=== PATIENT | male | born 1930 | race African-American/Black ===

== ENCOUNTER 2016-10-15 08:19 | Inpatient (IN) | payer OTHER ==
--- NOTE | 2016-10-15 08:29 | PDOC ---
History of Present Illness - History of Present Illness Initial Comments: 10/15/16 08:28 The patient is an 86-year-old man, from [facility] with a significant past medical history of hypertension, hypercholesterolemia, coronary artery disease status post bare metal stent placement, atrial fibrillation, right atrial lipoma, latent tuberculosis, Alzheimer's dementia and diabetes mellitus who presents to the emergency department via EMS for further evaluation of shortness of breath. Patient was noted to be hypoxic at 79%. En route, patient received Decadron IV and 1 DuoNeb treatment. Upon ED arrival, patient was noted to have a rectal temperature of 104.3, tachycardic to the 160s, tachypneic to 44 and hypoxic at 85%. Patient was immediately placed on BiPAP, with improvement of his oxygen saturation to 90%. Patient was recently in this ED (10/08/2016) for upper respiratory symptoms and was found to be Influenza A positive. Patient was ultimately admitted and was discharged to [facility] on [address] on Tamiflu. History is limited, as patient is unresponsive. Allergies: Penicillin Past Surgical History: Stent placement. Social History: Former smoker. No ETOH or recreational drug use. Primary Care Physician: Dr. Sloane Phillips <Rowan Funes - Last Filed: 10/15/16 09:15> <Narinder Austin - Last Filed: 10/15/16 10:07> - General Chief Complaint: Respiratory Stated Complaint: RESPIRATORY DISTRESS Time Seen by Provider: 10/15/16 08:28 Past History <Rowan Funes - Last Filed: 10/15/16 09:15> - Past Medical History Dementia: Yes (Alzheimers) Diabetes: Yes HTN: Yes Hypercholesterolemia: Yes - Surgical History Cardiac Surgery: Yes (stent) - Psycho/Social/Smoking Cessation Hx Anxiety: No Suicidal Ideation: No Smoking History: Former smoker Have you smoked in the past 12 months: No If you are a former smoker, when did you quit?: 1999 Hx Alcohol Use: No Drug/Substance Use Hx: No Substance Use Type: None Hx Substance Use Treatment: No <Narinder Austin - Last Filed: 10/15/16 10:07> - Past Medical History Allergies/Adverse Reactions: Allergies Allergy/AdvReac Type Severity Reaction Status Date / Time Penicillins Allergy Verified 10/15/16 08:41 Home Medications: Ambulatory Orders Metoprolol Succinate [Toprol XL -] 12.5 mg PO DAILY 03/26/16 Acetaminophen [Tylenol] 650 mg PO Q6H PRN 10/08/16 Amlodipine Besylate [Norvasc -] 2.5 mg PO DAILY 10/08/16 Aspirin [ASA -] 81 mg PO DAILY 10/08/16 Cyanocobalamin Vit B-12 Inj. [Vitamin B12 Injection -] 1,000 mcg IM ASDIR Metformin HCl [Metformin HCl ER] 500 mg PO BID 10/08/16 Albuterol 0.083% Nebulizer Princess [Ventolin 0.083% Nebulizer Soln -] 1 amp NEB QIDR #20 amp 10/11/16 Oseltamivir Phosphate [Tamiflu] 75 mg PO BID #4 capsule 10/11/16 Review of Systems - Review of Systems Able to Perform ROS?: No (unresponsive) <Narinder Austin - Last Filed: 10/15/16 10:07> *Physical Exam - Physical Exam Comments: 10/15/16 08:28 GENERAL: Lethargic. Unresponsive to painful stimuli. HEAD: Normal with no signs of trauma. EYES: Pupils are constricted, bilaterally. ENT: Ears normal, nares patent, oropharynx clear without exudates. Dry mucous membranes. NECK: Normal range of motion, supple without lymphadenopathy, JVD, or masses. LUNGS: Breath sounds equal, clear to auscultation bilaterally. No wheeze/ crackles. HEART: Irregularly, tachycardia, without murmur or rub. ABDOMEN: Soft/nontender/nondistended. BS wnl. No guarding or rebound. No palpable masses. No hepatosplenomegaly. EXTREMITIES: Normal range of motion, no edema. No clubbing or cyanosis. No cords, erythema. NEUROLOGICAL: Limited, as patient is unresponsive. PSYCH: Deferred. SKIN: Warm, Dry, normal turgor, no rashes or lesions noted. <Rowan Funes - Last Filed: 10/15/16 09:15> Repeat PE for Septic Shock - Vital Signs Vital Signs: Vital Signs Temperature 101.5 F H 10/15/16 10:02 Pulse Rate 132 H 10/15/16 10:02 Respiratory Rate 16 10/15/16 10:02 Blood Pressure 138/68 04/10/17 09:40 O2 Sat by Pulse Oximetry (%) 93 L 10/15/16 10:02 I have reviewed the most recent vital signs: Yes - PE CV for Spetic Shock: Regular Rhythm (tachycardia) Lungs: Lungs Clear Vascular: Left Radial: 2+, Left Doralis Pedis: 1+ Capillary Refill: <3 seconds Skin exam: Normal Color, Dry - Impression Impression: Vasopressors not indicated, pt still hypovolemic <Narinder Austin - Last Filed: 10/15/16 10:07> Procedures - Intubation Time of Intubation: 08:47 Intubation Method: orotracheal Tube Size (Fr): 7.0 Medications: Etomidate (50 ccs at 08:46), Rocuronium (20 ccs at 08:45) Tube position @ lip (cm): 22 Tube position confirmed by: Direct visualization, Chest x-ray, Breath sounds Breath Sounds after Intubation: equal Intubation Complications: no complications Post Intubation Xray: Yes <Rowan Funes - Last Filed: 10/15/16 09:15> Heart Score/ECG Review #1 ECG reviewed & interpreted by me at: 08:32 Compared to previous ECG there are: Changes noted 10/15/16 09:27 Chief fibrillation at 160 with rapid ventricular response and occasional PVC. ST depressions in the lateral leads, likely demand related. When compared to prior EKG performed on 10/08/16, patient was previously in sinus rhythm. #2 ECG reviewed & interpreted by me at: 09:28 General ECG Interpretation: Sinus Rhythm (tachycardia at 137), Normal Intervals , No acute ischemic changes (TWI with ST depression V4-6) <Narinder Austin - Last Filed: 10/15/16 10:07> ED Treatment Course - LABORATORY CBC & Chemistry Diagram: 10/15/16 09:16 10/15/16 09:16 <Narinder Austin - Last Filed: 10/15/16 10:07> Medical Decision Making - Critical Care Time Total Critical Care Time (minutes): 95 Critical Care Statement: The care of this patient involved high complexity decision making to prevent further life threatening deterioration of the patient 's condition and/or to evalute & treat vital organ system(s) failure or risk of failure. - Medical Decision Making 10/15/16 09:28 A portion of this note was documented by scribe services under my direction. I have reviewed the details of the note, within reason, and agree with the documentation with the following case summary and management plan written by me. 86-year-old male with multiple medical problems recently admitted for influenza A and discharged to [facility] now sent with EMS for acute respiratory distress. Presents on bipap hypoxic to upper 70s/80s. unresponsive to pain febrile to 104.3 tachycardic, tachypneic Called to bedside to evaluate the patient emergently for presumed septic shock. RAPID SEQUENCE INTUBATION: etomidate and rocuronium used, 7.0ett passed without difficulty, confirmed with EtCO2. sepsis protocol initiated. broad abx, pcn allergy IVF resuscitation ICU admission. Accepted for admission by Dr. Jones, in the ED. 10/15/16 09:38 Maintain his blood pressure at 113 systolic. Heart rate improved to 130, now sinus after Cardizem. Receiving IV fluid boluses, antibiotics, will continue to monitor. Low urine output, continued IV fluid resuscitation. 10/15/16 10:05 Improved on fluids, antibiotics, vent. On my preliminary review of the chest x-ray, ET tube is in adequate position, there are bilateral infiltrates. Labs notable for leukocytosis of 18, normal hemoglobin, pH of 7.2, lactate of 8 , acute renal insufficiency with creatinine 1.9 but normal potassium, elevated troponin of 3. All consistent with septic shock, will proceed with ICU admission. <Narinder Austin - Last Filed: 10/15/16 10:07> *DC/Admit/Observation/Transfer - Attestations Scribe Attestion: 10/15/16 08:28 Documentation prepared by Rowan Funes, acting as medical care manager for Narinder Austin MD. <Rowan Funes - Last Filed: 10/15/16 09:15> - Discharge Dispostion Admit: Yes <Narinder Austin - Last Filed: 10/15/16 10:07> Diagnosis at time of Disposition: Acute respiratory failure with hypoxia, Septic shock Sepsis Qualifiers: Sepsis type: sepsis due to unspecified organism Qualified Code(s): A41.9 - Sepsis, unspecified organism - Referrals Referrals: Sloane Phillips MD [Primary Care Provider] -
[2016-10-15] MEDS ORDERED: DEXAMETHASONE SOD PHOSPHATE 10 MG/1 ML VIAL ONE (08:36)
[2016-10-15] MEDS ORDERED: ETOMIDATE 20 MG/10 ML AMPUL IVPUSH ONE (08:42)
[2016-10-15] MEDS ORDERED: RAPID SEQUENCE INTUBATION KIT NR ONE (08:42)
[2016-10-15] MEDS ORDERED: ACETAMINOPHEN INJECTION 100 ML IVPB ONE (08:42)
[2016-10-15] MEDS ORDERED: dilTIAZem HCL 125 MG/25 ML - 25 ML VIAL ONE (08:43)
[2016-10-15] MEDS ORDERED: SODIUM CHLORIDE 0.9% 1000 ML INFUS.BAG IV PRN (08:58)
[2016-10-15] MEDS ORDERED: SODIUM CHLORIDE 1,000 ML IV STA (08:58)
[2016-10-15] MEDS ORDERED: ACETAMINOPHEN 1000 MG/100 ML VIAL (NON FORMULARY) IVPB ONE (08:59)
[2016-10-15] MEDS ORDERED: VANCOMYCIN 1,000 MG in DEXTROSE 5%-WATER - 250 ML IVPB ONE (08:59)
[2016-10-15] MEDS ORDERED: ROCURONIUM BROMIDE 50 MG/5 ML VIAL IVPUSH ONE (08:59)
[2016-10-15] MEDS ORDERED: ETOMIDATE 40 MG/20 ML VIAL IVPUSH ONE (08:59)
[2016-10-15] MEDS ORDERED: LEVOFLOXACIN 500 MG IVPB 100 ML IVPB ONE ×2 (08:59→09:19)
[2016-10-15] MEDS ORDERED: IPRATROPIUM BR 0.02% 0.5 MG/2.5 ML VIAL.NEB. NEB ONE (09:00)
[2016-10-15] MEDS ORDERED: VANCOMYCIN 1 GRAM (PRE-DOCKED) 250 ML IVPB ONE (09:19)
[2016-10-15 09:25] LABS: MCH 27.5 pg (25.7-33.7); MCHC 32.2 g/dl (32.0-35.9); MEAN CELL VOLUME 85.4 fl (80-96); MEAN PLT VOLUME 9.1 fl (7.5-11.1); PLATELET COUNT 504 K/MM3 (134-434); RDW 14.5 % (11.9-15.9); WHITE BLOOD COUNT 18.7 K/mm3 (4.0-10.0)
[2016-10-15] MEDS ORDERED: dilTIAZem HCL 50 MG/10 ML - 10 ML VIAL IVPUSH ONE (09:36)
[2016-10-15] MEDS ORDERED: SODIUM CHLORIDE 1,000 ML IV ONE ×2 (09:36→09:52)
[2016-10-15 09:48] LABS: ALBUMIN 2.2 g/dl (3.4-5.0); BILIRUBIN,TOTAL 1.2 mg/dL (0.2-1.0); CALCIUM 9.4 mg/dL (8.5-10.1); COCKROFT - GAULT 35.8; CREATININE 1.9 mg/dL (0.7-1.3); INR 1.24 (0.82-1.09); PROTHROMBIN TIME (PATIENT) 13.7 SEC (9.98-11.88); TOT PROT 7.1 g/dl (6.4-8.2)
[2016-10-15 09:51] LABS: ACTIVATED PTT 35.9 SECONDS (26.9-34.4)
[2016-10-15 09:51] LABS: ARTERIAL BLD GAS O2 SATURATION 95.3 % (90-98.9); ARTERIAL BLOOD GAS HCO3 18.1 meq/L (22-26)
[2016-10-15 09:52] LABS: URINE APPEARANCE CLEAR; URINE BILIRUBIN NEGATIVE (NEGATIVE); URINE COLOR AMBER; URINE GLUCOSE (UA) 3+ (NEGATIVE); URINE KETONE 1+ (NEGATIVE); URINE LEUK ESTERASE NEGATIVE (NEGATIVE); URINE NITRITE NEGATIVE (NEGATIVE); URINE UROBILINOGEN 2.0 E.U/dl E.U./dl (0.2-1.0)
[2016-10-15 09:54] LABS: ALLENS TEST POSITIVE; ART PUNCT SITE RIGHT RADIAL; ARTERIAL BLOOD GAS pH 7.19 (7.35-7.45); LPM/O2% 100%; MECH. VENT. Y; METHEMOGLOBIN 0.8 % (0.4-1.5); PT. ON O2? YES; TYPE OF O2 MECH VENT; VENT RATE 12; VT/PRESS 550
[2016-10-15 09:59] LABS: URINE BLOOD 1+ (NEGATIVE); URINE PROTEIN 3+ (NEGATIVE)
[2016-10-15 10:03] LABS: TROPONIN I 3.47 ng/ml (0.00-0.05)
[2016-10-15 10:08] LABS: GRANULAR CASTS 42 /lpf; URINE HYALINE CAST 23 /lpf; URINE MUCUS FEW; URINE RBC 17 /hpf (0-3); URINE WBC 5 /hpf (3-5)
[2016-10-15] MEDS ORDERED: ASPIRIN 300 MG SUPP.RECT PR ONE (10:08)
[2016-10-15] MEDS ORDERED: ASPIRIN 300 MG SUPP.RECT RC ONE (10:12)
--- NOTE | 2016-10-15 11:09 | HP ---
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 Cardiovascular: Yes: HTN - Smoking History Smoking history: Former smoker Have you smoked in the past 12 months: No If you are a former smoker, when did you quit?: 1999 - Alcohol/Substance Use Hx Alcohol Use: No - Social History ADL: Independent <Regina Jones - Last Filed: 10/15/16 11:09> - Primary Care Physician PCP: Regina Jones - Admission Chief Complaint: SOB History of Present Illness: The patient is an 86-year-old man, from [facility] with a significant past medical history of hypertension, hypercholesterolemia, coronary artery disease status post bare metal stent placement, atrial fibrillation, right atrial lipoma, latent tuberculosis, Alzheimer's dementia and diabetes mellitus who presents to the emergency department via EMS for further evaluation of shortness of breath. Patient was noted to be hypoxic at 79%. En route, patient received Decadron IV and 1 DuoNeb treatment. Upon ED arrival, patient was noted to have a rectal temperature of 104.3, tachycardic to the 160s, tachypneic to 44 and hypoxic at 85%. Patient was immediately placed on BiPAP, with improvement of his oxygen saturation to 90%. Patient was recently in this ED (10/08/2016) for upper respiratory symptoms and was found to be Influenza A positive. Patient was ultimately admitted and was discharged to [facility] on Tamiflu. Patient intubated in ED due to respiratory distress. Workup in the ED consistent with Sepsis Given broad spectrum abx, IVF and steroids. Patient to be admitted to ICU. Patient seen by me in the ICU. Patient known to me from previous admission. Currently sedated and intubated in the ER. History Source: Medical Record Limitations to Obtaining History: Intubated <Zehra Bridges - Last Filed: 10/15/16 11:20> Home Medications <Regina Jones - Last Filed: 10/15/16 11:09> <Zehra Bridges - Last Filed: 10/15/16 11:20> - Allergies Allergies/Adverse Reactions: Allergies Allergy/AdvReac Type Severity Reaction Status Date / Time Penicillins Allergy Verified 10/15/16 08:41 - Home Medications Home Medications: Ambulatory Orders Metoprolol Succinate [Toprol XL -] 12.5 mg PO DAILY 03/26/16 Acetaminophen [Tylenol] 650 mg PO Q6H PRN 10/08/16 Amlodipine Besylate [Norvasc -] 2.5 mg PO DAILY 10/08/16 Aspirin [ASA -] 81 mg PO DAILY 10/08/16 Cyanocobalamin Vit B-12 Inj. [Vitamin B12 Injection -] 1,000 mcg IM ASDIR Metformin HCl [Metformin HCl ER] 500 mg PO BID 10/08/16 Albuterol 0.083% Nebulizer Princess [Ventolin 0.083% Nebulizer Soln -] 1 amp NEB QIDR #20 amp 10/11/16 Review of Systems Findings/Remarks: see HPI <Zehra Bridges - Last Filed: 10/15/16 11:20> Physical Examination Vital Signs: Vital Signs Temperature 100.7 F H 10/15/16 10:44 Pulse Rate 97 H 10/15/16 10:58 Respiratory Rate 16 10/15/16 10:58 Blood Pressure 104/70 10/15/16 10:58 O2 Sat by Pulse Oximetry (%) 97 10/15/16 10:58 <Regina Jones - Last Filed: 10/15/16 11:09> Vital Signs: Vital Signs Temperature 100.7 F H 10/15/16 10:44 Pulse Rate 97 H 10/15/16 10:58 Respiratory Rate 16 10/15/16 10:58 Blood Pressure 104/70 10/15/16 10:58 O2 Sat by Pulse Oximetry (%) 97 10/15/16 10:58 Findings/Remarks: Intubated Neck: Yes: Supple Cardiovascular: Yes: Regular Rate and Rhythm, Tachycardia Respiratory: Yes: Rhonchi (bilateral) Gastrointestinal: Yes: Soft Edema: No Neurological: Yes: Unresponsive <Zehra Bridges - Last Filed: 10/15/16 11:20> Imaging - Results Chest X-ray: Image Reviewed EKG: Report Reviewed <Zehra Bridges - Last Filed: 10/15/16 11:20> Problem List - Problems (1) Acute respiratory failure with hypoxia Code(s): J96.01 - ACUTE RESPIRATORY FAILURE WITH HYPOXIA (2) Sepsis Code(s): A41.9 - SEPSIS, UNSPECIFIED ORGANISM Qualifiers: Sepsis type: sepsis due to unspecified organism Qualified Code(s): A41.9 - Sepsis, unspecified organism (3) Septic shock Code(s): A41.9 - SEPSIS, UNSPECIFIED ORGANISM R65.21 - SEVERE SEPSIS WITH SEPTIC SHOCK (4) Alzheimer disease Code(s): G30.9 - ALZHEIMER'S DISEASE, UNSPECIFIED Qualifiers: Alzheimer's disease onset: early-onset Dementia behavioral disturbance : without behavioral disturbance Qualified Code(s): G30.0 - Alzheimer's disease with early onset; F02.81 - Dementia in other diseases classified elsewhere with behavioral disturbance (5) Influenza A Code(s): J10.1 - FLU DUE TO OTH IDENT INFLUENZA VIRUS W OTH RESP MANIFEST (6) Lactic acid blood increased Code(s): R79.89 - OTHER SPECIFIED ABNORMAL FINDINGS OF BLOOD CHEMISTRY <Zehra Bridges - Last Filed: 10/15/16 11:20> Assessment/Plan PAtient to be admitted to ICU. Broad spectrum abx. IVF. Monitor electrolytes and lactic acid level. Critical care team to follow. Condition critical. Will follow. Documentation prepared by Zehra Bridges, acting as a medical orderly for Regina Jones MD. <Zehra Bridges - Last Filed: 10/15/16 11:20>
--- NOTE | 2016-10-15 11:15 | EKG ---
Test Reason : Blood Pressure : / mmHG Vent. 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
[2016-10-15] MEDS ORDERED: SODIUM CHLORIDE 1,000 ML IV SCH ×2 (11:30→12:00)
--- NOTE | 2016-10-15 11:39 | CON.CARD ---
Consult Consult Specialty:: cardio Referred by:: kate Reason for Consultation:: afib, positive troponin, cad - History of Present Illness Chief Complaint: sepsis, fever History of Present Illness: 86-year-old man sent from [facility] with shortness of breath. Patient was noted to be hypoxic at 79%. En route, patient received Decadron IV and 1 DuoNeb treatment. Upon ED arrival, patient was noted to have a rectal temperature of 104.3, tachycardic to the 160s, tachypneic to 44 and hypoxic at 85%. + elevated lactic acid. Patient was immediately placed on BiPAP, with improvement of his oxygen saturation to 90%. Patient was recently in this ED (10/08/2016) for upper respiratory symptoms and was found to be Influenza A positive. Patient was ultimately admitted and was discharged to [facility] on Tamiflu. Patient intubated in ED due to respiratory distress. Workup in the ED consistent with Sepsis Given broad spectrum abx, IVF and steroids. intubated/sedated so no history obtainable at present PMH: hypertension, hypercholesterolemia, coronary artery disease status post bare metal stent placement (? details), right atrial lipoma, latent tuberculosis , Alzheimer's dementia and diabetes mellitus. 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 Cardio/Vascular: Yes: HTN - Alcohol/Substance Use Hx Alcohol Use: No - Smoking History Smoking history: Former smoker Have you smoked in the past 12 months: No If you are a former smoker, when did you quit?: 1999 - Social History Usual Living Arrangement: Alone ADL: Independent Home Medications - Allergies Allergies/Adverse Reactions: Allergies Allergy/AdvReac Type Severity Reaction Status Date / Time Penicillins Allergy Verified 10/15/16 08:41 - Home Medications Home Medications: Ambulatory Orders Metoprolol Succinate [Toprol XL -] 12.5 mg PO DAILY 03/26/16 Acetaminophen [Tylenol] 650 mg PO Q6H PRN 10/08/16 Amlodipine Besylate [Norvasc -] 2.5 mg PO DAILY 10/08/16 Aspirin [ASA -] 81 mg PO DAILY 10/08/16 Cyanocobalamin Vit B-12 Inj. [Vitamin B12 Injection -] 1,000 mcg IM ASDIR Metformin HCl [Metformin HCl ER] 500 mg PO BID 10/08/16 Albuterol 0.083% Nebulizer Princess [Ventolin 0.083% Nebulizer Soln -] [facility] 10/11/16 Family Disease History - Family Disease History Family History: Unable to Obtain Review of Systems Unable to obtain ROS, reason: intubated/sedated Vital Signs: Vital Signs Temperature 100.7 F H 10/15/16 10:44 Pulse Rate 97 H 10/15/16 10:58 Respiratory Rate 16 10/15/16 10:58 Blood Pressure 104/70 10/15/16 10:58 O2 Sat by Pulse Oximetry (%) 97 10/15/16 10:58 Constitutional: Yes: Well Nourished, No Distress Eyes: No: Sclera Icterus HENT: No: Nasal Congestion Neck: No: Decreased ROM Respiratory: Yes: CTA Bilaterally (anteriorly). No: Accessory Muscle Use, Rales , Wheezes Gastrointestinal: Yes: Normal Bowel Sounds. No: Distention, Hepatomegaly, Palpable Mass, Tenderness Cardiovascular: Yes: Regular Rate and Rhythm JVD: No Carotid Bruit: No PMI: Non-Displaced Heart Sounds: Yes: S1, S2. No: Gallop Murmur: No: Systolic Murmur, Diastolic Murmur Musculoskeletal: Yes: Other (No kyphosis) Extremities: No: Cold, Cyanosis Edema: No Peripheral Pulses: 2+ Left Carotid, 2+ Right Carotid, 2+ Left Doralis Pedis, 2+ Right Dorsalis Pedis Integumentary: No: Jaundice Neurological: No: Alert, Oriented Psychiatric: No: Agitated - Other Data Labs, Other Data: INR, PTT INR 1.24 (0.82-1.09) H 10/15/16 09:16 Laboratory Tests 10/15/16 10/15/16 10/15/16 09:15 09:16 09:16 WBC 18.7 H D Hgb 16.3 D Plt Count 504 H D INR 1.24 H ABG pH ABG pCO2 at Pt Temp ABG pO2 at Pt Temp Oxygen Flow Rate Sodium Potassium Carbon Dioxide BUN Creatinine Lactic Acid 8.135 H* AST ALT Troponin I 10/15/16 10/15/16 10/15/16 09:16 09:22 09:48 WBC Hgb Plt Count INR ABG pH 7.19 L* ABG pCO2 at Pt Temp 49.7 H ABG pO2 at Pt Temp 105.0 H Oxygen Flow Rate 100% Sodium 147 H Potassium 4.1 Carbon Dioxide 21 D BUN 33 H D Creatinine 1.9 H D Lactic Acid 7.074 H* AST 23 ALT 17 Troponin I 3.47 H* D tele: sinus tach to 120s Imaging - Results Chest X-ray: Image Reviewed Assessment/Plan acute hypoxic resp failure: -cxr with bilat infiltrates lower lung angel, new vs 10/08; no cephalization or effusions -suspect PNA (hi fever, recent + flu) >> chf -sepsis picture noted hi fever, sepsis -hemodynamically stable at present, without need for pressors lactic acidosis: -cont sepsis tx: ivf, abx JULIET: -creat 1.9, from 0.9-1.0 prior -? all sepsis -per crit care, pmd prior h/o CAD, elevated troponin: -trop 3.4, normal cp -florid sepsis picture makes the elevated troponin likely due to sepsis direct myocardial injury, vs Type II MN from hypoxia/tachycardia/? 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 with ST elevations of 1mm V1 and V2, but to 2.5mm in V3 and 1.5mm V4; there were only 0.5mm elevations in V1-V3 at baseline, ST segments flat in V4 previously -repeat ECG 11:53am, HR down to 118; q waves V1-3 with diffuse TWIs anteriorly c /w ischemia; 1mm ST elev v1/v2 persists; in V3 there may be 1mm elevations, however T wave appears to start immediately after the QRS and this may account for the appearance (no elevations in v4 at present) -cannot definitively rule out acute AWMI based on this ecg, however not likely given changes are improving, not evolving, on serial tracings; -presence of q waves in all leads with st elevation makes definitive dx of acute MN impossible -echo showing normal wall motion in anterior wall/septum will be helpful to rule out dx, however if it's abnormal we don't know if new or old in light of baseline ecg with old AWMI and no prior echo here -stat echo ordered--IF NORMAL MOTION IN ANTERIOR WALL, THIS IS DEFINITELY NOT ACUTE AW STEMI -pt currently at prohibitive risk for life-threatening complications of cath given JULIET, florid sepsis and acute hypoxic resp failure from PNA -signif dementia is a relative contraindication to thrombolysis--dr love states that dr mulligan reports pt A and O x 1 only at baseline, hence risks of ICH from lytics appear to be signif > benefits. -will trend cardiac enzymes -home meds: ASA, bb only -start ASA suppository (given already), UFH gtt -given doubt chf, will start low dose IV metopr (2.5mg q8hrs)--watch for hypotension -once NG or OG tube in place, will start statin, po bb and consider plavix est crit care time 38 min
[2016-10-15] MEDS ORDERED: HEPARIN NA (PORCINE) 5,000 UNITS/ML 1ML VIAL IVPUSH PRN (12:20)
--- NOTE | 2016-10-15 12:35 | PN ---
[id number] the resident's note and discussed the case with the resident. I agree with the resident's findings and plan as documented. SUBJECTIVE: Pt seen and examined in the ICU. Briefly,86yo male with h/o HTN, hyperlipidemia , DM, CAD s/p stent, latent TB, DM, Alzheimer's dementia who [facility]. Noted to be hypoxic to 79%, febrile to 104.3, decompensated in ER and subsequently intubated. Recently seen in the ER for respiratory complaints, found to be Influenza A positive and discharged on tamiflu. Currently intubated, sedated, unable to provide further history at this time. OBJECTIVE: Last Vital Signs Temp Pulse Resp BP Pulse Ox 98.4 F 118 H 17 114/75 97 10/15/16 11:43 10/15/16 11:43 10/15/16 11:43 10/15/16 11:43 10/15/16 11:33 Intake & Output 10/12/16 10/13/16 10/14/16 10/15/16 23:59 23:59 23:59 23:59 Intake Total 4350 Output Total 30 Balance 4320 Weight 200 lb Gen: intubated, sedated Heart: tachycardic, regular Lung: distant breath sounds Abd: soft, nontender Ext: no edema CBC, BMP 10/15/16 09:16 10/15/16 09:16 ABG Results ABG pH 7.19 (7.35-7.45) L* 10/15/16 09:48 ABG pCO2 at Pt Temp 49.7 mmHg (35-45) H 10/15/16 09:48 ABG pO2 at Pt Temp 105.0 mmHg (68-100) H 10/15/16 09:48 ABG HCO3 18.1 meq/L (22-26) L 10/15/16 09:48 ABG O2 Sat (Measured) 95.3 % (90-98.9) 10/15/16 09:48 ABG O2 Content 17.6 % vol (15-22) 10/15/16 09:48 ABG Base Excess -10.0 meq/l (-2-2) L 10/15/16 09:48 CXR: bilateral infiltrates Active Medications Aspirin (Asa -) 300 mg RC DAILY KARLOS Chlorhexidine Gluconate (Hibiclens For Decolonization -) 1 applic TP HS KARLOS Heparin Sodium (Porcine) (Heparin -) 1,000 unit IVPUSH PRN PRN PRN Reason: Heparin Heparin Sodium (Porcine) (Heparin -) 5,000 unit IVPUSH PRN PRN PRN Reason: Heparin Sodium Chloride (Normal Saline -) 1,000 mls @ 100 mls/hr IV ASDIR KARLOS Last Admin: 10/15/16 12:10 Dose: Not Given Sodium Chloride (Normal Saline -) 1,000 mls @ 200 mls/hr IV ASDIR KARLOS Last Admin: 10/15/16 12:10 Dose: 200 mls/hr Heparin Sodium (Porcine) 25, (000 unit/ Sodium Chloride) 500 mls @ 16 mls/hr IV TITR KARLOS; 800 UNIT/HR PRN Reason: Protocol Insulin Aspart (Novolog Vial Sliding Scale -) 1 vial SQ BIDAC KARLOS PRN Reason: Protocol Metoprolol Tartrate (Lopressor Injection -) 2.5 mg IVPUSH Q8H-IV KARLOS Mupirocin (Bactroban Ointment (For Decolonization) -) 1 applic NS BID KARLOS Stop: 10/20/16 21:59 Sodium Chloride (Normal Saline -) 900 ml IV Q20M PRN PRN Reason: MAP<65mm Hg OR SBP <90 Last Admin: 10/15/16 10:12 Dose: 900 ml ASSESSMENT AND PLAN: Acute Hypoxic Respiratory Failure Pneumonia Recent Influenza Severe Sepsis Acute Kidney Injury Lactic Acidosis +Troponins - ?Demand Ischemia from Sepsis HTN CAD DM Dementia - IV antibiotics to cover health care acquired organisms - f/u cultures - ID evaluation given PCN allergy, received vanco/levaquin in ER - IVF - monitor urine output, creatinine - trend lactate - cycle cardiac enzymes - echocardiogram - ASA, beta regina if BP tolerates - anticoagulation per cardiology - taper Fio2 to keep Spo2 >90% - recheck ABG in AM - lighten sedation in AM to assess mental status - start spontaneous breathing trials as tolerated when mental status improves - DVT/GI prophylaxis - ICU monitoring critical care time spent in reviewing chart, evaluating patient and formulating plan 40 min
[2016-10-15 12:47] LABS: BURR CELLS 2+
[2016-10-15 13:35] VITALS: BMI 22.1
[2016-10-15] MEDS: METOPROLOL TARTRATE 5 MG/5 ML VIAL IVPUSH SCH ×2 (14:02→17:52)
--- NOTE | 2016-10-15 14:48 | CONSULT ---
Consultation: REQUESTING PROVIDER: CONSULT REQUEST: We have been asked to medically evaluate this patient for (ICU) . HISTORY OF PRESENT ILLNESS: Patient is a 86 year old male from [facility] with PMH of HTN, HLD, CAD s/p bare metal stent, afib, L atrial lipoma, latent TB, Alzheimer's dementia and DM who was recently discharged for Influenza A and treated with Tamiflu 10/11/16 who presents to the ER via EMS for worsening dypsnea and confusion. History was obtained through past records. Patient's oxygen saturation was 71% and he received decadron and duonebs. His rectal temperature was 104.3, and was tachycardic and tachypnic. He was placed on Bipap and was saturating at 90% before he was intubated via RSI. He was started on broad spectrum ABX, IVF, and steroids. REVIEW OF SYSTEMS: UNABLE TO ASSESS intubated and sedated. CONSTITUTIONAL: Absent: fever, chills, diaphoresis, generalized weakness, malaise, loss of appetite, weight change HEENT: Absent: rhinorrhea, nasal congestion, throat pain, throat swelling, difficulty swallowing, mouth swelling, ear pain, eye pain, visual changes CARDIOVASCULAR: Absent: chest pain, syncope, palpitations, irregular heart rate, lightheadedness , peripheral edema RESPIRATORY: Absent: cough, shortness of breath, dyspnea with exertion, orthopnea, wheezing, stridor, hemoptysis GASTROINTESTINAL: Absent: abdominal pain, abdominal distension, nausea, vomiting, diarrhea, constipation, melena, hematochezia GENITOURINARY: Absent: dysuria, frequency, urgency, hesitancy, hematuria, flank pain, genital pain MUSCULOSKELETAL: Absent: myalgia, arthralgia, joint swelling, back pain, neck pain SKIN: Absent: rash, itching, pallor HEMATOLOGIC/IMMUNOLOGIC: Absent: easy bleeding, easy bruising, lymphadenopathy, frequent infections ENDOCRINE: Absent: unexplained weight gain, unexplained weight loss, heat intolerance, cold intolerance NEUROLOGIC: Absent: headache, focal weakness or paresthesias, dizziness, unsteady gait, seizure, mental status changes, bladder or bowel incontinence PSYCHIATRIC: Absent: anxiety, depression, suicidal or homicidal ideation, hallucinations. PHYSICAL EXAMINATION Vital Signs - 24 hr 10/15/16 10/15/16 10/15/16 10:34 10:44 10:58 Temperature 100.7 F H Pulse Rate Pulse Rate [ 112 H 103 H 97 H Apical] Respiratory 16 16 16 Rate Blood Pressure Blood Pressure 108/65 101/62 104/70 [Right Arm] O2 Sat by Pulse 97 97 97 Oximetry (%) 10/15/16 10/15/16 10/15/16 11:33 11:43 13:27 Temperature 98.4 F 100.1 F H Pulse Rate 115 H 118 H 118 H Pulse Rate [ Apical] Respiratory 17 17 17 Rate Blood Pressure 114/75 129/93 Blood Pressure [Right Arm] O2 Sat by Pulse 97 Oximetry (%) 10/15/16 10/15/16 13:37 14:02 Temperature Pulse Rate 118 H Pulse Rate [ Apical] Respiratory 17 Rate Blood Pressure 140/92 Blood Pressure [Right Arm] O2 Sat by Pulse 97 Oximetry (%) GENERAL: intubated and sedated. in no acute distress., aler HEAD: Normal with no signs of trauma. EYES: pin point pupils, no sclera anicteric, conjunctiva clear. EARS, NOSE, THROAT: Ears normal, nares patent, oropharynx clear without exudates. Moist mucous membranes. iET tube inplace. NECK: Normal range of motion, supple without lymphadenopathy, JVD, or masses. LUNGS: distant breath sounds, + crackles, No wheezes, and no crackles. No accessory muscle use. HEART: distant heart sounds no murmurs appreciated. ABDOMEN: Soft, nontender, not distended, normoactive bowel sounds, no guarding, no rebound, no masses. MUSCULOSKELETAL: Normal range of motion at all joints. No bony deformities or tenderness. No CVA tenderness. LOWER EXTREMITIES: 2+ pulses, warm, well-perfused. No calf tenderness. No peripheral edema. PSYCHIATRIC: intubated sedated SKIN: Warm, dry, normal turgor, no rashes or lesions noted. Laboratory Results - last 24 hr 10/15/16 12:04 Blood Type O POSITIVE Antibody Screen Negative Active Medications Generic Name Dose Route Start Last Admin Trade Name Freq PRN Reason Stop Dose Admin Aspirin 300 mg 10/16/16 10:00 Asa - RC DAILY [facility] Chlorhexidine Gluconate 1 applic 10/15/16 22:00 Hibiclens For Decolonization - TP HS [facility] Heparin Sodium (Porcine) 1,000 unit 10/15/16 12:20 Heparin - IVPUSH PRN PRN Heparin Heparin Sodium (Porcine) 5,000 unit 10/15/16 12:20 Heparin - IVPUSH PRN PRN Heparin Sodium Chloride 1,000 mls @ 100 mls/hr 10/15/16 11:30 10/15/16 12:10 Normal Saline - IV Not Given ASDIR KARLOS Sodium Chloride 1,000 mls @ 200 mls/hr 10/15/16 12:00 10/15/16 12:10 Normal Saline - IV 200 mls/hr ASDIR KARLOS Administration Heparin Sodium (Porcine) 25, 500 mls @ 16 mls/hr 10/15/16 12:30 000 unit/ Sodium Chloride IV TITR [facility] Protocol 800 UNIT/HR Insulin Aspart 1 vial 10/15/16 16:30 Novolog Vial Sliding Scale - SQ BIDAC [facility] Protocol Metoprolol Tartrate 2.5 mg 10/15/16 12:30 10/15/16 14:02 Lopressor Injection - IVPUSH 2.5 mg Q8H-IV [facility] Administration Mupirocin 1 applic 10/15/16 22:00 Bactroban Ointment (For Decolonization) - NS 10/20/16 21:59 BID [facility] Sodium Chloride 900 ml 10/15/16 08:58 10/15/16 10:12 Normal Saline - IV 900 ml Q20M PRN Administration MAP<65mm Hg OR SBP <90 ASSESSMENT/PLAN: Patient is a 86 year old male from [facility] with PMH of HTN, HLD, CAD s/p bare metal stent, afib, L atrial lipoma, latent TB, Alzheimer's dementia and DM who was recently discharged for Influenza A and treated with Tamiflu 10/11/16 who presents to the ER via EMS for worsening dypsnea and confusion. Sever sepsis sepis protocol in place trend lactic acid -trending down NS@200 running ID consult. PCN allergy noted and levaquin + vanc given in ER f/u cultures Acute hypoxic respiratory failure Cultures pending CXR read with b/l lower lobe infiltrate, PNA vs pulmonary edema Patient currently mechanically ventilated on VCV-AC FIO2 - 60%, PEEP - 5, PSV - 5 Taper FI O2, keep O2 >90% ABG in AM Light sedation AM to assist mental status DKA, sugar 347, K 4.1, bicarb >18, gap is 21 BMP sent, will start normal saline and insulin ggt f/u acetone, replete K if <3.3 when glucose <200, change to D5NS when gap closes consider switching to Basel insulin and cover with ISS, repeat labs Q3 hours FS Q1 hours Elevated Troponins, 3.47 trending down ASA given trend troponins, echo shows EF of 29.6%, left ventricular systolic function severely reduced. Left atrium borderline dilated. RV mildly dilated. RV size moderately reduced. EKG improving and not evolving on serial tracing, Q waves in all leads makes definitive ME diagnosis impossible None acute wall ME stemi Dementia is relative contraindication to thrombolysis As per cardiac, will start UFH ggt Agree with starting metoprolol 2.5 and will watch for hypotension Will start statin, beta blockers, and plavix once NGT in place JULIET, creatinine 1.9 from baseline of .9-1 prerenal azotemia 2/2 sepsis monitor urine output and creatinine IVF Dementia as per medical records, baseline verbal and AOx1 currently cannot assess, sedated and intubated HTN as per cardiac, lopressor given if BP <120/80, hold antihypertensives FEN NPO IVNS with KCL replete electrolytes as needed. DVT prophylaxis on heparin ggt GI prophylaxis - protonix Dispo: We will continue to follow the patient. Thank you for this consultative opportunity. Visit type - Emergency Visit Emergency Visit: Yes ED Registration Date: 10/15/16 Care time: The patient presented to the Emergency Department on the above date and was hospitalized for further evaluation of their emergent condition. - New Patient This patient is new to me today: Yes Date on this admission: 10/15/16 - Critical Care Critical Care patient: Yes Total Critical Care Time (in minutes): 43 Critical Care Statement: The care of this patient involved high complexity decision making to prevent further life threatening deterioration of the patient 's condition and/or to evalute & treat vital organ system(s) failure or risk of failure.
--- NOTE | 2016-10-15 14:53 | PN ---
Progress Note, Physician Chief Complaint: ID Intubated poorly responsive Full note dictated - Current Medication List Current Medications: Active Medications Aspirin (Asa -) 300 mg RC DAILY [facility] Chlorhexidine Gluconate (Hibiclens For Decolonization -) 1 applic TP HS [facility] Heparin Sodium (Porcine) (Heparin -) 1,000 unit IVPUSH PRN PRN PRN Reason: Heparin Heparin Sodium (Porcine) (Heparin -) 5,000 unit IVPUSH PRN PRN PRN Reason: Heparin Sodium Chloride (Normal Saline -) 1,000 mls @ 100 mls/hr IV ASDIR KARLOS Last Admin: 10/15/16 12:10 Dose: Not Given Sodium Chloride (Normal Saline -) 1,000 mls @ 200 mls/hr IV ASDIR KARLOS Last Admin: 10/15/16 12:10 Dose: 200 mls/hr Heparin Sodium (Porcine) 25, (000 unit/ Sodium Chloride) 500 mls @ 16 mls/hr IV TITR KARLOS; 800 UNIT/HR PRN Reason: Protocol Insulin Aspart (Novolog Vial Sliding Scale -) 1 vial SQ BIDAC KARLOS PRN Reason: Protocol Metoprolol Tartrate (Lopressor Injection -) 2.5 mg IVPUSH Q8H-IV [facility]OS Last Admin: 10/15/16 14:02 Dose: 2.5 mg Mupirocin (Bactroban Ointment (For Decolonization) -) 1 applic NS BID [facility]OS Stop: 10/20/16 21:59 Sodium Chloride (Normal Saline -) 900 ml IV Q20M PRN PRN Reason: MAP<65mm Hg OR SBP <90 Last Admin: 10/15/16 10:12 Dose: 900 ml - Objective Vital Signs: Vital Signs Temperature 100.1 F H 10/15/16 13:27 Pulse Rate 118 H 10/15/16 14:02 Respiratory Rate 28 H 10/15/16 14:17 Blood Pressure 140/92 10/15/16 14:02 O2 Sat by Pulse Oximetry (%) 97 10/15/16 13:37 Cardiovascular: Yes: S1, S2 Respiratory: Yes: WNL, Regular, CTA Bilaterally Gastrointestinal: Yes: Soft. No: Tenderness Edema: No Labs: INR, PTT INR 1.24 (0.82-1.09) H 10/15/16 09:16 Assessment/Plan Microbiology 10/15/16 10:45 Nasopharyngeal Swab Influenza Types A,B Antigen ([facility]IDGETTE) - Final 10/15/16 10:45 Nasopharyngeal Swab - Final Laboratory Tests 10/15/16 10/15/16 10/15/16 09:15 09:16 09:16 WBC 18.7 H D Hgb 16.3 D Plt Count 504 H D Neutrophils % 81.0 D INR 1.24 H ABG pH ABG pCO2 at Pt Temp ABG pO2 at Pt Temp Anion Gap BUN Creatinine Lactic Acid 8.135 H* Total Bilirubin AST Troponin I Ur Leukocyte Esterase Urine RBC Urine WBC 10/15/16 10/15/16 10/15/16 09:16 09:22 09:48 WBC Hgb Plt Count Neutrophils % INR ABG pH 7.19 L* ABG pCO2 at Pt Temp 49.7 H ABG pO2 at Pt Temp 105.0 H Anion Gap 21 H BUN 33 H D Creatinine 1.9 H D Lactic Acid Total Bilirubin 1.2 H D AST 23 Troponin I 3.47 H* D Ur Leukocyte Esterase Negative Urine RBC 17 Urine WBC 5 Assessment Recent Influenza infection earlier this month Bilateral infiltrates ? HAP Respiratory failure Plan Cultures include sputum Vancomycin and Zosyn SAMREEN Peña MD
[2016-10-15] MEDS: HEPARIN - 25,000 UNIT in SODIUM CHLORIDE 495 ML IV SCH (15:39)
[2016-10-15] MEDS ORDERED: PT OWN MED DRAWER 7, Y5N ONE ×2 (15:43→21:10)
[2016-10-15] MEDS: PANTOPRAZOLE SODIUM 100 ML IVPB SCH (15:45)
[2016-10-15 16:11] LABS: CALCIUM 7.8 mg/dL (8.5-10.1); COCKROFT - GAULT 49.01; CREATININE 1.2 mg/dL (0.7-1.3)
[2016-10-15] MEDS ORDERED: INSULIN SLIDING SCALE (NOVOLOG) 1 VIAL SQ SCH (16:30)
[2016-10-15] MEDS ORDERED: INSULIN REGULAR 100 UNITS in SODIUM CHLORIDE 99 ML IVPB SCH (16:30)
[2016-10-15 16:35] LABS: TROPONIN I 2.16 ng/ml (0.00-0.05)
[2016-10-15] MEDS: PROPOFOL 100 ML IVPB SCH (17:47)
[2016-10-15] MEDS: CEFEPIME 0.5 GM in DEXTROSE 5%-WATER - 100 ML IVPB SCH ×2 (17:51→22:05)
[2016-10-15] MEDS: POTASSIUM CHLORIDE 10 MEQ in SODIUM CHLORIDE 1,000 ML IVPB SCH ×2 (18:21→22:16)
[2016-10-15] MEDS: ACETAMINOPHEN 650 MG SUPP.RECT PR PRN (18:22)
--- NOTE | 2016-10-15 18:45 | CONS ---
DATE OF CONSULTATION: DATE OF DICTATION: 10/15/2016 INFECTIOUS DISEASE CONSULTATION HISTORY OF PRESENT ILLNESS: This is an 86-year-old male from [facility] admitted with chief complaint of shortness of breath, hypoxemia, and fever to 104.3. The patient is brought to the ICU where he is currently intubated. The history is significant in that he has been recently seen by Dr. Arenas earlier October for admission for influenza. He had been admitted October 08 and discharged on October 11. Cultures at that time of urine and blood were no growth. His chest x-ray now has bilateral pulmonary infiltrates, and I am asked to see him for further evaluation and treatment. PAST MEDICAL HISTORY: Includes hypertension, hyperlipidemia, coronary artery disease, atrial fibrillation, relation latent TB treated, Alzheimer dementia, diabetes mellitus. CURRENT MEDICATIONS: Levofloxacin, vancomycin, metoprolol, insulin. ALLERGIES: PENICILLIN. SOCIAL HISTORY: long term resident. Former smoker. No history of alcohol or recreational drugs. FAMILY HISTORY: Unobtainable. REVIEW OF SYSTEMS: Respiratory: Currently intubated secondary to severe hypoxemia and tachypnea. Cardiac: History of coronary stent placement, atrial fibrillation, no recent chest pain, palpitation, syncope. Gastrointestinal: No abdominal pain, vomiting, diarrhea, blood per rectum. Genitourinary: No history of dysuria, urinary frequency, gross hematuria. PHYSICAL EXAMINATION: General: He was a poorly responsive male on a ventilator. Vital signs: Temperature 100.1, pulse 118, blood pressure 140/92, respirations 28, FiO2 of 60%, O2 saturation 97%. HEENT: Endotracheal tube. Lungs: Bilateral breath sounds with bilateral rhonchi. Heart: S1, S2. Regular rhythm without audible murmur. Abdomen: Soft. Nontender without hepatosplenomegaly. Normoactive bowel sounds. Extremities: Without clubbing, cyanosis, or edema. LABORATORY: The white count is 18.7, hemoglobin 16.3, platelets of 504, left shift, 6% bands, INR 1.24. AB.19, pCO2 of 50 pO2 of 105 on 100% oxygen. BUN 33, creatinine 1.9, glucose 347, lactic acid 8.1. Troponin 3.47. Urinalysis with 17 RBCs, 5 WBCs, 23 hyaline casts, 42 granular casts. Chest x-ray was reviewed, shows bilateral air space disease. ASSESSMENT: An 86-year-old male with recent influenza diagnosis, early October, status post 3 day admission to the hospital, readmitted with severe hypoxemia and bilateral pulmonary infiltrates. The possibility of a healthcare associated pneumonia is considered including methicillin resistant Staphylococcus aureus. Additionally, differential diagnosis would be post influenza bacterial superinfection with staphylococcus aureus or other organism. PLAN: Vancomycin 1 g given. Will check vancomycin level in the a.m. Empiric therapy with cefepime, adjusted for creatinine clearance in light of his renal insufficiency. Blood cultures. Sputum culture. Legionella urinary antigen to be obtained. SANDY FERRERA M.D. [id number]
[2016-10-15] MEDS ORDERED: CEFEPIME HCL 2 GM VIAL (RESTRICTED TO ID) IVPB SCH (22:00)
[2016-10-15] MEDS: MUPIROCIN 2% TOPICAL OINTMENT FOR DECOLONIZATION NS SCH (22:13)
[2016-10-15] MEDS: CHLORHEXIDINE GLUCONATE 4% CLEANSER FOR DECOLONIZATION TP SCH (22:15)
[2016-10-15] MEDS: HEPARIN NA (PORCINE) 5,000 UNITS/ML 1ML VIAL IVPUSH PRN (23:41)
[2016-10-16] MEDS: METOPROLOL TARTRATE 5 MG/5 ML VIAL IVPUSH SCH ×3 (02:52→18:49)
[2016-10-16] MEDS: POTASSIUM CHLORIDE 10 MEQ in SODIUM CHLORIDE 1,000 ML IVPB SCH (02:53)
[2016-10-16] MEDS ORDERED: PROPOFOL 100 ML ONE (05:16)
[2016-10-16 06:35] LABS: BASOPHIL 0.9 % (0-2.0); MCH 27.3 pg (25.7-33.7); MEAN CELL VOLUME 85.1 fl (80-96); MEAN PLT VOLUME 9.1 fl (7.5-11.1); NEUTROPHILS 94.5 % (42.8-82.8); PLATELET COUNT 299 K/MM3 (134-434); RDW 14.6 % (11.9-15.9); WHITE BLOOD COUNT 15.4 K/mm3 (4.0-10.0)
[2016-10-16 07:05] LABS: ALBUMIN 1.4 g/dl (3.4-5.0); ANION GAP 10 (8-16); CALCIUM 7.6 mg/dL (8.5-10.1); CO2 22 mmol/L (21-32); COCKROFT - GAULT 57.66; GLUCOSE,RANDOM 133 mg/dL (74-106); SGOT/AST 23 U/L (15-37); SGPT/ALT 17 U/L (12-78)
[2016-10-16 07:07] LABS: ALK PHOS 52 U/L (45-117); BILIRUBIN,TOTAL 0.8 mg/dL (0.2-1.0); TOT PROT 5.2 g/dl (6.4-8.2)
--- NOTE | 2016-10-16 07:10 | PN ---
Physical Exam: SUBJECTIVE: Patient seen and examined at bed side. Gap closed, d/c dripp started lantus and ISS. lactic acid, troponins trended down. patient sedated and intubated failed weening trial. OBJECTIVE: Vital Signs Period Temp Pulse Resp BP Sys/Machado Pulse Ox Last 24 Hr 98 F-101.7 F 91-126 16-28 101-140/62-93 97-97 GENERAL: intubated and sedated. in no acute distress HEAD: Normal with no signs of trauma. EYES: pin point pupils, no sclera anicteric, conjunctiva clear. EARS, NOSE, THROAT: Ears normal, nares patent, oropharynx clear without exudates. Moist mucous membranes. ET tube inplace. NECK: Normal range of motion, supple without lymphadenopathy, JVD, or masses. LUNGS: distant breath sounds, + crackles, No wheezes, and no crackles. No accessory muscle use. HEART: distant heart sounds no murmurs appreciated. ABDOMEN: Soft, nontender, not distended, normoactive bowel sounds, no guarding, no rebound, no masses. MUSCULOSKELETAL: Normal range of motion at all joints. No bony deformities or tenderness. No CVA tenderness. LOWER EXTREMITIES: 2+ pulses, warm, well-perfused. No calf tenderness. No peripheral edema. PSYCHIATRIC: intubated sedated SKIN: Warm, dry, normal turgor, no rashes or lesions noted. Laboratory Results - last 24 hr 10/15/16 10/15/16 10/15/16 12:04 15:15 15:15 WBC RBC Hgb Hct MCV MCHC RDW Plt Count MPV Neutrophils % Lymphocytes % Monocytes % Eosinophils % Basophils % PTT (Actin FS) Sodium 149 H Potassium 4.2 Chloride 114 H Carbon Dioxide 18 L Anion Gap 17 H BUN 30 H Creatinine 1.2 D POC Glucometer Random Glucose 386 H* Lactic Acid Calcium 7.8 L Creatine Kinase 78 Troponin I 2.16 H* D Random Vancomycin Blood Type O POSITIVE Antibody Screen Negative 10/15/16 10/15/16 10/15/16 15:15 18:00 19:06 WBC RBC Hgb Hct MCV MCHC RDW Plt Count MPV Neutrophils % Lymphocytes % Monocytes % Eosinophils % Basophils % PTT (Actin FS) Sodium Potassium Chloride Carbon Dioxide Anion Gap BUN Creatinine POC Glucometer > 400 Random Glucose Lactic Acid 3.521 H* 3.141 H* Calcium Creatine Kinase Troponin I Random Vancomycin Blood Type Antibody Screen 10/15/16 10/15/16 10/15/16 20:20 20:20 20:35 WBC RBC Hgb Hct MCV MCHC RDW Plt Count MPV Neutrophils % Lymphocytes % Monocytes % Eosinophils % Basophils % PTT (Actin FS) 43.9 H Sodium Potassium Chloride Carbon Dioxide Anion Gap BUN Creatinine POC Glucometer [phone] Random Glucose Lactic Acid 3.160 H* Calcium Creatine Kinase Troponin I Random Vancomycin Blood Type Antibody Screen 10/15/16 10/15/16 10/16/16 20:50 23:58 01:40 WBC RBC Hgb Hct MCV MCHC RDW Plt Count MPV Neutrophils % Lymphocytes % Monocytes % Eosinophils % Basophils % PTT (Actin FS) Sodium Potassium Chloride Carbon Dioxide Anion Gap BUN Creatinine POC Glucometer [phone] Random Glucose Lactic Acid Calcium Creatine Kinase Troponin I 1.62 H* Random Vancomycin Blood Type Antibody Screen 10/16/16 10/16/16 10/16/16 02:30 02:40 03:02 WBC RBC Hgb Hct MCV MCHC RDW Plt Count MPV Neutrophils % Lymphocytes % Monocytes % Eosinophils % Basophils % PTT (Actin FS) 64.9 H D Sodium Potassium Chloride Carbon Dioxide Anion Gap BUN Creatinine POC Glucometer [phone] Random Glucose Lactic Acid 2.358 H* Calcium Creatine Kinase Troponin I Random Vancomycin Blood Type Antibody Screen 10/16/16 10/16/16 10/16/16 04:31 05:20 05:20 WBC 15.4 H RBC 4.66 D Hgb 12.7 D Hct 39.6 D MCV 85.1 MCHC 32.0 RDW 14.6 Plt Count 299 D MPV 9.1 Neutrophils % 94.5 H Lymphocytes % 2.1 L D Monocytes % 2.5 L Eosinophils % 0.0 D Basophils % 0.9 PTT (Actin FS) Sodium Potassium Chloride Carbon Dioxide Anion Gap BUN Creatinine POC Glucometer [phone] Random Glucose Lactic Acid Calcium Creatine Kinase Troponin I Random Vancomycin 3.851 Blood Type Antibody Screen Active Medications Generic Name Dose Route Start Last Admin Trade Name Freq PRN Reason Stop Dose Admin Acetaminophen 650 mg 10/15/16 16:23 10/15/16 18:22 Tylenol Suppository - ND 650 mg Q6H PRN Administration FEVER OR PAIN Aspirin 300 mg 10/16/16 10:00 Asa - RC DAILY [facility] Chlorhexidine Gluconate 1 applic 10/15/16 22:00 10/15/16 22:15 Hibiclens For Decolonization - TP 1 applic HS [facility] Administration Heparin Sodium (Porcine) 1,000 unit 10/15/16 12:20 10/15/16 23:41 Heparin - IVPUSH 1,000 unit PRN PRN Administration Heparin Heparin Sodium (Porcine) 5,000 unit 10/15/16 12:20 Heparin - IVPUSH PRN PRN Heparin Sodium Chloride 1,000 mls @ 100 mls/hr 10/15/16 11:30 10/15/16 12:10 Normal Saline - IV Not Given ASDIR KARLOS Sodium Chloride 1,000 mls @ 200 mls/hr 10/15/16 12:00 10/15/16 12:10 Normal Saline - IV 200 mls/hr ASDIR KARLOS Administration Heparin Sodium (Porcine) 25, 500 mls @ 16 mls/hr 10/15/16 12:30 10/15/16 23:42 000 unit/ Sodium Chloride IV 1,000 unit/hr TITR [facility] Titration Protocol 800 UNIT/HR Pantoprazole Sodium 100 mls @ 200 mls/hr 10/15/16 15:15 10/15/16 15:45 Protonix 40mg Ivpb (Pre-Docked) IVPB 200 mls/hr DAILY [facility] Administration Cefepime HCl 0.5 gm/ Dextrose 100 mls @ 200 mls/hr 10/15/16 16:30 10/15/16 22: 05 IVPB 200 mls/hr BID [facility] Administration Propofol 100 mls @ 2.353 mls/hr 10/15/16 16:00 10/15/16 17:47 Diprivan - IVPB 2.353 mls/hr TITR K[facility]OS Administration Protocol 5 MCG/KG/MIN Insulin Human Regular 100 100 mls @ 7.84 mls/hr 10/15/16 16:30 10/16/16 00:04 units/ Sodium Chloride IVPB 0.04 units/kg/hr TITR K[facility]OS Titration Protocol 0.1 UNITS/KG/HR Potassium Chloride 10 meq/ 1,005 mls @ 200 mls/hr 10/15/16 16:30 10/16/16 02:53 Sodium Chloride IVPB 200 mls/hr Q5H [facility] Administration Metoprolol Tartrate 2.5 mg 10/15/16 12:30 10/16/16 02:52 Lopressor Injection - IVPUSH 2.5 mg Q8H-IV [facility] Administration Mupirocin 1 applic 10/15/16 22:00 10/15/16 22:13 Bactroban Ointment (For Decolonization) - NS 10/20/16 21:59 1 applic BID [facility] Administration Sodium Chloride 900 ml 10/15/16 08:58 10/15/16 10:12 Normal Saline - IV 900 ml Q20M PRN Administration MAP<65mm Hg OR SBP <90 Microbiology 10/15/16 21:00 Urine For Antigen Detection Legionella Antigen - Final 10/15/16 21:00 Urine For Antigen Detection Streptococcus pneumoniae Antigen (M - Final 10/15/16 09:30 Urine - Urine - Catheterized Urine Culture - Final 10/15/16 09:22 Blood - Peripheral Venous Blood Culture - Preliminary NO GROWTH OBTAINED AFTER 24 HOURS, INCUBATION TO CONTINUE FOR 4 DAYS. 10/15/16 09:10 Blood - Peripheral Venous Blood Culture - Preliminary NO GROWTH OBTAINED AFTER 24 HOURS, INCUBATION TO CONTINUE FOR 4 DAYS. 10/15/16 10:45 Nasopharyngeal Swab Respiratory Virus Panel - Preliminary 10/15/16 10:45 Nasopharyngeal Swab Influenza Types A,B Antigen ([facility]GETTE) - Final 10/15/16 10:45 Nasopharyngeal Swab - Final Laboratory Tests 10/16/16 05:20 Random Vancomycin 3.851 ASSESSMENT/PLAN: Patient is a 86 year old male from [facility] with PMH of HTN, HLD, CAD s/p bare metal stent, afib, L atrial lipoma, latent TB, Alzheimer's dementia and DM who was recently discharged for Influenza A and treated with Tamiflu 10/11/16 who presents to the ER via EMS for worsening dypsnea and confusion. Sever sepsis 2/2 HCAP, wbc trending down sepis protocol in place trend lactic acid -trending down IVF ID consult. PCN allergy noted and levaquin + vanc given in ER f/u cultures -increased cefepime dose Acute hypoxic respiratory failure Cultures pending CXR read with b/l lower lobe infiltrate, PNA vs pulmonary edema Patient currently mechanically ventilated Taper FI O2, keep O2 >90% ABG in AM Light sedation AM to assist mental status DKA, suger <200 closed, gap closed, switched to Basel insulin and cover with ISS, replete K if <3.3 when glucose <200, change to D5NS Elevated Troponins, trending down ASA given trend troponins, echo shows EF of 29.6%, left ventricular systolic function severely reduced. Left atrium borderline dilated. RV mildly dilated. RV size moderately reduced. None acute wall VA stemi Dementia is relative contraindication to thrombolysis As per cardiac, will continue heparin ggt cont metoprolol 2.5 and will watch for hypotension cont statin, beta blockers, and plavix once NGT in place JULIET,improving prerenal azotemia 2/2 sepsis monitor urine output and creatinine decreased IVF Dementia as per medical records, baseline verbal and AOx1 currently cannot assess, sedated and intubated HTN as per cardiac, Lopressor given if BP <120/80, hold antihypertensives hypernatremea d51/2 NS FEN NPO IVNS with KCL replete electrolytes as needed. DVT prophylaxis on heparin ggt GI prophylaxis - protonix Dispo: We will continue to follow the patient. Thank you for this consultative opportunity. Visit type - Emergency Visit Emergency Visit: Yes ED Registration Date: 10/15/16 Care time: The patient presented to the Emergency Department on the above date and was hospitalized for further evaluation of their emergent condition. - New Patient This patient is new to me today: No - Critical Care Critical Care patient: Yes Total Critical Care Time (in minutes): 43 Critical Care Statement: The care of this patient involved high complexity decision making to prevent further life threatening deterioration of the patient 's condition and/or to evalute & treat vital organ system(s) failure or risk of failure.
[2016-10-16] MEDS ORDERED: PT OWN MED DRAWER 7, Y5N ONE (08:48)
--- NOTE | 2016-10-16 09:55 | PN ---
Progress Note, Physician Chief Complaint: Intubated in ICU events noted Sedated on Vent - Current Medication List Current Medications: Active Medications Acetaminophen (Tylenol Suppository -) 650 mg WA Q6H PRN PRN Reason: FEVER OR PAIN Last Admin: 10/15/16 18:22 Dose: 650 mg Aspirin (Asa -) 300 mg RC DAILY [facility] Chlorhexidine Gluconate (Hibiclens For Decolonization -) 1 applic TP HS KARLOS Last Admin: 10/15/16 22:15 Dose: 1 applic Heparin Sodium (Porcine) (Heparin -) 1,000 unit IVPUSH PRN PRN PRN Reason: Heparin Last Admin: 10/15/16 23:41 Dose: 1,000 unit Heparin Sodium (Porcine) (Heparin -) 5,000 unit IVPUSH PRN PRN PRN Reason: Heparin Sodium Chloride (Normal Saline -) 1,000 mls @ 100 mls/hr IV ASDIR KARLOS Last Admin: 10/15/16 12:10 Dose: Not Given Sodium Chloride (Normal Saline -) 1,000 mls @ 200 mls/hr IV ASDIR KARLOS Last Admin: 10/15/16 12:10 Dose: 200 mls/hr Heparin Sodium (Porcine) 25, (000 unit/ Sodium Chloride) 500 mls @ 16 mls/hr IV TITR KARLOS; 800 UNIT/HR PRN Reason: Protocol Last Titration: 10/15/16 23:42 Dose: 1,000 unit/hr Pantoprazole Sodium (Protonix 40mg Ivpb (Pre-Docked)) 100 mls @ 200 mls/hr IVPB DAILY [facility] Last Admin: 10/15/16 15:45 Dose: 200 mls/hr Cefepime HCl 0.5 gm/ Dextrose 100 mls @ 200 mls/hr IVPB BID [facility] Last Admin: 10/15/16 22:05 Dose: 200 mls/hr Propofol (Diprivan -) 100 mls @ 2.353 mls/hr IVPB TITR KARLOS; 5 MCG/KG/MIN PRN Reason: Protocol Last Admin: 10/15/16 17:47 Dose: 2.353 mls/hr Potassium Chloride 10 meq/ (Sodium Chloride) 1,005 mls @ 200 mls/hr IVPB Q5H [facility] Last Admin: 10/16/16 02:53 Dose: 200 mls/hr Insulin Aspart (Novolog Vial) 0 units SQ ACHS KARLOS PRN Reason: Protocol Insulin Detemir (Levemir Vial) 8 units SQ BID [facility] Metoprolol Tartrate (Lopressor Injection -) 2.5 mg IVPUSH Q8H-IV [facility] Last Admin: 10/16/16 02:52 Dose: 2.5 mg Mupirocin (Bactroban Ointment (For Decolonization) -) 1 applic NS BID [facility] Stop: 10/20/16 21:59 Last Admin: 10/15/16 22:13 Dose: 1 applic Sodium Chloride (Normal Saline -) 900 ml IV Q20M PRN PRN Reason: MAP<65mm Hg OR SBP <90 Last Admin: 10/15/16 10:12 Dose: 900 ml - Objective Vital Signs: Vital Signs Temperature 99.1 F 10/16/16 06:00 Pulse Rate 91 H 10/16/16 06:00 Respiratory Rate 22 10/16/16 06:00 Blood Pressure 115/74 10/16/16 06:00 O2 Sat by Pulse Oximetry (%) 97 10/15/16 21:00 Constitutional: Yes: Other (sedated) HENT: Yes: Other (intubated) Cardiovascular: Yes: Regular Rate and Rhythm Respiratory: Yes: Diminished Gastrointestinal: Yes: Normal Bowel Sounds, Soft. No: Distention Edema: No Labs: CBC, BMP 10/16/16 05:20 10/16/16 05:20 INR, PTT INR 1.24 (0.82-1.09) H 10/15/16 09:16 Problem List - Problems (1) Acute respiratory failure with hypoxia Code(s): J96.01 - ACUTE RESPIRATORY FAILURE WITH HYPOXIA (2) Sepsis Code(s): A41.9 - SEPSIS, UNSPECIFIED ORGANISM Qualifiers: Sepsis type: sepsis due to unspecified organism Qualified Code(s): A41.9 - Sepsis, unspecified organism (3) Alzheimer disease Code(s): G30.9 - ALZHEIMER'S DISEASE, UNSPECIFIED Qualifiers: Alzheimer's disease onset: early-onset Dementia behavioral disturbance : without behavioral disturbance Qualified Code(s): G30.0 - Alzheimer's disease with early onset; F02.81 - Dementia in other diseases classified elsewhere with behavioral disturbance (4) Healthcare-associated pneumonia Code(s): J18.9 - PNEUMONIA, UNSPECIFIED ORGANISM Assessment/Plan PLAN Vent management per ICU IV antibiotics nebs DVT prophylaxis- Heparin infusion- for NSTEMi- due to sepsis Weaning per ICU
[2016-10-16] MEDS ORDERED: ENOXAPARIN NA (PORCINE) 40 MG/0.4 ML DISP.SYRIN SQ SCH (10:00)
--- NOTE | 2016-10-16 10:15 | PN ---
Progress Note (short form) - Note Progress Note: respiratory failure intubated Vital Signs Period Temp Pulse Resp BP Sys/M[place]ado Pulse Ox Last 24 Hr 98 F-101.7 F 91-126 16-28 101-140/62-93 97-97 cor- rrr lungs decreased bs at bases abd soft,nt ext no edema CBC, BMP 10/16/16 05:20 10/16/16 05:20 Microbiology 10/15/16 09:30 Urine - Urine - Catheterized Urine Culture - Final 10/15/16 09:22 Blood - Peripheral Venous Blood Culture - Preliminary NO GROWTH OBTAINED AFTER 24 HOURS, INCUBATION TO CONTINUE FOR 4 DAYS. 10/15/16 09:10 Blood - Peripheral Venous Blood Culture - Preliminary NO GROWTH OBTAINED AFTER 24 HOURS, INCUBATION TO CONTINUE FOR 4 DAYS. 10/15/16 10:45 Nasopharyngeal Swab Respiratory Virus Panel - Preliminary 10/15/16 10:45 Nasopharyngeal Swab Influenza Types A,B Antigen (BRIDGETTE) - Final 10/15/16 10:45 Nasopharyngeal Swab - Final Current Medications Acetaminophen (Tylenol Suppository -) 650 mg LA Q6H PRN PRN Reason: FEVER OR PAIN Last Admin: 10/15/16 18:22 Dose: 650 mg Aspirin (Asa -) 300 mg RC DAILY [facility] Chlorhexidine Gluconate (Hibiclens For Decolonization -) 1 applic TP HS KARLOS Last Admin: 10/15/16 22:15 Dose: 1 applic Heparin Sodium (Porcine) (Heparin -) 1,000 unit IVPUSH PRN PRN PRN Reason: Heparin Last Admin: 10/15/16 23:41 Dose: 1,000 unit Heparin Sodium (Porcine) (Heparin -) 5,000 unit IVPUSH PRN PRN PRN Reason: Heparin Sodium Chloride (Normal Saline -) 1,000 mls @ 100 mls/hr IV ASDIR KARLOS Last Admin: 10/15/16 12:10 Dose: Not Given Sodium Chloride (Normal Saline -) 1,000 mls @ 200 mls/hr IV ASDIR KARLOS Last Admin: 10/15/16 12:10 Dose: 200 mls/hr Heparin Sodium (Porcine) 25, (000 unit/ Sodium Chloride) 500 mls @ 16 mls/hr IV TITR [facility]ARLOS; 800 UNIT/HR PRN Reason: Protocol Last Titration: 10/15/16 23:42 Dose: 1,000 unit/hr Pantoprazole Sodium (Protonix 40mg Ivpb (Pre-Docked)) 100 mls @ 200 mls/hr IVPB DAILY [facility] Last Admin: 10/15/16 15:45 Dose: 200 mls/hr Cefepime HCl 0.5 gm/ Dextrose 100 mls @ 200 mls/hr IVPB BID [facility] Last Admin: 10/15/16 22:05 Dose: 200 mls/hr Propofol (Diprivan -) 100 mls @ 2.353 mls/hr IVPB TITR KARLOS; 5 MCG/KG/MIN PRN Reason: Protocol Last Admin: 10/15/16 17:47 Dose: 2.353 mls/hr Potassium Chloride 10 meq/ (Sodium Chloride) 1,005 mls @ 200 mls/hr IVPB Q5H [facility] Last Admin: 10/16/16 02:53 Dose: 200 mls/hr Insulin Aspart (Novolog Vial) 0 units SQ ACHS KAR[facility]OS PRN Reason: Protocol Insulin Detemir (Levemir Vial) 8 units SQ BID [facility] Metoprolol Tartrate (Lopressor Injection -) 2.5 mg IVPUSH Q8H-IV [facility] Last Admin: 10/16/16 02:52 Dose: 2.5 mg Mupirocin (Bactroban Ointment (For Decolonization) -) 1 applic NS BID [facility] Stop: 10/20/16 21:59 Last Admin: 10/15/16 22:13 Dose: 1 applic Sodium Chloride (Normal Saline -) 900 ml IV Q20M PRN PRN Reason: MAP<65mm Hg OR SBP <90 Last Admin: 10/15/16 10:12 Dose: 900 ml cxray unchanged a/p respiratory failure pneumonia ?HCAP recent influenza renal insufficiency resolved increased cefepime dose f/u cultures
[2016-10-16] MEDS: INSULIN DETEMIR 100 UNITS/ML MDV SQ SCH ×2 (10:22→11:00)
[2016-10-16] MEDS: PANTOPRAZOLE SODIUM 100 ML IVPB SCH (10:22)
[2016-10-16] MEDS: CEFEPIME 0.5 GM in DEXTROSE 5%-WATER - 100 ML IVPB SCH (10:26)
[2016-10-16] MEDS ORDERED: CEFEPIME HCL 1 GM VIAL (RESTRICTED TO ID) IVPB SCH (10:30)
[2016-10-16] MEDS: MUPIROCIN 2% TOPICAL OINTMENT FOR DECOLONIZATION NS SCH ×2 (10:30→21:23)
[2016-10-16] MEDS: CEFEPIME 1 GM in DEXTROSE 5%-WATER - 100 ML IVPB SCH ×2 (12:11→21:23)
[2016-10-16] MEDS ORDERED: INSULIN SLIDING SCALE (NOVOLOG) 1 VIAL SQ SCH (12:30)
[2016-10-16 12:34] LABS: ARTERIAL BLD GAS O2 SATURATION 94.9 % (90-98.9); ARTERIAL BLOOD GAS BASE EXCESS -7.4 meq/l (-2-2); ARTERIAL BLOOD GAS HCO3 16.8 meq/L (22-26); ARTERIAL BLOOD GAS PO2 77.4 mmHg (68-100)
[2016-10-16 12:35] LABS: ALLENS TEST POSITIVE; ART PUNCT SITE RIGHT RADIAL; LPM/O2% 40%; MECH. VENT. ESPRIT; PT. ON O2? YES; TYPE OF O2 MEC.VENT; VENT RATE 12; VT/PRESS 500
[2016-10-16 12:36] LABS: ARTERIAL BLOOD GAS pH 7.34 (7.35-7.45)
--- NOTE | 2016-10-16 12:43 | PN ---
Teaching Attending Note Name of Resident: Madeline Mayo ATTENDING PHYSICIAN STATEMENT I saw and evaluated the patient. I reviewed the resident's note and discussed the case with the resident. I agree with the resident's findings and plan as documented. SUBJECTIVE: Pt seen and examined in the ICU. Remains intubated, sedated but arousable. Placed on CPAP/PS but pt became tachypneic with accessory muscle use. OBJECTIVE: Last Vital Signs Temp Pulse Resp BP Pulse Ox 99.2 F 95 H 23 117/78 97 10/16/16 10:46 10/16/16 10:46 10/16/16 11:30 10/16/16 10:46 10/15/16 21:00 Intake & Output 10/13/16 10/14/16 10/15/16 10/16/16 23:59 23:59 23:59 23:59 Intake Total 4819.0 2785.6 Output Total 880 200 Balance 3939.0 2585.6 Weight 172 lb 14.4 oz 169 lb 8 oz Gen: intubated, sedated Heart: RRR Lung: decreased breath sounds at the bases Abd: soft, nontender Ext: trace edema CBC, BMP 10/16/16 05:20 10/16/16 05:20 Troponin, BNP 10/15/16 10/15/16 15:15 20:50 Troponin I 2.16 H* D 1.62 H* Active Medications Acetaminophen (Tylenol Suppository -) 650 mg OR Q6H PRN PRN Reason: FEVER OR PAIN Last Admin: 10/15/16 18:22 Dose: 650 mg Aspirin (Asa -) 300 mg RC DAILY [facility] Chlorhexidine Gluconate (Hibiclens For Decolonization -) 1 applic TP HS KARLOS Last Admin: 10/15/16 22:15 Dose: 1 applic Heparin Sodium (Porcine) (Heparin -) 1,000 unit IVPUSH PRN PRN PRN Reason: Heparin Last Admin: 10/15/16 23:41 Dose: 1,000 unit Heparin Sodium (Porcine) (Heparin -) 5,000 unit IVPUSH PRN PRN PRN Reason: Heparin Heparin Sodium (Porcine) 25, (000 unit/ Sodium Chloride) 500 mls @ 16 mls/hr IV TITR [facility]ARLOS; 800 UNIT/HR PRN Reason: Protocol Last Titration: 10/15/16 23:42 Dose: 1,000 unit/hr Pantoprazole Sodium (Protonix 40mg Ivpb (Pre-Docked)) 100 mls @ 200 mls/hr IVPB DAILY [facility] Last Admin: 10/16/16 10:22 Dose: 200 mls/hr Propofol (Diprivan -) 100 mls @ 2.353 mls/hr IVPB TITR KARLOS; 5 MCG/KG/MIN PRN Reason: Protocol Last Admin: 10/15/16 17:47 Dose: 2.353 mls/hr Potassium Chloride 10 meq/ (Sodium Chloride) 1,005 mls @ 200 mls/hr IVPB Q5H [facility] Last Admin: 10/16/16 02:53 Dose: 200 mls/hr Cefepime HCl 1 gm/ Dextrose 100 mls @ 200 mls/hr IVPB BID [facility] Insulin Aspart (Novolog Vial Sliding Scale -) 1 vial SQ ACHS KARLOS PRN Reason: Protocol Insulin Detemir (Levemir Vial) 8 units SQ BID [facility] Last Admin: 10/16/16 10:22 Dose: 8 units Metoprolol Tartrate (Lopressor Injection -) 2.5 mg IVPUSH Q8H-IV [facility] Last Admin: 10/16/16 10:28 Dose: 2.5 mg Mupirocin (Bactroban Ointment (For Decolonization) -) 1 applic NS BID [facility] Stop: 10/20/16 21:59 Last Admin: 10/16/16 10:30 Dose: 1 applic Sodium Chloride (Normal Saline -) 900 ml IV Q20M PRN PRN Reason: MAP<65mm Hg OR SBP <90 Last Admin: 10/15/16 10:12 Dose: 900 ml ASSESSMENT AND PLAN: Acute Hypoxic Respiratory Failure Pneumonia Recent Influenza Severe Sepsis Acute Kidney Injury Lactic Acidosis +Troponins - ?Demand Ischemia from Sepsis LV Systolic Heart Failure HTN CAD DM Dementia - continue antibiotics - f/u cultures - d/c IVF - free water via OGT - monitor urine output, creatinine - may need lasix if remains hemodynamically stable - ASA, beta regina if BP tolerates - anticoagulation per cardiology - taper Fio2 to keep Spo2 >90% - recheck ABG - lighten sedation in AM to assess mental status - start spontaneous breathing trials as tolerated when mental status improves - DVT/GI prophylaxis - ICU monitoring critical care time spent in reviewing chart, evaluating patient and formulating plan 40 min
[2016-10-16] MEDS: ASPIRIN 300 MG SUPP.RECT RC SCH (12:53)
--- NOTE | 2016-10-16 13:19 | EKG ---
Test Reason : Blood Pressure : / mmHG Vent. 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
--- NOTE | 2016-10-16 16:03 | PN ---
Progress Note (short form) - Note Progress Note: s: intubated, sedated, no overnight events o: Vital Signs Temp 97.5 F L 10/16/16 15:27 Pulse 124 H 10/16/16 15:27 Resp 23 10/16/16 15:27 BP 147/104 10/16/16 15:27 Pulse Ox 97 10/15/16 21:00 Intake & Output 10/15/16 10/16/16 10/16/16 23:59 11:59 23:59 Intake Total 469.0 2785.6 Output Total 850 200 200 Balance -381.0 2585.6 -200 Weight 172 lb 14.4 oz 169 lb 8 oz Intake: IV 269.0 2635.6 Normal Saline - 1,000 ml 200 2400 @ 200 mls/hr IV ASDIR KARLOS Rx#:[id number] Heparin - 25,000 Unit In 54 208 Normal Saline - 495 ml @ 800 UNIT/HR 16 mls/hr IV TITR [facility] Rx#:[id number] Diprivan - 100 ml @ 5 MCG 7.5 27.6 /KG/MIN 2.353 mls/hr IVPB TITR [facility] Rx#:[id number] NOVOLIN R VIAL *For 7.5 IVPUSH or IV DRIP Only* 100 UNITS In Normal Saline - 99 ml @ 0.1 UNITS/KG/HR 7.84 mls/hr IVPB TITR [facility] Rx#: [id number] IVPB 200 150 Output: Urine 850 200 200 [place] 850 200 200 Other: Voiding Method Indwelling Catheter Indwelling Catheter Indwelling Catheter Bowel Movement No Yes Height 6 ft 2 in Body Mass Index (BMI) 22.1 Weight Measurement Method Built in [facility] Built in [facility] intubated, sedated rrr s1s2 no mrg coarse bs anteriorly, vented no jvd pos dp pt no jaundice diaphoresis no le e/c/c abd nd pos bs Current Medications Generic Name Dose Route Start Last Admin Trade Name Freq PRN Reason Stop Dose Admin Acetaminophen 650 mg 10/15/16 16:23 10/15/16 18:22 Tylenol Suppository - DC 650 mg Q6H PRN Administration FEVER OR PAIN Aspirin 300 mg 10/16/16 10:00 10/16/16 12:53 Asa - RC 300 mg DAILY [facility] Administration Chlorhexidine Gluconate 1 applic 10/15/16 22:00 10/15/16 22:15 Hibiclens For Decolonization - TP 1 applic HS KARLOS Administration Heparin Sodium (Porcine) 1,000 unit 10/15/16 12:20 10/15/16 23:41 Heparin - IVPUSH 1,000 unit PRN PRN Administration Heparin Heparin Sodium (Porcine) 5,000 unit 10/15/16 12:20 Heparin - IVPUSH PRN PRN Heparin Heparin Sodium (Porcine) 25, 500 mls @ 16 mls/hr 10/15/16 12:30 10/15/16 23:42 000 unit/ Sodium Chloride IV 1,000 unit/hr TITR [facility]OS Titration Protocol 800 UNIT/HR Pantoprazole Sodium 100 mls @ 200 mls/hr 10/15/16 15:15 10/16/16 10:22 Protonix 40mg Ivpb (Pre-Docked) IVPB 200 mls/hr DAILY [facility] Administration Propofol 100 mls @ 2.353 mls/hr 10/15/16 16:00 10/15/16 17:47 Diprivan - IVPB 2.353 mls/hr TITR [facility] Administration Protocol 5 MCG/KG/MIN Potassium Chloride 10 meq/ 1,005 mls @ 200 mls/hr 10/15/16 16:30 10/16/16 02:53 Sodium Chloride IVPB 200 mls/hr Q5H [facility] Administration Cefepime HCl 1 gm/ Dextrose 100 mls @ 200 mls/hr 10/16/16 12:00 10/16/16 12:11 IVPB 200 mls/hr BID [facility] Administration Insulin Aspart 1 vial 10/16/16 12:30 10/16/16 12:54 Novolog Vial Sliding Scale - SQ 2 units ACHS KAR[facility]OS Administration Protocol Insulin Detemir 8 units 10/16/16 10:00 10/16/16 10:22 Levemir Vial SQ 8 units BID [facility] Administration Metoprolol Tartrate 2.5 mg 10/15/16 12:30 10/16/16 10:28 Lopressor Injection - IVPUSH 2.5 mg Q8H-IV [facility] Administration Mupirocin 1 applic 10/15/16 22:00 10/16/16 10:30 Bactroban Ointment (For Decolonization) - NS 10/20/16 21:59 1 applic BID [facility] Administration Sodium Chloride 900 ml 10/15/16 08:58 10/15/16 10:12 Normal Saline - IV 900 ml Q20M PRN Administration MAP<65mm Hg OR SBP <90 Laboratory Last Values WBC 15.4 K/mm3 (4.0-10.0) H 10/16/16 05:20 RBC 4.66 M/mm3 (4.00-5.60) D 10/16/16 05:20 Hgb 12.7 GM/dL (11.7-16.9) D 10/16/16 05:20 Hct 39.6 % (35.4-49) D 10/16/16 05:20 MCV 85.1 fl (80-96) 10/16/16 05:20 MCHC 32.0 g/dl (32.0-35.9) 10/16/16 05:20 RDW 14.6 % (11.9-15.9) 10/16/16 05:20 Plt Count 299 K/MM3 (134-434) D 10/16/16 05:20 MPV 9.1 fl (7.5-11.1) 10/16/16 05:20 Neutrophils % 94.5 % (42.8-82.8) H 10/16/16 05:20 Lymphocytes % 2.1 % (8-40) L D 10/16/16 05:20 Monocytes % 2.5 % (3.8-10.2) L 10/16/16 05:20 Eosinophils % 0.0 % (0-4.5) D 10/16/16 05:20 Basophils % 0.9 % (0-2.0) 10/16/16 05:20 Band Neutrophils 6.0 % (0-10) 10/15/16 09:16 Differential Comment Manual diff done 10/15/16 09:16 Reactive Lymphocytes 3 % (0-80) 10/15/16 09:16 Poly Cells 2+ 10/15/16 09:16 Morphology Comment Slide scanned 10/15/16 09:16 INR 1.24 (0.82-1.09) H 10/15/16 09:16 PTT (Actin FS) 64.9 SECONDS (26.9-34.4) H D 10/16/16 02:40 Puncture Site Right radial 10/16/16 12:25 ABG pH 7.34 (7.35-7.45) L D 10/16/16 12:25 ABG pCO2 at Pt Temp 32.0 mmHg (35-45) L D 10/16/16 12:25 ABG pO2 at Pt Temp 77.4 mmHg (68-100) D 10/16/16 12:25 ABG HCO3 16.8 meq/L (22-26) L 10/16/16 12:25 ABG O2 Sat (Measured) 94.9 % (90-98.9) 10/16/16 12:25 ABG O2 Content 18.2 % vol (15-22) 10/16/16 12:25 ABG Base Excess -7.4 meq/l (-2-2) L 10/16/16 12:25 Alexandro Test Positive 10/16/16 12:25 Carboxyhemoglobin 0.5 gm% (0.5-2.0) 10/15/16 09:48 Methemoglobin 0.8 % (0.4-1.5) 10/15/16 09:48 O2 Delivery Device Mec.vent 10/16/16 12:25 Oxygen Flow Rate 40% 10/16/16 12:25 Vent Mode A/c 10/16/16 12:25 Vent Rate 12 10/16/16 12:25 Mechanical Rate Esprit 10/16/16 12:25 PEEP 5.0 cmH2O 10/16/16 12:25 Pressure Support Vent 500 10/16/16 12:25 Sodium 153 mmol/L (136-145) H 10/16/16 05:20 Potassium 4.0 mmol/L (3.5-5.1) 10/16/16 05:20 Chloride 121 mmol/L (98-107) H 10/16/16 05:20 Carbon Dioxide 22 mmol/L (21-32) D 10/16/16 05:20 Anion Gap 10 (8-16) 10/16/16 05:20 BUN 31 mg/dL (7-18) H 10/16/16 05:20 Creatinine 1.0 mg/dL (0.7-1.3) 10/16/16 05:20 Creat Clearance w eGFR > 60 (>60) 10/16/16 05:20 POC Glucometer 199.86699 UNITS (()) 10/16/16 11:48 Random Glucose 133 mg/dL (74-106) H D 10/16/16 05:20 Lactic Acid 2.358 mmol/L (0.4-2.0) H* 10/16/16 02:30 Calcium 7.6 mg/dL (8.5-10.1) L 10/16/16 05:20 Total Bilirubin 0.8 mg/dL (0.2-1.0) D 10/16/16 05:20 AST 23 U/L (15-37) 10/16/16 05:20 ALT 17 U/L (12-78) 10/16/16 05:20 Alkaline Phosphatase 52 U/L (45-117) D 10/16/16 05:20 Creatine Kinase 78 IU/L (39-308) 10/15/16 15:15 Troponin I 1.62 ng/ml (0.00-0.05) H* 10/15/16 20:50 Total Protein 5.2 g/dl (6.4-8.2) L D 10/16/16 05:20 Albumin 1.4 g/dl (3.4-5.0) L D 10/16/16 05:20 Urine Color Amanda 10/15/16 09:22 Urine Appearance Clear 10/15/16 09:22 Urine pH 5.0 (5.0-8.0) 10/15/16 09:22 Ur Specific [place] 1.032 (1.001-1.035) 10/15/16 09:22 Urine Protein 3+ (NEGATIVE) H 10/15/16 09:22 Urine Glucose (UA) 3+ (NEGATIVE) H 10/15/16 09:22 Urine Ketones 1+ (NEGATIVE) H 10/15/16 09:22 Urine Blood 1+ (NEGATIVE) H 10/15/16 09:22 Urine Nitrite Negative (NEGATIVE) 10/15/16 09:22 Urine Bilirubin Negative (NEGATIVE) 10/15/16 09:22 Urine Urobilinogen 2.0 e.u/dl E.U./dl (0.2-1.0) 10/15/16 09:22 Ur Leukocyte Esterase Negative (NEGATIVE) 10/15/16 09:22 Urine RBC 17 /hpf (0-3) 10/15/16 09:22 Urine WBC 5 /hpf (3-5) 10/15/16 09:22 Hyaline Casts 23 /lpf 10/15/16 09:22 Granular Casts 42 /lpf 10/15/16 09:22 Urine Mucus Few 10/15/16 09:22 Random Vancomycin 3.851 ug/ml 10/16/16 05:20 Blood Type O POSITIVE 10/15/16 12:04 Antibody Screen Negative 10/15/16 12:04 tele: sinus tach, brief atrial run, occ pvcs, nsvt (10 beats, 7 beats) cxr: bibasilar infiltrates, slight congestion echo 10/2016: sev dilated lv, sev dec lvef, rv mod dilated, mod dec rv fcn, reina , mild mr est cct 36 mins Assessment/Plan acute hypoxic resp failure: -remains intubated -b/l infiltrates on cxr -suspect PNA (hi fever, recent + flu) >> chf -cont abx per ID hi fever, sepsis -hemodynamically stable at present, without need for pressors JULIET: -initial creat 1.9, from 0.9-1.0 prior -? all sepsis related -cr now improved s/p abx, ivfs prior h/o CAD, elevated troponin: -initial trop 3.4, normal ck. Trop now trending down. -florid sepsis picture makes the elevated troponin likely due to sepsis direct myocardial injury, vs Type II AR from hypoxia/tachycardia/? transiently hypotensive in [place] -ECG with ischemic changes (TWIs anteriorly)--also could all be secondary to above -cannot definitively rule out acute AWMI based on this ecg, however not likely given changes are improving, not evolving, on serial tracings; -echo here with severe dec lvef -will cont to treat as nstemi with hep gtt, asa pr. no plavix as not taking po meds. -start statin when taking po -cont iv bb for now until able to take po -cont tele -further ischemic eval based on clinical course NSVT: -several brief runs on tele -replete lytes prn -cont bb systolic chf, likely chronic: -echo here showing biventricular failure -avoid excess ivfs -currently no sig vol overload -cont bb -when stable, taking po, will start po chf regimen including bb and kathie -further ischemic eval based on clinical course
[2016-10-16] MEDS: HEPARIN - 25,000 UNIT in SODIUM CHLORIDE 495 ML IV SCH (16:10)
[2016-10-16] MEDS: D5-1/2NS+10 MEQ KCL - 1,000 ML IV SCH (17:48)
[2016-10-16] MEDS: PROPOFOL 100 ML IVPB SCH (18:57)
[2016-10-16] MEDS: CHLORHEXIDINE GLUCONATE 4% CLEANSER FOR DECOLONIZATION TP SCH (21:23)
[2016-10-16] MEDS ORDERED: METOPROLOL TARTRATE 5 MG/5 ML VIAL ONE (22:48)
[2016-10-16] MEDS ORDERED: INSULIN (NOVOLOG) ASPART 100 UNITS/ML 10ML VIAL ONE (22:57)
[2016-10-17] MEDS: INSULIN SLIDING SCALE (NOVOLOG) 1 VIAL SQ SCH ×5 (01:23→21:39)
[2016-10-17] MEDS: INSULIN DETEMIR 100 UNITS/ML MDV SQ SCH ×3 (01:23→21:53)
[2016-10-17] MEDS: METOPROLOL TARTRATE 5 MG/5 ML VIAL IVPUSH SCH ×3 (01:57→19:36)
[2016-10-17 06:39] LABS: MCH 27.4 pg (25.7-33.7); MCHC 32.5 g/dl (32.0-35.9); MEAN CELL VOLUME 84.2 fl (80-96); MEAN PLT VOLUME 9.3 fl (7.5-11.1); PLATELET COUNT 382 K/MM3 (134-434); RDW 14.5 % (11.9-15.9); WHITE BLOOD COUNT 20.9 K/mm3 (4.0-10.0)
--- NOTE | 2016-10-17 07:01 | PN ---
Physical Exam: SUBJECTIVE: Patient seen and examined at bed side in no acute distress. febrile, T100.4 overnight, urine output 650cc/12hrs on free water input 300. PiO2 decresed from 60% to 40%. weening trial failed today. added falgyl in light of possible aspirant due to his Alzheimers. sakina started starting tube feeds and free water, d/c IVF OBJECTIVE: Vital Signs Period Temp Pulse Resp BP Sys/Machado Pulse Ox Last 24 Hr 97.1 F-100.4 F 91-124 20-27 117-147/78-104 97 GENERAL: intubated and sedated. in no acute distress HEAD: Normal with no signs of trauma. EYES: pin point pupils, no sclera anicteric, conjunctiva clear. EARS, NOSE, THROAT: Ears normal, nares patent, oropharynx clear without exudates. Moist mucous membranes. ET tube inplace. NECK: Normal range of motion, supple without lymphadenopathy, JVD, or masses. LUNGS: distant breath sounds, + crackles, No wheezes, and no crackles. No accessory muscle use. HEART: distant heart sounds no murmurs appreciated. ABDOMEN: Soft, nontender, not distended, normoactive bowel sounds, no guarding, no rebound, no masses. MUSCULOSKELETAL: Normal range of motion at all joints. No bony deformities or tenderness. No CVA tenderness. LOWER EXTREMITIES: 2+ pulses, warm, well-perfused. No calf tenderness. No peripheral edema. PSYCHIATRIC: intubated sedated SKIN: Warm, dry, normal turgor, no rashes or lesions noted. Laboratory Results - last 24 hr 10/15/16 10/16/16 10/16/16 15:28 05:20 05:20 Puncture Site ABG pH ABG pCO2 at Pt Temp ABG pO2 at Pt Temp ABG HCO3 ABG O2 Sat (Measured) ABG O2 Content ABG Base Excess Alexandro Test O2 Delivery Device Oxygen Flow Rate Vent Mode Vent Rate Mechanical Rate PEEP Pressure Support Vent Sodium 153 H Potassium 4.0 Chloride 121 H Carbon Dioxide 22 D Anion Gap 10 BUN 31 H Creatinine 1.0 Creat Clearance w eGFR > 60 POC Glucometer > 400 Random Glucose 133 H D Calcium 7.6 L Total Bilirubin 0.8 D AST 23 ALT 17 Alkaline Phosphatase 52 D Troponin I Total Protein 5.2 L D Albumin 1.4 L D Random Vancomycin 3.851 10/16/16 10/16/16 10/16/16 06:46 08:19 11:48 Puncture Site ABG pH ABG pCO2 at Pt Temp ABG pO2 at Pt Temp ABG HCO3 ABG O2 Sat (Measured) ABG O2 Content ABG Base Excess Alexandro Test O2 Delivery Device Oxygen Flow Rate Vent Mode Vent Rate Mechanical Rate PEEP Pressure Support Vent Sodium Potassium Chloride Carbon Dioxide Anion Gap BUN Creatinine Creat Clearance w eGFR POC Glucometer 182.62135 140.65252 199.59448 Random Glucose Calcium Total Bilirubin AST ALT Alkaline Phosphatase Troponin I Total Protein Albumin Random Vancomycin 10/16/16 10/16/16 10/16/16 12:25 16:19 18:00 Puncture Site Right radial ABG pH 7.34 L D ABG pCO2 at Pt Temp 32.0 L D ABG pO2 at Pt Temp 77.4 D ABG HCO3 16.8 L ABG O2 Sat (Measured) 94.9 ABG O2 Content 18.2 ABG Base Excess -7.4 L Alexandro Test Positive O2 Delivery Device Mec.vent Oxygen Flow Rate 40% Vent Mode A/c Vent Rate 12 Mechanical Rate Esprit PEEP 5.0 Pressure Support Vent 500 Sodium Potassium Chloride Carbon Dioxide Anion Gap BUN Creatinine Creat Clearance w eGFR POC Glucometer [phone] Random Glucose Calcium Total Bilirubin AST ALT Alkaline Phosphatase Troponin I 0.91 H* D Total Protein Albumin Random Vancomycin Active Medications Generic Name Dose Route Start Last Admin Trade Name Freq PRN Reason Stop Dose Admin Acetaminophen 650 mg 10/15/16 16:23 10/15/16 18:22 Tylenol Suppository - SD 650 mg Q6H PRN Administration FEVER OR PAIN Aspirin 300 mg 10/16/16 10:00 10/16/16 12:53 Asa - RC 300 mg DAILY KARLOS Administration Chlorhexidine Gluconate 1 applic 10/15/16 22:00 10/16/16 21:23 Hibiclens For Decolonization - TP 1 applic HS KARLOS Administration Heparin Sodium (Porcine) 1,000 unit 10/15/16 12:20 10/15/16 23:41 Heparin - IVPUSH 1,000 unit PRN PRN Administration Heparin Heparin Sodium (Porcine) 5,000 unit 10/15/16 12:20 Heparin - IVPUSH PRN PRN Heparin Heparin Sodium (Porcine) 25, 500 mls @ 16 mls/hr 10/15/16 12:30 10/16/16 16:10 000 unit/ Sodium Chloride IV 20 mls/hr TITR KARLOS Administration Protocol 800 UNIT/HR Pantoprazole Sodium 100 mls @ 200 mls/hr 10/15/16 15:15 10/16/16 10:22 Protonix 40mg Ivpb (Pre-Docked) IVPB 200 mls/hr DAILY KARLOS Administration Propofol 100 mls @ 2.353 mls/hr 10/15/16 16:00 10/16/16 18:57 Diprivan - IVPB 2.353 mls/hr TITR KARLOS Administration Protocol 5 MCG/KG/MIN Cefepime HCl 1 gm/ Dextrose 100 mls @ 200 mls/hr 10/16/16 12:00 10/16/16 21:23 IVPB 200 mls/hr BID KARLOS Administration Potassium Chloride/Dextrose/Sod Cl 1,000 mls @ 42 mls/hr 10/16/16 16:15 17:48 D5-1/2ns+10 Meq Kcl - IV 42 mls/hr ASDIR KARLOS Administration Insulin Aspart 1 vial 10/16/16 22:00 10/17/16 01:23 Novolog Vial Sliding Scale - SQ 4 units ACHS KAR[facility]OS Administration Protocol Insulin Detemir 8 units 10/16/16 10:00 10/17/16 01:23 Levemir Vial SQ 8 units BID KAR[facility]OS Administration Metoprolol Tartrate 2.5 mg 10/15/16 12:30 10/17/16 01:57 Lopressor Injection - IVPUSH 2.5 mg Q8H-IV KARLOS Administration Mupirocin 1 applic 10/15/16 22:00 10/16/16 21:23 Bactroban Ointment (For Decolonization) - NS 10/20/16 21:59 1 applic BID KARLOS Administration ASSESSMENT/PLAN: Patient is a 86 year old male from [facility] with PMH of HTN, HLD, CAD s/p bare metal stent, afib, L atrial lipoma, latent TB, Alzheimer's dementia and DM who was recently discharged for Influenza A and treated with Tamiflu 10/11/16 who presents to the ER via EMS for worsening dypsnea and confusion. Sever sepsis 2/2 HCAP, wbc trending up, febrile, ID consult. PCN allergy noted and levaquin + vanc given in ER f/u cultures antibiotics coverage increased added falgyl in light of possible aspirant due to his Alzheimers. vanco started contCefepime Acute hypoxic respiratory failure Cultures pending CXR read with b/l lower lobe infiltrate, PNA vs pulmonary edema vs aspiration pneumonia Patient currently mechanically ventilated - start spontaneous breathing trials as tolerated when mental status improves Taper FI O2, keep O2 >90% ABG in AM DKA resolved Elevated Troponins, trending down ASA given echo here with severe dec lvef- trend troponins, echo shows EF of 29.6%, left ventricular systolic function severely reduced. Left atrium borderline dilated. RV mildly dilated. RV size moderately reduced. None acute wall GA stemi Dementia is relative contraindication to thrombolysis As per cardiac, will continue heparin ggt: no plavix as not taking po meds. paged cardiology to assess duration of heparin gtt. cont metoprolol 2.5 and will watch for hypotension cont statin, beta blockers, and plavix once NGT in place JULIET,improving prerenal azotemia 2/2 sepsis monitor urine output and creatinine d/c IVF, free water feeds Dementia as per medical records, baseline verbal and AOx1 currently cannot assess, sedated and intubated HTN as per cardiac, Lopressor given if BP <120/80, hold antihypertensives hypernatremea d/c IVF added free water to tube feeds FEN NPO free water per NG tube replete electrolytes as needed, keep mag >2.0, replete phosphorus DVT prophylaxis on heparin ggt GI prophylaxis - protonix Dispo: We will continue to follow the patient. Thank you for this consultative opportunity. Visit type - Emergency Visit Emergency Visit: Yes ED Registration Date: 10/15/16 Care time: The patient presented to the Emergency Department on the above date and was hospitalized for further evaluation of their emergent condition. - New Patient This patient is new to me today: No - Critical Care Critical Care patient: Yes Total Critical Care Time (in minutes): 43 Critical Care Statement: The care of this patient involved high complexity decision making to prevent further life threatening deterioration of the patient 's condition and/or to evalute & treat vital organ system(s) failure or risk of failure.
[2016-10-17 07:11] LABS: CALCIUM 8.3 mg/dL (8.5-10.1); COCKROFT - GAULT 52.42; CREATININE 1.1 mg/dL (0.7-1.3); MAGNESIUM 2.2 mg/dL (1.8-2.4); PHOSPHOROUS 1.6 mg/dL (2.5-4.9)
--- NOTE | 2016-10-17 08:07 | PN ---
Progress Note, Physician Chief Complaint: ID Intubated Cefepime - Current Medication List Current Medications: Active Medications Acetaminophen (Tylenol Suppository -) 650 mg AR Q6H PRN PRN Reason: FEVER OR PAIN Last Admin: 10/15/16 18:22 Dose: 650 mg Aspirin (Asa -) 300 mg RC DAILY [facility] Last Admin: 10/16/16 12:53 Dose: 300 mg Chlorhexidine Gluconate (Hibiclens For Decolonization -) 1 applic TP HS [facility] Last Admin: 10/16/16 21:23 Dose: 1 applic Heparin Sodium (Porcine) (Heparin -) 1,000 unit IVPUSH PRN PRN PRN Reason: Heparin Last Admin: 10/15/16 23:41 Dose: 1,000 unit Heparin Sodium (Porcine) (Heparin -) 5,000 unit IVPUSH PRN PRN PRN Reason: Heparin Heparin Sodium (Porcine) 25, (000 unit/ Sodium Chloride) 500 mls @ 16 mls/hr IV TITR KARLOS; 800 UNIT/HR PRN Reason: Protocol Last Admin: 10/16/16 16:10 Dose: 20 mls/hr Pantoprazole Sodium (Protonix 40mg Ivpb (Pre-Docked)) 100 mls @ 200 mls/hr IVPB DAILY [facility] Last Admin: 10/16/16 10:22 Dose: 200 mls/hr Propofol (Diprivan -) 100 mls @ 2.353 mls/hr IVPB TITR KARLOS; 5 MCG/KG/MIN PRN Reason: Protocol Last Admin: 10/16/16 18:57 Dose: 2.353 mls/hr Cefepime HCl 1 gm/ Dextrose 100 mls @ 200 mls/hr IVPB BID [facility] Last Admin: 10/16/16 21:23 Dose: 200 mls/hr Potassium Chloride/Dextrose/Sod Cl (D5-1/2ns+10 Meq Kcl -) 1,000 mls @ 42 mls/ hr IV ASDIR [facility] Last Admin: 10/16/16 17:48 Dose: 42 mls/hr Insulin Aspart (Novolog Vial Sliding Scale -) 1 vial SQ ACHS KARLOS PRN Reason: Protocol Last Admin: 10/17/16 07:32 Dose: 4 units Insulin Detemir (Levemir Vial) 8 units SQ BID [facility] Last Admin: 10/17/16 01:23 Dose: 8 units Metoprolol Tartrate (Lopressor Injection -) 2.5 mg IVPUSH Q8H-IV [facility]ARLOS Last Admin: 10/17/16 01:57 Dose: 2.5 mg Mupirocin (Bactroban Ointment (For Decolonization) -) 1 applic NS BID KARLOS Stop: 10/20/16 21:59 Last Admin: 10/16/16 21:23 Dose: 1 applic - Objective Vital Signs: Vital Signs Temperature 98.8 F 10/17/16 07:00 Pulse Rate 88 10/17/16 07:00 Respiratory Rate 19 10/17/16 07:29 Blood Pressure 139/94 10/17/16 07:00 O2 Sat by Pulse Oximetry (%) 97 10/16/16 22:00 Constitutional: Yes: No Distress Cardiovascular: Yes: Regular Rate and Rhythm, S1, S2 Respiratory: Yes: WNL, Regular, CTA Bilaterally Gastrointestinal: Yes: WNL, Normal Bowel Sounds, Soft. No: Tenderness, Tenderness, Rebound Extremities: No: Cold, Cool, Cyanosis Edema: No Labs: CBC, BMP 10/17/16 05:25 10/17/16 05:25 INR, PTT INR 1.24 (0.82-1.09) H 10/15/16 09:16 Problem List - Problems (1) Acute respiratory failure with hypoxia Code(s): J96.01 - ACUTE RESPIRATORY FAILURE WITH HYPOXIA (2) Healthcare-associated pneumonia Code(s): J18.9 - PNEUMONIA, UNSPECIFIED ORGANISM (3) Sepsis Code(s): A41.9 - SEPSIS, UNSPECIFIED ORGANISM Qualifiers: Sepsis type: sepsis due to unspecified organism Qualified Code(s): A41.9 - Sepsis, unspecified organism Assessment/Plan Microbiology 10/15/16 09:30 Urine - Urine - Catheterized Urine Culture - Final 10/15/16 09:22 Blood - Peripheral Venous Blood Culture - Preliminary NO GROWTH OBTAINED AFTER 24 HOURS, INCUBATION TO CONTINUE FOR 4 DAYS. 10/15/16 09:10 Blood - Peripheral Venous Blood Culture - Preliminary NO GROWTH OBTAINED AFTER 24 HOURS, INCUBATION TO CONTINUE FOR 4 DAYS. Laboratory Tests 10/17/16 10/17/16 05:25 05:25 WBC 20.9 H D Hgb 12.7 Plt Count 382 D BUN 39 H D Creatinine 1.1 Assessment Pneumonia possible healthcare associated Respiratory failure Elevated TNI Elevated WBC ?? Staph MRSA Plan Continue Cefepime Send again sputum c/s Redose Vancomycin pending 1250mg dose daily Mariana ALFONSO
[2016-10-17 09:38] LABS: BURR CELLS 2+
--- NOTE | 2016-10-17 09:54 | PN ---
Progress Note, Physician Chief Complaint: Intubated sedated On Heparin infusion - Current Medication List Current Medications: Active Medications Acetaminophen (Tylenol Suppository -) 650 mg VT Q6H PRN PRN Reason: FEVER OR PAIN Last Admin: 10/15/16 18:22 Dose: 650 mg Aspirin (Asa -) 300 mg RC DAILY [facility]ARLOS Last Admin: 10/16/16 12:53 Dose: 300 mg Chlorhexidine Gluconate (Hibiclens For Decolonization -) 1 applic TP HS [facility]OS Last Admin: 10/16/16 21:23 Dose: 1 applic Heparin Sodium (Porcine) (Heparin -) 1,000 unit IVPUSH PRN PRN PRN Reason: Heparin Last Admin: 10/15/16 23:41 Dose: 1,000 unit Heparin Sodium (Porcine) (Heparin -) 5,000 unit IVPUSH PRN PRN PRN Reason: Heparin Heparin Sodium (Porcine) 25, (000 unit/ Sodium Chloride) 500 mls @ 16 mls/hr IV TITR KARLOS; 800 UNIT/HR PRN Reason: Protocol Last Admin: 10/16/16 16:10 Dose: 20 mls/hr Pantoprazole Sodium (Protonix 40mg Ivpb (Pre-Docked)) 100 mls @ 200 mls/hr IVPB DAILY [facility] Last Admin: 10/16/16 10:22 Dose: 200 mls/hr Propofol (Diprivan -) 100 mls @ 2.353 mls/hr IVPB TITR KARLOS; 5 MCG/KG/MIN PRN Reason: Protocol Last Admin: 10/16/16 18:57 Dose: 2.353 mls/hr Cefepime HCl 1 gm/ Dextrose 100 mls @ 200 mls/hr IVPB BID [facility] Last Admin: 10/16/16 21:23 Dose: 200 mls/hr Potassium Chloride/Dextrose/Sod Cl (D5-1/2ns+10 Meq Kcl -) 1,000 mls @ 42 mls/ hr IV ASDIR [facility] Last Admin: 10/16/16 17:48 Dose: 42 mls/hr Vancomycin HCl 1,250 mg/ (Dextrose) 250 mls @ 166.667 mls/hr IVPB DAILY KARLOS PRN Reason: Protocol Metronidazole (Flagyl 500mg Premixed Ivpb -) 100 mls @ 100 mls/hr IVPB Q8H-IV KARLOS Insulin Aspart (Novolog Vial Sliding Scale -) 1 vial SQ ACHS [facility] PRN Reason: Protocol Last Admin: 10/17/16 07:32 Dose: 4 units Insulin Detemir (Levemir Vial) 8 units SQ BID [facility] Last Admin: 10/17/16 01:23 Dose: 8 units Metoprolol Tartrate (Lopressor Injection -) 2.5 mg IVPUSH Q8H-IV KARLOS Last Admin: 10/17/16 01:57 Dose: 2.5 mg Mupirocin (Bactroban Ointment (For Decolonization) -) 1 applic NS BID KARLOS Stop: 10/20/16 21:59 Last Admin: 10/16/16 21:23 Dose: 1 applic - Objective Vital Signs: Vital Signs Temperature 98.8 F 10/17/16 07:00 Pulse Rate 88 10/17/16 07:00 Respiratory Rate 19 10/17/16 07:29 Blood Pressure 139/94 10/17/16 07:00 O2 Sat by Pulse Oximetry (%) 97 10/16/16 22:00 Constitutional: Yes: No Distress Cardiovascular: Yes: Regular Rate and Rhythm Respiratory: Yes: Diminished Gastrointestinal: Yes: Normal Bowel Sounds, Soft. No: Distention Edema: Yes Edema: LLE: Trace, RLE: Trace Labs: CBC, BMP 10/17/16 05:25 10/17/16 05:25 INR, PTT INR 1.24 (0.82-1.09) H 10/15/16 09:16 Problem List - Problems (1) Acute respiratory failure with hypoxia Code(s): J96.01 - ACUTE RESPIRATORY FAILURE WITH HYPOXIA (2) Sepsis Code(s): A41.9 - SEPSIS, UNSPECIFIED ORGANISM Qualifiers: Sepsis type: sepsis due to unspecified organism Qualified Code(s): A41.9 - Sepsis, unspecified organism (3) Alzheimer disease Code(s): G30.9 - ALZHEIMER'S DISEASE, UNSPECIFIED Qualifiers: Alzheimer's disease onset: early-onset Dementia behavioral disturbance : without behavioral disturbance Qualified Code(s): G30.0 - Alzheimer's disease with early onset; F02.81 - Dementia in other diseases classified elsewhere with behavioral disturbance (4) Healthcare-associated pneumonia Code(s): J18.9 - PNEUMONIA, UNSPECIFIED ORGANISM Assessment/Plan PLAN Vent management per ICU, weaning as tolerated had Tmax 100F IV antibiotics-- added Flagyl for aspiration pneumonia ID follow up noted nebs DVT prophylaxis- Heparin infusion- for NSTEMI- due to sepsis
[2016-10-17] MEDS: D5-1/2NS+10 MEQ KCL - 1,000 ML IV SCH (10:22)
[2016-10-17] MEDS ORDERED: PT OWN MED DRAWER 7, Y5N ONE ×2 (10:26→21:41)
[2016-10-17] MEDS: METRONIDAZOLE 500 MG PREMIXED 100 ML IVPB SCH ×2 (10:29→19:37)
[2016-10-17] MEDS: HEPARIN NA (PORCINE) 5,000 UNITS/ML 1ML VIAL IVPUSH PRN (10:30)
[2016-10-17] MEDS: PANTOPRAZOLE SODIUM 100 ML IVPB SCH (11:25)
[2016-10-17] MEDS: MUPIROCIN 2% TOPICAL OINTMENT FOR DECOLONIZATION NS SCH ×2 (11:26→21:54)
[2016-10-17] MEDS: CEFEPIME 1 GM in DEXTROSE 5%-WATER - 100 ML IVPB SCH ×2 (11:42→21:53)
--- NOTE | 2016-10-17 12:07 | PN ---
Teaching Attending Note Name of Resident: Madeline Mayo ATTENDING PHYSICIAN STATEMENT I saw and evaluated the patient. I reviewed the resident's note and discussed the case with the resident. I agree with the resident's findings and plan as documented. SUBJECTIVE: Pt seen and examined in the ICU. Remains intubated, sedated. Low grade fever overnight but overall fever curve trending down. OBJECTIVE: Last Vital Signs Temp Pulse Resp BP Pulse Ox 98.5 F 100 H 20 140/88 97 10/17/16 10:00 10/17/16 10:31 10/17/16 10:00 10/17/16 10:31 10/16/16 22:00 Intake & Output 10/14/16 10/15/16 10/16/16 10/17/16 23:59 23:59 23:59 23:59 Intake Total 4819.0 3085.6 964 Output Total 880 400 650 Balance 3939.0 2685.6 314 Weight 172 lb 14.4 oz 169 lb 8 oz 175 lb 1.6 oz Gen: intubated, sedated Heart: tachycardic, regular Lung: scattered rhonchi Abd: soft, nontender Ext: no edema CBC, BMP 10/17/16 05:25 10/17/16 05:25 Active Medications Acetaminophen (Tylenol Suppository -) 650 mg IN Q6H PRN PRN Reason: FEVER OR PAIN Last Admin: 10/15/16 18:22 Dose: 650 mg Aspirin (Asa -) 300 mg RC DAILY [facility] Last Admin: 10/16/16 12:53 Dose: 300 mg Chlorhexidine Gluconate (Hibiclens For Decolonization -) 1 applic TP HS [facility] Last Admin: 10/16/16 21:23 Dose: 1 applic Heparin Sodium (Porcine) (Heparin -) 1,000 unit IVPUSH PRN PRN PRN Reason: Heparin Last Admin: 10/17/16 10:30 Dose: 1,000 unit Heparin Sodium (Porcine) (Heparin -) 5,000 unit IVPUSH PRN PRN PRN Reason: Heparin Heparin Sodium (Porcine) 25, (000 unit/ Sodium Chloride) 500 mls @ 16 mls/hr IV TITR KARLOS; 800 UNIT/HR PRN Reason: Protocol Last Titration: 10/17/16 10:24 Dose: 1,100 unit/hr Pantoprazole Sodium (Protonix 40mg Ivpb (Pre-Docked)) 100 mls @ 200 mls/hr IVPB DAILY [facility] Last Admin: 10/17/16 11:25 Dose: 200 mls/hr Propofol (Diprivan -) 100 mls @ 2.353 mls/hr IVPB TITR KARLOS; 5 MCG/KG/MIN PRN Reason: Protocol Last Titration: 10/17/16 09:45 Dose: 0 mcg/kg/min Cefepime HCl 1 gm/ Dextrose 100 mls @ 200 mls/hr IVPB BID [facility] Last Admin: 10/17/16 11:42 Dose: 200 mls/hr Potassium Chloride/Dextrose/Sod Cl (D5-1/2ns+10 Meq Kcl -) 1,000 mls @ 42 mls/ hr IV ASDIR [facility] Last Admin: 10/17/16 10:22 Dose: 42 mls/hr Vancomycin HCl 1,250 mg/ (Dextrose) 250 mls @ 166.667 mls/hr IVPB DAILY [facility] PRN Reason: Protocol Metronidazole (Flagyl 500mg Premixed Ivpb -) 100 mls @ 100 mls/hr IVPB Q8H-IV [facility] Last Admin: 10/17/16 10:29 Dose: 100 mls/hr Insulin Aspart (Novolog Vial Sliding Scale -) 1 vial SQ ACHS [facility] PRN Reason: Protocol Last Admin: 10/17/16 07:32 Dose: 4 units Insulin Detemir (Levemir Vial) 8 units SQ BID [facility] Last Admin: 10/17/16 10:33 Dose: 8 units Metoprolol Tartrate (Lopressor Injection -) 2.5 mg IVPUSH Q8H-IV [facility] Last Admin: 10/17/16 10:31 Dose: 2.5 mg Mupirocin (Bactroban Ointment (For Decolonization) -) 1 applic NS BID [facility] Stop: 10/20/16 21:59 Last Admin: 10/17/16 11:26 Dose: 1 applic Potassium Phos/Sodium Phos (Phos-Nak Packet -) 1 packet NGT DAILY [facility] Stop: 10/18/16 10:01 ASSESSMENT AND PLAN: Acute Hypoxic Respiratory Failure Pneumonia Recent Influenza Severe Sepsis Acute Kidney Injury Lactic Acidosis +Troponins - ?Demand Ischemia from Sepsis LV Systolic Heart Failure HTN CAD DM Dementia - continue antibiotics - f/u cultures - free water via OGT - monitor urine output, creatinine - ASA, beta regina if BP tolerates - anticoagulation per cardiology - taper Fio2 to keep Spo2 >90% - minimize sedation to assess mental status - start spontaneous breathing trials as tolerated when mental status improves - start enteral feeds - DVT/GI prophylaxis - ICU monitoring critical care time spent in reviewing chart, evaluating patient and formulating plan 40 min
[2016-10-17] MEDS: ASPIRIN 300 MG SUPP.RECT RC SCH (12:24)
[2016-10-17] MEDS: NAPH,MB-DB/K PH,MBDB POWDER PACKET NGT SCH (12:24)
[2016-10-17] MEDS: VANCOMYCIN 1,250 MG in DEXTROSE 5%-WATER - 250 ML IVPB SCH (12:25)
--- NOTE | 2016-10-17 14:11 | EKG ---
Test Reason : Blood Pressure : / mmHG Vent. Rate : 137 BPM Atrial Rate : 137 BPM P-R Int : 000 ms QRS Dur : 096 ms QT Int : 294 ms P-R-T Axes : 000 -75 253 degrees QTc Int : 443 ms SINUS TACHYCARDIA WITH PREMATURE VENTRICULAR COMPLEXES OR FUSION COMPLEXES LEFT AXIS DEVIATION INFERIOR INFARCT (CITED ON OR BEFORE 26-MAR-2016) ANTEROSEPTAL INFARCT (CITED ON OR BEFORE 04-APR-2000) ABNORMAL ECG WHEN COMPARED WITH ECG OF 15-OCT-2016 08:32, PREVIOUS ECG HAS UNDETERMINED RHYTHM, NEEDS REVIEW INCOMPLETE RIGHT BUNDLE BRANCH BLOCK IS NO LONGER PRESENT QUESTIONABLE CHANGE IN INITIAL [employer] OF [employer] Confirmed by DANNY COLEMAN MD ([id number]) on 10/17/2016 2:11:04 PM Referred By: Confirmed By:DANNY COLEMAN MD
[2016-10-17] MEDS: HEPARIN - 25,000 UNIT in SODIUM CHLORIDE 495 ML IV SCH (14:44)
[2016-10-17] MEDS: PROPOFOL 100 ML IVPB SCH (17:03)
--- NOTE | 2016-10-17 19:58 | PN ---
Progress Note (short form) - Note Progress Note: CC: s: intubated, sedated, no overnight events o: Current Medications Acetaminophen (Tylenol Suppository -) 650 mg DC Q6H PRN PRN Reason: FEVER OR PAIN Last Admin: 10/15/16 18:22 Dose: 650 mg Aspirin (Asa -) 300 mg RC DAILY [facility] Last Admin: 10/17/16 12:24 Dose: 300 mg Chlorhexidine Gluconate (Hibiclens For Decolonization -) 1 applic TP HS [facility] Last Admin: 10/16/16 21:23 Dose: 1 applic Chlorhexidine Gluconate (Peridex -) 15 ml MM BID [facility] Heparin Sodium (Porcine) (Heparin -) 1,000 unit IVPUSH PRN PRN PRN Reason: Heparin Last Admin: 10/17/16 10:30 Dose: 1,000 unit Heparin Sodium (Porcine) (Heparin -) 5,000 unit IVPUSH PRN PRN PRN Reason: Heparin Heparin Sodium (Porcine) 25, (000 unit/ Sodium Chloride) 500 mls @ 16 mls/hr IV TITR KARLOS; 800 UNIT/HR PRN Reason: Protocol Last Admin: 10/17/16 14:44 Dose: 22 mls/hr Pantoprazole Sodium (Protonix 40mg Ivpb (Pre-Docked)) 100 mls @ 200 mls/hr IVPB DAILY [facility] Last Admin: 10/17/16 11:25 Dose: 200 mls/hr Propofol (Diprivan -) 100 mls @ 2.353 mls/hr IVPB TITR KARLOS; 5 MCG/KG/MIN PRN Reason: Protocol Last Admin: 10/17/16 17:03 Dose: Not Given Cefepime HCl 1 gm/ Dextrose 100 mls @ 200 mls/hr IVPB BID [facility] Last Admin: 10/17/16 11:42 Dose: 200 mls/hr Vancomycin HCl 1,250 mg/ (Dextrose) 250 mls @ 166.667 mls/hr IVPB DAILY [facility] PRN Reason: Protocol Last Admin: 10/17/16 12:25 Dose: 166.667 mls/hr Metronidazole (Flagyl 500mg Premixed Ivpb -) 100 mls @ 100 mls/hr IVPB Q8H-IV [facility] Last Admin: 10/17/16 19:37 Dose: 100 mls/hr Insulin Aspart (Novolog Vial Sliding Scale -) 1 vial SQ ACHS [facility] PRN Reason: Protocol Last Admin: 10/17/16 17:03 Dose: 2 units Insulin Detemir (Levemir Vial) 8 units SQ BID [facility] Last Admin: 10/17/16 10:33 Dose: 8 units Metoprolol Tartrate (Lopressor Injection -) 2.5 mg IVPUSH Q8H-IV [facility] Last Admin: 10/17/16 19:36 Dose: 2.5 mg Mupirocin (Bactroban Ointment (For Decolonization) -) 1 applic NS BID [facility] Stop: 10/20/16 21:59 Last Admin: 10/17/16 11:26 Dose: 1 applic Potassium Phos/Sodium Phos (Phos-Nak Packet -) 1 packet NGT DAILY [facility] Stop: 10/18/16 10:01 Last Admin: 10/17/16 12:24 Dose: 1 packet Vital Signs Period Temp Pulse Resp BP Sys/Machado Pulse Ox Last 24 Hr 98.5 F-100.4 F 88-105 12-36 122-154/75-97 97-99 Intake & Output 10/15/16 10/16/16 10/17/16 10/18/16 07:59 07:59 07:59 07:59 Intake Total 7604.6 1264 1104 Output Total 1080 850 300 Balance 6524.6 414 804 Weight 169 lb 8 oz 175 lb 1.6 oz intubated, sedated rrr s1s2 no mrg coarse bs anteriorly, vented no jvd pos dp pt no jaundice diaphoresis no le e/c/c abd nd pos bs CBC, BMP 10/17/16 05:25 10/17/16 05:25 Laboratory Tests 10/16/16 10/17/16 10/17/16 18:00 05:25 17:45 Magnesium 2.2 Troponin I 0.91 H* D 0.36 H D tele: sinus tach, brief atrial run, occ pvcs, nsvt (10 beats, 7 beats) cxr: bibasilar infiltrates, slight congestion echo 10/2016: sev dilated lv, sev dec lvef, rv mod dilated, mod dec rv fcn, reina , mild mr est cct 36 mins Assessment/Plan acute hypoxic resp failure: -remains intubated -b/l infiltrates on cxr -suspect PNA (hi fever, recent + flu) >> chf -cont abx per ID hi fever, sepsis -hemodynamically stable at present, without need for pressors JULIET: -initial creat 1.9, from 0.9-1.0 prior -? all sepsis related -cr now improved s/p abx, ivfs prior h/o CAD, elevated troponin: -initial trop 3.4, normal ck. Trop now trending down. -florid sepsis picture makes the elevated troponin likely due to sepsis direct myocardial injury, vs Type II NV from hypoxia/tachycardia/? transiently hypotensive in NH -ECG with ischemic changes (TWIs anteriorly)--also could all be secondary to above -cannot definitively rule out acute AWMI based on this ecg, however not likely given changes are improving, not evolving, on serial tracings; -echo here with severe dec lvef -will cont to treat as nstemi with hep gtt x 48-72 hrs, asa pr. no plavix as not taking po meds. -start statin when taking po -cont iv bb for now until able to take po -cont tele -further ischemic eval based on clinical course NSVT: -several brief runs on tele, no recent recurrence -replete lytes prn -cont bb systolic chf, likely chronic: -echo here showing biventricular failure -avoid excess ivfs -currently no sig vol overload -cont bb -when stable, taking po, will start po chf regimen including bb and kathie -further ischemic eval based on clinical course
[2016-10-17] MEDS: CHLORHEXIDINE GLUCONATE 0.12% 15ML CUP MM SCH (21:52)
[2016-10-17] MEDS: CHLORHEXIDINE GLUCONATE 4% CLEANSER FOR DECOLONIZATION TP SCH (21:54)
[2016-10-18] MEDS: METRONIDAZOLE 500 MG PREMIXED 100 ML IVPB SCH ×3 (03:00→17:40)
[2016-10-18] MEDS: METOPROLOL TARTRATE 5 MG/5 ML VIAL IVPUSH SCH ×4 (03:00→21:31)
[2016-10-18 06:13] LABS: MCHC 33.3 g/dl (32.0-35.9); PLATELET COUNT 375 K/MM3 (134-434); RDW 14.9 % (11.9-15.9); WHITE BLOOD COUNT 13.9 K/mm3 (4.0-10.0)
[2016-10-18] MEDS: INSULIN SLIDING SCALE (NOVOLOG) 1 VIAL SQ SCH ×4 (06:23→22:10)
[2016-10-18 06:45] LABS: CALCIUM 7.7 mg/dL (8.5-10.1); CREATININE 0.9 mg/dL (0.7-1.3); MAGNESIUM 1.7 mg/dL (1.8-2.4); PHOSPHOROUS 2.3 mg/dL (2.5-4.9)
[2016-10-18 07:32] LABS: ARTERIAL BLD GAS O2 SATURATION 96.5 % (90-98.9); ARTERIAL BLOOD GAS BASE EXCESS -1.9 meq/l (-2-2); ARTERIAL BLOOD GAS HCO3 20.6 meq/L (22-26); ARTERIAL BLOOD GAS PO2 82.9 mmHg (68-100); ARTERIAL BLOOD GAS pH 7.45 (7.35-7.45)
[2016-10-18 07:33] LABS: ALLENS TEST POSITIVE; ART PUNCT SITE RIGHT RADIAL; PT. ON O2? YES
[2016-10-18 07:34] LABS: LPM/O2% 40%; MECH. VENT. Y; TYPE OF O2 VENT; VENT RATE 12; VT/PRESS 500
--- NOTE | 2016-10-18 07:52 | PN ---
Progress Note, Physician Chief Complaint: ID Vancomycin and Cefepime metronidazole Remains intubated - Current Medication List Current Medications: Active Medications Acetaminophen (Tylenol Suppository -) 650 mg [place] Q6H PRN PRN Reason: FEVER OR PAIN Last Admin: 10/15/16 18:22 Dose: 650 mg Aspirin (Asa -) 300 mg RC DAILY [facility] Last Admin: 10/17/16 12:24 Dose: 300 mg Chlorhexidine Gluconate (Hibiclens For Decolonization -) 1 applic TP HS [facility] Last Admin: 10/17/16 21:54 Dose: 1 applic Chlorhexidine Gluconate (Peridex -) 15 ml MM BID [facility] Last Admin: 10/17/16 21:52 Dose: 15 ml Heparin Sodium (Porcine) (Heparin -) 1,000 unit IVPUSH PRN PRN PRN Reason: Heparin Last Admin: 10/17/16 10:30 Dose: 1,000 unit Heparin Sodium (Porcine) (Heparin -) 5,000 unit IVPUSH PRN PRN PRN Reason: Heparin Heparin Sodium (Porcine) 25, (000 unit/ Sodium Chloride) 500 mls @ 16 mls/hr IV TITR KARLOS; 800 UNIT/HR PRN Reason: Protocol Last Admin: 10/17/16 14:44 Dose: 22 mls/hr Pantoprazole Sodium (Protonix 40mg Ivpb (Pre-Docked)) 100 mls @ 200 mls/hr IVPB DAILY [facility] Last Admin: 10/17/16 11:25 Dose: 200 mls/hr Propofol (Diprivan -) 100 mls @ 2.353 mls/hr IVPB TITR KARLOS; 5 MCG/KG/MIN PRN Reason: Protocol Last Admin: 10/17/16 17:03 Dose: Not Given Cefepime HCl 1 gm/ Dextrose 100 mls @ 200 mls/hr IVPB BID [facility] Last Admin: 10/17/16 21:53 Dose: 200 mls/hr Vancomycin HCl 1,250 mg/ (Dextrose) 250 mls @ 166.667 mls/hr IVPB DAILY [facility] PRN Reason: Protocol Last Admin: 10/17/16 12:25 Dose: 166.667 mls/hr Metronidazole (Flagyl 500mg Premixed Ivpb -) 100 mls @ 100 mls/hr IVPB Q8H-IV [facility] Last Admin: 10/18/16 03:00 Dose: 100 mls/hr Insulin Aspart (Novolog Vial Sliding Scale -) 1 vial SQ ACHS [facility] PRN Reason: Protocol Last Admin: 10/18/16 06:23 Dose: 2 units Insulin Detemir (Levemir Vial) 8 units SQ BID [facility] Last Admin: 10/17/16 21:53 Dose: 8 units Magnesium Sulfate (Magnesium Sulfate) 2 gm IVPB ONCE ONE Stop: 10/18/16 08:01 Metoprolol Tartrate (Lopressor Injection -) 2.5 mg IVPUSH Q8H-IV [facility] Last Admin: 10/18/16 03:00 Dose: 2.5 mg Mupirocin (Bactroban Ointment (For Decolonization) -) 1 applic NS BID [facility] Stop: 10/20/16 21:59 Last Admin: 10/17/16 21:54 Dose: 1 applic Potassium Phos/Sodium Phos (Phos-Nak Packet -) 1 packet NGT DAILY [facility] Stop: 10/18/16 10:01 Last Admin: 10/17/16 12:24 Dose: 1 packet - Objective Vital Signs: Vital Signs Temperature 99.2 F 10/18/16 00:00 Pulse Rate 78 10/18/16 06:00 Respiratory Rate 18 10/18/16 07:42 Blood Pressure 151/92 10/18/16 06:00 O2 Sat by Pulse Oximetry (%) 96 10/17/16 22:00 Neck: Yes: Trachea Midline Cardiovascular: Yes: WNL, S1, S2. No: Gallop, Murmur, Rub Respiratory: Yes: Regular, Intubated Gastrointestinal: Yes: Soft Genitourinary: Yes: Palacio Present Extremities: Yes: WNL. No: Cold, Cool, Cyanosis Edema: No Labs: CBC, BMP 10/18/16 05:15 10/18/16 05:15 INR, PTT INR 1.24 (0.82-1.09) H 10/15/16 09:16 Problem List - Problems (1) Acute respiratory failure with hypoxia Code(s): J96.01 - ACUTE RESPIRATORY FAILURE WITH HYPOXIA (2) Healthcare-associated pneumonia Code(s): J18.9 - PNEUMONIA, UNSPECIFIED ORGANISM (3) Sepsis Code(s): A41.9 - SEPSIS, UNSPECIFIED ORGANISM Qualifiers: Sepsis type: sepsis due to unspecified organism Qualified Code(s): A41.9 - Sepsis, unspecified organism Assessment/Plan Microbiology 10/15/16 21:00 Urine For Antigen Detection Legionella Antigen - Final 10/15/16 21:00 Urine For Antigen Detection Streptococcus pneumoniae Antigen (M - Final 10/15/16 10:45 Nasopharyngeal Swab Influenza Types A,B Antigen (BRIDGETTE) - Final 10/15/16 10:45 Nasopharyngeal Swab - Final 10/15/16 09:30 Urine - Urine - Catheterized Urine Culture - Final 10/15/16 10:45 Nasopharyngeal Swab Respiratory Virus Panel - Preliminary 10/15/16 09:22 Blood - Peripheral Venous Blood Culture - Preliminary NO GROWTH OBTAINED AFTER 48 HOURS, INCUBATION TO CONTINUE FOR 3 DAYS. 10/15/16 09:10 Blood - Peripheral Venous Blood Culture - Preliminary NO GROWTH OBTAINED AFTER 48 HOURS, INCUBATION TO CONTINUE FOR 3 DAYS. Laboratory Tests 10/16/16 10/18/16 10/18/16 05:20 05:15 05:15 WBC 13.9 H D Hgb 13.0 Plt Count 375 BUN 31 H D Creatinine 0.9 Random Vancomycin 3.851 Assessment Respiratory failure Possible aspiration Recent influenza Plan Continue broad spectrum antibiotics as ordered Mariana ALFONSO
[2016-10-18] MEDS ORDERED: MAGNESIUM SULF 50% (8.12 MEQ/2 ML-1 GM VIAL) IVPB ONE (08:00)
[2016-10-18] MEDS: CHLORHEXIDINE GLUCONATE 0.12% 15ML CUP MM SCH ×2 (09:05→21:33)
[2016-10-18] MEDS: NAPH,MB-DB/K PH,MBDB POWDER PACKET NGT SCH (09:05)
[2016-10-18] MEDS ORDERED: PT OWN MED DRAWER 7, Y5N ONE ×2 (09:18→21:16)
[2016-10-18] MEDS: CEFEPIME 1 GM in DEXTROSE 5%-WATER - 100 ML IVPB SCH ×2 (09:24→21:33)
[2016-10-18] MEDS: PANTOPRAZOLE SODIUM 100 ML IVPB SCH (09:25)
[2016-10-18] MEDS: MUPIROCIN 2% TOPICAL OINTMENT FOR DECOLONIZATION NS SCH ×2 (09:25→21:32)
--- NOTE | 2016-10-18 10:11 | PN ---
Progress Note, Physician Chief Complaint: off propofol since yesterday Not awake he is still lethargic He spontaneously moves rt arm, not left arm - Current Medication List Current Medications: Active Medications Acetaminophen (Tylenol Suppository -) 650 mg DE Q6H PRN PRN Reason: FEVER OR PAIN Last Admin: 10/15/16 18:22 Dose: 650 mg Aspirin (Asa -) 300 mg RC DAILY [facility] Last Admin: 10/17/16 12:24 Dose: 300 mg Chlorhexidine Gluconate (Hibiclens For Decolonization -) 1 applic TP HS [facility] Last Admin: 10/17/16 21:54 Dose: 1 applic Chlorhexidine Gluconate (Peridex -) 15 ml MM BID [facility] Last Admin: 10/18/16 09:05 Dose: 15 ml Heparin Sodium (Porcine) (Heparin -) 1,000 unit IVPUSH PRN PRN PRN Reason: Heparin Last Admin: 10/17/16 10:30 Dose: 1,000 unit Heparin Sodium (Porcine) (Heparin -) 5,000 unit IVPUSH PRN PRN PRN Reason: Heparin Heparin Sodium (Porcine) 25, (000 unit/ Sodium Chloride) 500 mls @ 16 mls/hr IV TITR [facility]ARLOS; 800 UNIT/HR PRN Reason: Protocol Last Admin: 10/17/16 14:44 Dose: 22 mls/hr Pantoprazole Sodium (Protonix 40mg Ivpb (Pre-Docked)) 100 mls @ 200 mls/hr IVPB DAILY [facility] Last Admin: 10/18/16 09:25 Dose: 200 mls/hr Propofol (Diprivan -) 100 mls @ 2.353 mls/hr IVPB TITR KARLOS; 5 MCG/KG/MIN PRN Reason: Protocol Last Admin: 10/17/16 17:03 Dose: Not Given Cefepime HCl 1 gm/ Dextrose 100 mls @ 200 mls/hr IVPB BID [facility] Last Admin: 10/18/16 09:24 Dose: 200 mls/hr Vancomycin HCl 1,250 mg/ (Dextrose) 250 mls @ 166.667 mls/hr IVPB DAILY [facility] PRN Reason: Protocol Last Admin: 10/17/16 12:25 Dose: 166.667 mls/hr Metronidazole (Flagyl 500mg Premixed Ivpb -) 100 mls @ 100 mls/hr IVPB Q8H-IV [facility] Last Admin: 10/18/16 09:04 Dose: 100 mls/hr Insulin Aspart (Novolog Vial Sliding Scale -) 1 vial SQ ACHS [facility] PRN Reason: Protocol Last Admin: 10/18/16 06:23 Dose: 2 units Insulin Detemir (Levemir Vial) 8 units SQ BID [facility] Last Admin: 10/17/16 21:53 Dose: 8 units Metoprolol Tartrate (Lopressor Injection -) 2.5 mg IVPUSH Q8H-IV [facility] Last Admin: 10/18/16 09:06 Dose: 2.5 mg Mupirocin (Bactroban Ointment (For Decolonization) -) 1 applic NS BID [facility] Stop: 10/20/16 21:59 Last Admin: 10/18/16 09:25 Dose: 1 applic - Objective Vital Signs: Vital Signs Temperature 98 F 10/18/16 08:00 Pulse Rate 85 10/18/16 08:00 Respiratory Rate 23 10/18/16 09:28 Blood Pressure 152/92 10/18/16 09:06 O2 Sat by Pulse Oximetry (%) 96 10/17/16 22:00 Constitutional: Yes: No Distress, Other (intubated) Cardiovascular: Yes: Regular Rate and Rhythm Respiratory: Yes: Diminished Gastrointestinal: Yes: Normal Bowel Sounds, Soft. No: Distention, Tenderness Edema: Yes Edema: LLE: 1+, RLE: 1+ Neurological: Yes: Lethargy, Other (moves feet, but does not move left arm, he spontaneously lifts right arm. No response to commands) Labs: CBC, BMP 10/18/16 05:15 10/18/16 05:15 INR, PTT INR 1.24 (0.82-1.09) H 10/15/16 09:16 Problem List - Problems (1) Acute respiratory failure with hypoxia Code(s): J96.01 - ACUTE RESPIRATORY FAILURE WITH HYPOXIA (2) Sepsis Code(s): A41.9 - SEPSIS, UNSPECIFIED ORGANISM Qualifiers: Sepsis type: sepsis due to unspecified organism Qualified Code(s): A41.9 - Sepsis, unspecified organism (3) Alzheimer disease Code(s): G30.9 - ALZHEIMER'S DISEASE, UNSPECIFIED Qualifiers: Alzheimer's disease onset: early-onset Dementia behavioral disturbance : without behavioral disturbance Qualified Code(s): G30.0 - Alzheimer's disease with early onset; F02.81 - Dementia in other diseases classified elsewhere with behavioral disturbance (4) Healthcare-associated pneumonia Code(s): J18.9 - PNEUMONIA, UNSPECIFIED ORGANISM Assessment/Plan PLAN unable to wean as he is lethargic IV antibiotics ID follow up noted nebs check CT head prognosis guarded need to discuss with family about GOC DVT prophylaxis- Heparin infusion- for NSTEMI- due to sepsis
[2016-10-18] MEDS: ASPIRIN 300 MG SUPP.RECT RC SCH (11:00)
[2016-10-18] MEDS: VANCOMYCIN 1,250 MG in DEXTROSE 5%-WATER - 250 ML IVPB SCH (12:03)
[2016-10-18] MEDS: HEPARIN - 25,000 UNIT in SODIUM CHLORIDE 495 ML IV SCH (14:39)
--- NOTE | 2016-10-18 15:44 | PN ---
Progress Note (short form) - Note Progress Note: Patient seen and examined in the ICU. Remains intubated but off sedation. Minimal response noted to noxious stimuli. No pressors. AC mode of vent. OBJECTIVE: Intake & Output 10/15/16 10/16/16 10/17/16 10/18/16 23:59 23:59 23:59 23:59 Intake Total 4819.0 3085.6 2168 1219.6 Output Total 004 815 7960 1050 Balance 3939.0 2685.6 518 169.6 Weight 172 lb 14.4 oz 169 lb 8 oz 175 lb 1.6 oz 176 lb 12.972 oz Last Vital Signs Temp Pulse Resp BP Pulse Ox 96.9 F L 76 23 155/85 96 10/18/16 14:00 10/18/16 15:30 10/18/16 15:30 10/18/16 15:30 10/17/16 22:00 Active Medications Acetaminophen (Tylenol Suppository -) 650 mg UT Q6H PRN PRN Reason: FEVER OR PAIN Last Admin: 10/15/16 18:22 Dose: 650 mg Aspirin (Asa -) 300 mg RC DAILY [facility] Last Admin: 10/18/16 11:00 Dose: 300 mg Chlorhexidine Gluconate (Hibiclens For Decolonization -) 1 applic TP HS [facility] Last Admin: 10/17/16 21:54 Dose: 1 applic Chlorhexidine Gluconate (Peridex -) 15 ml MM BID [facility] Last Admin: 10/18/16 09:05 Dose: 15 ml Heparin Sodium (Porcine) (Heparin -) 1,000 unit IVPUSH PRN PRN PRN Reason: Heparin Last Admin: 10/17/16 10:30 Dose: 1,000 unit Heparin Sodium (Porcine) (Heparin -) 5,000 unit IVPUSH PRN PRN PRN Reason: Heparin Heparin Sodium (Porcine) 25, (000 unit/ Sodium Chloride) 500 mls @ 16 mls/hr IV TITR KARLOS; 800 UNIT/HR PRN Reason: Protocol Last Admin: 10/18/16 14:39 Dose: 24 mls/hr Pantoprazole Sodium (Protonix 40mg Ivpb (Pre-Docked)) 100 mls @ 200 mls/hr IVPB DAILY [facility] Last Admin: 10/18/16 09:25 Dose: 200 mls/hr Propofol (Diprivan -) 100 mls @ 2.353 mls/hr IVPB TITR KARLOS; 5 MCG/KG/MIN PRN Reason: Protocol Last Admin: 10/17/16 17:03 Dose: Not Given Cefepime HCl 1 gm/ Dextrose 100 mls @ 200 mls/hr IVPB BID [facility] Last Admin: 10/18/16 09:24 Dose: 200 mls/hr Vancomycin HCl 1,250 mg/ (Dextrose) 250 mls @ 166.667 mls/hr IVPB DAILY [facility] PRN Reason: Protocol Last Admin: 10/18/16 12:03 Dose: 166.667 mls/hr Metronidazole (Flagyl 500mg Premixed Ivpb -) 100 mls @ 100 mls/hr IVPB Q8H-IV [facility] Last Admin: 10/18/16 09:04 Dose: 100 mls/hr Insulin Aspart (Novolog Vial Sliding Scale -) 1 vial SQ ACHS [facility] PRN Reason: Protocol Last Admin: 10/18/16 13:45 Dose: 6 units Insulin Detemir (Levemir Vial) 8 units SQ BID [facility] Last Admin: 10/17/16 21:53 Dose: 8 units Metoprolol Tartrate (Lopressor Injection -) 2.5 mg IVPUSH Q8H-IV [facility] Last Admin: 10/18/16 09:06 Dose: 2.5 mg Mupirocin (Bactroban Ointment (For Decolonization) -) 1 applic NS BID [facility] Stop: 10/20/16 21:59 Last Admin: 10/18/16 09:25 Dose: 1 applic Gen: intubated, minimal response Heart: tachycardic, regular Lung: scattered rhonchi Abd: soft, nontender Ext: no edema Laboratory Results - last 24 hr 10/17/16 10/17/16 10/17/16 16:58 17:45 17:45 WBC RBC Hgb Hct MCV MCHC RDW Plt Count MPV PTT (Actin FS) 43.6 H Puncture Site ABG pH ABG pCO2 at Pt Temp ABG pO2 at Pt Temp ABG HCO3 ABG O2 Sat (Measured) ABG O2 Content ABG Base Excess Alexandro Test O2 Delivery Device Oxygen Flow Rate Vent Mode Vent Rate Mechanical Rate PEEP Pressure Support Vent Sodium Potassium Chloride Carbon Dioxide Anion Gap BUN Creatinine POC Glucometer 183.74895 Random Glucose Calcium Phosphorus Magnesium Troponin I 0.36 H D 10/17/16 10/18/16 10/18/16 21:38 01:18 05:15 WBC 13.9 H D RBC 4.66 Hgb 13.0 Hct 39.1 MCV 84.0 MCHC 33.3 RDW 14.9 Plt Count 375 MPV 9.0 PTT (Actin FS) 47.9 H Puncture Site ABG pH ABG pCO2 at Pt Temp ABG pO2 at Pt Temp ABG HCO3 ABG O2 Sat (Measured) ABG O2 Content ABG Base Excess Alexandro Test O2 Delivery Device Oxygen Flow Rate Vent Mode Vent Rate Mechanical Rate PEEP Pressure Support Vent Sodium Potassium Chloride Carbon Dioxide Anion Gap BUN Creatinine POC Glucometer 151.80912 Random Glucose Calcium Phosphorus Magnesium Troponin I 10/18/16 10/18/16 10/18/16 05:15 05:15 05:59 WBC RBC Hgb Hct MCV MCHC RDW Plt Count MPV PTT (Actin FS) 51.4 H Puncture Site ABG pH ABG pCO2 at Pt Temp ABG pO2 at Pt Temp ABG HCO3 ABG O2 Sat (Measured) ABG O2 Content ABG Base Excess Alexandro Test O2 Delivery Device Oxygen Flow Rate Vent Mode Vent Rate Mechanical Rate PEEP Pressure Support Vent Sodium 151 H Potassium 4.3 Chloride 120 H Carbon Dioxide 23 Anion Gap 8 BUN 31 H D Creatinine 0.9 POC Glucometer 169.09121 Random Glucose 138 H D Calcium 7.7 L Phosphorus 2.3 L D Magnesium 1.7 L D Troponin I 10/18/16 10/18/16 07:20 13:34 WBC RBC Hgb Hct MCV MCHC RDW Plt Count MPV PTT (Actin FS) Puncture Site Right radial ABG pH 7.45 ABG pCO2 at Pt Temp 30.0 L ABG pO2 at Pt Temp 82.9 ABG HCO3 20.6 L ABG O2 Sat (Measured) 96.5 ABG O2 Content 17.6 ABG Base Excess -1.9 Alexandro Test Positive O2 Delivery Device Vent Oxygen Flow Rate 40% Vent Mode A/c Vent Rate 12 Mechanical Rate Y PEEP 5.0 Pressure Support Vent 500 Sodium Potassium Chloride Carbon Dioxide Anion Gap BUN Creatinine POC Glucometer 264.23924 Random Glucose Calcium Phosphorus Magnesium Troponin I ASSESSMENT AND PLAN: Acute Hypoxic Respiratory Failure Pneumonia Recent Influenza Severe Sepsis Acute Kidney Injury Lactic Acidosis +Troponins - ?Demand Ischemia from Sepsis LV Systolic Heart Failure HTN CAD DM Dementia - CT head - ABX - free water via OGT - monitor urine output, creatinine - ASA, beta regina if BP tolerates - anticoagulation per cardiology - taper Fio2 to keep Spo2 >90% - Hold all sedation to assess mental status - start spontaneous breathing trials as tolerated when mental status improves - enteral feeds - DVT/GI prophylaxis Dr Pruett Critical care time spent in reviewing chart, evaluating patient and formulating plan 35 min
[2016-10-18] MEDS: PROPOFOL 100 ML IVPB SCH (17:37)
--- NOTE | 2016-10-18 19:10 | CON.NEURO ---
Consult Consult Specialty:: Neurology Referred by:: Dr. Arita Reason for Consultation:: Lethargy - History of Present Illness Chief Complaint: Lethargy History of Present Illness: 86 year old man admitted from [facility] with respiratory distress and high fever, intubated, and felt to be septic. Mental status at baseline was consistent with advanced dementia, with poorly interactive state, one word answers, and poor orientation, but when he was improving in his sepsis and tapered off propofol he didn't seem to wake up as quickly as team was concerned that he should have, so we were called in to assess for comorbid neurologic complications. 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 Cardio/Vascular: Yes: HTN - Alcohol/Substance Use Hx Alcohol Use: No - Smoking History Smoking history: Former smoker Have you smoked in the past 12 months: No If you are a former smoker, when did you quit?: 1999 - Social History Usual Living Arrangement: [facility] ADL: Support Services Home Medications - Allergies Allergies/Adverse Reactions: Allergies Allergy/AdvReac Type Severity Reaction Status Date / Time Penicillins Allergy Verified 10/15/16 08:41 - Home Medications Home Medications: Ambulatory Orders Metoprolol Succinate [Toprol XL -] 12.5 mg PO DAILY 03/26/16 Acetaminophen [Tylenol] 650 mg PO Q6H PRN 10/08/16 Amlodipine Besylate [Norvasc -] 2.5 mg PO DAILY 10/08/16 Aspirin [ASA -] 81 mg PO DAILY 10/08/16 Cyanocobalamin Vit B-12 Inj. [Vitamin B12 Injection -] 1,000 mcg IM ASDIR Metformin HCl [Metformin HCl ER] 500 mg PO BID 10/08/16 Albuterol 0.083% Nebulizer Princess [Ventolin 0.083% Nebulizer Soln -] 1 amp [facility] QIDR #20 amp 10/11/16 Review of Systems Unable to obtain ROS, reason: patient is intubated Physical Exam-Neuro Vital Signs: Vital Signs Temperature 97.2 F L 10/18/16 18:15 Pulse Rate 78 10/18/16 18:15 Respiratory Rate 22 10/18/16 18:58 Blood Pressure 138/81 10/18/16 18:15 O2 Sat by Pulse Oximetry (%) 96 10/18/16 10:00 Constitutional: Yes: Calm Respiratory: Yes: Other Labs: CBC, BMP 10/18/16 05:15 10/18/16 05:15 INR, PTT INR 1.24 (0.82-1.09) H 10/15/16 09:16 - Neuro Exam Level Of Consciousness: Yes: Obtunded (opens his eyes to voice and touch but quickly goes back to sleep when not stimulated) Eyes: Yes: Other (pupils reactive, possibly postsurgical, eomi) Speech: Other (nonconversant) DTR's: 0 Left Bicep, 0 Right Bicep, 0 Left Tricep, 0 Right Tricep, 0 Left Brachioradialis, 0 Right Brachioradialis, 0 Left Achilles, 0 Right Achilles Babinski: Absent (both plantar reflexes were normal flexor) Response to light touch: Normal Response to pain prick: Normal Motor Strength: 0/5: Left Arm, Right Arm, Left Leg, Right Leg (little movement observed but more on the right than left side.) Gait: Deferred NIH Stroke Scale - Total Score NIH Stroke Scale Score: 0 Imaging - Results Cat Scan: Report Reviewed, Image Reviewed (no acute stroke or other acute pathology) Problem List - Problems (1) Alzheimer disease Code(s): G30.9 - ALZHEIMER'S DISEASE, UNSPECIFIED Qualifiers: Alzheimer's disease onset: early-onset Dementia behavioral disturbance : without behavioral disturbance Qualified Code(s): G30.0 - Alzheimer's disease with early onset; F02.81 - Dementia in other diseases classified elsewhere with behavioral disturbance (2) Encephalopathy acute Assessment/Plan: Likely due to acute medical illness, in patient with Alzheimer, expect longer recovery time. I would allow more time for him to come back to baseline. I don 't see the need for additional testing at this point, but if he continues to show poor responsiveness we could evaluate other possibilities, such as hepatic , which I don't see as likely at this point. Thanks. Code(s): G93.40 - ENCEPHALOPATHY, UNSPECIFIED (3) Cerebrovascular disease Code(s): I67.9 - CEREBROVASCULAR DISEASE, UNSPECIFIED (4) Cerebrovascular small vessel disease Assessment/Plan: Old left sided lacune, which is not acute, but in setting of acute encephalopathy, probably accounts for his tendency to move this right side more than the left side. Code(s): I67.9 - CEREBROVASCULAR DISEASE, UNSPECIFIED
[2016-10-18] MEDS ORDERED: INSULIN DETEMIR 100 UNITS/ML MDV SQ SCH (20:27)
--- NOTE | 2016-10-18 20:32 | PN ---
Progress Note (short form) - Note Progress Note: CC: s: intubated, off sedation all day but still responds minimally. no overnight events o: Current Medications Acetaminophen (Tylenol Suppository -) 650 mg [place] Q6H PRN PRN Reason: FEVER OR PAIN Last Admin: 10/15/16 18:22 Dose: 650 mg Aspirin (Asa -) 300 mg RC DAILY [facility] Last Admin: 10/18/16 11:00 Dose: 300 mg Chlorhexidine Gluconate (Hibiclens For Decolonization -) 1 applic TP HS [facility] Last Admin: 10/17/16 21:54 Dose: 1 applic Chlorhexidine Gluconate (Peridex -) 15 ml MM BID [facility] Last Admin: 10/18/16 09:05 Dose: 15 ml Heparin Sodium (Porcine) (Heparin -) 1,000 unit IVPUSH PRN PRN PRN Reason: Heparin Last Admin: 10/17/16 10:30 Dose: 1,000 unit Heparin Sodium (Porcine) (Heparin -) 5,000 unit IVPUSH PRN PRN PRN Reason: Heparin Heparin Sodium (Porcine) 25, (000 unit/ Sodium Chloride) 500 mls @ 16 mls/hr IV TITR [facility]; 800 UNIT/HR PRN Reason: Protocol Last Admin: 10/18/16 14:39 Dose: 24 mls/hr Pantoprazole Sodium (Protonix 40mg Ivpb (Pre-Docked)) 100 mls @ 200 mls/hr IVPB DAILY [facility] Last Admin: 10/18/16 09:25 Dose: 200 mls/hr Propofol (Diprivan -) 100 mls @ 2.353 mls/hr IVPB TITR [facility]; 5 MCG/KG/MIN PRN Reason: Protocol Last Admin: 10/18/16 17:37 Dose: Not Given Cefepime HCl 1 gm/ Dextrose 100 mls @ 200 mls/hr IVPB BID [facility] Last Admin: 10/18/16 09:24 Dose: 200 mls/hr Vancomycin HCl 1,250 mg/ (Dextrose) 250 mls @ 166.667 mls/hr IVPB DAILY [facility] PRN Reason: Protocol Last Admin: 10/18/16 12:03 Dose: 166.667 mls/hr Metronidazole (Flagyl 500mg Premixed Ivpb -) 100 mls @ 100 mls/hr IVPB Q8H-IV [facility] Last Admin: 10/18/16 17:40 Dose: 100 mls/hr Insulin Aspart (Novolog Vial Sliding Scale -) 1 vial SQ ACHS [facility] PRN Reason: Protocol Last Admin: 10/18/16 17:46 Dose: 4 units Insulin Detemir (Levemir Vial) 10 units SQ BID [facility] Metoprolol Tartrate (Lopressor Injection -) 2.5 mg IVPUSH Q8H-IV [facility] Last Admin: 10/18/16 17:39 Dose: 2.5 mg Mupirocin (Bactroban Ointment (For Decolonization) -) 1 applic NS BID [facility] Stop: 10/20/16 21:59 Last Admin: 10/18/16 09:25 Dose: 1 applic Vital Signs - 24 hr 10/17/16 10/17/16 10/18/16 21:05 22:00 00:00 Temperature 99.2 F Pulse Rate 95 H 97 H Respiratory 22 23 25 H Rate Blood Pressure 149/95 143/90 O2 Sat by Pulse 96 Oximetry (%) 10/18/16 10/18/16 10/18/16 00:05 02:00 03:00 Temperature Pulse Rate 97 H 95 H Respiratory 23 22 21 Rate Blood Pressure 133/88 146/87 O2 Sat by Pulse Oximetry (%) 10/18/16 10/18/16 10/18/16 04:00 05:30 06:00 Temperature Pulse Rate 97 H 78 Respiratory 25 H 18 14 Rate Blood Pressure 129/85 151/92 O2 Sat by Pulse Oximetry (%) 10/18/16 10/18/16 10/18/16 07:42 08:00 08:12 Temperature 98 F Pulse Rate 85 Respiratory 18 25 H 25 H Rate Blood Pressure 152/92 O2 Sat by Pulse Oximetry (%) 10/18/16 10/18/16 10/18/16 09:06 09:28 10:00 Temperature 93.8 F L Pulse Rate 74 Respiratory 23 23 Rate Blood Pressure 152/92 137/84 O2 Sat by Pulse 96 Oximetry (%) 10/18/16 10/18/16 10/18/16 11:35 13:54 14:00 Temperature 96.9 F L Pulse Rate 77 Respiratory 24 23 24 Rate Blood Pressure 129/75 O2 Sat by Pulse Oximetry (%) 10/18/16 10/18/16 10/18/16 15:30 16:25 17:00 Temperature 97.6 F Pulse Rate 76 50 L Respiratory 23 30 H 22 Rate Blood Pressure 155/85 93/64 O2 Sat by Pulse Oximetry (%) 10/18/16 10/18/16 10/18/16 17:39 18:15 18:58 Temperature 97.2 F L Pulse Rate 90 78 Respiratory 18 22 Rate Blood Pressure 124/83 138/81 O2 Sat by Pulse Oximetry (%) Intake & Output 10/16/16 10/17/16 10/18/16 10/19/16 07:59 07:59 07:59 07:59 Intake Total 7604.6 1264 2423.6 1600 Output Total 3677 199 3404 1050 Balance 6524.6 414 1423.6 550 Weight 169 lb 8 oz 175 lb 1.6 oz 176 lb 12.972 oz intubated, sedated rrr s1s2 no mrg coarse bs anteriorly, vented no jvd pos dp pt no jaundice diaphoresis no le e/c/c abd nd pos bs CBC, BMP 10/18/16 05:15 10/18/16 05:15 tele: sr occ pvcs, recurrent nsvt cxr: bibasilar infiltrates, slight congestion echo 10/2016: sev dilated lv, sev dec lvef, rv mod dilated, mod dec rv fcn, reina , mild mr est cct 36 mins Assessment/Plan acute hypoxic resp failure: -remains intubated -b/l infiltrates on cxr -suspect PNA (hi fever, recent + flu) >> chf -cont abx per ID hi fever, sepsis -hemodynamically stable at present, without need for pressors JULIET: -initial creat 1.9, from 0.9-1.0 prior -? all sepsis related -cr now improved s/p abx, ivfs prior h/o CAD, elevated troponin: -initial trop 3.4, normal ck. Trop now trending down. -florid sepsis picture makes the elevated troponin likely due to sepsis direct myocardial injury, vs Type II IL from hypoxia/tachycardia/? transiently hypotensive in NH -ECG with ischemic changes (TWIs anteriorly)--also could all be secondary to above -cannot definitively rule out acute AWMI based on this ecg, however not likely given changes are improving, not evolving, on serial tracings; -echo here with severe dec lvef -nstemi s/p hep gtt x 72 hrs --> stopping today 10/18, asa pr. no plavix as not taking po meds. -start statin when taking po -cont iv bb for now until able to take po -cont tele -further ischemic eval based on clinical course NSVT: -recurrent brief runs on tele, -replete lytes prn -cont bb, 10/18, will uptitrate dose by increasing frequency. systolic chf, likely chronic: -echo here showing biventricular failure -avoid excess ivfs -currently no sig vol overload -cont bb -when stable, taking po, will start po chf regimen including bb and kathie -further ischemic eval based on clinical course Poor prognosis
[2016-10-18] MEDS: HEPARIN NA (PORCINE) 5,000 UNITS/ML 1ML VIAL SQ SCH (21:32)
[2016-10-18] MEDS: CHLORHEXIDINE GLUCONATE 4% CLEANSER FOR DECOLONIZATION TP SCH (21:33)
[2016-10-19] MEDS: METRONIDAZOLE 500 MG PREMIXED 100 ML IVPB SCH ×3 (02:03→18:30)
[2016-10-19] MEDS: METOPROLOL TARTRATE 5 MG/5 ML VIAL IVPUSH SCH ×3 (03:00→14:34)
[2016-10-19 06:27] LABS: BASOPHIL 0.3 % (0-2.0); EOSINOPHIL 0.4 % (0-4.5); MCH 27.8 pg (25.7-33.7); MCHC 33.2 g/dl (32.0-35.9); MEAN CELL VOLUME 83.9 fl (80-96); MEAN PLT VOLUME 9.1 fl (7.5-11.1); PLATELET COUNT 345 K/MM3 (134-434); RDW 14.6 % (11.9-15.9); WHITE BLOOD COUNT 11.7 K/mm3 (4.0-10.0)
[2016-10-19 06:33] LABS: ALBUMIN 1.5 g/dl (3.4-5.0); ALK PHOS 66 U/L (45-117); ANION GAP 8 (8-16); BILIRUBIN,TOTAL 0.7 mg/dL (0.2-1.0); CALCIUM 7.3 mg/dL (8.5-10.1); CO2 24 mmol/L (21-32); COCKROFT - GAULT 75; CREATININE 0.8 mg/dL (0.7-1.3); GLUCOSE,RANDOM 275 mg/dL (74-106); MAGNESIUM 1.6 mg/dL (1.8-2.4); PHOSPHOROUS 1.9 mg/dL (2.5-4.9); SGOT/AST 18 U/L (15-37); SGPT/ALT 23 U/L (12-78); TOT PROT 5.3 g/dl (6.4-8.2)
[2016-10-19] MEDS ORDERED: INSULIN DETEMIR 100 UNITS/ML MDV SQ SCH (07:00)
[2016-10-19 07:26] LABS: ALLENS TEST POSITIVE; ART PUNCT SITE RIGHT RADIAL; ARTERIAL BLD GAS O2 SATURATION 94.7 % (90-98.9); ARTERIAL BLOOD GAS BASE EXCESS -0.8 meq/l (-2-2); ARTERIAL BLOOD GAS HCO3 21.5 meq/L (22-26); ARTERIAL BLOOD GAS PO2 72.9 mmHg (68-100); PT. ON O2? YES
[2016-10-19 07:27] LABS: LPM/O2% 40%; MECH. VENT. ESPRIT; TYPE OF O2 MEC.VENT; VENT RATE 12; VT/PRESS 500
[2016-10-19] MEDS: INSULIN SLIDING SCALE (NOVOLOG) 1 VIAL SQ SCH ×4 (07:29→17:37)
[2016-10-19] MEDS: INSULIN DETEMIR 100 UNITS/ML MDV SQ SCH ×2 (07:29→17:00)
[2016-10-19] MEDS ORDERED: POTASSIUM PHOSPHATE 30 MM in SODIUM CHLORIDE 250 ML IVPB ONE (07:31)
[2016-10-19] MEDS ORDERED: MAGNESIUM SULF 50% (8.12 MEQ/2 ML-1 GM VIAL) IVPB ONE (07:31)
[2016-10-19 07:32] LABS: ARTERIAL BLOOD GAS pH 7.47 (7.35-7.45)
--- NOTE | 2016-10-19 07:44 | PN ---
Progress Note, Physician Chief Complaint: ID Vancomycin Cefepime Metronidazole Remains intubated - Current Medication List Current Medications: Active Medications Acetaminophen (Tylenol Suppository -) 650 mg [place] Q6H PRN PRN Reason: FEVER OR PAIN Last Admin: 10/15/16 18:22 Dose: 650 mg Aspirin (Asa -) 300 mg RC DAILY [facility] Last Admin: 10/18/16 11:00 Dose: 300 mg Chlorhexidine Gluconate (Hibiclens For Decolonization -) 1 applic TP HS [facility] Last Admin: 10/18/16 21:33 Dose: 1 applic Chlorhexidine Gluconate (Peridex -) 15 ml MM BID [facility] Last Admin: 10/18/16 21:33 Dose: 15 ml Heparin Sodium (Porcine) (Heparin -) 5,000 unit SQ BID [facility] Last Admin: 10/18/16 21:32 Dose: 5,000 unit Pantoprazole Sodium (Protonix 40mg Ivpb (Pre-Docked)) 100 mls @ 200 mls/hr IVPB DAILY [facility] Last Admin: 10/18/16 09:25 Dose: 200 mls/hr Propofol (Diprivan -) 100 mls @ 2.353 mls/hr IVPB TITR [facility]; 5 MCG/KG/MIN PRN Reason: Protocol Last Admin: 10/18/16 17:37 Dose: Not Given Cefepime HCl 1 gm/ Dextrose 100 mls @ 200 mls/hr IVPB BID [facility] Last Admin: 10/18/16 21:33 Dose: 200 mls/hr Vancomycin HCl 1,250 mg/ (Dextrose) 250 mls @ 166.667 mls/hr IVPB DAILY [facility] PRN Reason: Protocol Last Admin: 10/18/16 12:03 Dose: 166.667 mls/hr Metronidazole (Flagyl 500mg Premixed Ivpb -) 100 mls @ 100 mls/hr IVPB Q8H-IV [facility] Last Admin: 10/19/16 02:03 Dose: 100 mls/hr Potassium Phosphate 30 mm/ (Sodium Chloride) 260 mls @ 62.5 mls/hr IVPB ONCE ONE Stop: 10/19/16 11:40 Insulin Aspart (Novolog Vial Sliding Scale -) 1 vial SQ Q6HPO [facility] PRN Reason: Protocol Last Admin: 10/19/16 07:29 Dose: 8 units Insulin Detemir (Levemir Vial) 10 units SQ BIDI [facility] Last Admin: 10/19/16 07:29 Dose: 10 units Metoprolol Tartrate (Lopressor Injection -) 2.5 mg IVPUSH Q6H-IV [facility] Last Admin: 10/19/16 03:00 Dose: 2.5 mg Mupirocin (Bactroban Ointment (For Decolonization) -) 1 applic NS BID [facility] Stop: 10/20/16 21:59 Last Admin: 10/18/16 21:32 Dose: 1 applic - Objective Vital Signs: Vital Signs Temperature 98.3 F 10/19/16 06:00 Pulse Rate 83 10/19/16 06:00 Respiratory Rate 23 10/19/16 06:14 Blood Pressure 165/99 10/19/16 06:00 O2 Sat by Pulse Oximetry (%) 96 10/18/16 22:00 Constitutional: Yes: Other (Intubated) Cardiovascular: Yes: Regular Rate and Rhythm, S1, S2 Respiratory: Yes: WNL, Regular, CTA Bilaterally, Diminished Gastrointestinal: Yes: Soft. No: Tenderness, Tenderness, Epigastrium Edema: No Labs: CBC, BMP 10/19/16 05:15 10/19/16 05:15 INR, PTT INR 1.24 (0.82-1.09) H 10/15/16 09:16 Problem List - Problems (1) Acute respiratory failure with hypoxia Code(s): J96.01 - ACUTE RESPIRATORY FAILURE WITH HYPOXIA (2) Healthcare-associated pneumonia Code(s): J18.9 - PNEUMONIA, UNSPECIFIED ORGANISM (3) Sepsis Code(s): A41.9 - SEPSIS, UNSPECIFIED ORGANISM Qualifiers: Sepsis type: sepsis due to unspecified organism Qualified Code(s): A41.9 - Sepsis, unspecified organism Assessment/Plan Microbiology 10/17/16 15:00 Sputum - Endotrachea Suction/Ventilator Gram Stain - Final 10/15/16 21:00 Urine For Antigen Detection Legionella Antigen - Final 10/15/16 21:00 Urine For Antigen Detection Streptococcus pneumoniae Antigen (M - Final 10/15/16 10:45 Nasopharyngeal Swab Influenza Types A,B Antigen (BRIDGETTE) - Final 10/15/16 10:45 Nasopharyngeal Swab - Final 10/15/16 09:30 Urine - Urine - Catheterized Urine Culture - Final 10/17/16 15:00 Sputum - Endotrachea Suction/Ventilator Sputum Culture - Preliminary Yeast Like Organism 10/15/16 10:45 Nasopharyngeal Swab Respiratory Virus Panel - Preliminary 10/15/16 09:22 Blood - Peripheral Venous Blood Culture - Preliminary NO GROWTH OBTAINED AFTER 72 HOURS, INCUBATION TO CONTINUE FOR 2 DAYS. 10/15/16 09:10 Blood - Peripheral Venous Blood Culture - Preliminary NO GROWTH OBTAINED AFTER 72 HOURS, INCUBATION TO CONTINUE FOR 2 DAYS. Laboratory Tests 10/15/16 10/16/16 10/17/16 09:16 05:20 05:25 WBC 18.7 H D 20.9 H D Hgb Plt Count BUN Creatinine Random Vancomycin 3.851 10/18/16 10/19/16 10/19/16 05:15 05:15 05:15 WBC 13.9 H D 11.7 H Hgb 13.4 Plt Count 345 BUN 26 H Creatinine 0.8 Random Vancomycin Assessment Pneumonia unspecified aspiration mentioned earlier as possible etiology Recent influenza Respiratory failure Dementia Plan As no MRSA stop vancomycin Continue Cefepime and metronidazole now 4 Rx Mariana ALFONSO
--- NOTE | 2016-10-19 09:09 | PN ---
Progress Note (short form) - Note Progress Note: SUBJECTIVE: Patient seen and examined in the ICU. Chart reviewed. Remains intubated. OBJECTIVE: Vital Signs 10/19/16 10/19/16 10/19/16 02:00 03:00 03:38 Temperature 97.8 F Pulse Rate 79 88 Respiratory 27 H 25 H Rate Blood Pressure 151/89 158/75 10/19/16 10/19/16 10/19/16 04:00 06:00 06:14 Temperature 97.8 F 98.3 F Pulse Rate 87 83 Respiratory 23 25 H 23 Rate Blood Pressure 153/85 165/99 10/19/16 10/19/16 09:13 09:33 Temperature Pulse Rate 100 H Respiratory 33 H Rate Blood Pressure 165/96 Intake & Output 10/18/16 10/19/16 10/19/16 23:59 07:59 15:59 Intake Total 1700 920 Output Total 1000 Balance 1700 -80 Weight 80.8 kg Intake: IV 350 Heparin - 25,000 Unit In 350 Normal Saline - 495 ml @ 800 UNIT/HR 16 mls/hr IV TITR [facility] Rx#:[id number] IVPB 450 100 Tube Feeding 400 620 Tube Irrigant 500 200 Output: Urine 1000 Palacio 1000 Other: Voiding Method Indwelling Catheter Bowel Movement No No Weight Measurement Method Built in [facility] Active Medications Acetaminophen (Tylenol Suppository -) 650 mg [place] Q6H PRN PRN Reason: FEVER OR PAIN Last Admin: 10/15/16 18:22 Dose: 650 mg Aspirin (Asa -) 300 mg RC DAILY [facility] Last Admin: 10/19/16 09:14 Dose: 300 mg Chlorhexidine Gluconate (Hibiclens For Decolonization -) 1 applic TP HS [facility] Last Admin: 10/18/16 21:33 Dose: 1 applic Chlorhexidine Gluconate (Peridex -) 15 ml MM BID [facility] Last Admin: 10/19/16 09:17 Dose: 15 ml Heparin Sodium (Porcine) (Heparin -) 5,000 unit SQ BID [facility] Last Admin: 10/19/16 09:13 Dose: 5,000 unit Pantoprazole Sodium (Protonix 40mg Ivpb (Pre-Docked)) 100 mls @ 200 mls/hr IVPB DAILY [facility] Last Admin: 10/19/16 09:12 Dose: 200 mls/hr Propofol (Diprivan -) 100 mls @ 2.353 mls/hr IVPB TITR [facility]; 5 MCG/KG/MIN PRN Reason: Protocol Last Admin: 10/18/16 17:37 Dose: Not Given Cefepime HCl 1 gm/ Dextrose 100 mls @ 200 mls/hr IVPB BID [facility] Last Admin: 10/19/16 09:12 Dose: 200 mls/hr Metronidazole (Flagyl 500mg Premixed Ivpb -) 100 mls @ 100 mls/hr IVPB Q8H-IV [facility] Last Admin: 10/19/16 09:15 Dose: 100 mls/hr Potassium Phosphate 30 mm/ (Sodium Chloride) 260 mls @ 62.5 mls/hr IVPB ONCE ONE Stop: 10/19/16 11:40 Last Admin: 10/19/16 09:13 Dose: 62.5 mls/hr Insulin Aspart (Novolog Vial Sliding Scale -) 1 vial SQ Q6HPO [facility] PRN Reason: Protocol Last Admin: 10/19/16 07:29 Dose: 8 units Insulin Detemir (Levemir Vial) 10 units SQ BIDI [facility] Last Admin: 10/19/16 07:29 Dose: 10 units Metoprolol Tartrate (Lopressor Injection -) 2.5 mg IVPUSH Q6H-IV [facility] Last Admin: 10/19/16 09:13 Dose: 2.5 mg Mupirocin (Bactroban Ointment (For Decolonization) -) 1 applic NS BID [facility] Stop: 10/20/16 21:59 Last Admin: 10/19/16 09:15 Dose: 1 applic CBC, BMP 10/19/16 05:15 10/19/16 05:15 Laboratory Results - last 24 hr 10/18/16 10/18/16 10/18/16 13:34 17:10 22:06 WBC RBC Hgb Hct MCV MCHC RDW Plt Count MPV Neutrophils % Lymphocytes % Monocytes % Eosinophils % Basophils % PTT (Actin FS) Puncture Site ABG pH ABG pCO2 at Pt Temp ABG pO2 at Pt Temp ABG HCO3 ABG O2 Sat (Measured) ABG O2 Content ABG Base Excess Alexandro Test O2 Delivery Device Oxygen Flow Rate Vent Mode Vent Rate Mechanical Rate PEEP Pressure Support Vent Sodium Potassium Chloride Carbon Dioxide Anion Gap BUN Creatinine Creat Clearance w eGFR POC Glucometer 264.96656 250.68409 222.43772 Random Glucose Calcium Phosphorus Magnesium Total Bilirubin AST ALT Alkaline Phosphatase Total Protein Albumin 10/19/16 10/19/16 10/19/16 05:15 05:15 05:15 WBC 11.7 H RBC 4.81 Hgb 13.4 Hct 40.4 MCV 83.9 MCHC 33.2 RDW 14.6 Plt Count 345 MPV 9.1 Neutrophils % 90.0 H Lymphocytes % 4.9 L D Monocytes % 4.4 D Eosinophils % 0.4 D Basophils % 0.3 PTT (Actin FS) 31.3 D Puncture Site ABG pH ABG pCO2 at Pt Temp ABG pO2 at Pt Temp ABG HCO3 ABG O2 Sat (Measured) ABG O2 Content ABG Base Excess Alexandro Test O2 Delivery Device Oxygen Flow Rate Vent Mode Vent Rate Mechanical Rate PEEP Pressure Support Vent Sodium 148 H Potassium 4.2 Chloride 116 H Carbon Dioxide 24 Anion Gap 8 BUN 26 H Creatinine 0.8 Creat Clearance w eGFR > 60 POC Glucometer Random Glucose 275 H D Calcium 7.3 L Phosphorus 1.9 L Magnesium 1.6 L Total Bilirubin 0.7 AST 18 D ALT 23 D Alkaline Phosphatase 66 D Total Protein 5.3 L Albumin 1.5 L 10/19/16 10/19/16 06:48 07:15 WBC RBC Hgb Hct MCV MCHC RDW Plt Count MPV Neutrophils % Lymphocytes % Monocytes % Eosinophils % Basophils % PTT (Actin FS) Puncture Site Right radial ABG pH 7.47 H ABG pCO2 at Pt Temp 30.0 L ABG pO2 at Pt Temp 72.9 ABG HCO3 21.5 L ABG O2 Sat (Measured) 94.7 ABG O2 Content 17.9 ABG Base Excess -0.8 Alexandro Test Positive O2 Delivery Device Mec.vent Oxygen Flow Rate 40% Vent Mode A/c Vent Rate 12 Mechanical Rate Esprit PEEP 5.0 Pressure Support Vent 500 Sodium Potassium Chloride Carbon Dioxide Anion Gap BUN Creatinine Creat Clearance w eGFR POC Glucometer 317.68508 Random Glucose Calcium Phosphorus Magnesium Total Bilirubin AST ALT Alkaline Phosphatase Total Protein Albumin Microbiology 10/15/16 09:22 Blood Culture - Preliminary Blood - Peripheral Venous NO GROWTH OBTAINED AFTER 96 HOURS, INCUBATION TO CONTINUE FOR 1 DAYS. 10/15/16 09:10 Blood Culture - Preliminary Blood - Peripheral Venous NO GROWTH OBTAINED AFTER 96 HOURS, INCUBATION TO CONTINUE FOR 1 DAYS. 04/12/17 15:00 Gram Stain - Final Sputum - Endotrachea Suction/Ventilator Sputum Culture - Preliminary Yeast Like Organism PHYSICAL EXAMINATION: Constitutional: Yes: Intubated. Cardiovascular: Yes: Regular Rate and Rhythm Respiratory: Yes: Diminished Gastrointestinal: Yes: Normal Bowel Sounds, Soft. No: Distention, Tenderness Edema: Yes Edema: LLE: 1+, RLE: 1+ Neurological: Yes: Poorly responsive ASSESSMENT & PLAN: - Remains intubated. - Continue present care. - Antibiotics. - Weaning as tolerated. - Will consult Palliative team also. 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 - Overall condition poor due to multiple co-morbidities. - Will follow. Documentation prepared by Rowan Funes, acting as a medical service representative for Regina Jones MD.
[2016-10-19] MEDS: PANTOPRAZOLE SODIUM 100 ML IVPB SCH (09:12)
[2016-10-19] MEDS: CEFEPIME 1 GM in DEXTROSE 5%-WATER - 100 ML IVPB SCH ×2 (09:12→21:25)
[2016-10-19] MEDS: HEPARIN NA (PORCINE) 5,000 UNITS/ML 1ML VIAL SQ SCH ×2 (09:13→21:24)
[2016-10-19] MEDS: ASPIRIN 300 MG SUPP.RECT RC SCH (09:14)
[2016-10-19] MEDS: MUPIROCIN 2% TOPICAL OINTMENT FOR DECOLONIZATION NS SCH ×2 (09:15→21:23)
[2016-10-19] MEDS: CHLORHEXIDINE GLUCONATE 0.12% 15ML CUP MM SCH ×2 (09:17→21:24)
--- NOTE | 2016-10-19 16:01 | PN ---
Progress Note (short form) - Note Progress Note: Patient seen and examined in the ICU. Remains intubated but off sedation. Moves right arm intermittently with noxious stimuli. No pressors. AC mode of vent. OBJECTIVE: Intake & Output 10/16/16 10/17/16 10/18/16 10/19/16 23:59 23:59 23:59 23:59 Intake Total 3085.6 2168 2919.6 920 Output Total 400 1650 1050 1600 Balance 2685.6 518 1869.6 -680 Weight 169 lb 8 oz 175 lb 1.6 oz 176 lb 12.972 oz 178 lb 2.136 oz Last Vital Signs Temp Pulse Resp BP Pulse Ox 98.3 F 105 H 30 H 165/102 96 10/19/16 06:00 10/19/16 14:34 10/19/16 13:50 10/19/16 14:34 10/18/16 22:00 Active Medications Acetaminophen (Tylenol Suppository -) 650 mg [place] Q6H PRN PRN Reason: FEVER OR PAIN Last Admin: 10/15/16 18:22 Dose: 650 mg Aspirin (Asa -) 300 mg RC DAILY [facility] Last Admin: 10/19/16 09:14 Dose: 300 mg Chlorhexidine Gluconate (Hibiclens For Decolonization -) 1 applic TP HS [facility] Last Admin: 10/18/16 21:33 Dose: 1 applic Chlorhexidine Gluconate (Peridex -) 15 ml MM BID [facility] Last Admin: 10/19/16 09:17 Dose: 15 ml Heparin Sodium (Porcine) (Heparin -) 5,000 unit SQ BID [facility] Last Admin: 10/19/16 09:13 Dose: 5,000 unit Pantoprazole Sodium (Protonix 40mg Ivpb (Pre-Docked)) 100 mls @ 200 mls/hr IVPB DAILY [facility] Last Admin: 10/19/16 09:12 Dose: 200 mls/hr Propofol (Diprivan -) 100 mls @ 2.353 mls/hr IVPB TITR [facility]; 5 MCG/KG/MIN PRN Reason: Protocol Last Admin: 10/18/16 17:37 Dose: Not Given Cefepime HCl 1 gm/ Dextrose 100 mls @ 200 mls/hr IVPB BID [facility] Last Admin: 10/19/16 09:12 Dose: 200 mls/hr Metronidazole (Flagyl 500mg Premixed Ivpb -) 100 mls @ 100 mls/hr IVPB Q8H-IV [facility] Last Admin: 10/19/16 09:15 Dose: 100 mls/hr Insulin Aspart (Novolog Vial Sliding Scale -) 1 vial SQ Q6HPO [facility] PRN Reason: Protocol Last Admin: 10/19/16 12:37 Dose: 10 units Insulin Detemir (Levemir Vial) 10 units SQ BIDI [facility] Last Admin: 10/19/16 07:29 Dose: 10 units Metoprolol Tartrate (Lopressor Injection -) 2.5 mg IVPUSH Q6H-IV [facility] Last Admin: 10/19/16 14:34 Dose: 2.5 mg Mupirocin (Bactroban Ointment (For Decolonization) -) 1 applic NS BID [facility] Stop: 10/20/16 21:59 Last Admin: 10/19/16 09:15 Dose: 1 applic Gen: intubated, minimal response Heart: tachycardic, regular Lung: scattered rhonchi Abd: soft, nontender Ext: no edema Laboratory Results - last 24 hr 10/18/16 10/18/16 10/19/16 17:10 22:06 05:15 WBC RBC Hgb Hct MCV MCHC RDW Plt Count MPV Neutrophils % Lymphocytes % Monocytes % Eosinophils % Basophils % PTT (Actin FS) 31.3 D Puncture Site ABG pH ABG pCO2 at Pt Temp ABG pO2 at Pt Temp ABG HCO3 ABG O2 Sat (Measured) ABG O2 Content ABG Base Excess Alexandro Test O2 Delivery Device Oxygen Flow Rate Vent Mode Vent Rate Mechanical Rate PEEP Pressure Support Vent Sodium Potassium Chloride Carbon Dioxide Anion Gap BUN Creatinine Creat Clearance w eGFR POC Glucometer 250.61197 222.55946 Random Glucose Calcium Phosphorus Magnesium Total Bilirubin AST ALT Alkaline Phosphatase Total Protein Albumin 10/19/16 10/19/16 10/19/16 05:15 05:15 06:48 WBC 11.7 H RBC 4.81 Hgb 13.4 Hct 40.4 MCV 83.9 MCHC 33.2 RDW 14.6 Plt Count 345 MPV 9.1 Neutrophils % 90.0 H Lymphocytes % 4.9 L D Monocytes % 4.4 D Eosinophils % 0.4 D Basophils % 0.3 PTT (Actin FS) Puncture Site ABG pH ABG pCO2 at Pt Temp ABG pO2 at Pt Temp ABG HCO3 ABG O2 Sat (Measured) ABG O2 Content ABG Base Excess Alexandro Test O2 Delivery Device Oxygen Flow Rate Vent Mode Vent Rate Mechanical Rate PEEP Pressure Support Vent Sodium 148 H Potassium 4.2 Chloride 116 H Carbon Dioxide 24 Anion Gap 8 BUN 26 H Creatinine 0.8 Creat Clearance w eGFR > 60 POC Glucometer [phone] Random Glucose 275 H D Calcium 7.3 L Phosphorus 1.9 L Magnesium 1.6 L Total Bilirubin 0.7 AST 18 D ALT 23 D Alkaline Phosphatase 66 D Total Protein 5.3 L Albumin 1.5 L 10/19/16 07:15 WBC RBC Hgb Hct MCV MCHC RDW Plt Count MPV Neutrophils % Lymphocytes % Monocytes % Eosinophils % Basophils % PTT (Actin FS) Puncture Site Right radial ABG pH 7.47 H ABG pCO2 at Pt Temp 30.0 L ABG pO2 at Pt Temp 72.9 ABG HCO3 21.5 L ABG O2 Sat (Measured) 94.7 ABG O2 Content 17.9 ABG Base Excess -0.8 Alexandro Test Positive O2 Delivery Device Mec.vent Oxygen Flow Rate 40% Vent Mode A/c Vent Rate 12 Mechanical Rate Esprit PEEP 5.0 Pressure Support Vent 500 Sodium Potassium Chloride Carbon Dioxide Anion Gap BUN Creatinine Creat Clearance w eGFR POC Glucometer Random Glucose Calcium Phosphorus Magnesium Total Bilirubin AST ALT Alkaline Phosphatase Total Protein Albumin ASSESSMENT AND PLAN: Acute Hypoxic Respiratory Failure Pneumonia Recent Influenza Severe Sepsis Acute Kidney Injury Lactic Acidosis +Troponins - ?Demand Ischemia from Sepsis LV Systolic Heart Failure HTN CAD DM Dementia - ABX - free water via OGT - monitor urine output, creatinine - ASA, beta regina if BP tolerates - taper Fio2 to keep Spo2 >90% - Hold all sedation to assess mental status - spontaneous breathing trials as tolerated when mental status improves - enteral feeds - DVT/GI prophylaxis - Will need family discussions for GOC Dr Pruett Critical care time spent in reviewing chart, evaluating patient and formulating plan 35 min
[2016-10-19] MEDS ORDERED: METOPROLOL TARTRATE 5 MG/5 ML VIAL IVPUSH ONE ×2 (16:16→18:00)
[2016-10-19] MEDS ORDERED: METOPROLOL TARTRATE 5 MG/5 ML VIAL ONE (16:17)
[2016-10-19] MEDS: PROPOFOL 100 ML IVPB SCH ×2 (16:25→21:00)
--- NOTE | 2016-10-19 16:38 | PN ---
Progress Note (short form) - Note Progress Note: Mr Starr remains lethargic, intubated. He alerts by opening eyes to voice and touch but does not stay aroused and closes his eyes briefly after opening. No new focality. My impression remains that this is an encephalopathy due to his medical deterioration, aggravated by his baseline dementia. Problem List - Problems (1) Alzheimer disease Code(s): G30.9 - ALZHEIMER'S DISEASE, UNSPECIFIED Qualifiers: Alzheimer's disease onset: early-onset Dementia behavioral disturbance : without behavioral disturbance Qualified Code(s): G30.0 - Alzheimer's disease with early onset; F02.81 - Dementia in other diseases classified elsewhere with behavioral disturbance (2) Encephalopathy acute Code(s): G93.40 - ENCEPHALOPATHY, UNSPECIFIED (3) Cerebrovascular disease Code(s): I67.9 - CEREBROVASCULAR DISEASE, UNSPECIFIED (4) Cerebrovascular small vessel disease Code(s): I67.9 - CEREBROVASCULAR DISEASE, UNSPECIFIED
[2016-10-19] MEDS ORDERED: amLODIPine BESYLATE 10 MG TABLET (FP) PO ONE (18:02)
[2016-10-19 18:47] LABS: MAGNESIUM 2.1 mg/dL (1.8-2.4); PHOSPHOROUS 2.7 mg/dL (2.5-4.9)
[2016-10-19] MEDS ORDERED: hydrALAZINE HCL 20 MG/ML VIAL IVPUSH ONE (19:09)
[2016-10-19 19:45] LABS: ALLENS TEST POSITIVE; ART PUNCT SITE RIGHT RADIAL; ARTERIAL BLD GAS O2 SATURATION 96.3 % (90-98.9); ARTERIAL BLOOD GAS BASE EXCESS -0.8 meq/l (-2-2); ARTERIAL BLOOD GAS HCO3 22.3 meq/L (22-26); ARTERIAL BLOOD GAS PO2 88.5 mmHg (68-100); ARTERIAL BLOOD GAS pH 7.43 (7.35-7.45); LPM/O2% 60%; MECH. VENT. YES; PT. ON O2? YES; TYPE OF O2 MECH VENT
[2016-10-19 19:46] LABS: VENT RATE 12; VT/PRESS 500
[2016-10-19] MEDS: CARVEDILOL 3.125 MG TABLET (FP) PO SCH (21:24)
[2016-10-19] MEDS: CHLORHEXIDINE GLUCONATE 4% CLEANSER FOR DECOLONIZATION TP SCH (21:24)
[2016-10-19] MEDS ORDERED: PT OWN MED DRAWER 7, Y5N ONE (21:31)
[2016-10-19] MEDS: ACETAMINOPHEN 650 MG SUPP.RECT PR PRN (22:00)
[2016-10-20] MEDS: PROPOFOL 100 ML IVPB SCH ×2 (00:12→18:16)
[2016-10-20] MEDS: INSULIN SLIDING SCALE (NOVOLOG) 1 VIAL SQ SCH ×4 (00:13→17:22)
[2016-10-20] MEDS: METRONIDAZOLE 500 MG PREMIXED 100 ML IVPB SCH (01:23)
[2016-10-20] MEDS ORDERED: hydrALAZINE HCL 20 MG/ML VIAL IM ONE (02:15)
[2016-10-20 06:31] LABS: BASOPHIL 0.1 % (0-2.0); EOSINOPHIL 0.1 % (0-4.5); MCH 27.9 pg (25.7-33.7); MEAN CELL VOLUME 84.7 fl (80-96); MEAN PLT VOLUME 8.9 fl (7.5-11.1); NEUTROPHILS 92.1 % (42.8-82.8); PLATELET COUNT 341 K/MM3 (134-434); RDW 14.6 % (11.9-15.9); WHITE BLOOD COUNT 18.1 K/mm3 (4.0-10.0)
[2016-10-20] MEDS: INSULIN DETEMIR 100 UNITS/ML MDV SQ SCH ×2 (06:43→17:21)
[2016-10-20 06:53] LABS: CALCIUM 7.3 mg/dL (8.5-10.1)
[2016-10-20 06:54] LABS: COCKROFT - GAULT 54.78; CREATININE 1.1 mg/dL (0.7-1.3)
--- NOTE | 2016-10-20 07:48 | PN ---
Progress Note, Physician Chief Complaint: ID Cefepime and metronidazole Fevers despite antibiotics - Current Medication List Current Medications: Active Medications Acetaminophen (Tylenol Suppository -) 650 mg [place] Q6H PRN PRN Reason: FEVER OR PAIN Last Admin: 10/19/16 22:00 Dose: 650 mg Aspirin (Asa -) 300 mg RC DAILY [facility] Last Admin: 10/19/16 09:14 Dose: 300 mg Carvedilol (Coreg -) 3.125 mg PO BID [facility] Last Admin: 10/19/16 21:24 Dose: 3.125 mg Chlorhexidine Gluconate (Hibiclens For Decolonization -) 1 applic TP HS [facility] Last Admin: 10/19/16 21:24 Dose: 1 applic Chlorhexidine Gluconate (Peridex -) 15 ml MM BID [facility] Last Admin: 10/19/16 21:24 Dose: 15 ml Heparin Sodium (Porcine) (Heparin -) 5,000 unit SQ BID [facility] Last Admin: 10/19/16 21:24 Dose: 5,000 unit Pantoprazole Sodium (Protonix 40mg Ivpb (Pre-Docked)) 100 mls @ 200 mls/hr IVPB DAILY [facility] Last Admin: 10/19/16 09:12 Dose: 200 mls/hr Propofol (Diprivan -) 100 mls @ 2.353 mls/hr IVPB TITR [facility]; 5 MCG/KG/MIN PRN Reason: Protocol Last Titration: 10/19/16 22:00 Dose: 40 mcg/kg/min Cefepime HCl 1 gm/ Dextrose 100 mls @ 200 mls/hr IVPB BID [facility] Last Admin: 10/19/16 21:25 Dose: 200 mls/hr Metronidazole (Flagyl 500mg Premixed Ivpb -) 100 mls @ 100 mls/hr IVPB Q8H-IV [facility] Last Admin: 10/20/16 01:23 Dose: 100 mls/hr Propofol (Diprivan -) 100 mls @ 2.424 mls/hr IVPB TITR [facility]; 5 MCG/KG/MIN PRN Reason: Protocol Last Admin: 10/20/16 00:12 Dose: 19.4 mls/hr Insulin Aspart (Novolog Vial Sliding Scale -) 1 vial SQ Q6HPO [facility] PRN Reason: Protocol Last Admin: 10/20/16 06:43 Dose: 2 units Insulin Detemir (Levemir Vial) 10 units SQ BIDI [facility] Last Admin: 10/20/16 06:43 Dose: 10 units Mupirocin (Bactroban Ointment (For Decolonization) -) 1 applic NS BID [facility] Stop: 10/20/16 21:59 Last Admin: 10/19/16 21:23 Dose: 1 applic - Objective Vital Signs: Vital Signs Temperature 100.3 F H 10/20/16 06:00 Pulse Rate 100 H 10/20/16 06:00 Respiratory Rate 23 10/20/16 06:00 Blood Pressure 97/61 10/20/16 06:00 O2 Sat by Pulse Oximetry (%) 94 L 10/19/16 22:00 Cardiovascular: Yes: S1, S2 Respiratory: Yes: WNL, Regular, CTA Bilaterally. No: Rhonchi Gastrointestinal: Yes: WNL, Normal Bowel Sounds, Soft. No: Tenderness Edema: No Labs: CBC, BMP 10/20/16 05:35 10/20/16 05:35 INR, PTT INR 1.24 (0.82-1.09) H 10/15/16 09:16 Problem List - Problems (1) Acute respiratory failure with hypoxia Code(s): J96.01 - ACUTE RESPIRATORY FAILURE WITH HYPOXIA (2) Healthcare-associated pneumonia Code(s): J18.9 - PNEUMONIA, UNSPECIFIED ORGANISM (3) Sepsis Code(s): A41.9 - SEPSIS, UNSPECIFIED ORGANISM Qualifiers: Sepsis type: sepsis due to unspecified organism Qualified Code(s): A41.9 - Sepsis, unspecified organism Assessment/Plan Microbiology 10/17/16 15:00 Sputum - Endotrachea Suction/Ventilator Gram Stain - Final 10/17/16 15:00 Sputum - Endotrachea Suction/Ventilator Sputum Culture - Final Yeast Like Organism 10/15/16 21:00 Urine For Antigen Detection Legionella Antigen - Final 10/15/16 21:00 Urine For Antigen Detection Streptococcus pneumoniae Antigen (M - Final 10/15/16 10:45 Nasopharyngeal Swab Influenza Types A,B Antigen (BRIDGETTE) - Final 10/15/16 10:45 Nasopharyngeal Swab - Final 10/15/16 09:30 Urine - Urine - Catheterized Urine Culture - Final 10/15/16 10:45 Nasopharyngeal Swab Respiratory Virus Panel - Preliminary 10/15/16 09:22 Blood - Peripheral Venous Blood Culture - Preliminary NO GROWTH OBTAINED AFTER 96 HOURS, INCUBATION TO CONTINUE FOR 1 DAYS. 10/15/16 09:10 Blood - Peripheral Venous Blood Culture - Preliminary NO GROWTH OBTAINED AFTER 96 HOURS, INCUBATION TO CONTINUE FOR 1 DAYS. Laboratory Tests 10/20/16 10/20/16 05:35 05:35 WBC 18.1 H D Hgb 13.2 Plt Count 341 BUN 32 H D Creatinine 1.1 D Assessment Respiratory failure Sepsis Recent influenza Fever and leukocytosis despite broad spectrum antibiotics for 5 days Plan Stop antibiotic now and reculture in 24hours off therapy Mariana ALFONSO
[2016-10-20 07:51] LABS: ALLENS TEST POSITIVE; ART PUNCT SITE RIGHT RADIAL; ARTERIAL BLD GAS O2 SATURATION 97.4 % (90-98.9); ARTERIAL BLOOD GAS BASE EXCESS -0.2 meq/l (-2-2); ARTERIAL BLOOD GAS HCO3 22.8 meq/L (22-26); ARTERIAL BLOOD GAS PO2 98.9 mmHg (68-100); ARTERIAL BLOOD GAS pH 7.44 (7.35-7.45)
[2016-10-20 07:52] LABS: LPM/O2% 60%; MECH. VENT. YES; PT. ON O2? YES; TYPE OF O2 MECH VENT; VENT RATE 12; VT/PRESS 500
--- NOTE | 2016-10-20 10:13 | PN ---
Progress Note (short form) - Note Progress Note: PULMONARY/CCM Pt seen and examined in the ICU. Remains intubated, sedated. Febrile overnight. Vented on volume assist control with 60% FiO2. Last Vital Signs Temp Pulse Resp BP Pulse Ox 100 F H 103 H 27 H 104/68 98 10/20/16 08:00 10/20/16 08:00 10/20/16 10:00 10/20/16 08:00 10/20/16 08:00 Intake & Output 10/17/16 10/18/16 10/19/16 10/20/16 23:59 23:59 23:59 23:59 Intake Total 2168 2919.6 2952 1850 Output Total 1650 1050 1600 700 Balance 518 1869.6 1352 1150 Weight 175 lb 1.6 oz 176 lb 12.972 oz 178 lb 2.136 oz 177 lb 2.136 oz Gen: intubated, sedated Heart: tachycardic, regular Lung: scattered rhonchi Abd: soft, nontender Ext: trace edema CBC, BMP 10/20/16 05:35 10/20/16 05:35 Active Medications Acetaminophen (Tylenol Suppository -) 650 mg IN Q6H PRN PRN Reason: FEVER OR PAIN Last Admin: 10/19/16 22:00 Dose: 650 mg Aspirin (Asa -) 300 mg RC DAILY [facility] Last Admin: 10/19/16 09:14 Dose: 300 mg Carvedilol (Coreg -) 3.125 mg PO BID [facility] Last Admin: 10/19/16 21:24 Dose: 3.125 mg Chlorhexidine Gluconate (Hibiclens For Decolonization -) 1 applic TP HS [facility] Last Admin: 10/19/16 21:24 Dose: 1 applic Chlorhexidine Gluconate (Peridex -) 15 ml MM BID [facility] Last Admin: 10/19/16 21:24 Dose: 15 ml Heparin Sodium (Porcine) (Heparin -) 5,000 unit SQ BID [facility] Last Admin: 10/19/16 21:24 Dose: 5,000 unit Pantoprazole Sodium (Protonix 40mg Ivpb (Pre-Docked)) 100 mls @ 200 mls/hr IVPB DAILY [facility] Last Admin: 10/19/16 09:12 Dose: 200 mls/hr Propofol (Diprivan -) 100 mls @ 2.353 mls/hr IVPB TITR [facility]; 5 MCG/KG/MIN PRN Reason: Protocol Last Titration: 10/19/16 22:00 Dose: 40 mcg/kg/min Propofol (Diprivan -) 100 mls @ 2.424 mls/hr IVPB TITR [facility]; 5 MCG/KG/MIN PRN Reason: Protocol Last Admin: 10/20/16 00:12 Dose: 19.4 mls/hr Insulin Aspart (Novolog Vial Sliding Scale -) 1 vial SQ Q6HPO [facility] PRN Reason: Protocol Last Admin: 10/20/16 06:43 Dose: 2 units Insulin Detemir (Levemir Vial) 10 units SQ BIDI [facility] Last Admin: 10/20/16 06:43 Dose: 10 units Mupirocin (Bactroban Ointment (For Decolonization) -) 1 applic NS BID [facility] Stop: 10/20/16 21:59 Last Admin: 10/19/16 21:23 Dose: 1 applic A/P Acute Hypoxic Respiratory Failure Pneumonia Recent Influenza Severe Sepsis Acute Kidney Injury Lactic Acidosis +Troponins - ?Demand Ischemia from Sepsis LV Systolic Heart Failure HTN CAD DM Dementia - continue antibiotics - free water via OGT - monitor urine output, creatinine - ASA, beta regina if BP tolerates - anticoagulation per cardiology - taper Fio2 to keep Spo2 >90% - minimize sedation to assess mental status - start spontaneous breathing trials as tolerated when mental status improves - enteral feeds - DVT/GI prophylaxis - ICU monitoring critical care time spent in reviewing chart, evaluating patient and formulating plan 40 min
[2016-10-20] MEDS: MUPIROCIN 2% TOPICAL OINTMENT FOR DECOLONIZATION NS SCH (10:42)
[2016-10-20] MEDS: ASPIRIN 300 MG SUPP.RECT RC SCH (10:42)
[2016-10-20] MEDS: PANTOPRAZOLE SODIUM 100 ML IVPB SCH (10:43)
[2016-10-20] MEDS: CARVEDILOL 3.125 MG TABLET (FP) PO SCH (10:43)
[2016-10-20] MEDS: CHLORHEXIDINE GLUCONATE 0.12% 15ML CUP MM SCH ×2 (10:43→22:00)
[2016-10-20] MEDS: HEPARIN NA (PORCINE) 5,000 UNITS/ML 1ML VIAL SQ SCH ×2 (10:43→22:00)
--- NOTE | 2016-10-20 11:23 | PN ---
Progress Note (short form) - Note Progress Note: Pt seen/ examined in icu Remains intubated Being weaned off sedation opens eyes on calling names continue to have fever Vital Signs Temp 100 F H 10/20/16 08:00 Pulse 103 H 10/20/16 08:00 Resp 27 H 10/20/16 10:00 BP 104/68 10/20/16 08:00 Pulse Ox 98 10/20/16 08:00 Intake & Output 10/19/16 10/19/16 10/20/16 11:59 23:59 11:59 Intake Total 920 2032 1850 Output Total 1000 600 700 Balance -80 1432 1150 Weight 178 lb 2.136 oz 177 lb 2.136 oz Intake: IVPB 100 450 200 Tube Feeding 620 682 750 Tube Irrigant 200 900 900 Output: Urine 1000 600 700 Palacio 1000 600 700 Other: Voiding Method Indwelling Catheter Indwelling Catheter Bowel Movement No No No Weight Measurement Method Built in Bedscale Built in Bedscale Active Medications Acetaminophen (Tylenol Suppository -) 650 mg [place] Q6H PRN PRN Reason: FEVER OR PAIN Last Admin: 10/19/16 22:00 Dose: 650 mg Aspirin (Asa -) 300 mg RC DAILY [facility] Last Admin: 10/20/16 10:42 Dose: 300 mg Atorvastatin Calcium (Lipitor -) 40 mg PO HS [facility] Chlorhexidine Gluconate (Hibiclens For Decolonization -) 1 applic TP HS [facility] Last Admin: 10/19/16 21:24 Dose: 1 applic Chlorhexidine Gluconate (Peridex -) 15 ml MM BID [facility] Last Admin: 10/20/16 10:43 Dose: 15 ml Heparin Sodium (Porcine) (Heparin -) 5,000 unit SQ BID [facility] Last Admin: 10/20/16 10:43 Dose: 5,000 unit Pantoprazole Sodium (Protonix 40mg Ivpb (Pre-Docked)) 100 mls @ 200 mls/hr IVPB DAILY [facility] Last Admin: 10/20/16 10:43 Dose: 200 mls/hr Propofol (Diprivan -) 100 mls @ 2.353 mls/hr IVPB TITR [facility]; 5 MCG/KG/MIN PRN Reason: Protocol Last Titration: 10/19/16 22:00 Dose: 40 mcg/kg/min Propofol (Diprivan -) 100 mls @ 2.424 mls/hr IVPB TITR [facility]; 5 MCG/KG/MIN PRN Reason: Protocol Last Admin: 10/20/16 00:12 Dose: 19.4 mls/hr Insulin Aspart (Novolog Vial Sliding Scale -) 1 vial SQ Q6HPO [facility] PRN Reason: Protocol Last Admin: 10/20/16 06:43 Dose: 2 units Insulin Detemir (Levemir Vial) 10 units SQ BIDI [facility] Last Admin: 10/20/16 06:43 Dose: 10 units Metoprolol Tartrate (Lopressor -) 12.5 mg PO TID [facility] Mupirocin (Bactroban Ointment (For Decolonization) -) 1 applic NS BID [facility] Stop: 10/20/16 21:59 Last Admin: 10/20/16 10:42 Dose: 1 applic CBC, BMP 10/20/16 05:35 10/20/16 05:35 cxr -- no change PHYSICAL EXAMINATION: Constitutional: Yes: Intubated./ Cardiovascular: Yes: Regular Rate and Rhythm Respiratory: Yes: bilateral breath sounds anteriorly Gastrointestinal: Yes: Normal Bowel Sounds, Soft. No: Distention, Tenderness Edema: Yes Edema: LLE: 1+, RLE: 1+ Neurological: Yes: Opens eyes ASSESSMENT & PLAN: - continue to have fever - elevated wbc --Remains intubated. - - Antibiotics per i/d - Weaning as tolerated. 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 - Overall condition poor due to multiple co-morbidities. - Will follow. - continue present care --discussed with icu attending / nursing staff
--- NOTE | 2016-10-20 11:27 | PN ---
Progress Note (short form) - Note Progress Note: Pt seen/ examined in icu Remains intubated Being weaned off sedation opens eyes on calling names continue to have fever Vital Signs Temp 100 F H 10/20/16 08:00 Pulse 103 H 10/20/16 08:00 Resp 27 H 10/20/16 10:00 BP 104/68 10/20/16 08:00 Pulse Ox 98 10/20/16 08:00 Intake & Output 10/19/16 10/19/16 10/20/16 11:59 23:59 11:59 Intake Total 920 2032 1850 Output Total 1000 600 700 Balance -80 1432 1150 Weight 178 lb 2.136 oz 177 lb 2.136 oz Intake: IVPB 100 450 200 Tube Feeding 620 682 750 Tube Irrigant 200 900 900 Output: Urine 1000 600 700 Palacio 1000 600 700 Other: Voiding Method Indwelling Catheter Indwelling Catheter Bowel Movement No No No Weight Measurement Method Built in Bedscale Built in Bedscale Active Medications Acetaminophen (Tylenol Suppository -) 650 mg [place] Q6H PRN PRN Reason: FEVER OR PAIN Last Admin: 10/19/16 22:00 Dose: 650 mg Aspirin (Asa -) 300 mg RC DAILY [facility] Last Admin: 10/20/16 10:42 Dose: 300 mg Atorvastatin Calcium (Lipitor -) 40 mg PO HS [facility] Chlorhexidine Gluconate (Hibiclens For Decolonization -) 1 applic TP HS [facility] Last Admin: 10/19/16 21:24 Dose: 1 applic Chlorhexidine Gluconate (Peridex -) 15 ml MM BID [facility] Last Admin: 10/20/16 10:43 Dose: 15 ml Heparin Sodium (Porcine) (Heparin -) 5,000 unit SQ BID [facility] Last Admin: 10/20/16 10:43 Dose: 5,000 unit Pantoprazole Sodium (Protonix 40mg Ivpb (Pre-Docked)) 100 mls @ 200 mls/hr IVPB DAILY [facility] Last Admin: 10/20/16 10:43 Dose: 200 mls/hr Propofol (Diprivan -) 100 mls @ 2.353 mls/hr IVPB TITR [facility]; 5 MCG/KG/MIN PRN Reason: Protocol Last Titration: 10/19/16 22:00 Dose: 40 mcg/kg/min Propofol (Diprivan -) 100 mls @ 2.424 mls/hr IVPB TITR [facility]; 5 MCG/KG/MIN PRN Reason: Protocol Last Admin: 10/20/16 00:12 Dose: 19.4 mls/hr Insulin Aspart (Novolog Vial Sliding Scale -) 1 vial SQ Q6HPO [facility] PRN Reason: Protocol Last Admin: 10/20/16 06:43 Dose: 2 units Insulin Detemir (Levemir Vial) 10 units SQ BIDI [facility] Last Admin: 10/20/16 06:43 Dose: 10 units Metoprolol Tartrate (Lopressor -) 12.5 mg PO TID [facility] Mupirocin (Bactroban Ointment (For Decolonization) -) 1 applic NS BID [facility] Stop: 10/20/16 21:59 Last Admin: 10/20/16 10:42 Dose: 1 applic CBC, BMP 10/20/16 05:35 10/20/16 05:35 cxr -- no change PHYSICAL EXAMINATION: Constitutional: Yes: Intubated./ Cardiovascular: Yes: Regular Rate and Rhythm Respiratory: Yes: bilateral breath sounds anteriorly Gastrointestinal: Yes: Normal Bowel Sounds, Soft. No: Distention, Tenderness Edema: Yes Edema: LLE: 1+, RLE: 1+ Neurological: Yes: Opens eyes ASSESSMENT & PLAN: - continue to have fever - elevated wbc --Remains intubated. - - Antibiotics per i/d - Weaning as tolerated. 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 - Overall condition poor due to multiple co-morbidities. - Will follow. - continue present care --discussed with icu attending / nursing staff Problem List - Problems (1) Acute respiratory failure with hypoxia Code(s): J96.01 - ACUTE RESPIRATORY FAILURE WITH HYPOXIA (2) Cerebrovascular disease Code(s): I67.9 - CEREBROVASCULAR DISEASE, UNSPECIFIED (3) Cerebrovascular small vessel disease Code(s): I67.9 - CEREBROVASCULAR DISEASE, UNSPECIFIED (4) Healthcare-associated pneumonia Code(s): J18.9 - PNEUMONIA, UNSPECIFIED ORGANISM (5) Sepsis Code(s): A41.9 - SEPSIS, UNSPECIFIED ORGANISM Qualifiers: Sepsis type: sepsis due to unspecified organism Qualified Code(s): A41.9 - Sepsis, unspecified organism (6) Alzheimer disease Code(s): G30.9 - ALZHEIMER'S DISEASE, UNSPECIFIED Qualifiers: Alzheimer's disease onset: early-onset Dementia behavioral disturbance : without behavioral disturbance Qualified Code(s): G30.0 - Alzheimer's disease with early onset; F02.81 - Dementia in other diseases classified elsewhere with behavioral disturbance (7) Lactic acid blood increased Code(s): R79.89 - OTHER SPECIFIED ABNORMAL FINDINGS OF BLOOD CHEMISTRY
--- NOTE | 2016-10-20 19:26 | PN ---
Progress Note (short form) - Note Progress Note: Neurology Progress, patient remains intubated, opens eyes to name, but still tends to close them when not repeatedly stimulated. Perhaps slightly more easily aroused than yesterday. No new focality. Continue to address underlying medical issues which are the likely basis of his encephalopathy. THanks. Problem List - Problems (1) Alzheimer disease Code(s): G30.9 - ALZHEIMER'S DISEASE, UNSPECIFIED Qualifiers: Alzheimer's disease onset: early-onset Dementia behavioral disturbance : without behavioral disturbance Qualified Code(s): G30.0 - Alzheimer's disease with early onset; F02.81 - Dementia in other diseases classified elsewhere with behavioral disturbance (2) Encephalopathy acute Code(s): G93.40 - ENCEPHALOPATHY, UNSPECIFIED (3) Cerebrovascular disease Code(s): I67.9 - CEREBROVASCULAR DISEASE, UNSPECIFIED (4) Cerebrovascular small vessel disease Code(s): I67.9 - CEREBROVASCULAR DISEASE, UNSPECIFIED
--- NOTE | 2016-10-20 20:29 | PN ---
Progress Note (short form) - Note Progress Note: CC: nstemi s: no overnight events. bp's lower today on sedation. o: Current Medications Acetaminophen (Tylenol Suppository -) 650 mg [place] Q6H PRN PRN Reason: FEVER OR PAIN Last Admin: 10/19/16 22:00 Dose: 650 mg Aspirin (Asa -) 300 mg RC DAILY [facility] Last Admin: 10/20/16 10:42 Dose: 300 mg Atorvastatin Calcium (Lipitor -) 40 mg PO HS [facility] Chlorhexidine Gluconate (Hibiclens For Decolonization -) 1 applic TP HS [facility] Last Admin: 10/19/16 21:24 Dose: 1 applic Chlorhexidine Gluconate (Peridex -) 15 ml MM BID [facility] Last Admin: 10/20/16 10:43 Dose: 15 ml Heparin Sodium (Porcine) (Heparin -) 5,000 unit SQ BID [facility] Last Admin: 10/20/16 10:43 Dose: 5,000 unit Pantoprazole Sodium (Protonix 40mg Ivpb (Pre-Docked)) 100 mls @ 200 mls/hr IVPB DAILY [facility] Last Admin: 10/20/16 10:43 Dose: 200 mls/hr Propofol (Diprivan -) 100 mls @ 2.353 mls/hr IVPB TITR [facility]; 5 MCG/KG/MIN PRN Reason: Protocol Last Admin: 10/20/16 18:16 Dose: 2.353 mls/hr Propofol (Diprivan -) 100 mls @ 2.424 mls/hr IVPB TITR [facility]; 5 MCG/KG/MIN PRN Reason: Protocol Last Admin: 10/20/16 00:12 Dose: 19.4 mls/hr Insulin Aspart (Novolog Vial Sliding Scale -) 1 vial SQ Q6HPO [facility] PRN Reason: Protocol Last Admin: 10/20/16 17:22 Dose: 4 units Insulin Detemir (Levemir Vial) 10 units SQ BIDI [facility] Last Admin: 10/20/16 17:21 Dose: 10 units Metoprolol Tartrate (Lopressor -) 12.5 mg PO TID [facility] Mupirocin (Bactroban Ointment (For Decolonization) -) 1 applic NS BID [facility] Stop: 10/20/16 21:59 Last Admin: 10/20/16 10:42 Dose: 1 applic Vital Signs Period Temp Pulse Resp BP Sys/Machado Pulse Ox Last 24 Hr 99.2 F-100.9 F 88-122 21-35 92-151/61-95 94-99 Intake & Output 10/18/16 10/19/16 10/20/16 10/21/16 07:59 07:59 07:59 07:59 Intake Total 2423.6 2620 3882 2020 Output Total 1000 2050 1300 400 Balance 1423.6 570 2582 1620 Weight 176 lb 12.972 oz 178 lb 2.136 oz 177 lb 2.136 oz intubated, sedated rrr s1s2 no mrg coarse bs anteriorly, vented. tachypneic no jvd pos dp pt no jaundice diaphoresis no le e/c/c abd nd pos bs CBC, BMP 10/20/16 05:35 10/20/16 05:35 tele: sr occ pvcs, pac's. one episode of nsvt cxr: bibasilar infiltrates, slight congestion echo 10/2016: sev dilated lv, sev dec lvef, rv mod dilated, mod dec rv fcn, reina , mild mr est cct 36 mins 10/20 cxr: unchanged. Assessment/Plan HTN - briefly hypertensive when off sedation. Now bp's running low again on propafol. Monitor on low dose beta regina acute hypoxic resp failure: -remains intubated -b/l infiltrates on cxr -suspect PNA (hi fever, recent + flu) >> chf. -cont abx per ID - 10/20: unclear if mental status or respiratory status limiting extubation hi fever, sepsis -hemodynamically stable at present, without need for pressors JULIET: -initial creat 1.9, from 0.9-1.0 prior -? all sepsis related -cr now improved s/p abx, ivfs prior h/o CAD, elevated troponin: -initial trop 3.4, normal ck. Trop now trending down. -florid sepsis picture makes the elevated troponin likely due to sepsis direct myocardial injury, vs Type II SD from hypoxia/tachycardia/? transiently hypotensive in [place] -ECG with ischemic changes (TWIs anteriorly)--also could all be secondary to above -cannot definitively rule out acute AWMI based on this ecg, however not likely given changes are improving, not evolving, on serial tracings; -echo here with severe dec lvef -nstemi s/p hep gtt x 72 hrs --> stopping today 10/18, was off plavix while not taking po meds, con't to hold in light of clinical status. con't asa. -start statin and po bb, -cont tele -further ischemic eval based on clinical course NSVT: -intermittent recurrent brief runs on tele, -replete lytes prn -cont bb, 10/18, will uptitrate dose by increasing frequency. - 10/20: switching to po bb regimen. systolic chf, likely chronic: -echo here showing biventricular failure -currently no sig vol overload, cxr unchanged. -cont bb, start ACEI when bp tolerates -further ischemic eval based on clinical course Poor prognosis
[2016-10-20] MEDS ORDERED: METOPROLOL TARTRATE 5 MG/5 ML VIAL IVPUSH SCH (22:00)
[2016-10-20] MEDS: CHLORHEXIDINE GLUCONATE 4% CLEANSER FOR DECOLONIZATION TP SCH (22:00)
[2016-10-20] MEDS: ATORVASTATIN CA 40 MG TABLET (FP) PO SCH (22:00)
[2016-10-20] MEDS: METOPROLOL TARTRATE 25 MG TABLET (FP) PO SCH (22:00)
[2016-10-21] MEDS: PROPOFOL 100 ML IVPB SCH ×3 (00:15→16:00)
[2016-10-21] MEDS: INSULIN SLIDING SCALE (NOVOLOG) 1 VIAL SQ SCH ×4 (00:16→17:03)
[2016-10-21 06:23] LABS: BASOPHIL 0.2 % (0-2.0); EOSINOPHIL 1.1 % (0-4.5); MCH 27.6 pg (25.7-33.7); MCHC 32.6 g/dl (32.0-35.9); MEAN CELL VOLUME 84.5 fl (80-96); MEAN PLT VOLUME 9.4 fl (7.5-11.1); NEUTROPHILS 89.4 % (42.8-82.8); PLATELET COUNT 320 K/MM3 (134-434); RDW 14.7 % (11.9-15.9); WHITE BLOOD COUNT 18.8 K/mm3 (4.0-10.0)
[2016-10-21] MEDS: INSULIN DETEMIR 100 UNITS/ML MDV SQ SCH ×2 (06:38→16:48)
[2016-10-21] MEDS: METOPROLOL TARTRATE 25 MG TABLET (FP) PO SCH ×3 (06:38→22:46)
[2016-10-21 06:52] LABS: ALBUMIN 1.4 g/dl (3.4-5.0); ALK PHOS 103 U/L (45-117); ANION GAP 7 (8-16); BILIRUBIN,TOTAL 0.4 mg/dL (0.2-1.0); CALCIUM 7.6 mg/dL (8.5-10.1); CO2 26 mmol/L (21-32); COCKROFT - GAULT 75.01; CREATININE 0.8 mg/dL (0.7-1.3); GLUCOSE,RANDOM 222 mg/dL (74-106); MAGNESIUM 2.1 mg/dL (1.8-2.4); PHOSPHOROUS 2.2 mg/dL (2.5-4.9); SGOT/AST 26 U/L (15-37); SGPT/ALT 23 U/L (12-78); TOT PROT 4.9 g/dl (6.4-8.2)
[2016-10-21 07:44] LABS: ARTERIAL BLD GAS O2 SATURATION 95.2 % (90-98.9); ARTERIAL BLOOD GAS BASE EXCESS 0.5 meq/l (-2-2); ARTERIAL BLOOD GAS HCO3 23.6 meq/L (22-26); ARTERIAL BLOOD GAS PO2 74.8 mmHg (68-100); ARTERIAL BLOOD GAS pH 7.45 (7.35-7.45)
[2016-10-21 07:49] LABS: ALLENS TEST POSITIVE; ART PUNCT SITE RIGHT RADIAL; PT. ON O2? YES
[2016-10-21 07:50] LABS: LPM/O2% 50%; MECH. VENT. ESPRIT; TYPE OF O2 MEC.VENT; VENT RATE 12; VT/PRESS 500
--- NOTE | 2016-10-21 08:00 | PN ---
Progress Note, Physician Chief Complaint: ID Yesterday taken off antibiotics becasue of persistant WBC elevation and fever despite Cefepime All cultures no growth except yeast in the sputum Recent influenza illness T max 100.6 - Current Medication List Current Medications: Active Medications Acetaminophen (Tylenol Suppository -) 650 mg [place] Q6H PRN PRN Reason: FEVER OR PAIN Last Admin: 10/19/16 22:00 Dose: 650 mg Aspirin (Asa -) [address] [facility] Last Admin: 10/20/16 10:42 Dose: 300 mg Atorvastatin Calcium (Lipitor -) [address] [facility] Last Admin: 10/20/16 22:00 Dose: 40 mg Chlorhexidine Gluconate (Hibiclens For Decolonization -) [address] [facility] Last Admin: 10/20/16 22:00 Dose: 1 applic Chlorhexidine Gluconate (Peridex -) [address] [facility] Last Admin: 10/20/16 22:00 Dose: 15 ml Heparin Sodium (Porcine) (Heparin -) 5,[address] [facility] Last Admin: 10/20/16 22:00 Dose: 5,000 unit Pantoprazole Sodium (Protonix 40mg Ivpb (Pre-Docked)) 100 mls @ 200 mls/hr IVPB DAILY [facility] Last Admin: 10/20/16 10:43 Dose: 200 mls/hr Propofol (Diprivan -) 100 mls @ 2.353 mls/hr IVPB TITR [facility]; 5 MCG/KG/MIN PRN Reason: Protocol Last Admin: 10/20/16 18:16 Dose: 2.353 mls/hr Propofol (Diprivan -) 100 mls @ 2.424 mls/hr IVPB TITR [facility]; 5 MCG/KG/MIN PRN Reason: Protocol Last Admin: 10/21/16 00:15 Dose: Not Given Insulin Aspart (Novolog Vial Sliding Scale -) [address] [facility] PRN Reason: Protocol Last Admin: 10/21/16 06:38 Dose: 6 units Insulin Detemir (Levemir Vial) [address] [facility] Last Admin: 10/21/16 06:38 Dose: 10 units Metoprolol Tartrate (Lopressor -) 12.[address] [facility] Last Admin: 10/21/16 06:38 Dose: 12.5 mg - Objective Vital Signs: Vital Signs Temperature 98.9 F 10/21/16 06:00 Pulse Rate 88 10/21/16 06:00 Respiratory Rate 20 10/21/16 07:20 Blood Pressure 128/72 10/21/16 06:00 O2 Sat by Pulse Oximetry (%) 96 10/20/16 22:00 Constitutional: Yes: Other (Intubated) Cardiovascular: Yes: Regular Rate and Rhythm, S1, S2 Respiratory: Yes: WNL, Regular, CTA Bilaterally Gastrointestinal: Yes: Soft. No: Tenderness, Tenderness, Rebound Edema: No Labs: CBC, BMP 10/21/16 05:25 10/21/16 05:25 INR, PTT INR 1.24 (0.82-1.09) H 10/15/16 09:16 Problem List - Problems (1) Acute respiratory failure with hypoxia Code(s): J96.01 - ACUTE RESPIRATORY FAILURE WITH HYPOXIA (2) Healthcare-associated pneumonia Code(s): J18.9 - PNEUMONIA, UNSPECIFIED ORGANISM (3) Sepsis Code(s): A41.9 - SEPSIS, UNSPECIFIED ORGANISM Qualifiers: Sepsis type: sepsis due to unspecified organism Qualified Code(s): A41.9 - Sepsis, unspecified organism Assessment/Plan Microbiology 10/17/16 15:00 Sputum - Endotrachea Suction/Ventilator Gram Stain - Final 10/17/16 15:00 Sputum - Endotrachea Suction/Ventilator Sputum Culture - Final Yeast Like Organism 10/15/16 21:00 Urine For Antigen Detection Legionella Antigen - Final 10/15/16 21:00 Urine For Antigen Detection Streptococcus pneumoniae Antigen (M - Final 10/15/16 10:45 Nasopharyngeal Swab Influenza Types A,B Antigen (BRIDGETTE) - Final 10/15/16 10:45 Nasopharyngeal Swab - Final 10/15/16 09:30 Urine - Urine - Catheterized Urine Culture - Final 10/15/16 09:22 Blood - Peripheral Venous Blood Culture - Final NO GROWTH AFTER 5 DAYS INCUBATION 10/15/16 09:10 Blood - Peripheral Venous Blood Culture - Final NO GROWTH AFTER 5 DAYS INCUBATION 10/15/16 10:45 Nasopharyngeal Swab Respiratory Virus Panel - Preliminary Laboratory Tests 10/21/16 10/21/16 10/21/16 05:25 05:25 07:30 WBC 18.8 H Hgb 12.6 Plt Count 320 ABG pH 7.45 Oxygen Flow Rate 50% BUN 32 H Creatinine 0.8 D Creat Clearance w eGFR > 60 Assessment Respiratory failure wait sepsis cultures not revealing got Vancomycin and Cefepime Recent Influenza Plan Reculture Dose Vancomycin and Imipenem veronica Peña MD
--- NOTE | 2016-10-21 09:53 | PN ---
Progress Note (short form) - Note Progress Note: PULMONARY/CCM Pt seen and examined in the ICU. Remains intubated, sedated. Low grade fevers. Vented on volume assist control with 50% FiO2. Last Vital Signs Temp Pulse Resp BP Pulse Ox 99.1 F 86 24 119/69 96 10/21/16 08:00 10/21/16 08:00 10/21/16 09:50 10/21/16 08:00 10/21/16 08:00 Intake & Output 10/18/16 10/19/16 10/20/16 10/21/16 23:59 23:59 23:59 23:59 Intake Total 2919.6 2952 4170 1702.8 Output Total 1050 1600 1100 450 Balance 1869.6 1352 3070 1252.8 Weight 176 lb 12.972 oz 178 lb 2.136 oz 177 lb 2.136 oz 176 lb 6.4 oz Gen: intubated, sedated Heart: tachycardic, regular Lung: scattered rhonchi Abd: soft, nontender Ext: trace edema CBC, BMP 10/21/16 05:25 10/21/16 05:25 Active Medications Acetaminophen (Tylenol Suppository -) 650 mg [place] Q6H PRN PRN Reason: FEVER OR PAIN Last Admin: 10/19/16 22:00 Dose: 650 mg Aspirin (Asa -) 300 mg RC DAILY [facility] Last Admin: 10/20/16 10:42 Dose: 300 mg Atorvastatin Calcium (Lipitor -) 40 mg PO HS [facility] Last Admin: 10/20/16 22:00 Dose: 40 mg Chlorhexidine Gluconate (Hibiclens For Decolonization -) 1 applic TP HS [facility] Last Admin: 10/20/16 22:00 Dose: 1 applic Chlorhexidine Gluconate (Peridex -) 15 ml MM BID [facility] Last Admin: 10/20/16 22:00 Dose: 15 ml Heparin Sodium (Porcine) (Heparin -) 5,000 unit SQ BID [facility] Last Admin: 10/20/16 22:00 Dose: 5,000 unit Pantoprazole Sodium (Protonix 40mg Ivpb (Pre-Docked)) 100 mls @ 200 mls/hr IVPB DAILY [facility] Last Admin: 10/20/16 10:43 Dose: 200 mls/hr Propofol (Diprivan -) 100 mls @ 2.353 mls/hr IVPB TITR [facility]; 5 MCG/KG/MIN PRN Reason: Protocol Last Admin: 10/20/16 18:16 Dose: 2.353 mls/hr Propofol (Diprivan -) 100 mls @ 2.424 mls/hr IVPB TITR [facility]; 5 MCG/KG/MIN PRN Reason: Protocol Last Admin: 10/21/16 00:15 Dose: Not Given Vancomycin HCl 1,250 mg/ (Dextrose) 250 mls @ 166.667 mls/hr IVPB DAILY [facility] PRN Reason: Protocol Imipenem/Cilastatin Sodium 500 (mg/ Sodium Chloride) 100 mls @ 100 mls/hr IVPB Q6H-IV [facility] PRN Reason: Protocol Insulin Aspart (Novolog Vial Sliding Scale -) 1 vial SQ Q6HPO [facility] PRN Reason: Protocol Last Admin: 10/21/16 06:38 Dose: 6 units Insulin Detemir (Levemir Vial) 10 units SQ BIDI [facility] Last Admin: 10/21/16 06:38 Dose: 10 units Metoprolol Tartrate (Lopressor -) 12.5 mg PO TID [facility] Last Admin: 10/21/16 06:38 Dose: 12.5 mg A/P Acute Hypoxic Respiratory Failure Pneumonia Recent Influenza Severe Sepsis Acute Kidney Injury Lactic Acidosis +Troponins - ?Demand Ischemia from Sepsis LV Systolic Heart Failure HTN CAD DM Dementia - continue antibiotics per ID - f/u cultures - free water via OGT - monitor urine output, creatinine - ASA, beta regina - taper Fio2 to keep Spo2 >90% - minimize sedation to assess mental status - start spontaneous breathing trials as tolerated when mental status improves - enteral feeds - DVT/GI prophylaxis - ICU monitoring critical care time spent in reviewing chart, evaluating patient and formulating plan 40 min
[2016-10-21] MEDS: VANCOMYCIN 1,250 MG in DEXTROSE 5%-WATER - 250 ML IVPB SCH (09:55)
[2016-10-21] MEDS: CHLORHEXIDINE GLUCONATE 0.12% 15ML CUP MM SCH ×2 (09:55→22:46)
[2016-10-21] MEDS: PANTOPRAZOLE SODIUM 100 ML IVPB SCH (09:55)
[2016-10-21] MEDS: HEPARIN NA (PORCINE) 5,000 UNITS/ML 1ML VIAL SQ SCH ×2 (09:55→22:44)
[2016-10-21] MEDS: NAPH,MB-DB/K PH,MBDB POWDER PACKET PO SCH ×2 (10:00→22:46)
[2016-10-21] MEDS: IMIPENEM/CILASTATIN SODIUM 500 MG in SODIUM CHLORIDE 100 ML IVPB SCH ×3 (10:30→21:00)
--- NOTE | 2016-10-21 11:50 | PN ---
Progress Note (short form) - Note Progress Note: Patient seen and examined with family in room this morning. It was there perception, and I agree, that he is less arousable than he had been over the last couple of days. He has a high WBC count. ABx were stopped because of a lack of identifiable organism, and I wonder if this could be the reason, whether perhaps, the abx were helping control, if not eradicating the infection. In any case, he doesn't open eyes or move to voice or touch today at all, and the remainder of his metabolic status seems unchanged. Problem List - Problems (1) Alzheimer disease Code(s): G30.9 - ALZHEIMER'S DISEASE, UNSPECIFIED Qualifiers: Alzheimer's disease onset: early-onset Dementia behavioral disturbance : without behavioral disturbance Qualified Code(s): G30.0 - Alzheimer's disease with early onset; F02.81 - Dementia in other diseases classified elsewhere with behavioral disturbance (2) Encephalopathy acute Code(s): G93.40 - ENCEPHALOPATHY, UNSPECIFIED (3) Cerebrovascular disease Code(s): I67.9 - CEREBROVASCULAR DISEASE, UNSPECIFIED (4) Cerebrovascular small vessel disease Code(s): I67.9 - CEREBROVASCULAR DISEASE, UNSPECIFIED
--- NOTE | 2016-10-21 11:55 | PN ---
Progress Note (short form) - Note Progress Note: Pt sedated/ intubated all f/u noted daughter at bedside Vital Signs Temp 99.2 F 10/21/16 10:00 Pulse 87 10/21/16 10:00 Resp 24 10/21/16 10:00 BP 138/78 10/21/16 10:00 Pulse Ox 96 10/21/16 08:00 Intake & Output 10/20/16 10/20/16 10/21/16 11:59 23:59 11:59 Intake Total 2150 2020 1702.8 Output Total 700 400 450 Balance 1450 1620 1252.8 Weight 177 lb 2.136 oz 176 lb 6.4 oz Intake: IV 58.8 Diprivan - 100 ml @ 5 MCG 58.8 /KG/MIN 2.424 mls/hr IVPB TITR [facility] Rx#:[id number] IVPB 200 100 Tube Feeding 750 620 744 Tube Irrigant 1200 1300 900 Output: Urine 700 400 450 Palacio 700 400 450 Other: Voiding Method Indwelling Catheter Indwelling Catheter Indwelling Catheter Bowel Movement No Yes: small pasty brown Yes: small pasty brown Weight Measurement Method [facility] Active Medications Acetaminophen (Tylenol Suppository -) 650 mg [place] Q6H PRN PRN Reason: FEVER OR PAIN Last Admin: 10/19/16 22:00 Dose: 650 mg Aspirin (Asa -) 300 mg RC DAILY [facility] Last Admin: 10/20/16 10:42 Dose: 300 mg Atorvastatin Calcium (Lipitor -) 40 mg PO HS [facility] Last Admin: 10/20/16 22:00 Dose: 40 mg Chlorhexidine Gluconate (Hibiclens For Decolonization -) 1 applic TP HS [facility] Last Admin: 10/20/16 22:00 Dose: 1 applic Chlorhexidine Gluconate (Peridex -) 15 ml MM BID [facility] Last Admin: 10/21/16 09:55 Dose: 15 ml Heparin Sodium (Porcine) (Heparin -) 5,000 unit SQ BID [facility] Last Admin: 10/21/16 09:55 Dose: 5,000 unit Pantoprazole Sodium (Protonix 40mg Ivpb (Pre-Docked)) 100 mls @ 200 mls/hr IVPB DAILY [facility] Last Admin: 10/21/16 09:55 Dose: 200 mls/hr Propofol (Diprivan -) 100 mls @ 2.353 mls/hr IVPB TITR [facility]; 5 MCG/KG/MIN PRN Reason: Protocol Last Admin: 10/20/16 18:16 Dose: 2.353 mls/hr Propofol (Diprivan -) 100 mls @ 2.424 mls/hr IVPB TITR [facility]; 5 MCG/KG/MIN PRN Reason: Protocol Last Admin: 10/21/16 00:15 Dose: Not Given Vancomycin HCl 1,250 mg/ (Dextrose) 250 mls @ 166.667 mls/hr IVPB DAILY [facility] PRN Reason: Protocol Last Admin: 10/21/16 09:55 Dose: 166.667 mls/hr Imipenem/Cilastatin Sodium 500 (mg/ Sodium Chloride) 100 mls @ 100 mls/hr IVPB Q6H-IV [facility] PRN Reason: Protocol Last Admin: 10/21/16 10:30 Dose: 100 mls/hr Insulin Aspart (Novolog Vial Sliding Scale -) 1 vial SQ Q6HPO [facility] PRN Reason: Protocol Last Admin: 10/21/16 11:04 Dose: 6 units Insulin Detemir (Levemir Vial) 10 units SQ BIDI [facility] Last Admin: 10/21/16 06:38 Dose: 10 units Metoprolol Tartrate (Lopressor -) 12.5 mg PO TID [facility] Last Admin: 10/21/16 06:38 Dose: 12.5 mg Potassium Phos/Sodium Phos (Phos-Nak Packet -) 1 packet PO BID [facility] Stop: 10/21/16 22:01 Last Admin: 10/21/16 10:00 Dose: 1 packet CBC, BMP 10/21/16 05:25 10/21/16 05:25 cxr - reviewed PHYSICAL EXAMINATION: Constitutional: Yes: Intubated./ sedated Cardiovascular: Yes: Regular Rate and Rhythm Respiratory: Yes: bilateral breath sounds anteriorly Gastrointestinal: Yes: Normal Bowel Sounds, Soft. No: Distention, Tenderness Edema: Yes Edema: LLE: 1+, RLE: 1+ Neurological: Yes: sedated ASSESSMENT & PLAN: - continue to have fever - elevated wbc --Remains intubated. - - Antibiotics per i/d -- restarted again - Weaning as tolerated. 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 - Overall condition poor due to multiple co-morbidities. - Will follow. - continue present care --discussed with pts daughter who is at bedside Problem List - Problems (1) Acute respiratory failure with hypoxia Code(s): J96.01 - ACUTE RESPIRATORY FAILURE WITH HYPOXIA (2) Cerebrovascular disease Code(s): I67.9 - CEREBROVASCULAR DISEASE, UNSPECIFIED (3) Cerebrovascular small vessel disease Code(s): I67.9 - CEREBROVASCULAR DISEASE, UNSPECIFIED (4) Healthcare-associated pneumonia Code(s): J18.9 - PNEUMONIA, UNSPECIFIED ORGANISM (5) Sepsis Code(s): A41.9 - SEPSIS, UNSPECIFIED ORGANISM Qualifiers: Sepsis type: sepsis due to unspecified organism Qualified Code(s): A41.9 - Sepsis, unspecified organism (6) Alzheimer disease Code(s): G30.9 - ALZHEIMER'S DISEASE, UNSPECIFIED Qualifiers: Alzheimer's disease onset: early-onset Dementia behavioral disturbance : without behavioral disturbance Qualified Code(s): G30.0 - Alzheimer's disease with early onset; F02.81 - Dementia in other diseases classified elsewhere with behavioral disturbance (7) Lactic acid blood increased Code(s): R79.89 - OTHER SPECIFIED ABNORMAL FINDINGS OF BLOOD CHEMISTRY
[2016-10-21] MEDS: ASPIRIN 300 MG SUPP.RECT RC SCH (12:05)
--- NOTE | 2016-10-21 14:56 | PN ---
Progress Note (short form) - Note Progress Note: CC: NSTEMI s: low grade fevers. minimally responsive. o: Current Medications Acetaminophen (Tylenol Suppository -) 650 mg [place] Q6H PRN PRN Reason: FEVER OR PAIN Last Admin: 10/19/16 22:00 Dose: 650 mg Aspirin (Asa -) 300 mg RC DAILY [facility] Last Admin: 10/21/16 12:05 Dose: 300 mg Atorvastatin Calcium (Lipitor -) 40 mg PO HS [facility] Last Admin: 10/20/16 22:00 Dose: 40 mg Chlorhexidine Gluconate (Hibiclens For Decolonization -) 1 applic TP HS [facility] Last Admin: 10/20/16 22:00 Dose: 1 applic Chlorhexidine Gluconate (Peridex -) 15 ml MM BID [facility] Last Admin: 10/21/16 09:55 Dose: 15 ml Heparin Sodium (Porcine) (Heparin -) 5,000 unit SQ BID [facility] Last Admin: 10/21/16 09:55 Dose: 5,000 unit Pantoprazole Sodium (Protonix 40mg Ivpb (Pre-Docked)) 100 mls @ 200 mls/hr IVPB DAILY [facility] Last Admin: 10/21/16 09:55 Dose: 200 mls/hr Propofol (Diprivan -) 100 mls @ 2.353 mls/hr IVPB TITR [facility]; 5 MCG/KG/MIN PRN Reason: Protocol Last Admin: 10/20/16 18:16 Dose: 2.353 mls/hr Propofol (Diprivan -) 100 mls @ 2.424 mls/hr IVPB TITR [facility]; 5 MCG/KG/MIN PRN Reason: Protocol Last Admin: 10/21/16 00:15 Dose: Not Given Vancomycin HCl 1,250 mg/ (Dextrose) 250 mls @ 166.667 mls/hr IVPB DAILY [facility] PRN Reason: Protocol Last Admin: 10/21/16 09:55 Dose: 166.667 mls/hr Imipenem/Cilastatin Sodium 500 (mg/ Sodium Chloride) 100 mls @ 100 mls/hr IVPB Q6H-IV [facility] PRN Reason: Protocol Last Admin: 10/21/16 14:09 Dose: 100 mls/hr Insulin Aspart (Novolog Vial Sliding Scale -) 1 vial SQ Q6HPO [facility] PRN Reason: Protocol Last Admin: 10/21/16 11:04 Dose: 6 units Insulin Detemir (Levemir Vial) 10 units SQ BIDI [facility] Last Admin: 10/21/16 06:38 Dose: 10 units Metoprolol Tartrate (Lopressor -) 12.5 mg PO TID [facility] Last Admin: 10/21/16 13:34 Dose: 12.5 mg Potassium Phos/Sodium Phos (Phos-Nak Packet -) 1 packet PO BID [facility] Stop: 10/21/16 22:01 Last Admin: 10/21/16 10:00 Dose: 1 packet Vital Signs Period Temp Pulse Resp BP Sys/Machado Pulse Ox Last 24 Hr 98.9 F-100.6 F 86-105 20-32 97-138/54-98 96-96 Intake & Output 10/19/16 10/20/16 10/21/16 10/22/16 07:59 07:59 07:59 07:59 Intake Total 2620 3882 4022.8 550 Output Total 2050 1300 850 350 Balance 570 2582 3172.8 200 Weight 178 lb 2.136 oz 177 lb 2.136 oz 176 lb 6.4 oz intubated, sedated rrr s1s2 no mrg coarse bs anteriorly, vented. tachypneic no jvd pos dp pt no jaundice diaphoresis no le e/c/c abd nd pos bs CBC, BMP 10/21/16 05:25 10/21/16 05:25 tele: sr pvc's, brief svt x 2 cxr: bibasilar infiltrates, slight congestion echo 10/2016: sev dilated lv, sev dec lvef, rv mod dilated, mod dec rv fcn, reina , mild mr est cct 36 mins 10/21 cxr unchanged from yesterday Assessment/Plan HTN - briefly hypertensive when off sedation. 10/20 Now bp's running low again on propafol. - 10/21 bp's stable while off sedation. Can increase toprol dose if bp continues to rise. acute hypoxic resp failure: -remains intubated -b/l infiltrates on cxr -suspect PNA (hi fever, recent + flu) >> chf. -cont abx per ID hi fever, sepsis -hemodynamically stable at present, without need for pressors JULIET: -initial creat 1.9, from 0.9-1.0 prior -? all sepsis related -cr now improved s/p abx, ivfs prior h/o CAD, elevated troponin: -initial trop 3.4, normal ck. Trop now trending down. -florid sepsis picture makes the elevated troponin likely due to sepsis direct myocardial injury, vs Type II UT from hypoxia/tachycardia/? transiently hypotensive in [place] -ECG with ischemic changes (TWIs anteriorly)--also could all be secondary to above -cannot definitively rule out acute AWMI based on this ecg, however not likely given changes are improving, not evolving, on serial tracings; -echo here with severe dec lvef -nstemi s/p hep gtt x 72 hrs --> stopped 10/18, was off plavix while not taking po meds, con't to hold in light of clinical status. con't asa. -start statin and po bb, -cont tele -further ischemic eval based on clinical course NSVT: -intermittent recurrent brief runs on tele, -replete lytes prn -cont bb, 10/18, will uptitrate dose by increasing frequency. - 10/20 switched to po low dose metoprolol systolic chf, likely chronic: -echo here showing biventricular failure -currently no sig vol overload, cxr unchanged. -cont bb, start ACEI when bp tolerates -further ischemic eval based on clinical course Poor prognosis
[2016-10-21] MEDS: ACETAMINOPHEN 650 MG SUPP.RECT PR PRN (16:53)
[2016-10-21] MEDS ORDERED: PT OWN MED DRAWER 7, Y5N ONE (22:40)
[2016-10-21] MEDS: ATORVASTATIN CA 40 MG TABLET (FP) PO SCH (22:45)
[2016-10-21] MEDS: CHLORHEXIDINE GLUCONATE 4% CLEANSER FOR DECOLONIZATION TP SCH (22:45)
[2016-10-22] MEDS: PROPOFOL 100 ML IVPB SCH ×3 (00:01→17:17)
[2016-10-22] MEDS: IMIPENEM/CILASTATIN SODIUM 500 MG in SODIUM CHLORIDE 100 ML IVPB SCH ×4 (03:25→21:49)
[2016-10-22 06:11] LABS: BASOPHIL 0.2 % (0-2.0); MCH 27.5 pg (25.7-33.7); MCHC 32.2 g/dl (32.0-35.9); MEAN CELL VOLUME 85.3 fl (80-96); MEAN PLT VOLUME 9.7 fl (7.5-11.1); PLATELET COUNT 321 K/MM3 (134-434); RDW 14.5 % (11.9-15.9); WHITE BLOOD COUNT 15.2 K/mm3 (4.0-10.0)
[2016-10-22] MEDS: INSULIN SLIDING SCALE (NOVOLOG) 1 VIAL SQ SCH ×4 (06:13→17:16)
[2016-10-22] MEDS: METOPROLOL TARTRATE 25 MG TABLET (FP) PO SCH ×3 (06:13→21:51)
[2016-10-22] MEDS: INSULIN DETEMIR 100 UNITS/ML MDV SQ SCH ×2 (06:14→17:17)
[2016-10-22 06:56] LABS: ALBUMIN 1.3 g/dl (3.4-5.0); ANION GAP 8 (8-16); CALCIUM 7.6 mg/dL (8.5-10.1); CO2 27 mmol/L (21-32); GLUCOSE,RANDOM 162 mg/dL (74-106); MAGNESIUM 2.1 mg/dL (1.8-2.4)
[2016-10-22 07:00] LABS: ALK PHOS 107 U/L (45-117); BILIRUBIN,TOTAL 0.3 mg/dL (0.2-1.0); COCKROFT - GAULT 86.78; CREATININE 0.7 mg/dL (0.7-1.3); PHOSPHOROUS 2.5 mg/dL (2.5-4.9); SGOT/AST 20 U/L (15-37); SGPT/ALT 20 U/L (12-78); TOT PROT 4.9 g/dl (6.4-8.2)
--- NOTE | 2016-10-22 07:19 | PN ---
Progress Note, Physician Chief Complaint: change in MS History of Present Illness: continues to be poorly arousable, intubated and sedated with propofol as per nurse abdominal breathing without propofol breathing over vent , 25/06, 99.7 temp minimally responsive to tactile stim ( will briefly open eyes) , nonverbal + corneals, limited doll to R may briefly withdraw R arm and leg to stimulation no nuchal rigidity - Current Medication List Current Medications: Active Medications Acetaminophen (Tylenol Suppository -) 650 mg [place] Q6H PRN PRN Reason: FEVER OR PAIN Last Admin: 10/21/16 16:53 Dose: 650 mg Aspirin (Asa -) 300 mg RC DAILY [facility] Last Admin: 10/21/16 12:05 Dose: 300 mg Atorvastatin Calcium (Lipitor -) 40 mg PO HS [facility] Last Admin: 10/21/16 22:45 Dose: 40 mg Chlorhexidine Gluconate (Hibiclens For Decolonization -) 1 applic TP HS [facility] Last Admin: 10/21/16 22:45 Dose: 1 applic Chlorhexidine Gluconate (Peridex -) 15 ml MM BID [facility] Last Admin: 10/21/16 22:46 Dose: 15 ml Heparin Sodium (Porcine) (Heparin -) 5,000 unit SQ BID [facility] Last Admin: 10/21/16 22:44 Dose: 5,000 unit Pantoprazole Sodium (Protonix 40mg Ivpb (Pre-Docked)) 100 mls @ 200 mls/hr IVPB DAILY [facility] Last Admin: 10/21/16 09:55 Dose: 200 mls/hr Propofol (Diprivan -) 100 mls @ 2.353 mls/hr IVPB TITR [facility]; 5 MCG/KG/MIN PRN Reason: Protocol Last Admin: 10/22/16 06:18 Dose: 4.706 mls/hr Propofol (Diprivan -) 100 mls @ 2.424 mls/hr IVPB TITR [facility]; 5 MCG/KG/MIN PRN Reason: Protocol Last Admin: 10/22/16 00:01 Dose: Not Given Vancomycin HCl 1,250 mg/ (Dextrose) 250 mls @ 166.667 mls/hr IVPB DAILY [facility] PRN Reason: Protocol Last Admin: 10/21/16 09:55 Dose: 166.667 mls/hr Imipenem/Cilastatin Sodium 500 (mg/ Sodium Chloride) 100 mls @ 100 mls/hr IVPB Q6H-IV [facility] PRN Reason: Protocol Last Admin: 10/22/16 03:25 Dose: 100 mls/hr Insulin Aspart (Novolog Vial Sliding Scale -) 1 vial SQ Q6HPO [facility] PRN Reason: Protocol Last Admin: 10/22/16 06:13 Dose: 2 units Insulin Detemir (Levemir Vial) 10 units SQ BIDI [facility] Last Admin: 10/22/16 06:14 Dose: 10 units Metoprolol Tartrate (Lopressor -) 12.5 mg PO TID [facility] Last Admin: 10/22/16 06:13 Dose: 12.5 mg - Objective Vital Signs: Vital Signs Temperature 99.7 F H 10/22/16 06:00 Pulse Rate 92 H 10/22/16 06:00 Respiratory Rate 20 10/22/16 06:30 Blood Pressure 132/74 10/22/16 06:00 O2 Sat by Pulse Oximetry (%) 97 10/22/16 00:31 Neurological: Yes: Other (see above) Labs: CBC, BMP 10/22/16 05:15 10/22/16 05:15 INR, PTT INR 1.24 (0.82-1.09) H 10/15/16 09:16 Problem List - Problems (1) Acute respiratory failure with hypoxia Code(s): J96.01 - ACUTE RESPIRATORY FAILURE WITH HYPOXIA (2) Cerebrovascular small vessel disease Code(s): I67.9 - CEREBROVASCULAR DISEASE, UNSPECIFIED (3) Encephalopathy acute Code(s): G93.40 - ENCEPHALOPATHY, UNSPECIFIED (4) Sepsis Code(s): A41.9 - SEPSIS, UNSPECIFIED ORGANISM Qualifiers: Sepsis type: sepsis due to unspecified organism Qualified Code(s): A41.9 - Sepsis, unspecified organism Assessment/Plan continues to be sedated and poorly arousable ;likely acute respiratory failure /hypoxic playing a role in encephalopathy, multiple comorbidities last HD CT chronic ischemic disease, no clear focality to suggest another ischemic event though difficult to decipher on sedation , ideally to taper if possible no evidence of seizures being treated with ABX Dr Kiran
[2016-10-22 07:49] LABS: ALLENS TEST POSITIVE; ART PUNCT SITE RIGHT RADIAL; ARTERIAL BLD GAS O2 SATURATION 97.4 % (90-98.9); ARTERIAL BLOOD GAS BASE EXCESS 1.9 meq/l (-2-2); ARTERIAL BLOOD GAS HCO3 25.6 meq/L (22-26); ARTERIAL BLOOD GAS pH 7.44 (7.35-7.45); LPM/O2% 50; MECH. VENT. YES; PT. ON O2? YES; TYPE OF O2 VENT; VENT RATE 12; VT/PRESS 500
--- NOTE | 2016-10-22 08:15 | PN ---
Progress Note (short form) - Note Progress Note: Subjective Patient seen and examined in the ICU. Remains intubated and sedated. Low grade temp. Slightly decreased WBCs Objective Last Vital Signs Temp Pulse Resp BP Pulse Ox 100.0 F H 75 17 124/64 97 10/22/16 08:00 10/22/16 08:00 10/22/16 08:00 10/22/16 08:00 10/22/16 08:00 CBC, BMP 10/22/16 05:15 10/22/16 05:15 Laboratory Results - last 24 hr 10/21/16 10/21/16 10/21/16 11:02 16:32 23:39 WBC RBC Hgb Hct MCV MCHC RDW Plt Count MPV Neutrophils % Lymphocytes % Monocytes % Eosinophils % Basophils % Puncture Site ABG pH ABG pCO2 at Pt Temp ABG pO2 at Pt Temp ABG HCO3 ABG O2 Sat (Measured) ABG O2 Content ABG Base Excess Alexandro Test O2 Delivery Device Oxygen Flow Rate Vent Mode Vent Rate Mechanical Rate PEEP Pressure Support Vent Sodium Potassium Chloride Carbon Dioxide Anion Gap BUN Creatinine Creat Clearance w eGFR POC Glucometer 296.33440 250.74044 285.66096 Random Glucose Calcium Phosphorus Magnesium Total Bilirubin AST ALT Alkaline Phosphatase Total Protein Albumin 10/22/16 10/22/16 10/22/16 05:15 05:15 05:42 WBC 15.2 H RBC 4.22 Hgb 11.6 L Hct 36.0 MCV 85.3 MCHC 32.2 RDW 14.5 Plt Count 321 MPV 9.7 Neutrophils % 86.0 H Lymphocytes % 4.7 L D Monocytes % 7.1 Eosinophils % 2.0 D Basophils % 0.2 Puncture Site ABG pH ABG pCO2 at Pt Temp ABG pO2 at Pt Temp ABG HCO3 ABG O2 Sat (Measured) ABG O2 Content ABG Base Excess Alexandro Test O2 Delivery Device Oxygen Flow Rate Vent Mode Vent Rate Mechanical Rate PEEP Pressure Support Vent Sodium 146 H Potassium 4.6 Chloride 111 H Carbon Dioxide 27 Anion Gap 8 BUN 28 H Creatinine 0.7 Creat Clearance w eGFR > 60 POC Glucometer [phone] Random Glucose 162 H D Calcium 7.6 L Phosphorus 2.5 Magnesium 2.1 Total Bilirubin 0.3 D AST 20 D ALT 20 Alkaline Phosphatase 107 Total Protein 4.9 L Albumin 1.3 L 10/22/16 07:10 WBC RBC Hgb Hct MCV MCHC RDW Plt Count MPV Neutrophils % Lymphocytes % Monocytes % Eosinophils % Basophils % Puncture Site Right radial ABG pH 7.44 ABG pCO2 at Pt Temp 38.6 ABG pO2 at Pt Temp 101.0 H D ABG HCO3 25.6 ABG O2 Sat (Measured) 97.4 ABG O2 Content 18.2 ABG Base Excess 1.9 Alexandro Test Positive O2 Delivery Device Vent Oxygen Flow Rate 50 Vent Mode A/c Vent Rate 12 Mechanical Rate Yes PEEP 5.0 Pressure Support Vent 500 Sodium Potassium Chloride Carbon Dioxide Anion Gap BUN Creatinine Creat Clearance w eGFR POC Glucometer Random Glucose Calcium Phosphorus Magnesium Total Bilirubin AST ALT Alkaline Phosphatase Total Protein Albumin Physical Exam Constitutional: Yes: Intubated./ sedated Cardiovascular: Yes: Regular Rate and Rhythm Respiratory: Yes: bilateral breath sounds anteriorly Gastrointestinal: Yes: Normal Bowel Sounds, Soft. No: Distention, Tenderness Edema: Yes Edema: LLE: 1+, RLE: 1+ Neurological: Yes: sedated Assessment and Plan Continue present care. Abx. Follow up CXR noted.. Weaning trials as tolerated. Monitor BG. Overall condition guarded. Will follow. Documentation prepared by Zehra Bridges, acting as a medical reimbursement specialist for Regina Jones MD. <Zehra Bridges - Last Filed: 10/22/16 10:36> Problem List - Problems (1) Acute respiratory failure with hypoxia Code(s): J96.01 - ACUTE RESPIRATORY FAILURE WITH HYPOXIA (2) Cerebrovascular disease Code(s): I67.9 - CEREBROVASCULAR DISEASE, UNSPECIFIED (3) Cerebrovascular small vessel disease Code(s): I67.9 - CEREBROVASCULAR DISEASE, UNSPECIFIED (4) Healthcare-associated pneumonia Code(s): J18.9 - PNEUMONIA, UNSPECIFIED ORGANISM (5) Sepsis Code(s): A41.9 - SEPSIS, UNSPECIFIED ORGANISM Qualifiers: Sepsis type: sepsis due to unspecified organism Qualified Code(s): A41.9 - Sepsis, unspecified organism (6) Alzheimer disease Code(s): G30.9 - ALZHEIMER'S DISEASE, UNSPECIFIED Qualifiers: Alzheimer's disease onset: early-onset Dementia behavioral disturbance : without behavioral disturbance Qualified Code(s): G30.0 - Alzheimer's disease with early onset; F02.81 - Dementia in other diseases classified elsewhere with behavioral disturbance (7) Lactic acid blood increased Code(s): R79.89 - OTHER SPECIFIED ABNORMAL FINDINGS OF BLOOD CHEMISTRY <Regina Jones - Last Filed: 10/22/16 08:15> - Problems (1) Acute respiratory failure with hypoxia Code(s): J96.01 - ACUTE RESPIRATORY FAILURE WITH HYPOXIA (2) Sepsis Code(s): A41.9 - SEPSIS, UNSPECIFIED ORGANISM Qualifiers: Sepsis type: sepsis due to unspecified organism Qualified Code(s): A41.9 - Sepsis, unspecified organism (3) Septic shock Code(s): A41.9 - SEPSIS, UNSPECIFIED ORGANISM R65.21 - SEVERE SEPSIS WITH SEPTIC SHOCK (4) Alzheimer disease Code(s): G30.9 - ALZHEIMER'S DISEASE, UNSPECIFIED Qualifiers: Alzheimer's disease onset: early-onset Dementia behavioral disturbance : without behavioral disturbance Qualified Code(s): G30.0 - Alzheimer's disease with early onset; F02.81 - Dementia in other diseases classified elsewhere with behavioral disturbance (5) Influenza A Code(s): J10.1 - FLU DUE TO OTH IDENT INFLUENZA VIRUS W OTH RESP MANIFEST (6) Lactic acid blood increased Code(s): R79.89 - OTHER SPECIFIED ABNORMAL FINDINGS OF BLOOD CHEMISTRY <Zehra Bridges - Last Filed: 10/22/16 10:36>
[2016-10-22] MEDS ORDERED: PT OWN MED DRAWER 7, Y5N ONE ×2 (08:39→21:43)
--- NOTE | 2016-10-22 08:40 | PN ---
Progress Note, Physician Chief Complaint: ID Remains intubated Low grade temp 2nd attempt at treating fever WBC elevation PNA NOw da1 Vanco and Imipenem - Current Medication List Current Medications: Active Medications Acetaminophen (Tylenol Suppository -) 650 mg [place] Q6H PRN PRN Reason: FEVER OR PAIN Last Admin: 10/21/16 16:53 Dose: 650 mg Aspirin (Asa -) [address] [facility] Last Admin: 10/21/16 12:05 Dose: 300 mg Atorvastatin Calcium (Lipitor -) 40 mg PO HS [facility] Last Admin: 10/21/16 22:45 Dose: 40 mg Chlorhexidine Gluconate (Hibiclens For Decolonization -) [address] [facility] Last Admin: 10/21/16 22:45 Dose: 1 applic Chlorhexidine Gluconate (Peridex -) [address] [facility] Last Admin: 10/21/16 22:46 Dose: 15 ml Heparin Sodium (Porcine) (Heparin -) 5,[address] [facility] Last Admin: 10/21/16 22:44 Dose: 5,000 unit Pantoprazole Sodium (Protonix 40mg Ivpb (Pre-Docked)) 100 mls @ 200 mls/hr IVPB DAILY [facility] Last Admin: 10/21/16 09:55 Dose: 200 mls/hr Propofol (Diprivan -) 100 mls @ 2.353 mls/hr IVPB TITR [facility]; 5 MCG/KG/MIN PRN Reason: Protocol Last Admin: 10/22/16 06:18 Dose: 4.706 mls/hr Propofol (Diprivan -) 100 mls @ 2.424 mls/hr IVPB TITR [facility]; 5 MCG/KG/MIN PRN Reason: Protocol Last Admin: 10/22/16 00:01 Dose: Not Given Vancomycin HCl 1,250 mg/ (Dextrose) 250 mls @ 166.667 mls/hr IVPB DAILY [facility] PRN Reason: Protocol Last Admin: 10/21/16 09:55 Dose: 166.667 mls/hr Imipenem/Cilastatin Sodium 500 (mg/ Sodium Chloride) 100 mls @ 100 mls/hr IVPB Q6H-IV [facility] PRN Reason: Protocol Last Admin: 10/22/16 03:25 Dose: 100 mls/hr Insulin Aspart (Novolog Vial Sliding Scale -) 1 vial SQ Q6HPO [facility] PRN Reason: Protocol Last Admin: 10/22/16 06:13 Dose: 2 units Insulin Detemir (Levemir Vial) [address] [facility] Last Admin: 10/22/16 06:14 Dose: 10 units Metoprolol Tartrate (Lopressor -) 12.[address] [facility] Last Admin: 10/22/16 06:13 Dose: 12.5 mg - Objective Vital Signs: Vital Signs Temperature 100.0 F H 10/22/16 08:00 Pulse Rate 75 10/22/16 08:00 Respiratory Rate 17 10/22/16 08:00 Blood Pressure 124/64 10/22/16 08:00 O2 Sat by Pulse Oximetry (%) 97 10/22/16 08:00 Cardiovascular: Yes: S1, S2 Respiratory: Yes: Rhonchi Gastrointestinal: Yes: Soft. No: Tenderness Edema: No Labs: CBC, BMP 10/22/16 05:15 10/22/16 05:15 INR, PTT INR 1.24 (0.82-1.09) H 10/15/16 09:16 Problem List - Problems (1) Acute respiratory failure with hypoxia Code(s): J96.01 - ACUTE RESPIRATORY FAILURE WITH HYPOXIA (2) Healthcare-associated pneumonia Code(s): J18.9 - PNEUMONIA, UNSPECIFIED ORGANISM (3) Sepsis Code(s): A41.9 - SEPSIS, UNSPECIFIED ORGANISM Qualifiers: Sepsis type: sepsis due to unspecified organism Qualified Code(s): A41.9 - Sepsis, unspecified organism Assessment/Plan Microbiology Laboratory Tests 10/22/16 10/22/16 05:15 05:15 WBC 15.2 H Hgb 11.6 L Plt Count 321 AST 20 D Assessment Respiratory failure PNA chest chest xray improved Repeat cultures pending Blood negative Plan Await final c/s Mariana ALFONSO
[2016-10-22] MEDS: PANTOPRAZOLE SODIUM 100 ML IVPB SCH (09:20)
[2016-10-22] MEDS: HEPARIN NA (PORCINE) 5,000 UNITS/ML 1ML VIAL SQ SCH ×2 (09:20→21:50)
[2016-10-22] MEDS: CHLORHEXIDINE GLUCONATE 0.12% 15ML CUP MM SCH ×2 (09:20→21:50)
[2016-10-22] MEDS ORDERED: ASPIRIN COATED 81 MG TABLET.EC PO SCH (10:00)
--- NOTE | 2016-10-22 12:06 | PN ---
Teaching Attending Note Name of Resident: Madeline Mayo ATTENDING PHYSICIAN STATEMENT I saw and evaluated the patient. I reviewed the resident's note and discussed the case with the resident. I agree with the resident's findings and plan as documented. SUBJECTIVE: Pt seen and examined in the ICU. Remains intubated, sedated. Vented on volume assist control with 50% FiO2. Placed on CPAP/PS but became tachypneic almost immediately. OBJECTIVE: Last Vital Signs Temp Pulse Resp BP Pulse Ox 100.0 F H 78 22 124/64 97 10/22/16 08:00 10/22/16 11:17 10/22/16 09:20 10/22/16 08:00 10/22/16 11:17 Intake & Output 10/19/16 10/20/16 10/21/16 10/22/16 23:59 23:59 23:59 23:59 Intake Total 2952 4170 4325.6 1704 Output Total 1600 1100 1000 600 Balance 1352 3070 3325.6 1104 Weight 178 lb 2.136 oz 177 lb 2.136 oz 176 lb 6.4 oz 178 lb 9 oz Gen: intubated, sedated Heart: RRR Lung: scattered rhonchi Abd: soft, nontender Ext: trace edema CBC, BMP 10/22/16 05:15 10/22/16 05:15 Active Medications Acetaminophen (Tylenol Suppository -) 650 mg [place] Q6H PRN PRN Reason: FEVER OR PAIN Last Admin: 10/21/16 16:53 Dose: 650 mg Aspirin (Asa -) 81 mg PO DAILY [facility] Atorvastatin Calcium (Lipitor -) 40 mg PO HS [facility] Last Admin: 10/21/16 22:45 Dose: 40 mg Chlorhexidine Gluconate (Hibiclens For Decolonization -) 1 applic TP HS [facility] Last Admin: 10/21/16 22:45 Dose: 1 applic Chlorhexidine Gluconate (Peridex -) 15 ml MM BID [facility] Last Admin: 10/22/16 09:20 Dose: 15 ml Heparin Sodium (Porcine) (Heparin -) 5,000 unit SQ BID [facility] Last Admin: 10/22/16 09:20 Dose: 5,000 unit Pantoprazole Sodium (Protonix 40mg Ivpb (Pre-Docked)) 100 mls @ 200 mls/hr IVPB DAILY [facility] Last Admin: 10/22/16 09:20 Dose: 200 mls/hr Propofol (Diprivan -) 100 mls @ 2.353 mls/hr IVPB TITR [facility]; 5 MCG/KG/MIN PRN Reason: Protocol Last Admin: 10/22/16 06:18 Dose: 4.706 mls/hr Propofol (Diprivan -) 100 mls @ 2.424 mls/hr IVPB TITR [facility]; 5 MCG/KG/MIN PRN Reason: Protocol Last Titration: 10/22/16 12:00 Dose: 0 mcg/kg/min Vancomycin HCl 1,250 mg/ (Dextrose) 250 mls @ 166.667 mls/hr IVPB DAILY [facility] PRN Reason: Protocol Last Admin: 10/21/16 09:55 Dose: 166.667 mls/hr Imipenem/Cilastatin Sodium 500 (mg/ Sodium Chloride) 100 mls @ 100 mls/hr IVPB Q6H-IV [facility] PRN Reason: Protocol Last Admin: 10/22/16 08:46 Dose: 100 mls/hr Insulin Aspart (Novolog Vial Sliding Scale -) 1 vial SQ Q6HPO [facility] PRN Reason: Protocol Last Admin: 10/22/16 06:13 Dose: 2 units Insulin Detemir (Levemir Vial) 10 units SQ BIDI [facility] Last Admin: 10/22/16 06:14 Dose: 10 units Metoprolol Tartrate (Lopressor -) 12.5 mg PO TID [facility] Last Admin: 10/22/16 06:13 Dose: 12.5 mg ASSESSMENT AND PLAN: Acute Hypoxic Respiratory Failure Pneumonia Recent Influenza Severe Sepsis Acute Kidney Injury Lactic Acidosis +Troponins - ?Demand Ischemia from Sepsis LV Systolic Heart Failure HTN CAD DM Dementia - continue antibiotics per ID - free water via OGT - monitor urine output, creatinine - ASA, beta regina - taper Fio2 to keep Spo2 >90% - minimize sedation to assess mental status - start spontaneous breathing trials as tolerated when mental status improves - enteral feeds - DVT/GI prophylaxis - ICU monitoring critical care time spent in reviewing chart, evaluating patient and formulating plan 40 min
[2016-10-22] MEDS: VANCOMYCIN 1,250 MG in DEXTROSE 5%-WATER - 250 ML IVPB SCH (12:11)
[2016-10-22] MEDS: ASPIRIN 81 MG CHEWABLE TABLETS PO SCH (12:51)
--- NOTE | 2016-10-22 19:09 | PN ---
Progress Note (short form) - Note Progress Note: CC: NSTEMI s: no events overnight, remains minimally responsive. Current Medications Acetaminophen (Tylenol Suppository -) 650 mg [place] Q6H PRN PRN Reason: FEVER OR PAIN Last Admin: 10/21/16 16:53 Dose: 650 mg Aspirin (Asa -) 81 mg PO DAILY [facility] Last Admin: 10/22/16 12:51 Dose: 81 mg Atorvastatin Calcium (Lipitor -) 40 mg PO HS [facility] Last Admin: 10/21/16 22:45 Dose: 40 mg Chlorhexidine Gluconate (Hibiclens For Decolonization -) 1 applic TP HS [facility] Last Admin: 10/21/16 22:45 Dose: 1 applic Chlorhexidine Gluconate (Peridex -) 15 ml MM BID [facility] Last Admin: 10/22/16 09:20 Dose: 15 ml Heparin Sodium (Porcine) (Heparin -) 5,000 unit SQ BID [facility] Last Admin: 10/22/16 09:20 Dose: 5,000 unit Pantoprazole Sodium (Protonix 40mg Ivpb (Pre-Docked)) 100 mls @ 200 mls/hr IVPB DAILY [facility] Last Admin: 10/22/16 09:20 Dose: 200 mls/hr Propofol (Diprivan -) 100 mls @ 2.353 mls/hr IVPB TITR [facility]; 5 MCG/KG/MIN PRN Reason: Protocol Last Admin: 10/22/16 17:17 Dose: 3.294 mls/hr Propofol (Diprivan -) 100 mls @ 2.424 mls/hr IVPB TITR [facility]; 5 MCG/KG/MIN PRN Reason: Protocol Last Titration: 10/22/16 12:38 Dose: 5 mcg/kg/min Vancomycin HCl 1,250 mg/ (Dextrose) 250 mls @ 166.667 mls/hr IVPB DAILY [facility] PRN Reason: Protocol Last Admin: 10/22/16 12:11 Dose: 166.667 mls/hr Imipenem/Cilastatin Sodium 500 (mg/ Sodium Chloride) 100 mls @ 100 mls/hr IVPB Q6H-IV [facility] PRN Reason: Protocol Last Admin: 10/22/16 15:04 Dose: 100 mls/hr Insulin Aspart (Novolog Vial Sliding Scale -) 1 vial SQ Q6HPO [facility] PRN Reason: Protocol Last Admin: 10/22/16 17:16 Dose: 6 units Insulin Detemir (Levemir Vial) 10 units SQ BIDI [facility] Last Admin: 10/22/16 17:17 Dose: 10 units Metoprolol Tartrate (Lopressor -) 12.5 mg PO TID [facility] Last Admin: 10/22/16 15:02 Dose: 12.5 mg Vital Signs - 24 hr 10/21/16 10/21/16 10/21/16 19:18 20:00 21:24 Temperature Pulse Rate 98 H Respiratory 24 24 25 H Rate Blood Pressure 122/70 O2 Sat by Pulse 96 Oximetry (%) 10/21/16 10/22/16 10/22/16 22:00 00:00 00:29 Temperature 100.7 F H 100.4 F H Pulse Rate 94 H 98 H Respiratory 25 H 25 H 26 H Rate Blood Pressure 140/70 127/68 O2 Sat by Pulse 98 Oximetry (%) 10/22/16 10/22/16 10/22/16 00:31 02:00 03:35 Temperature 100.1 F H Pulse Rate 96 H 100 H Respiratory 29 H 26 H Rate Blood Pressure 144/77 O2 Sat by Pulse 97 Oximetry (%) 10/22/16 10/22/16 10/22/16 04:00 06:00 06:30 Temperature 99.7 F H Pulse Rate 98 H 92 H Respiratory 29 H 24 20 Rate Blood Pressure 134/74 132/74 O2 Sat by Pulse Oximetry (%) 10/22/16 10/22/16 10/22/16 08:00 09:00 09:20 Temperature 100.0 F H Pulse Rate 75 Respiratory 17 22 Rate Blood Pressure 124/64 O2 Sat by Pulse 97 95 Oximetry (%) 10/22/16 10/22/16 10/22/16 09:35 10:00 11:17 Temperature 100.1 F H Pulse Rate 88 78 Respiratory 21 Rate Blood Pressure 132/69 O2 Sat by Pulse 97 97 Oximetry (%) 10/22/16 10/22/16 10/22/16 11:55 12:00 12:09 Temperature Pulse Rate 93 H Respiratory 19 28 H Rate Blood Pressure 163/85 O2 Sat by Pulse 91 L Oximetry (%) 10/22/16 10/22/16 10/22/16 14:00 14:02 16:00 Temperature 100.2 F H Pulse Rate 108 H 80 Respiratory 28 H 21 22 Rate Blood Pressure 183/89 139/75 O2 Sat by Pulse Oximetry (%) 10/22/16 10/22/16 10/22/16 16:15 17:49 17:51 Temperature 99.3 F Pulse Rate 83 Respiratory 19 25 H Rate Blood Pressure 138/75 O2 Sat by Pulse 95 Oximetry (%) Intake & Output 10/20/16 10/21/16 10/22/16 10/23/16 07:59 07:59 07:59 07:59 Intake Total 3882 4022.8 4326.8 2460 Output Total 7897 072 4855 550 Balance 2582 3172.8 3176.8 1910 Weight 177 lb 2.136 oz 176 lb 6.4 oz 178 lb 9 oz intubated, sedated rrr s1s2 no mrg coarse bs anteriorly, vented. no jvd pos dp pt no jaundice diaphoresis no le e/c/c abd nd pos bs CBC, BMP 10/22/16 05:15 10/22/16 05:15 Laboratory Tests 10/21/16 10/22/16 05:25 05:15 Magnesium 2.1 Total Bilirubin 0.3 D AST 20 D ALT 20 Alkaline Phosphatase 107 Albumin 1.4 L 1.3 L tele: sr pvc's, couplets cxr: bibasilar infiltrates, slight congestion echo 10/2016: sev dilated lv, sev dec lvef, rv mod dilated, mod dec rv fcn, reina , mild mr est cct 36 mins 10/22 cxr unchanged from yesterday Assessment/Plan HTN - becomes hypertensive when tachypneic or off sedation, but pressures tend to drop again when sedation is resumed. If still hypertensive tomorrow on sedation would uptitrate metoprolol. acute hypoxic resp failure: -remains intubated -b/l infiltrates on cxr -suspect PNA (hi fever, recent + flu) >> chf. -cont abx per ID hi fever, sepsis -hemodynamically stable at present, without need for pressors JULIET: -initial creat 1.9, from 0.9-1.0 prior -? all sepsis related -cr now improved s/p abx, ivfs prior h/o CAD, elevated troponin: -initial trop 3.4, normal ck. Trop now trending down. -florid sepsis picture makes the elevated troponin likely due to sepsis direct myocardial injury, vs Type II MT from hypoxia/tachycardia/? transiently hypotensive in NH -ECG with ischemic changes (TWIs anteriorly)--also could all be secondary to above -cannot definitively rule out acute AWMI based on this ecg, however not likely given changes are improving, not evolving, on serial tracings; -echo here with severe dec lvef -nstemi s/p hep gtt x 72 hrs --> stopped 10/18, was off plavix while not taking po meds, con't to hold in light of clinical status. con't asa. -start statin and po bb, -cont tele -further ischemic eval based on clinical course NSVT: -intermittent recurrent brief runs on tele, -replete lytes prn -cont bb, 10/18, will uptitrate dose by increasing frequency. - 10/20 switched to po low dose metoprolol systolic chf, likely chronic: -echo here showing biventricular failure -currently no sig vol overload, cxr unchanged. -cont bb, start ACEI when bp tolerates -further ischemic eval based on clinical course Poor prognosis
--- NOTE | 2016-10-22 19:41 | PN ---
Physical Exam: SUBJECTIVE: Patient seen and examined at bed side in ICU. intubated and sedated. continues to be poorly arousable, with propofol failed weening trial. Low grade temp. Slightly decreased WBCs OBJECTIVE: Vital Signs Period Temp Pulse Resp BP Sys/Machado Pulse Ox Last 24 Hr 99.3 F-100.7 F 75-108 17-29 122-183/64-89 91-98 GENERAL: intubated and sedated. in no acute distress, minimally responsive to tactile stim, nonverbal HEAD: Normal with no signs of trauma. EYES: pin point pupils, no sclera anicteric, conjunctiva clear. EARS, NOSE, THROAT: Ears normal, nares patent, oropharynx clear without exudates. Moist mucous membranes. ET tube inplace. NECK: Normal range of motion, supple without lymphadenopathy, JVD, or masses. LUNGS: distant breath sounds, + crackles, No wheezes, and no crackles. No accessory muscle use. HEART: distant heart sounds no murmurs appreciated. ABDOMEN: Soft, nontender, not distended, normoactive bowel sounds, no guarding, no rebound, no masses. MUSCULOSKELETAL: Normal range of motion at all joints. No bony deformities or tenderness. LOWER EXTREMITIES: 2+ pulses, warm, well-perfused. No calf tenderness. trace peripheral edema. PSYCHIATRIC: intubated sedated SKIN: Warm, dry, normal turgor, no rashes or lesions noted. Laboratory Results - last 24 hr 10/21/16 10/21/16 10/22/16 16:32 23:39 05:15 WBC 15.2 H RBC 4.22 Hgb 11.6 L Hct 36.0 MCV 85.3 MCHC 32.2 RDW 14.5 Plt Count 321 MPV 9.7 Neutrophils % 86.0 H Lymphocytes % 4.7 L D Monocytes % 7.1 Eosinophils % 2.0 D Basophils % 0.2 Puncture Site ABG pH ABG pCO2 at Pt Temp ABG pO2 at Pt Temp ABG HCO3 ABG O2 Sat (Measured) ABG O2 Content ABG Base Excess Alexandro Test O2 Delivery Device Oxygen Flow Rate Vent Mode Vent Rate Mechanical Rate PEEP Pressure Support Vent Sodium Potassium Chloride Carbon Dioxide Anion Gap BUN Creatinine Creat Clearance w eGFR POC Glucometer 250.52243 285.97268 Random Glucose Calcium Phosphorus Magnesium Total Bilirubin AST ALT Alkaline Phosphatase Total Protein Albumin 10/22/16 10/22/16 10/22/16 05:15 05:42 07:10 WBC RBC Hgb Hct MCV MCHC RDW Plt Count MPV Neutrophils % Lymphocytes % Monocytes % Eosinophils % Basophils % Puncture Site Right radial ABG pH 7.44 ABG pCO2 at Pt Temp 38.6 ABG pO2 at Pt Temp 101.0 H D ABG HCO3 25.6 ABG O2 Sat (Measured) 97.4 ABG O2 Content 18.2 ABG Base Excess 1.9 Alexandro Test Positive O2 Delivery Device Vent Oxygen Flow Rate 50 Vent Mode A/c Vent Rate 12 Mechanical Rate Yes PEEP 5.0 Pressure Support Vent 500 Sodium 146 H Potassium 4.6 Chloride 111 H Carbon Dioxide 27 Anion Gap 8 BUN 28 H Creatinine 0.7 Creat Clearance w eGFR > 60 POC Glucometer 193.08214 Random Glucose 162 H D Calcium 7.6 L Phosphorus 2.5 Magnesium 2.1 Total Bilirubin 0.3 D AST 20 D ALT 20 Alkaline Phosphatase 107 Total Protein 4.9 L Albumin 1.3 L 10/22/16 10/22/16 12:23 16:58 WBC RBC Hgb Hct MCV MCHC RDW Plt Count MPV Neutrophils % Lymphocytes % Monocytes % Eosinophils % Basophils % Puncture Site ABG pH ABG pCO2 at Pt Temp ABG pO2 at Pt Temp ABG HCO3 ABG O2 Sat (Measured) ABG O2 Content ABG Base Excess Alexandro Test O2 Delivery Device Oxygen Flow Rate Vent Mode Vent Rate Mechanical Rate PEEP Pressure Support Vent Sodium Potassium Chloride Carbon Dioxide Anion Gap BUN Creatinine Creat Clearance w eGFR POC Glucometer 260.81509 259.17980 Random Glucose Calcium Phosphorus Magnesium Total Bilirubin AST ALT Alkaline Phosphatase Total Protein Albumin Active Medications Generic Name Dose Route Start Last Admin Trade Name Freq PRN Reason Stop Dose Admin Acetaminophen 650 mg 10/15/16 16:23 10/21/16 16:53 Tylenol Suppository - [place] 650 mg Q6H PRN Administration FEVER OR PAIN Aspirin 81 mg 10/22/16 12:00 10/22/16 12:51 Asa - PO 81 mg DAILY [facility] Administration Atorvastatin Calcium 40 mg 10/20/16 22:00 10/21/16 22:45 Lipitor - PO 40 mg HS [facility] Administration Chlorhexidine Gluconate 1 applic 10/15/16 22:00 10/21/16 22:45 Hibiclens For Decolonization - TP 1 applic HS [facility] Administration Chlorhexidine Gluconate 15 ml 10/17/16 22:00 10/22/16 09:20 Peridex - MM 15 ml BID [facility] Administration Heparin Sodium (Porcine) 5,000 unit 10/18/16 22:00 10/22/16 09:20 Heparin - SQ 5,000 unit BID [facility] Administration Pantoprazole Sodium 100 mls @ 200 mls/hr 10/15/16 15:15 10/22/16 09:20 Protonix 40mg Ivpb (Pre-Docked) IVPB 200 mls/hr DAILY [facility] Administration Propofol 100 mls @ 2.353 mls/hr 10/15/16 16:00 10/22/16 17:17 Diprivan - IVPB 3.294 mls/hr TITR [facility] Administration Protocol 5 MCG/KG/MIN Propofol 100 mls @ 2.424 mls/hr 10/19/16 23:30 10/22/16 12:38 Diprivan - IVPB 5 mcg/kg/min TITR [facility] Titration Protocol 5 MCG/KG/MIN Vancomycin HCl 1,250 mg/ 250 mls @ 166.667 mls/hr 10/21/16 10:00 10/22/16 12:11 Dextrose IVPB 166.667 mls/hr DAILY [facility] Administration Protocol Imipenem/Cilastatin Sodium 500 100 mls @ 100 mls/hr 10/21/16 09:00 10/22/16 15: 04 mg/ Sodium Chloride IVPB 100 mls/hr Q6H-IV [facility] Administration Protocol Insulin Aspart 1 vial 10/19/16 00:00 10/22/16 17:16 Novolog Vial Sliding Scale - SQ 6 units Q6HPO [facility] Administration Protocol Insulin Detemir 10 units 10/19/16 07:00 10/22/16 17:17 Levemir Vial SQ 10 units BIDI [facility] Administration Metoprolol Tartrate 12.5 mg 10/20/16 22:00 10/22/16 15:02 Lopressor - PO 12.5 mg TID [facility] Administration ASSESSMENT/PLAN: 86 year old male from [facility] with PMH of HTN, HLD, CAD s/p bare metal stent, afib, L atrial lipoma, latent TB, Alzheimer's dementia and DM who was recently discharged for Influenza A and treated with Tamiflu 10/11/16 who presents to the ER via EMS for worsening dypsnea and confusion. Sever sepsis 2/2 HCAP, slightly wbc trending down, fever last night, possible aspirant due to his Alzheimer. chest chest xray improved ID consult. PCN allergy noted, restart antibiotics day 1 Vanco and Imipenem f/u cultures Acute hypoxic respiratory failure CXR read with b/l lower lobe infiltrate, PNA vs pulmonary edema vs aspiration pneumonia Patient currently mechanically ventilated - start spontaneous breathing trials as tolerated when mental status improves minimize sedation to assess mental status Taper FI O2, keep O2 >90% ABG in AM DKA resolved Troponins - Demand Ischemia 2/2 Sepsis echo here with severe dec lvef- trend troponins, echo shows EF of 29.6%, left ventricular systolic function severely reduced. Left atrium borderline dilated. RV mildly dilated. RV size moderately reduced. None acute wall GA stemi Dementia is relative contraindication to thrombolysis cont metoprolol 12.5 and will watch for hypotension cont statin, beta blockers, and ASA JULIET,improving prerenal azotemia 2/2 sepsis monitor urine output and creatinine free water feeds Dementia as per medical records, baseline verbal and AOx1 currently cannot assess, sedated and intubated minimize sedation to assess mental status HTN as per cardiac, Lopressor given if BP <120/80, hold antihypertensives hypernatremea continue free water NGT FEN NPO, enteral feeds free water per NG tube replete electrolytes as needed, keep mag >2.0, replete phosphorus DVT prophylaxis on heparin 5,000 units SQ TID GI prophylaxis - protonix Dispo: We will continue to follow the patient. Thank you for this consultative opportunity. Visit type - Emergency Visit Emergency Visit: Yes ED Registration Date: 10/15/16 Care time: The patient presented to the Emergency Department on the above date and was hospitalized for further evaluation of their emergent condition. - New Patient This patient is new to me today: No - Critical Care Critical Care patient: Yes Total Critical Care Time (in minutes): 42 Critical Care Statement: The care of this patient involved high complexity decision making to prevent further life threatening deterioration of the patient 's condition and/or to evalute & treat vital organ system(s) failure or risk of failure.
[2016-10-22] MEDS: CHLORHEXIDINE GLUCONATE 4% CLEANSER FOR DECOLONIZATION TP SCH (21:51)
[2016-10-22] MEDS: ATORVASTATIN CA 40 MG TABLET (FP) PO SCH (21:52)
[2016-10-23] MEDS: INSULIN SLIDING SCALE (NOVOLOG) 1 VIAL SQ SCH ×4 (00:04→18:14)
[2016-10-23] MEDS: PROPOFOL 100 ML IVPB SCH ×3 (00:06→19:27)
[2016-10-23] MEDS: IMIPENEM/CILASTATIN SODIUM 500 MG in SODIUM CHLORIDE 100 ML IVPB SCH ×4 (03:53→20:48)
[2016-10-23] MEDS: INSULIN DETEMIR 100 UNITS/ML MDV SQ SCH ×2 (06:08→18:14)
[2016-10-23] MEDS: METOPROLOL TARTRATE 25 MG TABLET (FP) PO SCH ×3 (06:08→22:13)
[2016-10-23 06:37] LABS: MCH 27.8 pg (25.7-33.7); MEAN CELL VOLUME 84.2 fl (80-96); MEAN PLT VOLUME 9.4 fl (7.5-11.1); PLATELET COUNT 304 K/MM3 (134-434); RDW 14.4 % (11.9-15.9); WHITE BLOOD COUNT 14.2 K/mm3 (4.0-10.0)
[2016-10-23 06:47] LABS: CALCIUM 7.7 mg/dL (8.5-10.1); CREATININE 0.6 mg/dL (0.7-1.3); MAGNESIUM 1.9 mg/dL (1.8-2.4); PHOSPHOROUS 2.5 mg/dL (2.5-4.9)
--- NOTE | 2016-10-23 07:21 | PN ---
Progress Note, Physician History of Present Illness: no new changes remains intubated /sedated failed ween trial minimally responsive attempts to open right eye with verbal stim + corneals, neck supple no response to tactile stim R arm withdraws r foot, R planar up - Current Medication List Current Medications: Active Medications Acetaminophen (Tylenol Suppository -) 650 mg NM Q6H PRN PRN Reason: FEVER OR PAIN Last Admin: 10/21/16 16:53 Dose: 650 mg Aspirin (Asa -) 81 mg PO DAILY [facility] Last Admin: 10/22/16 12:51 Dose: 81 mg Atorvastatin Calcium (Lipitor -) 40 mg PO HS [facility] Last Admin: 10/22/16 21:52 Dose: 40 mg Chlorhexidine Gluconate (Hibiclens For Decolonization -) 1 applic TP HS [facility] Last Admin: 10/22/16 21:51 Dose: 1 applic Chlorhexidine Gluconate (Peridex -) 15 ml MM BID [facility] Last Admin: 10/22/16 21:50 Dose: 15 ml Heparin Sodium (Porcine) (Heparin -) 5,000 unit SQ BID [facility] Last Admin: 10/22/16 21:50 Dose: 5,000 unit Pantoprazole Sodium (Protonix 40mg Ivpb (Pre-Docked)) 100 mls @ 200 mls/hr IVPB DAILY [facility] Last Admin: 10/22/16 09:20 Dose: 200 mls/hr Propofol (Diprivan -) 100 mls @ 2.353 mls/hr IVPB TITR [facility]; 5 MCG/KG/MIN PRN Reason: Protocol Last Admin: 10/22/16 17:17 Dose: 3.294 mls/hr Propofol (Diprivan -) 100 mls @ 2.424 mls/hr IVPB TITR [facility]; 5 MCG/KG/MIN PRN Reason: Protocol Last Admin: 10/23/16 00:06 Dose: 4.848 mls/hr Vancomycin HCl 1,250 mg/ (Dextrose) 250 mls @ 166.667 mls/hr IVPB DAILY [facility] PRN Reason: Protocol Last Admin: 10/22/16 12:11 Dose: 166.667 mls/hr Imipenem/Cilastatin Sodium 500 (mg/ Sodium Chloride) 100 mls @ 100 mls/hr IVPB Q6H-IV [facility] PRN Reason: Protocol Last Admin: 10/23/16 03:53 Dose: 100 mls/hr Insulin Aspart (Novolog Vial Sliding Scale -) 1 vial SQ Q6HPO [facility] PRN Reason: Protocol Last Admin: 10/23/16 06:08 Dose: 4 units Insulin Detemir (Levemir Vial) 10 units SQ BIDI [facility] Last Admin: 10/23/16 06:08 Dose: 10 units Metoprolol Tartrate (Lopressor -) 12.5 mg PO TID [facility] Last Admin: 10/23/16 06:08 Dose: 12.5 mg - Objective Vital Signs: Vital Signs Temperature 97.2 F L 10/23/16 06:00 Pulse Rate 84 10/23/16 06:00 Respiratory Rate 18 10/23/16 06:00 Blood Pressure 151/78 10/23/16 06:00 O2 Sat by Pulse Oximetry (%) 95 10/22/16 22:00 Neurological: Yes: Other (see above) Labs: CBC, BMP 10/23/16 05:15 INR, PTT INR 1.24 (0.82-1.09) H 10/15/16 09:16 Problem List - Problems (1) Acute respiratory failure with hypoxia Code(s): J96.01 - ACUTE RESPIRATORY FAILURE WITH HYPOXIA (2) Cerebrovascular small vessel disease Code(s): I67.9 - CEREBROVASCULAR DISEASE, UNSPECIFIED (3) Encephalopathy acute Code(s): G93.40 - ENCEPHALOPATHY, UNSPECIFIED (4) Sepsis Code(s): A41.9 - SEPSIS, UNSPECIFIED ORGANISM Qualifiers: Sepsis type: sepsis due to unspecified organism Qualified Code(s): A41.9 - Sepsis, unspecified organism Assessment/Plan 86 year old male from [facility] with PMH of HTN, HLD, CAD s/p bare metal stent, afib, L atrial lipoma, latent TB, Alzheimer's dementia and DM who was recently discharged for Influenza A and treated with Tamiflu 10/11/16, now admitted for resp failure continues to be sedated and poorly arousable ;likely acute respiratory failure /hypoxic playing a role in encephalopathy, last HD CT chronic ischemic disease, no clear focality to suggest another ischemic event though difficult to decipher on sedation , ideally to taper if possible no evidence of seizures being treated with ABX poor prognosis given prolonged encepahlopathy, with underlying dementia and multiple comorbidities Dr Kiran
--- NOTE | 2016-10-23 08:14 | PN ---
Progress Note (short form) - Note Progress Note: patient seen and examined in the ICU Overall condition remains same Opens eyes today on calling names Remains vent dependent Vital Signs Temp 97.2 F L 10/23/16 06:00 Pulse 80 10/23/16 08:00 Resp 20 10/23/16 08:00 BP 161/83 10/23/16 08:00 Pulse Ox 94 L 10/23/16 08:00 Intake & Output 10/22/16 10/22/16 10/23/16 11:59 23:59 11:59 Intake Total 1704 2610 2240 Output Total 600 950 400 Balance 1104 1660 1840 Weight 178 lb 9 oz 189 lb 9.561 oz Intake: IV 60 40 60 Diprivan - 100 ml @ 5 MCG 60 40 60 /KG/MIN 2.424 mls/hr IVPB TITR [facility] Rx#:[id number] IVPB 200 550 200 Tube Feeding 744 720 780 Tube Irrigant 700 1300 1200 Output: Urine 600 950 400 Palacio 600 950 400 Other: Voiding Method Indwelling Catheter Indwelling Catheter Bowel Movement No Yes: small pasty brown Yes: small pasty brown Weight Measurement Method [facility] Active Medications Acetaminophen (Tylenol Suppository -) 650 mg AL Q6H PRN PRN Reason: FEVER OR PAIN Last Admin: 10/21/16 16:53 Dose: 650 mg Aspirin (Asa -) 81 mg PO DAILY [facility] Last Admin: 10/22/16 12:51 Dose: 81 mg Atorvastatin Calcium (Lipitor -) 40 mg PO HS [facility] Last Admin: 10/22/16 21:52 Dose: 40 mg Chlorhexidine Gluconate (Hibiclens For Decolonization -) 1 applic TP HS [facility] Last Admin: 10/22/16 21:51 Dose: 1 applic Chlorhexidine Gluconate (Peridex -) 15 ml MM BID [facility] Last Admin: 10/22/16 21:50 Dose: 15 ml Heparin Sodium (Porcine) (Heparin -) 5,000 unit SQ BID [facility] Last Admin: 10/22/16 21:50 Dose: 5,000 unit Pantoprazole Sodium (Protonix 40mg Ivpb (Pre-Docked)) 100 mls @ 200 mls/hr IVPB DAILY [facility] Last Admin: 10/22/16 09:20 Dose: 200 mls/hr Propofol (Diprivan -) 100 mls @ 2.353 mls/hr IVPB TITR [facility]; 5 MCG/KG/MIN PRN Reason: Protocol Last Admin: 10/22/16 17:17 Dose: 3.294 mls/hr Propofol (Diprivan -) 100 mls @ 2.424 mls/hr IVPB TITR [facility]; 5 MCG/KG/MIN PRN Reason: Protocol Last Admin: 10/23/16 00:06 Dose: 4.848 mls/hr Vancomycin HCl 1,250 mg/ (Dextrose) 250 mls @ 166.667 mls/hr IVPB DAILY [facility] PRN Reason: Protocol Last Admin: 10/22/16 12:11 Dose: 166.667 mls/hr Imipenem/Cilastatin Sodium 500 (mg/ Sodium Chloride) 100 mls @ 100 mls/hr IVPB Q6H-IV [facility] PRN Reason: Protocol Last Admin: 10/23/16 03:53 Dose: 100 mls/hr Insulin Aspart (Novolog Vial Sliding Scale -) 1 vial SQ Q6HPO [facility] PRN Reason: Protocol Last Admin: 10/23/16 06:08 Dose: 4 units Insulin Detemir (Levemir Vial) 10 units SQ BIDI [facility] Last Admin: 10/23/16 06:08 Dose: 10 units Metoprolol Tartrate (Lopressor -) 12.5 mg PO TID [facility] Last Admin: 10/23/16 06:08 Dose: 12.5 mg CBC, BMP 10/23/16 05:15 10/23/16 05:15 Physical Exam Constitutional: Yes: Intubated./ Cardiovascular: Yes: Regular Rate and Rhythm Respiratory: Yes: bilateral breath sounds anteriorly Gastrointestinal: Yes: Normal Bowel Sounds, Soft. No: Distention, Tenderness Edema: Yes Edema: LLE: 1+, RLE: 1+ Neurological: Yes: sedated Assessment and Plan Continue present care. Abx. Follow up CXR Weaning trials as tolerated.--Failed yesterday continue other medications Overall condition guarded. Will follow. Problem List - Problems (1) Acute respiratory failure with hypoxia Code(s): J96.01 - ACUTE RESPIRATORY FAILURE WITH HYPOXIA (2) Cerebrovascular disease Code(s): I67.9 - CEREBROVASCULAR DISEASE, UNSPECIFIED (3) Cerebrovascular small vessel disease Code(s): I67.9 - CEREBROVASCULAR DISEASE, UNSPECIFIED (4) Healthcare-associated pneumonia Code(s): J18.9 - PNEUMONIA, UNSPECIFIED ORGANISM (5) Sepsis Code(s): A41.9 - SEPSIS, UNSPECIFIED ORGANISM Qualifiers: Qualified Code(s): A41.9 - Sepsis, unspecified organism (6) Alzheimer disease Code(s): G30.9 - ALZHEIMER'S DISEASE, UNSPECIFIED Qualifiers: Qualified Code(s): G30.0 - Alzheimer's disease with early onset; F02.81 - Dementia in other diseases classified elsewhere with behavioral disturbance (7) Lactic acid blood increased Code(s): R79.89 - OTHER SPECIFIED ABNORMAL FINDINGS OF BLOOD CHEMISTRY
[2016-10-23] MEDS ORDERED: PT OWN MED DRAWER 7, Y5N ONE ×2 (09:08→20:45)
--- NOTE | 2016-10-23 09:25 | PN ---
Progress Note (short form) - Note Progress Note: remains intubated off sedation opens eyes moves right hand and foot Vital Signs Period Temp Pulse Resp BP Sys/Machado Pulse Ox Last 24 Hr 97.2 F-100.2 F 70-108 18-29 130-183/57-89 91-97 cor-rrr lungs decreased bs at bases abd soft,nt ext no edema +boyle CBC, BMP 10/23/16 05:15 10/23/16 05:15 Microbiology 10/21/16 08:40 Blood Culture - Preliminary Blood - Peripheral Venous NO GROWTH OBTAINED AFTER 48 HOURS, INCUBATION TO CONTINUE FOR 3 DAYS. 10/21/16 12:30 Gram Stain - Final Sputum - Endotrachea Suction/Ventilator Sputum Culture - Preliminary Yeast Like Organism 10/21/16 08:30 Urine Culture - Final Urine - Urine Boyle NO GROWTH OBTAINED 10/15/16 10:45 Respiratory Virus Panel - Preliminary Nasopharyngeal Swab 10/21/16 09:50 Blood Culture - Preliminary Blood - Peripheral Venous NO GROWTH OBTAINED AFTER 24 HOURS, INCUBATION TO CONTINUE FOR 4 DAYS. cxray unchanged Current Medications Acetaminophen (Tylenol Suppository -) 650 mg OR Q6H PRN PRN Reason: FEVER OR PAIN Last Admin: 10/21/16 16:53 Dose: 650 mg Aspirin (Asa -) 81 mg PO DAILY [facility] Last Admin: 10/22/16 12:51 Dose: 81 mg Atorvastatin Calcium (Lipitor -) 40 mg PO HS [facility] Last Admin: 10/22/16 21:52 Dose: 40 mg Chlorhexidine Gluconate (Hibiclens For Decolonization -) 1 applic TP HS [facility] Last Admin: 10/22/16 21:51 Dose: 1 applic Chlorhexidine Gluconate (Peridex -) 15 ml MM BID [facility] Last Admin: 10/22/16 21:50 Dose: 15 ml Heparin Sodium (Porcine) (Heparin -) 5,000 unit SQ BID [facility] Last Admin: 10/22/16 21:50 Dose: 5,000 unit Pantoprazole Sodium (Protonix 40mg Ivpb (Pre-Docked)) 100 mls @ 200 mls/hr IVPB DAILY [facility] Last Admin: 10/22/16 09:20 Dose: 200 mls/hr Propofol (Diprivan -) 100 mls @ 2.353 mls/hr IVPB TITR [facility]; 5 MCG/KG/MIN PRN Reason: Protocol Last Admin: 10/22/16 17:17 Dose: 3.294 mls/hr Propofol (Diprivan -) 100 mls @ 2.424 mls/hr IVPB TITR [facility]; 5 MCG/KG/MIN PRN Reason: Protocol Last Admin: 10/23/16 00:06 Dose: 4.848 mls/hr Vancomycin HCl 1,250 mg/ (Dextrose) 250 mls @ 166.667 mls/hr IVPB DAILY [facility] PRN Reason: Protocol Last Admin: 10/22/16 12:11 Dose: 166.667 mls/hr Imipenem/Cilastatin Sodium 500 (mg/ Sodium Chloride) 100 mls @ 100 mls/hr IVPB Q6H-IV [facility] PRN Reason: Protocol Last Admin: 10/23/16 03:53 Dose: 100 mls/hr Insulin Aspart (Novolog Vial Sliding Scale -) 1 vial SQ Q6HPO [facility] PRN Reason: Protocol Last Admin: 10/23/16 06:08 Dose: 4 units Insulin Detemir (Levemir Vial) 10 units SQ BIDI [facility] Last Admin: 10/23/16 06:08 Dose: 10 units Metoprolol Tartrate (Lopressor -) 12.5 mg PO TID [facility] Last Admin: 10/23/16 06:08 Dose: 12.5 mg a/p respiratory failure pulmonary infiltrates fevers ?cva d/c vancomycin no MRSA cultures noted, d/c imipenem, ceftriaxone/flagyl fevers and wbc trending down
[2016-10-23] MEDS: PANTOPRAZOLE SODIUM 100 ML IVPB SCH (10:19)
[2016-10-23] MEDS: CHLORHEXIDINE GLUCONATE 0.12% 15ML CUP MM SCH ×2 (10:20→22:15)
[2016-10-23] MEDS: ASPIRIN 81 MG CHEWABLE TABLETS PO SCH (10:20)
[2016-10-23] MEDS: HEPARIN NA (PORCINE) 5,000 UNITS/ML 1ML VIAL SQ SCH ×2 (10:20→22:15)
[2016-10-23] MEDS: VANCOMYCIN 1,250 MG in DEXTROSE 5%-WATER - 250 ML IVPB SCH (10:26)
[2016-10-23] MEDS ORDERED: MAGNESIUM SULF 50% (8.12 MEQ/2 ML-1 GM VIAL) IVPB ONE (12:15)
--- NOTE | 2016-10-23 12:23 | PN ---
Teaching Attending Note Name of Resident: Madeline Mayo ATTENDING PHYSICIAN STATEMENT I saw and evaluated the patient. I reviewed the resident's note and discussed the case with the resident. I agree with the resident's findings and plan as documented. SUBJECTIVE: Pt seen and examined in the ICU. Remains intubated, sedated. When placed on CPAP /PS even with 20cm PS becomes very tachypneic with abdominal breathing almost immediately. Fever curve trending down. OBJECTIVE: Last Vital Signs Temp Pulse Resp BP Pulse Ox 99.4 F 101 H 19 147/82 94 L 10/23/16 09:54 10/23/16 09:54 10/23/16 12:04 10/23/16 09:54 10/23/16 09:51 Intake & Output 10/20/16 10/21/16 10/22/16 10/23/16 23:59 23:59 23:59 23:59 Intake Total 4170 4325.6 4314 2240 Output Total 1100 1000 1550 400 Balance 3070 3325.6 2764 1840 Weight 177 lb 2.136 oz 176 lb 6.4 oz 178 lb 9 oz 189 lb 9.561 oz Gen: intubated, sedated Heart: tachycardic, regular Lung: scattered rhonchi Abd: soft, nontender Ext: trace edema CBC, BMP 10/23/16 05:15 10/23/16 05:15 Active Medications Acetaminophen (Tylenol Suppository -) 650 mg ND Q6H PRN PRN Reason: FEVER OR PAIN Last Admin: 10/21/16 16:53 Dose: 650 mg Aspirin (Asa -) 81 mg PO DAILY [facility] Last Admin: 10/23/16 10:20 Dose: 81 mg Atorvastatin Calcium (Lipitor -) 40 mg PO HS [facility] Last Admin: 10/22/16 21:52 Dose: 40 mg Chlorhexidine Gluconate (Hibiclens For Decolonization -) 1 applic TP HS [facility] Last Admin: 10/22/16 21:51 Dose: 1 applic Chlorhexidine Gluconate (Peridex -) 15 ml MM BID [facility] Last Admin: 10/23/16 10:20 Dose: 15 ml Heparin Sodium (Porcine) (Heparin -) 5,000 unit SQ BID [facility] Last Admin: 10/23/16 10:20 Dose: 5,000 unit Pantoprazole Sodium (Protonix 40mg Ivpb (Pre-Docked)) 100 mls @ 200 mls/hr IVPB DAILY [facility] Last Admin: 10/23/16 10:19 Dose: 200 mls/hr Propofol (Diprivan -) 100 mls @ 2.353 mls/hr IVPB TITR [facility]; 5 MCG/KG/MIN PRN Reason: Protocol Last Titration: 10/23/16 10:00 Dose: 7 mcg/kg/min Propofol (Diprivan -) 100 mls @ 2.424 mls/hr IVPB TITR [facility]; 5 MCG/KG/MIN PRN Reason: Protocol Last Admin: 10/23/16 00:06 Dose: 4.848 mls/hr Vancomycin HCl 1,250 mg/ (Dextrose) 250 mls @ 166.667 mls/hr IVPB DAILY [facility] PRN Reason: Protocol Last Admin: 10/23/16 10:26 Dose: 166.667 mls/hr Imipenem/Cilastatin Sodium 500 (mg/ Sodium Chloride) 100 mls @ 100 mls/hr IVPB Q6H-IV [facility] PRN Reason: Protocol Last Admin: 10/23/16 10:19 Dose: 100 mls/hr Insulin Aspart (Novolog Vial Sliding Scale -) 1 vial SQ Q6HPO [facility] PRN Reason: Protocol Last Admin: 10/23/16 06:08 Dose: 4 units Insulin Detemir (Levemir Vial) 10 units SQ BIDI [facility] Last Admin: 10/23/16 06:08 Dose: 10 units Metoprolol Tartrate (Lopressor -) 12.5 mg PO TID [facility] Last Admin: 10/23/16 06:08 Dose: 12.5 mg ASSESSMENT AND PLAN: Acute Hypoxic Respiratory Failure Pneumonia Recent Influenza Severe Sepsis Acute Kidney Injury Lactic Acidosis +Troponins - ?Demand Ischemia from Sepsis LV Systolic Heart Failure HTN CAD DM Dementia - continue antibiotics per ID - monitor urine output, creatinine - ASA, beta regina - taper Fio2 to keep Spo2 >90% - minimize sedation to assess mental status - spontaneous breathing trials as tolerated - enteral feeds - DVT/GI prophylaxis - continue ICU monitoring - does not tolerate CPAP/PS even with high PS, likelihood of weaning off vent is unlikely in short term, start discussions regarding goals of care as pt will likely need tracheostomy critical care time spent in reviewing chart, evaluating patient and formulating plan 40 min
--- NOTE | 2016-10-23 14:31 | PN ---
Physical Exam: SUBJECTIVE: Patient seen and examined at bed side in ICU. no new changes lightly sedated and intubated, responsive to verbal and tachtile stimuli, opens eyes. failed weening trial yesterday patient moving right UE, not moving left upper and lower ext. Daughter on his side, discussed goal of care, and plan. daughter is not against tracheotomy and would like patient to be full code. Dr kalyani hurst consulted. OBJECTIVE: Vital Signs Period Temp Pulse Resp BP Sys/Machado Pulse Ox Last 24 Hr 97.2 F-100.2 F 70-108 18-30 130-183/57-89 94-96 GENERAL: Intubated and sedated. responsive to verbal and tachtile stimuli, In no acute distress, minimally responsive to tactile stimuli, nonverbal HEAD: Normal with no signs of trauma. EYES: pin point pupils, no sclera anicteric, conjunctiva clear. EARS, NOSE, THROAT: Ears normal, nares patent, oropharynx clear without exudates. Moist mucous membranes. ET tube inplace. NECK: Normal range of motion, supple without lymphadenopathy, JVD, or masses. LUNGS: distant breath sounds, + crackles, No wheezes, and no crackles. No accessory muscle use. HEART: distant heart sounds no murmurs appreciated. ABDOMEN: Soft, nontender, not distended, normoactive bowel sounds, no guarding, no rebound, no masses. MUSCULOSKELETAL: moves right upper ext, no tmove Left upper and lower ext. LOWER EXTREMITIES: 2+ pulses, warm, well-perfused. No calf tenderness. trace peripheral edema. PSYCHIATRIC: intubated sedated SKIN: Warm, dry, normal turgor, no rashes or lesions noted. Laboratory Results - last 24 hr 10/22/16 10/22/16 10/23/16 16:58 23:59 05:15 WBC 14.2 H RBC 4.26 Hgb 11.9 Hct 35.9 MCV 84.2 MCHC 33.0 RDW 14.4 Plt Count 304 MPV 9.4 Sodium Potassium Chloride Carbon Dioxide Anion Gap BUN Creatinine POC Glucometer 259.29124 248.19200 Random Glucose Calcium Phosphorus Magnesium 10/23/16 10/23/16 10/23/16 05:15 05:44 12:36 WBC RBC Hgb Hct MCV MCHC RDW Plt Count MPV Sodium 141 Potassium 4.6 Chloride 106 Carbon Dioxide 29 Anion Gap 6 L BUN 27 H Creatinine 0.6 L POC Glucometer 229.41044 250.77246 Random Glucose 192 H Calcium 7.7 L Phosphorus 2.5 Magnesium 1.9 Active Medications Generic Name Dose Route Start Last Admin Trade Name Freq PRN Reason Stop Dose Admin Acetaminophen 650 mg 10/15/16 16:23 10/21/16 16:53 Tylenol Suppository - [place] 650 mg Q6H PRN Administration FEVER OR PAIN Aspirin 81 mg 10/22/16 12:00 10/23/16 10:20 Asa - PO 81 mg DAILY [facility] Administration Atorvastatin Calcium 40 mg 10/20/16 22:00 10/22/16 21:52 Lipitor - PO 40 mg HS [facility] Administration Chlorhexidine Gluconate 1 applic 10/15/16 22:00 10/22/16 21:51 Hibiclens For Decolonization - TP 1 applic HS [facility] Administration Chlorhexidine Gluconate 15 ml 10/17/16 22:00 10/23/16 10:20 Peridex - MM 15 ml BID [facility] Administration Heparin Sodium (Porcine) 5,000 unit 10/18/16 22:00 10/23/16 10:20 Heparin - SQ 5,000 unit BID [facility] Administration Pantoprazole Sodium 100 mls @ 200 mls/hr 10/15/16 15:15 10/23/16 10:19 Protonix 40mg Ivpb (Pre-Docked) IVPB 200 mls/hr DAILY [facility] Administration Propofol 100 mls @ 2.353 mls/hr 10/15/16 16:00 10/23/16 10:00 Diprivan - IVPB 7 mcg/kg/min TITR [facility] Titration Protocol 5 MCG/KG/MIN Propofol 100 mls @ 2.424 mls/hr 10/19/16 23:30 10/23/16 00:06 Diprivan - IVPB 4.848 mls/hr TITR [facility] Administration Protocol 5 MCG/KG/MIN Vancomycin HCl 1,250 mg/ 250 mls @ 166.667 mls/hr 10/21/16 10:00 10/23/16 10:26 Dextrose IVPB 166.667 mls/hr DAILY [facility] Administration Protocol Imipenem/Cilastatin Sodium 500 100 mls @ 100 mls/hr 10/21/16 09:00 10/23/16 10: 19 mg/ Sodium Chloride IVPB 100 mls/hr Q6H-IV [facility] Administration Protocol Insulin Aspart 1 vial 10/19/16 00:00 10/23/16 12:48 Novolog Vial Sliding Scale - SQ 4 units Q6HPO [facility] Administration Protocol Insulin Detemir 10 units 10/19/16 07:00 10/23/16 06:08 Levemir Vial SQ 10 units BIDI [facility] Administration Metoprolol Tartrate 12.5 mg 10/20/16 22:00 10/23/16 13:12 Lopressor - PO 12.5 mg TID [facility] Administration ASSESSMENT/PLAN: 86 year old male from [facility] with PMH of HTN, HLD, CAD s/p bare metal stent, afib, L atrial lipoma, latent TB, Alzheimer's dementia and DM who was recently discharged for Influenza A and treated with Tamiflu 10/11/16 who presents to the ER via EMS for worsening dypsnea and confusion. Sever sepsis 2/2 HCAP, slightly wbc trending down, fever last night, possible aspirant due to his Alzheimer. chest chest xray inc bibaselir changes. ID consult. PCN allergy noted, restart antibiotics day 1 Vanco and Imipenem f/u cultures Acute hypoxic respiratory failure CXR read with b/l lower lobe infiltrate, PNA vs pulmonary edema vs aspiration pneumonia Patient currently mechanically ventilated - patient difficult to to ween, start spontaneous breathing trials as tolerated when mental status improves minimize sedation to assess mental status Taper FI O2, keep O2 >90% ABG in AM Dr kalyani hurst consulted for tracheotomy DKA resolved Troponins - Demand Ischemia 2/2 Sepsis echo here with severe dec lvef- trend troponins, echo shows EF of 29.6%, left ventricular systolic function severely reduced. Left atrium borderline dilated. RV mildly dilated. RV size moderately reduced. None acute wall [place] stemi Dementia is relative contraindication to thrombolysis cont metoprolol 12.5 and will watch for hypotension cont statin, beta blockers, and ASA JULIET, improving prerenal azotemia 2/2 sepsis monitor urine output and creatinine free water feeds Dementia As per medical records, baseline verbal and AOx1 currently cannot assess, sedated and intubated minimize sedation to assess mental status HTN as per cardiac, Lopressor given if BP <120/80, hold antihypertensives Hypernatremea continue free water NGT FEN NPO, enteral feeds free water per NG tube replete electrolytes as needed, keep mag >2.0, replete phosphorus DVT prophylaxis on heparin 5,000 units SQ TID GI prophylaxis - protonix Dispo: We will continue to follow the patient. Thank you for this consultative opportunity. Visit type - Emergency Visit Emergency Visit: Yes ED Registration Date: 10/15/16 Care time: The patient presented to the Emergency Department on the above date and was hospitalized for further evaluation of their emergent condition. - New Patient This patient is new to me today: No - Critical Care Critical Care patient: Yes Total Critical Care Time (in minutes): 42 Critical Care Statement: The care of this patient involved high complexity decision making to prevent further life threatening deterioration of the patient 's condition and/or to evalute & treat vital organ system(s) failure or risk of failure.
--- NOTE | 2016-10-23 16:04 | PN ---
Progress Note (short form) - Note Progress Note: s: intubated, sedated, no overnight events o: Vital Signs Temp 98.3 F 10/23/16 14:00 Pulse 96 H 10/23/16 14:00 Resp 24 10/23/16 14:15 BP 163/82 10/23/16 14:00 Pulse Ox 94 L 10/23/16 09:51 Intake & Output 10/22/16 10/23/16 10/23/16 23:59 11:59 23:59 Intake Total 2610 2240 Output Total 950 400 500 Balance 1660 1840 -500 Weight 189 lb 9.561 oz Intake: IV 40 60 Diprivan - 100 ml @ 5 MCG 40 60 /KG/MIN 2.424 mls/hr IVPB TITR KARLOS Rx#:[id number] IVPB 550 200 Tube Feeding 720 780 Tube Irrigant 1300 1200 Output: Urine 950 400 500 Palacio 950 400 500 Other: Voiding Method Indwelling Catheter Indwelling Catheter Bowel Movement Yes: small pasty brown Yes: small pasty brown Weight Measurement Method Built in [facility] intubated, sedated rrr s1s2 no mrg cta bl anteriorly, vented no jvd pos dp pt no jaundice diaphoresis no le e/c/c abd nd pos bs Current Medications Generic Name Dose Route Start Last Admin Trade Name Freq PRN Reason Stop Dose Admin Acetaminophen 650 mg 10/15/16 16:23 10/21/16 16:53 Tylenol Suppository - CT 650 mg Q6H PRN Administration FEVER OR PAIN Aspirin 81 mg 10/22/16 12:00 10/23/16 10:20 Asa - PO 81 mg DAILY KARLOS Administration Atorvastatin Calcium 40 mg 10/20/16 22:00 10/22/16 21:52 Lipitor - PO 40 mg HS KARLOS Administration Chlorhexidine Gluconate 1 applic 10/15/16 22:00 10/22/16 21:51 Hibiclens For Decolonization - TP 1 applic HS KARLOS Administration Chlorhexidine Gluconate 15 ml 10/17/16 22:00 10/23/16 10:20 Peridex - MM 15 ml BID KARLOS Administration Heparin Sodium (Porcine) 5,000 unit 10/18/16 22:00 10/23/16 10:20 Heparin - SQ 5,000 unit BID KARLOS Administration Pantoprazole Sodium 100 mls @ 200 mls/hr 10/15/16 15:15 04/18/17 10:19 Protonix 40mg Ivpb (Pre-Docked) IVPB 200 mls/hr DAILY KARLOS Administration Propofol 100 mls @ 2.353 mls/hr 10/15/16 16:00 10/23/16 10:00 Diprivan - IVPB 7 mcg/kg/min TITR KARLOS Titration Protocol 5 MCG/KG/MIN Propofol 100 mls @ 2.424 mls/hr 10/19/16 23:30 10/23/16 00:06 Diprivan - IVPB 4.848 mls/hr TITR KARLOS Administration Protocol 5 MCG/KG/MIN Vancomycin HCl 1,250 mg/ 250 mls @ 166.667 mls/hr 10/21/16 10:00 10/23/16 10:26 Dextrose IVPB 166.667 mls/hr DAILY KARLOS Administration Protocol Imipenem/Cilastatin Sodium 500 100 mls @ 100 mls/hr 10/21/16 09:00 10/23/16 10: 19 mg/ Sodium Chloride IVPB 100 mls/hr Q6H-IV KARLOS Administration Protocol Insulin Aspart 1 vial 10/19/16 00:00 10/23/16 12:48 Novolog Vial Sliding Scale - SQ 4 units Q6HPO KARLOS Administration Protocol Insulin Detemir 10 units 10/19/16 07:00 10/23/16 06:08 Levemir Vial SQ 10 units BIDI KARLOS Administration Metoprolol Tartrate 12.5 mg 10/20/16 22:00 10/23/16 13:12 Lopressor - PO 12.5 mg TID KARLOS Administration Laboratory Last Values WBC 14.2 K/mm3 (4.0-10.0) H 10/23/16 05:15 RBC 4.26 M/mm3 (4.00-5.60) 10/23/16 05:15 Hgb 11.9 GM/dL (11.7-16.9) 10/23/16 05:15 Hct 35.9 % (35.4-49) 10/23/16 05:15 MCV 84.2 fl (80-96) 10/23/16 05:15 MCHC 33.0 g/dl (32.0-35.9) 10/23/16 05:15 RDW 14.4 % (11.9-15.9) 10/23/16 05:15 Plt Count 304 K/MM3 (134-434) 10/23/16 05:15 MPV 9.4 fl (7.5-11.1) 10/23/16 05:15 Neutrophils % 86.0 % (42.8-82.8) H 10/22/16 05:15 Lymphocytes % 4.7 % (8-40) L D 10/22/16 05:15 Monocytes % 7.1 % (3.8-10.2) 10/22/16 05:15 Eosinophils % 2.0 % (0-4.5) D 10/22/16 05:15 Basophils % 0.2 % (0-2.0) 10/22/16 05:15 Band Neutrophils 6.0 % (0-10) 10/15/16 09:16 Differential Comment Manual diff done 10/17/16 05:25 Reactive Lymphocytes 3 % (0-80) 10/15/16 09:16 Poly Cells 2+ 10/17/16 05:25 Morphology Comment Slide scanned 10/17/16 05:25 INR 1.24 (0.82-1.09) H 10/15/16 09:16 PTT (Actin FS) 31.5 SECONDS (26.9-34.4) 10/21/16 05:25 Puncture Site Right radial 10/22/16 07:10 ABG pH 7.44 (7.35-7.45) 10/22/16 07:10 ABG pCO2 at Pt Temp 38.6 mmHg (35-45) 10/22/16 07:10 ABG pO2 at Pt Temp 101.0 mmHg (68-100) H D 10/22/16 07:10 ABG HCO3 25.6 meq/L (22-26) 10/22/16 07:10 ABG O2 Sat (Measured) 97.4 % (90-98.9) 10/22/16 07:10 ABG O2 Content 18.2 % vol (15-22) 10/22/16 07:10 ABG Base Excess 1.9 meq/l (-2-2) 10/22/16 07:10 Alexandro Test Positive 10/22/16 07:10 Carboxyhemoglobin 0.5 gm% (0.5-2.0) 10/15/16 09:48 Methemoglobin 0.8 % (0.4-1.5) 10/15/16 09:48 O2 Delivery Device Vent 10/22/16 07:10 Oxygen Flow Rate 50 10/22/16 07:10 Vent Mode A/c 10/22/16 07:10 Vent Rate 12 10/22/16 07:10 Mechanical Rate Yes 10/22/16 07:10 PEEP 5.0 cmH2O 10/22/16 07:10 Pressure Support Vent 500 10/22/16 07:10 Sodium 141 mmol/L (136-145) 10/23/16 05:15 Potassium 4.6 mmol/L (3.5-5.1) 10/23/16 05:15 Chloride 106 mmol/L (98-107) 10/23/16 05:15 Carbon Dioxide 29 mmol/L (21-32) 10/23/16 05:15 Anion Gap 6 (8-16) L 10/23/16 05:15 BUN 27 mg/dL (7-18) H 10/23/16 05:15 Creatinine 0.6 mg/dL (0.7-1.3) L 10/23/16 05:15 Creat Clearance w eGFR > 60 (>60) 10/22/16 05:15 POC Glucometer 250.79233 UNITS (()) 10/23/16 12:36 Random Glucose 192 mg/dL (74-106) H 10/23/16 05:15 Lactic Acid 2.358 mmol/L (0.4-2.0) H* 10/16/16 02:30 Calcium 7.7 mg/dL (8.5-10.1) L 10/23/16 05:15 Phosphorus 2.5 mg/dL (2.5-4.9) 10/23/16 05:15 Magnesium 1.9 mg/dL (1.8-2.4) 10/23/16 05:15 Total Bilirubin 0.3 mg/dL (0.2-1.0) D 10/22/16 05:15 AST 20 U/L (15-37) D 10/22/16 05:15 ALT 20 U/L (12-78) 10/22/16 05:15 Alkaline Phosphatase 107 U/L (45-117) 10/22/16 05:15 Creatine Kinase 78 IU/L (39-308) 10/15/16 15:15 Troponin I 0.36 ng/ml (0.00-0.05) H D 10/17/16 17:45 Total Protein 4.9 g/dl (6.4-8.2) L 10/22/16 05:15 Albumin 1.3 g/dl (3.4-5.0) L 10/22/16 05:15 Urine Color Amanda 10/15/16 09:22 Urine Appearance Clear 10/15/16 09:22 Urine pH 5.0 (5.0-8.0) 10/15/16 09:22 Ur Specific [place] 1.032 (1.001-1.035) 10/15/16 09:22 Urine Protein 3+ (NEGATIVE) H 10/15/16 09:22 Urine Glucose (UA) 3+ (NEGATIVE) H 10/15/16 09:22 Urine Ketones 1+ (NEGATIVE) H 10/15/16 09:22 Urine Blood 1+ (NEGATIVE) H 10/15/16 09:22 Urine Nitrite Negative (NEGATIVE) 10/15/16 09:22 Urine Bilirubin Negative (NEGATIVE) 10/15/16 09:22 Urine Urobilinogen 2.0 e.u/dl E.U./dl (0.2-1.0) 10/15/16 09:22 Ur Leukocyte Esterase Negative (NEGATIVE) 10/15/16 09:22 Urine RBC 17 /hpf (0-3) 10/15/16 09:22 Urine WBC 5 /hpf (3-5) 10/15/16 09:22 Hyaline Casts 23 /lpf 10/15/16 09:22 Granular Casts 42 /lpf 10/15/16 09:22 Urine Mucus Few 10/15/16 09:22 Random Vancomycin 3.851 ug/ml 10/16/16 05:20 Blood Type O POSITIVE 10/15/16 12:04 Antibody Screen Negative 10/15/16 12:04 tele: sr, brief atrial run, nsvt (4 beats) cxr: slight increase in bibasilar changes echo 10/2016: sev dilated lv, sev dec lvef, rv mod dilated, mod dec rv fcn, reina , mild mr est cct 36 mins Assessment/Plan HTN - becomes hypertensive when tachypneic or off sedation, but pressures tend to drop again when sedation is resumed. - currently bp acceptable, if persistently high would increase bb acute hypoxic resp failure: -remains intubated -b/l infiltrates on cxr -suspect PNA (hi fever, recent + flu) >> chf. -cont abx per ID hi fever, sepsis -hemodynamically stable at present, without need for pressors JULIET: -initial creat 1.9, from 0.9-1.0 prior -? all sepsis related -cr now back to baseline s/p abx, ivfs prior h/o CAD, elevated troponin: -initial trop 3.4, normal ck. Trop now trending down. -florid sepsis picture makes the elevated troponin likely due to sepsis direct myocardial injury, vs Type II MT from hypoxia/tachycardia/? transiently hypotensive in NH -ECG with ischemic changes (TWIs anteriorly)--also could all be secondary to above -cannot definitively rule out acute AWMI based on his ecg, however not likely given changes improved on serial tracings; -echo here with severe dec lvef -treated as nstemi here s/p hep gtt x 72 hrs --> stopped 10/18, was off plavix while not taking po meds, con't to hold in light of clinical status. con' t asa. -cont statin and bb -cont tele -further ischemic eval based on clinical course NSVT: -intermittent recurrent brief runs on tele -replete lytes prn -cont bb systolic chf, likely chronic: -echo here showing biventricular failure -currently no sig vol overload, cxr relatively unchanged today -cont bb for now, consider kathie-i when stable -further ischemic eval based on clinical course
--- NOTE | 2016-10-23 17:55 | CONSULT ---
Consult Consult Specialty:: Thoracic Surgery Referred by:: Dr. Clint Lizarraga Reason for Consultation:: Tracheostomy tube placement - History of Present Illness Chief Complaint: Respiratory failure History of Present Illness: An 86-year-old male with multiple past medical history including CAD, s/p coronary artery stent, bronchitis, and dementia, who initially presented to [facility] ED with complaints of SOB. He developed acute respiratory failure and subsequently intubated. He remains intubated/sedated and is unable to wean off from mechanical ventilator. The patient's family would like to pursue tracheostomy tube placement for long-term ventilatory support. 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 Cardio/Vascular: Yes: HTN - Alcohol/Substance Use Hx Alcohol Use: No - Smoking History Smoking history: Former smoker Have you smoked in the past 12 months: No If you are a former smoker, when did you quit?: 1999 - Social History Usual Living Arrangement: [facility] ADL: Support Services Home Medications - Allergies Allergies/Adverse Reactions: Allergies Allergy/AdvReac Type Severity Reaction Status Date / Time Penicillins Allergy Verified 10/15/16 08:41 - Home Medications Home Medications: Ambulatory Orders Metoprolol Succinate [Toprol XL -] 12.5 mg PO DAILY 03/26/16 Acetaminophen [Tylenol] 650 mg PO Q6H PRN 10/08/16 Amlodipine Besylate [Norvasc -] 2.5 mg PO DAILY 10/08/16 Aspirin [ASA -] 81 mg PO DAILY 10/08/16 Cyanocobalamin Vit B-12 Inj. [Vitamin B12 Injection -] 1,000 mcg IM ASDIR Metformin HCl [Metformin HCl ER] 500 mg PO BID 10/08/16 Albuterol 0.083% Nebulizer Princess [Ventolin 0.083% Nebulizer Soln -] 1 amp NEB QIDR #20 amp 10/11/16 Review of Systems Unable to obtain ROS, reason: intubated and sedated - Review of Systems Constitutional: reports: Fever, Weakness Eyes: reports: No Symptoms HENT: reports: No Symptoms Neck: reports: No Symptoms Cardiovascular: reports: Shortness of Breath Respiratory: reports: Cough, SOB Gastrointestinal: reports: No Symptoms Genitourinary: reports: No Symptoms Breasts: reports: No Symptoms Reported Musculoskeletal: reports: No Symptoms Integumentary: reports: No Symptoms Neurological: reports: Confusion Endocrine: reports: No Symptoms Hematology/Lymphatic: reports: No Symptoms Psychiatric: reports: No Symptoms Physical Exam Vital Signs: Vital Signs Temperature 98.3 F 10/23/16 14:00 Pulse Rate 80 10/23/16 16:00 Respiratory Rate 23 10/23/16 16:00 Blood Pressure 136/68 10/23/16 16:00 O2 Sat by Pulse Oximetry (%) 94 L 10/23/16 16:07 Constitutional: Yes: Mild Distress, Other (intubated and sedated) Eyes: Yes: PERRL, Other (intubated and sedated) HENT: Yes: WNL, Other (intubated and sedated) Neck: Yes: Supple Cardiovascular: Yes: Regular Rate and Rhythm Respiratory: Yes: Intubated, Mechanically Ventilated, Rhonchi Gastrointestinal: Yes: Soft, Abdomen, Obese ...Rectal Exam: Yes: Deferred Renal/: Yes: WNL Breast(s): Yes: WNL Musculoskeletal: Yes: Other (intubated and sedated) Edema: LLE: 1+, RLE: 1+ Peripheral Pulses WNL: Yes Integumentary: Yes: WNL Neurological: Yes: Other (intubated and sedated) Psychiatric: Yes: Other (intubated and sedated) Labs: CBC, BMP 10/23/16 05:15 10/23/16 05:15 Imaging - Results Chest X-ray: Report Reviewed, Image Reviewed Problem List - Problems (1) Acute respiratory failure with hypoxia Code(s): J96.01 - ACUTE RESPIRATORY FAILURE WITH HYPOXIA Assessment/Plan An 86-year-old male with history of CAD, s/p coronary artery stent, bronchitis and dementia who presented to [facility] with complaints of SOB. He developed acute respiratory failure and subsequently intubated. He is not able to wean off from mechanical ventilator. His radiographic studies and laboratory results were reviewed thoroughly. He appears to be a reasonable candidate for percutaneous tracheostomy tube for long-term ventilatory support. 1. Continue supportive ICU care 2. Antibiotics 3. Preop for percutaneous trach and possible open (10/25) 4. Discussed with Dr. Clint Lizarraga 5. Thank you for the interesting consult. Will follow with you.
[2016-10-23] MEDS: ATORVASTATIN CA 40 MG TABLET (FP) PO SCH (22:13)
[2016-10-23] MEDS: CHLORHEXIDINE GLUCONATE 4% CLEANSER FOR DECOLONIZATION TP SCH (22:16)
[2016-10-24] MEDS: INSULIN SLIDING SCALE (NOVOLOG) 1 VIAL SQ SCH ×4 (00:23→17:33)
[2016-10-24] MEDS: IMIPENEM/CILASTATIN SODIUM 500 MG in SODIUM CHLORIDE 100 ML IVPB SCH ×4 (03:34→21:38)
[2016-10-24] MEDS ORDERED: PROPOFOL 100 ML ONE (03:41)
[2016-10-24] MEDS: INSULIN DETEMIR 100 UNITS/ML MDV SQ SCH ×2 (06:02→16:40)
[2016-10-24] MEDS: METOPROLOL TARTRATE 25 MG TABLET (FP) PO SCH ×3 (06:03→21:39)
[2016-10-24] MEDS: PROPOFOL 100 ML IVPB SCH ×2 (06:03→16:10)
[2016-10-24 06:12] LABS: MCH 27.9 pg (25.7-33.7); MCHC 33.1 g/dl (32.0-35.9); MEAN CELL VOLUME 84.2 fl (80-96); MEAN PLT VOLUME 9.4 fl (7.5-11.1); PLATELET COUNT 327 K/MM3 (134-434); RDW 14.6 % (11.9-15.9); WHITE BLOOD COUNT 13.2 K/mm3 (4.0-10.0)
[2016-10-24 06:50] LABS: CALCIUM 7.7 mg/dL (8.5-10.1); CREATININE 0.6 mg/dL (0.7-1.3); MAGNESIUM 1.9 mg/dL (1.8-2.4); PHOSPHOROUS 3.1 mg/dL (2.5-4.9)
--- NOTE | 2016-10-24 07:06 | PN ---
Progress Note, Physician Chief Complaint: ID Fevers have trended down since Imipenem begun WBC down as well Remains intubated - Current Medication List Current Medications: Active Medications Acetaminophen (Tylenol Suppository -) 650 mg DE Q6H PRN PRN Reason: FEVER OR PAIN Last Admin: 10/21/16 16:53 Dose: 650 mg Aspirin (Asa -) 81 mg PO DAILY [facility] Last Admin: 10/23/16 10:20 Dose: 81 mg Atorvastatin Calcium (Lipitor -) 40 mg PO HS [facility] Last Admin: 10/23/16 22:13 Dose: 40 mg Chlorhexidine Gluconate (Hibiclens For Decolonization -) 1 applic TP HS [facility] Last Admin: 10/23/16 22:16 Dose: 1 applic Chlorhexidine Gluconate (Peridex -) 15 ml MM BID [facility] Last Admin: 10/23/16 22:15 Dose: 15 ml Heparin Sodium (Porcine) (Heparin -) 5,000 unit SQ BID [facility] Last Admin: 10/23/16 22:15 Dose: 5,000 unit Pantoprazole Sodium (Protonix 40mg Ivpb (Pre-Docked)) 100 mls @ 200 mls/hr IVPB DAILY [facility] Last Admin: 10/23/16 10:19 Dose: 200 mls/hr Propofol (Diprivan -) 100 mls @ 2.353 mls/hr IVPB TITR KARLOS; 5 MCG/KG/MIN PRN Reason: Protocol Last Admin: 10/23/16 19:27 Dose: Not Given Propofol (Diprivan -) 100 mls @ 2.424 mls/hr IVPB TITR KARLOS; 5 MCG/KG/MIN PRN Reason: Protocol Last Admin: 10/24/16 06:03 Dose: 4.848 mls/hr Vancomycin HCl 1,250 mg/ (Dextrose) 250 mls @ 166.667 mls/hr IVPB DAILY KARLOS PRN Reason: Protocol Last Admin: 10/23/16 10:26 Dose: 166.667 mls/hr Imipenem/Cilastatin Sodium 500 (mg/ Sodium Chloride) 100 mls @ 100 mls/hr IVPB Q6H-IV KARLOS PRN Reason: Protocol Last Admin: 10/24/16 03:34 Dose: 100 mls/hr Insulin Aspart (Novolog Vial Sliding Scale -) 1 vial SQ Q6HPO KARLOS PRN Reason: Protocol Last Admin: 10/24/16 06:02 Dose: Not Given Insulin Detemir (Levemir Vial) 10 units SQ BIDI [facility] Last Admin: 10/24/16 06:02 Dose: 10 units Metoprolol Tartrate (Lopressor -) 12.5 mg PO TID [facility] Last Admin: 10/24/16 06:03 Dose: 12.5 mg - Objective Vital Signs: Vital Signs Temperature 99.4 F 10/24/16 06:00 Pulse Rate 79 10/24/16 06:00 Respiratory Rate 22 10/24/16 06:00 Blood Pressure 135/72 10/24/16 06:00 O2 Sat by Pulse Oximetry (%) 94 L 10/23/16 22:57 Constitutional: Yes: Other (Et tube) Cardiovascular: Yes: S1, S2 Respiratory: Yes: WNL, Regular, CTA Bilaterally Gastrointestinal: Yes: WNL, Normal Bowel Sounds, Soft. No: Tenderness Edema: No Labs: CBC, BMP 10/24/16 05:15 INR, PTT INR 1.24 (0.82-1.09) H 10/15/16 09:16 Problem List - Problems (1) Acute respiratory failure with hypoxia Code(s): J96.01 - ACUTE RESPIRATORY FAILURE WITH HYPOXIA (2) Healthcare-associated pneumonia Code(s): J18.9 - PNEUMONIA, UNSPECIFIED ORGANISM (3) Sepsis Code(s): A41.9 - SEPSIS, UNSPECIFIED ORGANISM Qualifiers: Sepsis type: sepsis due to unspecified organism Qualified Code(s): A41.9 - Sepsis, unspecified organism Assessment/Plan Microbiology 10/21/16 12:30 Sputum - Endotrachea Suction/Ventilator Gram Stain - Final 10/21/16 12:30 Sputum - Endotrachea Suction/Ventilator Sputum Culture - Final Yeast Like Organism 10/21/16 08:30 Urine - Urine Palacio Urine Culture - Final NO GROWTH OBTAINED 10/17/16 15:00 Sputum - Endotrachea Suction/Ventilator Gram Stain - Final 10/17/16 15:00 Sputum - Endotrachea Suction/Ventilator Sputum Culture - Final Yeast Like Organism 10/21/16 09:50 Blood - Peripheral Venous Blood Culture - Preliminary NO GROWTH OBTAINED AFTER 48 HOURS, INCUBATION TO CONTINUE FOR 3 DAYS. 10/21/16 08:40 Blood - Peripheral Venous Blood Culture - Preliminary NO GROWTH OBTAINED AFTER 48 HOURS, INCUBATION TO CONTINUE FOR 3 DAYS. Laboratory Tests 10/23/16 10/24/16 10/24/16 05:15 05:15 05:15 WBC 14.2 H Pending Hgb 11.9 Pending Plt Count 304 Pending BUN 23 H Creatinine 0.6 L Assessment Alzheimer dementia Assume aspiration with respiratory failure Empiric therapy Imipenem Had persistent low grade fever and leukocytosis ? resolving Plan Few more days of treatment as ordered Mariana ALFONSO
[2016-10-24] MEDS: ASPIRIN 81 MG CHEWABLE TABLETS PO SCH (10:06)
[2016-10-24] MEDS: HEPARIN NA (PORCINE) 5,000 UNITS/ML 1ML VIAL SQ SCH (10:06)
[2016-10-24] MEDS: PANTOPRAZOLE SODIUM 100 ML IVPB SCH (10:06)
[2016-10-24] MEDS: VANCOMYCIN 1,250 MG in DEXTROSE 5%-WATER - 250 ML IVPB SCH (10:08)
[2016-10-24] MEDS: CHLORHEXIDINE GLUCONATE 0.12% 15ML CUP MM SCH ×2 (10:09→21:39)
[2016-10-24] MEDS ORDERED: PT OWN MED DRAWER 7, Y5N ONE ×2 (10:17→20:54)
--- NOTE | 2016-10-24 10:25 | PN ---
Progress Note, Physician Chief Complaint: Pt intubated failed weaning trials He spontaneously moves rt arm, not left arm - Current Medication List Current Medications: Active Medications Acetaminophen (Tylenol Suppository -) 650 mg MS Q6H PRN PRN Reason: FEVER OR PAIN Last Admin: 10/21/16 16:53 Dose: 650 mg Aspirin (Asa -) 81 mg PO DAILY [facility] Last Admin: 10/24/16 10:06 Dose: 81 mg Atorvastatin Calcium (Lipitor -) 40 mg PO HS [facility] Last Admin: 10/23/16 22:13 Dose: 40 mg Chlorhexidine Gluconate (Hibiclens For Decolonization -) 1 applic TP HS [facility] Last Admin: 10/23/16 22:16 Dose: 1 applic Chlorhexidine Gluconate (Peridex -) 15 ml MM BID [facility] Last Admin: 10/24/16 10:09 Dose: 15 ml Heparin Sodium (Porcine) (Heparin -) 5,000 unit SQ BID [facility] Last Admin: 10/24/16 10:06 Dose: 5,000 unit Pantoprazole Sodium (Protonix 40mg Ivpb (Pre-Docked)) 100 mls @ 200 mls/hr IVPB DAILY [facility] Last Admin: 10/24/16 10:06 Dose: 200 mls/hr Propofol (Diprivan -) 100 mls @ 2.353 mls/hr IVPB TITR KARLOS; 5 MCG/KG/MIN PRN Reason: Protocol Last Admin: 10/23/16 19:27 Dose: Not Given Propofol (Diprivan -) 100 mls @ 2.424 mls/hr IVPB TITR KARLOS; 5 MCG/KG/MIN PRN Reason: Protocol Last Admin: 10/24/16 06:03 Dose: 4.848 mls/hr Vancomycin HCl 1,250 mg/ (Dextrose) 250 mls @ 166.667 mls/hr IVPB DAILY KARLOS PRN Reason: Protocol Last Admin: 10/24/16 10:08 Dose: 166.667 mls/hr Imipenem/Cilastatin Sodium 500 (mg/ Sodium Chloride) 100 mls @ 100 mls/hr IVPB Q6H-IV KARLOS PRN Reason: Protocol Last Admin: 10/24/16 10:18 Dose: 100 mls/hr Insulin Aspart (Novolog Vial Sliding Scale -) 1 vial SQ Q6HPO KARLOS PRN Reason: Protocol Last Admin: 10/24/16 06:02 Dose: Not Given Insulin Detemir (Levemir Vial) 10 units SQ BIDI [facility] Last Admin: 10/24/16 06:02 Dose: 10 units Metoprolol Tartrate (Lopressor -) 12.5 mg PO TID [facility] Last Admin: 10/24/16 06:03 Dose: 12.5 mg - Objective Vital Signs: Vital Signs Temperature 98.5 F 10/24/16 10:00 Pulse Rate 76 10/24/16 10:00 Respiratory Rate 21 10/24/16 10:00 Blood Pressure 148/68 10/24/16 10:00 O2 Sat by Pulse Oximetry (%) 94 L 10/23/16 22:57 Constitutional: Yes: No Distress, Other (intubated) Cardiovascular: Yes: Regular Rate and Rhythm Respiratory: Yes: Diminished Gastrointestinal: Yes: Normal Bowel Sounds, Soft. No: Distention, Tenderness Edema: Yes Edema: LLE: Trace, RLE: Trace Labs: CBC, BMP 10/24/16 05:15 10/24/16 05:15 INR, PTT INR 1.24 (0.82-1.09) H 10/15/16 09:16 Problem List - Problems (1) Acute respiratory failure with hypoxia Code(s): J96.01 - ACUTE RESPIRATORY FAILURE WITH HYPOXIA (2) Sepsis Code(s): A41.9 - SEPSIS, UNSPECIFIED ORGANISM Qualifiers: Sepsis type: sepsis due to unspecified organism Qualified Code(s): A41.9 - Sepsis, unspecified organism (3) Alzheimer disease Code(s): G30.9 - ALZHEIMER'S DISEASE, UNSPECIFIED Qualifiers: Alzheimer's disease onset: early-onset Dementia behavioral disturbance : without behavioral disturbance Qualified Code(s): G30.0 - Alzheimer's disease with early onset; F02.81 - Dementia in other diseases classified elsewhere with behavioral disturbance (4) Healthcare-associated pneumonia Code(s): J18.9 - PNEUMONIA, UNSPECIFIED ORGANISM Assessment/Plan PLAN unable to wean IV antibiotics ID and Neuro follow up noted nebs prognosis guarded daughter wants trach-- will be scheduled for tomorrow
[2016-10-24] MEDS ORDERED: INSULIN (NOVOLOG) ASPART 100 UNITS/ML 10ML VIAL ONE (11:47)
--- NOTE | 2016-10-24 11:54 | PN ---
Teaching Attending Note Name of Resident: Madeline Mayo ATTENDING PHYSICIAN STATEMENT I saw and evaluated the patient. I reviewed the resident's note and discussed the case with the resident. I agree with the resident's findings and plan as documented. SUBJECTIVE: Pt seen and examined in the ICU. Remains intubated, sedated. Not tolerating CPAP /PS trials even with high pressure support. OBJECTIVE: Last Vital Signs Temp Pulse Resp BP Pulse Ox 98.5 F 76 49 H 148/68 97 10/24/16 10:00 10/24/16 10:00 10/24/16 10:20 10/24/16 10:00 10/24/16 10:20 Intake & Output 10/21/16 10/22/16 10/23/16 10/24/16 23:59 23:59 23:59 23:59 Intake Total 4325.6 4314 4986 1735 Output Total 1000 1550 1500 350 Balance 3325.6 2764 3486 1385 Weight 176 lb 6.4 oz 178 lb 9 oz 189 lb 9.561 oz 185 lb 10.067 oz Gen: intubated, sedated Heart: RRR Lung: scattered rhonchi Abd: soft, nontender Ext: + edema CBC, BMP 10/24/16 05:15 10/24/16 05:15 Active Medications Acetaminophen (Tylenol Suppository -) 650 mg VA Q6H PRN PRN Reason: FEVER OR PAIN Last Admin: 10/21/16 16:53 Dose: 650 mg Aspirin (Asa -) 81 mg PO DAILY [facility] Last Admin: 10/24/16 10:06 Dose: 81 mg Atorvastatin Calcium (Lipitor -) 40 mg PO HS [facility] Last Admin: 10/23/16 22:13 Dose: 40 mg Chlorhexidine Gluconate (Hibiclens For Decolonization -) 1 applic TP HS [facility] Last Admin: 10/23/16 22:16 Dose: 1 applic Chlorhexidine Gluconate (Peridex -) 15 ml MM BID [facility] Last Admin: 10/24/16 10:09 Dose: 15 ml Heparin Sodium (Porcine) (Heparin -) 5,000 unit SQ BID [facility] Last Admin: 10/24/16 10:06 Dose: 5,000 unit Pantoprazole Sodium (Protonix 40mg Ivpb (Pre-Docked)) 100 mls @ 200 mls/hr IVPB DAILY [facility] Last Admin: 10/24/16 10:06 Dose: 200 mls/hr Propofol (Diprivan -) 100 mls @ 2.353 mls/hr IVPB TITR [facility]; 5 MCG/KG/MIN PRN Reason: Protocol Last Admin: 10/23/16 19:27 Dose: Not Given Propofol (Diprivan -) 100 mls @ 2.424 mls/hr IVPB TITR [facility]; 5 MCG/KG/MIN PRN Reason: Protocol Last Admin: 10/24/16 06:03 Dose: 4.848 mls/hr Vancomycin HCl 1,250 mg/ (Dextrose) 250 mls @ 166.667 mls/hr IVPB DAILY [facility] PRN Reason: Protocol Last Admin: 10/24/16 10:08 Dose: 166.667 mls/hr Imipenem/Cilastatin Sodium 500 (mg/ Sodium Chloride) 100 mls @ 100 mls/hr IVPB Q6H-IV [facility] PRN Reason: Protocol Last Admin: 10/24/16 10:18 Dose: 100 mls/hr Insulin Aspart (Novolog Vial Sliding Scale -) 1 vial SQ Q6HPO [facility] PRN Reason: Protocol Last Admin: 10/24/16 11:40 Dose: 6 units Insulin Detemir (Levemir Vial) 10 units SQ BIDI [facility] Last Admin: 10/24/16 06:02 Dose: 10 units Metoprolol Tartrate (Lopressor -) 12.5 mg PO TID [facility] Last Admin: 10/24/16 06:03 Dose: 12.5 mg ASSESSMENT AND PLAN: Acute Hypoxic Respiratory Failure Pneumonia Recent Influenza Severe Sepsis Acute Kidney Injury improving Lactic Acidosis resolved +Troponins - ?Demand Ischemia from Sepsis LV Systolic Heart Failure HTN CAD DM Dementia - continue antibiotics per ID - monitor urine output, creatinine - ASA, beta regina - taper Fio2 to keep Spo2 >90% - minimize sedation to assess mental status - spontaneous breathing trials as tolerated - enteral feeds - DVT/GI prophylaxis - continue ICU monitoring - does not tolerate CPAP/PS even with high PS, likelihood of weaning off vent is unlikely in short term - scheduled for bedside percutaneous tracheostomy tomorrow - NPO after midnight, hold heparin after tonight's dose critical care time spent in reviewing chart, evaluating patient and formulating plan 40 min
--- NOTE | 2016-10-24 12:08 | PN ---
Physical Exam: SUBJECTIVE: Patient seen and examined at bed side in ICU. no new changes lightly sedated and intubated, responsive to verbal and tachtile stimuli, opens eyes. patient moving right UE, not moving left upper, retratcts L and R lower ext. Failed weening trial today, Not tolerating CPAP/PS trials even with high pressure support. for tracheostomy tomorrow at 11am. OBJECTIVE: Vital Signs Period Temp Pulse Resp BP Sys/Machado Pulse Ox Last 24 Hr 98.3 F-99.6 F 72-96 14-49 105-166/56-87 94-97 GENERAL: Intubated and sedated. responsive to verbal and tachtile stimuli, In no acute distress, minimally responsive to tactile stimuli, nonverbal HEAD: Normal with no signs of trauma. EYES: pin point pupils, no sclera anicteric, conjunctiva clear. EARS, NOSE, THROAT: Ears normal, nares patent, oropharynx clear without exudates. Moist mucous membranes. ET tube inplace. NECK: Normal range of motion, supple without lymphadenopathy, JVD, or masses. LUNGS: distant breath sounds, + crackles, No wheezes, and no crackles. No accessory muscle use. HEART: distant heart sounds no murmurs appreciated. ABDOMEN: Soft, nontender, not distended, normoactive bowel sounds, no guarding, no rebound, no masses. MUSCULOSKELETAL: moves right upper ext, retracts R>L lower ext to pain, not move Left upper LOWER EXTREMITIES: 2+ pulses, warm, well-perfused. No calf tenderness. trace peripheral edema. PSYCHIATRIC: intubated sedated SKIN: Warm, dry, normal turgor, no rashes or lesions noted. Laboratory Results - last 24 hr 10/23/16 10/23/16 10/23/16 12:36 17:52 22:05 WBC RBC Hgb Hct MCV MCHC RDW Plt Count MPV Sodium Potassium Chloride Carbon Dioxide Anion Gap BUN Creatinine POC Glucometer [phone] Random Glucose Calcium Phosphorus Magnesium 10/24/16 10/24/16 10/24/16 05:15 05:15 05:54 WBC 13.2 H RBC 4.35 Hgb 12.1 Hct 36.6 MCV 84.2 MCHC 33.1 RDW 14.6 Plt Count 327 MPV 9.4 Sodium 139 Potassium 4.5 Chloride 102 Carbon Dioxide 32 Anion Gap 5 L BUN 23 H Creatinine 0.6 L POC Glucometer [phone] Random Glucose 108 H D Calcium 7.7 L Phosphorus 3.1 D Magnesium 1.9 Active Medications Generic Name Dose Route Start Last Admin Trade Name Freq PRN Reason Stop Dose Admin Acetaminophen 650 mg 10/15/16 16:23 10/21/16 16:53 Tylenol Suppository - SC 650 mg Q6H PRN Administration FEVER OR PAIN Aspirin 81 mg 10/22/16 12:00 10/24/16 10:06 Asa - PO 81 mg DAILY [facility]OS Administration Atorvastatin Calcium 40 mg 10/20/16 22:00 10/23/16 22:13 Lipitor - PO 40 mg HS [facility]OS Administration Chlorhexidine Gluconate 1 applic 10/15/16 22:00 10/23/16 22:16 Hibiclens For Decolonization - TP 1 applic HS [facility] Administration Chlorhexidine Gluconate 15 ml 10/17/16 22:00 10/24/16 10:09 Peridex - MM 15 ml BID [facility]OS Administration Heparin Sodium (Porcine) 5,000 unit 10/18/16 22:00 10/24/16 10:06 Heparin - SQ 5,000 unit BID [facility] Administration Pantoprazole Sodium 100 mls @ 200 mls/hr 10/15/16 15:15 10/24/16 10:06 Protonix 40mg Ivpb (Pre-Docked) IVPB 200 mls/hr DAILY [facility] Administration Propofol 100 mls @ 2.353 mls/hr 10/15/16 16:00 10/23/16 19:27 Diprivan - IVPB Not Given TITR [facility] Protocol 5 MCG/KG/MIN Propofol 100 mls @ 2.424 mls/hr 10/19/16 23:30 10/24/16 06:03 Diprivan - IVPB 4.848 mls/hr TITR [facility]OS Administration Protocol 5 MCG/KG/MIN Vancomycin HCl 1,250 mg/ 250 mls @ 166.667 mls/hr 10/21/16 10:00 10/24/16 10:08 Dextrose IVPB 166.667 mls/hr DAILY [facility] Administration Protocol Imipenem/Cilastatin Sodium 500 100 mls @ 100 mls/hr 10/21/16 09:00 10/24/16 10: 18 mg/ Sodium Chloride IVPB 100 mls/hr Q6H-IV [facility] Administration Protocol Insulin Aspart 1 vial 10/19/16 00:00 10/24/16 11:40 Novolog Vial Sliding Scale - SQ 6 units Q6HPO [facility]OS Administration Protocol Insulin Detemir 10 units 10/19/16 07:00 10/24/16 06:02 Levemir Vial SQ 10 units BIDI [facility] Administration Metoprolol Tartrate 12.5 mg 10/20/16 22:00 10/24/16 06:03 Lopressor - PO 12.5 mg TID [facility] Administration ASSESSMENT/PLAN: 86 year old male from [facility] with PMH of HTN, HLD, CAD s/p bare metal stent, afib, L atrial lipoma, latent TB, Alzheimer's dementia and DM who was recently discharged for Influenza A and treated with Tamiflu 10/11/16 who presents to the ER via EMS for worsening dypsnea and confusion. Sever sepsis 2/2 HCAP, slightly wbc trending down, afebrile over night, possible aspirant due to his Alzheimer. chest chest xray inc bibaselir changes. ID consult. PCN allergy noted, restart antibiotics Vanco and Imipenem f/u cultures Acute hypoxic respiratory failure- weening trial failed today, for bedside percutaneous tracheostomy tomorrow at 11am.- NPO after midnight, hold heparin after tonight's dose CXR read with b/l lower lobe infiltrate, PNA vs pulmonary edema vs aspiration pneumonia Patient currently mechanically ventilated - patient difficult to to ween, start spontaneous breathing trials as tolerated when mental status improves minimize sedation to assess mental status Taper FI O2, keep O2 >90% ABG in AM DKA resolved Troponins - Demand Ischemia 2/2 Sepsis echo here with severe dec lvef- trend troponins, echo shows EF of 29.6%, left ventricular systolic function severely reduced. Left atrium borderline dilated. RV mildly dilated. RV size moderately reduced. None acute wall CT stemi Dementia is relative contraindication to thrombolysis cont metoprolol 12.5 and will watch for hypotension cont statin, beta blockers, and ASA will hold, asa, heparin, for procedure JULIET, improving prerenal azotemia 2/2 sepsis monitor urine output and creatinine free water feeds Dementia As per medical records, baseline verbal and AOx1 currently cannot assess, sedated and intubated minimize sedation to assess mental status HTN as per cardiac, Lopressor given if BP <120/80, hold antihypertensives Hypernatremea continue free water NGT FEN NPO/Nothing by NGT after midnight for surgery, enteral feeds free water per NG tube replete electrolytes as needed, keep mag >2.0, replete phosphorus DVT prophylaxis on heparin 5,000 units SQ TID GI prophylaxis - protonix Dispo: We will continue to follow the patient. Thank you for this consultative opportunity. Visit type - Emergency Visit Emergency Visit: Yes ED Registration Date: 10/15/16 Care time: The patient presented to the Emergency Department on the above date and was hospitalized for further evaluation of their emergent condition. - New Patient This patient is new to me today: No - Critical Care Critical Care patient: Yes Total Critical Care Time (in minutes): 43 Critical Care Statement: The care of this patient involved high complexity decision making to prevent further life threatening deterioration of the patient 's condition and/or to evalute & treat vital organ system(s) failure or risk of failure.
--- NOTE | 2016-10-24 18:02 | PN ---
Progress Note (short form) - Note Progress Note: Reviewed charts, films, labs, vs, and i/o's. no major event. intubated/ sedated. afeb. rrr, rhonchi. on vent. +bs, soft, nt, nd. +edema. no c/c. CBC, BMP 10/24/16 05:15 10/24/16 05:15 Vital Signs - 24 hr 10/23/16 10/23/16 10/23/16 19:04 20:00 21:00 Temperature 99.6 F Pulse Rate 79 Respiratory 22 25 H 23 Rate Blood Pressure 157/78 O2 Sat by Pulse 94 L Oximetry (%) 10/23/16 10/23/16 10/24/16 22:00 22:57 00:00 Temperature Pulse Rate 89 72 Respiratory 22 20 Rate Blood Pressure 124/60 O2 Sat by Pulse 94 L 94 L Oximetry (%) 10/24/16 10/24/16 10/24/16 00:32 02:00 02:58 Temperature 99.3 F Pulse Rate 74 Respiratory 21 23 22 Rate Blood Pressure 105/56 O2 Sat by Pulse Oximetry (%) 10/24/16 10/24/16 10/24/16 04:00 05:05 06:00 Temperature 99.4 F Pulse Rate 76 79 Respiratory 22 26 H 22 Rate Blood Pressure 128/66 135/72 O2 Sat by Pulse Oximetry (%) 10/24/16 10/24/16 10/24/16 07:20 08:00 09:00 Temperature Pulse Rate 76 Respiratory 19 14 23 Rate Blood Pressure 132/63 O2 Sat by Pulse 94 L Oximetry (%) 10/24/16 10/24/16 10/24/16 09:55 10:00 10:20 Temperature 98.5 F Pulse Rate 74 76 Respiratory 22 30 H 49 H Rate Blood Pressure 148/68 O2 Sat by Pulse 97 97 97 Oximetry (%) 10/24/16 10/24/16 10/24/16 12:00 12:15 14:00 Temperature Pulse Rate 78 79 Respiratory 26 H 23 30 H Rate Blood Pressure 142/64 160/77 O2 Sat by Pulse Oximetry (%) 10/24/16 10/24/16 14:35 16:37 Temperature Pulse Rate Respiratory 25 H 24 Rate Blood Pressure O2 Sat by Pulse Oximetry (%) a/p 86 yo, m, pneumonia, resp failure, remains intubated/sedated. unable to wean vent supp 1. cont icu supp care 2. abx 3. preop for perc trach and possible open tomorrow 4. will follow Problem List - Problems (1) Acute respiratory failure with hypoxia Code(s): J96.01 - ACUTE RESPIRATORY FAILURE WITH HYPOXIA
--- NOTE | 2016-10-24 18:35 | PN ---
Progress Note (short form) - Note Progress Note: CC: nstemi s: intubated, sedated, no overnight events o: Current Medications Acetaminophen (Tylenol Suppository -) 650 mg ND Q6H PRN PRN Reason: FEVER OR PAIN Last Admin: 10/21/16 16:53 Dose: 650 mg Aspirin (Asa -) 81 mg PO DAILY [facility] Last Admin: 10/24/16 10:06 Dose: 81 mg Atorvastatin Calcium (Lipitor -) 40 mg PO HS [facility] Last Admin: 10/23/16 22:13 Dose: 40 mg Chlorhexidine Gluconate (Hibiclens For Decolonization -) 1 applic TP HS [facility] Last Admin: 10/23/16 22:16 Dose: 1 applic Chlorhexidine Gluconate (Peridex -) 15 ml MM BID [facility] Last Admin: 10/24/16 10:09 Dose: 15 ml Heparin Sodium (Porcine) (Heparin -) 5,000 unit SQ BID [facility] Last Admin: 10/24/16 10:06 Dose: 5,000 unit Pantoprazole Sodium (Protonix 40mg Ivpb (Pre-Docked)) 100 mls @ 200 mls/hr IVPB DAILY [facility] Last Admin: 10/24/16 10:06 Dose: 200 mls/hr Propofol (Diprivan -) 100 mls @ 2.353 mls/hr IVPB TITR KARLOS; 5 MCG/KG/MIN PRN Reason: Protocol Last Admin: 10/24/16 16:10 Dose: 4.9 mls/hr Propofol (Diprivan -) 100 mls @ 2.424 mls/hr IVPB TITR KARLOS; 5 MCG/KG/MIN PRN Reason: Protocol Last Admin: 10/24/16 06:03 Dose: 4.848 mls/hr Vancomycin HCl 1,250 mg/ (Dextrose) 250 mls @ 166.667 mls/hr IVPB DAILY [facility] PRN Reason: Protocol Last Admin: 10/24/16 10:08 Dose: 166.667 mls/hr Imipenem/Cilastatin Sodium 500 (mg/ Sodium Chloride) 100 mls @ 100 mls/hr IVPB Q6H-IV [facility] PRN Reason: Protocol Last Admin: 10/24/16 15:50 Dose: 100 mls/hr Insulin Aspart (Novolog Vial Sliding Scale -) 1 vial SQ Q6HPO [facility] PRN Reason: Protocol Last Admin: 10/24/16 17:33 Dose: 4 units Insulin Detemir (Levemir Vial) 10 units SQ BIDI [facility] Last Admin: 10/24/16 16:40 Dose: 10 units Metoprolol Tartrate (Lopressor -) 12.5 mg PO TID [facility] Last Admin: 10/24/16 16:11 Dose: 12.5 mg Vital Signs Period Temp Pulse Resp BP Sys/Machado Pulse Ox Last 24 Hr 98.5 F-99.6 F 72-89 14-49 105-160/56-78 94-97 Intake & Output 10/22/16 10/23/16 10/24/16 10/25/16 07:59 07:59 07:59 07:59 Intake Total 4326.8 4850 4481 Output Total 1150 1350 1450 800 Balance 3176.8 3500 3031 -800 Weight 178 lb 9 oz 189 lb 9.561 oz 185 lb 10.067 oz intubated, sedated rrr s1s2 no mrg cta bl anteriorly, vented no jvd pos dp pt no jaundice diaphoresis no le e/c/c abd nd pos bs CBC, BMP 10/24/16 05:15 10/24/16 05:15 tele: sr, one episode of nsvt cxr: slight increase in bibasilar changes echo 10/2016: sev dilated lv, sev dec lvef, rv mod dilated, mod dec rv fcn, reina , mild mr est cct 36 mins Assessment/Plan HTN - becomes hypertensive when tachypneic or off sedation, but pressures tend to drop again when sedation is resumed. - currently bp acceptable, if persistently high would increase bb acute hypoxic resp failure: -remains intubated -b/l infiltrates on cxr -suspect PNA (hi fever, recent + flu) >> chf. -cont abx per ID hi fever, sepsis -hemodynamically stable at present, without need for pressors JULIET: -initial creat 1.9, from 0.9-1.0 prior -? all sepsis related -cr now back to baseline s/p abx, ivfs prior h/o CAD, elevated troponin: -initial trop 3.4, normal ck. Trop now trending down. -florid sepsis picture makes the elevated troponin likely due to sepsis direct myocardial injury, vs Type II WI from hypoxia/tachycardia/? transiently hypotensive in NH -ECG with ischemic changes (TWIs anteriorly)--also could all be secondary to above -cannot definitively rule out acute AWMI based on his ecg, however not likely given changes improved on serial tracings; -echo here with severe dec lvef -treated as nstemi here s/p hep gtt x 72 hrs --> stopped 10/18, was off plavix while not taking po meds, con't to hold in light of clinical status. con' t asa. -cont statin and bb -cont tele -further ischemic eval based on clinical course NSVT: -intermittent recurrent brief runs on tele -replete lytes prn -cont bb as bp tolerates systolic chf, likely chronic: -echo here showing biventricular failure -currently no sig vol overload, cxr relatively unchanged today -cont bb for now, consider kathie-i when stable -further ischemic eval based on clinical course
[2016-10-24 20:12] LABS: INR 1.12 (0.82-1.09); PROTHROMBIN TIME (PATIENT) 12.3 SEC (9.98-11.88)
--- NOTE | 2016-10-24 21:10 | PN ---
Progress Note (short form) - Note Progress Note: Progress Note, Physician History of Present Illness: no new changes remains intubated /sedated failed ween trial minimally responsive eyes closed shut, may move RUE non-purposefully no celar posturing + corneals, neck supple withdraws r foot, R planar up - Current Medication List Current Medications: Active Medications Acetaminophen (Tylenol Suppository -) 650 mg TN Q6H PRN PRN Reason: FEVER OR PAIN Last Admin: 10/21/16 16:53 Dose: 650 mg Aspirin (Asa -) 81 mg PO DAILY [facility] Last Admin: 10/22/16 12:51 Dose: 81 mg Atorvastatin Calcium (Lipitor -) 40 mg PO HS [facility] Last Admin: 10/22/16 21:52 Dose: 40 mg Chlorhexidine Gluconate (Hibiclens For Decolonization -) 1 applic TP HS [facility]OS Last Admin: 10/22/16 21:51 Dose: 1 applic Chlorhexidine Gluconate (Peridex -) 15 ml MM BID [facility] Last Admin: 10/22/16 21:50 Dose: 15 ml Heparin Sodium (Porcine) (Heparin -) 5,000 unit SQ BID [facility] Last Admin: 10/22/16 21:50 Dose: 5,000 unit Pantoprazole Sodium (Protonix 40mg Ivpb (Pre-Docked)) 100 mls @ 200 mls/hr IVPB DAILY [facility] Last Admin: 10/22/16 09:20 Dose: 200 mls/hr Propofol (Diprivan -) 100 mls @ 2.353 mls/hr IVPB TITR KARLOS; 5 MCG/KG/MIN PRN Reason: Protocol Last Admin: 10/22/16 17:17 Dose: 3.294 mls/hr Propofol (Diprivan -) 100 mls @ 2.424 mls/hr IVPB TITR KARLOS; 5 MCG/KG/MIN PRN Reason: Protocol Last Admin: 10/23/16 00:06 Dose: 4.848 mls/hr Vancomycin HCl 1,250 mg/ (Dextrose) 250 mls @ 166.667 mls/hr IVPB DAILY [facility] PRN Reason: Protocol Last Admin: 10/22/16 12:11 Dose: 166.667 mls/hr Imipenem/Cilastatin Sodium 500 (mg/ Sodium Chloride) 100 mls @ 100 mls/hr IVPB Q6H-IV [facility]ARLOS PRN Reason: Protocol Last Admin: 10/23/16 03:53 Dose: 100 mls/hr Insulin Aspart (Novolog Vial Sliding Scale -) 1 vial SQ Q6HPO [facility] PRN Reason: Protocol Last Admin: 10/23/16 06:08 Dose: 4 units Insulin Detemir (Levemir Vial) 10 units SQ BIDI [facility] Last Admin: 10/23/16 06:08 Dose: 10 units Metoprolol Tartrate (Lopressor -) 12.5 mg PO TID [facility] Last Admin: 10/23/16 06:08 Dose: 12.5 mg - Objective Vital Signs: Vital Signs Temperature 97.2 F L 10/23/16 06:00 Pulse Rate 84 10/23/16 06:00 Respiratory Rate 18 10/23/16 06:00 Blood Pressure 151/78 10/23/16 06:00 O2 Sat by Pulse Oximetry (%) 95 10/22/16 22:00 Neurological: Yes: Other (see above) Labs: CBC, BMP 10/23/16 05:15 INR, PTT INR 1.24 (0.82-1.09) H 10/15/16 09:16 Problem List - Problems (1) Acute respiratory failure with hypoxia Code(s): J96.01 - ACUTE RESPIRATORY FAILURE WITH HYPOXIA (2) Cerebrovascular small vessel disease Code(s): I67.9 - CEREBROVASCULAR DISEASE, UNSPECIFIED (3) Encephalopathy acute Code(s): G93.40 - ENCEPHALOPATHY, UNSPECIFIED (4) Sepsis Code(s): A41.9 - SEPSIS, UNSPECIFIED ORGANISM Qualifiers: Sepsis type: sepsis due to unspecified organism Qualified Code(s): A41.9 - Sepsis, unspecified organism Assessment/Plan 86 year old male from [facility] with PMH of HTN, HLD, CAD s/p bare metal stent, afib, L atrial lipoma, latent TB, Alzheimer's dementia and DM -- now with prolonged encephalopathy from resp failure. has some residual brain function, appears to move R >L, possible superimposed ischemic event continues to be sedated and poorly arousable very poor prognosis given prolonged encepahlopathy, with underlying dementia and multiple comorbidities called daughter, and explained prognosis, though she would like to still think about end of life decisions, still full code plan for trach in AM revisit palliative care if /when daughter agrees Dr Qiana Problem List - Problems (1) Acute respiratory failure with hypoxia Code(s): J96.01 - ACUTE RESPIRATORY FAILURE WITH HYPOXIA (2) Cerebrovascular small vessel disease Code(s): I67.9 - CEREBROVASCULAR DISEASE, UNSPECIFIED (3) Encephalopathy acute Code(s): G93.40 - ENCEPHALOPATHY, UNSPECIFIED (4) Sepsis Code(s): A41.9 - SEPSIS, UNSPECIFIED ORGANISM Qualifiers: Sepsis type: sepsis due to unspecified organism Qualified Code(s): A41.9 - Sepsis, unspecified organism
[2016-10-24] MEDS: ATORVASTATIN CA 40 MG TABLET (FP) PO SCH (21:39)
[2016-10-24] MEDS: CHLORHEXIDINE GLUCONATE 4% CLEANSER FOR DECOLONIZATION TP SCH (21:39)
[2016-10-25] MEDS: INSULIN SLIDING SCALE (NOVOLOG) 1 VIAL SQ SCH ×4 (00:16→17:41)
[2016-10-25] MEDS: PROPOFOL 100 ML IVPB SCH ×2 (03:08→16:30)
[2016-10-25] MEDS: IMIPENEM/CILASTATIN SODIUM 500 MG in SODIUM CHLORIDE 100 ML IVPB SCH ×4 (03:18→21:00)
[2016-10-25] MEDS ORDERED: PT OWN MED DRAWER 7, Y5N ONE ×5 (03:18→22:43)
[2016-10-25] MEDS: METOPROLOL TARTRATE 25 MG TABLET (FP) PO SCH ×2 (05:49→22:46)
[2016-10-25 06:40] LABS: MCH 28.2 pg (25.7-33.7); MCHC 33.7 g/dl (32.0-35.9); MEAN CELL VOLUME 83.7 fl (80-96); MEAN PLT VOLUME 9.6 fl (7.5-11.1); PLATELET COUNT 365 K/MM3 (134-434); RDW 14.4 % (11.9-15.9); WHITE BLOOD COUNT 15.2 K/mm3 (4.0-10.0)
[2016-10-25 06:59] LABS: INR 1.19 (0.82-1.09); PROTHROMBIN TIME (PATIENT) 13.1 SEC (9.98-11.88)
[2016-10-25 07:00] LABS: CALCIUM 7.5 mg/dL (8.5-10.1); CREATININE 0.6 mg/dL (0.7-1.3); MAGNESIUM 1.8 mg/dL (1.8-2.4); PHOSPHOROUS 2.8 mg/dL (2.5-4.9)
[2016-10-25 07:01] LABS: ACTIVATED PTT 28.7 SECONDS (26.9-34.4)
[2016-10-25] MEDS: INSULIN DETEMIR 100 UNITS/ML MDV SQ SCH ×2 (07:16→17:30)
[2016-10-25 07:50] LABS: ARTERIAL BLD GAS O2 SATURATION 95.7 % (90-98.9); ARTERIAL BLOOD GAS BASE EXCESS 3.6 meq/l (-2-2); ARTERIAL BLOOD GAS HCO3 26.1 meq/L (22-26)
[2016-10-25 07:51] LABS: ALLENS TEST POSITIVE; ART PUNCT SITE RIGHT RADIAL; PT. ON O2? YES
[2016-10-25 07:52] LABS: LPM/O2% 40%; MECH. VENT. YES; TYPE OF O2 MECHANICAL VENT; VT/PRESS 500ML
[2016-10-25 07:53] LABS: VENT RATE 12
[2016-10-25 07:54] LABS: ARTERIAL BLOOD GAS pH 7.51 (7.35-7.45)
--- NOTE | 2016-10-25 08:07 | PN ---
Progress Note, Physician Chief Complaint: ID Vancomycin Imipenem day 4 Rx Remains intubated Temps appear to be staying down - Current Medication List Current Medications: Active Medications Acetaminophen (Tylenol Suppository -) 650 mg NC Q6H PRN PRN Reason: FEVER OR PAIN Last Admin: 10/21/16 16:53 Dose: 650 mg Aspirin (Asa -) 81 mg PO DAILY [facility] Last Admin: 10/24/16 10:06 Dose: 81 mg Atorvastatin Calcium (Lipitor -) 40 mg PO HS [facility] Last Admin: 10/24/16 21:39 Dose: 40 mg Chlorhexidine Gluconate (Hibiclens For Decolonization -) 1 applic TP HS [facility] Last Admin: 10/24/16 21:39 Dose: 1 applic Chlorhexidine Gluconate (Peridex -) 15 ml MM BID [facility] Last Admin: 10/24/16 21:39 Dose: 15 ml Heparin Sodium (Porcine) (Heparin -) 5,000 unit SQ BID [facility] Last Admin: 10/24/16 10:06 Dose: 5,000 unit Pantoprazole Sodium (Protonix 40mg Ivpb (Pre-Docked)) 100 mls @ 200 mls/hr IVPB DAILY [facility] Last Admin: 10/24/16 10:06 Dose: 200 mls/hr Propofol (Diprivan -) 100 mls @ 2.353 mls/hr IVPB TITR [facility]; 5 MCG/KG/MIN PRN Reason: Protocol Last Admin: 10/24/16 16:10 Dose: 4.9 mls/hr Propofol (Diprivan -) 100 mls @ 2.424 mls/hr IVPB TITR [facility]OS; 5 MCG/KG/MIN PRN Reason: Protocol Last Admin: 10/25/16 03:08 Dose: Not Given Vancomycin HCl 1,250 mg/ (Dextrose) 250 mls @ 166.667 mls/hr IVPB DAILY [facility] PRN Reason: Protocol Last Admin: 10/24/16 10:08 Dose: 166.667 mls/hr Imipenem/Cilastatin Sodium 500 (mg/ Sodium Chloride) 100 mls @ 100 mls/hr IVPB Q6H-IV [facility] PRN Reason: Protocol Last Admin: 10/25/16 03:18 Dose: 100 mls/hr Insulin Aspart (Novolog Vial Sliding Scale -) 1 vial SQ Q6HPO [facility] PRN Reason: Protocol Last Admin: 10/25/16 05:49 Dose: 6 units Insulin Detemir (Levemir Vial) 10 units SQ BIDI [facility] Last Admin: 10/25/16 07:16 Dose: 10 units Metoprolol Tartrate (Lopressor -) 12.5 mg PO TID [facility] Last Admin: 10/25/16 05:49 Dose: 12.5 mg - Objective Vital Signs: Vital Signs Temperature 99.4 F 10/25/16 02:00 Pulse Rate 82 10/25/16 06:00 Respiratory Rate 25 H 10/25/16 07:41 Blood Pressure 149/73 10/25/16 06:00 O2 Sat by Pulse Oximetry (%) 93 L 10/24/16 22:00 Constitutional: Yes: No Distress Cardiovascular: Yes: Regular Rate and Rhythm, S1, S2 Respiratory: Yes: WNL, Regular, CTA Bilaterally, Rhonchi, Tachypnea Gastrointestinal: Yes: WNL, Soft. No: Tenderness Edema: No Labs: CBC, BMP 10/25/16 05:30 10/25/16 05:30 INR, PTT INR 1.19 (0.82-1.09) H 10/25/16 05:30 Problem List - Problems (1) Acute respiratory failure with hypoxia Code(s): J96.01 - ACUTE RESPIRATORY FAILURE WITH HYPOXIA (2) Healthcare-associated pneumonia Code(s): J18.9 - PNEUMONIA, UNSPECIFIED ORGANISM (3) Sepsis Code(s): A41.9 - SEPSIS, UNSPECIFIED ORGANISM Qualifiers: Sepsis type: sepsis due to unspecified organism Qualified Code(s): A41.9 - Sepsis, unspecified organism Assessment/Plan Microbiology 10/21/16 12:30 Sputum - Endotrachea Suction/Ventilator Gram Stain - Final 10/21/16 12:30 Sputum - Endotrachea Suction/Ventilator Sputum Culture - Final Yeast Like Organism 10/21/16 08:30 Urine - Urine Palacio Urine Culture - Final NO GROWTH OBTAINED 10/17/16 15:00 Sputum - Endotrachea Suction/Ventilator Gram Stain - Final 10/17/16 15:00 Sputum - Endotrachea Suction/Ventilator Sputum Culture - Final Yeast Like Organism 10/21/16 09:50 Blood - Peripheral Venous Blood Culture - Preliminary NO GROWTH OBTAINED AFTER 72 HOURS, INCUBATION TO CONTINUE FOR 2 DAYS. 04/16/17 08:40 Blood - Peripheral Venous Blood Culture - Preliminary NO GROWTH OBTAINED AFTER 72 HOURS, INCUBATION TO CONTINUE FOR 2 DAYS. Laboratory Tests 10/16/16 10/25/16 10/25/16 05:20 05:30 05:30 WBC 15.2 H Hgb 11.8 Hct 34.9 L Plt Count 365 INR BUN 23 H Creatinine 0.6 L Random Vancomycin 3.851 10/25/16 05:30 WBC Hgb Hct Plt Count INR 1.19 H BUN Creatinine Random Vancomycin Assessment Aspiration PNA Respiratory failure Severe dementia Plan Stop Vancocin Imipenem will complete 7 days total though WBC remains persistantly elevated Mariana ALFONSO
--- NOTE | 2016-10-25 08:42 | PN ---
Addendum entered and electronically signed by Madeline Mayo, AKIRA 10/25/16 18:35 : Discussed case with Dr. Ti fulton with starting tube feeds, asa, and heparin. Original Note: Physical Exam: SUBJECTIVE: Patient seen and examined at bed side in ICU. no new changes lightly sedated and intubated, responsive to verbal and tachtile stimuli, opens eyes. Failed weening trial today, Not tolerating CPAP/PS trials even with high pressure support. today: Flexible brochoscopy and bronchial washing (Dr. Clint Lizarraga). Percutaneous tracheostomy tube placement (Dr. Ishan Galloway), Peg tube Dr valle. Patient family informed of polyp and want conservative management, measures at this time inlight of patient current condition. they will follow up as outpatient. OBJECTIVE: Vital Signs Period Temp Pulse Resp BP Sys/Machado Pulse Ox Last 24 Hr 98.5 F-99.4 F 74-92 21-49 109-160/53-77 93-97 GENERAL: Intubated and sedated. responsive to verbal and tachtile stimuli, In no acute distress, minimally responsive to tactile stimuli, nonverbal HEAD: Normal with no signs of trauma. EYES: pin point pupils, no sclera anicteric, conjunctiva clear. EARS, NOSE, THROAT: Ears normal, nares patent, oropharynx clear without exudates. Moist mucous membranes. NECK: Normal range of motion, supple without lymphadenopathy, JVD, or masses. tracheostomy in place LUNGS: distant breath sounds, + crackles, No wheezes, and no crackles. No accessory muscle use. HEART: distant heart sounds no murmurs appreciated. ABDOMEN: Soft, nontender, not distended, normoactive bowel sounds, no guarding, no rebound, no masses. Peg tube in place MUSCULOSKELETAL: moves right upper ext, retracts R>L lower ext to pain, not move Left upper LOWER EXTREMITIES: 2+ pulses, warm, well-perfused. No calf tenderness. trace peripheral edema. PSYCHIATRIC: intubated sedated SKIN: Warm, dry, normal turgor, no rashes or lesions noted. Laboratory Results - last 24 hr 10/24/16 10/24/16 10/24/16 05:54 11:36 16:33 WBC RBC Hgb Hct MCV MCHC RDW Plt Count MPV INR PTT (Actin FS) Puncture Site ABG pH ABG pCO2 at Pt Temp ABG pO2 at Pt Temp ABG HCO3 ABG O2 Sat (Measured) ABG O2 Content ABG Base Excess Alexandro Test O2 Delivery Device Oxygen Flow Rate Vent Mode Vent Rate Mechanical Rate PEEP Pressure Support Vent Sodium Potassium Chloride Carbon Dioxide Anion Gap BUN Creatinine POC Glucometer [phone] [phone] Random Glucose Calcium Phosphorus Magnesium 10/24/16 10/25/16 10/25/16 19:15 03:13 05:30 WBC 15.2 H RBC 4.17 Hgb 11.8 Hct 34.9 L MCV 83.7 MCHC 33.7 RDW 14.4 Plt Count 365 MPV 9.6 INR 1.12 PTT (Actin FS) Puncture Site ABG pH ABG pCO2 at Pt Temp ABG pO2 at Pt Temp ABG HCO3 ABG O2 Sat (Measured) ABG O2 Content ABG Base Excess Alexandro Test O2 Delivery Device Oxygen Flow Rate Vent Mode Vent Rate Mechanical Rate PEEP Pressure Support Vent Sodium Potassium Chloride Carbon Dioxide Anion Gap BUN Creatinine POC Glucometer [phone] Random Glucose Calcium Phosphorus Magnesium 10/25/16 10/25/16 10/25/16 05:30 05:30 05:34 WBC RBC Hgb Hct MCV MCHC RDW Plt Count MPV INR 1.19 H PTT (Actin FS) 28.7 Puncture Site ABG pH ABG pCO2 at Pt Temp ABG pO2 at Pt Temp ABG HCO3 ABG O2 Sat (Measured) ABG O2 Content ABG Base Excess Alexandro Test O2 Delivery Device Oxygen Flow Rate Vent Mode Vent Rate Mechanical Rate PEEP Pressure Support Vent Sodium 136 Potassium 4.7 Chloride 100 Carbon Dioxide 27 Anion Gap 9 BUN 23 H Creatinine 0.6 L POC Glucometer [phone] Random Glucose 197 H D Calcium 7.5 L Phosphorus 2.8 Magnesium 1.8 10/25/16 07:20 WBC RBC Hgb Hct MCV MCHC RDW Plt Count MPV INR PTT (Actin FS) Puncture Site Right radial ABG pH 7.51 H ABG pCO2 at Pt Temp 33.4 L ABG pO2 at Pt Temp 76.0 D ABG HCO3 26.1 H ABG O2 Sat (Measured) 95.7 ABG O2 Content 15.7 ABG Base Excess 3.6 H Alexandro Test Positive O2 Delivery Device Mechanical vent Oxygen Flow Rate 40% Vent Mode A/c Vent Rate 12 Mechanical Rate Yes PEEP 5.0 Pressure Support Vent 500ml Sodium Potassium Chloride Carbon Dioxide Anion Gap BUN Creatinine POC Glucometer Random Glucose Calcium Phosphorus Magnesium Active Medications Generic Name Dose Route Start Last Admin Trade Name Freq PRN Reason Stop Dose Admin Acetaminophen 650 mg 10/15/16 16:23 10/21/16 16:53 Tylenol Suppository - FL 650 mg Q6H PRN Administration FEVER OR PAIN Aspirin 81 mg 10/22/16 12:00 10/24/16 10:06 Asa - PO 81 mg DAILY KARLOS Administration Atorvastatin Calcium 40 mg 10/20/16 22:00 10/24/16 21:39 Lipitor - PO 40 mg HS KARLOS Administration Chlorhexidine Gluconate 1 applic 10/15/16 22:00 10/24/16 21:39 Hibiclens For Decolonization - TP 1 applic HS KARLOS Administration Chlorhexidine Gluconate 15 ml 10/17/16 22:00 10/24/16 21:39 Peridex - MM 15 ml BID KARLOS Administration Heparin Sodium (Porcine) 5,000 unit 10/18/16 22:00 10/24/16 10:06 Heparin - SQ 5,000 unit BID KARLOS Administration Pantoprazole Sodium 100 mls @ 200 mls/hr 10/15/16 15:15 10/24/16 10:06 Protonix 40mg Ivpb (Pre-Docked) IVPB 200 mls/hr DAILY KARLOS Administration Propofol 100 mls @ 2.353 mls/hr 10/15/16 16:00 10/24/16 16:10 Diprivan - IVPB 4.9 mls/hr TITR KARLOS Administration Protocol 5 MCG/KG/MIN Propofol 100 mls @ 2.424 mls/hr 10/19/16 23:30 10/25/16 03:08 Diprivan - IVPB Not Given TITR KARLOS Protocol 5 MCG/KG/MIN Imipenem/Cilastatin Sodium 500 100 mls @ 100 mls/hr 10/21/16 09:00 10/25/16 03: 18 mg/ Sodium Chloride IVPB 100 mls/hr Q6H-IV KARLOS Administration Protocol Insulin Aspart 1 vial 10/19/16 00:00 10/25/16 05:49 Novolog Vial Sliding Scale - SQ 6 units Q6HPO KARLOS Administration Protocol Insulin Detemir 10 units 10/19/16 07:00 10/25/16 07:16 Levemir Vial SQ 10 units BIDI KARLOS Administration Metoprolol Tartrate 12.5 mg 10/20/16 22:00 10/25/16 05:49 Lopressor - PO 12.5 mg TID KARLOS Administration ASSESSMENT/PLAN: 86 year old male from [facility] with PMH of HTN, HLD, CAD s/p bare metal stent, afib, L atrial lipoma, latent TB, Alzheimer's dementia and DM who was recently discharged for Influenza A and treated with Tamiflu 10/11/16 who presents to the ER via EMS for worsening dypsnea and confusion. Sever sepsis 2/2 HCAP, slightly wbc trending down, afebrile over night, possible aspirant due to his Alzheimer. chest chest xray inc bibaselir changes. ID consult. PCN allergy noted, restart antibiotics last day Vanco,will cont Imipenem 7 day course f/u cultures one more Vanco given for peg tube procedure prophylaxis Acute hypoxic respiratory failure- Acute (uncompensated) primary respiratory alkalosis, with metabolic alkalosis CXR read with b/l lower lobe infiltrate, PNA vs pulmonary edema vs aspiration pneumonia Patient currently mechanically ventilated - patient difficult to to ween, start spontaneous breathing trials as tolerated when mental status improves minimize sedation to assess mental status Taper FI O2, keep O2 >90% ABG in AM DKA resolved Troponins - Demand Ischemia 2/2 Sepsis echo here with severe dec lvef- trend troponins, echo shows EF of 29.6%, left ventricular systolic function severely reduced. Left atrium borderline dilated. RV mildly dilated. RV size moderately reduced. None acute wall KS stemi Dementia is relative contraindication to thrombolysis cont metoprolol 12.5 and will watch for hypotension cont statin, beta blockers, and ASA will hold, asa, heparin, for after the procedure JULIET, improving prerenal azotemia 2/2 sepsis monitor urine output and creatinine free water feeds Dementia As per medical records, baseline verbal and AOx1 currently cannot assess, sedated and intubated minimize sedation to assess mental status HTN as per cardiac, Lopressor given if BP <120/80, hold antihypertensives Hypernatremea continue free water NGT FEN tube feed. free water per NG tube replete electrolytes as needed, keep mag >2.0, replete phosphorus will start tomorrow, DVT prophylaxis on heparin 5,000 units SQ TID GI prophylaxis - protonix Dispo: We will continue to follow the patient. Thank you for this consultative opportunity. Visit type - Emergency Visit Emergency Visit: Yes ED Registration Date: 10/15/16 Care time: The patient presented to the Emergency Department on the above date and was hospitalized for further evaluation of their emergent condition. - New Patient This patient is new to me today: No - Critical Care Critical Care patient: Yes Total Critical Care Time (in minutes): 90 Critical Care Statement: The care of this patient involved high complexity decision making to prevent further life threatening deterioration of the patient 's condition and/or to evalute & treat vital organ system(s) failure or risk of failure.
[2016-10-25] MEDS: PANTOPRAZOLE SODIUM 100 ML IVPB SCH (09:23)
[2016-10-25] MEDS: CHLORHEXIDINE GLUCONATE 0.12% 15ML CUP MM SCH ×2 (09:28→22:46)
--- NOTE | 2016-10-25 10:12 | PN ---
Progress Note (short form) - Note Progress Note: Reviewed charts, films, labs, vs, i/o's. No major event o/n. On vent. Following command. afeb. rrr. b/l rhonchi. +bs, soft, nt, nd. no c/c/e. CBC, BMP 10/25/16 05:30 10/25/16 05:30 Vital Signs Period Temp Pulse Resp BP Sys/Machado Pulse Ox Last 24 Hr 98.7 F-99.4 F 78-92 21-49 109-160/53-77 93-97 Vital Signs (72 hours) 10/22/16 10/22/16 10/22/16 11:17 11:55 12:00 Temperature Pulse Rate 78 93 H Respiratory 19 28 H Rate Blood Pressure 163/85 O2 Sat by Pulse 97 Oximetry (%) 10/22/16 10/22/16 10/22/16 12:09 14:00 14:02 Temperature 100.2 F H Pulse Rate 108 H Respiratory 28 H 21 Rate Blood Pressure 183/89 O2 Sat by Pulse 91 L Oximetry (%) 10/22/16 10/22/16 10/22/16 16:00 16:15 17:49 Temperature Pulse Rate 80 Respiratory 22 19 Rate Blood Pressure 139/75 O2 Sat by Pulse 95 Oximetry (%) 10/22/16 10/22/16 10/22/16 17:51 19:11 20:00 Temperature 99.3 F Pulse Rate 83 84 Respiratory 25 H 26 H 24 Rate Blood Pressure 138/75 150/70 O2 Sat by Pulse 95 Oximetry (%) 10/22/16 10/22/16 10/23/16 22:00 22:47 00:00 Temperature 99.4 F Pulse Rate 74 70 Respiratory 21 23 22 Rate Blood Pressure 155/72 130/78 O2 Sat by Pulse 95 Oximetry (%) 10/23/16 10/23/16 10/23/16 01:47 02:00 04:00 Temperature 97.8 F Pulse Rate 78 84 Respiratory 27 H 18 18 Rate Blood Pressure 146/72 134/57 O2 Sat by Pulse Oximetry (%) 10/23/16 10/23/16 10/23/16 04:50 06:00 07:27 Temperature 97.2 F L Pulse Rate 84 Respiratory 29 H 18 28 H Rate Blood Pressure 151/78 O2 Sat by Pulse Oximetry (%) 10/23/16 10/23/16 10/23/16 08:00 09:00 09:15 Temperature Pulse Rate 80 Respiratory 20 30 H Rate Blood Pressure 161/83 O2 Sat by Pulse 94 L 94 L Oximetry (%) 10/23/16 10/23/16 10/23/16 09:40 09:51 10:00 Temperature 99.4 F Pulse Rate 90 101 H Respiratory 20 Rate Blood Pressure 147/82 O2 Sat by Pulse 94 L 94 L Oximetry (%) 10/23/16 10/23/16 10/23/16 12:00 12:04 14:00 Temperature 98.3 F Pulse Rate 95 H 96 H Respiratory 27 H 19 26 H Rate Blood Pressure 155/80 163/82 O2 Sat by Pulse Oximetry (%) 10/23/16 10/23/16 10/23/16 14:15 16:00 16:07 Temperature Pulse Rate 80 Respiratory 24 23 Rate Blood Pressure 136/68 O2 Sat by Pulse 94 L Oximetry (%) 10/23/16 10/23/16 10/23/16 16:15 18:00 19:04 Temperature 99.6 F Pulse Rate 83 Respiratory 26 H 21 22 Rate Blood Pressure 166/87 O2 Sat by Pulse Oximetry (%) 10/23/16 10/23/16 10/23/16 20:00 21:00 22:00 Temperature 99.6 F Pulse Rate 79 Respiratory 25 H 23 22 Rate Blood Pressure 157/78 O2 Sat by Pulse 94 L 94 L Oximetry (%) 10/23/16 10/24/16 10/24/16 22:57 00:00 00:32 Temperature Pulse Rate 89 72 Respiratory 20 21 Rate Blood Pressure 124/60 O2 Sat by Pulse 94 L Oximetry (%) 10/24/16 10/24/16 10/24/16 02:00 02:58 04:00 Temperature 99.3 F Pulse Rate 74 76 Respiratory 23 22 22 Rate Blood Pressure 105/56 128/66 O2 Sat by Pulse Oximetry (%) 10/24/16 10/24/16 10/24/16 05:05 06:00 07:20 Temperature 99.4 F Pulse Rate 79 Respiratory 26 H 22 19 Rate Blood Pressure 135/72 O2 Sat by Pulse Oximetry (%) 10/24/16 10/24/16 10/24/16 08:00 09:00 09:55 Temperature Pulse Rate 76 74 Respiratory 14 23 22 Rate Blood Pressure 132/63 O2 Sat by Pulse 94 L 97 Oximetry (%) 10/24/16 10/24/16 10/24/16 10:00 10:20 12:00 Temperature 98.5 F Pulse Rate 76 78 Respiratory 30 H 49 H 26 H Rate Blood Pressure 148/68 142/64 O2 Sat by Pulse 97 97 Oximetry (%) 10/24/16 10/24/16 10/24/16 12:15 14:00 14:35 Temperature Pulse Rate 79 Respiratory 23 30 H 25 H Rate Blood Pressure 160/77 O2 Sat by Pulse Oximetry (%) 10/24/16 10/24/16 10/24/16 16:00 16:37 18:00 Temperature 98.9 F Pulse Rate 80 88 Respiratory 26 H 24 28 H Rate Blood Pressure 160/77 129/70 O2 Sat by Pulse Oximetry (%) 10/24/16 10/24/16 10/24/16 18:42 20:00 20:30 Temperature 98.7 F Pulse Rate 82 Respiratory 23 27 H 27 H Rate Blood Pressure 109/53 O2 Sat by Pulse Oximetry (%) 10/24/16 10/24/16 10/25/16 21:20 22:00 00:00 Temperature Pulse Rate 86 89 Respiratory 26 H 22 21 Rate Blood Pressure 137/72 135/65 O2 Sat by Pulse 93 L Oximetry (%) 10/25/16 10/25/16 10/25/16 00:20 02:00 03:21 Temperature 99.4 F Pulse Rate 90 Respiratory 25 H 23 29 H Rate Blood Pressure 133/67 O2 Sat by Pulse Oximetry (%) 10/25/16 10/25/16 10/25/16 04:00 06:00 06:36 Temperature Pulse Rate 92 H 82 Respiratory 24 24 25 H Rate Blood Pressure 147/73 149/73 O2 Sat by Pulse Oximetry (%) 10/25/16 10/25/16 10/25/16 07:41 08:00 08:12 Temperature Pulse Rate 87 Respiratory 25 H 29 H 25 H Rate Blood Pressure 144/69 O2 Sat by Pulse 93 L Oximetry (%) a/p 86 yo, m, pna and respiratory failure. remains intubated and unable to wean vent supp. 1. cont icu care 2. abx per id 3. scheduled for perc trach and poss open today Problem List - Problems (1) Acute respiratory failure with hypoxia Code(s): J96.01 - ACUTE RESPIRATORY FAILURE WITH HYPOXIA
--- NOTE | 2016-10-25 10:37 | PN ---
Progress Note, Physician Chief Complaint: intubated remains afebrile opens eyes to name does not follow commands - Current Medication List Current Medications: Active Medications Acetaminophen (Tylenol Suppository -) 650 mg LA Q6H PRN PRN Reason: FEVER OR PAIN Last Admin: 10/21/16 16:53 Dose: 650 mg Aspirin (Asa -) 81 mg PO DAILY [facility] Last Admin: 10/24/16 10:06 Dose: 81 mg Atorvastatin Calcium (Lipitor -) 40 mg PO HS [facility] Last Admin: 10/24/16 21:39 Dose: 40 mg Chlorhexidine Gluconate (Hibiclens For Decolonization -) 1 applic TP HS [facility] Last Admin: 10/24/16 21:39 Dose: 1 applic Chlorhexidine Gluconate (Peridex -) 15 ml MM BID [facility] Last Admin: 10/25/16 09:28 Dose: 15 ml Heparin Sodium (Porcine) (Heparin -) 5,000 unit SQ BID [facility] Last Admin: 10/24/16 10:06 Dose: 5,000 unit Pantoprazole Sodium (Protonix 40mg Ivpb (Pre-Docked)) 100 mls @ 200 mls/hr IVPB DAILY [facility] Last Admin: 10/25/16 09:23 Dose: 200 mls/hr Propofol (Diprivan -) 100 mls @ 2.353 mls/hr IVPB TITR KARLOS; 5 MCG/KG/MIN PRN Reason: Protocol Last Admin: 10/24/16 16:10 Dose: 4.9 mls/hr Propofol (Diprivan -) 100 mls @ 2.424 mls/hr IVPB TITR KARLOS; 5 MCG/KG/MIN PRN Reason: Protocol Last Admin: 10/25/16 03:08 Dose: Not Given Imipenem/Cilastatin Sodium 500 (mg/ Sodium Chloride) 100 mls @ 100 mls/hr IVPB Q6H-IV KARLOS PRN Reason: Protocol Last Admin: 10/25/16 09:22 Dose: 100 mls/hr Insulin Aspart (Novolog Vial Sliding Scale -) 1 vial SQ Q6HPO KARLOS PRN Reason: Protocol Last Admin: 10/25/16 05:49 Dose: 6 units Insulin Detemir (Levemir Vial) 10 units SQ BIDI [facility] Last Admin: 10/25/16 07:16 Dose: 10 units Metoprolol Tartrate (Lopressor -) 12.5 mg PO TID [facility] Last Admin: 10/25/16 05:49 Dose: 12.5 mg - Objective Vital Signs: Vital Signs Temperature 99.4 F 10/25/16 02:00 Pulse Rate 87 10/25/16 08:00 Respiratory Rate 25 H 10/25/16 08:12 Blood Pressure 144/69 10/25/16 08:00 O2 Sat by Pulse Oximetry (%) 93 L 10/25/16 08:12 Constitutional: Yes: No Distress, Other (intubated) Cardiovascular: Yes: Regular Rate and Rhythm, Tachycardia Respiratory: Yes: Diminished Gastrointestinal: Yes: Normal Bowel Sounds, Soft, Abdomen, Obese. No: Distention, Tenderness Edema: Yes Labs: CBC, BMP 10/25/16 05:30 10/25/16 05:30 INR, PTT INR 1.19 (0.82-1.09) H 10/25/16 05:30 Problem List - Problems (1) Acute respiratory failure with hypoxia Code(s): J96.01 - ACUTE RESPIRATORY FAILURE WITH HYPOXIA (2) Sepsis Code(s): A41.9 - SEPSIS, UNSPECIFIED ORGANISM Qualifiers: Sepsis type: sepsis due to unspecified organism Qualified Code(s): A41.9 - Sepsis, unspecified organism (3) Alzheimer disease Code(s): G30.9 - ALZHEIMER'S DISEASE, UNSPECIFIED Qualifiers: Alzheimer's disease onset: early-onset Dementia behavioral disturbance : without behavioral disturbance Qualified Code(s): G30.0 - Alzheimer's disease with early onset; F02.81 - Dementia in other diseases classified elsewhere with behavioral disturbance (4) Healthcare-associated pneumonia Code(s): J18.9 - PNEUMONIA, UNSPECIFIED ORGANISM Assessment/Plan PLAN unable to wean IV antibiotics-- total 7 days of Imepenum nebs prognosis guarded daughter wants trach-- plan for trach today will need feeding tube as well
[2016-10-25] MEDS ORDERED: VECURONIUM BROMIDE 10 MG VIAL ONE (11:30)
--- NOTE | 2016-10-25 12:58 | PROC ---
Procedure Note Procedure: BRONCHOSCOPY NOTE Storz video bronchoscope was passed via the ETT and airways were examined down to the subsegmental level. Susan was sharp, no endobronchial lesions noted in either lung. Thin secretions throughout the airways. Trachea visualized as percutaneous tracheostomy placed by surgeon. After placement, bronchoscope passed via the tracheostomy to confirm placement. No active bleeding noted. Bronchoscope withdrawn. Clint Lizarraga MD
--- NOTE | 2016-10-25 13:05 | OP ---
Operative Note - Note: Operative Date: 10/25/16 Pre-Operative Diagnosis: respiratory failure Operation: Flexible brochoscopy and bronchial washing (Dr. Clint Lizarraga). Percutaneous tracheostomy tube placement (Dr. Ishan Galloway) Findings: see dictation Post-Operative Diagnosis: Same as Pre-op Surgeon: Ishan Galloway Anesthesia: General Specimens Removed: bronchial washing Operative Report Dictated: Yes
--- NOTE | 2016-10-25 13:29 | OP ---
DATE OF OPERATION: 10/25/2016 CO-SURGEON: Clint Lizarraga MD PREOPERATIVE DIAGNOSIS: Acute respiratory failure and prolonged ventilator support POSTOPERATIVE DIAGNOSIS: Acute respiratory failure and prolonged ventilator support OPERATION: Percutaneous tracheostomy tube placement. ANESTHESIA: General endotracheal anesthesia and local, lidocaine 1%, 5 mL. SPECIMEN: Bronchial washing. COMPLICATIONS: None. INDICATION FOR SURGERY: The patient is an 86-year-old male with a history of dementia who presented to [facility] with complaint of shortness of breath and cough. The patient developed acute respiratory failure and subsequently intubated and sedated on mechanical ventilator. The patient is unable to wean and requires a long-term ventilator support. Thoracic Surgery was consulted for aforementioned procedure. The risks, benefits, alternative plans, and potential complications, including, but not limited to, infection, bleeding, recurrence of disease, injury to other organs, reintubation, sepsis, cardiac compromise requiring vasopressors, respiratory failure, and prolonged ventilator support, and were discussed with the patient's family in extensive detail and they agreed to proceed with the surgical intervention. Dr. Clint Lizarraga was the co-surgeon. OPERATIVE PROCEDURE: The patient remains intubated and sedated on mechanical ventilator support. He was placed in supine position with a shoulder roll in the back. A flexible bronchoscopy was performed by Dr. Clint Lizarraga. The patient was found to have a moderate amount of mucus in the airway. Using a copious amount of normal saline, the entire airway was irrigated and suctioned out and sent for culture. Next the attention was turned to percutaneous tracheotomy tube procedure. The anterior neck was prepped and draped in the standard surgical fashion. Using #15 blade, 1 cm skin incision was made one finger-breadth above the sternal notch. The cricothyroid membrane was palpated and the tracheal rings were noted. The second tracheal interspace was identified. This was then accessed with a needle and sheath and a Seldinger technique was employed. Identification of the location of the tracheostomy site was confirmed with fiberoptic bronchoscopy. Once endotracheal position of the sheath and guidewire were confirmed, the tracheostomy site was serially dilated. Next, a cuffed #8 Shiley tracheostomy tube was inserted over a tracheal dilator, over the guidewire, into the trachea. The Shiley cuff was inflated and the dilator and guidewire were removed. The inner cannula was introduced and the ventilator was connected to the newly formed tracheostomy. The previous endotracheal tube was removed, and the patient was ventilated adequately through the percutaneous tracheostomy. The tracheostomy itself was secured with 2-0 Prolene x4 at the skin. Also, a Velcro neck tie was employed to help secure the tracheostomy tube. No air leak was noted. Tidal volumes were appropriate for the ventilator settings. A flexible bronchoscopy was performed again to confirm the tip of the tracheostomy tube and complete hemostasis at the end of the case. Sterile dressing was placed over the incision and tracheostomy tube site. The patient tolerated the procedure well with no complication. The patient remains intubated, sedated , in stable condition. I, Dr. Ishan Galloway, was present for the entire surgical procedure. An additional operative note will be dictated by Dr. Clint Lizarraga for his part of surgical procedure. Alex [id number]
[2016-10-25] MEDS ORDERED: METOPROLOL TARTRATE 5 MG/5 ML VIAL IVPUSH PRN (13:31)
[2016-10-25] MEDS ORDERED: FUROSEMIDE 40 MG/4 ML INJECTABLE VIAL IVPUSH ONE (13:32)
--- NOTE | 2016-10-25 13:36 | PN ---
Teaching Attending Note Name of Resident: Madeline Mayo ATTENDING PHYSICIAN STATEMENT I saw and evaluated the patient. I reviewed the resident's note and discussed the case with the resident. I agree with the resident's findings and plan as documented. SUBJECTIVE: Pt seen and examined in the ICU. s/p bedside tracheostomy. For PEG placement today as well. OBJECTIVE: Last Vital Signs Temp Pulse Resp BP Pulse Ox 99.2 F 86 28 H 100/55 93 L 10/25/16 10:00 10/25/16 12:00 10/25/16 12:00 10/25/16 12:00 10/25/16 09:36 Intake & Output 10/22/16 10/23/16 10/24/16 10/25/16 23:59 23:59 23:59 23:59 Intake Total 4314 4986 4779 51 Output Total 1550 1500 1550 600 Balance 2764 3486 3229 -549 Weight 178 lb 9 oz 189 lb 9.561 oz 185 lb 10.067 oz 184 lb 15.485 oz Gen: intubated, trached Heart: RRR Lung: scattered rhonchi Abd: soft, nontender Ext: + edema CBC, BMP 10/25/16 05:30 10/25/16 05:30 Active Medications Acetaminophen (Tylenol Suppository -) 650 mg [place] Q6H PRN PRN Reason: FEVER OR PAIN Last Admin: 10/21/16 16:53 Dose: 650 mg Aspirin (Asa -) 81 mg PO DAILY [facility] Last Admin: 10/24/16 10:06 Dose: 81 mg Atorvastatin Calcium (Lipitor -) 40 mg PO HS [facility] Last Admin: 10/24/16 21:39 Dose: 40 mg Chlorhexidine Gluconate (Hibiclens For Decolonization -) 1 applic TP HS [facility] Last Admin: 10/24/16 21:39 Dose: 1 applic Chlorhexidine Gluconate (Peridex -) 15 ml MM BID [facility] Last Admin: 10/25/16 09:28 Dose: 15 ml Furosemide (Lasix Injection -) 40 mg IVPUSH ONCE ONE Stop: 10/25/16 13:33 Pantoprazole Sodium (Protonix 40mg Ivpb (Pre-Docked)) 100 mls @ 200 mls/hr IVPB DAILY [facility] Last Admin: 10/25/16 09:23 Dose: 200 mls/hr Propofol (Diprivan -) 100 mls @ 2.353 mls/hr IVPB TITR [facility]; 5 MCG/KG/MIN PRN Reason: Protocol Last Admin: 10/24/16 16:10 Dose: 4.9 mls/hr Propofol (Diprivan -) 100 mls @ 2.424 mls/hr IVPB TITR [facility]; 5 MCG/KG/MIN PRN Reason: Protocol Last Admin: 10/25/16 03:08 Dose: Not Given Imipenem/Cilastatin Sodium 500 (mg/ Sodium Chloride) 100 mls @ 100 mls/hr IVPB Q6H-IV [facility] PRN Reason: Protocol Last Admin: 10/25/16 09:22 Dose: 100 mls/hr Insulin Aspart (Novolog Vial Sliding Scale -) 1 vial SQ Q6HPO [facility] PRN Reason: Protocol Last Admin: 10/25/16 05:49 Dose: 6 units Insulin Detemir (Levemir Vial) 10 units SQ BIDI [facility] Last Admin: 10/25/16 07:16 Dose: 10 units Metoprolol Tartrate (Lopressor -) 12.5 mg PO TID [facility] Last Admin: 10/25/16 05:49 Dose: 12.5 mg Metoprolol Tartrate (Lopressor Injection -) 5 mg IVPUSH Q6H PRN PRN Reason: HYPERTENSION ASSESSMENT AND PLAN: Acute Hypoxic Respiratory Failure Pneumonia Recent Influenza Severe Sepsis Acute Kidney Injury improving Lactic Acidosis resolved +Troponins - ?Demand Ischemia from Sepsis LV Systolic Heart Failure HTN CAD DM Dementia - continue antibiotics per ID - lasix today - monitor urine output, creatinine - ASA, beta regina - taper Fio2 to keep Spo2 >90% - minimize sedation to assess mental status - spontaneous breathing trials as tolerated - for PEG placement - DVT/GI prophylaxis - continue ICU monitoring critical care time spent in reviewing chart, evaluating patient and formulating plan 40 min
[2016-10-25] MEDS ORDERED: PROPOFOL 20 ML ONE (14:42)
[2016-10-25] MEDS ORDERED: PROPOFOL 200 MG/20 ML VIAL IVPUSH ONE ×2 (15:34)
[2016-10-25] MEDS ORDERED: VECURONIUM BROMIDE 50 MG VIAL IVPUSH ONE (15:45)
--- NOTE | 2016-10-25 15:56 | CON.GI ---
Consult Consult Specialty:: gastroenterology Referred by:: Dr Maggie John - History of Present Illness History of Present Illness: 86 y/o male was seen in ICU for Peg evaluation. He was admitted with CVA, acute encephalopathy and respiratory failure. He underwent tracheostomy tube today. 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 Cardio/Vascular: Yes: HTN - Alcohol/Substance Use Hx Alcohol Use: No - Smoking History Smoking history: Former smoker Have you smoked in the past 12 months: No If you are a former smoker, when did you quit?: 1999 - Social History Usual Living Arrangement: Residential ADL: Support Services Home Medications - Allergies Allergies/Adverse Reactions: Allergies Allergy/AdvReac Type Severity Reaction Status Date / Time Penicillins Allergy Verified 10/15/16 08:41 - Home Medications Home Medications: Ambulatory Orders Metoprolol Succinate [Toprol XL -] 12.5 mg PO DAILY 03/26/16 Acetaminophen [Tylenol] 650 mg PO Q6H PRN 10/08/16 Amlodipine Besylate [Norvasc -] 2.5 mg PO DAILY 10/08/16 Aspirin [ASA -] 81 mg PO DAILY 10/08/16 Cyanocobalamin Vit B-12 Inj. [Vitamin B12 Injection -] 1,000 mcg IM ASDIR Metformin HCl [Metformin HCl ER] 500 mg PO BID 10/08/16 Albuterol 0.083% Nebulizer Princess [Ventolin 0.083% Nebulizer Soln -] 1 amp NEB QIDR #20 amp 10/11/16 Review of Systems Unable to obtain ROS, reason: clinical condition Physical Exam-GI Vital Signs: Vital Signs Temperature 99 F 10/25/16 14:00 Pulse Rate 88 10/25/16 14:00 Respiratory Rate 28 H 10/25/16 14:00 Blood Pressure 130/74 10/25/16 14:00 O2 Sat by Pulse Oximetry (%) 93 L 10/25/16 09:36 Constitutional: Yes: No Distress, Other (on a vent) Eyes: Yes: Conjunctiva Clear HENT: Yes: Atraumatic Neck: Yes: Supple Cardiovascular: Yes: Regular Rate and Rhythm Respiratory: Yes: CTA Bilaterally ...Palpate: Yes: Soft. No: Firm/Rigid, Guarding, Hepatomegaly, Mass, Pulsatile Mass, Splenomegaly, Tenderness Labs: CBC, BMP 10/25/16 05:30 10/25/16 05:30 INR, PTT INR 1.19 (0.82-1.09) H 10/25/16 05:30 Assessment/Plan Dysphagia R. for Peg insertion,informed consent obtained from her daughter.
--- NOTE | 2016-10-25 15:59 | PN ---
Progress Note (short form) - Note Progress Note: s/p bedside PEG insertion . 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 I will let family know. In view of underlying medical problems will perform polyperctomy once medically improved. Can start tube feeds today
[2016-10-25] MEDS ORDERED: VANCOMYCIN 1,250 MG in DEXTROSE 5%-WATER - 250 ML IVPB ONE (16:00)
--- NOTE | 2016-10-25 17:31 | PN ---
Progress Note (short form) - Note Progress Note: Progress note : S/p Trach and PEG remains intubated /sedated minimally responsive eyes closed shut, may move RUE non-purposefully no clear posturing + corneals, neck supple withdraws r foot, R planar up - Current Medication List Current Medications: Active Medications Acetaminophen (Tylenol Suppository -) 650 mg [place] Q6H PRN PRN Reason: FEVER OR PAIN Last Admin: 10/21/16 16:53 Dose: 650 mg Aspirin (Asa -) 81 mg PO DAILY [facility] Last Admin: 10/22/16 12:51 Dose: 81 mg Atorvastatin Calcium (Lipitor -) 40 mg PO HS [facility] Last Admin: 10/22/16 21:52 Dose: 40 mg Chlorhexidine Gluconate (Hibiclens For Decolonization -) 1 applic TP HS [facility] Last Admin: 10/22/16 21:51 Dose: 1 applic Chlorhexidine Gluconate (Peridex -) 15 ml MM BID [facility] Last Admin: 10/22/16 21:50 Dose: 15 ml Heparin Sodium (Porcine) (Heparin -) 5,000 unit SQ BID [facility] Last Admin: 10/22/16 21:50 Dose: 5,000 unit Pantoprazole Sodium (Protonix 40mg Ivpb (Pre-Docked)) 100 mls @ 200 mls/hr IVPB DAILY [facility] Last Admin: 10/22/16 09:20 Dose: 200 mls/hr Propofol (Diprivan -) 100 mls @ 2.353 mls/hr IVPB TITR [facility]; 5 MCG/KG/MIN PRN Reason: Protocol Last Admin: 10/22/16 17:17 Dose: 3.294 mls/hr Propofol (Diprivan -) 100 mls @ 2.424 mls/hr IVPB TITR [facility]; 5 MCG/KG/MIN PRN Reason: Protocol Last Admin: 10/23/16 00:06 Dose: 4.848 mls/hr Vancomycin HCl 1,250 mg/ (Dextrose) 250 mls @ 166.667 mls/hr IVPB DAILY [facility] PRN Reason: Protocol Last Admin: 10/22/16 12:11 Dose: 166.667 mls/hr Imipenem/Cilastatin Sodium 500 (mg/ Sodium Chloride) 100 mls @ 100 mls/hr IVPB Q6H-IV [facility] PRN Reason: Protocol Last Admin: 10/23/16 03:53 Dose: 100 mls/hr Insulin Aspart (Novolog Vial Sliding Scale -) 1 vial SQ Q6HPO [facility] PRN Reason: Protocol Last Admin: 10/23/16 06:08 Dose: 4 units Insulin Detemir (Levemir Vial) 10 units SQ BIDI [facility] Last Admin: 10/23/16 06:08 Dose: 10 units Metoprolol Tartrate (Lopressor -) 12.5 mg PO TID [facility] Last Admin: 10/23/16 06:08 Dose: 12.5 mg - Objective Vital Signs: normotensive, breathing over vent Neurological: Yes: Other (see above) Labs: CBC, BMP 10/23/16 05:15 INR, PTT INR 1.24 (0.82-1.09) H 10/15/16 09:16 Problem List - Problems (1) Acute respiratory failure with hypoxia Code(s): J96.01 - ACUTE RESPIRATORY FAILURE WITH HYPOXIA (2) Cerebrovascular small vessel disease Code(s): I67.9 - CEREBROVASCULAR DISEASE, UNSPECIFIED (3) Encephalopathy acute Code(s): G93.40 - ENCEPHALOPATHY, UNSPECIFIED (4) Sepsis Code(s): A41.9 - SEPSIS, UNSPECIFIED ORGANISM Qualifiers: Sepsis type: sepsis due to unspecified organism Qualified Code(s): A41.9 - Sepsis, unspecified organism Assessment/Plan 86 year old male from [facility] with PMH of HTN, HLD, CAD s/p bare metal stent, afib, L atrial lipoma, latent TB, Alzheimer's dementia and DM -- now with prolonged encephalopathy from resp failure. has some residual brain function, appears to move R >L, possible superimposed ischemic event continues to be sedated and poorly arousable very poor prognosis given prolonged encepahlopathy, with underlying dementia and multiple comorbidities spoke to daughter on 10/24 , and explained prognosis, though she would like to still think about end of life decisions, still full code s/p trach and PEG revisit palliative care if /when daughter agrees Dr Kiran Problem List - Problems (1) Acute respiratory failure with hypoxia Code(s): J96.01 - ACUTE RESPIRATORY FAILURE WITH HYPOXIA (2) Cerebrovascular small vessel disease Code(s): I67.9 - CEREBROVASCULAR DISEASE, UNSPECIFIED (3) Encephalopathy acute Code(s): G93.40 - ENCEPHALOPATHY, UNSPECIFIED (4) Sepsis Code(s): A41.9 - SEPSIS, UNSPECIFIED ORGANISM Qualifiers: Sepsis type: sepsis due to unspecified organism Qualified Code(s): A41.9 - Sepsis, unspecified organism
[2016-10-25] MEDS ORDERED: ASPIRIN COATED 81 MG TABLET.EC PO SCH (18:45)
--- NOTE | 2016-10-25 18:58 | PN ---
Progress Note (short form) - Note Progress Note: CC: nstemi s: intubated, sedated, had tracheostomy and PEG tube placed today. lasix 40 mg IV x 1. o: Current Medications Acetaminophen (Tylenol Suppository -) 650 mg [place] Q6H PRN PRN Reason: FEVER OR PAIN Last Admin: 10/21/16 16:53 Dose: 650 mg Aspirin (Asa -) 81 mg PO DAILY [facility] Last Admin: 10/24/16 10:06 Dose: 81 mg Atorvastatin Calcium (Lipitor -) 40 mg PO HS [facility] Last Admin: 10/24/16 21:39 Dose: 40 mg Chlorhexidine Gluconate (Hibiclens For Decolonization -) 1 applic TP HS [facility] Last Admin: 10/24/16 21:39 Dose: 1 applic Chlorhexidine Gluconate (Peridex -) 15 ml MM BID [facility] Last Admin: 10/25/16 09:28 Dose: 15 ml Heparin Sodium (Porcine) (Heparin -) 5,000 unit SQ TID [facility] Pantoprazole Sodium (Protonix 40mg Ivpb (Pre-Docked)) 100 mls @ 200 mls/hr IVPB DAILY [facility] Last Admin: 10/25/16 09:23 Dose: 200 mls/hr Propofol (Diprivan -) 100 mls @ 2.353 mls/hr IVPB TITR [facility]; 5 MCG/KG/MIN PRN Reason: Protocol Last Admin: 10/25/16 16:30 Dose: 4.9 mls/hr Propofol (Diprivan -) 100 mls @ 2.424 mls/hr IVPB TITR [facility]; 5 MCG/KG/MIN PRN Reason: Protocol Last Admin: 10/25/16 03:08 Dose: Not Given Imipenem/Cilastatin Sodium 500 (mg/ Sodium Chloride) 100 mls @ 100 mls/hr IVPB Q6H-IV [facility] PRN Reason: Protocol Last Admin: 10/25/16 15:14 Dose: 100 mls/hr Insulin Aspart (Novolog Vial Sliding Scale -) 1 vial SQ Q6HPO [facility] PRN Reason: Protocol Last Admin: 10/25/16 17:41 Dose: 4 units Insulin Detemir (Levemir Vial) 10 units SQ BIDI [facility] Last Admin: 10/25/16 17:30 Dose: Not Given Metoprolol Tartrate (Lopressor -) 12.5 mg PO TID [facility] Last Admin: 10/25/16 05:49 Dose: 12.5 mg Metoprolol Tartrate (Lopressor Injection -) 5 mg IVPUSH Q6H PRN PRN Reason: HYPERTENSION Vital Signs Period Temp Pulse Resp BP Sys/Machado Pulse Ox Last 24 Hr 98.7 F-99.4 F 82-116 21-57 100-149/53-93 93-93 Intake & Output 10/23/16 10/24/16 10/25/16 10/26/16 07:59 07:59 07:59 07:59 Intake Total 4850 4481 3095 708 Output Total 1350 1450 1800 Balance 3500 3031 1295 708 Weight 189 lb 9.561 oz 185 lb 10.067 oz 184 lb 15.485 oz intubated, sedated rrr s1s2 no mrg coarse anteriorly, vented no jvd pos dp pt no jaundice diaphoresis trace le e/c/c abd nd pos bs CBC, BMP 10/25/16 05:30 10/25/16 05:30 Laboratory Tests 10/25/16 05:30 Magnesium 1.8 tele: sr, stach, pvc, pac, one episode of nsvt cxr: worsened congestion echo 10/2016: sev dilated lv, sev dec lvef, rv mod dilated, mod dec rv fcn, reina , mild mr est cct 36 mins Assessment/Plan HTN - becomes hypertensive when tachypneic or off sedation, but pressures tend to drop again when sedation is resumed. - currently bp acceptable, will uptitrate metoprolol acute hypoxic resp failure: -remains intubated -b/l infiltrates on cxr -suspect PNA (hi fever, recent + flu) >> chf. -cont abx per ID hi fever, sepsis -hemodynamically stable at present, without need for pressors JULIET: -initial creat 1.9, from 0.9-1.0 prior -? all sepsis related -cr now back to baseline s/p abx, ivfs prior h/o CAD, elevated troponin: -initial trop 3.4, normal ck. Trop now trending down. -florid sepsis picture makes the elevated troponin likely due to sepsis direct myocardial injury, vs Type II NC from hypoxia/tachycardia/? transiently hypotensive in NH -ECG with ischemic changes (TWIs anteriorly)--also could all be secondary to above -cannot definitively rule out acute AWMI based on his ecg, however not likely given changes improved on serial tracings; -echo here with severe dec lvef -treated as nstemi here s/p hep gtt x 72 hrs --> stopped 10/18, was off plavix while not taking po meds, con't to hold in light of clinical status. con' t asa. -cont statin and bb -cont tele -further ischemic eval based on clinical course NSVT: -intermittent recurrent brief runs on tele -replete lytes prn -cont bb as bp tolerates. will uptitrate bb today. systolic chf, likely chronic: -echo here showing biventricular failure -cont bb for now, consider kathie-i when stable -further ischemic eval based on clinical course - 10/25: worsening edema, s/p lasix 40 mg IV x 1. poor prognosis
[2016-10-25] MEDS: ATORVASTATIN CA 40 MG TABLET (FP) PO SCH (22:46)
[2016-10-25] MEDS: HEPARIN NA (PORCINE) 5,000 UNITS/ML 1ML VIAL SQ SCH (22:46)
[2016-10-25] MEDS: CHLORHEXIDINE GLUCONATE 4% CLEANSER FOR DECOLONIZATION TP SCH (22:47)
[2016-10-26] MEDS: IMIPENEM/CILASTATIN SODIUM 500 MG in SODIUM CHLORIDE 100 ML IVPB SCH ×4 (03:24→20:53)
[2016-10-26] MEDS: PROPOFOL 100 ML IVPB SCH ×3 (04:00→19:00)
[2016-10-26] MEDS: HEPARIN NA (PORCINE) 5,000 UNITS/ML 1ML VIAL SQ SCH ×3 (05:35→21:18)
[2016-10-26] MEDS: METOPROLOL TARTRATE 25 MG TABLET (FP) PO SCH ×3 (05:35→21:18)
[2016-10-26 06:04] LABS: MCH 27.4 pg (25.7-33.7); MCHC 32.5 g/dl (32.0-35.9); MEAN CELL VOLUME 84.1 fl (80-96); MEAN PLT VOLUME 9.6 fl (7.5-11.1); PLATELET COUNT 375 K/MM3 (134-434); RDW 14.3 % (11.9-15.9); WHITE BLOOD COUNT 22.2 K/mm3 (4.0-10.0)
[2016-10-26] MEDS: INSULIN SLIDING SCALE (NOVOLOG) 1 VIAL SQ SCH ×4 (06:18→17:15)
[2016-10-26] MEDS: INSULIN DETEMIR 100 UNITS/ML MDV SQ SCH ×2 (06:18→17:15)
[2016-10-26 06:19] LABS: CALCIUM 7.7 mg/dL (8.5-10.1); CREATININE 0.6 mg/dL (0.7-1.3); MAGNESIUM 1.7 mg/dL (1.8-2.4); PHOSPHOROUS 2.9 mg/dL (2.5-4.9)
[2016-10-26 07:27] LABS: ALLENS TEST POSITIVE; ART PUNCT SITE RIGHT RADIAL; ARTERIAL BLD GAS O2 SATURATION 92.1 % (90-98.9); ARTERIAL BLOOD GAS BASE EXCESS 2.1 meq/l (-2-2); ARTERIAL BLOOD GAS HCO3 25.4 meq/L (22-26); PT. ON O2? YES
[2016-10-26 07:28] LABS: ARTERIAL BLOOD GAS PO2 63.2 mmHg (68-100); ARTERIAL BLOOD GAS pH 7.46 (7.35-7.45); LPM/O2% 40%; MECH. VENT. YES; TYPE OF O2 VENTILATOR; VENT RATE 12; VT/PRESS 500
--- NOTE | 2016-10-26 07:54 | PN ---
Progress Note (short form) - Note Progress Note: ID Imipenem day 5 vanco added Temps seems to be down last 48hours intubated Post percutaneous tracheostomy Selected Entries 10/26/16 10/26/16 06:00 06:13 Temperature 99.2 F Pulse Rate 81 Respiratory 22 Rate Blood Pressure 141/60 Lung Rhonchi Cor S1 S2 Abd soft nontender Ext Trach Microbiology 10/21/16 12:30 Sputum - Endotrachea Suction/Ventilator Gram Stain - Final 10/21/16 12:30 Sputum - Endotrachea Suction/Ventilator Sputum Culture - Final Yeast Like Organism 10/21/16 08:30 Urine - Urine Palacio Urine Culture - Final NO GROWTH OBTAINED 10/17/16 15:00 Sputum - Endotrachea Suction/Ventilator Gram Stain - Final 10/17/16 15:00 Sputum - Endotrachea Suction/Ventilator Sputum Culture - Final Yeast Like Organism 10/21/16 09:50 Blood - Peripheral Venous Blood Culture - Preliminary NO GROWTH OBTAINED AFTER 96 HOURS, INCUBATION TO CONTINUE FOR 1 DAYS. 10/21/16 08:40 Blood - Peripheral Venous Blood Culture - Preliminary NO GROWTH OBTAINED AFTER 96 HOURS, INCUBATION TO CONTINUE FOR 1 DAYS. Laboratory Tests 10/26/16 10/26/16 05:10 05:10 WBC 22.2 H D Hgb 11.5 L Plt Count 375 BUN 20 H Creatinine 0.6 L Assessment Persistant leukocytosis which he did not have in early October 2016 Respiratory failure Sepsis syndrome Plan Will stop antibiotic sat am if WBC still up shcih I expect Will CT image chest and pelvis source of elevated WBC ESR CRP Mariana Peña MD Problem List - Problems (1) Acute respiratory failure with hypoxia Code(s): J96.01 - ACUTE RESPIRATORY FAILURE WITH HYPOXIA (2) Healthcare-associated pneumonia Code(s): J18.9 - PNEUMONIA, UNSPECIFIED ORGANISM (3) Sepsis Code(s): A41.9 - SEPSIS, UNSPECIFIED ORGANISM Qualifiers: Sepsis type: sepsis due to unspecified organism Qualified Code(s): A41.9 - Sepsis, unspecified organism
--- NOTE | 2016-10-26 08:36 | PN ---
Progress Note (short form) - Note Progress Note: SUBJECTIVE: Patient seen and examined in the ICU. Chart reviewed. Status post trach and PEG tube yesterday. Comfortable. Low grade temp. OBJECTIVE: Vital Signs 10/26/16 10/26/16 10/26/16 03:23 04:00 06:00 Temperature 99.2 F Pulse Rate 92 H 81 Respiratory 25 H 23 18 Rate Blood Pressure 149/67 141/60 O2 Sat by Pulse Oximetry (%) 10/26/16 10/26/16 10/26/16 06:13 08:00 08:46 Temperature Pulse Rate 91 H Respiratory 22 26 H 26 H Rate Blood Pressure 146/66 O2 Sat by Pulse 92 L Oximetry (%) 10/26/16 10/26/16 09:06 09:21 Temperature Pulse Rate Respiratory 27 H Rate Blood Pressure O2 Sat by Pulse 92 L 92 L Oximetry (%) Intake & Output 10/25/16 10/26/16 10/26/16 23:59 07:59 15:59 Intake Total 220 505 Output Total 1200 1800 Balance -980 -1295 Weight 83.5 kg Intake: IV 40 35 Diprivan - 100 ml @ 5 MCG 40 35 /KG/MIN 2.424 mls/hr IVPB TITR [facility] Rx#:[id number] IVPB 100 150 Tube Feeding 30 270 Tube Irrigant 50 50 Output: Urine 1200 1800 Palacio 1200 1800 Other: Voiding Method Indwelling Catheter Indwelling Catheter Weight Measurement Method Built in [facility] Active Medications Acetaminophen (Tylenol Suppository -) 650 mg [place] Q6H PRN PRN Reason: FEVER OR PAIN Last Admin: 10/21/16 16:53 Dose: 650 mg Aspirin (Asa -) 81 mg PO DAILY [facility] Last Admin: 10/26/16 09:38 Dose: 81 mg Atorvastatin Calcium (Lipitor -) 40 mg PO HS [facility] Last Admin: 10/25/16 22:46 Dose: 40 mg Chlorhexidine Gluconate (Hibiclens For Decolonization -) 1 applic TP HS [facility] Last Admin: 10/25/16 22:47 Dose: 1 applic Chlorhexidine Gluconate (Peridex -) 15 ml MM BID [facility] Last Admin: 10/26/16 09:38 Dose: 15 ml Heparin Sodium (Porcine) (Heparin -) 5,000 unit SQ TID [facility] Last Admin: 10/26/16 05:35 Dose: 5,000 unit Pantoprazole Sodium (Protonix 40mg Ivpb (Pre-Docked)) 100 mls @ 200 mls/hr IVPB DAILY [facility] Last Admin: 10/25/16 09:23 Dose: 200 mls/hr Propofol (Diprivan -) 100 mls @ 2.424 mls/hr IVPB TITR [facility]; 5 MCG/KG/MIN PRN Reason: Protocol Last Titration: 10/26/16 07:50 Dose: 0 mcg/kg/min Imipenem/Cilastatin Sodium 500 (mg/ Sodium Chloride) 100 mls @ 100 mls/hr IVPB Q6H-IV [facility] PRN Reason: Protocol Last Admin: 10/26/16 09:38 Dose: 100 mls/hr Insulin Aspart (Novolog Vial Sliding Scale -) 1 vial SQ Q6HPO [facility] PRN Reason: Protocol Last Admin: 10/26/16 06:18 Dose: 6 units Insulin Detemir (Levemir Vial) 10 units SQ BIDI [facility] Last Admin: 10/26/16 06:18 Dose: 10 units Metoprolol Tartrate (Lopressor Injection -) 5 mg IVPUSH Q6H PRN PRN Reason: HYPERTENSION Metoprolol Tartrate (Lopressor -) 25 mg PO TID [facility] Last Admin: 10/26/16 05:35 Dose: 25 mg CBC, BMP 10/26/16 05:10 10/26/16 05:10 Laboratory Results - last 24 hr 10/25/16 10/25/16 10/26/16 11:08 16:55 05:10 WBC 22.2 H D RBC 4.21 Hgb 11.5 L Hct 35.4 MCV 84.1 MCHC 32.5 RDW 14.3 Plt Count 375 MPV 9.6 Neutrophils % 86.0 H Lymphocytes % 7.0 L D Monocytes % 6.0 Band Neutrophils 1.0 D Differential Comment Manual diff done Platelet Estimate Adequate Puncture Site ABG pH ABG pCO2 at Pt Temp ABG pO2 at Pt Temp ABG HCO3 ABG O2 Sat (Measured) ABG O2 Content ABG Base Excess Alexandro Test O2 Delivery Device Oxygen Flow Rate Vent Mode Vent Rate Mechanical Rate PEEP Pressure Support Vent Sodium Potassium Chloride Carbon Dioxide Anion Gap BUN Creatinine POC Glucometer 161.17235 209.60759 Random Glucose Calcium Phosphorus Magnesium 10/26/16 10/26/16 05:10 07:20 WBC RBC Hgb Hct MCV MCHC RDW Plt Count MPV Neutrophils % Lymphocytes % Monocytes % Band Neutrophils Differential Comment Platelet Estimate Puncture Site Right radial ABG pH 7.46 H ABG pCO2 at Pt Temp 36.5 ABG pO2 at Pt Temp 63.2 L ABG HCO3 25.4 ABG O2 Sat (Measured) 92.1 ABG O2 Content 16.9 ABG Base Excess 2.1 H Alexandro Test Positive O2 Delivery Device Ventilator Oxygen Flow Rate 40% Vent Mode A/c Vent Rate 12 Mechanical Rate Yes PEEP 5.0 Pressure Support Vent 500 Sodium 137 Potassium 4.4 Chloride 100 Carbon Dioxide 27 Anion Gap 10 BUN 20 H Creatinine 0.6 L POC Glucometer Random Glucose 203 H Calcium 7.7 L Phosphorus 2.9 Magnesium 1.7 L Microbiology 10/21/16 09:50 Blood Culture - Final Blood - Peripheral Venous NO GROWTH AFTER 5 DAYS INCUBATION 10/21/16 08:40 Blood Culture - Final Blood - Peripheral Venous NO GROWTH AFTER 5 DAYS INCUBATION PHYSICAL EXAMINATION: Constitutional: Yes: No Distress, S/p trach. Cardiovascular: Yes: Regular Rate and Rhythm, Tachycardia Respiratory: Yes: Diminished Gastrointestinal: Yes: Normal Bowel Sounds, Soft, Abdomen, Obese. No: Distention, Tenderness S/P PEG tube. Edema: Yes ASSESSMENT & PLAN: - Clinically stable. - Continue antibiotics. - WBCs remains elevated. - Follow up labs. - CT of chest and pelvis for a source for leukocytosis. - Will follow. Documentation prepared by Rowan Funes, acting as a medical secretary for Regina Jones MD. <Rowan Funes - Last Filed: 10/26/16 10:05> Problem List - Problems (1) Acute respiratory failure with hypoxia Code(s): J96.01 - ACUTE RESPIRATORY FAILURE WITH HYPOXIA (2) Cerebrovascular disease Code(s): I67.9 - CEREBROVASCULAR DISEASE, UNSPECIFIED (3) Cerebrovascular small vessel disease Code(s): I67.9 - CEREBROVASCULAR DISEASE, UNSPECIFIED (4) Healthcare-associated pneumonia Code(s): J18.9 - PNEUMONIA, UNSPECIFIED ORGANISM (5) Sepsis Code(s): A41.9 - SEPSIS, UNSPECIFIED ORGANISM Qualifiers: Sepsis type: sepsis due to unspecified organism Qualified Code(s): A41.9 - Sepsis, unspecified organism (6) Alzheimer disease Code(s): G30.9 - ALZHEIMER'S DISEASE, UNSPECIFIED Qualifiers: Alzheimer's disease onset: early-onset Dementia behavioral disturbance : without behavioral disturbance Qualified Code(s): G30.0 - Alzheimer's disease with early onset; F02.81 - Dementia in other diseases classified elsewhere with behavioral disturbance (7) Lactic acid blood increased Code(s): R79.89 - OTHER SPECIFIED ABNORMAL FINDINGS OF BLOOD CHEMISTRY <Regina Jones - Last Filed: 10/26/16 08:35>
[2016-10-26 08:37] LABS: PLATELET ESTIMATE ADEQUATE (NORMAL)
[2016-10-26] MEDS ORDERED: PT OWN MED DRAWER 7, Y5N ONE ×3 (09:29→20:53)
[2016-10-26] MEDS: ASPIRIN 81 MG CHEWABLE TABLETS PO SCH (09:38)
[2016-10-26] MEDS: CHLORHEXIDINE GLUCONATE 0.12% 15ML CUP MM SCH ×2 (09:38→21:18)
--- NOTE | 2016-10-26 10:34 | PN ---
Progress Note (short form) - Note Progress Note: seen and examined. no major event o/n. intubated/sedated on vent supp. afeb. rrr. b/l rhonchi. s/p trach. small trach leak secondary to position. dsg : c/d/i. +bs, soft, nd, s/p peg. no c/c/e. CBC, BMP 10/26/16 05:10 10/26/16 05:10 Vital Signs (72 hours) 10/23/16 10/23/16 10/23/16 12:00 12:04 14:00 Temperature 98.3 F Pulse Rate 95 H 96 H Respiratory 27 H 19 26 H Rate Blood Pressure 155/80 163/82 O2 Sat by Pulse Oximetry (%) 10/23/16 10/23/16 10/23/16 14:15 16:00 16:07 Temperature Pulse Rate 80 Respiratory 24 23 Rate Blood Pressure 136/68 O2 Sat by Pulse 94 L Oximetry (%) 10/23/16 10/23/16 10/23/16 16:15 18:00 19:04 Temperature 99.6 F Pulse Rate 83 Respiratory 26 H 21 22 Rate Blood Pressure 166/87 O2 Sat by Pulse Oximetry (%) 10/23/16 10/23/16 10/23/16 20:00 21:00 22:00 Temperature 99.6 F Pulse Rate 79 Respiratory 25 H 23 22 Rate Blood Pressure 157/78 O2 Sat by Pulse 94 L 94 L Oximetry (%) 10/23/16 10/24/16 10/24/16 22:57 00:00 00:32 Temperature Pulse Rate 89 72 Respiratory 20 21 Rate Blood Pressure 124/60 O2 Sat by Pulse 94 L Oximetry (%) 10/24/16 10/24/16 10/24/16 02:00 02:58 04:00 Temperature 99.3 F Pulse Rate 74 76 Respiratory 23 22 22 Rate Blood Pressure 105/56 128/66 O2 Sat by Pulse Oximetry (%) 10/24/16 10/24/16 10/24/16 05:05 06:00 07:20 Temperature 99.4 F Pulse Rate 79 Respiratory 26 H 22 19 Rate Blood Pressure 135/72 O2 Sat by Pulse Oximetry (%) 10/24/16 10/24/16 10/24/16 08:00 09:00 09:55 Temperature Pulse Rate 76 74 Respiratory 14 23 22 Rate Blood Pressure 132/63 O2 Sat by Pulse 94 L 97 Oximetry (%) 10/24/16 10/24/16 10/24/16 10:00 10:20 12:00 Temperature 98.5 F Pulse Rate 76 78 Respiratory 30 H 49 H 26 H Rate Blood Pressure 148/68 142/64 O2 Sat by Pulse 97 97 Oximetry (%) 10/24/16 10/24/16 10/24/16 12:15 14:00 14:35 Temperature Pulse Rate 79 Respiratory 23 30 H 25 H Rate Blood Pressure 160/77 O2 Sat by Pulse Oximetry (%) 10/24/16 10/24/16 10/24/16 16:00 16:37 18:00 Temperature 98.9 F Pulse Rate 80 88 Respiratory 26 H 24 28 H Rate Blood Pressure 160/77 129/70 O2 Sat by Pulse Oximetry (%) 10/24/16 10/24/16 10/24/16 18:42 20:00 20:30 Temperature 98.7 F Pulse Rate 82 Respiratory 23 27 H 27 H Rate Blood Pressure 109/53 O2 Sat by Pulse Oximetry (%) 10/24/16 10/24/16 10/25/16 21:20 22:00 00:00 Temperature Pulse Rate 86 89 Respiratory 26 H 22 21 Rate Blood Pressure 137/72 135/65 O2 Sat by Pulse 93 L Oximetry (%) 10/25/16 10/25/16 10/25/16 00:20 02:00 03:21 Temperature 99.4 F Pulse Rate 90 Respiratory 25 H 23 29 H Rate Blood Pressure 133/67 O2 Sat by Pulse Oximetry (%) 10/25/16 10/25/16 10/25/16 04:00 06:00 06:36 Temperature Pulse Rate 92 H 82 Respiratory 24 24 25 H Rate Blood Pressure 147/73 149/73 O2 Sat by Pulse Oximetry (%) 10/25/16 10/25/16 10/25/16 07:41 08:00 08:12 Temperature Pulse Rate 87 Respiratory 25 H 29 H 25 H Rate Blood Pressure 144/69 O2 Sat by Pulse 93 L Oximetry (%) 10/25/16 10/25/16 10/25/16 09:36 09:52 10:00 Temperature 99.2 F Pulse Rate 88 Respiratory 57 H 29 H 28 H Rate Blood Pressure 147/93 O2 Sat by Pulse 93 L Oximetry (%) 10/25/16 10/25/16 10/25/16 11:06 12:00 13:43 Temperature Pulse Rate 86 Respiratory 25 H 28 H 24 Rate Blood Pressure 100/55 O2 Sat by Pulse Oximetry (%) 10/25/16 10/25/16 10/25/16 14:00 15:53 16:00 Temperature 99 F Pulse Rate 88 116 H Respiratory 28 H 23 26 H Rate Blood Pressure 130/74 125/65 O2 Sat by Pulse Oximetry (%) 10/25/16 10/25/16 10/25/16 18:00 20:00 20:13 Temperature 99 F Pulse Rate 107 H 113 H Respiratory 23 21 21 Rate Blood Pressure 138/72 137/74 O2 Sat by Pulse Oximetry (%) 10/25/16 10/25/16 10/25/16 21:14 21:16 21:17 Temperature Pulse Rate Respiratory 25 H 25 H Rate Blood Pressure O2 Sat by Pulse 97 97 Oximetry (%) 10/25/16 10/25/16 10/26/16 22:00 23:57 00:00 Temperature Pulse Rate 105 H 85 Respiratory 26 H 22 22 Rate Blood Pressure 149/72 126/66 O2 Sat by Pulse Oximetry (%) 10/26/16 10/26/16 10/26/16 02:00 03:23 04:00 Temperature 99.3 F Pulse Rate 93 H 92 H Respiratory 24 25 H 23 Rate Blood Pressure 145/67 149/67 O2 Sat by Pulse Oximetry (%) 10/26/16 10/26/16 10/26/16 06:00 06:13 08:00 Temperature 99.2 F Pulse Rate 81 91 H Respiratory 18 22 26 H Rate Blood Pressure 141/60 146/66 O2 Sat by Pulse Oximetry (%) 10/26/16 10/26/16 10/26/16 08:46 09:06 09:21 Temperature Pulse Rate Respiratory 26 H 27 H Rate Blood Pressure O2 Sat by Pulse 92 L 92 L 92 L Oximetry (%) 10/26/16 10/26/16 10:00 10:25 Temperature Pulse Rate 113 H 106 H Respiratory 38 H 26 H Rate Blood Pressure 171/84 154/73 O2 Sat by Pulse Oximetry (%) a/p 86 yo, resp failure, inanition, s/p trach and peg. fixed positional trach cuff leak at the bedside. clinically stable. 1. cont icu supp care 2. abx per id 3. wean vent as ceci 4. d/w icu staff and nurse regarding trach care 5. will follow Problem List - Problems (1) Acute respiratory failure with hypoxia Code(s): J96.01 - ACUTE RESPIRATORY FAILURE WITH HYPOXIA
[2016-10-26] MEDS: PANTOPRAZOLE SODIUM 100 ML IVPB SCH (10:46)
--- NOTE | 2016-10-26 11:52 | PN ---
Teaching Attending Note Name of Resident: Madeline Mayo ATTENDING PHYSICIAN STATEMENT I saw and evaluated the patient. I reviewed the resident's note and discussed the case with the resident. I agree with the resident's findings and plan as documented. SUBJECTIVE: Patient seen and examined in the ICU. s/p bedside tracheostomy / PEG placement yesterday. According the RN (?) leak heard. Seen by CTS -> likely positional. OBJECTIVE: Intake & Output 10/23/16 10/24/16 10/25/16 10/26/16 23:59 23:59 23:59 23:59 Intake Total 4986 4779 979 785 Output Total 1500 1550 1800 1800 Balance 3486 3229 -821 -1015 Weight 189 lb 9.561 oz 185 lb 10.067 oz 184 lb 15.485 oz 184 lb 1.376 oz Last Vital Signs Temp Pulse Resp BP Pulse Ox 99.5 F 101 H 26 H 154/73 92 L 10/26/16 10:00 10/26/16 10:40 10/26/16 10:25 10/26/16 10:25 10/26/16 10:40 Active Medications Acetaminophen (Tylenol Suppository -) 650 mg NM Q6H PRN PRN Reason: FEVER OR PAIN Last Admin: 10/21/16 16:53 Dose: 650 mg Aspirin (Asa -) 81 mg PO DAILY [facility] Last Admin: 10/26/16 09:38 Dose: 81 mg Atorvastatin Calcium (Lipitor -) 40 mg PO HS [facility] Last Admin: 10/25/16 22:46 Dose: 40 mg Chlorhexidine Gluconate (Hibiclens For Decolonization -) 1 applic TP HS [facility] Last Admin: 10/25/16 22:47 Dose: 1 applic Chlorhexidine Gluconate (Peridex -) 15 ml MM BID [facility] Last Admin: 10/26/16 09:38 Dose: 15 ml Heparin Sodium (Porcine) (Heparin -) 5,000 unit SQ TID [facility] Last Admin: 10/26/16 05:35 Dose: 5,000 unit Pantoprazole Sodium (Protonix 40mg Ivpb (Pre-Docked)) 100 mls @ 200 mls/hr IVPB DAILY [facility] Last Admin: 10/26/16 10:46 Dose: 200 mls/hr Propofol (Diprivan -) 100 mls @ 2.424 mls/hr IVPB TITR [facility]; 5 MCG/KG/MIN PRN Reason: Protocol Last Titration: 10/26/16 07:50 Dose: 0 mcg/kg/min Imipenem/Cilastatin Sodium 500 (mg/ Sodium Chloride) 100 mls @ 100 mls/hr IVPB Q6H-IV [facility] PRN Reason: Protocol Last Admin: 10/26/16 09:38 Dose: 100 mls/hr Insulin Aspart (Novolog Vial Sliding Scale -) 1 vial SQ Q6HPO [facility] PRN Reason: Protocol Last Admin: 10/26/16 06:18 Dose: 6 units Insulin Detemir (Levemir Vial) 10 units SQ BIDI [facility] Last Admin: 10/26/16 06:18 Dose: 10 units Metoprolol Tartrate (Lopressor Injection -) 5 mg IVPUSH Q6H PRN PRN Reason: HYPERTENSION Metoprolol Tartrate (Lopressor -) 25 mg PO TID [facility] Last Admin: 10/26/16 05:35 Dose: 25 mg Gen: trached, poorly responsive Heart: RRR Lung: scattered rhonchi Abd: soft, nontender Ext: + edema Laboratory Results - last 24 hr 10/25/16 10/25/16 10/26/16 16:55 21:54 05:10 WBC 22.2 H D RBC 4.21 Hgb 11.5 L Hct 35.4 MCV 84.1 MCHC 32.5 RDW 14.3 Plt Count 375 MPV 9.6 Neutrophils % 86.0 H Lymphocytes % 7.0 L D Monocytes % 6.0 Band Neutrophils 1.0 D Differential Comment Manual diff done Platelet Estimate Adequate Puncture Site ABG pH ABG pCO2 at Pt Temp ABG pO2 at Pt Temp ABG HCO3 ABG O2 Sat (Measured) ABG O2 Content ABG Base Excess Alexandro Test O2 Delivery Device Oxygen Flow Rate Vent Mode Vent Rate Mechanical Rate PEEP Pressure Support Vent Sodium Potassium Chloride Carbon Dioxide Anion Gap BUN Creatinine POC Glucometer 209.41190 209.04563 Random Glucose Calcium Phosphorus Magnesium 10/26/16 10/26/16 05:10 07:20 WBC RBC Hgb Hct MCV MCHC RDW Plt Count MPV Neutrophils % Lymphocytes % Monocytes % Band Neutrophils Differential Comment Platelet Estimate Puncture Site Right radial ABG pH 7.46 H ABG pCO2 at Pt Temp 36.5 ABG pO2 at Pt Temp 63.2 L ABG HCO3 25.4 ABG O2 Sat (Measured) 92.1 ABG O2 Content 16.9 ABG Base Excess 2.1 H Alexandro Test Positive O2 Delivery Device Ventilator Oxygen Flow Rate 40% Vent Mode A/c Vent Rate 12 Mechanical Rate Yes PEEP 5.0 Pressure Support Vent 500 Sodium 137 Potassium 4.4 Chloride 100 Carbon Dioxide 27 Anion Gap 10 BUN 20 H Creatinine 0.6 L POC Glucometer Random Glucose 203 H Calcium 7.7 L Phosphorus 2.9 Magnesium 1.7 L ASSESSMENT AND PLAN: Acute Hypoxic Respiratory Failure Pneumonia Recent Influenza Severe Sepsis Acute Kidney Injury improving Lactic Acidosis resolved +Troponins - ?Demand Ischemia from Sepsis LV Systolic Heart Failure HTN CAD DM Dementia - continue antibiotics per ID - Daily assessment for lasix - ASA, beta regina - taper Fio2 to keep Spo2 >90% - minimize sedation to assess mental status - spontaneous breathing trials as tolerated - DVT/GI prophylaxis - Eneteral feeds - Vent Unit Critical care time spent in reviewing chart, evaluating patient, and formulating plan : [address] Pruett
--- NOTE | 2016-10-26 12:09 | PN ---
Physical Exam: SUBJECTIVE: Patient seen and examined at bed side in ICU. febrile over night, s/p bedside tracheostomy / PEG placement yesterday. per over night nurse questionable leak, no current leak on Vent monitor. lightly sedated and intubated, responsive to verbal and tachtile stimuli, opens eyes. For CT today OBJECTIVE: Vital Signs Period Temp Pulse Resp BP Sys/Machado Pulse Ox Last 24 Hr 99 F-99.5 F 81-116 18-38 125-171/60-84 92-97 GENERAL: Intubated and sedated. responsive to verbal and tachtile stimuli, In no acute distress, minimally responsive to tactile stimuli, nonverbal HEAD: Normal with no signs of trauma. EYES: pin point pupils, no sclera anicteric, conjunctiva clear. EARS, NOSE, THROAT: Ears normal, nares patent, oropharynx clear without exudates. Moist mucous membranes. NECK: Normal range of motion, supple without lymphadenopathy, JVD, or masses. tracheostomy in place LUNGS: distant breath sounds, + crackles, No wheezes, and no crackles. No accessory muscle use. HEART: distant heart sounds no murmurs appreciated. ABDOMEN: Soft, nontender, not distended, normoactive bowel sounds, no guarding, no rebound, no masses. Peg tube in place MUSCULOSKELETAL: moves right upper ext, retracts R>L lower ext to pain, not move Left upper LOWER EXTREMITIES: 2+ pulses, warm, well-perfused. No calf tenderness. trace peripheral edema. PSYCHIATRIC: intubated sedated SKIN: Warm, dry, normal turgor, no rashes or lesions noted. Laboratory Results - last 24 hr 10/25/16 10/25/16 10/26/16 16:55 21:54 05:10 WBC 22.2 H D RBC 4.21 Hgb 11.5 L Hct 35.4 MCV 84.1 MCHC 32.5 RDW 14.3 Plt Count 375 MPV 9.6 Neutrophils % 86.0 H Lymphocytes % 7.0 L D Monocytes % 6.0 Band Neutrophils 1.0 D Differential Comment Manual diff done Platelet Estimate Adequate Puncture Site ABG pH ABG pCO2 at Pt Temp ABG pO2 at Pt Temp ABG HCO3 ABG O2 Sat (Measured) ABG O2 Content ABG Base Excess Alexandro Test O2 Delivery Device Oxygen Flow Rate Vent Mode Vent Rate Mechanical Rate PEEP Pressure Support Vent Sodium Potassium Chloride Carbon Dioxide Anion Gap BUN Creatinine POC Glucometer 209.06649 209.69076 Random Glucose Calcium Phosphorus Magnesium 10/26/16 10/26/16 05:10 07:20 WBC RBC Hgb Hct MCV MCHC RDW Plt Count MPV Neutrophils % Lymphocytes % Monocytes % Band Neutrophils Differential Comment Platelet Estimate Puncture Site Right radial ABG pH 7.46 H ABG pCO2 at Pt Temp 36.5 ABG pO2 at Pt Temp 63.2 L ABG HCO3 25.4 ABG O2 Sat (Measured) 92.1 ABG O2 Content 16.9 ABG Base Excess 2.1 H Alexandro Test Positive O2 Delivery Device Ventilator Oxygen Flow Rate 40% Vent Mode A/c Vent Rate 12 Mechanical Rate Yes PEEP 5.0 Pressure Support Vent 500 Sodium 137 Potassium 4.4 Chloride 100 Carbon Dioxide 27 Anion Gap 10 BUN 20 H Creatinine 0.6 L POC Glucometer Random Glucose 203 H Calcium 7.7 L Phosphorus 2.9 Magnesium 1.7 L Active Medications Generic Name Dose Route Start Last Admin Trade Name Freq PRN Reason Stop Dose Admin Acetaminophen 650 mg 10/15/16 16:23 10/21/16 16:53 Tylenol Suppository - [place] 650 mg Q6H PRN Administration FEVER OR PAIN Aspirin 81 mg 10/22/16 12:00 10/26/16 09:38 Asa - PO 81 mg DAILY [facility] Administration Atorvastatin Calcium 40 mg 10/20/16 22:00 10/25/16 22:46 Lipitor - PO 40 mg HS [facility] Administration Chlorhexidine Gluconate 1 applic 10/15/16 22:00 10/25/16 22:47 Hibiclens For Decolonization - TP 1 applic HS [facility] Administration Chlorhexidine Gluconate 15 ml 10/17/16 22:00 10/26/16 09:38 Peridex - MM 15 ml BID [facility] Administration Heparin Sodium (Porcine) 5,000 unit 10/25/16 22:00 10/26/16 05:35 Heparin - SQ 5,000 unit TID [facility] Administration Pantoprazole Sodium 100 mls @ 200 mls/hr 10/15/16 15:15 10/26/16 10:46 Protonix 40mg Ivpb (Pre-Docked) IVPB 200 mls/hr DAILY [facility] Administration Propofol 100 mls @ 2.424 mls/hr 10/19/16 23:30 04/21/17 10:00 Diprivan - IVPB 35 mcg/kg/min TITR [facility] Titration Protocol 5 MCG/KG/MIN Imipenem/Cilastatin Sodium 500 100 mls @ 100 mls/hr 10/21/16 09:00 10/26/16 09: 38 mg/ Sodium Chloride IVPB 100 mls/hr Q6H-IV [facility] Administration Protocol Insulin Aspart 1 vial 10/19/16 00:00 10/26/16 06:18 Novolog Vial Sliding Scale - SQ 6 units Q6HPO [facility] Administration Protocol Insulin Detemir 10 units 10/19/16 07:00 10/26/16 06:18 Levemir Vial SQ 10 units BIDI [facility] Administration Magnesium Sulfate 2 gm 10/26/16 12:30 Magnesium Sulfate IVPB 10/26/16 12:31 ONCE ONE Metoprolol Tartrate 5 mg 10/25/16 13:31 Lopressor Injection - IVPUSH Q6H PRN HYPERTENSION Metoprolol Tartrate 25 mg 10/25/16 22:00 10/26/16 05:35 Lopressor - PO 25 mg TID [facility] Administration ASSESSMENT/PLAN: 86 year old male from [facility] with PMH of HTN, HLD, CAD s/p bare metal stent, afib, L atrial lipoma, latent TB, Alzheimer's dementia and DM who was recently discharged for Influenza A and treated with Tamiflu 10/11/16 who presents to the ER via EMS for worsening dypsnea and confusion. Sever sepsis 2/2 HCAP, inc WBC, Febrile 101, chest chest xray inc bibaselir changes. PCN allergy noted, restart antibiotics last day Vanco,will cont Imipenem 8 day course mao cultures ordered today Acute hypoxic respiratory failure- Acute (uncompensated) primary respiratory alkalosis, with metabolic alkalosis CXR read with b/l lower lobe infiltrate, PNA vs pulmonary edema vs aspiration pneumonia Patient currently mechanically ventilated - patient difficult to to ween, start spontaneous breathing trials as tolerated when mental status improves minimize sedation to assess mental status Taper FI O2, keep O2 >90% ABG in AM DKA resolved Troponins - Demand Ischemia 2/2 Sepsis echo here with severe dec lvef- trend troponins, echo shows EF of 29.6%, left ventricular systolic function severely reduced. Left atrium borderline dilated. RV mildly dilated. RV size moderately reduced. None acute wall NC stemi Dementia is relative contraindication to thrombolysis cont metoprolol 12.5 and will watch for hypotension cont statin, beta blockers, and ASA will hold, asa, heparin, for after the procedure JULIET, improving prerenal azotemia 2/2 sepsis monitor urine output and creatinine free water feeds Dementia As per medical records, baseline verbal and AOx1 currently cannot assess, sedated and intubated minimize sedation to assess mental status HTN as per cardiac, Lopressor given if BP <120/80, hold antihypertensives Hypernatremea continue free water NGT FEN tube feed. free water per NG tube replete electrolytes as needed, keep mag >2.0, replete phosphorus will start tomorrow, DVT prophylaxis on heparin 5,000 units SQ TID GI prophylaxis - protonix Dispo: can transfer to [address] [place] [address] type - Emergency Visit Emergency Visit: Yes ED Registration Date: 10/15/16 Care time: The patient presented to the Emergency Department on the above date and was hospitalized for further evaluation of their emergent condition. - New Patient This patient is new to me today: No - Critical Care Critical Care patient: Yes Total Critical Care Time (in minutes): 41 Critical Care Statement: The care of this patient involved high complexity decision making to prevent further life threatening deterioration of the patient 's condition and/or to evalute & treat vital organ system(s) failure or risk of failure.
[2016-10-26] MEDS: ACETAMINOPHEN 650 MG SUPP.RECT PR PRN ×2 (12:20→18:07)
[2016-10-26] MEDS ORDERED: MAGNESIUM SULF 50% (8.12 MEQ/2 ML-1 GM VIAL) IVPB ONE (12:30)
[2016-10-26] MEDS ORDERED: METOPROLOL TARTRATE 5 MG/5 ML VIAL IVPUSH PRN (19:53)
[2016-10-26] MEDS ORDERED: ACETAMINOPHEN 650 MG SUPP.RECT PR PRN (19:53)
[2016-10-26] MEDS: CHLORHEXIDINE GLUCONATE 4% CLEANSER FOR DECOLONIZATION TP SCH (21:18)
[2016-10-26] MEDS: ATORVASTATIN CA 40 MG TABLET (FP) PO SCH (21:18)
[2016-10-27] MEDS: INSULIN SLIDING SCALE (NOVOLOG) 1 VIAL SQ SCH ×5 (00:35→23:40)
[2016-10-27] MEDS ORDERED: PT OWN MED DRAWER 7, Y5N ONE ×3 (03:35→20:18)
[2016-10-27] MEDS: IMIPENEM/CILASTATIN SODIUM 500 MG in SODIUM CHLORIDE 100 ML IVPB SCH ×4 (03:38→20:29)
[2016-10-27] MEDS ORDERED: PROPOFOL 100 ML ONE ×2 (03:43→21:18)
[2016-10-27] MEDS: METOPROLOL TARTRATE 25 MG TABLET (FP) PO SCH ×3 (06:12→21:46)
[2016-10-27] MEDS: HEPARIN NA (PORCINE) 5,000 UNITS/ML 1ML VIAL SQ SCH ×3 (06:12→21:46)
[2016-10-27] MEDS: INSULIN DETEMIR 100 UNITS/ML MDV SQ SCH ×2 (06:25→17:50)
[2016-10-27 07:41] LABS: ARTERIAL BLD GAS O2 SATURATION 85.8 % (90-98.9); ARTERIAL BLOOD GAS BASE EXCESS 4.7 meq/l (-2-2); ARTERIAL BLOOD GAS HCO3 27.4 meq/L (22-26); ARTERIAL BLOOD GAS pH 7.51 (7.35-7.45)
[2016-10-27 07:42] LABS: ALLENS TEST POSITIVE; ART PUNCT SITE LEFT RADIAL; LPM/O2% 60%; MECH. VENT. YES; PT. ON O2? YES; TYPE OF O2 VENT; VENT RATE 12; VT/PRESS 500
[2016-10-27 07:43] LABS: ARTERIAL BLOOD GAS PO2 49.8 mmHg (68-100)
--- NOTE | 2016-10-27 09:22 | PN ---
Progress Note (short form) - Note Progress Note: PULM/CCM SUBJECTIVE: Patient seen and examined in the ICU. 24HR: intermittent desats with decreased sedation and occasional cuff leak, repositioned low grade temp but otherwise stable OBJECTIVE: Vital Signs Temp 100 F H 10/27/16 06:00 Pulse 98 H 10/27/16 08:00 Resp 28 H 10/27/16 08:00 BP 126/66 10/27/16 08:00 Pulse Ox 91 L 10/27/16 08:00 Intake & Output 10/26/16 10/26/16 10/27/16 11:59 23:59 11:59 Intake Total 785 930 742.8 Output Total 1800 600 300 Balance -1015 330 442.8 Weight 83.5 kg 84.4 kg Intake: IV 35 180 262.8 Diprivan - 100 ml @ 5 MCG 35 180 /KG/MIN 2.424 mls/hr IVPB TITR [facility] Rx#:[id number] Diprivan - 100 ml @ 5 MCG 262.8 /KG/MIN 2.424 mls/hr IVPB TITR [facility] Rx#:[id number] IVPB 370 220 200 Tube Feeding 330 270 120 Tube Irrigant 50 260 160 Output: Urine 1800 600 300 Palacio 1800 600 300 Other: Voiding Method Indwelling Catheter Indwelling Catheter Bowel Movement Yes No # Bowel Movements 1 Weight Measurement Method Built in [facility] Active Medications Acetaminophen (Tylenol Suppository -) 650 mg MT Q6H PRN PRN Reason: FEVER OR PAIN Aspirin (Asa -) 81 mg PO DAILY [facility] Atorvastatin Calcium (Lipitor -) 40 mg PO HS [facility] Last Admin: 10/26/16 21:18 Dose: 40 mg Chlorhexidine Gluconate (Peridex -) 15 ml MM BID [facility] Last Admin: 10/26/16 21:18 Dose: 15 ml Chlorhexidine Gluconate (Hibiclens For Decolonization -) 1 applic TP HS [facility] Last Admin: 10/26/16 21:18 Dose: 1 applic Heparin Sodium (Porcine) (Heparin -) 5,000 unit SQ TID [facility] Last Admin: 10/27/16 06:12 Dose: 5,000 unit Imipenem/Cilastatin Sodium 500 (mg/ Sodium Chloride) 100 mls @ 100 mls/hr IVPB Q6H-IV [facility] PRN Reason: Protocol Last Admin: 10/27/16 09:17 Dose: 100 mls/hr Pantoprazole Sodium (Protonix 40mg Ivpb (Pre-Docked)) 100 mls @ 200 mls/hr IVPB DAILY [facility] Propofol (Diprivan -) 100 mls @ 2.424 mls/hr IVPB TITR [facility]; 5 MCG/KG/MIN PRN Reason: Protocol Last Admin: 10/26/16 19:00 Dose: 21.816 mls/hr Insulin Aspart (Novolog Vial Sliding Scale -) 1 vial SQ Q6HPO [facility] PRN Reason: Protocol Last Admin: 10/27/16 06:25 Dose: Not Given Insulin Detemir (Levemir Vial) 10 units SQ BIDI [facility] Last Admin: 10/27/16 06:25 Dose: 10 units Metoprolol Tartrate (Lopressor -) 25 mg PO TID [facility] Last Admin: 10/27/16 06:12 Dose: 25 mg Metoprolol Tartrate (Lopressor Injection -) 5 mg IVPUSH Q6H PRN PRN Reason: HYPERTENSION Gen: trached, poorly responsive Heart: RRR Lung: scattered rhonchi Abd: soft, nontender Ext: + edema CXR: pulm vasc congestion, basilar atelectesis, trach in satisfactory position ASSESSMENT AND PLAN: Acute Hypoxic Respiratory Failure Pneumonia Recent Influenza Severe Sepsis Acute Kidney Injury improving Lactic Acidosis resolved +Troponins - ?Demand Ischemia from Sepsis LV Systolic Heart Failure HTN CAD DM Dementia - continue antibiotics per ID - Daily assessment for lasix, goal negative fluid balance as tolerated - ASA, beta regina - taper Fio2 to keep Spo2 >90% - minimize sedation to assess mental status, will stop propofol and switch to PRN to expedite move to vent unit - vent wean - DVT/GI prophylaxis - Eneteral feeds - Ok for Vent Unit once off gtt sedation Critical care time spent in reviewing chart, evaluating patient, and formulating plan : 35 min Zack Cooney [facility] 2040 Problem List - Problems (1) Acute respiratory failure with hypoxia Code(s): J96.01 - ACUTE RESPIRATORY FAILURE WITH HYPOXIA (2) Encephalopathy acute Code(s): G93.40 - ENCEPHALOPATHY, UNSPECIFIED (3) Healthcare-associated pneumonia Code(s): J18.9 - PNEUMONIA, UNSPECIFIED ORGANISM (4) Septic shock Code(s): A41.9 - SEPSIS, UNSPECIFIED ORGANISM R65.21 - SEVERE SEPSIS WITH SEPTIC SHOCK
--- NOTE | 2016-10-27 09:55 | PN ---
Progress Note (short form) - Note Progress Note: pt seen/ examined in icu sedated low grade temp all f/u noted occasional trach leak Vital Signs Temp 98.5 F 10/27/16 09:50 Pulse 97 H 10/27/16 09:50 Resp 27 H 10/27/16 09:50 BP 126/66 10/27/16 09:50 Pulse Ox 91 L 10/27/16 08:00 Intake & Output 10/26/16 10/26/16 10/27/16 11:59 23:59 11:59 Intake Total 785 930 742.8 Output Total 1800 600 300 Balance -1015 330 442.8 Weight 184 lb 1.376 oz 186 lb 1.122 oz Intake: IV 35 180 262.8 Diprivan - 100 ml @ 5 MCG 35 180 /KG/MIN 2.424 mls/hr IVPB TITR [facility] Rx#:[id number] Diprivan - 100 ml @ 5 MCG 262.8 /KG/MIN 2.424 mls/hr IVPB TITR [facility] Rx#:[id number] IVPB 370 220 200 Tube Feeding 330 270 120 Tube Irrigant 50 260 160 Output: Urine 1800 600 300 Palacio 1800 600 300 Other: Voiding Method Indwelling Catheter Indwelling Catheter Bowel Movement Yes No # Bowel Movements 1 Weight Measurement Method Built in [facility] Active Medications Acetaminophen (Tylenol Suppository -) 650 mg [place] Q6H PRN PRN Reason: FEVER OR PAIN Aspirin (Asa -) 81 mg PO DAILY [facility] Atorvastatin Calcium (Lipitor -) 40 mg PO HS [facility] Last Admin: 10/26/16 21:18 Dose: 40 mg Chlorhexidine Gluconate (Peridex -) 15 ml MM BID [facility] Last Admin: 10/26/16 21:18 Dose: 15 ml Chlorhexidine Gluconate (Hibiclens For Decolonization -) 1 applic TP HS [facility] Last Admin: 10/26/16 21:18 Dose: 1 applic Heparin Sodium (Porcine) (Heparin -) 5,000 unit SQ TID [facility] Last Admin: 10/27/16 06:12 Dose: 5,000 unit Imipenem/Cilastatin Sodium 500 (mg/ Sodium Chloride) 100 mls @ 100 mls/hr IVPB Q6H-IV [facility] PRN Reason: Protocol Last Admin: 10/27/16 09:17 Dose: 100 mls/hr Pantoprazole Sodium (Protonix 40mg Ivpb (Pre-Docked)) 100 mls @ 200 mls/hr IVPB DAILY [facility] Propofol (Diprivan -) 100 mls @ 2.424 mls/hr IVPB TITR [facility]; 5 MCG/KG/MIN PRN Reason: Protocol Last Admin: 10/26/16 19:00 Dose: 21.816 mls/hr Insulin Aspart (Novolog Vial Sliding Scale -) 1 vial SQ Q6HPO [facility] PRN Reason: Protocol Last Admin: 10/27/16 06:25 Dose: Not Given Insulin Detemir (Levemir Vial) 10 units SQ BIDI [facility] Last Admin: 10/27/16 06:25 Dose: 10 units Metoprolol Tartrate (Lopressor -) 25 mg PO TID [facility] Last Admin: 10/27/16 06:12 Dose: 25 mg Metoprolol Tartrate (Lopressor Injection -) 5 mg IVPUSH Q6H PRN PRN Reason: HYPERTENSION LAbs -- Pending Ct Abd/ Chest-- LLL infiltrate Acute cholecystitis PHYSICAL EXAMINATION: Constitutional: Yes: S/p trach. sedated . Cardiovascular: Yes: Regular Rate and Rhythm Respiratory: Yes: Diminished Gastrointestinal: Yes: soft / s/p g tube ASSESSMENT & PLAN: - continue abx - taper off seadtion - weaning as tolerated - labs ordered -surgical consult - overall condition poor due to multiple comorbidities - discussed with i/d - Dr. Rodriguez also will follow. cc time - 30 min Problem List - Problems (1) Acute respiratory failure with hypoxia Code(s): J96.01 - ACUTE RESPIRATORY FAILURE WITH HYPOXIA (2) Cerebrovascular disease Code(s): I67.9 - CEREBROVASCULAR DISEASE, UNSPECIFIED (3) Cerebrovascular small vessel disease Code(s): I67.9 - CEREBROVASCULAR DISEASE, UNSPECIFIED (4) Healthcare-associated pneumonia Code(s): J18.9 - PNEUMONIA, UNSPECIFIED ORGANISM (5) Sepsis Code(s): A41.9 - SEPSIS, UNSPECIFIED ORGANISM Qualifiers: Sepsis type: sepsis due to unspecified organism Qualified Code(s): A41.9 - Sepsis, unspecified organism (6) Alzheimer disease Code(s): G30.9 - ALZHEIMER'S DISEASE, UNSPECIFIED Qualifiers: Alzheimer's disease onset: early-onset Dementia behavioral disturbance : without behavioral disturbance Qualified Code(s): G30.0 - Alzheimer's disease with early onset; F02.81 - Dementia in other diseases classified elsewhere with behavioral disturbance (7) Lactic acid blood increased Code(s): R79.89 - OTHER SPECIFIED ABNORMAL FINDINGS OF BLOOD CHEMISTRY
--- NOTE | 2016-10-27 09:56 | PN ---
Progress Note, Physician Chief Complaint: [facility] History of Present Illness: intubated, not communicative - Current Medication List Current Medications: Active Medications Acetaminophen (Tylenol Suppository -) 650 mg [place] Q6H PRN PRN Reason: FEVER OR PAIN Aspirin (Asa -) 81 mg PO DAILY [facility] Atorvastatin Calcium (Lipitor -) 40 mg PO HS [facility] Last Admin: 10/26/16 21:18 Dose: 40 mg Chlorhexidine Gluconate (Peridex -) 15 ml MM BID [facility] Last Admin: 10/26/16 21:18 Dose: 15 ml Chlorhexidine Gluconate (Hibiclens For Decolonization -) 1 applic TP HS [facility] Last Admin: 10/26/16 21:18 Dose: 1 applic Heparin Sodium (Porcine) (Heparin -) 5,000 unit SQ TID [facility] Last Admin: 10/27/16 06:12 Dose: 5,000 unit Imipenem/Cilastatin Sodium 500 (mg/ Sodium Chloride) 100 mls @ 100 mls/hr IVPB Q6H-IV [facility] PRN Reason: Protocol Last Admin: 10/27/16 09:17 Dose: 100 mls/hr Pantoprazole Sodium (Protonix 40mg Ivpb (Pre-Docked)) 100 mls @ 200 mls/hr IVPB DAILY [facility] Propofol (Diprivan -) 100 mls @ 2.424 mls/hr IVPB TITR [facility]; 5 MCG/KG/MIN PRN Reason: Protocol Last Admin: 10/26/16 19:00 Dose: 21.816 mls/hr Insulin Aspart (Novolog Vial Sliding Scale -) 1 vial SQ Q6HPO [facility] PRN Reason: Protocol Last Admin: 10/27/16 06:25 Dose: Not Given Insulin Detemir (Levemir Vial) 10 units SQ BIDI [facility] Last Admin: 10/27/16 06:25 Dose: 10 units Metoprolol Tartrate (Lopressor -) 25 mg PO TID [facility] Last Admin: 10/27/16 06:12 Dose: 25 mg Metoprolol Tartrate (Lopressor Injection -) 5 mg IVPUSH Q6H PRN PRN Reason: HYPERTENSION - Objective Vital Signs: Vital Signs Temperature 98.5 F 10/27/16 09:50 Pulse Rate 97 H 10/27/16 09:50 Respiratory Rate 27 H 10/27/16 09:50 Blood Pressure 126/66 10/27/16 09:50 O2 Sat by Pulse Oximetry (%) 91 L 10/27/16 08:00 Constitutional: Yes: Well Nourished, No Distress, Calm Cardiovascular: Yes: Regular Rate and Rhythm, S1, S2. No: JVD, S3 Respiratory: Yes: Regular, CTA Bilaterally (anteriorly). No: Accessory Muscle Use, Rales, Wheezes Extremities: No: Cool Edema: No Neurological: No: Alert, Oriented, Seizure Psychiatric: No: Agitated Labs: CBC, BMP 10/26/16 05:10 10/26/16 05:10 INR, PTT INR 1.19 (0.82-1.09) H 10/25/16 05:30 - ....Imaging EKG: Other (tele: NSR) Assessment/Plan cxr: worsened congestion echo 10/2016: sev dilated lv, sev dec lvef, rv mod dilated/mod dec rv fcn, reina, mild mr Assessment/Plan HTN - becomes hypertensive when tachypneic or off sedation, but pressures tend to drop again when sedation is resumed. - currently bp acceptable, will uptitrate metoprolol acute hypoxic resp failure, multifactorial: PNA, recent influenza dx, acute syst chf: -s/p trach, vent support per pulm -abx per ID, crit care -echo here showing biventricular failure, suspect chronic (prior hx details unknown to us)--will need f/u echo later once recovers from acute illness -cont bb for now, consider kathie-i later wif bp stable -chf likely minor contributor to resp failure here, + congested cxr--dosing lasix daily prn based on exam and cxr - 10/25: worsening edema, s/p lasix 40 mg IV x 1. - 10/27: no edema; cxr unchanged (pulm edema vs infiltrates)--re-dose lasix today sepsis -initially with PNA -defervesced, then spiked again to 101.9 -rpt cx's pending, r/o vent associated PNA--infectious w/u and tx per ID/crit care prior h/o CAD, + elevated troponin here--NSTEMI: -initial trop 3.4, trended down. -florid sepsis picture at that time: ? sepsis direct myocardial injury, vs Type II [facility] from hypoxia/tachycardia vs Type I [facility] (ACS) -ECG with ischemic changes (TWIs anteriorly)--also could all be secondary to above -echo here with severe dec lvef, no RWMA described -treated as nstemi here with hep gtt initially -cont ASA, statin and bb -plavix deferred given advanced age, tenuous clinical status/serious comorbid processes -further ischemic eval based on clinical course NSVT: -intermittent recurrent brief runs on tele -replete K/Mg prn (usual targets) -cont bb as bp tolerates. est crit care time 35min
[2016-10-27] MEDS: PANTOPRAZOLE SODIUM 100 ML IVPB SCH (10:24)
[2016-10-27] MEDS: CHLORHEXIDINE GLUCONATE 0.12% 15ML CUP MM SCH ×2 (10:24→21:46)
[2016-10-27] MEDS: ASPIRIN 81 MG CHEWABLE TABLETS PO SCH (10:24)
[2016-10-27 10:58] LABS: MCH 27.6 pg (25.7-33.7); MCHC 32.9 g/dl (32.0-35.9); MEAN PLT VOLUME 9.1 fl (7.5-11.1); PLATELET COUNT 349 K/MM3 (134-434)
[2016-10-27] MEDS ORDERED: FUROSEMIDE 40 MG/4 ML INJECTABLE VIAL IVPUSH ONE (11:15)
[2016-10-27 11:27] LABS: ALBUMIN 1.2 g/dl (3.4-5.0); BILIRUBIN,DIRECT 0.9 mg/dL (0.0-0.2); HYPOCHROMIA 1+; PLATELET ESTIMATE INCREASED (NORMAL); POLYCHROMASIA FEW
[2016-10-27 11:29] LABS: BILIRUBIN,TOTAL 1.2 mg/dL (0.2-1.0); TOT PROT 5.5 g/dl (6.4-8.2)
[2016-10-27 11:46] LABS: ALBUMIN 1.1 g/dl (3.4-5.0); ALK PHOS 311 U/L (45-117); ANION GAP 9 (8-16); BILIRUBIN,TOTAL 1.2 mg/dL (0.2-1.0); CALCIUM 7.6 mg/dL (8.5-10.1); CO2 28 mmol/L (21-32); COCKROFT - GAULT 90; CREATININE 0.7 mg/dL (0.7-1.3); GLUCOSE,RANDOM 88 mg/dL (74-106); SGOT/AST 228 U/L (15-37); SGPT/ALT 129 U/L (12-78); TOT PROT 5.2 g/dl (6.4-8.2)
--- NOTE | 2016-10-27 12:18 | CONSULT ---
Consult Consult Specialty:: Surgery Referred by:: Regina Jones Reason for Consultation:: Acute cholecystitis, - History of Present Illness History of Present Illness: Patient is admitted with acute respiratory failure, requiring tracheostomy. An abdominal CT scan shows opacification in the gallbladder, thick walled gallbladder and pericholecystic fluid. Patient is unable to respond. - History Source History Provided By: Medical Record, Caregiver - Past Medical History COM[employer]ED [employer]: Yes: Dementia Cardio/Vascular: Yes: HTN - Alcohol/Substance Use Hx Alcohol Use: No - Smoking History Smoking history: Former smoker Have you smoked in the past 12 months: No If you are a former smoker, when did you quit?: 1999 - Social History Usual Living Arrangement: Correction ADL: Support Services Home Medications - Allergies Allergies/Adverse Reactions: Allergies Allergy/AdvReac Type Severity Reaction Status Date / Time Penicillins Allergy Verified 10/15/16 08:41 - Home Medications Home Medications: Ambulatory Orders Metoprolol Succinate [Toprol XL -] 12.5 mg PO DAILY 03/26/16 Acetaminophen [Tylenol] 650 mg PO Q6H PRN 10/08/16 Amlodipine Besylate [Norvasc -] 2.5 mg PO DAILY 10/08/16 Aspirin [ASA -] 81 mg PO DAILY 10/08/16 Cyanocobalamin Vit B-12 Inj. [Vitamin B12 Injection -] 1,000 mcg IM [facility] Metformin HCl [Metformin HCl ER] 500 mg PO BID 10/08/16 Albuterol 0.083% Nebulizer Princess [Ventolin 0.083% Nebulizer Soln -] 1 amp NEB QIDR #20 amp 10/11/16 Physical Exam Vital Signs: Vital Signs Temperature 98.5 F 10/27/16 09:50 Pulse Rate 97 H 10/27/16 09:56 Respiratory Rate 20 10/27/16 12:06 Blood Pressure 126/66 10/27/16 09:50 O2 Sat by Pulse Oximetry (%) 88 L 10/27/16 10:00 Gastrointestinal: Yes: Other (Patient has a gastrostomy tube, and unable to respond as he is on a ventilator with controlled respiration.) Labs: CBC, BMP 10/27/16 10:53 10/27/16 10:53 Imaging - Results Cat Scan: Report Reviewed, Image Reviewed Problem List - Problems (1) Encephalopathy acute Code(s): G93.40 - ENCEPHALOPATHY, UNSPECIFIED (2) Cholecystitis with cholelithiasis Code(s): K80.10 - CALCULUS OF GALLBLADDER W CHRONIC CHOLECYST W/O OBSTRUCTION Qualifiers: Cholelithiasis location: gallbladder Cholecystitis acuity: acute Biliary obstruction: without biliary obstruction Qualified Code(s): K80.00 - Calculus of gallbladder with acute cholecystitis without obstruction (3) Respiratory failure Code(s): J96.90 - RESPIRATORY FAILURE, UNSP, UNSP W HYPOXIA OR HYPERCAPNIA Qualifiers: Chronicity: acute Respiratory failure complication: hypoxia Qualified Code(s): J96.01 - Acute respiratory failure with hypoxia (4) Sepsis Code(s): A41.9 - SEPSIS, UNSPECIFIED ORGANISM Qualifiers: Sepsis type: sepsis due to unspecified organism Qualified Code(s): A41.9 - Sepsis, unspecified organism Assessment/Plan Patient is too sick for any major surgical procedure at this time. Suggest treatment of cholecytitis, with antibiotics. If no improvement, consider cholecystostomy by IR , to control infection/ sepsis. Thank you, I will follow.
[2016-10-27] MEDS: D5-1/2NS+10 MEQ KCL - 1,000 ML IV SCH (12:26)
[2016-10-27] MEDS: PROPOFOL 100 ML IVPB SCH ×2 (15:18→20:30)
--- NOTE | 2016-10-27 16:47 | PN ---
Progress Note (short form) - Note Progress Note: on sedation trach Vital Signs Period Temp Pulse Resp BP Sys/Machado Pulse Ox Last 24 Hr 98.5 F-101 F 90-98 18-93 112-147/57-74 88-96 cor-rrr lulngs decreased bs at bases abd soft ext no edema CBC, BMP 10/27/16 10:53 10/27/16 10:53 ct scans with LLL infiltrate, ?rul mass, acalculus cholycystiitits a/p resp failure acute cholycystitis- surgery note reviewed, to consider IR drainage of gallbladder, not a surgical candidate pneumonia continue antibiotics
[2016-10-27] MEDS: CHLORHEXIDINE GLUCONATE 4% CLEANSER FOR DECOLONIZATION TP SCH (21:46)
[2016-10-27] MEDS: ATORVASTATIN CA 40 MG TABLET (FP) PO SCH (21:46)
[2016-10-28] MEDS: IMIPENEM/CILASTATIN SODIUM 500 MG in SODIUM CHLORIDE 100 ML IVPB SCH ×4 (02:00→20:54)
[2016-10-28] MEDS ORDERED: HEMOQUE CONTROL SOLUTION ONE (05:43)
[2016-10-28] MEDS: INSULIN SLIDING SCALE (NOVOLOG) 1 VIAL SQ SCH ×4 (05:55→23:27)
[2016-10-28] MEDS: HEPARIN NA (PORCINE) 5,000 UNITS/ML 1ML VIAL SQ SCH ×3 (05:55→21:39)
[2016-10-28] MEDS: METOPROLOL TARTRATE 25 MG TABLET (FP) PO SCH ×3 (05:55→21:39)
[2016-10-28 06:04] LABS: MCH 27.4 pg (25.7-33.7); MCHC 32.9 g/dl (32.0-35.9); MEAN CELL VOLUME 83.3 fl (80-96); PLATELET COUNT 370 K/MM3 (134-434); RDW 14.3 % (11.9-15.9); WHITE BLOOD COUNT 18.2 K/mm3 (4.0-10.0)
[2016-10-28] MEDS: INSULIN DETEMIR 100 UNITS/ML MDV SQ SCH ×2 (06:26→16:27)
[2016-10-28 06:30] LABS: ALK PHOS 334 U/L (45-117); ANION GAP 8 (8-16); BILIRUBIN,TOTAL 1.1 mg/dL (0.2-1.0); CALCIUM 7.7 mg/dL (8.5-10.1); CO2 29 mmol/L (21-32); COCKROFT - GAULT 127; CREATININE 0.5 mg/dL (0.7-1.3); GLUCOSE,RANDOM 84 mg/dL (74-106); SGOT/AST 223 U/L (15-37); SGPT/ALT 126 U/L (12-78); TOT PROT 4.6 g/dl (6.4-8.2)
[2016-10-28] MEDS ORDERED: POTASSIUM CHLORIDE ORAL LIQUID 20 MEQ/15 ML PO ONE (07:00)
--- NOTE | 2016-10-28 07:02 | PN ---
Progress Note, Physician Chief Complaint: chf, [place] History of Present Illness: intubated/sedated; appears calm, comfortable - Current Medication List Current Medications: Active Medications Acetaminophen (Tylenol Suppository -) 650 mg [place] Q6H PRN PRN Reason: FEVER OR PAIN Aspirin (Asa -) 81 mg PO DAILY [facility] Last Admin: 10/27/16 10:24 Dose: 81 mg Atorvastatin Calcium (Lipitor -) 40 mg PO HS [facility] Last Admin: 10/27/16 21:46 Dose: 40 mg Chlorhexidine Gluconate (Peridex -) 15 ml MM BID [facility] Last Admin: 10/27/16 21:46 Dose: 15 ml Chlorhexidine Gluconate (Hibiclens For Decolonization -) 1 applic TP HS [facility] Last Admin: 10/27/16 21:46 Dose: 1 applic Heparin Sodium (Porcine) (Heparin -) 5,000 unit SQ TID [facility] Last Admin: 10/28/16 05:55 Dose: 5,000 unit Imipenem/Cilastatin Sodium 500 (mg/ Sodium Chloride) 100 mls @ 100 mls/hr IVPB Q6H-IV [facility] PRN Reason: Protocol Last Admin: 10/28/16 02:00 Dose: 100 mls/hr Pantoprazole Sodium (Protonix 40mg Ivpb (Pre-Docked)) 100 mls @ 200 mls/hr IVPB DAILY [facility] Last Admin: 10/27/16 10:24 Dose: 200 mls/hr Propofol (Diprivan -) 100 mls @ 2.424 mls/hr IVPB TITR [facility]; 5 MCG/KG/MIN PRN Reason: Protocol Last Titration: 10/28/16 06:26 Dose: 5 mcg/kg/min Potassium Chloride/Dextrose/Sod Cl (D5-1/2ns+10 Meq Kcl -) 1,000 mls @ 100 mls/ hr IV ASDIR [facility] Last Admin: 10/27/16 12:26 Dose: 100 mls/hr Insulin Aspart (Novolog Vial Sliding Scale -) 1 vial SQ Q6HPO [facility] PRN Reason: Protocol Last Admin: 10/28/16 05:55 Dose: Not Given Insulin Detemir (Levemir Vial) 10 units SQ BIDI [facility] Last Admin: 10/28/16 06:26 Dose: Not Given Metoprolol Tartrate (Lopressor -) 25 mg PO TID [facility] Last Admin: 10/28/16 05:55 Dose: 25 mg Metoprolol Tartrate (Lopressor Injection -) 5 mg IVPUSH Q6H PRN PRN Reason: HYPERTENSION - Objective Vital Signs: Vital Signs Temperature 99.9 F H 10/28/16 06:00 Pulse Rate 79 10/28/16 06:00 Respiratory Rate 16 10/28/16 06:00 Blood Pressure 120/54 10/28/16 06:00 O2 Sat by Pulse Oximetry (%) 100 10/28/16 06:00 Constitutional: Yes: Well Nourished, No Distress, Calm Cardiovascular: Yes: Regular Rate and Rhythm, S1, S2. No: Gallop, Murmur Respiratory: Yes: Regular, CTA Bilaterally (anteriorly). No: Accessory Muscle Use, Wheezes Extremities: No: Cold Edema: Yes (1+ (SCDs)) Neurological: No: Alert, Oriented, Seizure Psychiatric: No: Agitated Labs: CBC, BMP 10/28/16 05:15 10/28/16 06:00 INR, PTT INR 1.19 (0.82-1.09) H 10/25/16 05:30 - ....Imaging EKG: Other (tele: NSR; VT run x 7b) Assessment/Plan cxr: worsened congestion echo 10/2016: sev dilated lv, sev dec lvef, rv mod dilated/mod dec rv fcn, reina, mild mr Assessment/Plan HTN - becomes hypertensive when tachypneic or off sedation, but pressures tend to drop again when sedation is resumed. - currently bp acceptable, will uptitrate metoprolol acute hypoxic resp failure, multifactorial: PNA, recent influenza dx, acute syst chf: -s/p trach, vent support per pulm -abx per ID, crit care -echo here showing biventricular failure, suspect chronic (prior hx details unknown to us)--will need f/u echo later once recovers from acute illness -cont bb for now, consider kathie-i later wif bp stable -chf likely minor contributor to resp failure here, + congested cxr--dosing lasix daily prn based on exam and cxr - 10/25: worsening edema, s/p lasix 40 mg IV x 1. - 10/27: no edema; cxr unchanged (pulm edema vs infiltrates)--re-dose lasix today -10/28: cxr no change, mild periph edema; ? 3rd spacing (albumin very low)-- defer lasix today sepsis -initially with PNA -defervesced, then spiked again to 101.9 -rpt cx's pending, r/o vent associated PNA--infectious w/u and tx per ID/crit care prior h/o CAD, + elevated troponin here--NSTEMI: -initial trop 3.4, trended down. -florid sepsis picture at that time: ? sepsis direct myocardial injury, vs Type II [place] from hypoxia/tachycardia vs Type I [place] (ACS) -ECG with ischemic changes (TWIs anteriorly)--also could all be secondary to above -echo here with severe dec lvef, no RWMA described -treated as nstemi here with hep gtt initially -cont ASA, statin and bb -plavix deferred given advanced age, tenuous clinical status/serious comorbid processes -further ischemic eval based on clinical course NSVT: -intermittent recurrent brief runs on tele -replete K/Mg prn (usual targets) -cont metopr 25 tid hypoalbuminemia/poor nutrition: -per crit care LFTs: -elevated alk phos, AST/ALT -rx'd atorva here, ? new rx (per ER med list in [facility]) -monitor LFTs trend, if no other etiology found (abx? propafol?) will hold statin est crit care time 35min
[2016-10-28 07:18] LABS: ARTERIAL BLD GAS O2 SATURATION 99.5 % (90-98.9); ARTERIAL BLOOD GAS BASE EXCESS 3.7 meq/l (-2-2); ARTERIAL BLOOD GAS HCO3 27.8 meq/L (22-26); ARTERIAL BLOOD GAS pH 7.44 (7.35-7.45)
[2016-10-28 07:19] LABS: ALLENS TEST POSITIVE; ART PUNCT SITE RIGHT RADIAL; LPM/O2% 80%; PT. ON O2? YES; TYPE OF O2 MECH VENT
[2016-10-28 07:20] LABS: MECH. VENT. YES; VENT RATE 12; VT/PRESS 500
[2016-10-28] MEDS: KCL 10 MEQ IVPB 100 ML IVPB SCH ×2 (07:45→09:18)
--- NOTE | 2016-10-28 08:26 | PN ---
Progress Note (short form) - Note Progress Note: opens eyes trach sedation just stopped Vital Signs Period Temp Pulse Resp BP Sys/Machado Pulse Ox Last 24 Hr 98.5 F-100.7 F 79-97 15-28 112-134/50-70 88-100 cor-rrr lungs decreased bs at bases abd soft, +binder ext no edema CBC, BMP 10/28/16 05:15 10/28/16 06:00 Laboratory Tests 10/28/16 06:00 Total Bilirubin 1.1 H AST 223 H ALT 126 H Alkaline Phosphatase 334 H a/p day #7 imipenem cholycystitis resp failure ?IR drainage of gallbladder continue antibiotics
[2016-10-28] MEDS: PANTOPRAZOLE SODIUM 100 ML IVPB SCH (09:20)
[2016-10-28] MEDS: ASPIRIN 81 MG CHEWABLE TABLETS PO SCH (09:20)
[2016-10-28] MEDS: CHLORHEXIDINE GLUCONATE 0.12% 15ML CUP MM SCH ×2 (09:20→21:39)
--- NOTE | 2016-10-28 09:56 | PN ---
Progress Note (short form) - Note Progress Note: Pt seen/ examined in icu All f/u noted Discussed with yesterday and consult appreciated Agree with drainage--IR low grade temp wbc coming down. off sedation opens eyes on calling. Vital Signs Temp 100.1 F H 10/28/16 09:05 Pulse 74 10/28/16 08:00 Resp 16 10/28/16 08:00 BP 126/59 10/28/16 08:00 Pulse Ox 100 10/28/16 06:00 Intake & Output 10/27/16 10/27/16 10/28/16 11:59 23:59 11:59 Intake Total 742.8 1944.2 Output Total 300 1400 Balance 442.8 544.2 Weight 186 lb 1.122 oz 187 lb 13.341 oz Intake: IV 262.8 1164.2 Diprivan - 100 ml @ 5 MCG 262.8 139.2 /KG/MIN 2.424 mls/hr IVPB TITR [facility] Rx#:[id number] D5-1/2Ns+10 Meq KCl - 1, 1025 000 ml @ 100 mls/hr IV ASDIR [facility] Rx#:[id number] IVPB 200 400 Tube Feeding 120 80 Tube Irrigant 160 300 Output: Urine 300 1400 Palacio 300 1400 Other: Voiding Method Indwelling Catheter Indwelling Catheter Bowel Movement No Yes: small # Bowel Movements 1 Weight Measurement Method Built in [facility] Active Medications Acetaminophen (Tylenol Suppository -) 650 mg DC Q6H PRN PRN Reason: FEVER OR PAIN Aspirin (Asa -) 81 mg PO DAILY [facility] Last Admin: 10/28/16 09:20 Dose: 81 mg Atorvastatin Calcium (Lipitor -) 40 mg PO HS [facility] Last Admin: 10/27/16 21:46 Dose: 40 mg Chlorhexidine Gluconate (Peridex -) 15 ml MM BID [facility] Last Admin: 10/28/16 09:20 Dose: 15 ml Chlorhexidine Gluconate (Hibiclens For Decolonization -) 1 applic TP [facility] Last Admin: 10/27/16 21:46 Dose: 1 applic Heparin Sodium (Porcine) (Heparin -) 5,000 unit SQ TID [facility] Last Admin: 10/28/16 05:55 Dose: 5,000 unit Imipenem/Cilastatin Sodium 500 (mg/ Sodium Chloride) 100 mls @ 100 mls/hr IVPB Q6H-IV [facility] PRN Reason: Protocol Last Admin: 10/28/16 09:21 Dose: 100 mls/hr Pantoprazole Sodium (Protonix 40mg Ivpb (Pre-Docked)) 100 mls @ 200 mls/hr IVPB DAILY [facility] Last Admin: 10/28/16 09:20 Dose: 200 mls/hr Propofol (Diprivan -) 100 mls @ 2.424 mls/hr IVPB TITR [facility]; 5 MCG/KG/MIN PRN Reason: Protocol Last Titration: 10/28/16 06:26 Dose: 5 mcg/kg/min Potassium Chloride/Dextrose/Sod Cl (D5-1/2ns+10 Meq Kcl -) 1,000 mls @ 100 mls/ hr IV ASDIR [facility] Last Admin: 10/27/16 12:26 Dose: 100 mls/hr Potassium Chloride (Potassium Chloride 10 Meq Premix Ivpb -) 100 mls @ 100 mls/ hr IVPB Q60M [facility] Stop: 10/28/16 09:59 Last Admin: 10/28/16 09:18 Dose: 100 mls/hr Insulin Aspart (Novolog Vial Sliding Scale -) 1 vial SQ Q6HPO [facility] PRN Reason: Protocol Last Admin: 10/28/16 05:55 Dose: Not Given Insulin Detemir (Levemir Vial) 10 units SQ BIDI [facility] Last Admin: 10/28/16 06:26 Dose: Not Given Metoprolol Tartrate (Lopressor -) 25 mg PO TID [facility] Last Admin: 10/28/16 05:55 Dose: 25 mg Metoprolol Tartrate (Lopressor Injection -) 5 mg IVPUSH Q6H PRN PRN Reason: HYPERTENSION CBC,CMP WBC 18.2 K/mm3 (4.0-10.0) H 10/28/16 05:15 RBC 3.56 M/mm3 (4.00-5.60) L 10/28/16 05:15 Hgb 9.8 GM/dL (11.7-16.9) L D 10/28/16 05:15 Hct 29.7 % (35.4-49) L 10/28/16 05:15 MCV 83.3 fl (80-96) 10/28/16 05:15 MCHC 32.9 g/dl (32.0-35.9) 10/28/16 05:15 RDW 14.3 % (11.9-15.9) 10/28/16 05:15 Plt Count 370 K/MM3 (134-434) 10/28/16 05:15 MPV 9.0 fl (7.5-11.1) 10/28/16 05:15 Neutrophils % 88.0 % (42.8-82.8) H 10/27/16 10:53 Lymphocytes % 3.0 % (8-40) L D 10/27/16 10:53 Monocytes % 4.0 % (3.8-10.2) 10/27/16 10:53 Eosinophils % 2.0 % (0-4.5) D 10/22/16 05:15 Basophils % 0.2 % (0-2.0) 10/22/16 05:15 Band Neutrophils 5.0 % (0-10) D 10/27/16 10:53 Differential Comment Manual diff done 10/26/16 05:10 Reactive Lymphocytes 3 % (0-80) 10/15/16 09:16 Platelet Estimate Increased (NORMAL) 10/27/16 10:53 Platelet Comment No clumping noted 10/27/16 10:53 Polychromasia Few 10/27/16 10:53 Hypochromic-Microcytic 1+ 10/27/16 10:53 Poly Cells 2+ 10/17/16 05:25 Morphology Comment Slide scanned 10/17/16 05:25 Sodium 139 mmol/L (136-145) 10/28/16 06:00 Potassium 3.5 mmol/L (3.5-5.1) 10/28/16 06:00 Chloride 102 mmol/L (98-107) 10/28/16 06:00 Carbon Dioxide 29 mmol/L (21-32) 10/28/16 06:00 Anion Gap 8 (8-16) 10/28/16 06:00 BUN 21 mg/dL (7-18) H 10/28/16 06:00 Creatinine 0.5 mg/dL (0.7-1.3) L D 10/28/16 06:00 Creat Clearance w eGFR > 60 (>60) 10/28/16 06:00 POC Glucometer 115.13558 UNITS (()) 10/28/16 05:50 Random Glucose 84 mg/dL (74-106) 10/28/16 06:00 Lactic Acid 2.358 mmol/L (0.4-2.0) H* 10/16/16 02:30 Calcium 7.7 mg/dL (8.5-10.1) L 10/28/16 06:00 Phosphorus 2.9 mg/dL (2.5-4.9) 10/26/16 05:10 Magnesium 1.7 mg/dL (1.8-2.4) L 10/26/16 05:10 Total Bilirubin 1.1 mg/dL (0.2-1.0) H 10/28/16 06:00 Direct Bilirubin 0.9 mg/dL (0.0-0.2) H 10/27/16 10:53 AST 223 U/L (15-37) H 10/28/16 06:00 ALT 126 U/L (12-78) H 10/28/16 06:00 Alkaline Phosphatase 334 U/L (45-117) H 10/28/16 06:00 Creatine Kinase 78 IU/L (39-308) 10/15/16 15:15 Troponin I 0.36 ng/ml (0.00-0.05) H D 10/17/16 17:45 Total Protein 4.6 g/dl (6.4-8.2) L 10/28/16 06:00 Albumin 1.0 g/dl (3.4-5.0) L 10/28/16 06:00 PHYSICAL EXAMINATION: Constitutional: Yes: S/p trach. Cardiovascular: Yes: Regular Rate and Rhythm Respiratory: Yes: Diminished at bases Gastrointestinal: Yes: soft / s/p g tube ASSESSMENT & PLAN: - continue abx - tapered off seadtion - weaning as tolerated - continue present care - will follow - Discussed with Dr. Rodriguez also today - discussed with nursing staff also - feedings on hold --cc time - 30 min Problem List - Problems (1) Acute respiratory failure with hypoxia Code(s): J96.01 - ACUTE RESPIRATORY FAILURE WITH HYPOXIA (2) Cerebrovascular disease Code(s): I67.9 - CEREBROVASCULAR DISEASE, UNSPECIFIED (3) Cerebrovascular small vessel disease Code(s): I67.9 - CEREBROVASCULAR DISEASE, UNSPECIFIED (4) Healthcare-associated pneumonia Code(s): J18.9 - PNEUMONIA, UNSPECIFIED ORGANISM (5) Sepsis Code(s): A41.9 - SEPSIS, UNSPECIFIED ORGANISM Qualifiers: Sepsis type: sepsis due to unspecified organism Qualified Code(s): A41.9 - Sepsis, unspecified organism (6) Alzheimer disease Code(s): G30.9 - ALZHEIMER'S DISEASE, UNSPECIFIED Qualifiers: Alzheimer's disease onset: early-onset Dementia behavioral disturbance : without behavioral disturbance Qualified Code(s): G30.0 - Alzheimer's disease with early onset; F02.81 - Dementia in other diseases classified elsewhere with behavioral disturbance (7) Lactic acid blood increased Code(s): R79.89 - OTHER SPECIFIED ABNORMAL FINDINGS OF BLOOD CHEMISTRY (8) Cholecystitis Code(s): K81.9 - CHOLECYSTITIS, UNSPECIFIED
--- NOTE | 2016-10-28 10:34 | PN ---
Progress Note (short form) - Note Progress Note: Seen and examined in the ICU remains trached and peged stable off sedation, opens eyes to voice and moving RUE spont, not following commands Surgical eval for cholecystectomy deemed not a candidate Possible drainage in IR cont with low grade fever Current Medications Acetaminophen (Tylenol Suppository -) 650 mg DE Q6H PRN PRN Reason: FEVER OR PAIN Aspirin (Asa -) 81 mg PO DAILY [facility] Last Admin: 10/28/16 09:20 Dose: 81 mg Atorvastatin Calcium (Lipitor -) 40 mg PO HS [facility] Last Admin: 10/27/16 21:46 Dose: 40 mg Chlorhexidine Gluconate (Peridex -) 15 ml MM BID [facility] Last Admin: 10/28/16 09:20 Dose: 15 ml Chlorhexidine Gluconate (Hibiclens For Decolonization -) 1 applic TP HS [facility] Last Admin: 10/27/16 21:46 Dose: 1 applic Heparin Sodium (Porcine) (Heparin -) 5,000 unit SQ TID [facility] Last Admin: 10/28/16 05:55 Dose: 5,000 unit Imipenem/Cilastatin Sodium 500 (mg/ Sodium Chloride) 100 mls @ 100 mls/hr IVPB Q6H-IV [facility] PRN Reason: Protocol Last Admin: 10/28/16 09:21 Dose: 100 mls/hr Pantoprazole Sodium (Protonix 40mg Ivpb (Pre-Docked)) 100 mls @ 200 mls/hr IVPB DAILY [facility] Last Admin: 10/28/16 09:20 Dose: 200 mls/hr Propofol (Diprivan -) 100 mls @ 2.424 mls/hr IVPB TITR [facility]; 5 MCG/KG/MIN PRN Reason: Protocol Last Titration: 10/28/16 06:26 Dose: 5 mcg/kg/min Potassium Chloride/Dextrose/Sod Cl (D5-1/2ns+10 Meq Kcl -) 1,000 mls @ 100 mls/ hr IV ASDIR [facility] Last Admin: 10/27/16 12:26 Dose: 100 mls/hr Insulin Aspart (Novolog Vial Sliding Scale -) 1 vial SQ Q6HPO [facility] PRN Reason: Protocol Last Admin: 10/28/16 05:55 Dose: Not Given Insulin Detemir (Levemir Vial) 10 units SQ BIDI [facility] Last Admin: 10/28/16 06:26 Dose: Not Given Metoprolol Tartrate (Lopressor -) 25 mg PO TID [facility] Last Admin: 10/28/16 05:55 Dose: 25 mg Metoprolol Tartrate (Lopressor Injection -) 5 mg IVPUSH Q6H PRN PRN Reason: HYPERTENSION Vital Signs Period Temp Pulse Resp BP Sys/Machado Pulse Ox Last 24 Hr 98.7 F-100.7 F 74-97 15-26 112-134/50-70 93-100 Intake & Output 10/25/16 10/26/16 10/27/16 10/28/16 23:59 23:59 23:59 23:59 Intake Total 979 1715 2687.0 Output Total 1800 2400 1700 Balance -821 -685 987.0 Weight 83.9 kg 83.5 kg 84.4 kg 85.2 kg Gen: trached, no distress Neuro: opened eyes to voice, moves right arm spont, moved lower extremities to noxious stimulation, left arm flaccid Heart: RRR Lung: scattered rhonchi Abd: soft, PEG c/d/i, tneder to deep palp Ext: + edema CBCD WBC 18.2 K/mm3 (4.0-10.0) H 10/28/16 05:15 RBC 3.56 M/mm3 (4.00-5.60) L 10/28/16 05:15 Hgb 9.8 GM/dL (11.7-16.9) L D 10/28/16 05:15 Hct 29.7 % (35.4-49) L 10/28/16 05:15 MCV 83.3 fl (80-96) 10/28/16 05:15 MCHC 32.9 g/dl (32.0-35.9) 10/28/16 05:15 RDW 14.3 % (11.9-15.9) 10/28/16 05:15 Plt Count 370 K/MM3 (134-434) 10/28/16 05:15 MPV 9.0 fl (7.5-11.1) 10/28/16 05:15 CMP Sodium 139 mmol/L (136-145) 10/28/16 06:00 Potassium 3.5 mmol/L (3.5-5.1) 10/28/16 06:00 Chloride 102 mmol/L (98-107) 10/28/16 06:00 Carbon Dioxide 29 mmol/L (21-32) 10/28/16 06:00 Anion Gap 8 (8-16) 10/28/16 06:00 BUN 21 mg/dL (7-18) H 10/28/16 06:00 Creatinine 0.5 mg/dL (0.7-1.3) L D 10/28/16 06:00 Creat Clearance w eGFR > 60 (>60) 10/28/16 06:00 Random Glucose 84 mg/dL (74-106) 10/28/16 06:00 Calcium 7.7 mg/dL (8.5-10.1) L 10/28/16 06:00 Total Bilirubin 1.1 mg/dL (0.2-1.0) H 10/28/16 06:00 AST 223 U/L (15-37) H 10/28/16 06:00 ALT 126 U/L (12-78) H 10/28/16 06:00 Alkaline Phosphatase 334 U/L (45-117) H 10/28/16 06:00 Total Protein 4.6 g/dl (6.4-8.2) L 10/28/16 06:00 Albumin 1.0 g/dl (3.4-5.0) L 10/28/16 06:00 CARDIAC ENZYMES Creatine Kinase 78 IU/L (39-308) 10/15/16 15:15 Troponin I 0.36 ng/ml (0.00-0.05) H D 10/17/16 17:45 CXR: pulm vasc congestion, basilar atelectasis vs consolidation LLL, trach in satisfactory position Problem List - Problems (1) Acute respiratory failure with hypoxia Code(s): J96.01 - ACUTE RESPIRATORY FAILURE WITH HYPOXIA (2) Encephalopathy acute Code(s): G93.40 - ENCEPHALOPATHY, UNSPECIFIED (3) Healthcare-associated pneumonia Code(s): J18.9 - PNEUMONIA, UNSPECIFIED ORGANISM (4) Septic shock Code(s): A41.9 - SEPSIS, UNSPECIFIED ORGANISM R65.21 - SEVERE SEPSIS WITH SEPTIC SHOCK ASSESSMENT AND PLAN: Acute Hypoxic Respiratory Failure s/p trach adn PEG Acute cholecystitis Pneumonia Recent Influenza Severe Sepsis Acute Kidney Injury improving Lactic Acidosis resolved +Troponins - ?Demand Ischemia from Sepsis LV Systolic Heart Failure HTN CAD DM Dementia - continue antibiotics per ID - not a surgical candidate for cholecystectomy, will likely need perc drainage in IR - Daily assessment for lasix, goal negative fluid balance as tolerated - ASA, beta regina - taper Fio2 to keep Spo2 >90% - stable off sedation will prns as needed - vent wean: failed SBT 2/2 RR >40 Tv: 150s - wean Fio2 for Sat >90, decreased 80->60% today - DVT/GI prophylaxis - Eneteral feeds, NPO after midnight - Will hold in ICU given acute cholecystitis and IR intervention in AM Critical care time spent in reviewing chart, evaluating patient, and formulating plan : 35 min Abelino WELLSP Pulm/CCM CCT: 35m
[2016-10-28 12:22] LABS: BILIRUBIN,DIRECT 0.8 mg/dL (0.0-0.2); MAGNESIUM 2.1 mg/dL (1.8-2.4)
--- NOTE | 2016-10-28 13:16 | PN ---
Progress Note (short form) - Note Progress Note: S/p Trach and PEG and possible superimposed cholecystitis remains intubated /sedated opens eyes though not attending/communicating may move RUE non-purposefully + corneals, neck supple withdraws r foot, R planar up - Current Medication List Current Medications: Active Medications Acetaminophen (Tylenol Suppository -) 650 mg LA Q6H PRN PRN Reason: FEVER OR PAIN Last Admin: 10/21/16 16:53 Dose: 650 mg Aspirin (Asa -) 81 mg PO DAILY [facility] Last Admin: 10/22/16 12:51 Dose: 81 mg Atorvastatin Calcium (Lipitor -) 40 mg PO HS [facility] Last Admin: 10/22/16 21:52 Dose: 40 mg Chlorhexidine Gluconate (Hibiclens For Decolonization -) 1 applic TP HS [facility] Last Admin: 10/22/16 21:51 Dose: 1 applic Chlorhexidine Gluconate (Peridex -) 15 ml MM BID [facility] Last Admin: 10/22/16 21:50 Dose: 15 ml Heparin Sodium (Porcine) (Heparin -) 5,000 unit SQ BID [facility] Last Admin: 10/22/16 21:50 Dose: 5,000 unit Pantoprazole Sodium (Protonix 40mg Ivpb (Pre-Docked)) 100 mls @ 200 mls/hr IVPB DAILY [facility] Last Admin: 10/22/16 09:20 Dose: 200 mls/hr Propofol (Diprivan -) 100 mls @ 2.353 mls/hr IVPB TITR [facility]; 5 MCG/KG/MIN PRN Reason: Protocol Last Admin: 10/22/16 17:17 Dose: 3.294 mls/hr Propofol (Diprivan -) 100 mls @ 2.424 mls/hr IVPB TITR [facility]; 5 MCG/KG/MIN PRN Reason: Protocol Last Admin: 10/23/16 00:06 Dose: 4.848 mls/hr Vancomycin HCl 1,250 mg/ (Dextrose) 250 mls @ 166.667 mls/hr IVPB DAILY [facility] PRN Reason: Protocol Last Admin: 10/22/16 12:11 Dose: 166.667 mls/hr Imipenem/Cilastatin Sodium 500 (mg/ Sodium Chloride) 100 mls @ 100 mls/hr IVPB Q6H-IV [facility] PRN Reason: Protocol Last Admin: 10/23/16 03:53 Dose: 100 mls/hr Insulin Aspart (Novolog Vial Sliding Scale -) 1 vial SQ Q6HPO [facility] PRN Reason: Protocol Last Admin: 10/23/16 06:08 Dose: 4 units Insulin Detemir (Levemir Vial) 10 units SQ BIDI [facility] Last Admin: 10/23/16 06:08 Dose: 10 units Metoprolol Tartrate (Lopressor -) 12.5 mg PO TID [facility] Last Admin: 10/23/16 06:08 Dose: 12.5 mg - Objective Vital Signs: normotensive, breathing over vent Vital Signs Period Temp Pulse Resp BP Sys/Machado Pulse Ox Last 24 Hr 98.7 F-100.7 F 74-97 15-26 112-140/50-69 90-100 4 Neurological: Yes: Other (see above) Labs: CBC, BMP 10/23/16 05:15 INR, PTT INR 1.24 (0.82-1.09) H 10/15/16 09:16 Problem List Assessment/Plan 86 year old male from [facility] with PMH of HTN, HLD, CAD s/p bare metal stent, afib, L atrial lipoma, latent TB, Alzheimer's dementia and DM -- now with prolonged encephalopathy from resp failure, complicated with cholecystitis , s/p trach /PEG has some residual brain function, appears to move R >L, possible superimposed ischemic event continues to be sedated and poorly arousable (ideally to taper sedation --spoke to nurse today) very poor prognosis given prolonged encepahlopathy, with underlying dementia and multiple comorbidities spoke to daughter on 10/24 , and explained prognosis, though she would like to still think about end of life decisions, still full code Dr Kiran Problem List - Problems (1) Acute respiratory failure with hypoxia Code(s): J96.01 - ACUTE RESPIRATORY FAILURE WITH HYPOXIA (2) Cerebrovascular small vessel disease Code(s): I67.9 - CEREBROVASCULAR DISEASE, UNSPECIFIED (3) Encephalopathy acute Code(s): G93.40 - ENCEPHALOPATHY, UNSPECIFIED (4) Sepsis Code(s): A41.9 - SEPSIS, UNSPECIFIED ORGANISM Qualifiers: Sepsis type: sepsis due to unspecified organism Qualified Code(s): A41.9 - Sepsis, unspecified organism Problem List - Problems (1) Acute respiratory failure with hypoxia Code(s): J96.01 - ACUTE RESPIRATORY FAILURE WITH HYPOXIA (2) Cerebrovascular small vessel disease Code(s): I67.9 - CEREBROVASCULAR DISEASE, UNSPECIFIED (3) Encephalopathy acute Code(s): G93.40 - ENCEPHALOPATHY, UNSPECIFIED (4) Sepsis Code(s): A41.9 - SEPSIS, UNSPECIFIED ORGANISM Qualifiers: Sepsis type: sepsis due to unspecified organism Qualified Code(s): A41.9 - Sepsis, unspecified organism
--- NOTE | 2016-10-28 14:16 | PN ---
Progress Note, Physician - Current Medication List Current Medications: Active Medications Acetaminophen (Tylenol Suppository -) 650 mg ND Q6H PRN PRN Reason: FEVER OR PAIN Aspirin (Asa -) 81 mg PO DAILY [facility] Last Admin: 10/28/16 09:20 Dose: 81 mg Atorvastatin Calcium (Lipitor -) 40 mg PO HS [facility] Last Admin: 10/27/16 21:46 Dose: 40 mg Chlorhexidine Gluconate (Peridex -) 15 ml MM BID [facility] Last Admin: 10/28/16 09:20 Dose: 15 ml Chlorhexidine Gluconate (Hibiclens For Decolonization -) 1 applic TP HS [facility] Last Admin: 10/27/16 21:46 Dose: 1 applic Heparin Sodium (Porcine) (Heparin -) 5,000 unit SQ TID [facility] Last Admin: 10/28/16 05:55 Dose: 5,000 unit Imipenem/Cilastatin Sodium 500 (mg/ Sodium Chloride) 100 mls @ 100 mls/hr IVPB Q6H-IV [facility] PRN Reason: Protocol Last Admin: 10/28/16 09:21 Dose: 100 mls/hr Pantoprazole Sodium (Protonix 40mg Ivpb (Pre-Docked)) 100 mls @ 200 mls/hr IVPB DAILY [facility] Last Admin: 10/28/16 09:20 Dose: 200 mls/hr Propofol (Diprivan -) 100 mls @ 2.424 mls/hr IVPB TITR [facility]; 5 MCG/KG/MIN PRN Reason: Protocol Last Titration: 10/28/16 06:26 Dose: 5 mcg/kg/min Potassium Chloride/Dextrose/Sod Cl (D5-1/2ns+10 Meq Kcl -) 1,000 mls @ 100 mls/ hr IV ASDIR [facility] Last Admin: 10/27/16 12:26 Dose: 100 mls/hr Insulin Aspart (Novolog Vial Sliding Scale -) 1 vial SQ Q6HPO [facility] PRN Reason: Protocol Last Admin: 10/28/16 11:08 Dose: Not Given Insulin Detemir (Levemir Vial) 10 units SQ BIDI [facility] Last Admin: 10/28/16 06:26 Dose: Not Given Metoprolol Tartrate (Lopressor -) 25 mg PO TID [facility] Last Admin: 10/28/16 05:55 Dose: 25 mg Metoprolol Tartrate (Lopressor Injection -) 5 mg IVPUSH Q6H PRN PRN Reason: HYPERTENSION - Objective Vital Signs: Vital Signs Temperature 100.4 F H 10/28/16 13:33 Pulse Rate 88 10/28/16 13:33 Respiratory Rate 16 10/28/16 13:33 Blood Pressure 139/65 10/28/16 13:33 O2 Sat by Pulse Oximetry (%) 98 10/28/16 10:05 Labs: CBC, BMP 10/28/16 05:15 10/28/16 06:00 INR, PTT INR 1.19 (0.82-1.09) H 10/25/16 05:30 Problem List - Problems (1) Encephalopathy acute Code(s): G93.40 - ENCEPHALOPATHY, UNSPECIFIED (2) Cholecystitis with cholelithiasis Code(s): K80.10 - CALCULUS OF GALLBLADDER W CHRONIC CHOLECYST W/O OBSTRUCTION Qualifiers: Cholelithiasis location: gallbladder Cholecystitis acuity: acute Biliary obstruction: without biliary obstruction Qualified Code(s): K80.00 - Calculus of gallbladder with acute cholecystitis without obstruction (3) Respiratory failure Code(s): J96.90 - RESPIRATORY FAILURE, UNSP, UNSP W HYPOXIA OR HYPERCAPNIA Qualifiers: Chronicity: acute Respiratory failure complication: hypoxia Qualified Code(s): J96.01 - Acute respiratory failure with hypoxia (4) Sepsis Code(s): A41.9 - SEPSIS, UNSPECIFIED ORGANISM Qualifiers: Sepsis type: sepsis due to unspecified organism Qualified Code(s): A41.9 - Sepsis, unspecified organism Assessment/Plan Surgery: Unchanged. Abdominal ultrasound is not done. Temp 100.4 Liver enzymes elevated with normal bilirubin. Continue antibiotics, Sonogram og gallbladder. Drainage of gallbladder if cystic duct is obstructed.
[2016-10-28] MEDS ORDERED: PT OWN MED DRAWER 7, Y5N ONE ×2 (15:21→20:50)
[2016-10-28] MEDS: D5-1/2NS+10 MEQ KCL - 1,000 ML IV SCH (15:27)
[2016-10-28] MEDS: PROPOFOL 100 ML IVPB SCH (19:00)
[2016-10-28] MEDS: ATORVASTATIN CA 40 MG TABLET (FP) PO SCH (21:39)
[2016-10-28] MEDS: CHLORHEXIDINE GLUCONATE 4% CLEANSER FOR DECOLONIZATION TP SCH (21:39)
[2016-10-29] MEDS: IMIPENEM/CILASTATIN SODIUM 500 MG in SODIUM CHLORIDE 100 ML IVPB SCH ×4 (03:01→21:09)
[2016-10-29] MEDS: HEPARIN NA (PORCINE) 5,000 UNITS/ML 1ML VIAL SQ SCH ×3 (05:52→21:10)
[2016-10-29] MEDS: METOPROLOL TARTRATE 25 MG TABLET (FP) PO SCH ×3 (05:52→21:11)
[2016-10-29] MEDS: INSULIN SLIDING SCALE (NOVOLOG) 1 VIAL SQ SCH ×3 (05:53→17:59)
[2016-10-29 06:24] LABS: INR 1.24 (0.82-1.09); PROTHROMBIN TIME (PATIENT) 13.7 SEC (9.98-11.88)
[2016-10-29] MEDS: INSULIN DETEMIR 100 UNITS/ML MDV SQ SCH ×2 (06:29→16:30)
[2016-10-29 06:50] LABS: ANION GAP 10 (8-16); BILIRUBIN,TOTAL 0.9 mg/dL (0.2-1.0); CALCIUM 7.6 mg/dL (8.5-10.1); CO2 26 mmol/L (21-32); COCKROFT - GAULT 157; CREATININE 0.4 mg/dL (0.7-1.3); GLUCOSE,RANDOM 73 mg/dL (74-106); MAGNESIUM 1.9 mg/dL (1.8-2.4); SGOT/AST 163 U/L (15-37); SGPT/ALT 98 U/L (12-78); TOT PROT 4.8 g/dl (6.4-8.2)
[2016-10-29 06:51] LABS: ALBUMIN 0.9 g/dl (3.4-5.0); ALK PHOS 353 U/L (45-117)
[2016-10-29 07:10] LABS: BILIRUBIN,DIRECT 0.7 mg/dL (0.0-0.2); BILIRUBIN,TOTAL 0.9 mg/dL (0.2-1.0); TOT PROT 4.7 g/dl (6.4-8.2)
[2016-10-29 07:11] LABS: ALBUMIN 0.9 g/dl (3.4-5.0)
[2016-10-29 07:20] LABS: ARTERIAL BLD GAS O2 SATURATION 97.7 % (90-98.9); ARTERIAL BLOOD GAS BASE EXCESS 2.2 meq/l (-2-2); ARTERIAL BLOOD GAS HCO3 25.8 meq/L (22-26); ARTERIAL BLOOD GAS PO2 97.8 mmHg (68-100); ARTERIAL BLOOD GAS pH 7.45 (7.35-7.45)
[2016-10-29 07:21] LABS: ALLENS TEST POSITIVE; ART PUNCT SITE LEFT RADIAL; LPM/O2% 80%; MECH. VENT. YES; PT. ON O2? YES; TYPE OF O2 VENT; VENT RATE 12; VT/PRESS 500
--- NOTE | 2016-10-29 08:30 | PN ---
Physical Exam: SUBJECTIVE: Patient seen and examined for US today if no duct obstruction will consider IR. If obstruction medical management. Fio2 40% to 80% to 60%. febrile 100.5, trach intact. no leaks. maintaining good saturation and ventilation from fio2 80% to 60 % Acute cholecystitits on US, no dilation or obstruction noted will continue antibiotic, not candidate for surgery OBJECTIVE: Vital Signs Period Temp Pulse Resp BP Sys/Machado Pulse Ox Last 24 Hr 100.1 F-100.7 F 76-88 14-25 124-144/65-84 90-100 GENERAL: Intubated and sedated. responsive to verbal and tachtile stimuli, opens eyes, In no acute distress, minimally responsive to tactile stimuli, nonverbal HEAD: Normal with no signs of trauma. EYES: pin point pupils, no sclera anicteric, conjunctiva clear. EARS, NOSE, THROAT: Ears normal, nares patent, oropharynx clear without exudates. Moist mucous membranes. NECK: Normal range of motion, supple without lymphadenopathy, JVD, or masses. tracheostomy in place LUNGS: distant breath sounds, + crackles, No wheezes, and no crackles. No accessory muscle use. HEART: distant heart sounds no murmurs appreciated. ABDOMEN: Soft, nontender, not distended, normoactive bowel sounds, no guarding, no rebound, no masses. Peg tube in place MUSCULOSKELETAL: moves right upper ext, retracts R>L lower ext to pain, not move Left upper LOWER EXTREMITIES: 2+ pulses, warm, well-perfused. No calf tenderness. trace peripheral edema. PSYCHIATRIC: intubated sedated SKIN: Warm, dry, normal turgor, no rashes or lesions noted. Laboratory Results - last 24 hr 10/28/16 10/28/16 10/28/16 06:00 09:45 09:45 INR Puncture Site ABG pH ABG pCO2 at Pt Temp ABG pO2 at Pt Temp ABG HCO3 ABG O2 Sat (Measured) ABG O2 Content ABG Base Excess Alexandro Test O2 Delivery Device Oxygen Flow Rate Vent Mode Vent Rate Mechanical Rate PEEP Pressure Support Vent Sodium Potassium Chloride Carbon Dioxide Anion Gap BUN Creatinine Creat Clearance w eGFR POC Glucometer Random Glucose Calcium Magnesium 2.1 D Cancelled Total Bilirubin Cancelled Direct Bilirubin 0.8 H Cancelled AST Cancelled ALT Cancelled Alkaline Phosphatase Cancelled Total Protein Cancelled Albumin Cancelled 10/28/16 10/28/16 10/29/16 11:05 23:25 05:15 INR Puncture Site ABG pH ABG pCO2 at Pt Temp ABG pO2 at Pt Temp ABG HCO3 ABG O2 Sat (Measured) ABG O2 Content ABG Base Excess Alexandro Test O2 Delivery Device Oxygen Flow Rate Vent Mode Vent Rate Mechanical Rate PEEP Pressure Support Vent Sodium 139 Potassium 4.0 Chloride 103 Carbon Dioxide 26 Anion Gap 10 BUN 15 D Creatinine 0.4 L Creat Clearance w eGFR > 60 POC Glucometer 142.97866 115.43867 Random Glucose 73 L Calcium 7.6 L Magnesium 1.9 Total Bilirubin 0.9 Direct Bilirubin AST 163 H D ALT 98 H D Alkaline Phosphatase 353 H Total Protein 4.8 L Albumin 0.9 L 10/29/16 10/29/16 10/29/16 05:15 05:15 07:00 INR 1.24 H Puncture Site Left radial ABG pH 7.45 ABG pCO2 at Pt Temp 37.9 ABG pO2 at Pt Temp 97.8 D ABG HCO3 25.8 ABG O2 Sat (Measured) 97.7 ABG O2 Content 15.5 ABG Base Excess 2.2 H Alexandro Test Positive O2 Delivery Device Vent Oxygen Flow Rate 80% Vent Mode A/c Vent Rate 12 Mechanical Rate Yes PEEP 8.0 Pressure Support Vent 500 Sodium Potassium Chloride Carbon Dioxide Anion Gap BUN Creatinine Creat Clearance w eGFR POC Glucometer Random Glucose Calcium Magnesium Total Bilirubin 0.9 Direct Bilirubin 0.7 H AST 166 H ALT 98 H Alkaline Phosphatase 365 H Total Protein 4.7 L Albumin 0.9 L Active Medications Generic Name Dose Route Start Last Admin Trade Name Freq PRN Reason Stop Dose Admin Acetaminophen 650 mg 10/26/16 19:53 Tylenol Suppository - [place] Q6H PRN FEVER OR PAIN Aspirin 81 mg 10/27/16 10:00 10/28/16 09:20 Asa - PO 81 mg DAILY [facility] Administration Atorvastatin Calcium 40 mg 10/26/16 22:00 10/28/16 21:39 Lipitor - PO 40 mg HS [facility] Administration Chlorhexidine Gluconate 15 ml 10/26/16 22:00 10/28/16 21:39 Peridex - MM 15 ml BID [facility] Administration Chlorhexidine Gluconate 1 applic 10/26/16 22:00 10/28/16 21:39 Hibiclens For Decolonization - TP 1 applic HS [facility] Administration Heparin Sodium (Porcine) 5,000 unit 10/26/16 22:00 10/29/16 05:52 Heparin - SQ 5,000 unit TID [facility] Administration Imipenem/Cilastatin Sodium 500 100 mls @ 100 mls/hr 10/26/16 21:00 10/29/16 03: 01 mg/ Sodium Chloride IVPB 100 mls/hr Q6H-IV [facility] Administration Protocol Pantoprazole Sodium 100 mls @ 200 mls/hr 10/27/16 10:00 10/28/16 09:20 Protonix 40mg Ivpb (Pre-Docked) IVPB 200 mls/hr DAILY [facility] Administration Propofol 100 mls @ 2.424 mls/hr 10/26/16 19:53 10/28/16 19:00 Diprivan - IVPB Not Given TITR [facility] Protocol 5 MCG/KG/MIN Potassium Chloride/Dextrose/Sod Cl 1,000 mls @ 100 mls/hr 10/27/16 12:15 15:27 D5-1/2ns+10 Meq Kcl - IV 100 mls/hr ASDIR [facility] Administration Insulin Aspart 1 vial 10/27/16 00:00 10/29/16 05:53 Novolog Vial Sliding Scale - SQ Not Given Q6HPO [facility] Protocol Insulin Detemir 10 units 10/27/16 07:00 10/29/16 06:29 Levemir Vial SQ Not Given BIDI [facility] Metoprolol Tartrate 25 mg 10/26/16 22:00 10/29/16 05:52 Lopressor - PO 25 mg TID [facility] Administration Metoprolol Tartrate 5 mg 10/26/16 19:53 Lopressor Injection - IVPUSH Q6H PRN HYPERTENSION ASSESSMENT/PLAN: 86 year old male from [facility] with PMH of HTN, HLD, CAD s/p bare metal stent, afib, L atrial lipoma, latent TB, Alzheimer's dementia and DM who was recently discharged for Influenza A and treated with Tamiflu 10/11/16 who presents to the ER via EMS for worsening dypsnea and confusion. Sever sepsis 2/2 HCAP, WBC trend down to 18K, Febrile PCN allergy noted, Acute cholecystitits on US, no dilation or obstruction noted will continue antibiotic, not candidate fro surgery, cont Imipenem day #8. acute cholecystitits: elevated alk phos, AST/ALT stable -monitor LFTs trend, if no other etiology found -hold statin Acute hypoxic respiratory failure- CXR read with b/l lower lobe infiltrate, PNA vs pulmonary edema vs aspiration pneumonia Patient currently mechanically ventilated - patient difficult to to ween, start spontaneous breathing trials as tolerated when mental status improves minimize sedation to assess mental status Taper FI O2, keep O2 >90% keep trach dressing and neck tie to avoid trach dislodgement DKA resolved Troponins - Demand Ischemia 2/2 Sepsis echo here with severe dec lvef- trend troponins, echo shows EF of 29.6%, left ventricular systolic function severely reduced. Left atrium borderline dilated. RV mildly dilated. RV size moderately reduced. None acute wall TX stemi Dementia is relative contraindication to thrombolysis cont metoprolol 12.5 and will watch for hypotension hold statin, beta blockers, and ASA JULIET, resolved prerenal azotemia 2/2 sepsis monitor urine output and creatinine free water feeds Dementia: respond to verbal stimuli opens eye, non verbal, no track with eye, not follow command As per medical records, baseline verbal and AOx1 currently cannot assess, sedated and intubated minimize sedation to assess mental status HTN as per cardiac, Lopressor given if BP <120/80, hold antihypertensives Hypernatremea continue free water NGT FEN tube feed. free water per NG tube replete electrolytes as needed, keep mag >2.0, replete phosphorus DVT prophylaxis on heparin 5,000 units SQ TID GI prophylaxis - protonix Dispo: can transfer to [address] [place] [address] type - Emergency Visit Emergency Visit: Yes ED Registration Date: 10/15/16 Care time: The patient presented to the Emergency Department on the above date and was hospitalized for further evaluation of their emergent condition. - New Patient This patient is new to me today: No - Critical Care Critical Care patient: Yes Total Critical Care Time (in minutes): 42 Critical Care Statement: The care of this patient involved high complexity decision making to prevent further life threatening deterioration of the patient 's condition and/or to evalute & treat vital organ system(s) failure or risk of failure.
--- NOTE | 2016-10-29 08:31 | PN ---
Progress Note (short form) - Note Progress Note: Subjective Patient seen and examined in ICU. Opens eyes on calling name. Continue to have low grade fever. All follow ups noted and appreciated. Objective Last Vital Signs Temp Pulse Resp BP Pulse Ox 100.4 F H 77 19 132/84 99 10/29/16 06:00 10/29/16 09:23 10/29/16 09:24 10/29/16 06:00 10/29/16 09:24 CBC, BMP 10/28/16 05:15 10/29/16 05:15 Laboratory Results - last 24 hr 10/28/16 10/28/16 10/28/16 06:00 09:45 09:45 INR Puncture Site ABG pH ABG pCO2 at Pt Temp ABG pO2 at Pt Temp ABG HCO3 ABG O2 Sat (Measured) ABG O2 Content ABG Base Excess Alexandro Test O2 Delivery Device Oxygen Flow Rate Vent Mode Vent Rate Mechanical Rate PEEP Pressure Support Vent Sodium Potassium Chloride Carbon Dioxide Anion Gap BUN Creatinine Creat Clearance w eGFR POC Glucometer Random Glucose Calcium Magnesium 2.1 D Cancelled Total Bilirubin Cancelled Direct Bilirubin 0.8 H Cancelled AST Cancelled ALT Cancelled Alkaline Phosphatase Cancelled Total Protein Cancelled Albumin Cancelled 10/28/16 10/28/16 10/28/16 11:05 16:48 16:52 INR Puncture Site ABG pH ABG pCO2 at Pt Temp ABG pO2 at Pt Temp ABG HCO3 ABG O2 Sat (Measured) ABG O2 Content ABG Base Excess Alexandro Test O2 Delivery Device Oxygen Flow Rate Vent Mode Vent Rate Mechanical Rate PEEP Pressure Support Vent Sodium Potassium Chloride Carbon Dioxide Anion Gap BUN Creatinine Creat Clearance w eGFR POC Glucometer 142.10215 124.78795 161.32430 Random Glucose Calcium Magnesium Total Bilirubin Direct Bilirubin AST ALT Alkaline Phosphatase Total Protein Albumin 10/28/16 10/29/16 10/29/16 23:25 05:15 05:15 INR Puncture Site ABG pH ABG pCO2 at Pt Temp ABG pO2 at Pt Temp ABG HCO3 ABG O2 Sat (Measured) ABG O2 Content ABG Base Excess Alexandro Test O2 Delivery Device Oxygen Flow Rate Vent Mode Vent Rate Mechanical Rate PEEP Pressure Support Vent Sodium 139 Potassium 4.0 Chloride 103 Carbon Dioxide 26 Anion Gap 10 BUN 15 D Creatinine 0.4 L Creat Clearance w eGFR > 60 POC Glucometer 115.16176 Random Glucose 73 L Calcium 7.6 L Magnesium 1.9 Total Bilirubin 0.9 0.9 Direct Bilirubin 0.7 H AST 163 H D 166 H ALT 98 H D 98 H Alkaline Phosphatase 353 H 365 H Total Protein 4.8 L 4.7 L Albumin 0.9 L 0.9 L 10/29/16 10/29/16 05:15 07:00 INR 1.24 H Puncture Site Left radial ABG pH 7.45 ABG pCO2 at Pt Temp 37.9 ABG pO2 at Pt Temp 97.8 D ABG HCO3 25.8 ABG O2 Sat (Measured) 97.7 ABG O2 Content 15.5 ABG Base Excess 2.2 H Alexandro Test Positive O2 Delivery Device Vent Oxygen Flow Rate 80% Vent Mode A/c Vent Rate 12 Mechanical Rate Yes PEEP 8.0 Pressure Support Vent 500 Sodium Potassium Chloride Carbon Dioxide Anion Gap BUN Creatinine Creat Clearance w eGFR POC Glucometer Random Glucose Calcium Magnesium Total Bilirubin Direct Bilirubin AST ALT Alkaline Phosphatase Total Protein Albumin Physical Exam Constitutional: Yes: S/p trach. Cardiovascular: Yes: Regular Rate and Rhythm Respiratory: Yes: Diminished at bases Gastrointestinal: Yes: soft / s/p g tube-- binder in place. Assessment and Plan - continue abx - tapered off seadtion - weaning as tolerated - continue present care - feedings on hold - US to be done today. - Further recommendation for acute cholecystitis after US. - may need drainage of gallbladder if cystic duct is obstructed. - discussed with ICU team today - Pt remains critically ill. - Will follow --cc time - 30 min Documentation prepared by Zehra Bridges, acting as a anesthesiology medical doctor for Regina Jones MD. <Zehra Bridges - Last Filed: 10/29/16 10:13> Problem List - Problems (1) Acute respiratory failure with hypoxia Code(s): J96.01 - ACUTE RESPIRATORY FAILURE WITH HYPOXIA (2) Cerebrovascular disease Code(s): I67.9 - CEREBROVASCULAR DISEASE, UNSPECIFIED (3) Cerebrovascular small vessel disease Code(s): I67.9 - CEREBROVASCULAR DISEASE, UNSPECIFIED (4) Healthcare-associated pneumonia Code(s): J18.9 - PNEUMONIA, UNSPECIFIED ORGANISM (5) Sepsis Code(s): A41.9 - SEPSIS, UNSPECIFIED ORGANISM Qualifiers: Sepsis type: sepsis due to unspecified organism Qualified Code(s): A41.9 - Sepsis, unspecified organism (6) Alzheimer disease Code(s): G30.9 - ALZHEIMER'S DISEASE, UNSPECIFIED Qualifiers: Alzheimer's disease onset: early-onset Dementia behavioral disturbance : without behavioral disturbance Qualified Code(s): G30.0 - Alzheimer's disease with early onset; F02.81 - Dementia in other diseases classified elsewhere with behavioral disturbance (7) Lactic acid blood increased Code(s): R79.89 - OTHER SPECIFIED ABNORMAL FINDINGS OF BLOOD CHEMISTRY (8) Cholecystitis Code(s): K81.9 - CHOLECYSTITIS, UNSPECIFIED <Regina Jones - Last Filed: 10/29/16 08:31> - Problems (1) Acute respiratory failure with hypoxia Code(s): J96.01 - ACUTE RESPIRATORY FAILURE WITH HYPOXIA (2) Sepsis Code(s): A41.9 - SEPSIS, UNSPECIFIED ORGANISM Qualifiers: Sepsis type: sepsis due to unspecified organism Qualified Code(s): A41.9 - Sepsis, unspecified organism (3) Septic shock Code(s): A41.9 - SEPSIS, UNSPECIFIED ORGANISM R65.21 - SEVERE SEPSIS WITH SEPTIC SHOCK (4) Alzheimer disease Code(s): G30.9 - ALZHEIMER'S DISEASE, UNSPECIFIED Qualifiers: Alzheimer's disease onset: early-onset Dementia behavioral disturbance : without behavioral disturbance Qualified Code(s): G30.0 - Alzheimer's disease with early onset; F02.81 - Dementia in other diseases classified elsewhere with behavioral disturbance (5) Influenza A Code(s): J10.1 - FLU DUE TO OTH IDENT INFLUENZA VIRUS W OTH RESP MANIFEST (6) Lactic acid blood increased Code(s): R79.89 - OTHER SPECIFIED ABNORMAL FINDINGS OF BLOOD CHEMISTRY <Zehra Bridges - Last Filed: 10/29/16 10:13>
--- NOTE | 2016-10-29 09:31 | PN ---
Progress Note (short form) - Note Progress Note: opens eyes, does not follow commands, off sedation trach Vital Signs Period Temp Pulse Resp BP Sys/Machado Pulse Ox Last 24 Hr 100.1 F-100.7 F 76-88 14-25 124-144/65-84 90-100 cor-rrr lungs decreased bs at bases abd soft,binder in place ext no edema CBC, BMP 10/28/16 05:15 10/29/16 05:15 Laboratory Tests 10/28/16 10/29/16 06:00 05:15 Total Bilirubin 1.1 H Direct Bilirubin 0.7 H AST 223 H 166 H ALT 126 H 98 H Alkaline Phosphatase 334 H 365 H a/p day #8 imipenem cholycystitis resp failure ?IR drainage of gallbladder continue antibiotics for ultrasound of gallbladder today
[2016-10-29] MEDS: ASPIRIN 81 MG CHEWABLE TABLETS PO SCH (10:00)
[2016-10-29] MEDS: PANTOPRAZOLE SODIUM 100 ML IVPB SCH (10:00)
[2016-10-29] MEDS: CHLORHEXIDINE GLUCONATE 0.12% 15ML CUP MM SCH ×2 (10:00→21:11)
--- NOTE | 2016-10-29 10:09 | PN ---
Progress Note, Physician Chief Complaint: RI, resp failure History of Present Illness: trach to vent; opens eyes without focusing on examiner, not communicative - Current Medication List Current Medications: Active Medications Acetaminophen (Tylenol Suppository -) 650 mg VA Q6H PRN PRN Reason: FEVER OR PAIN Aspirin (Asa -) 81 mg PO DAILY [facility] Last Admin: 10/28/16 09:20 Dose: 81 mg Atorvastatin Calcium (Lipitor -) 40 mg PO HS [facility] Last Admin: 10/28/16 21:39 Dose: 40 mg Chlorhexidine Gluconate (Peridex -) 15 ml MM BID [facility] Last Admin: 10/28/16 21:39 Dose: 15 ml Chlorhexidine Gluconate (Hibiclens For Decolonization -) 1 applic TP HS [facility] Last Admin: 10/28/16 21:39 Dose: 1 applic Heparin Sodium (Porcine) (Heparin -) 5,000 unit SQ TID [facility] Last Admin: 10/29/16 05:52 Dose: 5,000 unit Imipenem/Cilastatin Sodium 500 (mg/ Sodium Chloride) 100 mls @ 100 mls/hr IVPB Q6H-IV KARLOS PRN Reason: Protocol Last Admin: 10/29/16 03:01 Dose: 100 mls/hr Pantoprazole Sodium (Protonix 40mg Ivpb (Pre-Docked)) 100 mls @ 200 mls/hr IVPB DAILY [facility] Last Admin: 10/28/16 09:20 Dose: 200 mls/hr Propofol (Diprivan -) 100 mls @ 2.424 mls/hr IVPB TITR KARLOS; 5 MCG/KG/MIN PRN Reason: Protocol Last Admin: 10/28/16 19:00 Dose: Not Given Potassium Chloride/Dextrose/Sod Cl (D5-1/2ns+10 Meq Kcl -) 1,000 mls @ 100 mls/ hr IV ASDIR [facility] Last Admin: 10/28/16 15:27 Dose: 100 mls/hr Insulin Aspart (Novolog Vial Sliding Scale -) 1 vial SQ Q6HPO [facility] PRN Reason: Protocol Last Admin: 10/29/16 05:53 Dose: Not Given Insulin Detemir (Levemir Vial) 10 units SQ BIDI [facility] Last Admin: 10/29/16 06:29 Dose: Not Given Metoprolol Tartrate (Lopressor -) 25 mg PO TID [facility] Last Admin: 10/29/16 05:52 Dose: 25 mg Metoprolol Tartrate (Lopressor Injection -) 5 mg IVPUSH Q6H PRN PRN Reason: HYPERTENSION - Objective Vital Signs: Vital Signs Temperature 100.4 F H 10/29/16 06:00 Pulse Rate 77 10/29/16 09:23 Respiratory Rate 19 10/29/16 09:24 Blood Pressure 132/84 10/29/16 06:00 O2 Sat by Pulse Oximetry (%) 99 10/29/16 09:24 Constitutional: Yes: Well Nourished, No Distress, Calm Cardiovascular: Yes: Regular Rate and Rhythm, S1, S2. No: JVD, Gallop, Murmur Respiratory: Yes: Regular, CTA Bilaterally (anteriorly). No: Accessory Muscle Use, Rales, Wheezes Extremities: No: Cold Edema: Yes (1+ pedal (SCDs)) Neurological: No: Alert, Oriented, Seizure Psychiatric: No: Agitated Labs: CBC, BMP 10/28/16 05:15 10/29/16 05:15 INR, PTT INR 1.24 (0.82-1.09) H 10/29/16 05:15 - ....Imaging EKG: Other (tele: NSR, no VT) Assessment/Plan cxr: worsened congestion echo 10/2016: sev dilated lv, sev dec lvef, rv mod dilated/mod dec rv fcn, reina, mild mr Assessment/Plan HTN - becomes hypertensive when tachypneic or off sedation, but pressures tend to drop again when sedation is resumed. - currently bp acceptable, will uptitrate metoprolol acute hypoxic resp failure, multifactorial: PNA, recent influenza dx, acute syst chf: -s/p trach, vent support per pulm -abx per ID, crit care -echo here showing biventricular failure, suspect chronic (prior hx details unknown to us)--will need f/u echo later once recovers from acute illness -cont bb for now, consider kathie-i later wif bp stable -chf likely minor contributor to resp failure here, + congested cxr--dosing lasix daily prn based on exam and cxr - 10/25: worsening edema, s/p lasix 40 mg IV x 1. - 10/27: no edema; cxr unchanged (pulm edema vs infiltrates)--re-dose lasix today -10/28: cxr no change, mild periph edema; ? 3rd spacing (albumin very low)-- defer lasix today -10/29: same, cont prn lasix sepsis -initially with PNA -defervesced, then spiked again to 101.9 -rpt cx's pending, r/o vent associated PNA--infectious w/u and tx per ID/crit care prior h/o CAD, + elevated troponin here--NSTEMI: -initial trop 3.4, trended down. -florid sepsis picture at that time: ? sepsis direct myocardial injury, vs Type II RI from hypoxia/tachycardia vs Type I RI (ACS) -ECG with ischemic changes (TWIs anteriorly)--also could all be secondary to above -echo here with severe dec lvef, no RWMA described -treated as nstemi here with hep gtt initially -cont ASA, statin and bb -plavix deferred given advanced age, tenuous clinical status/serious comorbid processes -further ischemic eval based on clinical course NSVT: -intermittent recurrent brief runs on tele -replete K/Mg prn (usual targets) -cont metopr 25 tid hypoalbuminemia/poor nutrition: -per crit care LFTs: -elevated alk phos, AST/ALT -rx'd atorva here, ? new rx [email or web address] -monitor LFTs trend, if no other etiology found (abx? propafol?) will hold statin est crit care time 35min
--- NOTE | 2016-10-29 12:32 | PN ---
Progress Note (short form) - Note Progress Note: seen and examined. intubated on vent supp. off sedation. low grad fever. rrr (st). b/l rhonchi. trach intact. no leaks. maintaining good saturation and ventilation. +bs, soft, nd. +edema. no c/c. CBC, BMP 10/28/16 05:15 10/29/16 05:15 Vital Signs (72 hours) 10/26/16 10/26/16 10/26/16 14:00 14:10 15:00 Temperature 101.9 F H Pulse Rate 102 H 108 H Respiratory 24 20 27 H Rate Blood Pressure 147/79 140/89 O2 Sat by Pulse Oximetry (%) 10/26/16 10/26/16 10/26/16 16:00 16:20 18:00 Temperature 101 F H Pulse Rate 96 H 95 H Respiratory 26 H 21 20 Rate Blood Pressure 115/56 116/57 O2 Sat by Pulse Oximetry (%) 10/26/16 10/26/16 10/26/16 19:04 20:00 21:00 Temperature Pulse Rate 96 H Respiratory 22 93 H 20 Rate Blood Pressure 122/63 O2 Sat by Pulse 90 L Oximetry (%) 10/26/16 10/26/16 10/27/16 22:00 22:02 00:00 Temperature 100.9 F H Pulse Rate 90 92 H Respiratory 18 20 20 Rate Blood Pressure 115/62 113/60 O2 Sat by Pulse 90 L Oximetry (%) 10/27/16 10/27/16 10/27/16 00:58 02:00 03:32 Temperature 100.8 F H Pulse Rate 96 H Respiratory 23 22 22 Rate Blood Pressure 112/70 O2 Sat by Pulse Oximetry (%) 10/27/16 10/27/16 10/27/16 04:00 06:00 06:24 Temperature 100 F H Pulse Rate 91 H 90 Respiratory 20 30 H 18 Rate Blood Pressure 124/65 135/65 O2 Sat by Pulse Oximetry (%) 10/27/16 10/27/16 10/27/16 08:00 09:00 09:50 Temperature 98.5 F Pulse Rate 98 H 97 H Respiratory 28 H 27 H Rate Blood Pressure 147/74 126/66 O2 Sat by Pulse 91 L 88 L Oximetry (%) 10/27/16 10/27/16 10/27/16 09:56 10:00 12:00 Temperature Pulse Rate 97 H 97 H Respiratory 22 28 H 22 Rate Blood Pressure 134/70 O2 Sat by Pulse 96 88 L Oximetry (%) 10/27/16 10/27/16 10/27/16 12:06 14:00 15:07 Temperature 98.7 F Pulse Rate 93 H Respiratory 20 20 26 H Rate Blood Pressure 116/63 O2 Sat by Pulse Oximetry (%) 10/27/16 10/27/16 10/27/16 16:00 17:12 17:38 Temperature Pulse Rate 97 H Respiratory 26 H 24 26 H Rate Blood Pressure 134/69 O2 Sat by Pulse 93 L Oximetry (%) 10/27/16 10/27/16 10/27/16 17:52 19:36 20:00 Temperature 100.7 F H Pulse Rate 97 H 95 H Respiratory 21 15 17 Rate Blood Pressure 125/59 127/58 O2 Sat by Pulse Oximetry (%) 10/27/16 10/27/16 10/27/16 21:00 22:00 22:24 Temperature 100.5 F H Pulse Rate 90 91 H Respiratory 17 18 20 Rate Blood Pressure 126/62 O2 Sat by Pulse 99 99 99 Oximetry (%) 10/28/16 10/28/16 10/28/16 00:00 00:52 02:00 Temperature 100.2 F H 100.2 F H Pulse Rate 80 81 Respiratory 18 16 18 Rate Blood Pressure 115/56 120/56 O2 Sat by Pulse Oximetry (%) 10/28/16 10/28/16 10/28/16 03:14 04:00 05:22 Temperature 100.3 F H Pulse Rate 79 Respiratory 16 17 19 Rate Blood Pressure 112/50 O2 Sat by Pulse Oximetry (%) 10/28/16 10/28/16 10/28/16 06:00 07:21 08:00 Temperature 99.9 F H Pulse Rate 79 74 Respiratory 16 17 16 Rate Blood Pressure 120/54 126/59 O2 Sat by Pulse 100 Oximetry (%) 10/28/16 10/28/16 10/28/16 09:00 10:00 10:05 Temperature 100.1 F H Pulse Rate 84 76 Respiratory 15 22 15 Rate Blood Pressure 124/68 O2 Sat by Pulse 98 90 L 98 Oximetry (%) 10/28/16 10/28/16 10/28/16 12:00 12:07 13:33 Temperature 100.4 F H Pulse Rate 86 88 Respiratory 16 19 16 Rate Blood Pressure 140/66 139/65 O2 Sat by Pulse Oximetry (%) 10/28/16 10/28/16 10/28/16 14:55 17:47 18:00 Temperature 100.4 F H Pulse Rate 81 Respiratory 20 18 22 Rate Blood Pressure 140/70 O2 Sat by Pulse Oximetry (%) 10/28/16 10/28/16 10/28/16 20:00 20:03 21:00 Temperature 100.7 F H Pulse Rate 85 Respiratory 25 H 20 14 Rate Blood Pressure 141/70 O2 Sat by Pulse 100 Oximetry (%) 10/28/16 10/28/16 10/29/16 22:00 22:09 00:00 Temperature 100.5 F H 100.5 F H Pulse Rate 82 83 Respiratory 14 18 19 Rate Blood Pressure 144/70 138/67 O2 Sat by Pulse 100 Oximetry (%) 10/29/16 10/29/16 10/29/16 00:01 02:00 03:00 Temperature 100.7 F H Pulse Rate 82 Respiratory 18 16 14 Rate Blood Pressure 140/68 O2 Sat by Pulse Oximetry (%) 10/29/16 10/29/16 10/29/16 04:00 06:00 09:23 Temperature 100.4 F H Pulse Rate 84 86 77 Respiratory 16 18 Rate Blood Pressure 140/65 132/84 O2 Sat by Pulse 100 99 Oximetry (%) 10/29/16 10/29/16 10/29/16 09:24 10:00 11:46 Temperature Pulse Rate 81 Respiratory 19 16 21 Rate Blood Pressure 119/64 O2 Sat by Pulse 99 Oximetry (%) 10/29/16 12:00 Temperature 100 F H Pulse Rate 83 Respiratory 16 Rate Blood Pressure 142/60 O2 Sat by Pulse Oximetry (%) a/p 86 yo, m, pna, resp failure, s/p trach. had small air leak around trach secondary to position of trach in intrathoracic trachea. currently no leak and well functioning trach. maintaining good sat and ventilation. 1. cont excellent icu care. wean vent as ceci. 2. abx 3. trach care. suture removed. keep trach dressing and neck tie to avoid trach dislodgement. 4. will follow Problem List - Problems (1) Acute respiratory failure with hypoxia Code(s): J96.01 - ACUTE RESPIRATORY FAILURE WITH HYPOXIA
--- NOTE | 2016-10-29 14:13 | PN ---
Teaching Attending Note Name of Resident: Madeline Mayo ATTENDING PHYSICIAN STATEMENT I saw and evaluated the patient. I reviewed the resident's note and discussed the case with the resident. I agree with the resident's findings and plan as documented. SUBJECTIVE: Patient seen and examined in the ICU. Remians on vent support. Workup indicating acute cholecystitis. Low grade temps. OBJECTIVE: Intake & Output 10/26/16 10/27/16 10/28/16 10/29/16 23:59 23:59 23:59 23:59 Intake Total 1715 2687.0 1850 850 Output Total 2400 1700 600 350 Balance -685 987.0 1250 500 Weight 184 lb 1.376 oz 186 lb 1.122 oz 187 lb 13.341 oz 184 lb 11.958 oz Last Vital Signs Temp Pulse Resp BP Pulse Ox 100 F H 83 16 142/60 99 10/29/16 12:00 10/29/16 12:00 10/29/16 12:00 10/29/16 12:00 10/29/16 09:24 Active Medications Acetaminophen (Tylenol Suppository -) 650 mg ME Q6H PRN PRN Reason: FEVER OR PAIN Aspirin (Asa -) 81 mg PO DAILY [facility] Last Admin: 10/29/16 10:00 Dose: Not Given Atorvastatin Calcium (Lipitor -) 40 mg PO HS [facility] Last Admin: 10/28/16 21:39 Dose: 40 mg Chlorhexidine Gluconate (Peridex -) 15 ml MM BID [facility] Last Admin: 10/29/16 10:00 Dose: 15 ml Chlorhexidine Gluconate (Hibiclens For Decolonization -) 1 applic TP HS [facility] Last Admin: 10/28/16 21:39 Dose: 1 applic Heparin Sodium (Porcine) (Heparin -) 5,000 unit SQ TID [facility] Last Admin: 10/29/16 05:52 Dose: 5,000 unit Imipenem/Cilastatin Sodium 500 (mg/ Sodium Chloride) 100 mls @ 100 mls/hr IVPB Q6H-IV KARLOS PRN Reason: Protocol Last Admin: 10/29/16 09:00 Dose: 100 mls/hr Pantoprazole Sodium (Protonix 40mg Ivpb (Pre-Docked)) 100 mls @ 200 mls/hr IVPB DAILY [facility] Last Admin: 10/29/16 10:00 Dose: 200 mls/hr Propofol (Diprivan -) 100 mls @ 2.424 mls/hr IVPB TITR KARLOS; 5 MCG/KG/MIN PRN Reason: Protocol Last Admin: 10/28/16 19:00 Dose: Not Given Potassium Chloride/Dextrose/Sod Cl (D5-1/2ns+10 Meq Kcl -) 1,000 mls @ 100 mls/ hr IV ASDIR [facility] Last Admin: 10/28/16 15:27 Dose: 100 mls/hr Insulin Aspart (Novolog Vial Sliding Scale -) 1 vial SQ Q6HPO [facility] PRN Reason: Protocol Last Admin: 10/29/16 12:18 Dose: Not Given Insulin Detemir (Levemir Vial) 10 units SQ BIDI [facility] Last Admin: 10/29/16 06:29 Dose: Not Given Metoprolol Tartrate (Lopressor -) 25 mg PO TID [facility] Last Admin: 10/29/16 05:52 Dose: 25 mg Metoprolol Tartrate (Lopressor Injection -) 5 mg IVPUSH Q6H PRN PRN Reason: HYPERTENSION Gen: trached, poorly responsive Heart: RRR Lung: scattered rhonchi Abd: soft, nontender Ext: + edema Laboratory Results - last 24 hr 10/28/16 10/28/16 10/28/16 16:48 16:52 23:25 INR Puncture Site ABG pH ABG pCO2 at Pt Temp ABG pO2 at Pt Temp ABG HCO3 ABG O2 Sat (Measured) ABG O2 Content ABG Base Excess Alexandro Test O2 Delivery Device Oxygen Flow Rate Vent Mode Vent Rate Mechanical Rate PEEP Pressure Support Vent Sodium Potassium Chloride Carbon Dioxide Anion Gap BUN Creatinine Creat Clearance w eGFR POC Glucometer 124.26431 161.51460 115.04121 Random Glucose Calcium Magnesium Total Bilirubin Direct Bilirubin AST ALT Alkaline Phosphatase Total Protein Albumin 10/29/16 10/29/16 10/29/16 05:15 05:15 05:15 INR 1.24 H Puncture Site ABG pH ABG pCO2 at Pt Temp ABG pO2 at Pt Temp ABG HCO3 ABG O2 Sat (Measured) ABG O2 Content ABG Base Excess Alexandro Test O2 Delivery Device Oxygen Flow Rate Vent Mode Vent Rate Mechanical Rate PEEP Pressure Support Vent Sodium 139 Potassium 4.0 Chloride 103 Carbon Dioxide 26 Anion Gap 10 BUN 15 D Creatinine 0.4 L Creat Clearance w eGFR > 60 POC Glucometer Random Glucose 73 L Calcium 7.6 L Magnesium 1.9 Total Bilirubin 0.9 0.9 Direct Bilirubin 0.7 H AST 163 H D 166 H ALT 98 H D 98 H Alkaline Phosphatase 353 H 365 H Total Protein 4.8 L 4.7 L Albumin 0.9 L 0.9 L 10/29/16 10/29/16 10/29/16 05:18 07:00 11:20 INR Puncture Site Left radial ABG pH 7.45 ABG pCO2 at Pt Temp 37.9 ABG pO2 at Pt Temp 97.8 D ABG HCO3 25.8 ABG O2 Sat (Measured) 97.7 ABG O2 Content 15.5 ABG Base Excess 2.2 H Alexandro Test Positive O2 Delivery Device Vent Oxygen Flow Rate 80% Vent Mode A/c Vent Rate 12 Mechanical Rate Yes PEEP 8.0 Pressure Support Vent 500 Sodium Potassium Chloride Carbon Dioxide Anion Gap BUN Creatinine Creat Clearance w eGFR POC Glucometer 99.03641 111.97153 Random Glucose Calcium Magnesium Total Bilirubin Direct Bilirubin AST ALT Alkaline Phosphatase Total Protein Albumin ASSESSMENT AND PLAN: Acute Hypoxic Respiratory Failure Pneumonia Recent Influenza Severe Sepsis Acute Kidney Injury improving Lactic Acidosis resolved +Troponins - ?Demand Ischemia from Sepsis LV Systolic Heart Failure HTN CAD DM Dementia - IR for possible drainage catheter - ABX per ID - ASA, beta regina - taper Fio2 to keep Spo2 >90% - minimize sedation to assess mental status - spontaneous breathing trials as tolerated - DVT/GI prophylaxis - Eneteral feeds - Vent Unit Critical care time spent in reviewing chart, evaluating patient, and formulating plan : [address] Pruett
[2016-10-29] MEDS ORDERED: PT OWN MED DRAWER 7, Y5N ONE ×2 (20:40→21:57)
[2016-10-29] MEDS ORDERED: ACETAMINOPHEN 650 MG SUPP.RECT PR PRN (21:06)
[2016-10-29] MEDS ORDERED: METOPROLOL TARTRATE 5 MG/5 ML VIAL IVPUSH PRN (21:06)
[2016-10-29] MEDS ORDERED: D5-1/2NS+10 MEQ KCL - 1,000 ML IV SCH (21:06)
[2016-10-29] MEDS ORDERED: PROPOFOL 100 ML IVPB SCH (21:06)
[2016-10-29] MEDS: ATORVASTATIN CA 40 MG TABLET (FP) PO SCH (21:11)
[2016-10-29] MEDS ORDERED: FUROSEMIDE 40 MG/4 ML INJECTABLE VIAL IVPUSH ONE (21:15)
[2016-10-29] MEDS ORDERED: FUROSEMIDE 40 MG/4 ML INJECTABLE VIAL ONE (21:19)
[2016-10-29] MEDS ORDERED: CHLORHEXIDINE GLUCONATE 4% CLEANSER FOR DECOLONIZATION TP SCH (22:00)
[2016-10-30] MEDS: INSULIN SLIDING SCALE (NOVOLOG) 1 VIAL SQ SCH ×4 (01:57→17:28)
[2016-10-30] MEDS: HEPARIN NA (PORCINE) 5,000 UNITS/ML 1ML VIAL SQ SCH ×3 (07:05→23:08)
[2016-10-30] MEDS: METOPROLOL TARTRATE 25 MG TABLET (FP) PO SCH ×3 (07:05→23:08)
[2016-10-30] MEDS: INSULIN DETEMIR 100 UNITS/ML MDV SQ SCH ×2 (07:05→17:29)
[2016-10-30 07:43] LABS: ARTERIAL BLD GAS O2 SATURATION 96.7 % (90-98.9); ARTERIAL BLOOD GAS HCO3 24.9 meq/L (22-26); ARTERIAL BLOOD GAS PO2 87.3 mmHg (68-100); ARTERIAL BLOOD GAS pH 7.42 (7.35-7.45)
[2016-10-30 07:44] LABS: ALLENS TEST POSITIVE; ART PUNCT SITE RIGHT RADIAL; LPM/O2% 60%; MECH. VENT. YES; PT. ON O2? YES; TYPE OF O2 MEC.VENT; VENT RATE 12; VT/PRESS 500
[2016-10-30 08:13] LABS: BASOPHIL 0.4 % (0-2.0); EOSINOPHIL 0.5 % (0-4.5); MCH 26.9 pg (25.7-33.7); MCHC 32.1 g/dl (32.0-35.9); MEAN CELL VOLUME 83.8 fl (80-96); MEAN PLT VOLUME 8.4 fl (7.5-11.1); NEUTROPHILS 91.4 % (42.8-82.8); PLATELET COUNT 371 K/MM3 (134-434); RDW 14.3 % (11.9-15.9); WHITE BLOOD COUNT 15.8 K/mm3 (4.0-10.0)
[2016-10-30 08:38] LABS: ALK PHOS 344 U/L (45-117); ANION GAP 9 (8-16); BILIRUBIN,TOTAL 0.9 mg/dL (0.2-1.0); CALCIUM 7.7 mg/dL (8.5-10.1); CO2 25 mmol/L (21-32); COCKROFT - GAULT 157; CREATININE 0.4 mg/dL (0.7-1.3); GLUCOSE,RANDOM 144 mg/dL (74-106); SGOT/AST 97 U/L (15-37); SGPT/ALT 70 U/L (12-78)
[2016-10-30] MEDS: PANTOPRAZOLE SODIUM 100 ML IVPB SCH (10:18)
[2016-10-30] MEDS: ASPIRIN 81 MG CHEWABLE TABLETS PO SCH (10:19)
[2016-10-30] MEDS: CHLORHEXIDINE GLUCONATE 0.12% 15ML CUP MM SCH ×2 (10:19→23:08)
--- NOTE | 2016-10-30 10:38 | PN ---
Progress Note, Physician - Current Medication List Current Medications: Active Medications Acetaminophen (Tylenol Suppository -) 650 mg SD Q6H PRN PRN Reason: FEVER OR PAIN Aspirin (Asa -) 81 mg PO DAILY [facility] Last Admin: 10/30/16 10:19 Dose: 81 mg Atorvastatin Calcium (Lipitor -) 40 mg PO HS [facility] Last Admin: 10/29/16 21:11 Dose: 40 mg Chlorhexidine Gluconate (Peridex -) 15 ml MM BID [facility] Last Admin: 10/30/16 10:19 Dose: 15 ml Heparin Sodium (Porcine) (Heparin -) 5,000 unit SQ TID [facility] Last Admin: 10/30/16 07:05 Dose: 5,000 unit Pantoprazole Sodium (Protonix 40mg Ivpb (Pre-Docked)) 100 mls @ 200 mls/hr IVPB DAILY [facility] Last Admin: 10/30/16 10:18 Dose: 200 mls/hr Insulin Aspart (Novolog Vial Sliding Scale -) 1 vial SQ Q6HPO [facility] PRN Reason: Protocol Last Admin: 10/30/16 07:05 Dose: Not Given Insulin Detemir (Levemir Vial) 10 units SQ BIDI [facility] Last Admin: 10/30/16 07:05 Dose: 10 units Metoprolol Tartrate (Lopressor -) 25 mg PO TID [facility] Last Admin: 10/30/16 07:05 Dose: 25 mg Metoprolol Tartrate (Lopressor Injection -) 5 mg IVPUSH Q6H PRN PRN Reason: HYPERTENSION - Objective Vital Signs: Vital Signs Temperature 97.4 F L 10/30/16 06:00 Pulse Rate 99 H 10/30/16 06:00 Respiratory Rate 25 H 10/30/16 07:04 Blood Pressure 132/65 10/30/16 06:00 O2 Sat by Pulse Oximetry (%) 95 10/30/16 06:00 Labs: CBC, BMP 10/30/16 06:58 10/30/16 06:58 INR, PTT INR 1.24 (0.82-1.09) H 10/29/16 05:15 Problem List - Problems (1) Encephalopathy acute Code(s): G93.40 - ENCEPHALOPATHY, UNSPECIFIED (2) Cholecystitis with cholelithiasis Code(s): K80.10 - CALCULUS OF GALLBLADDER W CHRONIC CHOLECYST W/O OBSTRUCTION Qualifiers: Cholelithiasis location: gallbladder Cholecystitis acuity: acute Biliary obstruction: without biliary obstruction Qualified Code(s): K80.00 - Calculus of gallbladder with acute cholecystitis without obstruction (3) Respiratory failure Code(s): J96.90 - RESPIRATORY FAILURE, UNSP, UNSP W HYPOXIA OR HYPERCAPNIA Qualifiers: Chronicity: acute Respiratory failure complication: hypoxia Qualified Code(s): J96.01 - Acute respiratory failure with hypoxia (4) Sepsis Code(s): A41.9 - SEPSIS, UNSPECIFIED ORGANISM Qualifiers: Sepsis type: sepsis due to unspecified organism Qualified Code(s): A41.9 - Sepsis, unspecified organism Assessment/Plan Surgery: Unchanged. Abdominal ultrasound is not done. Temp 100.4 Liver enzymes elevated with normal bilirubin. Continue antibiotics, Gallbladder sonogram shows acute cholecystitis. I have discussed with Dr. De La Fuente for drainage of the gallbladder. Will be done tomorrow.
--- NOTE | 2016-10-30 10:53 | PN ---
Progress Note, Physician Chief Complaint: s/p trach and peg vent dependent low grade fevers not responding today - Current Medication List Current Medications: Active Medications Acetaminophen (Tylenol Suppository -) 650 mg [place] Q6H PRN PRN Reason: FEVER OR PAIN Aspirin (Asa -) 81 mg PO DAILY [facility] Last Admin: 10/30/16 10:19 Dose: 81 mg Atorvastatin Calcium (Lipitor -) 40 mg PO HS [facility] Last Admin: 10/29/16 21:11 Dose: 40 mg Chlorhexidine Gluconate (Peridex -) 15 ml MM BID [facility] Last Admin: 10/30/16 10:19 Dose: 15 ml Heparin Sodium (Porcine) (Heparin -) 5,000 unit SQ TID [facility] Last Admin: 10/30/16 07:05 Dose: 5,000 unit Pantoprazole Sodium (Protonix 40mg Ivpb (Pre-Docked)) 100 mls @ 200 mls/hr IVPB DAILY [facility] Last Admin: 10/30/16 10:18 Dose: 200 mls/hr Insulin Aspart (Novolog Vial Sliding Scale -) 1 vial SQ Q6HPO [facility] PRN Reason: Protocol Last Admin: 10/30/16 07:05 Dose: Not Given Insulin Detemir (Levemir Vial) 10 units SQ BIDI [facility] Last Admin: 10/30/16 07:05 Dose: 10 units Metoprolol Tartrate (Lopressor -) 25 mg PO TID [facility] Last Admin: 10/30/16 07:05 Dose: 25 mg Metoprolol Tartrate (Lopressor Injection -) 5 mg IVPUSH Q6H PRN PRN Reason: HYPERTENSION - Objective Vital Signs: Vital Signs Temperature 97.4 F L 10/30/16 06:00 Pulse Rate 99 H 10/30/16 06:00 Respiratory Rate 25 H 10/30/16 07:04 Blood Pressure 132/65 10/30/16 06:00 O2 Sat by Pulse Oximetry (%) 95 10/30/16 06:00 Constitutional: Yes: No Distress, Other (trach) Cardiovascular: Yes: Regular Rate and Rhythm Respiratory: Yes: Diminished Gastrointestinal: Yes: Normal Bowel Sounds, Soft, Other (GT+). No: Distention, Tenderness Edema: Yes Labs: CBC, BMP 10/30/16 06:58 10/30/16 06:58 INR, PTT INR 1.24 (0.82-1.09) H 10/29/16 05:15 Problem List - Problems (1) Acute respiratory failure with hypoxia Code(s): J96.01 - ACUTE RESPIRATORY FAILURE WITH HYPOXIA (2) Sepsis Code(s): A41.9 - SEPSIS, UNSPECIFIED ORGANISM Qualifiers: Sepsis type: sepsis due to unspecified organism Qualified Code(s): A41.9 - Sepsis, unspecified organism (3) Alzheimer disease Code(s): G30.9 - ALZHEIMER'S DISEASE, UNSPECIFIED Qualifiers: Alzheimer's disease onset: early-onset Dementia behavioral disturbance : without behavioral disturbance Qualified Code(s): G30.0 - Alzheimer's disease with early onset; F02.81 - Dementia in other diseases classified elsewhere with behavioral disturbance (4) Healthcare-associated pneumonia Code(s): J18.9 - PNEUMONIA, UNSPECIFIED ORGANISM (5) Cholecystitis Code(s): K81.9 - CHOLECYSTITIS, UNSPECIFIED (6) Encephalopathy acute Code(s): G93.40 - ENCEPHALOPATHY, UNSPECIFIED (7) Respiratory failure Code(s): J96.90 - RESPIRATORY FAILURE, UNSP, UNSP W HYPOXIA OR HYPERCAPNIA Qualifiers: Chronicity: acute Respiratory failure complication: hypoxia Qualified Code(s): J96.01 - Acute respiratory failure with hypoxia Assessment/Plan PLAN unable to wean IV antibiotics completed nebs surgical follow up noted Will get gallbladder drained tomorrow by IR supportive care DVT prophylaxis-- Heparin
--- NOTE | 2016-10-30 11:57 | PN ---
Progress Note (short form) - Note Progress Note: PULMONARY Poorly responsive off sedation. Low grade fevers. Vented on volume assist control with 60% FiO2 and PEEP 8. Last Vital Signs Temp Pulse Resp BP Pulse Ox 97.4 F L 99 H 25 H 132/65 95 10/30/16 06:00 10/30/16 06:00 10/30/16 07:04 10/30/16 06:00 10/30/16 06:00 Gen: vented, poorly responsive Heart: tachycardic, regular Lung: scattered rhonchi Abd: soft, nontender Ext: + edema CBC, BMP 10/30/16 06:58 10/30/16 06:58 Active Medications Acetaminophen (Tylenol Suppository -) 650 mg [place] Q6H PRN PRN Reason: FEVER OR PAIN Aspirin (Asa -) 81 mg PO DAILY [facility] Last Admin: 10/30/16 10:19 Dose: 81 mg Atorvastatin Calcium (Lipitor -) 40 mg PO HS [facility] Last Admin: 10/29/16 21:11 Dose: 40 mg Chlorhexidine Gluconate (Peridex -) 15 ml MM BID [facility] Last Admin: 10/30/16 10:19 Dose: 15 ml Heparin Sodium (Porcine) (Heparin -) 5,000 unit SQ TID [facility] Last Admin: 10/30/16 07:05 Dose: 5,000 unit Pantoprazole Sodium (Protonix 40mg Ivpb (Pre-Docked)) 100 mls @ 200 mls/hr IVPB DAILY [facility] Last Admin: 10/30/16 10:18 Dose: 200 mls/hr Insulin Aspart (Novolog Vial Sliding Scale -) 1 vial SQ Q6HPO [facility] PRN Reason: Protocol Last Admin: 10/30/16 07:05 Dose: Not Given Insulin Detemir (Levemir Vial) 10 units SQ BIDI [facility] Last Admin: 10/30/16 07:05 Dose: 10 units Metoprolol Tartrate (Lopressor -) 25 mg PO TID [facility] Last Admin: 10/30/16 07:05 Dose: 25 mg Metoprolol Tartrate (Lopressor Injection -) 5 mg IVPUSH Q6H PRN PRN Reason: HYPERTENSION A/P Acute Hypoxic Respiratory Failure s/p Tracheostomy Pneumonia Recent Influenza s/p Severe Sepsis Acute Kidney Injury improving Lactic Acidosis resolved +Troponins - ?Demand Ischemia from Sepsis LV Systolic Heart Failure HTN CAD DM Dementia r/o Acute Cholecystitis - antibiotics per ID - for cholecystostomy placement - monitor urine output, creatinine - ASA, beta regina - taper Fio2, PEEP to keep Spo2 >90% - hold all sedation to assess mental status - start spontaneous breathing trials as tolerated when mental status improves and less oxygen requirements - DVT/GI prophylaxis
--- NOTE | 2016-10-30 12:39 | PN ---
Progress Note (short form) - Note Progress Note: Chief Complaint: FL, resp failure History of Present Illness: trach to vent; opens eyes without focusing on examiner, not communicative s/p IV lasix 40 mg yesterday Current Medications Acetaminophen (Tylenol Suppository -) 650 mg [place] Q6H PRN PRN Reason: FEVER OR PAIN Aspirin (Asa -) 81 mg PO DAILY [facility] Last Admin: 10/30/16 10:19 Dose: 81 mg Atorvastatin Calcium (Lipitor -) 40 mg PO HS [facility] Last Admin: 10/29/16 21:11 Dose: 40 mg Chlorhexidine Gluconate (Peridex -) 15 ml MM BID [facility] Last Admin: 10/30/16 10:19 Dose: 15 ml Heparin Sodium (Porcine) (Heparin -) 5,000 unit SQ TID [facility] Last Admin: 10/30/16 07:05 Dose: 5,000 unit Pantoprazole Sodium (Protonix 40mg Ivpb (Pre-Docked)) 100 mls @ 200 mls/hr IVPB DAILY [facility] Last Admin: 10/30/16 10:18 Dose: 200 mls/hr Insulin Aspart (Novolog Vial Sliding Scale -) 1 vial SQ Q6HPO [facility] PRN Reason: Protocol Last Admin: 10/30/16 07:05 Dose: Not Given Insulin Detemir (Levemir Vial) 10 units SQ BIDI [facility] Last Admin: 10/30/16 07:05 Dose: 10 units Metoprolol Tartrate (Lopressor -) 25 mg PO TID [facility] Last Admin: 10/30/16 07:05 Dose: 25 mg Metoprolol Tartrate (Lopressor Injection -) 5 mg IVPUSH Q6H PRN PRN Reason: HYPERTENSION Vital Signs - 24 hr 10/29/16 10/29/16 10/29/16 14:00 14:10 16:00 Temperature 98.2 F Pulse Rate 84 92 H Respiratory 16 19 14 Rate Blood Pressure 133/65 139/66 O2 Sat by Pulse Oximetry (%) 10/29/16 10/29/16 10/29/16 16:20 18:00 19:05 Temperature Pulse Rate 77 Respiratory 21 18 19 Rate Blood Pressure 139/65 O2 Sat by Pulse Oximetry (%) 10/29/16 10/29/16 10/29/16 20:00 21:00 21:22 Temperature 100 F H Pulse Rate 85 Respiratory 16 18 27 H Rate Blood Pressure 141/66 O2 Sat by Pulse 92 L Oximetry (%) 10/29/16 10/29/16 10/29/16 22:00 23:00 23:20 Temperature 98.4 F 99.9 F H Pulse Rate 85 92 H Respiratory 18 18 26 H Rate Blood Pressure 140/65 150/70 O2 Sat by Pulse 92 L Oximetry (%) 10/30/16 10/30/16 10/30/16 02:00 03:00 04:00 Temperature Pulse Rate Respiratory 22 Rate Blood Pressure 152/80 146/60 O2 Sat by Pulse Oximetry (%) 10/30/16 10/30/16 06:00 07:04 Temperature 97.4 F L Pulse Rate 99 H Respiratory 18 25 H Rate Blood Pressure 132/65 O2 Sat by Pulse 95 Oximetry (%) Intake & Output 10/28/16 10/29/16 10/30/16 10/31/16 07:59 07:59 07:59 07:59 Intake Total 1944.2 2700 1790 Output Total 1445 549 5582 Balance 544.2 1750 790 Weight 187 lb 13.341 oz 184 lb 11.958 oz Constitutional: Yes: Well Nourished, No Distress, Calm Cardiovascular: Yes: Regular Rate and Rhythm, S1, S2. No: JVD, Gallop, Murmur Respiratory: Yes: Regular, CTA Bilaterally (anteriorly). No: Accessory Muscle Use, Rales, Wheezes Extremities: No: Cold Edema: Yes (1+ pedal (SCDs)) Neurological: No: Alert, Oriented, Seizure Psychiatric: No: Agitated Labs: CBC, BMP 10/30/16 06:58 10/30/16 06:58 - ....Imaging EKG: Other (prior tele: NSR, no VT) Assessment/Plan cxr: worsened congestion echo 10/2016: sev dilated lv, sev dec lvef, rv mod dilated/mod dec rv fcn, reina, mild mr Assessment/Plan HTN - becomes hypertensive when tachypneic or off sedation, but pressures tend to drop again when sedation is resumed. - currently bp acceptable, will uptitrate metoprolol acute hypoxic resp failure, multifactorial: PNA, recent influenza dx, acute syst chf: -s/p trach, vent support per pulm -abx per ID, crit care -echo here showing biventricular failure, suspect chronic (prior hx details unknown to us)--will need f/u echo later once recovers from acute illness -cont bb for now, consider kathie-i later wif bp stable -chf likely minor contributor to resp failure here, + congested cxr--dosing lasix daily prn based on exam and cxr - 10/25: worsening edema, s/p lasix 40 mg IV x 1. - 10/27: no edema; cxr unchanged (pulm edema vs infiltrates)--re-dose lasix today -10/28: cxr no change, mild periph edema; ? 3rd spacing (albumin very low)-- defer lasix today -10/29: same, cont prn lasix - 10/30. will redose lasix today sepsis -initially with PNA -defervesced, then spiked again to 101.9 -rpt cx's pending, r/o vent associated PNA--infectious w/u and tx per ID/crit care prior h/o CAD, + elevated troponin here--NSTEMI: -initial trop 3.4, trended down. -florid sepsis picture at that time: ? sepsis direct myocardial injury, vs Type II FL from hypoxia/tachycardia vs Type I FL (ACS) -ECG with ischemic changes (TWIs anteriorly)--also could all be secondary to above -echo here with severe dec lvef, no RWMA described -treated as nstemi here with hep gtt initially -cont ASA, statin and bb -plavix deferred given advanced age, tenuous clinical status/serious comorbid processes -further ischemic eval based on clinical course NSVT: -intermittent recurrent brief runs on tele -replete K/Mg prn (usual targets) -cont metopr 25 tid hypoalbuminemia/poor nutrition: -per crit care LFTs: -elevated alk phos, AST/ALT, possibly 2/2 hepatic congestion. Improving with diuresis. -rx'd atorva here, ? new rx (per ER med list in [employer]) -monitor LFTs trend, if no other etiology found (abx? propafol?) will hold statin
[2016-10-30] MEDS ORDERED: POTASSIUM CHLORIDE ORAL LIQUID 20 MEQ/15 ML PO ONE (13:15)
[2016-10-30] MEDS ORDERED: FUROSEMIDE 40 MG/4 ML INJECTABLE VIAL IVPUSH ONE (13:15)
--- NOTE | 2016-10-30 13:44 | PN ---
Progress Note (short form) - Note Progress Note: opens eyes, does not follow commands trach to vent Vital Signs Period Temp Pulse Resp BP Sys/Machado Pulse Ox Last 24 Hr 97.4 F-100 F 77-99 14-27 132-152/60-80 92-95 cor-rrr lungs decreased bs at bases abd soft, nt binder ext no edema CBC, BMP 10/30/16 06:58 10/30/16 06:58 Laboratory Tests 10/28/16 10/29/16 06:00 05:15 Total Bilirubin 1.1 H Direct Bilirubin 0.7 H AST 223 H 166 H ALT 126 H 98 H Alkaline Phosphatase 334 H 365 H a/p day #9 imipenem cholycystitis resp failure IR drainage of gallbladder in am continue antibiotics hopefully can d/c antibiotics after tube is placed
[2016-10-30] MEDS ORDERED: ALBUTEROL SO4 0.083% IH SOL 2.5 MG/3 ML VIAL.NEB. NEB PRN (15:49)
--- NOTE | 2016-10-30 15:49 | RAPID ---
Physical Examination Vital Signs: Vital Signs Temperature 98.8 F 10/30/16 14:07 Pulse Rate 84 10/30/16 14:07 Respiratory Rate 19 10/30/16 15:00 Blood Pressure 131/70 10/30/16 14:07 O2 Sat by Pulse Oximetry (%) 95 10/30/16 06:00 Constitutional: Yes: Calm HENT: Yes: Atraumatic Neck: Yes: Supple Cardiovascular: Yes: Regular Rate and Rhythm, S1, S2 Respiratory: Yes: Regular, CTA Bilaterally Gastrointestinal: Yes: Normal Bowel Sounds, Soft Edema: No Peripheral Pulses WNL: Yes Peripheral Pulses: Left Radial: 2+, Right Radial: 2+, Left Doralis Pedis: 2+, Right Dorsalis Pedis: 2+ Neurological: Yes: Pre-Existing Deficit, Unresponsive Labs: CBC, BMP 10/30/16 06:58 10/30/16 06:58 Rapid Response - Rapid Response Assessment: rapid response called on 86 year old male with Acute Hypoxic Respiratory Failure s/p Tracheostomy, Pneumonia, s/p Severe Sepsis Acute Kidney Injury, CAD. Pt O2 sat was in 60's despite increase FiO2 on Ventilator and suctioning. No leak in ventilator tubing. No tachypneic, no accessory muscle use, no s/s of resp distress Upon further suctioning O2 sat came back up and yellow mucus was suctioned from tracheotomy Impression Acute hypoxia due to mucus plug r/o bronchospasm Plan Duoneb inh q6h scheduled Albuterol q4h Prn Frequent suctioning q2h and prn ABG CXR Consult Pulm Dr Lizarraga Call placed to PCP dr Dia Jones, awaiting call back Dr Dia Jones to follow up on all labs, imaging and any following care.
[2016-10-30 16:18] LABS: ARTERIAL BLD GAS O2 SATURATION 99.7 % (90-98.9); ARTERIAL BLOOD GAS HCO3 26.9 meq/L (22-26); ARTERIAL BLOOD GAS pH 7.44 (7.35-7.45)
[2016-10-30 16:19] LABS: ALLENS TEST POSITIVE; ART PUNCT SITE RIGHT RADIAL; LPM/O2% 100%; MECH. VENT. YES; PT. ON O2? TES; TYPE OF O2 MECHANICAL VENT
[2016-10-30 16:20] LABS: VENT RATE 12; VT/PRESS 500ML
[2016-10-30] MEDS: ALBUTEROL SO4 2.5/IPRATROPIUM 0.5 INH SOL 3 ML VIAL.NEB. NEB SCH (18:18)
[2016-10-30] MEDS ORDERED: PT OWN MED DRAWER 7, Y5N ONE (23:02)
[2016-10-30] MEDS: ATORVASTATIN CA 40 MG TABLET (FP) PO SCH (23:08)
[2016-10-31] MEDS: INSULIN SLIDING SCALE (NOVOLOG) 1 VIAL SQ SCH ×4 (02:35→18:14)
[2016-10-31] MEDS: HEPARIN NA (PORCINE) 5,000 UNITS/ML 1ML VIAL SQ SCH (06:55)
[2016-10-31] MEDS: METOPROLOL TARTRATE 25 MG TABLET (FP) PO SCH ×3 (06:55→21:43)
[2016-10-31] MEDS: INSULIN DETEMIR 100 UNITS/ML MDV SQ SCH ×2 (06:56→19:15)
[2016-10-31] MEDS: ALBUTEROL SO4 2.5/IPRATROPIUM 0.5 INH SOL 3 ML VIAL.NEB. NEB SCH ×5 (07:33→23:43)
[2016-10-31 07:56] LABS: ANION GAP 9 (8-16); CALCIUM 7.8 mg/dL (8.5-10.1); CO2 28 mmol/L (21-32); COCKROFT - GAULT 157; CREATININE 0.4 mg/dL (0.7-1.3); GLUCOSE,RANDOM 108 mg/dL (74-106); MAGNESIUM 1.8 mg/dL (1.8-2.4); SGOT/AST 99 U/L (15-37); SGPT/ALT 68 U/L (12-78)
[2016-10-31 07:58] LABS: ALK PHOS 336 U/L (45-117); BILIRUBIN,TOTAL 0.8 mg/dL (0.2-1.0); TOT PROT 5.1 g/dl (6.4-8.2)
--- NOTE | 2016-10-31 08:06 | PN ---
Progress Note (short form) - Note Progress Note: rapid response last night, mucous plug /bronchospasm very pooly responsive S/p Trach and PEG and cholecystitis /fevers -- possible IR drainage eyes closed, does not open to stimulation, no spontaneous movements limited Dolls (eyes forced closed) , + corneals, breathing over vent gurgling from trach - Current Medication List Current Medications: Active Medications Acetaminophen (Tylenol Suppository -) 650 mg [place] Q6H PRN PRN Reason: FEVER OR PAIN Last Admin: 10/21/16 16:53 Dose: 650 mg Aspirin (Asa -) 81 mg PO DAILY [facility] Last Admin: 10/22/16 12:51 Dose: 81 mg Atorvastatin Calcium (Lipitor -) 40 mg PO HS [facility] Last Admin: 10/22/16 21:52 Dose: 40 mg Chlorhexidine Gluconate (Hibiclens For Decolonization -) 1 applic TP HS [facility] Last Admin: 10/22/16 21:51 Dose: 1 applic Chlorhexidine Gluconate (Peridex -) 15 ml MM BID [facility] Last Admin: 10/22/16 21:50 Dose: 15 ml Heparin Sodium (Porcine) (Heparin -) 5,000 unit SQ BID [facility] Last Admin: 10/22/16 21:50 Dose: 5,000 unit Pantoprazole Sodium (Protonix 40mg Ivpb (Pre-Docked)) 100 mls @ 200 mls/hr IVPB DAILY [facility] Last Admin: 10/22/16 09:20 Dose: 200 mls/hr Propofol (Diprivan -) 100 mls @ 2.353 mls/hr IVPB TITR [facility]; 5 MCG/KG/MIN PRN Reason: Protocol Last Admin: 10/22/16 17:17 Dose: 3.294 mls/hr Propofol (Diprivan -) 100 mls @ 2.424 mls/hr IVPB TITR [facility]; 5 MCG/KG/MIN PRN Reason: Protocol Last Admin: 10/23/16 00:06 Dose: 4.848 mls/hr Vancomycin HCl 1,250 mg/ (Dextrose) 250 mls @ 166.667 mls/hr IVPB DAILY [facility] PRN Reason: Protocol Last Admin: 10/22/16 12:11 Dose: 166.667 mls/hr Imipenem/Cilastatin Sodium 500 (mg/ Sodium Chloride) 100 mls @ 100 mls/hr IVPB Q6H-IV [facility] PRN Reason: Protocol Last Admin: 10/23/16 03:53 Dose: 100 mls/hr Insulin Aspart (Novolog Vial Sliding Scale -) 1 vial SQ Q6HPO [facility] PRN Reason: Protocol Last Admin: 10/23/16 06:08 Dose: 4 units Insulin Detemir (Levemir Vial) 10 units SQ BIDI [facility] Last Admin: 10/23/16 06:08 Dose: 10 units Metoprolol Tartrate (Lopressor -) 12.5 mg PO TID [facility] Last Admin: 10/23/16 06:08 Dose: 12.5 mg - Objective Vital Signs: Vital Signs Period Temp Pulse Resp BP Sys/Machado Pulse Ox Last 24 Hr 97.8 F-98.8 F 76-88 12-27 116-147/56-70 95-99 Vital Signs 4 Neurological: Yes: Other (see above) Labs: CBCD WBC 15.8 K/mm3 (4.0-10.0) H 10/30/16 06:58 RBC 3.77 M/mm3 (4.00-5.60) L 10/30/16 06:58 Hgb 10.1 GM/dL (11.7-16.9) L 10/30/16 06:58 Hct 31.6 % (35.4-49) L 10/30/16 06:58 MCV 83.8 fl (80-96) 10/30/16 06:58 MCHC 32.1 g/dl (32.0-35.9) 10/30/16 06:58 RDW 14.3 % (11.9-15.9) 10/30/16 06:58 Plt Count 371 K/MM3 (134-434) 10/30/16 06:58 MPV 8.4 fl (7.5-11.1) 10/30/16 06:58 CMP Sodium 137 mmol/L (136-145) 10/30/16 06:58 Potassium 3.6 mmol/L (3.5-5.1) 10/30/16 06:58 Chloride 103 mmol/L (98-107) 10/30/16 06:58 Carbon Dioxide 25 mmol/L (21-32) 10/30/16 06:58 Anion Gap 9 (8-16) 10/30/16 06:58 BUN 16 mg/dL (7-18) 10/30/16 06:58 Creatinine 0.4 mg/dL (0.7-1.3) L 10/30/16 06:58 Creat Clearance w eGFR > 60 (>60) 10/30/16 06:58 Calcium 7.7 mg/dL (8.5-10.1) L 10/30/16 06:58 Total Bilirubin 0.9 mg/dL (0.2-1.0) 10/30/16 06:58 AST 97 U/L (15-37) H D 10/30/16 06:58 ALT 70 U/L (12-78) D 10/30/16 06:58 Alkaline Phosphatase 344 U/L (45-117) H 10/30/16 06:58 Total Protein 5.0 g/dl (6.4-8.2) L 10/30/16 06:58 Albumin 1.0 g/dl (3.4-5.0) L 10/30/16 06:58 Problem List Assessment/Plan 86 year old male from [facility] with PMH of HTN, HLD, CAD s/p bare metal stent, afib, L atrial lipoma, latent TB, Alzheimer's dementia and DM -- now with prolonged encephalopathy from resp failure, s/p trach /PEG , complicated with intermittent fevers/ cholecystitis , due for IR drainage rapid response on 10/30 for mucous plug severe global encephalopathy, with worsening mental state --from [facility] infectious /respiratory etiologies poor prognosis DR Kiran [id number] - Problem List - Problems (1) Acute respiratory failure with hypoxia Code(s): J96.01 - ACUTE RESPIRATORY FAILURE WITH HYPOXIA (2) Cerebrovascular small vessel disease Code(s): I67.9 - CEREBROVASCULAR DISEASE, UNSPECIFIED (3) Encephalopathy acute Code(s): G93.40 - ENCEPHALOPATHY, UNSPECIFIED (4) Sepsis Code(s): A41.9 - SEPSIS, UNSPECIFIED ORGANISM Qualifiers: Sepsis type: sepsis due to unspecified organism Qualified Code(s): A41.9 - Sepsis, unspecified organism
[2016-10-31] MEDS: CHLORHEXIDINE GLUCONATE 0.12% 15ML CUP MM SCH ×2 (10:00→21:43)
[2016-10-31] MEDS: ASPIRIN 81 MG CHEWABLE TABLETS PO SCH (11:02)
--- NOTE | 2016-10-31 11:13 | PN ---
Progress Note (short form) - Note Progress Note: s: trach to vent;opens eyes without focusing on examiner, not communicative; overnight had rapid response for mucous plug Current Medications Generic Name Dose Route Start Last Admin Trade Name Freq PRN Reason Stop Dose Admin Acetaminophen 650 mg 10/29/16 21:06 Tylenol Suppository - NE Q6H PRN FEVER OR PAIN Albuterol Sulfate 1 amp 10/30/16 15:49 10/30/16 15:57 Ventolin 0.083% Nebulizer Soln - NEB 1 amp Q4H PRN Administration SHORT OF BREATH/WHEEZING Albuterol/Ipratropium 1 amp 10/30/16 18:00 10/31/16 07:33 Duoneb - NEB 1 amp QIDR [facility] Administration Aspirin 81 mg 10/30/16 10:00 10/31/16 11:02 Asa - PO Not Given DAILY [facility] Atorvastatin Calcium 40 mg 10/29/16 22:00 10/30/16 23:08 Lipitor - PO 40 mg HS [facility] Administration Chlorhexidine Gluconate 15 ml 10/29/16 22:00 10/30/16 23:08 Peridex - MM 15 ml BID [facility] Administration Pantoprazole Sodium 100 mls @ 200 mls/hr 10/30/16 10:00 10/30/16 10:18 Protonix 40mg Ivpb (Pre-Docked) IVPB 200 mls/hr DAILY [facility] Administration Insulin Aspart 1 vial 10/30/16 00:00 10/31/16 07:09 Novolog Vial Sliding Scale - SQ Not Given Q6HPO [facility] Protocol Insulin Detemir 10 units 10/30/16 07:00 10/31/16 06:56 Levemir Vial SQ 10 units BIDI [facility] Administration Metoprolol Tartrate 25 mg 10/29/16 22:00 10/31/16 06:55 Lopressor - PO 25 mg TID [facility] Administration Metoprolol Tartrate 5 mg 10/29/16 21:06 Lopressor Injection - IVPUSH Q6H PRN HYPERTENSION Vital Signs Period Temp Pulse Resp BP Sys/Machado Pulse Ox Last 24 Hr 97.8 F-98.8 F 76-88 12-24 116-147/56-70 97-99 Constitutional: Yes: No Distress, Calm Cardiovascular: Yes: Regular Rate and Rhythm, S1, S2. No: JVD, Gallop, Murmur Respiratory: Yes: Regular, CTA Bilaterally (anteriorly), trach/vent Extremities: No: Cold Edema: Yes (1+ pedal (SCDs)) Neurological: No: lethargic, non communicative Psychiatric: No: Agitated no jaundice diaphoresis CBC, BMP 10/30/16 06:58 10/31/16 06:15 echo 10/2016: sev dilated lv, sev dec lvef, rv mod dilated/mod dec rv fcn, reina, mild mr Assessment/Plan HTN -controlled on current meds acute hypoxic resp failure, multifactorial: PNA, recent influenza dx, acute syst chf: -s/p trach, vent support per pulm -abx per ID, crit care -echo here showing biventricular failure, suspect chronic (prior hx details unknown to us)--will need f/u echo later once recovers from acute illness -cont bb for now, consider kathie-i later wif bp stable -chf likely minor contributor to resp failure here, + congested cxr--dosing lasix daily prn based on exam and cxr - 10/25: worsening edema, s/p lasix 40 mg IV x 1. - 10/27: no edema; cxr unchanged (pulm edema vs infiltrates)--re-dose lasix today -10/28: cxr no change, mild periph edema; ? 3rd spacing (albumin very low)-- defer lasix today -10/29: same, cont prn lasix -10/30: will redose lasix today -10/31: holding lasix today sepsis -initially with PNA, abx per ID prior h/o CAD, + elevated troponin here--NSTEMI: -initial trop 3.4, trended down. -florid sepsis picture at that time: ? sepsis direct myocardial injury, vs Type II ID from hypoxia/tachycardia vs Type I ID (ACS) -ECG with ischemic changes (TWIs anteriorly)--also could all be secondary to above -echo here with severe dec lvef, no RWMA described -treated as nstemi here with hep gtt initially -cont ASA, statin and bb -plavix deferred given advanced age, tenuous clinical status/serious comorbid processes -further ischemic eval based on clinical course NSVT: -intermittent recurrent brief runs when on tele here -replete K/Mg prn -cont metopr hypoalbuminemia/poor nutrition: -likely contributing to edema elevated LFTs: -acute vaibhav, planned for IR drainage -holding statin
[2016-10-31] MEDS: PANTOPRAZOLE SODIUM 100 ML IVPB SCH (11:22)
--- NOTE | 2016-10-31 11:42 | PN ---
Progress Note, Physician Chief Complaint: rapid response yesterday for desaturation- likely mucus plug awake opens eyes to name - Current Medication List Current Medications: Active Medications Acetaminophen (Tylenol Suppository -) 650 mg RI Q6H PRN PRN Reason: FEVER OR PAIN Albuterol Sulfate (Ventolin 0.083% Nebulizer Soln -) 1 amp NEB Q4H PRN PRN Reason: SHORT OF BREATH/WHEEZING Last Admin: 10/30/16 15:57 Dose: 1 amp Albuterol/Ipratropium (Duoneb -) 1 amp NEB QIDR [facility] Last Admin: 10/31/16 11:28 Dose: 1 amp Aspirin (Asa -) 81 mg PO DAILY [facility] Last Admin: 10/31/16 11:02 Dose: Not Given Atorvastatin Calcium (Lipitor -) 40 mg PO HS [facility] Last Admin: 10/30/16 23:08 Dose: 40 mg Chlorhexidine Gluconate (Peridex -) 15 ml MM BID [facility] Last Admin: 10/30/16 23:08 Dose: 15 ml Pantoprazole Sodium (Protonix 40mg Ivpb (Pre-Docked)) 100 mls @ 200 mls/hr IVPB DAILY [facility] Last Admin: 10/31/16 11:22 Dose: 200 mls/hr Insulin Aspart (Novolog Vial Sliding Scale -) 1 vial SQ Q6HPO [facility] PRN Reason: Protocol Last Admin: 10/31/16 11:26 Dose: Not Given Insulin Detemir (Levemir Vial) 10 units SQ BIDI [facility] Last Admin: 10/31/16 06:56 Dose: 10 units Metoprolol Tartrate (Lopressor -) 25 mg PO TID [facility] Last Admin: 10/31/16 06:55 Dose: 25 mg Metoprolol Tartrate (Lopressor Injection -) 5 mg IVPUSH Q6H PRN PRN Reason: HYPERTENSION - Objective Vital Signs: Vital Signs Temperature 97.8 F 10/31/16 06:00 Pulse Rate 87 10/31/16 10:22 Respiratory Rate 18 10/31/16 10:22 Blood Pressure 147/65 10/31/16 06:00 O2 Sat by Pulse Oximetry (%) 97 10/31/16 10:22 Constitutional: Yes: No Distress Cardiovascular: Yes: Regular Rate and Rhythm Respiratory: Yes: Diminished, Rales Gastrointestinal: Yes: Normal Bowel Sounds, Soft, Other (peg+). No: Distention , Tenderness Edema: Yes Edema: LLE: Trace, RLE: Trace Labs: CBC, BMP 10/30/16 06:58 10/31/16 06:15 INR, PTT INR 1.24 (0.82-1.09) H 10/29/16 05:15 Problem List - Problems (1) Acute respiratory failure with hypoxia Code(s): J96.01 - ACUTE RESPIRATORY FAILURE WITH HYPOXIA (2) Sepsis Code(s): A41.9 - SEPSIS, UNSPECIFIED ORGANISM Qualifiers: Sepsis type: sepsis due to unspecified organism Qualified Code(s): A41.9 - Sepsis, unspecified organism (3) Alzheimer disease Code(s): G30.9 - ALZHEIMER'S DISEASE, UNSPECIFIED Qualifiers: Alzheimer's disease onset: early-onset Dementia behavioral disturbance : without behavioral disturbance Qualified Code(s): G30.0 - Alzheimer's disease with early onset; F02.81 - Dementia in other diseases classified elsewhere with behavioral disturbance (4) Healthcare-associated pneumonia Code(s): J18.9 - PNEUMONIA, UNSPECIFIED ORGANISM (5) Cholecystitis Code(s): K81.9 - CHOLECYSTITIS, UNSPECIFIED (6) Encephalopathy acute Code(s): G93.40 - ENCEPHALOPATHY, UNSPECIFIED (7) Respiratory failure Code(s): J96.90 - RESPIRATORY FAILURE, UNSP, UNSP W HYPOXIA OR HYPERCAPNIA Qualifiers: Chronicity: acute Respiratory failure complication: hypoxia Qualified Code(s): J96.01 - Acute respiratory failure with hypoxia Assessment/Plan PLAN IV antibiotics completed nebs surgical follow up noted Will get gallbladder drained tomorrow by IR supportive care DVT prophylaxis-- Heparin held pending tomorrow's procedure
[2016-10-31] MEDS ORDERED: FUROSEMIDE 40 MG/4 ML INJECTABLE VIAL IVPUSH ONE (12:45)
--- NOTE | 2016-10-31 14:34 | PN ---
Progress Note (short form) - Note Progress Note: opens eyes, does not follow commands trach to vent Vital Signs Period Temp Pulse Resp BP Sys/Machado Pulse Ox Last 24 Hr 97.8 F-98.3 F 76-88 18-24 116-147/56-65 97-99 trach to vent cor-rrr lungs decreased bs at bases abd firm +GT ext no edema CBC, BMP 10/30/16 06:58 10/31/16 06:15 Microbiology 10/27/16 01:00 Blood - Peripheral Venous Blood Culture - Preliminary NO GROWTH OBTAINED AFTER 96 HOURS, INCUBATION TO CONTINUE FOR 1 DAYS. 10/27/16 01:00 Blood - Peripheral Venous Blood Culture - Preliminary NO GROWTH OBTAINED AFTER 96 HOURS, INCUBATION TO CONTINUE FOR 1 DAYS. 10/26/16 16:28 Blood - Peripheral Venous Blood Culture - Preliminary NO GROWTH OBTAINED AFTER 96 HOURS, INCUBATION TO CONTINUE FOR 1 DAYS. 10/26/16 17:30 Sputum - Endotrachea Suction/Ventilator Gram Stain - Final 10/26/16 17:30 Sputum - Endotrachea Suction/Ventilator Sputum Culture - Final Yeast Like Organism a/p day #10 imipenem cholycystitis resp failure IR drainage of gallbladder continue antibiotics hopefully can d/c antibiotics after tube is placed
--- NOTE | 2016-10-31 15:16 | PN ---
Progress Note, Physician History of Present Illness: PULMONARY NO CHANGE,POORLY RESPONSIVE ON VENT SUPPORT AC MODE - Current Medication List Current Medications: Active Medications Acetaminophen (Tylenol Suppository -) 650 mg [place] Q6H PRN PRN Reason: FEVER OR PAIN Albuterol Sulfate (Ventolin 0.083% Nebulizer Soln -) 1 amp NEB Q4H PRN PRN Reason: SHORT OF BREATH/WHEEZING Last Admin: 10/30/16 15:57 Dose: 1 amp Albuterol/Ipratropium (Duoneb -) 1 amp NEB QIDR [facility] Last Admin: 10/31/16 11:28 Dose: 1 amp Aspirin (Asa -) 81 mg PO DAILY [facility] Last Admin: 10/31/16 11:02 Dose: Not Given Atorvastatin Calcium (Lipitor -) 40 mg PO HS [facility] Last Admin: 10/30/16 23:08 Dose: 40 mg Chlorhexidine Gluconate (Peridex -) 15 ml MM BID [facility] Last Admin: 10/30/16 23:08 Dose: 15 ml Pantoprazole Sodium (Protonix 40mg Ivpb (Pre-Docked)) 100 mls @ 200 mls/hr IVPB DAILY [facility] Last Admin: 10/31/16 11:22 Dose: 200 mls/hr Insulin Aspart (Novolog Vial Sliding Scale -) 1 vial SQ Q6HPO [facility] PRN Reason: Protocol Last Admin: 10/31/16 11:26 Dose: Not Given Insulin Detemir (Levemir Vial) 10 units SQ BIDI [facility] Last Admin: 10/31/16 06:56 Dose: 10 units Metoprolol Tartrate (Lopressor -) 25 mg PO TID [facility] Last Admin: 10/31/16 14:27 Dose: 25 mg Metoprolol Tartrate (Lopressor Injection -) 5 mg IVPUSH Q6H PRN PRN Reason: HYPERTENSION - Objective Vital Signs: Vital Signs Temperature 97.8 F 10/31/16 06:00 Pulse Rate 87 10/31/16 10:22 Respiratory Rate 20 10/31/16 13:55 Blood Pressure 147/65 10/31/16 06:00 O2 Sat by Pulse Oximetry (%) 97 10/31/16 10:22 Constitutional: Yes: Well Nourished, Other (LETHARGIC) Eyes: Yes: WNL HENT: Yes: WNL Neck: Yes: Supple (TRACH) Cardiovascular: Yes: Regular Rate and Rhythm, S1, S2 Respiratory: Yes: Rhonchi (SCATTERED BILATERAL RHONCHI) Gastrointestinal: Yes: Soft Extremities: Yes: WNL Edema: Yes Labs: CBC, BMP 10/30/16 06:58 10/31/16 06:15 INR, PTT INR 1.24 (0.82-1.09) H 10/29/16 05:15 Problem List - Problems (1) Acute respiratory failure with hypoxia Code(s): J96.01 - ACUTE RESPIRATORY FAILURE WITH HYPOXIA (2) Cerebrovascular disease Code(s): I67.9 - CEREBROVASCULAR DISEASE, UNSPECIFIED (3) Cerebrovascular small vessel disease Code(s): I67.9 - CEREBROVASCULAR DISEASE, UNSPECIFIED (4) Cholecystitis with cholelithiasis Code(s): K80.10 - CALCULUS OF GALLBLADDER W CHRONIC CHOLECYST W/O OBSTRUCTION Qualifiers: Cholelithiasis location: gallbladder Cholecystitis acuity: acute Biliary obstruction: without biliary obstruction Qualified Code(s): K80.00 - Calculus of gallbladder with acute cholecystitis without obstruction (5) Encephalopathy acute Code(s): G93.40 - ENCEPHALOPATHY, UNSPECIFIED (6) Respiratory failure Code(s): J96.90 - RESPIRATORY FAILURE, UNSP, UNSP W HYPOXIA OR HYPERCAPNIA Qualifiers: Chronicity: acute Respiratory failure complication: hypoxia Qualified Code(s): J96.01 - Acute respiratory failure with hypoxia (7) Sepsis Code(s): A41.9 - SEPSIS, UNSPECIFIED ORGANISM Qualifiers: Sepsis type: sepsis due to unspecified organism Qualified Code(s): A41.9 - Sepsis, unspecified organism (8) Septic shock Code(s): A41.9 - SEPSIS, UNSPECIFIED ORGANISM R65.21 - SEVERE SEPSIS WITH SEPTIC SHOCK (9) Alzheimer disease Code(s): G30.9 - ALZHEIMER'S DISEASE, UNSPECIFIED Qualifiers: Alzheimer's disease onset: early-onset Dementia behavioral disturbance : without behavioral disturbance Qualified Code(s): G30.0 - Alzheimer's disease with early onset; F02.81 - Dementia in other diseases classified elsewhere with behavioral disturbance (10) Lactic acid blood increased Code(s): R79.89 - OTHER SPECIFIED ABNORMAL FINDINGS OF BLOOD CHEMISTRY Assessment/Plan A/P Acute Hypoxic Respiratory Failure s/p Tracheostomy Pneumonia Recent Influenza s/p Severe Sepsis Acute Kidney Injury improving Lactic Acidosis resolved +Troponins - ?Demand Ischemia from Sepsis LV Systolic Heart Failure HTN CAD DM Dementia r/o Acute Cholecystitis - antibiotics per ID - for cholecystostomy placement in am - monitor urine output, creatinine - ASA, beta regina - taper Fio2, PEEP to keep Spo2 >90% - start spontaneous breathing trials as tolerated when mental status improves and less oxygen requirements - DVT/GI prophylaxis DR UNDERWOOD
--- NOTE | 2016-10-31 15:22 | PN ---
Progress Note, Physician - Current Medication List Current Medications: Active Medications Acetaminophen (Tylenol Suppository -) 650 mg [place] Q6H PRN PRN Reason: FEVER OR PAIN Albuterol Sulfate (Ventolin 0.083% Nebulizer Soln -) 1 amp NEB Q4H PRN PRN Reason: SHORT OF BREATH/WHEEZING Last Admin: 10/30/16 15:57 Dose: 1 amp Albuterol/Ipratropium (Duoneb -) 1 amp NEB QIDR [facility] Last Admin: 10/31/16 11:28 Dose: 1 amp Aspirin (Asa -) 81 mg PO DAILY [facility] Last Admin: 10/31/16 11:02 Dose: Not Given Atorvastatin Calcium (Lipitor -) 40 mg PO HS [facility] Last Admin: 10/30/16 23:08 Dose: 40 mg Chlorhexidine Gluconate (Peridex -) 15 ml MM BID [facility] Last Admin: 10/30/16 23:08 Dose: 15 ml Pantoprazole Sodium (Protonix 40mg Ivpb (Pre-Docked)) 100 mls @ 200 mls/hr IVPB DAILY [facility] Last Admin: 10/31/16 11:22 Dose: 200 mls/hr Insulin Aspart (Novolog Vial Sliding Scale -) 1 vial SQ Q6HPO [facility] PRN Reason: Protocol Last Admin: 10/31/16 11:26 Dose: Not Given Insulin Detemir (Levemir Vial) 10 units SQ BIDI [facility] Last Admin: 10/31/16 06:56 Dose: 10 units Metoprolol Tartrate (Lopressor -) 25 mg PO TID [facility] Last Admin: 10/31/16 14:27 Dose: 25 mg Metoprolol Tartrate (Lopressor Injection -) 5 mg IVPUSH Q6H PRN PRN Reason: HYPERTENSION - Objective Vital Signs: Vital Signs Temperature 97.8 F 10/31/16 06:00 Pulse Rate 87 10/31/16 10:22 Respiratory Rate 20 10/31/16 13:55 Blood Pressure 147/65 10/31/16 06:00 O2 Sat by Pulse Oximetry (%) 97 10/31/16 10:22 Labs: CBC, BMP 10/30/16 06:58 10/31/16 06:15 INR, PTT INR 1.24 (0.82-1.09) H 10/29/16 05:15 Problem List - Problems (1) Encephalopathy acute Code(s): G93.40 - ENCEPHALOPATHY, UNSPECIFIED (2) Cholecystitis with cholelithiasis Code(s): K80.10 - CALCULUS OF GALLBLADDER W CHRONIC CHOLECYST W/O OBSTRUCTION Qualifiers: Qualified Code(s): K80.00 - Calculus of gallbladder with acute cholecystitis without obstruction (3) Respiratory failure Code(s): J96.90 - RESPIRATORY FAILURE, UNSP, UNSP W HYPOXIA OR HYPERCAPNIA Qualifiers: Qualified Code(s): J96.01 - Acute respiratory failure with hypoxia (4) Sepsis Code(s): A41.9 - SEPSIS, UNSPECIFIED ORGANISM Qualifiers: Qualified Code(s): A41.9 - Sepsis, unspecified organism Assessment/Plan WBC is improving. He is scheduled for IR drainage of gallbladder tomorrow. Continue antibiotics. Cholecystitis, with hydrops of the gallbladder. Leucocytosis. sepsis, respiratory failure.
[2016-10-31] MEDS: ATORVASTATIN CA 40 MG TABLET (FP) PO SCH (21:43)
[2016-11-01] MEDS: INSULIN SLIDING SCALE (NOVOLOG) 1 VIAL SQ SCH ×5 (01:23→23:59)
[2016-11-01] MEDS: METOPROLOL TARTRATE 25 MG TABLET (FP) PO SCH ×3 (05:22→23:50)
[2016-11-01] MEDS: ALBUTEROL SO4 2.5/IPRATROPIUM 0.5 INH SOL 3 ML VIAL.NEB. NEB SCH ×4 (06:33→23:15)
[2016-11-01] MEDS: PANTOPRAZOLE SODIUM 100 ML IVPB SCH ×2 (10:00→13:30)
[2016-11-01] MEDS: CHLORHEXIDINE GLUCONATE 0.12% 15ML CUP MM SCH ×3 (10:29→23:50)
--- NOTE | 2016-11-01 10:39 | PN ---
Progress Note (short form) - Note Progress Note: s: trach to vent; not communicative; no overnight events, for IR GB drain today Current Medications Generic Name Dose Route Start Last Admin Trade Name Freq PRN Reason Stop Dose Admin Acetaminophen 650 mg 10/29/16 21:06 Tylenol Suppository - [place] Q6H PRN FEVER OR PAIN Albuterol Sulfate 1 amp 10/30/16 15:49 10/30/16 15:57 Ventolin 0.083% Nebulizer Soln - NEB 1 amp Q4H PRN Administration SHORT OF BREATH/WHEEZING Albuterol/Ipratropium 1 amp 10/30/16 18:00 11/01/16 06:33 Duoneb - NEB 1 amp QIDR [facility] Administration Aspirin 81 mg 10/30/16 10:00 10/31/16 11:02 Asa - PO Not Given DAILY [facility] Atorvastatin Calcium 40 mg 10/29/16 22:00 10/31/16 21:43 Lipitor - PO 40 mg HS [facility] Administration Chlorhexidine Gluconate 15 ml 10/29/16 22:00 10/31/16 21:43 Peridex - MM 15 ml BID [facility] Administration Pantoprazole Sodium 100 mls @ 200 mls/hr 10/30/16 10:00 10/31/16 11:22 Protonix 40mg Ivpb (Pre-Docked) IVPB 200 mls/hr DAILY [facility] Administration Insulin Aspart 1 vial 10/30/16 00:00 11/01/16 05:22 Novolog Vial Sliding Scale - SQ Not Given Q6HPO [facility] Protocol Insulin Detemir 10 units 10/30/16 07:00 10/31/16 19:15 Levemir Vial SQ Not Given BIDI [facility] Metoprolol Tartrate 25 mg 10/29/16 22:00 11/01/16 05:22 Lopressor - PO 25 mg TID [facility] Administration Metoprolol Tartrate 5 mg 10/29/16 21:06 Lopressor Injection - IVPUSH Q6H PRN HYPERTENSION Vital Signs Period Temp Pulse Resp BP Sys/Machado Pulse Ox Last 24 Hr 98.9 F-99.1 F 70-81 16-22 138-150/64-72 Constitutional: Yes: No Distress, Calm Cardiovascular: Yes: Regular Rate and Rhythm, S1, S2. No: JVD, Gallop, Murmur Respiratory: Yes: Regular, CTA Bilaterally (anteriorly), trach/vent Extremities: No: Cold Edema: Yes (1+ pedal (SCDs)) Neurological: No: lethargic, non communicative Psychiatric: No: Agitated no jaundice diaphoresis CBC, BMP 10/30/16 06:58 10/31/16 06:15 echo 10/2016: sev dilated lv, sev dec lvef, rv mod dilated/mod dec rv fcn, reina, mild mr Assessment/Plan HTN -controlled on current meds acute hypoxic resp failure, multifactorial: PNA, recent influenza dx, acute syst chf: -s/p trach, vent support per pulm -abx per ID, crit care -echo here showing biventricular failure, suspect chronic (prior hx details unknown to us)--will need f/u echo later once recovers from acute illness -cont bb for now, consider kathie-i later wif bp stable -chf likely minor contributor to resp failure here, + congested cxr--dosing lasix daily prn based on exam and cxr - 10/25: worsening edema, s/p lasix 40 mg IV x 1. - 10/27: no edema; cxr unchanged (pulm edema vs infiltrates)--re-dose lasix today -10/28: cxr no change, mild periph edema; ? 3rd spacing (albumin very low)-- defer lasix today -10/29: same, cont prn lasix -10/30: will redose lasix today -10/31-27: no lasix for today sepsis -initially with PNA, abx per ID prior h/o CAD, + elevated troponin here--NSTEMI: -initial trop 3.4, trended down. -florid sepsis picture at that time: ? sepsis direct myocardial injury, vs Type II WA from hypoxia/tachycardia vs Type I WA (ACS) -ECG with ischemic changes (TWIs anteriorly)--also could all be secondary to above -echo here with severe dec lvef, no RWMA described -treated as nstemi here with hep gtt initially -cont ASA, statin and bb -plavix deferred given advanced age, tenuous clinical status/serious comorbid processes -consider further ischemic eval if he made meaningful recovery NSVT: -intermittent recurrent brief runs when on tele here -replete K/Mg prn -cont metopr hypoalbuminemia/poor nutrition: -likely contributing to edema elevated LFTs: -acute vaibhav, planned for IR drainage -holding statin
--- NOTE | 2016-11-01 11:56 | PN ---
Progress Note (short form) - Note Progress Note: PULMONARY Poorly responsive off sedation. Vented on volume assist control with 60% FiO2 and PEEP 8. Last Vital Signs Temp Pulse Resp BP Pulse Ox 99.1 F 81 12 145/79 100 11/01/16 05:23 11/01/16 11:20 11/01/16 11:20 11/01/16 11:20 11/01/16 11:20 Gen: vented, poorly responsive Heart: tachycardic, regular Lung: scattered rhonchi Abd: soft, nontender Ext: + edema CBC, BMP 10/30/16 06:58 10/31/16 06:15 Active Medications Acetaminophen (Tylenol Suppository -) 650 mg [place] Q6H PRN PRN Reason: FEVER OR PAIN Albuterol Sulfate (Ventolin 0.083% Nebulizer Soln -) 1 amp NEB Q4H PRN PRN Reason: SHORT OF BREATH/WHEEZING Last Admin: 10/30/16 15:57 Dose: 1 amp Albuterol/Ipratropium (Duoneb -) 1 amp NEB QIDR [facility] Last Admin: 11/01/16 06:33 Dose: 1 amp Aspirin (Asa -) 81 mg PO DAILY [facility] Last Admin: 10/31/16 11:02 Dose: Not Given Atorvastatin Calcium (Lipitor -) 40 mg PO HS [facility] Last Admin: 10/31/16 21:43 Dose: 40 mg Chlorhexidine Gluconate (Peridex -) 15 ml MM BID [facility] Last Admin: 10/31/16 21:43 Dose: 15 ml Pantoprazole Sodium (Protonix 40mg Ivpb (Pre-Docked)) 100 mls @ 200 mls/hr IVPB DAILY [facility] Last Admin: 10/31/16 11:22 Dose: 200 mls/hr Insulin Aspart (Novolog Vial Sliding Scale -) 1 vial SQ Q6HPO [facility] PRN Reason: Protocol Last Admin: 11/01/16 05:22 Dose: Not Given Insulin Detemir (Levemir Vial) 10 units SQ BIDI [facility] Last Admin: 10/31/16 19:15 Dose: Not Given Metoprolol Tartrate (Lopressor -) 25 mg PO TID [facility] Last Admin: 11/01/16 05:22 Dose: 25 mg Metoprolol Tartrate (Lopressor Injection -) 5 mg IVPUSH Q6H PRN PRN Reason: HYPERTENSION A/P Acute Hypoxic Respiratory Failure s/p Tracheostomy Pneumonia Recent Influenza s/p Severe Sepsis Acute Kidney Injury improving Lactic Acidosis resolved +Troponins - ?Demand Ischemia from Sepsis LV Systolic Heart Failure HTN CAD DM Dementia r/o Acute Cholecystitis - antibiotics per ID - for cholecystostomy placement - monitor urine output, creatinine - ASA, beta regina - taper Fio2, PEEP to keep Spo2 >90% - hold all sedation to assess mental status - start spontaneous breathing trials as tolerated when mental status improves and less oxygen requirements - DVT/GI prophylaxis
--- NOTE | 2016-11-01 12:17 | PN ---
Progress Note, Physician Chief Complaint: awake opens eyes to name - Current Medication List Current Medications: Active Medications Acetaminophen (Tylenol Suppository -) 650 mg [place] Q6H PRN PRN Reason: FEVER OR PAIN Albuterol Sulfate (Ventolin 0.083% Nebulizer Soln -) 1 amp NEB Q4H PRN PRN Reason: SHORT OF BREATH/WHEEZING Last Admin: 10/30/16 15:57 Dose: 1 amp Albuterol/Ipratropium (Duoneb -) 1 amp NEB QIDR [facility] Last Admin: 11/01/16 06:33 Dose: 1 amp Aspirin (Asa -) 81 mg PO DAILY [facility] Last Admin: 10/31/16 11:02 Dose: Not Given Atorvastatin Calcium (Lipitor -) 40 mg PO HS [facility] Last Admin: 10/31/16 21:43 Dose: 40 mg Chlorhexidine Gluconate (Peridex -) 15 ml MM BID [facility] Last Admin: 10/31/16 21:43 Dose: 15 ml Pantoprazole Sodium (Protonix 40mg Ivpb (Pre-Docked)) 100 mls @ 200 mls/hr IVPB DAILY [facility] Last Admin: 10/31/16 11:22 Dose: 200 mls/hr Insulin Aspart (Novolog Vial Sliding Scale -) 1 vial SQ Q6HPO [facility] PRN Reason: Protocol Last Admin: 11/01/16 05:22 Dose: Not Given Insulin Detemir (Levemir Vial) 10 units SQ BIDI [facility] Last Admin: 10/31/16 19:15 Dose: Not Given Metoprolol Tartrate (Lopressor -) 25 mg PO TID [facility] Last Admin: 11/01/16 05:22 Dose: 25 mg Metoprolol Tartrate (Lopressor Injection -) 5 mg IVPUSH Q6H PRN PRN Reason: HYPERTENSION - Objective Vital Signs: Vital Signs Temperature 99.1 F 11/01/16 05:23 Pulse Rate 81 11/01/16 11:20 Respiratory Rate 12 11/01/16 11:20 Blood Pressure 145/79 11/01/16 11:20 O2 Sat by Pulse Oximetry (%) 100 11/01/16 11:20 Constitutional: Yes: No Distress, Other (trach) Cardiovascular: Yes: Regular Rate and Rhythm Respiratory: Yes: Diminished Gastrointestinal: Yes: Normal Bowel Sounds, Soft, Other (peg). No: Distention, Tenderness Edema: Yes Edema: LLE: Trace, RLE: Trace Labs: CBC, BMP 10/30/16 06:58 10/31/16 06:15 INR, PTT INR 1.24 (0.82-1.09) H 10/29/16 05:15 Problem List - Problems (1) Acute respiratory failure with hypoxia Code(s): J96.01 - ACUTE RESPIRATORY FAILURE WITH HYPOXIA (2) Sepsis Code(s): A41.9 - SEPSIS, UNSPECIFIED ORGANISM Qualifiers: Sepsis type: sepsis due to unspecified organism Qualified Code(s): A41.9 - Sepsis, unspecified organism (3) Alzheimer disease Code(s): G30.9 - ALZHEIMER'S DISEASE, UNSPECIFIED Qualifiers: Alzheimer's disease onset: early-onset Dementia behavioral disturbance : without behavioral disturbance Qualified Code(s): G30.0 - Alzheimer's disease with early onset; F02.81 - Dementia in other diseases classified elsewhere with behavioral disturbance (4) Healthcare-associated pneumonia Code(s): J18.9 - PNEUMONIA, UNSPECIFIED ORGANISM (5) Cholecystitis Code(s): K81.9 - CHOLECYSTITIS, UNSPECIFIED (6) Encephalopathy acute Code(s): G93.40 - ENCEPHALOPATHY, UNSPECIFIED (7) Respiratory failure Code(s): J96.90 - RESPIRATORY FAILURE, UNSP, UNSP W HYPOXIA OR HYPERCAPNIA Qualifiers: Chronicity: acute Respiratory failure complication: hypoxia Qualified Code(s): J96.01 - Acute respiratory failure with hypoxia Assessment/Plan PLAN Off antibiotics per ID for gallbladder drainage today NPO continue with supportive care
--- NOTE | 2016-11-01 15:29 | PN ---
Progress Note (short form) - Note Progress Note: antibiotics d/paramjit s/p IR drainage of gallbladder today remains unresponsive s/p levaquin today in IR Vital Signs Period Temp Pulse Resp BP Sys/Machado Pulse Ox Last 24 Hr 98.8 F-99.1 F 70-90 12-22 138-150/64-79 97-100 cor-rrr lungs clear abd soft,nt +RUQ drain with bile ext no edema CBC, BMP 10/30/16 06:58 10/31/16 06:15 Microbiology 10/27/16 01:00 Blood Culture - Final Blood - Peripheral Venous NO GROWTH AFTER 5 DAYS INCUBATION 10/27/16 01:00 Blood Culture - Final Blood - Peripheral Venous NO GROWTH AFTER 5 DAYS INCUBATION 10/26/16 16:28 Blood Culture - Final Blood - Peripheral Venous NO GROWTH AFTER 5 DAYS INCUBATION a/p s/p placement of biliary drain s/p 10 days imipenem observe off antibiotics f/u labs in am resp failure
[2016-11-01] MEDS: INSULIN DETEMIR 100 UNITS/ML MDV SQ SCH (17:48)
[2016-11-01 21:36] LABS: ALLENS TEST POSITIVE; ART PUNCT SITE LEFT RADIAL; ARTERIAL BLOOD GAS BASE EXCESS 4.3 meq/l (-2-2); ARTERIAL BLOOD GAS pH 7.41 (7.35-7.45); LPM/O2% 100%; MECH. VENT. Y; PT. ON O2? YES; TYPE OF O2 VENT; VT/PRESS 500
[2016-11-01 21:37] LABS: VENT RATE 12
[2016-11-01] MEDS: ATORVASTATIN CA 40 MG TABLET (FP) PO SCH (23:50)
--- NOTE | 2016-11-02 03:31 | PN ---
Progress Note (short form) - Note Progress Note: Consult Pulm/CCM Called to bedside of Mr Gustavo because of report of persistent fluctuating low TV return alarm on vent. On arrival pt in NAD, sleeping with audible trach cuff leak. Vent setting AC/VC 10/500/60% PEEP8. At this time RR16, return TV 392 to 485, MV 6.6 to 7.2, O2sat 98%, HR 79. Trach cuff appears inflated. ABG at 9pm 7.41, 41,273 on 100% FiO2. Unclear cause of previous dyssynchrony but appears now to be resolved. Cont on current vent settings Does not require a higher level of care at this time Consider ENT consult for trach revision if continues. Joanne Casarez, ACNP
[2016-11-02] MEDS: INSULIN SLIDING SCALE (NOVOLOG) 1 VIAL SQ SCH ×3 (05:51→17:35)
[2016-11-02] MEDS: METOPROLOL TARTRATE 25 MG TABLET (FP) PO SCH ×2 (05:51→15:48)
[2016-11-02] MEDS: INSULIN DETEMIR 100 UNITS/ML MDV SQ SCH ×2 (05:59→17:35)
[2016-11-02] MEDS: ALBUTEROL SO4 2.5/IPRATROPIUM 0.5 INH SOL 3 ML VIAL.NEB. NEB SCH ×3 (06:40→17:57)
[2016-11-02 07:18] LABS: MCH 27.5 pg (25.7-33.7); MCHC 32.6 g/dl (32.0-35.9); MEAN CELL VOLUME 84.5 fl (80-96); MEAN PLT VOLUME 7.9 fl (7.5-11.1); PLATELET COUNT 408 K/MM3 (134-434); RDW 14.3 % (11.9-15.9); WHITE BLOOD COUNT 9.9 K/mm3 (4.0-10.0)
[2016-11-02 07:42] LABS: ALBUMIN 1.1 g/dl (3.4-5.0); ANION GAP 8 (8-16); BILIRUBIN,TOTAL 0.6 mg/dL (0.2-1.0); CO2 30 mmol/L (21-32); COCKROFT - GAULT 157; CREATININE 0.4 mg/dL (0.7-1.3); GLUCOSE,RANDOM 244 mg/dL (74-106); SGOT/AST 62 U/L (15-37); SGPT/ALT 59 U/L (12-78); TOT PROT 5.3 g/dl (6.4-8.2)
[2016-11-02 07:43] LABS: ALK PHOS 323 U/L (45-117)
--- NOTE | 2016-11-02 07:54 | PN ---
Progress Note (short form) - Note Progress Note: SUBJECTIVE: Patient seen and examined. Chart reviewed. Poorly responsive. Off antibiotics. Status post biliary drain yesterday. OBJECTIVE: Vital Signs - 8 hr 11/02/16 11/02/16 11/02/16 02:58 06:00 06:35 Temperature 98.2 F Pulse Rate 87 Respiratory 23 18 38 H Rate Blood Pressure 149/69 11/02/16 11/02/16 07:56 09:07 Temperature 97.5 F L Pulse Rate 80 Respiratory 22 19 Rate Blood Pressure 154/73 Intake & Output 11/01/16 11/02/16 11/02/16 23:59 07:59 15:59 Intake Total 320 780 Output Total 300 420 Balance 20 360 Intake: IVPB 100 Tube Feeding 120 600 Tube Irrigant 100 180 Output: Drainage 20 Right Abdomen 20 Urine 300 400 Palacio 300 400 Other: Voiding Method Indwelling Catheter Active Medications Acetaminophen (Tylenol Suppository -) 650 mg [place] Q6H PRN PRN Reason: FEVER OR PAIN Albuterol Sulfate (Ventolin 0.083% Nebulizer Soln -) 1 amp NEB Q4H PRN PRN Reason: SHORT OF BREATH/WHEEZING Last Admin: 10/30/16 15:57 Dose: 1 amp Albuterol/Ipratropium (Duoneb -) 1 amp NEB QIDR [facility] Last Admin: 11/02/16 06:40 Dose: 1 amp Aspirin (Asa -) 81 mg PO DAILY [facility] Atorvastatin Calcium (Lipitor -) 40 mg PO HS [facility] Last Admin: 11/01/16 23:50 Dose: 40 mg Chlorhexidine Gluconate (Peridex -) 15 ml MM BID [facility] Last Admin: 11/01/16 23:50 Dose: 15 ml Pantoprazole Sodium (Protonix 40mg Ivpb (Pre-Docked)) 100 mls @ 200 mls/hr IVPB DAILY [facility] Last Admin: 11/01/16 13:30 Dose: 200 mls/hr Insulin Aspart (Novolog Vial Sliding Scale -) 1 vial SQ Q6HPO [facility] PRN Reason: Protocol Last Admin: 11/02/16 05:51 Dose: 4 units Insulin Detemir (Levemir Vial) 10 units SQ BIDI [facility] Last Admin: 11/02/16 05:59 Dose: 10 units Metoprolol Tartrate (Lopressor -) 25 mg PO TID [facility] Last Admin: 11/02/16 05:51 Dose: 25 mg Metoprolol Tartrate (Lopressor Injection -) 5 mg IVPUSH Q6H PRN PRN Reason: HYPERTENSION CBC, BMP 11/02/16 06:15 11/02/16 06:15 Laboratory Results - last 24 hr 11/01/16 11/01/16 11/01/16 12:19 17:09 21:30 WBC RBC Hgb Hct MCV MCHC RDW Plt Count MPV Puncture Site Left radial ABG pH 7.41 ABG pCO2 at Pt Temp 46.2 H ABG pO2 at Pt Temp 273.0 H* D ABG HCO3 29.0 H ABG O2 Sat (Measured) 100.0 H* ABG O2 Content 14.3 L ABG Base Excess 4.3 H Alexandro Test Positive O2 Delivery Device Vent Oxygen Flow Rate 100% Vent Mode Ac Vent Rate 12 Mechanical Rate Y PEEP 8.0 Pressure Support Vent 500 Sodium Potassium Chloride Carbon Dioxide Anion Gap BUN Creatinine Creat Clearance w eGFR POC Glucometer 122 139 Random Glucose Calcium Total Bilirubin AST ALT Alkaline Phosphatase Total Protein Albumin 11/01/16 11/02/16 11/02/16 23:56 05:50 06:15 WBC 9.9 D RBC 3.46 L Hgb 9.5 L Hct 29.2 L MCV 84.5 MCHC 32.6 RDW 14.3 Plt Count 408 MPV 7.9 Puncture Site ABG pH ABG pCO2 at Pt Temp ABG pO2 at Pt Temp ABG HCO3 ABG O2 Sat (Measured) ABG O2 Content ABG Base Excess Alexandro Test O2 Delivery Device Oxygen Flow Rate Vent Mode Vent Rate Mechanical Rate PEEP Pressure Support Vent Sodium Potassium Chloride Carbon Dioxide Anion Gap BUN Creatinine Creat Clearance w eGFR POC Glucometer 183 227 Random Glucose Calcium Total Bilirubin AST ALT Alkaline Phosphatase Total Protein Albumin 11/02/16 06:15 WBC RBC Hgb Hct MCV MCHC RDW Plt Count MPV Puncture Site ABG pH ABG pCO2 at Pt Temp ABG pO2 at Pt Temp ABG HCO3 ABG O2 Sat (Measured) ABG O2 Content ABG Base Excess Alexandro Test O2 Delivery Device Oxygen Flow Rate Vent Mode Vent Rate Mechanical Rate PEEP Pressure Support Vent Sodium 141 Potassium 4.3 Chloride 103 Carbon Dioxide 30 Anion Gap 8 BUN 15 D Creatinine 0.4 L Creat Clearance w eGFR > 60 POC Glucometer Random Glucose 244 H D Calcium 8.0 L Total Bilirubin 0.6 D AST 62 H D ALT 59 Alkaline Phosphatase 323 H Total Protein 5.3 L Albumin 1.1 L PHYSICAL EXAMINATION: Constitutional: Yes: Poorly responsive. Other (trach) Cardiovascular: Yes: Regular Rate and Rhythm Respiratory: Yes: Diminished Gastrointestinal: Yes: Normal Bowel Sounds, Soft, Other (peg). No: Distention, Tenderness Edema: Yes Edema: LLE: Trace, RLE: Trace ASSESSMENT & PLAN: - Status post gallbladder drain. - Continue present care. - Pulmonary to follow. - Off antibiotics. - Overall condition is stable but guarded. - Will follow. Documentation prepared by Rowan Funes, acting as a medical billing clerk for Regina Jones MD. <Rowan Funes - Last Filed: 11/02/16 10:28> Problem List - Problems (1) Acute respiratory failure with hypoxia Code(s): J96.01 - ACUTE RESPIRATORY FAILURE WITH HYPOXIA (2) Cerebrovascular disease Code(s): I67.9 - CEREBROVASCULAR DISEASE, UNSPECIFIED (3) Cerebrovascular small vessel disease Code(s): I67.9 - CEREBROVASCULAR DISEASE, UNSPECIFIED (4) Healthcare-associated pneumonia Code(s): J18.9 - PNEUMONIA, UNSPECIFIED ORGANISM (5) Sepsis Code(s): A41.9 - SEPSIS, UNSPECIFIED ORGANISM Qualifiers: Sepsis type: sepsis due to unspecified organism Qualified Code(s): A41.9 - Sepsis, unspecified organism (6) Alzheimer disease Code(s): G30.9 - ALZHEIMER'S DISEASE, UNSPECIFIED Qualifiers: Alzheimer's disease onset: early-onset Dementia behavioral disturbance : without behavioral disturbance Qualified Code(s): G30.0 - Alzheimer's disease with early onset; F02.81 - Dementia in other diseases classified elsewhere with behavioral disturbance (7) Lactic acid blood increased Code(s): R79.89 - OTHER SPECIFIED ABNORMAL FINDINGS OF BLOOD CHEMISTRY (8) Cholecystitis Code(s): K81.9 - CHOLECYSTITIS, UNSPECIFIED <Regina Jones - Last Filed: 11/02/16 07:54>
[2016-11-02] MEDS ORDERED: ASPIRIN 81 MG CHEWABLE TABLETS PO SCH (10:00)
[2016-11-02] MEDS: PANTOPRAZOLE SODIUM 100 ML IVPB SCH (10:47)
[2016-11-02] MEDS: CHLORHEXIDINE GLUCONATE 0.12% 15ML CUP MM SCH (10:47)
--- NOTE | 2016-11-02 12:52 | PN ---
Progress Note, Physician History of Present Illness: PULMONARY NO CHANGE POORLY RESPONSIVE ON VENT SUPPORT,-RESP DISTRESS - Current Medication List Current Medications: Active Medications Acetaminophen (Tylenol Suppository -) 650 mg SC Q6H PRN PRN Reason: FEVER OR PAIN Albuterol Sulfate (Ventolin 0.083% Nebulizer Soln -) 1 amp NEB Q4H PRN PRN Reason: SHORT OF BREATH/WHEEZING Last Admin: 10/30/16 15:57 Dose: 1 amp Albuterol/Ipratropium (Duoneb -) 1 amp NEB QIDR [facility] Last Admin: 11/02/16 11:10 Dose: 1 amp Aspirin (Asa -) 81 mg PO DAILY [facility] Last Admin: 11/02/16 10:46 Dose: 81 mg Atorvastatin Calcium (Lipitor -) 40 mg PO HS [facility] Last Admin: 11/01/16 23:50 Dose: 40 mg Chlorhexidine Gluconate (Peridex -) 15 ml MM BID [facility] Last Admin: 11/02/16 10:47 Dose: 15 ml Pantoprazole Sodium (Protonix 40mg Ivpb (Pre-Docked)) 100 mls @ 200 mls/hr IVPB DAILY [facility] Last Admin: 11/02/16 10:47 Dose: 200 mls/hr Insulin Aspart (Novolog Vial Sliding Scale -) 1 vial SQ Q6HPO [facility] PRN Reason: Protocol Last Admin: 11/02/16 12:00 Dose: 4 units Insulin Detemir (Levemir Vial) 10 units SQ BIDI [facility] Last Admin: 11/02/16 05:59 Dose: 10 units Metoprolol Tartrate (Lopressor -) 25 mg PO TID [facility] Last Admin: 11/02/16 05:51 Dose: 25 mg Metoprolol Tartrate (Lopressor Injection -) 5 mg IVPUSH Q6H PRN PRN Reason: HYPERTENSION - Objective Vital Signs: Vital Signs Temperature 97.5 F L 11/02/16 09:07 Pulse Rate 80 11/02/16 10:33 Respiratory Rate 27 H 11/02/16 10:33 Blood Pressure 154/73 11/02/16 09:07 O2 Sat by Pulse Oximetry (%) 96 11/02/16 10:33 Constitutional: Yes: Well Nourished, Other (POORLY RESPONSIVE) Eyes: Yes: WNL HENT: Yes: WNL Neck: Yes: WNL (TRACH) Cardiovascular: Yes: Regular Rate and Rhythm, S1, S2 Respiratory: Yes: Rhonchi (FEW RHONCHI) Gastrointestinal: Yes: Soft Extremities: Yes: WNL Edema: Yes Labs: CBC, BMP 11/02/16 06:15 11/02/16 06:15 INR, PTT INR 1.24 (0.82-1.09) H 10/29/16 05:15 Problem List - Problems (1) Acute respiratory failure with hypoxia Code(s): J96.01 - ACUTE RESPIRATORY FAILURE WITH HYPOXIA (2) Cerebrovascular disease Code(s): I67.9 - CEREBROVASCULAR DISEASE, UNSPECIFIED (3) Cerebrovascular small vessel disease Code(s): I67.9 - CEREBROVASCULAR DISEASE, UNSPECIFIED (4) Cholecystitis with cholelithiasis Code(s): K80.10 - CALCULUS OF GALLBLADDER W CHRONIC CHOLECYST W/O OBSTRUCTION Qualifiers: Cholelithiasis location: gallbladder Cholecystitis acuity: acute Biliary obstruction: without biliary obstruction Qualified Code(s): K80.00 - Calculus of gallbladder with acute cholecystitis without obstruction (5) Encephalopathy acute Code(s): G93.40 - ENCEPHALOPATHY, UNSPECIFIED (6) Respiratory failure Code(s): J96.90 - RESPIRATORY FAILURE, UNSP, UNSP W HYPOXIA OR HYPERCAPNIA Qualifiers: Chronicity: acute Respiratory failure complication: hypoxia Qualified Code(s): J96.01 - Acute respiratory failure with hypoxia (7) Sepsis Code(s): A41.9 - SEPSIS, UNSPECIFIED ORGANISM Qualifiers: Sepsis type: sepsis due to unspecified organism Qualified Code(s): A41.9 - Sepsis, unspecified organism (8) Septic shock Code(s): A41.9 - SEPSIS, UNSPECIFIED ORGANISM R65.21 - SEVERE SEPSIS WITH SEPTIC SHOCK (9) Alzheimer disease Code(s): G30.9 - ALZHEIMER'S DISEASE, UNSPECIFIED Qualifiers: Alzheimer's disease onset: early-onset Dementia behavioral disturbance : without behavioral disturbance Qualified Code(s): G30.0 - Alzheimer's disease with early onset; F02.81 - Dementia in other diseases classified elsewhere with behavioral disturbance (10) Lactic acid blood increased Code(s): R79.89 - OTHER SPECIFIED ABNORMAL FINDINGS OF BLOOD CHEMISTRY Assessment/Plan A/P Acute Hypoxic Respiratory Failure s/p Tracheostomy Pneumonia Recent Influenza s/p Severe Sepsis Acute Kidney Injury improving Lactic Acidosis resolved +Troponins - ?Demand Ischemia from Sepsis LV Systolic Heart Failure HTN CAD DM Dementia r/o Acute Cholecystitis - antibiotics per ID - monitor urine output, creatinine - ASA, beta regina - taper Fio2, PEEP to keep Spo2 >90% - start spontaneous breathing trials as tolerated when mental status improves and less oxygen requirements - DVT/GI prophylaxis DR UNDERWOOD
--- NOTE | 2016-11-02 13:23 | PN ---
Progress Note (short form) - Note Progress Note: seen and examined. called for difficulty maintaining tidal volume. opened eyes to name and stimulation. not following commands. afeb. rrr. b/l rhonchi. trach balloon intact. cholecystomy tube. nt, nd. + edema. no c/c. CBC, BMP 11/02/16 06:15 11/02/16 06:15 Vital Signs (72 hours) 10/30/16 10/30/16 10/30/16 14:07 15:00 15:45 Temperature 98.8 F Pulse Rate 84 88 Pulse Rate [ Left Lower Arm] Respiratory 12 19 24 Rate Respiratory Rate [Left Lower Arm] Blood Pressure 131/70 130/60 Blood Pressure [Left Lower Arm ] O2 Sat by Pulse Oximetry (%) O2 Sat by Pulse Oximetry (%) [ Left Lower Arm] 10/30/16 10/30/16 10/30/16 18:04 18:14 19:00 Temperature 98.3 F Pulse Rate 83 76 Pulse Rate [ Left Lower Arm] Respiratory 22 24 Rate Respiratory Rate [Left Lower Arm] Blood Pressure 116/59 Blood Pressure [Left Lower Arm ] O2 Sat by Pulse 99 Oximetry (%) O2 Sat by Pulse Oximetry (%) [ Left Lower Arm] 10/30/16 10/30/16 10/30/16 21:00 22:09 23:17 Temperature Pulse Rate 76 Pulse Rate [ Left Lower Arm] Respiratory 18 20 Rate Respiratory Rate [Left Lower Arm] Blood Pressure 141/56 Blood Pressure [Left Lower Arm ] O2 Sat by Pulse 98 Oximetry (%) O2 Sat by Pulse Oximetry (%) [ Left Lower Arm] 10/31/16 10/31/16 10/31/16 02:30 06:00 06:50 Temperature 97.8 F Pulse Rate 77 Pulse Rate [ Left Lower Arm] Respiratory 22 20 22 Rate Respiratory Rate [Left Lower Arm] Blood Pressure 147/65 Blood Pressure [Left Lower Arm ] O2 Sat by Pulse Oximetry (%) O2 Sat by Pulse Oximetry (%) [ Left Lower Arm] 10/31/16 10/31/16 10/31/16 09:00 10:22 13:55 Temperature Pulse Rate 87 Pulse Rate [ Left Lower Arm] Respiratory 18 20 Rate Respiratory Rate [Left Lower Arm] Blood Pressure Blood Pressure [Left Lower Arm ] O2 Sat by Pulse 96 97 Oximetry (%) O2 Sat by Pulse Oximetry (%) [ Left Lower Arm] 10/31/16 10/31/16 10/31/16 15:31 17:43 19:00 Temperature 99.1 F Pulse Rate 77 81 Pulse Rate [ Left Lower Arm] Respiratory 19 20 Rate Respiratory Rate [Left Lower Arm] Blood Pressure 147/72 138/65 Blood Pressure [Left Lower Arm ] O2 Sat by Pulse Oximetry (%) O2 Sat by Pulse Oximetry (%) [ Left Lower Arm] 10/31/16 10/31/16 11/01/16 21:01 23:00 01:08 Temperature 98.9 F Pulse Rate 80 Pulse Rate [ Left Lower Arm] Respiratory 22 18 21 Rate Respiratory Rate [Left Lower Arm] Blood Pressure 150/67 Blood Pressure [Left Lower Arm ] O2 Sat by Pulse Oximetry (%) O2 Sat by Pulse Oximetry (%) [ Left Lower Arm] 11/01/16 11/01/16 11/01/16 05:23 06:32 09:00 Temperature 99.1 F 98.8 F Pulse Rate 70 90 Pulse Rate [ Left Lower Arm] Respiratory 18 16 18 Rate Respiratory Rate [Left Lower Arm] Blood Pressure 142/64 138/66 Blood Pressure [Left Lower Arm ] O2 Sat by Pulse Oximetry (%) O2 Sat by Pulse Oximetry (%) [ Left Lower Arm] 11/01/16 11/01/16 11/01/16 10:25 11:02 11:10 Temperature Pulse Rate 81 81 Pulse Rate [ 80 Left Lower Arm] Respiratory 19 12 Rate Respiratory 12 Rate [Left Lower Arm] Blood Pressure 147/79 Blood Pressure 147/79 [Left Lower Arm ] O2 Sat by Pulse 98 97 Oximetry (%) O2 Sat by Pulse 100 Oximetry (%) [ Left Lower Arm] 11/01/16 11/01/16 11/01/16 11:20 12:30 14:01 Temperature 99.1 F Pulse Rate 81 84 Pulse Rate [ Left Lower Arm] Respiratory 12 18 21 Rate Respiratory Rate [Left Lower Arm] Blood Pressure 145/79 140/69 Blood Pressure [Left Lower Arm ] O2 Sat by Pulse 100 Oximetry (%) O2 Sat by Pulse Oximetry (%) [ Left Lower Arm] 11/01/16 11/01/16 11/01/16 17:36 19:00 20:15 Temperature 98.8 F Pulse Rate 85 Pulse Rate [ Left Lower Arm] Respiratory 15 18 42 H Rate Respiratory Rate [Left Lower Arm] Blood Pressure 132/74 Blood Pressure [Left Lower Arm ] O2 Sat by Pulse Oximetry (%) O2 Sat by Pulse Oximetry (%) [ Left Lower Arm] 11/01/16 11/01/16 11/02/16 22:00 23:10 01:14 Temperature 98.9 F Pulse Rate 92 H Pulse Rate [ Left Lower Arm] Respiratory 16 44 H 38 H Rate Respiratory Rate [Left Lower Arm] Blood Pressure 153/76 Blood Pressure [Left Lower Arm ] O2 Sat by Pulse 97 Oximetry (%) O2 Sat by Pulse Oximetry (%) [ Left Lower Arm] 11/02/16 11/02/16 11/02/16 02:00 02:58 06:00 Temperature 98.7 F 98.2 F Pulse Rate 86 87 Pulse Rate [ Left Lower Arm] Respiratory 16 23 18 Rate Respiratory Rate [Left Lower Arm] Blood Pressure 142/69 149/69 Blood Pressure [Left Lower Arm ] O2 Sat by Pulse Oximetry (%) O2 Sat by Pulse Oximetry (%) [ Left Lower Arm] 11/02/16 11/02/16 11/02/16 06:35 07:56 09:07 Temperature 97.5 F L Pulse Rate 80 Pulse Rate [ Left Lower Arm] Respiratory 38 H 22 19 Rate Respiratory Rate [Left Lower Arm] Blood Pressure 154/73 Blood Pressure [Left Lower Arm ] O2 Sat by Pulse Oximetry (%) O2 Sat by Pulse Oximetry (%) [ Left Lower Arm] 11/02/16 10:33 Temperature Pulse Rate 80 Pulse Rate [ Left Lower Arm] Respiratory 27 H Rate Respiratory Rate [Left Lower Arm] Blood Pressure Blood Pressure [Left Lower Arm ] O2 Sat by Pulse 96 Oximetry (%) O2 Sat by Pulse Oximetry (%) [ Left Lower Arm] a/p 86 yo, m, resp failure, s/p trach. appears to have difficulty of maintaining tv. ?etiology. 1. cont supp care. wean vent as ceci. 2. fb, bronch washing, and exchange of trach tube 3. d/w. dr. hedrick (pul) 4. will follow Problem List - Problems (1) Acute respiratory failure with hypoxia Code(s): J96.01 - ACUTE RESPIRATORY FAILURE WITH HYPOXIA
--- NOTE | 2016-11-02 13:33 | OP ---
Operative Note - Note: Operative Date: 11/02/16 Pre-Operative Diagnosis: respiratory failure, s/p trach, and difficulty maintaining tidal volume Operation: fb, bronch washing, and exchange of tracheostomy tube Findings: see dictation Post-Operative Diagnosis: Same as Pre-op Surgeon: Ishan Galloway Electronic Service Technician: Royal Pruett Operative Report Dictated: Yes
--- NOTE | 2016-11-02 13:33 | DS ---
Physical Examination Vital Signs: Vital Signs Temperature 97.5 F L 11/02/16 09:07 Pulse Rate 80 11/02/16 10:33 Respiratory Rate 27 H 11/02/16 10:33 Blood Pressure 154/73 11/02/16 09:07 O2 Sat by Pulse Oximetry (%) 96 11/02/16 10:33 Findings/Remarks: see today progress note Labs: CBC, BMP 11/02/16 06:15 11/02/16 06:15 Discharge Summary Reason For Visit: SEPSIS,HYPOXIA,RESPIRATORY FAILURE Current Active Problems Acute respiratory failure with hypoxia (Acute) Cerebrovascular disease (Acute) Cerebrovascular small vessel disease (Acute) Cholecystitis (Acute) Cholecystitis with cholelithiasis (Acute) Encephalopathy acute (Acute) Healthcare-associated pneumonia (Acute) Respiratory failure (Acute) Sepsis (Acute) Septic shock (Acute) Hospital Course: admitted due to fever/ sepsis/ had recent influenza hospital course complicated by respiratory failure pt remained critically ill-- in icu end up having trach/ peg followed by critical team. pt also developed cholecystitis-- has drainage done yesterday as not surgical candidate due to multiple comorbidities. will send to [facility] today--cleared by pulmonary. Trach tube also adjusted today. Family also in agreement Condition gaurded but stable Discussed with nursing staff. meds reconcilled. discharge time 35 min in exam/ cordating care as well as documentation Condition: Guarded - Instructions Referrals: Sloane Phillips MD [Primary Care Provider] - [facility] - Home Medications Comprehensive Discharge Medication List: Ambulatory Orders Acetaminophen [Tylenol] 650 mg PO Q6H PRN 10/08/16 Aspirin [ASA -] 81 mg PO DAILY 10/08/16 Cyanocobalamin Vit B-12 Inj. [Vitamin B12 Injection -] 1,000 mcg IM ASDIR Albuterol 0.083% Nebulizer Princess [Ventolin 0.083% Nebulizer Soln -] 1 amp NEB QIDR #20 amp 10/11/16 Atorvastatin Ca [Lipitor] 40 mg PO HS tablet 11/02/16 Chlorhexidine Gluconate [Peridex -] 15 ml MM BID #30 cap 11/02/16 Insulin (Levemir) [Levemir Vial] 10 units SQ BIDI #1 ml 11/02/16 Insulin Sliding Scale [Novolog Vial Sliding Scale -] 1 vial SQ Q6HPO units Metoprolol Tartrate [Lopressor -] 25 mg PO TID #60 tablet 11/02/16
--- NOTE | 2016-11-02 14:46 | PN ---
Progress Note (short form) - Note Progress Note: s/p IR drainage of gallbladder yesterday remains unresponsive Vital Signs Period Temp Pulse Resp BP Sys/M[place]ado Pulse Ox Last 24 Hr 97.5 F-98.9 F 80-92 15-44 132-154/69-76 96-97 cor-rrr lungs clear abd soft, RUQ drain with bile, +GT ext no edema CBC, BMP 11/02/16 06:15 11/02/16 06:15 Microbiology 11/01/16 11:00 Gram Stain - Final Bile Body Fluid Culture - Preliminary NO AEROBIC GROWTH, 24 HRS a/p s/p placement of biliary drain s/p 10 days imipenem stable off antibiotics, please call back if needed resp failure
--- NOTE | 2016-11-02 15:57 | PN ---
Progress Note (short form) - Note Progress Note: Noted to have intermittent loss of tidal volume by staff over the past few days. Percutaneous Trach changed to a size 8 XLT at the bedside by CTS with my assistance. No complications. Exhaled VT appropriate. O2 saturation 100% post procedure. OBJECTIVE: Intake & Output 10/30/16 10/31/16 11/01/16 11/02/16 23:59 23:59 23:59 23:59 Intake Total 240 620 320 780 Output Total 900 2100 1000 620 Balance -660 -1480 -680 160 Last Vital Signs Temp Pulse Resp BP Pulse Ox 97.5 F L 80 21 154/73 96 11/02/16 09:07 11/02/16 10:33 11/02/16 14:00 11/02/16 09:07 11/02/16 10:33 Active Medications Acetaminophen (Tylenol Suppository -) 650 mg [place] Q6H PRN PRN Reason: FEVER OR PAIN Albuterol Sulfate (Ventolin 0.083% Nebulizer Soln -) 1 amp NEB Q4H PRN PRN Reason: SHORT OF BREATH/WHEEZING Last Admin: 10/30/16 15:57 Dose: 1 amp Albuterol/Ipratropium (Duoneb -) 1 amp NEB QIDR [facility] Last Admin: 11/02/16 11:10 Dose: 1 amp Aspirin (Asa -) 81 mg PO DAILY [facility] Last Admin: 11/02/16 10:46 Dose: 81 mg Atorvastatin Calcium (Lipitor -) 40 mg PO HS [facility] Last Admin: 11/01/16 23:50 Dose: 40 mg Chlorhexidine Gluconate (Peridex -) 15 ml MM BID [facility] Last Admin: 11/02/16 10:47 Dose: 15 ml Pantoprazole Sodium (Protonix 40mg Ivpb (Pre-Docked)) 100 mls @ 200 mls/hr IVPB DAILY [facility] Last Admin: 11/02/16 10:47 Dose: 200 mls/hr Insulin Aspart (Novolog Vial Sliding Scale -) 1 vial SQ Q6HPO [facility] PRN Reason: Protocol Last Admin: 11/02/16 12:00 Dose: 4 units Insulin Detemir (Levemir Vial) 10 units SQ BIDI [facility] Last Admin: 11/02/16 05:59 Dose: 10 units Metoprolol Tartrate (Lopressor -) 25 mg PO TID [facility] Last Admin: 11/02/16 15:48 Dose: 25 mg Metoprolol Tartrate (Lopressor Injection -) 5 mg IVPUSH Q6H PRN PRN Reason: HYPERTENSION Gen: trached, poorly responsive Heart: RRR Lung: scattered rhonchi Abd: soft, nontender Ext: + edema Laboratory Results - last 24 hr 11/01/16 11/01/16 11/01/16 17:09 21:30 23:56 WBC RBC Hgb Hct MCV MCHC RDW Plt Count MPV Puncture Site Left radial ABG pH 7.41 ABG pCO2 at Pt Temp 46.2 H ABG pO2 at Pt Temp 273.0 H* D ABG HCO3 29.0 H ABG O2 Sat (Measured) 100.0 H* ABG O2 Content 14.3 L ABG Base Excess 4.3 H Alexandro Test Positive O2 Delivery Device Vent Oxygen Flow Rate 100% Vent Mode Ac Vent Rate 12 Mechanical Rate Y PEEP 8.0 Pressure Support Vent 500 Sodium Potassium Chloride Carbon Dioxide Anion Gap BUN Creatinine Creat Clearance w eGFR POC Glucometer 139 183 Random Glucose Calcium Total Bilirubin AST ALT Alkaline Phosphatase Total Protein Albumin 11/02/16 11/02/16 11/02/16 05:50 06:15 06:15 WBC 9.9 D RBC 3.46 L Hgb 9.5 L Hct 29.2 L MCV 84.5 MCHC 32.6 RDW 14.3 Plt Count 408 MPV 7.9 Puncture Site ABG pH ABG pCO2 at Pt Temp ABG pO2 at Pt Temp ABG HCO3 ABG O2 Sat (Measured) ABG O2 Content ABG Base Excess Alexandro Test O2 Delivery Device Oxygen Flow Rate Vent Mode Vent Rate Mechanical Rate PEEP Pressure Support Vent Sodium 141 Potassium 4.3 Chloride 103 Carbon Dioxide 30 Anion Gap 8 BUN 15 D Creatinine 0.4 L Creat Clearance w eGFR > 60 POC Glucometer 227 Random Glucose 244 H D Calcium 8.0 L Total Bilirubin 0.6 D AST 62 H D ALT 59 Alkaline Phosphatase 323 H Total Protein 5.3 L Albumin 1.1 L 11/02/16 11:58 WBC RBC Hgb Hct MCV MCHC RDW Plt Count MPV Puncture Site ABG pH ABG pCO2 at Pt Temp ABG pO2 at Pt Temp ABG HCO3 ABG O2 Sat (Measured) ABG O2 Content ABG Base Excess Alexandro Test O2 Delivery Device Oxygen Flow Rate Vent Mode Vent Rate Mechanical Rate PEEP Pressure Support Vent Sodium Potassium Chloride Carbon Dioxide Anion Gap BUN Creatinine Creat Clearance w eGFR POC Glucometer 226 Random Glucose Calcium Total Bilirubin AST ALT Alkaline Phosphatase Total Protein Albumin ASSESSMENT AND PLAN: Acute Hypoxic Respiratory Failure Pneumonia Recent Influenza Severe Sepsis Acute Kidney Injury improving Lactic Acidosis resolved +Troponins - ?Demand Ischemia from Sepsis LV Systolic Heart Failure HTN CAD DM Dementia S/P Trach change to XLT Current vent settings and management No Pulmonary contraindication for D/C to LTAC Dr Pruett
[2016-11-02 16:07] VITALS: BP 148/75; PULSE 85; TEMP 98.4
--- NOTE | 2016-11-02 17:47 | OP ---
DATE OF OPERATION: 11/02/2016 SURGEON: Ishan Galloway M.D. PRESCHOOL ASSISTANT: Royal Pruett M.D. PREOPERATIVE DIAGNOSIS: Respiratory failure, status post tracheostomy tube, and difficulty maintaining tidal volume. POSTOPERATIVE DIAGNOSIS: Respiratory failure, status post tracheostomy tube, and difficulty maintaining tidal volume. OPERATION: Flexible bronchoscopy, bronchial washing, and exchange of tracheostomy tube. COMPLICATIONS: None. INDICATION FOR SURGERY: The patient is an 86-year-old male who recently presented to [facility] with worsening shortness of breath. Patient subsequently developed respiratory failure and intubated. Patient underwent tracheostomy tube placement last week for prolonged ventilator supports. Thoracic surgery was consulted for aforementioned procedure. The risks, benefits, alternatives, and potential complications including but not limited to infection , bleeding, mucosal injuries, injury to other organs, pneumothorax, sepsis, respiratory failure, prolonged ventilatory support and were discussed with the patient 's family, and they agreed to proceed with surgical intervention. PROCEDURE: The patient remained in supine position on a mechanical ventilator. A flexible bronchoscopy was performed via existing tracheostomy tube. The patient was found to have moderate amount of mucus and blood clot in the right middle lobe and the left lower lobe bronchi. Using copious amount of normal saline, the entire area was irrigated and suctioned out. After the thorough irrigation, the trachea, main valerie, right mainstem bronchus, right upper lobe, bronchus intermedius, right middle lobe, right lower lobe, segmental and subsegmental airway patent with no endobronchial lesions or mucous plug. The left main stem bronchus, left upper lobe, lingula, left lower lobe, segmental and subsegmental airway patent with no endobronchial lesions or mucous plug. Next, using a Cook airway exchange catheter, the existing tracheostomy tube was replaced with #8 Shiley XLT tracheostomy tube with no complication. A flexible bronchoscopy was repeated and confirmed the tip of the tracheostomy tube and a complete hemostasis at the end of the case. The patient tolerated procedure well with no complications. The patient is maintaining a good tidal volume on mechanical ventilator. I, Dr. Ishan Galloway, was present for the entire procedure. Alex [id number] [facility]
--- NOTE | 2016-11-02 17:49 | PN ---
Progress Note, Physician - Current Medication List Current Medications: Active Medications Acetaminophen (Tylenol Suppository -) 650 mg VA Q6H PRN PRN Reason: FEVER OR PAIN Albuterol Sulfate (Ventolin 0.083% Nebulizer Soln -) 1 amp NEB Q4H PRN PRN Reason: SHORT OF BREATH/WHEEZING Last Admin: 10/30/16 15:57 Dose: 1 amp Albuterol/Ipratropium (Duoneb -) 1 amp NEB QIDR [facility] Last Admin: 11/02/16 11:10 Dose: 1 amp Aspirin (Asa -) 81 mg PO DAILY [facility] Last Admin: 11/02/16 10:46 Dose: 81 mg Atorvastatin Calcium (Lipitor -) 40 mg PO HS [facility] Last Admin: 11/01/16 23:50 Dose: 40 mg Chlorhexidine Gluconate (Peridex -) 15 ml MM BID [facility] Last Admin: 11/02/16 10:47 Dose: 15 ml Pantoprazole Sodium (Protonix 40mg Ivpb (Pre-Docked)) 100 mls @ 200 mls/hr IVPB DAILY [facility] Last Admin: 11/02/16 10:47 Dose: 200 mls/hr Insulin Aspart (Novolog Vial Sliding Scale -) 1 vial SQ Q6HPO [facility] PRN Reason: Protocol Last Admin: 11/02/16 17:35 Dose: 4 units Insulin Detemir (Levemir Vial) 10 units SQ BIDI [facility] Last Admin: 11/02/16 17:35 Dose: 10 units Metoprolol Tartrate (Lopressor -) 25 mg PO TID [facility] Last Admin: 11/02/16 15:48 Dose: 25 mg Metoprolol Tartrate (Lopressor Injection -) 5 mg IVPUSH Q6H PRN PRN Reason: HYPERTENSION - Objective Vital Signs: Vital Signs Temperature 98.4 F 11/02/16 16:04 Pulse Rate 85 11/02/16 16:04 Respiratory Rate 16 11/02/16 16:04 Blood Pressure 148/75 11/02/16 16:04 O2 Sat by Pulse Oximetry (%) 96 11/02/16 10:33 Labs: CBC, BMP 11/02/16 06:15 11/02/16 06:15 INR, PTT INR 1.24 (0.82-1.09) H 10/29/16 05:15 Problem List - Problems (1) Encephalopathy acute Code(s): G93.40 - ENCEPHALOPATHY, UNSPECIFIED (2) Cholecystitis with cholelithiasis Code(s): K80.10 - CALCULUS OF GALLBLADDER W CHRONIC CHOLECYST W/O OBSTRUCTION Qualifiers: Cholelithiasis location: gallbladder Cholecystitis acuity: acute Biliary obstruction: without biliary obstruction Qualified Code(s): K80.00 - Calculus of gallbladder with acute cholecystitis without obstruction (3) Respiratory failure Code(s): J96.90 - RESPIRATORY FAILURE, UNSP, UNSP W HYPOXIA OR HYPERCAPNIA Qualifiers: Chronicity: acute Respiratory failure complication: hypoxia Qualified Code(s): J96.01 - Acute respiratory failure with hypoxia (4) Sepsis Code(s): A41.9 - SEPSIS, UNSPECIFIED ORGANISM Qualifiers: Sepsis type: sepsis due to unspecified organism Qualified Code(s): A41.9 - Sepsis, unspecified organism Assessment/Plan S/P Percutaneous cholecystostomy. WBC has improved. Patient is being discharged Antibiotics as per ID.
== END 2016-11-02 18:09 | DRG 3 ==
LOC: JER 08:19 → JERBED 10:30 → JICU 11:15 → J5S 10-25 14:56 → JICU 10-25 15:00 → J5S 10-29 23:44
PROVIDERS: ADMIT Internal Medicine; ATTEND Internal Medicine
PROC: 5A1955Z Respiratory Ventilation, Greater than 96 Consecutive Hours (ICD-10-PCS; principal; 2016-10-15)
PROC: 0BH18EZ Insertion of Endotracheal Airway into Trachea, Via Natural or Artificial Opening Endoscopic (ICD-10-PCS; 2016-10-15)
PROC: 0DH63UZ Insertion of Feeding Device into Stomach, Percutaneous Approach (ICD-10-PCS; 2016-10-17)
PROC: 3E0G76Z Introduction of Nutritional Substance into Upper GI, Via Natural or Artificial Opening (ICD-10-PCS; 2016-10-17)
PROC: 0B113F4 Bypass Trachea to Cutaneous with Tracheostomy Device, Percutaneous Approach (ICD-10-PCS; 2016-10-25)
PROC: 0BJ08ZZ Inspection of Tracheobronchial Tree, Via Natural or Artificial Opening Endoscopic (ICD-10-PCS; 2016-10-25)
PROC: 3E1F88Z Irrigation of Respiratory Tract using Irrigating Substance, Via Natural or Artificial Opening Endoscopic (ICD-10-PCS; 2016-10-25)
PROC: 0FC Hepatobiliary System and Pancreas, Extirpation (ICD-10-PCS; 2016-11-01)
PROC: 0F9430Z Drainage of Gallbladder with Drainage Device, Percutaneous Approach (ICD-10-PCS; 2016-11-01)
PROC: 0BCD8ZZ Extirpation of Matter from Right Middle Lung Lobe, Via Natural or Artificial Opening Endoscopic (ICD-10-PCS; 2016-11-02)
PROC: 0BJ08ZZ Inspection of Tracheobronchial Tree, Via Natural or Artificial Opening Endoscopic (ICD-10-PCS; 2016-11-02)
PROC: 0B21XFZ Change Tracheostomy Device in Trachea, External Approach (ICD-10-PCS; 2016-11-02)
PROC: 0BCB8ZZ Extirpation of Matter from Left Lower Lobe Bronchus, Via Natural or Artificial Opening Endoscopic (ICD-10-PCS; 2016-11-02)
PROC: 0BW1XFZ Revision of Tracheostomy Device in Trachea, External Approach (ICD-10-PCS; 2016-11-02)
DX: A41.89 Other specified sepsis (principal); R65.21 Severe sepsis with septic shock; J96.01 Acute respiratory failure with hypoxia; E13.10 Other specified diabetes mellitus with ketoacidosis without coma; G93.40 Encephalopathy, unspecified; I21.4 Non-ST elevation (NSTEMI) myocardial infarction; J69.0 Pneumonitis due to inhalation of food and vomit; I50.21 Acute systolic (congestive) heart failure; E87.2 Acidosis; N17.9 Acute kidney failure, unspecified; E87.0 Hyperosmolality and hypernatremia; E87.3 Alkalosis; K81.0 Acute cholecystitis; J98.11 Atelectasis; T17.890A Other foreign object in other parts of respiratory tract causing asphyxiation, initial encounter; J95.812 Postprocedural air leak; K80.00 Calculus of gallbladder with acute cholecystitis without obstruction; E78.00 Pure hypercholesterolemia, unspecified; I25.10 Atherosclerotic heart disease of native coronary artery without angina pectoris; I48.91 Unspecified atrial fibrillation; D17.79 Benign lipomatous neoplasm of other sites; R76.11 Nonspecific reaction to tuberculin skin test without active tuberculosis; G30.8 Other Alzheimer's disease; F02.80 Dementia in other diseases classified elsewhere, unspecified severity, without behavioral disturbance, psychotic disturbance, mood disturbance, and anxiety; R00.0 Tachycardia, unspecified; I11.0 Hypertensive heart disease with heart failure; R13.19 Other dysphagia; K63.5 Polyp of colon; E88.09 Other disorders of plasma-protein metabolism, not elsewhere classified; X58.XXXA Exposure to other specified factors, initial encounter; Y93.89 Activity, other specified; Y92.238 Other place in hospital as the place of occurrence of the external cause; Z95.5 Presence of coronary angioplasty implant and graft; Z88.0 Allergy status to penicillin; Z87.891 Personal history of nicotine dependence; Z86.73 Personal history of transient ischemic attack (TIA), and cerebral infarction without residual deficits; Y83.8 Other surgical procedures as the cause of abnormal reaction of the patient, or of later complication, without mention of misadventure at the time of the procedure
CPT/HCPCS: 36415; 36600; 47490; 70450-TC; 71010-TC; 71250-TC; 74176-TC; 76705-TC; 80048; 80053; 80076; 81003; 81015; 82272; 82375; 82550; 82803; 83050; 83605; 83735; 84100; 84484; 85025; 85027; 85610; 85730; 86850; 86900; 86901; 87040; 87070; 87075; 87077; 87086; 87205; 87254; 87804; 87899; 93005; 93010; 93306-TC; 94002; 94640; 99285-25; C1894; G0480; J1644; Q9967

== ENCOUNTER 2016-12-07 09:42 | Inpatient (IN) | payer OTHER ==
[2016-12-07] MEDS: SODIUM CHLORIDE 0.9% 1000 ML INFUS.BAG IV PRN ×2 (10:50→11:55)
[2016-12-07 10:55] LABS: BASOPHIL 0.8 % (0-2.0); EOSINOPHIL 0.5 % (0-4.5); MCH 25.8 pg (25.7-33.7); MCHC 31.6 g/dl (32.0-35.9); MEAN CELL VOLUME 81.8 fl (80-96); MEAN PLT VOLUME 7.8 fl (7.5-11.1); NEUTROPHILS 82.9 % (42.8-82.8); PLATELET COUNT 582 K/MM3 (134-434); RDW 15.8 % (11.9-15.9); WHITE BLOOD COUNT 15.8 K/mm3 (4.0-10.0)
[2016-12-07 10:59] LABS: VENOUS PH 7.32 (7.32-7.42)
[2016-12-07 11:07] LABS: INR 1.22 (0.82-1.09); PROTHROMBIN TIME (PATIENT) 13.5 SEC (9.98-11.88)
[2016-12-07 11:09] LABS: URINE APPEARANCE CLOUDY; URINE BILIRUBIN NEGATIVE (NEGATIVE); URINE BLOOD NEGATIVE (NEGATIVE); URINE COLOR YELLOW; URINE GLUCOSE (UA) NEGATIVE (NEGATIVE); URINE KETONE 1+ (NEGATIVE); URINE NITRITE NEGATIVE (NEGATIVE); URINE UROBILINOGEN NEGATIVE E.U./dl (0.2-1.0)
[2016-12-07 11:11] LABS: URINE LEUK ESTERASE 1+ (NEGATIVE); URINE PROTEIN 2+ (NEGATIVE)
[2016-12-07] MEDS ORDERED: VANCOMYCIN 1,250 MG in DEXTROSE 5%-WATER - 250 ML IVPB ONE (11:13)
[2016-12-07 11:17] LABS: URINE BACTERIA RARE /hpf (NONE SEEN); URINE MUCUS RARE; URINE RBC 74 /hpf (0-3); URINE WBC 69 /hpf (3-5); YEAST FEW
[2016-12-07 11:18] LABS: ALBUMIN 2.3 g/dl (3.4-5.0); BILIRUBIN,TOTAL 0.4 mg/dL (0.2-1.0); CALCIUM 9.4 mg/dL (8.5-10.1); COCKROFT - GAULT 39.12; CREATININE 1.4 mg/dL (0.7-1.3); TOT PROT 8.1 g/dl (6.4-8.2)
[2016-12-07 11:21] LABS: TROPONIN I 0.04 ng/ml (0.00-0.05)
--- NOTE | 2016-12-07 11:44 | PDOC ---
History of Present Illness - History of Present Illness Initial Comments: 12/07/16 11:44 Patient is an 86 year old male with significant medical hx of HTN, HLD, CAD s/p bare metal stent placement, AFib, right atrial lipoma, latent TB, Alzheimers disease, and DM who is presenting to the ED via EMS from [facility] for respiratory distress. Patient was found desaturating to 71% and in respiratory distress by [facility] staff. Per EMS, the patient didnt respond to oxygen given by them. History was obtained from EMS and [facility] papers. Patient was recently discharged from admission from 10/15/16-11/02/16 for sepsis, hypoxia, and respiratory failure. During his admission, patient was admitted into the ICU and received a tracheostomy and peg tube. The patient also developed cholecystitis, with drainage done, but patient was not a surgical candidate due to multiple comorbidities. Allergies: penicillin PCP: Sloane Phillips MD <Mara Varghese - Last Filed: 12/07/16 11:55> <Tania Waddell - Last Filed: 12/07/16 12:29> - General Chief Complaint: Shortness of Breath Stated Complaint: Shortness of Breath Time Seen by Provider: 12/07/16 09:52 Past History <Mara Varghese - Last Filed: 12/07/16 11:55> - Past Medical History Cardiac Disorders: Yes (atrial fibrillation, arthrosclerotic heart diasease) COPD: Yes (intracranial hemorrhage) Dementia: Yes (Alzheimers) Diabetes: Yes HTN: Yes Hypercholesterolemia: Yes - Surgical History Cardiac Surgery: Yes (stent) - Psycho/Social/Smoking Cessation Hx Anxiety: No Suicidal Ideation: No Smoking History: Unknown if ever smoked Have you smoked in the past 12 months: No If you are a former smoker, when did you quit?: 1999 Information on smoking cessation initiated: No Hx Alcohol Use: No Drug/Substance Use Hx: No Substance Use Type: None Hx Substance Use Treatment: No <Tania Waddell - Last Filed: 12/07/16 12:29> - Past Medical History Allergies/Adverse Reactions: Allergies Allergy/AdvReac Type Severity Reaction Status Date / Time Penicillins Allergy Verified 12/07/16 10:05 Home Medications: Ambulatory Orders Amlodipine Besylate [Norvasc -] 5 mg PO BID 12/07/16 Ascorbic Acid [Vitamin C -] 500 mg PO BID 12/07/16 Aspirin [ASA -] 81 mg PO DAILY 12/07/16 Atorvastatin Ca [Lipitor] 40 mg PO HS 12/07/16 Chlorhexidine Gluconate [Peridex -] 15 ml MM BID 12/07/16 Clindamycin Phosphate 4 mg IJ TID 12/07/16 Enoxaparin [Lovenox -] 40 mg SQ DAILY 12/07/16 Famotidine [Pepcid -] 20 mg PO BID 12/07/16 Furosemide [Lasix -] 40 mg PO DAILY 12/07/16 Insulin (Levemir) [Levemir Vial] 10 units SQ BID 12/07/16 Lactobacillus Acidophilus [Acidophilus Lactobacilli] 2 each PO BID 12/07/16 Lisinopril [Zestril] 40 mg PO DAILY 12/07/16 Metoprolol Tartrate [Lopressor -] 50 mg PO DAILY 12/07/16 Multivitamin [Poly-Vitamin] 1 each PO DAILY 12/07/16 Scopolamine [Transderm-Scop] 1 each TD ASDIR 12/07/16 Spironolactone [Aldactone] 25 mg PO DAILY 12/07/16 Review of Systems - Review of Systems Comments:: 12/07/16 11:45 Unable to perform ROS due to patient mental status. <Mara Varghese - Last Filed: 12/07/16 11:55> *Physical Exam - Vital Signs Last Vital Signs Temp Pulse Resp BP Pulse Ox 100.8 F H 133 H 46 H 106/56 96 12/07/16 10:16 12/07/16 10:10 12/07/16 10:10 12/07/16 09:46 12/07/16 10:16 - Physical Exam Comments: 12/07/16 11:45 GENERAL: Unresponsive HEAD: No signs of trauma EYES: PERRLA, EOMI, sclera anicteric, conjunctiva clear ENT: Auricles normal inspection, hearing grossly normal, nares patent, oropharynx clear without exudates. Moist mucosa NECK: Normal ROM, supple, no lymphadenopathy, JVD, or masses LUNGS: Tracheostomy. Rhonchorous breath sounds bilaterally. Tachypneic with respiratory rate of 40. Using accessory muscles. No wheezes, and no crackles HEART: Regular rate and rhythm, normal S1 and S2, no murmurs, rubs or gallops ABDOMEN: Feeding tube in place. Drain to RUQ with bilious drainage. Soft, nontender, normoactive bowel sounds. No guarding, no rebound. No masses EXTREMITIES: Normal range of motion, no edema. No clubbing or cyanosis. No cords, erythema, or tenderness NEUROLOGICAL: Moving right upper extremity. Some spontaneous eye opening. Otherwise completely unresponsive. SKIN: Warm, Dry, normal turgor, no rashes or lesions noted. HEMATOLOGIC/LYMPHATIC: No anemia, easy bleeding, or history of blood clots. ALLERGIC/IMMUNOLOGIC: No hives or skin allergy. <Mara Varghese - Last Filed: 12/07/16 11:55> - Vital Signs Last Vital Signs Temp Pulse Resp BP Pulse Ox 100.8 F H 133 H 46 H 106/56 96 12/07/16 10:16 12/07/16 10:10 12/07/16 10:10 12/07/16 09:46 12/07/16 10:16 <Tania Waddell - Last Filed: 12/07/16 12:29> Heart Score/ECG Review #1 12/07/16 11:52 Sinus tachycardia at 130 bpm Left axis deviation Incomplete right bundle branch block ST & T wave abnormality, consider anterolateral ischemia Abnormal ECG <Mara Varghese - Last Filed: 12/07/16 11:55> ED Treatment Course - LABORATORY CBC & Chemistry Diagram: 12/07/16 10:30 12/07/16 10:30 - ADDITIONAL ORDERS Additional order review: Laboratory Results 12/07/16 12/07/16 12/07/16 11:00 10:45 10:30 INR PTT (Actin FS) VBG pH 7.32 POC VBG pCO2 53.2 H POC VBG pO2 33.2 Mixed VBG HCO3 27.0 H Sodium Potassium Chloride Carbon Dioxide Anion Gap BUN Creatinine Creat Clearance w eGFR Random Glucose Lactic Acid 3.4 H* Calcium Total Bilirubin AST ALT Alkaline Phosphatase Creatine Kinase Troponin I B-Natriuretic Peptide Total Protein Albumin Urine Color Yellow Urine Appearance Cloudy Urine pH 8.0 D Urine Protein 2+ H Urine Glucose (UA) Negative Urine Ketones 1+ H Urine Blood Negative Urine Nitrite Negative Urine Bilirubin Negative Urine Urobilinogen Negative Ur Leukocyte Esterase 1+ H Urine RBC 74 Urine WBC 69 Ur Epithelial Cells Rare Urine Bacteria Rare Urine Mucus Rare Urine Yeast Few 12/07/16 12/07/16 12/07/16 10:30 10:30 10:30 INR 1.22 H PTT (Actin FS) 28.2 VBG pH POC VBG pCO2 POC VBG pO2 Mixed VBG HCO3 Sodium 137 Potassium 4.4 Chloride 96 L Carbon Dioxide 28 Anion Gap 13 BUN 25 H D Creatinine 1.4 H D Creat Clearance w eGFR 48.05 Random Glucose 123 H D Lactic Acid Calcium 9.4 Total Bilirubin 0.4 D AST 34 D ALT 27 D Alkaline Phosphatase 126 H D Creatine Kinase 116 Troponin I 0.04 D B-Natriuretic Peptide 1283.55 H Total Protein 8.1 D Albumin 2.3 L D Urine Color Urine Appearance Urine pH Urine Protein Urine Glucose (UA) Urine Ketones Urine Blood Urine Nitrite Urine Bilirubin Urine Urobilinogen Ur Leukocyte Esterase Urine RBC Urine WBC Ur Epithelial Cells Urine Bacteria Urine Mucus Urine Yeast 12/07/16 10:30 RBC 4.17 D MCV 81.8 MCHC 31.6 L RDW 15.8 D MPV 7.8 Neutrophils % 82.9 H Lymphocytes % 11.6 D Monocytes % 4.2 Eosinophils % 0.5 Basophils % 0.8 - RADIOLOGY Radiograph Interpretation: 12/07/16 11:53 Chest X-Ray Impression: Left lower lobe consolidation and pleural effusion. Reported By: Tay Bright MD <Mara Varghese - Last Filed: 12/07/16 11:55> - LABORATORY CBC & Chemistry Diagram: 12/07/16 10:30 12/07/16 10:30 - ADDITIONAL ORDERS Additional order review: Laboratory Results 12/07/16 12/07/16 12/07/16 11:00 10:45 10:30 INR PTT (Actin FS) VBG pH 7.32 POC VBG pCO2 53.2 H POC VBG pO2 33.2 Mixed VBG HCO3 27.0 H Sodium Potassium Chloride Carbon Dioxide Anion Gap BUN Creatinine Creat Clearance w eGFR Random Glucose Lactic Acid 3.4 H* Calcium Total Bilirubin AST ALT Alkaline Phosphatase Creatine Kinase Troponin I B-Natriuretic Peptide Total Protein Albumin Urine Color Yellow Urine Appearance Cloudy Urine pH 8.0 D Urine Protein 2+ H Urine Glucose (UA) Negative Urine Ketones 1+ H Urine Blood Negative Urine Nitrite Negative Urine Bilirubin Negative Urine Urobilinogen Negative Ur Leukocyte Esterase 1+ H Urine RBC 74 Urine WBC 69 Ur Epithelial Cells Rare Urine Bacteria Rare Urine Mucus Rare Urine Yeast Few 12/07/16 12/07/16 12/07/16 10:30 10:30 10:30 INR 1.22 H PTT (Actin FS) 28.2 VBG pH POC VBG pCO2 POC VBG pO2 Mixed VBG HCO3 Sodium 137 Potassium 4.4 Chloride 96 L Carbon Dioxide 28 Anion Gap 13 BUN 25 H D Creatinine 1.4 H D Creat Clearance w eGFR 48.05 Random Glucose 123 H D Lactic Acid Calcium 9.4 Total Bilirubin 0.4 D AST 34 D ALT 27 D Alkaline Phosphatase 126 H D Creatine Kinase 116 Troponin I 0.04 D B-Natriuretic Peptide 1283.55 H Total Protein 8.1 D Albumin 2.3 L D Urine Color Urine Appearance Urine pH Urine Protein Urine Glucose (UA) Urine Ketones Urine Blood Urine Nitrite Urine Bilirubin Urine Urobilinogen Ur Leukocyte Esterase Urine RBC Urine WBC Ur Epithelial Cells Urine Bacteria Urine Mucus Urine Yeast 12/07/16 10:30 RBC 4.17 D MCV 81.8 MCHC 31.6 L RDW 15.8 D MPV 7.8 Neutrophils % 82.9 H Lymphocytes % 11.6 D Monocytes % 4.2 Eosinophils % 0.5 Basophils % 0.8 <Tania Waddell - Last Filed: 12/07/16 12:29> Medical Decision Making - Critical Care Time Total Critical Care Time (minutes): 30 Critical Care Statement: The care of this patient involved high complexity decision making to prevent further life threatening deterioration of the patient 's condition and/or to evalute & treat vital organ system(s) failure or risk of failure. <Mara Varghese - Last Filed: 12/07/16 11:55> - Critical Care Time Total Critical Care Time (minutes): 31 Critical Care Statement: The care of this patient involved high complexity decision making to prevent further life threatening deterioration of the patient 's condition and/or to evalute & treat vital organ system(s) failure or risk of failure. - Medical Decision Making 12/07/16 12:20 Patient presented to the ED in acute respiratory distress, with oxygen saturation in the 60's. Improved after suctioning and ventilation with ambu bag into the 70's. placed on ventilator and found to be leaking air from his trach. Attempted to re-inflate the balloon, found that the balloon would not hold air. OXygen saturation improved into the 90s when we left the syringe attached to the balloon. Pulmonary attending called--trach is an extra long trach that is special order and not carried in this institution. Patient required this trach because he was desaturating with a regular trach. ENT and CT surgeon internal controls analyst are unfamiliar with this trach and unable to replace it. I have paged Dr. Galloway, who placed the trach and am waiting for him to call back. Patient has a fever, elevated lactate and consolidation. Will treat for sepsis with vancomycin and aztreonam. Case discussed with hospitalist STRATEGIC ACCOUNT DIRECTOR who feels that the patient is too sick for the vent floor and has discussed patient with the critical care attending. Will admit to ICU. <Tania Waddell - Last Filed: 12/07/16 12:29> *DC/Admit/Observation/Transfer <Mara Varghese - Last Filed: 12/07/16 11:55> - Discharge Dispostion Admit: Yes <Tania Waddell - Last Filed: 12/07/16 12:29> Diagnosis at time of Disposition: Sepsis - Referrals Referrals: Iwona Prince MD [Primary Care Provider] -
[2016-12-07] MEDS ORDERED: ACETAMINOPHEN 1000 MG/100 ML VIAL (NON FORMULARY) IVPB PRN (12:51)
[2016-12-07] MEDS ORDERED: ACETAMINOPHEN 650 MG SUPP.RECT PR PRN (12:51)
[2016-12-07] MEDS ORDERED: AZTREONAM 1 GM in DEXTROSE 5%-WATER - 50 ML IVPB ONE (13:00)
--- NOTE | 2016-12-07 13:19 | PN ---
Progress Note (short form) - Note Progress Note: ID Consult dictated Selected Entries 12/07/16 12/07/16 12/07/16 10:10 10:16 10:46 Temperature 100.8 F H Pulse Rate [ 116 H Apical] Respiratory 46 H Rate Blood Pressure 112/68 [Right Arm] Trach Vent dependent Microbiology Laboratory Tests 12/07/16 12/07/16 12/07/16 10:30 10:30 10:30 WBC 15.8 H D Hgb 10.8 L D Hct 34.1 L D Plt Count 582 H D BUN 25 H D Creatinine 1.4 H D Lactic Acid 3.4 H* Alkaline Phosphatase 126 H D Urine WBC 12/07/16 11:00 WBC Hgb Hct Plt Count BUN Creatinine Lactic Acid Alkaline Phosphatase Urine WBC 69 Assessment Fever respiratory failure (chronic) Sepsis Plan Panculture and give vancomycin and Cefepime Mariana ALFONSO Problem List - Problems (1) Sepsis Code(s): A41.9 - SEPSIS, UNSPECIFIED ORGANISM Qualifiers: (2) Acute respiratory failure with hypoxia Code(s): J96.01 - ACUTE RESPIRATORY FAILURE WITH HYPOXIA
[2016-12-07] MEDS: PANTOPRAZOLE SODIUM 100 ML IVPB SCH (13:27)
[2016-12-07] MEDS: DEXTROSE 5%-NORMAL SALINE 1,000 ML IV SCH (13:27)
[2016-12-07] MEDS ORDERED: PANTOPRAZOLE SODIUM 100 ML IVPB ONE (13:28)
[2016-12-07 13:35] LABS: ALLENS TEST POSITIVE; ART PUNCT SITE LEFT RADIAL; ARTERIAL BLD GAS O2 SATURATION 99.3 % (90-98.9); ARTERIAL BLOOD GAS BASE EXCESS -0.9 meq/l (-2-2); ARTERIAL BLOOD GAS HCO3 22.9 meq/L (22-26); ARTERIAL BLOOD GAS pH 7.41 (7.35-7.45); LPM/O2% 100%; PT. ON O2? YES
[2016-12-07 13:36] LABS: MECH. VENT. Y; TYPE OF O2 VENT; VENT RATE 16; VT/PRESS 500
[2016-12-07] MEDS ORDERED: ACETAMINOPHEN INJECTION 100 ML IVPB ONE (14:04)
[2016-12-07 16:01] VITALS: BMI 26.6
--- NOTE | 2016-12-07 16:18 | CONSULT ---
Consultation: REQUESTING PROVIDER: CONSULT REQUEST: We have been asked to medically evaluate this patient for ( specify). HISTORY OF PRESENT ILLNESS: History was taken from medical records, pt is nonverbal. Patient is an 86 year old male with significant medical hx of HTN, HLD, CAD s/p bare metal stent placement, A.Fib, right atrial lipoma, latent TB, Alzheimers disease, and DM who is presenting to the ED via EMS from [facility] for respiratory distress. Patient was found desaturating to 70s by long-term staff. Per EMS, the patient didnt respond to oxygen. Patient was recently discharged from [facility] admission from -11/02/16 for sepsis, hypoxia, and respiratory failure. During his admission, patient was admitted into the ICU and received a tracheostomy and peg tube. The patient also developed cholecystitis, with drainage done, but patient was not a surgical candidate due to multiple comorbidities. He was discharged to [place]. Today he was found to have his tracheostomy tube leaking. Allergies: penicillin REVIEW OF SYSTEMS: NA, the pt is nonverbal PHYSICAL EXAMINATION Vital Signs - 24 hr 12/07/16 12/07/16 12/07/16 13:15 13:38 14:15 Temperature 100 F H Pulse Rate 107 H Pulse Rate [ 105 H 101 H Apical] Respiratory 28 H Rate Blood Pressure 100/57 105/68 [Right Arm] O2 Sat by Pulse 100 98 100 Oximetry (%) 12/07/16 12/07/16 14:47 15:00 Temperature Pulse Rate Pulse Rate [ Apical] Respiratory 26 H 36 H Rate Blood Pressure [Right Arm] O2 Sat by Pulse 100 Oximetry (%) GENERAL: The pt is on mechanical ventilation, nonverbal. HEAD: Normal with no signs of trauma. EYES: Pupils equal, round and reactive to light, eyes closed. EARS, NOSE, THROAT: Ears normal, nares patent. Moist mucous membranes. NECK: Normal range of motion, supple without lymphadenopathy, JVD, or masses. LUNGS: Breath sounds equal, coarse breath sounds bilaterally. No wheezes, and no crackles. No accessory muscle use. HEART: Regular rate and rhythm, normal S1 and S2 without murmur, rub or gallop. ABDOMEN: Soft, nontender, not distended, normoactive bowel sounds, no guarding, no rebound, no masses. No hepatomegaly or splenomegaly, peg tube and tube in RUQ drqining dark yellow fluid. MUSCULOSKELETAL: No bony deformities or tenderness. UPPER EXTREMITIES: warm, No cyanosis. No clubbing. No peripheral edema. LOWER EXTREMITIES: warm, No calf tenderness. No peripheral edema. NEUROLOGICAL: Sedated. SKIN: Warm, dry, normal turgor, no rashes or lesions noted, decubitus ulcer in sacral area. Laboratory Results - last 24 hr 12/07/16 13:30 Puncture Site Left radial ABG pH 7.41 ABG pCO2 at Pt Temp 36.8 D ABG pO2 at Pt Temp 144.0 H D ABG HCO3 22.9 ABG O2 Sat (Measured) 99.3 H ABG O2 Content 13.3 L ABG Base Excess -0.9 Alexandro Test Positive O2 Delivery Device Vent Oxygen Flow Rate 100% Vent Mode A/c Vent Rate 16 Mechanical Rate Y PEEP 5.0 Pressure Support Vent 500 Active Medications Generic Name Dose Route Start Last Admin Trade Name Freq PRN Reason Stop Dose Admin Acetaminophen 1,000 mg 12/07/16 12:51 12/07/16 13:55 Ofirmev Injection - IVPB 12/08/16 06:52 1,000 mg Q6H PRN Administration FEVER OR PAIN Acetaminophen 650 mg 12/07/16 12:51 Tylenol Suppository - [place] Q6H PRN FEVER OR PAIN Dextrose/Sodium Chloride 1,000 mls @ 83 mls/hr 12/07/16 13:00 12/07/16 13:27 D5-Ns - IV 83 mls/hr ASDIR KARLOS Administration Pantoprazole Sodium 100 mls @ 200 mls/hr 12/07/16 13:00 12/07/16 13:27 Protonix 40mg Ivpb (Pre-Docked) IVPB 200 mls/hr DAILY KARLOS Administration Vancomycin HCl 1,250 mg/ 250 mls @ 125 mls/hr 12/08/16 12:00 Dextrose IVPB DAILY@1200 KARLOS Protocol Cefepime HCl 2 gm/ Dextrose 100 mls @ 200 mls/hr 12/07/16 18:00 IVPB Q8H-IV KARLOS Sodium Chloride 1,000 ml 12/07/16 09:57 12/07/16 11:55 Normal Saline - IV 1,000 ml Q20M PRN Administration MAP<65mm Hg OR SBP <90 ASSESSMENT/PLAN: Patient is an 86 year old male with significant medical hx of HTN, HLD, CAD s/p bare metal stent placement, A.Fib, right atrial lipoma, latent TB, Alzheimers disease, and DM who is presenting to the ED via EMS from [facility] for respiratory distress. Patient was found desaturating to 70s by long-term staff. He was admitted for respiratory failure. Hypoxic Respiratory failure: possibly due to tracheostomy tube malfunction/possible PNA CXR indicates possible infiltrates on left side continue Oxygen Supplementation, cont. mech ventilation ordered new trach tube to be replaced continue Cefepime and Vancomycin ID consulted, will f/u recommendation Sepsis; possibly due to PNA/UTI/biliary source -cholecystectomy tube still in place CXR possible infiltrate, but pt is rotated, will repeat tomorrow tachycardia, hypoxia and leukocytosis continue antibiotics, blood cultures and urine cultures pending LA not elevated ID consulted A.Fib: continue home medications HTN: -cont home medications HDL: -cont home meds Alzheimers: cont home meds DVT PPX: SCds F/E/N: NPO for now/no changes/NS dextrose Dispo: We will continue to follow the patient. Thank you for this consultative opportunity. 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 - New Patient This patient is new to me today: Yes Date on this admission: 12/07/16 - Critical Care Critical Care patient: Yes Total Critical Care Time (in minutes): 50 Critical Care Statement: The care of this patient involved high complexity decision making to prevent further life threatening deterioration of the patient 's condition and/or to evalute & treat vital organ system(s) failure or risk of failure.
--- NOTE | 2016-12-07 16:24 | PN ---
Teaching Attending Note Name of Resident: Rashida Acuna ATTENDING PHYSICIAN STATEMENT I saw and evaluated the patient. I reviewed the resident's note and discussed the case with the resident. I agree with the resident's findings and plan as documented. SUBJECTIVE: Patient known to me from previous prolonged admission. Acute respiratory failure and biliary sepsis. Discharged to LTAC and then sent to [facility]. Now readmitted via the ER due to "leaking" Tracheostomy and Sepsis. Patient noted to still have his cholecystostomy tube in place. On inspection of the Trach, the balloon does lose some volume over time, but on his baseline vent settings he is able to maintain his minute ventilation. ABG does not reveal hypercapnia. CXR: Rotated / Trach intact / bases are visualized Intake & Output 12/04/16 12/05/16 12/06/16 12/07/16 23:59 23:59 23:59 23:59 Intake Total 1500 Output Total 200 Balance 1300 Weight 207 lb 0.225 oz Last Vital Signs Temp Pulse Resp BP Pulse Ox 100 F H 101 H 36 H 105/68 100 12/07/16 13:15 12/07/16 14:15 12/07/16 15:00 12/07/16 14:15 12/07/16 14:47 Active Medications Acetaminophen (Ofirmev Injection -) 1,000 mg IVPB Q6H PRN PRN Reason: FEVER OR PAIN Stop: 12/08/16 06:52 Last Admin: 12/07/16 13:55 Dose: 1,000 mg Acetaminophen (Tylenol Suppository -) 650 mg [place] Q6H PRN PRN Reason: FEVER OR PAIN Dextrose/Sodium Chloride (D5-Ns -) 1,000 mls @ 83 mls/hr IV ASDIR KARLOS Last Admin: 12/07/16 13:27 Dose: 83 mls/hr Pantoprazole Sodium (Protonix 40mg Ivpb (Pre-Docked)) 100 mls @ 200 mls/hr IVPB DAILY KARLOS Last Admin: 12/07/16 13:27 Dose: 200 mls/hr Vancomycin HCl 1,250 mg/ (Dextrose) 250 mls @ 125 mls/hr IVPB DAILY@1200 KARLOS PRN Reason: Protocol Cefepime HCl 2 gm/ Dextrose 100 mls @ 200 mls/hr IVPB Q8H-IV KARLOS Sodium Chloride (Normal Saline -) 1,000 ml IV Q20M PRN PRN Reason: MAP<65mm Hg OR SBP <90 Last Admin: 12/07/16 11:55 Dose: 1,000 ml GENERAL: Lethargic HEAD: No signs of trauma EYES: (-) Icterus, oropharynx clear without exudates. Moist mucosa NECK: Trach in place LUNGS: Bibasilar coarse rhonchi. No wheezes, and no crackles HEART: Regular rate and rhythm, normal S1 and S2, no murmurs, rubs or gallops ABDOMEN: Feeding tube in place. Drain to RUQ with bilious drainage. Soft, nontender, normoactive bowel sounds. No guarding, no rebound. No masses EXTREMITIES: Normal range of motion, no edema. No clubbing or cyanosis. No cords, erythema, or tenderness NEUROLOGICAL: Moving right upper extremity. Some spontaneous eye opening. SKIN: Warm, Dry, normal turgor, no rashes or lesions noted. HEMATOLOGIC/LYMPHATIC: No anemia, easy bleeding, or history of blood clots. ALLERGIC/IMMUNOLOGIC: No hives or skin allergy. Laboratory Results 12/07/16 12/07/16 12/07/16 11:00 10:45 10:30 INR PTT (Actin FS) VBG pH 7.32 POC VBG pCO2 53.2 H POC VBG pO2 33.2 Mixed VBG HCO3 27.0 H Sodium Potassium Chloride Carbon Dioxide Anion Gap BUN Creatinine Creat Clearance w eGFR Random Glucose Lactic Acid 3.4 H* Calcium Total Bilirubin AST ALT Alkaline Phosphatase Creatine Kinase Troponin I B-Natriuretic Peptide Total Protein Albumin Urine Color Yellow Urine Appearance Cloudy Urine pH 8.0 D Urine Protein 2+ H Urine Glucose (UA) Negative Urine Ketones 1+ H Urine Blood Negative Urine Nitrite Negative Urine Bilirubin Negative Urine Urobilinogen Negative Ur Leukocyte Esterase 1+ H Urine RBC 74 Urine WBC 69 Ur Epithelial Cells Rare Urine Bacteria Rare Urine Mucus Rare Urine Yeast Few 12/07/16 12/07/16 12/07/16 10:30 10:30 10:30 INR 1.22 H PTT (Actin FS) 28.2 VBG pH POC VBG pCO2 POC VBG pO2 Mixed VBG HCO3 Sodium 137 Potassium 4.4 Chloride 96 L Carbon Dioxide 28 Anion Gap 13 BUN 25 H D Creatinine 1.4 H D Creat Clearance w eGFR 48.05 Random Glucose 123 H D Lactic Acid Calcium 9.4 Total Bilirubin 0.4 D AST 34 D ALT 27 D Alkaline Phosphatase 126 H D Creatine Kinase 116 Troponin I 0.04 D B-Natriuretic Peptide 1283.55 H Total Protein 8.1 D Albumin 2.3 L D Urine Color Urine Appearance Urine pH Urine Protein Urine Glucose (UA) Urine Ketones Urine Blood Urine Nitrite Urine Bilirubin Urine Urobilinogen Ur Leukocyte Esterase Urine RBC Urine WBC Ur Epithelial Cells Urine Bacteria Urine Mucus Urine Yeast 12/07/16 10:30 RBC 4.17 D MCV 81.8 MCHC 31.6 L RDW 15.8 D MPV 7.8 Neutrophils % 82.9 H Lymphocytes % 11.6 D Monocytes % 4.2 Eosinophils % 0.5 Basophils % 0.8 Laboratory Results 12/07/16 12/07/16 12/07/16 11:00 10:45 10:30 INR PTT (Actin FS) VBG pH 7.32 POC VBG pCO2 53.2 H POC VBG pO2 33.2 Mixed VBG HCO3 27.0 H Sodium Potassium Chloride Carbon Dioxide Anion Gap BUN Creatinine Creat Clearance w eGFR Random Glucose Lactic Acid 3.4 H* Calcium Total Bilirubin AST ALT Alkaline Phosphatase Creatine Kinase Troponin I B-Natriuretic Peptide Total Protein Albumin Urine Color Yellow Urine Appearance Cloudy Urine pH 8.0 D Urine Protein 2+ H Urine Glucose (UA) Negative Urine Ketones 1+ H Urine Blood Negative Urine Nitrite Negative Urine Bilirubin Negative Urine Urobilinogen Negative Ur Leukocyte Esterase 1+ H Urine RBC 74 Urine WBC 69 Ur Epithelial Cells Rare Urine Bacteria Rare Urine Mucus Rare Urine Yeast Few 12/07/16 12/07/16 12/07/16 10:30 10:30 10:30 INR 1.22 H PTT (Actin FS) 28.2 VBG pH POC VBG pCO2 POC VBG pO2 Mixed VBG HCO3 Sodium 137 Potassium 4.4 Chloride 96 L Carbon Dioxide 28 Anion Gap 13 BUN 25 H D Creatinine 1.4 H D Creat Clearance w eGFR 48.05 Random Glucose 123 H D Lactic Acid Calcium 9.4 Total Bilirubin 0.4 D AST 34 D ALT 27 D Alkaline Phosphatase 126 H D Creatine Kinase 116 Troponin I 0.04 D B-Natriuretic Peptide 1283.55 H Total Protein 8.1 D Albumin 2.3 L D Urine Color Urine Appearance Urine pH Urine Protein Urine Glucose (UA) Urine Ketones Urine Blood Urine Nitrite Urine Bilirubin Urine Urobilinogen Ur Leukocyte Esterase Urine RBC Urine WBC Ur Epithelial Cells Urine Bacteria Urine Mucus Urine Yeast 12/07/16 10:30 RBC 4.17 D MCV 81.8 MCHC 31.6 L RDW 15.8 D MPV 7.8 Neutrophils % 82.9 H Lymphocytes % 11.6 D Monocytes % 4.2 Eosinophils % 0.5 Basophils % 0.8 IMP: Acute on chronic Respiratory Failure due to malfunctioning Trach Balloon Sepsis : likely from a biliary source R/O PNA Lactic Acidosis Above listed history PLAN: Central supply has been called to order a replacement Trach (Currently none available) -> however at this time the patient is saturating 100% and there is no evidence of hypercapnia on ABG ABX per ID Carty-culture IVF Lactic acid level has normalized For now can maintain Trach -> if needed in an emergent situation and a replacement XL trach is not available -> can endotracheally intubate patient ( Not necessary at this time). Dr Pruett Critical care time spent in reviewing chart, evaluating patient and formulating plan 35 min
[2016-12-07] MEDS ORDERED: CEFEPIME HCL 2 GM VIAL (RESTRICTED TO ID) IVPB SCH (18:00)
--- NOTE | 2016-12-07 18:17 | CONSULT ---
Consult Consult Specialty:: Nephrology Reason for Consultation:: JULIET - History of Present Illness Chief Complaint: sent in [place] for [place] distress History of Present Illness: Pt is an 86 year old male with pmhx of resp failure with trache, HTN, HLD, CAD, alzheimers dementia, a-fib, DM and latent TB who was sent in from the [place] for respiratory distress. I was called to evaluate him for JULIET as he was found to have elevated creatinine. He had a recent hospitalization where he was septic and required intubation. He now has a peg, trache, and a drain from the gallbladder. He is unable to give history. 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 Cardio/Vascular: Yes: CAD, HTN, Hyperlipdemia Pulmonary: Yes: O2 Dependent, Previously Intubated, Other (trache) Hepatobiliary: Yes: Cholecystitis - Alcohol/Substance Use Hx Alcohol Use: No - Smoking History Smoking history: Unknown if ever smoked Have you smoked in the past 12 months: No If you are a former smoker, when did you quit?: 1999 - Social History Usual Living Arrangement: Senior Care ADL: Support Services Home Medications - Allergies Allergies/Adverse Reactions: Allergies Allergy/AdvReac Type Severity Reaction Status Date / Time Penicillins Allergy Verified 12/07/16 10:05 - Home Medications Home Medications: Ambulatory Orders Amlodipine Besylate [Norvasc -] 5 mg PO BID 12/07/16 Ascorbic Acid [Vitamin C -] 500 mg PO BID 12/07/16 Aspirin [ASA -] 81 mg PO DAILY 12/07/16 Atorvastatin Ca [Lipitor] 40 mg PO HS 12/07/16 Chlorhexidine Gluconate [Peridex -] 15 ml MM BID 12/07/16 Clindamycin Phosphate 4 mg IJ TID 12/07/16 Enoxaparin [Lovenox -] 40 mg SQ DAILY 12/07/16 Famotidine [Pepcid -] 20 mg PO BID 12/07/16 Furosemide [Lasix -] 40 mg PO DAILY 12/07/16 Insulin (Levemir) [Levemir Vial] 10 units SQ BID 12/07/16 Lactobacillus Acidophilus [Acidophilus Lactobacilli] 2 each PO BID 12/07/16 Lisinopril [Zestril] 40 mg PO DAILY 12/07/16 Metoprolol Tartrate [Lopressor -] 50 mg PO DAILY 12/07/16 Multivitamin [Poly-Vitamin] 1 each PO DAILY 12/07/16 Scopolamine [Transderm-Scop] 1 each TD ASDIR 12/07/16 Spironolactone [Aldactone] 25 mg PO DAILY 12/07/16 Family Disease History - Family Disease History Family History: Unable to Obtain Review of Systems Unable to obtain ROS, reason: pt lethargic Physical Exam Vital Signs: Vital Signs Temperature 100 F H 12/07/16 13:15 Pulse Rate 92 H 12/07/16 16:00 Respiratory Rate 16 12/07/16 17:39 Blood Pressure 81/54 12/07/16 16:00 O2 Sat by Pulse Oximetry (%) 100 12/07/16 14:47 Constitutional: Yes: Calm Eyes: Yes: Conjunctiva Clear Neck: Yes: Other (trache) Cardiovascular: Yes: S1, S2 Respiratory: Yes: Other (pt has tracheostomy) Gastrointestinal: Yes: Other (peg tube). No: Tenderness Renal/: Yes: Palacio Present Musculoskeletal: Yes: Muscle Weakness Edema: No Neurological: Yes: Lethargy Labs: Laboratory Tests 12/07/16 12/07/16 12/07/16 10:30 10:30 10:30 WBC 15.8 H D Hgb 10.8 L D Plt Count 582 H D INR 1.22 H PTT (Actin FS) ABG pH ABG pCO2 at Pt Temp ABG pO2 at Pt Temp ABG HCO3 ABG O2 Sat (Measured) ABG O2 Content Sodium 137 Potassium 4.4 Chloride 96 L Carbon Dioxide 28 Anion Gap 13 BUN 25 H D Creatinine 1.4 H D Creat Clearance w eGFR 48.05 Random Glucose 123 H D Lactic Acid Calcium 9.4 Total Bilirubin 0.4 D Urine Color Urine Appearance Urine pH Ur Specific Norman Urine Protein Urine Glucose (UA) Urine Ketones Urine Blood Urine Nitrite Urine Bilirubin Urine Urobilinogen Ur Leukocyte Esterase Urine RBC Urine WBC 12/07/16 12/07/16 12/07/16 10:30 10:30 11:00 WBC Hgb Plt Count INR PTT (Actin FS) 28.2 ABG pH ABG pCO2 at Pt Temp ABG pO2 at Pt Temp ABG HCO3 ABG O2 Sat (Measured) ABG O2 Content Sodium Potassium Chloride Carbon Dioxide Anion Gap BUN Creatinine Creat Clearance w eGFR Random Glucose Lactic Acid 3.4 H* Calcium Total Bilirubin Urine Color Yellow Urine Appearance Cloudy Urine pH 8.0 D Ur Specific Norman Pending Urine Protein 2+ H Urine Glucose (UA) Negative Urine Ketones 1+ H Urine Blood Negative Urine Nitrite Negative Urine Bilirubin Negative Urine Urobilinogen Negative Ur Leukocyte Esterase 1+ H Urine RBC 74 Urine WBC 69 12/07/16 12/07/16 11:57 13:30 WBC Hgb Plt Count INR PTT (Actin FS) ABG pH 7.41 ABG pCO2 at Pt Temp 36.8 D ABG pO2 at Pt Temp 144.0 H D ABG HCO3 22.9 ABG O2 Sat (Measured) 99.3 H ABG O2 Content 13.3 L Sodium Potassium Chloride Carbon Dioxide Anion Gap BUN Creatinine Creat Clearance w eGFR Random Glucose Lactic Acid 1.4 Calcium Total Bilirubin Urine Color Urine Appearance Urine pH Ur Specific Norman Urine Protein Urine Glucose (UA) Urine Ketones Urine Blood Urine Nitrite Urine Bilirubin Urine Urobilinogen Ur Leukocyte Esterase Urine RBC Urine WBC Imaging - Results Chest X-ray: Report Reviewed Problem List - Problems (1) Sepsis Code(s): A41.9 - SEPSIS, UNSPECIFIED ORGANISM Qualifiers: (2) Acute respiratory failure with hypoxia Code(s): J96.01 - ACUTE RESPIRATORY FAILURE WITH HYPOXIA (3) Alzheimer disease Code(s): G30.9 - ALZHEIMER'S DISEASE, UNSPECIFIED Qualifiers: Alzheimer's disease onset: early-onset Dementia behavioral disturbance : without behavioral disturbance Qualified Code(s): G30.0 - Alzheimer's disease with early onset; F02.81 - Dementia in other diseases classified elsewhere with behavioral disturbance (4) Lactic acid blood increased Code(s): R79.89 - OTHER SPECIFIED ABNORMAL FINDINGS OF BLOOD CHEMISTRY (5) JULIET (acute kidney injury) Code(s): N17.9 - ACUTE KIDNEY FAILURE, UNSPECIFIED Assessment/Plan Current Medications Generic Name Dose Route Start Last Admin Trade Name Freq PRN Reason Stop Dose Admin Acetaminophen 1,000 mg 12/07/16 12:51 12/07/16 13:55 Ofirmev Injection - IVPB 12/08/16 06:52 1,000 mg Q6H PRN Administration FEVER OR PAIN Acetaminophen 650 mg 12/07/16 12:51 Tylenol Suppository - SD Q6H PRN FEVER OR PAIN Dextrose/Sodium Chloride 1,000 mls @ 83 mls/hr 12/07/16 13:00 12/07/16 13:27 D5-Ns - IV 83 mls/hr ASDIR KARLOS Administration Pantoprazole Sodium 100 mls @ 200 mls/hr 12/07/16 13:00 12/07/16 13:27 Protonix 40mg Ivpb (Pre-Docked) IVPB 200 mls/hr DAILY KARLOS Administration Vancomycin HCl 1,250 mg/ 250 mls @ 125 mls/hr 12/08/16 12:00 Dextrose IVPB DAILY@1200 KARLOS Protocol Cefepime HCl 2 gm/ Dextrose 100 mls @ 200 mls/hr 12/07/16 18:00 IVPB Q8H-IV KARLOS Sodium Chloride 1,000 ml 12/07/16 09:57 12/07/16 11:55 Normal Saline - IV 1,000 ml Q20M PRN Administration MAP<65mm Hg OR SBP <90 Impression 1. JULIET 2. sepsis 3. resp failure 4. hx cholecytitis 5. lactic acidosis Plan - agree with fluids - will check urine lytes - follow cultures - check renal ultrasound - pulmonary input appreciated - tache care - ID input appreciated - JULIET likely from sepsis and pre-renal disease - will follow Dr Alvarez
--- NOTE | 2016-12-07 18:19 | CON.CARD ---
Cardiology Consult (text) - Consultation Consultation Note: CC: sepsis 86-year-old man with h/o respiratory failure s/p trach, peg tube, recent cholecystitis with drainage, hypertension, hypercholesterolemia, coronary artery disease status post bare metal stent placement, systolic cardiomyopathy, right atrial lipoma, latent tuberculosis, Alzheimer's dementia and diabetes mellitus who p/w hypoxia. concern for trach leak. Per family patient was improving up until the morning of admission. Had been weaned off ventilator and was more alert and able to follow commands. per family no orthopnea, apparent sob/distress, le edema, bleeding, f/c/s, n/v/d , cough, congestion. limited ros: patient non-verbal. PMH/PSH: per hpi social hx: Former smoker fam hx: no premature cad ros: perhpi Ambulatory Orders Amlodipine Besylate [Norvasc -] 5 mg PO BID 12/07/16 Ascorbic Acid [Vitamin C -] 500 mg PO BID 12/07/16 Aspirin [ASA -] 81 mg PO DAILY 12/07/16 Atorvastatin Ca [Lipitor] 40 mg PO HS 12/07/16 Chlorhexidine Gluconate [Peridex -] 15 ml MM BID 12/07/16 Clindamycin Phosphate 4 mg IJ TID 12/07/16 Enoxaparin [Lovenox -] 40 mg SQ DAILY 12/07/16 Famotidine [Pepcid -] 20 mg PO BID 12/07/16 Furosemide [Lasix -] 40 mg PO DAILY 12/07/16 Insulin (Levemir) [Levemir Vial] 10 units SQ BID 12/07/16 Lactobacillus Acidophilus [Acidophilus Lactobacilli] 2 each PO BID 12/07/16 Lisinopril [Zestril] 40 mg PO DAILY 12/07/16 Metoprolol Tartrate [Lopressor -] 50 mg PO DAILY 12/07/16 Multivitamin [Poly-Vitamin] 1 each PO DAILY 12/07/16 Scopolamine [Transderm-Scop] 1 each TD ASDIR 12/07/16 Spironolactone [Aldactone] 25 mg PO DAILY 12/07/16 Current Medications Acetaminophen (Ofirmev Injection -) 1,000 mg IVPB Q6H PRN PRN Reason: FEVER OR PAIN Stop: 12/08/16 06:52 Last Admin: 12/07/16 13:55 Dose: 1,000 mg Acetaminophen (Tylenol Suppository -) 650 mg [place] Q6H PRN PRN Reason: FEVER OR PAIN Dextrose/Sodium Chloride (D5-Ns -) 1,000 mls @ 83 mls/hr IV ASDIR KARLOS Last Admin: 12/07/16 13:27 Dose: 83 mls/hr Pantoprazole Sodium (Protonix 40mg Ivpb (Pre-Docked)) 100 mls @ 200 mls/hr IVPB DAILY KARLOS Last Admin: 12/07/16 13:27 Dose: 200 mls/hr Vancomycin HCl 1,250 mg/ (Dextrose) 250 mls @ 125 mls/hr IVPB DAILY@1200 KARLOS PRN Reason: Protocol Cefepime HCl 2 gm/ Dextrose 100 mls @ 200 mls/hr IVPB Q8H-IV KARLOS Sodium Chloride (Normal Saline -) 1,000 ml IV Q20M PRN PRN Reason: MAP<65mm Hg OR SBP <90 Last Admin: 12/07/16 11:55 Dose: 1,000 ml Vital Signs - 24 hr 12/07/16 12/07/16 12/07/16 09:46 10:10 10:16 Temperature 100.8 F H Pulse Rate 133 H 133 H Pulse Rate [ Apical] Respiratory 28 H 46 H Rate Blood Pressure 106/56 Blood Pressure [Right Arm] O2 Sat by Pulse 66 L 95 96 Oximetry (%) 12/07/16 12/07/16 12/07/16 10:46 12:15 13:15 Temperature 97.8 F 100 F H Pulse Rate 92 H Pulse Rate [ 116 H 115 H 105 H Apical] Respiratory 26 H Rate Blood Pressure 86/53 Blood Pressure 112/68 112/68 100/57 [Right Arm] O2 Sat by Pulse 100 100 100 Oximetry (%) 12/07/16 12/07/16 12/07/16 13:38 14:15 14:47 Temperature Pulse Rate 107 H Pulse Rate [ 101 H Apical] Respiratory 28 H 26 H Rate Blood Pressure Blood Pressure 105/68 [Right Arm] O2 Sat by Pulse 98 100 100 Oximetry (%) 12/07/16 12/07/16 12/07/16 15:00 16:00 17:39 Temperature Pulse Rate 92 H Pulse Rate [ Apical] Respiratory 36 H 16 16 Rate Blood Pressure 81/54 Blood Pressure [Right Arm] O2 Sat by Pulse Oximetry (%) Intake & Output 12/05/16 12/06/16 12/07/16 12/08/16 07:59 07:59 07:59 07:59 Intake Total 1500 Output Total 200 Balance 1300 Weight 207 lb 0.225 oz nad, calm lethargic, not opening eyes to stimuli jvd flat, neck supple trach on vent coarse bs, bibasilar dullness, nl effort rrr nl s1, s2 no mrg + bs soft nt nd + peg ext without e/c/c diminished dp/pt no carotid bruit CBC, BMP 12/07/16 10:30 12/07/16 10:30 Laboratory Tests 12/07/16 12/07/16 12/07/16 10:30 10:30 10:30 INR 1.22 H ABG pH ABG pCO2 at Pt Temp ABG pO2 at Pt Temp O2 Delivery Device Oxygen Flow Rate Vent Mode Lactic Acid 3.4 H* Total Bilirubin 0.4 D AST 34 D ALT 27 D Alkaline Phosphatase 126 H D Creatine Kinase 116 Troponin I 0.04 D B-Natriuretic Peptide 1283.55 H Albumin 2.3 L D 12/07/16 12/07/16 11:57 13:30 INR ABG pH 7.41 ABG pCO2 at Pt Temp 36.8 D ABG pO2 at Pt Temp 144.0 H D O2 Delivery Device Vent Oxygen Flow Rate 100% Vent Mode A/c Lactic Acid 1.4 Total Bilirubin AST ALT Alkaline Phosphatase Creatine Kinase Troponin I B-Natriuretic Peptide Albumin ekg: sinus tach, lad, rbbb. anterior q waves, lateral STD tele: sr/sinus tach pvc echo 10/2016: sev dilated lv, sev dec lvef, rv mod dilated/mod dec rv fcn, reina, mild mr cxr: LLL opacity/effusion Assessment/Plan 86-year-old man with h/o respiratory failure s/p trach, peg tube, recent cholecystitis with drainage, hypertension, hypercholesterolemia, coronary artery disease status post bare metal stent placement, systolic cardiomyopathy, right atrial lipoma, latent tuberculosis, Alzheimer's dementia and diabetes mellitus who p/w hypoxia. acute hypoxic resp failure, PNA/sepsis -s/p trach, vent support per pulm -abx per ID, crit care - + hypotension, JULIET --> IVF as needed. No concern for volume overload at this time. prior h/o CAD, recent nstemi here in October - ce's negative, lateral STD on ekg. continue michael. At risk for strain, demand ischemia. -resume ASA, statin. hold bb while hypotensive. -plavix previously deferred given advanced age, tenuous clinical status/serious comorbid processes systolic cardiomyopathy - severe dec lvef, no RWMA described on echo from October. Unclear if in setting of sepsis or secondary to underlying CAD. Ischemic work up deferred due to comorbidities, poor functional status/prognosis. - monitor volume status on ivf. HF regimen (kathie, bb, aldactone, lasix as outpatient) currenly on hold for hypotension/juliet. NSVT on prior admission - tele monitoring -replete K/Mg prn (usual targets) hypoalbuminemia/poor nutrition: -per crit care
[2016-12-07] MEDS ORDERED: PT OWN MED DRAWER 7, Y5N ONE (19:00)
[2016-12-07] MEDS: CEFEPIME 2 GM in DEXTROSE 5%-WATER - 100 ML IVPB SCH (20:00)
[2016-12-08] MEDS: CEFEPIME 2 GM in DEXTROSE 5%-WATER - 100 ML IVPB SCH ×3 (01:32→17:38)
[2016-12-08 05:44] LABS: ARTERIAL BLD GAS O2 SATURATION 92.7 % (90-98.9); ARTERIAL BLOOD GAS BASE EXCESS 0.4 meq/l (-2-2); ARTERIAL BLOOD GAS HCO3 24.1 meq/L (22-26); ARTERIAL BLOOD GAS PO2 66.4 mmHg (68-100)
[2016-12-08 05:49] LABS: ALLENS TEST POSITIVE; ART PUNCT SITE RIGHT RADIAL; LPM/O2% 50%; PT. ON O2? YES; TYPE OF O2 T/C
[2016-12-08 05:50] LABS: ARTERIAL BLOOD GAS pH 7.43 (7.35-7.45)
[2016-12-08 06:30] LABS: MCH 25.9 pg (25.7-33.7); MCHC 31.7 g/dl (32.0-35.9); MEAN CELL VOLUME 81.8 fl (80-96); MEAN PLT VOLUME 7.9 fl (7.5-11.1); PLATELET COUNT 466 K/MM3 (134-434); RDW 15.7 % (11.9-15.9); WHITE BLOOD COUNT 12.6 K/mm3 (4.0-10.0)
[2016-12-08 06:54] LABS: ALBUMIN 1.9 g/dl (3.4-5.0); ANION GAP 8 (8-16); CALCIUM 8.4 mg/dL (8.5-10.1); CO2 25 mmol/L (21-32); GLUCOSE,RANDOM 134 mg/dL (74-106)
[2016-12-08 06:57] LABS: ALK PHOS 92 U/L (45-117); BILIRUBIN,TOTAL 0.4 mg/dL (0.2-1.0); COCKROFT - GAULT 64; CREATININE 1.1 mg/dL (0.7-1.3); SGOT/AST 26 U/L (15-37); SGPT/ALT 20 U/L (12-78); TOT PROT 6.5 g/dl (6.4-8.2)
--- NOTE | 2016-12-08 08:19 | PN ---
Progress Note (short form) - Note Progress Note: Seen and examined in ICU Patient awake and calm on TCM replacement trach ordered ABX started for sepsis low grade fever SCr improving Current Medications Acetaminophen (Tylenol Suppository -) 650 mg [place] Q6H PRN PRN Reason: FEVER OR PAIN Dextrose/Sodium Chloride (D5-Ns -) 1,000 mls @ 83 mls/hr IV ASDIR KARLOS Last Admin: 12/07/16 13:27 Dose: 83 mls/hr Pantoprazole Sodium (Protonix 40mg Ivpb (Pre-Docked)) 100 mls @ 200 mls/hr IVPB DAILY KARLOS Last Admin: 12/07/16 13:27 Dose: 200 mls/hr Vancomycin HCl 1,250 mg/ (Dextrose) 250 mls @ 125 mls/hr IVPB DAILY@1200 KARLOS PRN Reason: Protocol Cefepime HCl 2 gm/ Dextrose 100 mls @ 200 mls/hr IVPB Q8H-IV KARLOS Last Admin: 12/08/16 01:32 Dose: 200 mls/hr Sodium Chloride (Normal Saline -) 1,000 ml IV Q20M PRN PRN Reason: MAP<65mm Hg OR SBP <90 Last Admin: 12/07/16 11:55 Dose: 1,000 ml Vital Signs Period Temp Pulse Resp BP Sys/Machado Pulse Ox Last 24 Hr 97 F-100.8 F 85-133 16-46 81-137/53-68 66-100 Intake & Output 12/05/16 12/06/16 12/07/16 12/08/16 23:59 23:59 23:59 23:59 Intake Total 2181 581 Output Total 200 400 Balance 1980 181 Weight 93.9 kg Exam: awake and without distress HEENT: left eye reactive, trach site c/d/i Pulm: few scat rhonchi, improved w/ cough CV: irr, irr Abd: SNTND, +BS, drain site c/d/i Ext: WWP, no edema Neuro: following commands able to move right arm only CBCD WBC 12.6 K/mm3 (4.0-10.0) H 12/08/16 05:20 RBC 3.38 M/mm3 (4.00-5.60) L 12/08/16 05:20 Hgb 8.7 GM/dL (11.7-16.9) L D 12/08/16 05:20 Hct 27.6 % (35.4-49) L D 12/08/16 05:20 MCV 81.8 fl (80-96) 12/08/16 05:20 MCHC 31.7 g/dl (32.0-35.9) L 12/08/16 05:20 RDW 15.7 % (11.9-15.9) 12/08/16 05:20 Plt Count 466 K/MM3 (134-434) H 12/08/16 05:20 MPV 7.9 fl (7.5-11.1) 12/08/16 05:20 CMP Sodium 137 mmol/L (136-145) 12/08/16 05:20 Potassium 3.8 mmol/L (3.5-5.1) 12/08/16 05:20 Chloride 104 mmol/L (98-107) 12/08/16 05:20 Carbon Dioxide 25 mmol/L (21-32) 12/08/16 05:20 Anion Gap 8 (8-16) 12/08/16 05:20 BUN 22 mg/dL (7-18) H 12/08/16 05:20 Creatinine 1.1 mg/dL (0.7-1.3) D 12/08/16 05:20 Creat Clearance w eGFR > 60 (>60) 12/08/16 05:20 Random Glucose 134 mg/dL (74-106) H 12/08/16 05:20 Calcium 8.4 mg/dL (8.5-10.1) L 12/08/16 05:20 Total Bilirubin 0.4 mg/dL (0.2-1.0) 12/08/16 05:20 AST 26 U/L (15-37) D 12/08/16 05:20 ALT 20 U/L (12-78) D 12/08/16 05:20 Alkaline Phosphatase 92 U/L (45-117) D 12/08/16 05:20 Total Protein 6.5 g/dl (6.4-8.2) 12/08/16 05:20 Albumin 1.9 g/dl (3.4-5.0) L 12/08/16 05:20 CARDIAC ENZYMES Creatine Kinase 116 IU/L (39-308) 12/07/16 10:30 Troponin I 0.04 ng/ml (0.00-0.05) D 12/07/16 10:30 Cultures pending IMP: Chronic Respiratory Failure 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
--- NOTE | 2016-12-08 08:22 | HP ---
Admitting History and Physical - Admission History of Present Illness: 86 year old male with pmhx of resp failure with trache, HTN, HLD, CAD, alzheimers dementia, a-fib, DM and latent TB who was sent in from the [place] for respiratory distress - Past Medical History [employer]ACH[employer]TE[employer]OR: Yes: Dementia Cardiovascular: Yes: CAD, HTN, Hyperlipdemia Pulmonary: Yes: O2 Dependent, Previously Intubated, Other (trache) Hepatobiliary: Yes: Cholecystitis - Smoking History Smoking history: Unknown if ever smoked Have you smoked in the past 12 months: No If you are a former smoker, when did you quit?: 1999 - Alcohol/Substance Use Hx Alcohol Use: No - Social History ADL: Support Services Home Medications - Allergies Allergies/Adverse Reactions: Allergies Allergy/AdvReac Type Severity Reaction Status Date / Time Penicillins Allergy Verified 12/07/16 10:05 - Home Medications Home Medications: Ambulatory Orders Amlodipine Besylate [Norvasc -] 5 mg PO BID 12/07/16 Ascorbic Acid [Vitamin C -] 500 mg PO BID 12/07/16 Aspirin [ASA -] 81 mg PO DAILY 12/07/16 Atorvastatin Ca [Lipitor] 40 mg PO HS 12/07/16 Chlorhexidine Gluconate [Peridex -] 15 ml MM BID 12/07/16 Clindamycin Phosphate 4 mg IJ TID 12/07/16 Enoxaparin [Lovenox -] 40 mg SQ DAILY 12/07/16 Famotidine [Pepcid -] 20 mg PO BID 12/07/16 Furosemide [Lasix -] 40 mg PO DAILY 12/07/16 Insulin (Levemir) [Levemir Vial] 10 units SQ BID 12/07/16 Lactobacillus Acidophilus [Acidophilus Lactobacilli] 2 each PO BID 12/07/16 Lisinopril [Zestril] 40 mg PO DAILY 12/07/16 Metoprolol Tartrate [Lopressor -] 50 mg PO DAILY 12/07/16 Multivitamin [Poly-Vitamin] 1 each PO DAILY 12/07/16 Scopolamine [Transderm-Scop] 1 each TD ASDIR 12/07/16 Spironolactone [Aldactone] 25 mg PO DAILY 12/07/16 Review of Systems Unable to obtain ROS, reason: DEMENTIA Physical Examination Vital Signs: Vital Signs Temperature 97 F L 12/08/16 05:45 Pulse Rate 94 H 12/08/16 05:45 Respiratory Rate 18 12/08/16 05:45 Blood Pressure 128/66 12/08/16 05:45 O2 Sat by Pulse Oximetry (%) 97 12/08/16 02:15 Cardiovascular: Yes: Murmur, S1, S2 Respiratory: Yes: Diminished, Other (TRACH). No: Wheezes Gastrointestinal: Yes: Normal Bowel Sounds, Soft, Other (T-TUBE IN PLACE) Renal/: Yes: Palacio Present Edema: No Neurological: Yes: Confusion Labs: CBC, BMP 12/08/16 05:20 12/08/16 05:20 Imaging - Results X-ray: Report Reviewed (LLL CONSOLIDATION) Problem List - Problems (1) JULIET (acute kidney injury) Assessment/Plan: Laboratory Tests 12/07/16 12/08/16 10:30 05:20 Creatinine 1.4 H D 1.1 D MONITOR Code(s): N17.9 - ACUTE KIDNEY FAILURE, UNSPECIFIED (2) Acute respiratory failure with hypoxia Assessment/Plan: MONITOR SAT NEBS ABX Code(s): J96.01 - ACUTE RESPIRATORY FAILURE WITH HYPOXIA (3) Cholecystitis Assessment/Plan: T-TUBE IN PLACE Code(s): K81.9 - CHOLECYSTITIS, UNSPECIFIED (4) Sepsis Assessment/Plan: ABX Vital Signs Period Temp Pulse Resp BP Sys/Machado Pulse Ox Last 24 Hr 97 F-100.8 F 85-133 16-46 81-137/53-68 66-100 Laboratory Tests 12/07/16 12/07/16 10:30 11:57 Lactic Acid 3.4 H* 1.4 Code(s): A41.9 - SEPSIS, UNSPECIFIED ORGANISM Qualifiers: (5) Pneumonia Assessment/Plan: ABX F/U CXR Code(s): J18.9 - PNEUMONIA, UNSPECIFIED ORGANISM
--- NOTE | 2016-12-08 08:49 | PN ---
Progress Note, Physician History of Present Illness: Renal f/u Pt in no distress He denies any pain Azotemia better on the IVF He is NPO Renal US - No [place] and bilat cysts - Current Medication List Current Medications: Active Medications Acetaminophen (Tylenol Suppository -) 650 mg [place] Q6H PRN PRN Reason: FEVER OR PAIN Albuterol/Ipratropium (Duoneb -) 1 amp NEB QIDR [facility] Heparin Sodium (Porcine) (Heparin -) 5,000 unit SQ TID [facility] Dextrose/Sodium Chloride (D5-Ns -) 1,000 mls @ 83 mls/hr IV ASDIR [facility] Last Admin: 12/07/16 13:27 Dose: 83 mls/hr Pantoprazole Sodium (Protonix 40mg Ivpb (Pre-Docked)) 100 mls @ 200 mls/hr IVPB DAILY [facility] Last Admin: 12/07/16 13:27 Dose: 200 mls/hr Vancomycin HCl 1,250 mg/ (Dextrose) 250 mls @ 125 mls/hr IVPB DAILY@1200 [facility]OS PRN Reason: Protocol Cefepime HCl 2 gm/ Dextrose 100 mls @ 200 mls/hr IVPB Q8H-IV [facility] Last Admin: 12/08/16 01:32 Dose: 200 mls/hr Sodium Chloride (Normal Saline -) 1,000 ml IV Q20M PRN PRN Reason: MAP<65mm Hg OR SBP <90 Last Admin: 12/07/16 11:55 Dose: 1,000 ml - Objective Vital Signs: Vital Signs Temperature 97 F L 12/08/16 05:45 Pulse Rate 94 H 12/08/16 08:00 Respiratory Rate 26 H 12/08/16 08:00 Blood Pressure 133/55 12/08/16 08:00 O2 Sat by Pulse Oximetry (%) 97 12/08/16 02:15 Constitutional: Yes: No Distress Cardiovascular: Yes: S1, S2 Respiratory: Yes: CTA Bilaterally Gastrointestinal: Yes: Soft, Distention, Other (Cholcystostomy tube in place). No: Tenderness, Rebound Genitourinary: Yes: Other (Palacio in place). No: Bladder Distention Edema: LUE: Trace, RUE: Trace Neurological: Yes: Alert, Other (Cooperative - Right ptosis and left hand weakness) Labs: CBC, BMP 12/08/16 05:20 12/08/16 05:20 INR, PTT INR 1.22 (0.82-1.09) H 12/07/16 10:30 Assessment/Plan Impression 1. JULIET improved 2. Sepsis 3. Normcytic anemia 4. Hx cholecystitis 5. 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 Resp insuff with Trach and LLL infiltrate and effusion Plan - Continue with present IVF - Empiric abx while awaiting culture results available - Consider starting PEG feeds _ Monitor the Hgb Discussed with the [facility] JOB ORDER CLERK Dr Saleem
[2016-12-08] MEDS: PANTOPRAZOLE SODIUM 100 ML IVPB SCH (09:52)
[2016-12-08] MEDS ORDERED: ALBUTEROL SO4 2.5/IPRATROPIUM 0.5 INH SOL 3 ML VIAL.NEB. NEB ONE (09:58)
[2016-12-08] MEDS ORDERED: ASPIRIN COATED 81 MG TABLET.EC PO SCH (10:00)
[2016-12-08 10:28] LABS: TROPONIN I 0.06 ng/ml (0.00-0.05)
--- NOTE | 2016-12-08 10:35 | PN ---
Progress Note, Physician History of Present Illness: Awake, follows commands Not verbally responsive Temps down, afebrile WBC improved Sputum c/s pending - Current Medication List Current Medications: Active Medications Acetaminophen (Tylenol Suppository -) 650 mg [place] Q6H PRN PRN Reason: FEVER OR PAIN Albuterol/Ipratropium (Duoneb -) 1 amp NEB QIDR [facility] Aspirin (Ecotrin -) 81 mg PO DAILY [facility] Atorvastatin Calcium (Lipitor -) 40 mg PO HS [facility] Heparin Sodium (Porcine) (Heparin -) 5,000 unit SQ TID [facility] Dextrose/Sodium Chloride (D5-Ns -) 1,000 mls @ 83 mls/hr IV ASDIR [facility] Last Admin: 12/07/16 13:27 Dose: 83 mls/hr Pantoprazole Sodium (Protonix 40mg Ivpb (Pre-Docked)) 100 mls @ 200 mls/hr IVPB DAILY [facility] Last Admin: 12/08/16 09:52 Dose: 200 mls/hr Vancomycin HCl 1,250 mg/ (Dextrose) 250 mls @ 125 mls/hr IVPB DAILY@1200 [facility] PRN Reason: Protocol Cefepime HCl 2 gm/ Dextrose 100 mls @ 200 mls/hr IVPB Q8H-IV [facility] Last Admin: 12/08/16 09:14 Dose: 200 mls/hr Sodium Chloride (Normal Saline -) 1,000 ml IV Q20M PRN PRN Reason: MAP<65mm Hg OR SBP <90 Last Admin: 12/07/16 11:55 Dose: 1,000 ml - Objective Vital Signs: Vital Signs Temperature 97 F L 12/08/16 05:45 Pulse Rate 95 H 12/08/16 10:00 Respiratory Rate 28 H 12/08/16 10:00 Blood Pressure 131/54 12/08/16 10:00 O2 Sat by Pulse Oximetry (%) 96 12/08/16 08:41 Constitutional: Yes: No Distress, Cachectic Cardiovascular: Yes: Regular Rate and Rhythm, S1, S2 Respiratory: Yes: Rhonchi Gastrointestinal: Yes: Normal Bowel Sounds, Soft. No: Tenderness Labs: CBC, BMP 12/08/16 05:20 12/08/16 05:20 INR, PTT INR 1.22 (0.82-1.09) H 12/07/16 10:30 Assessment/Plan Resp failure Pneumonia Fever/ leukocytosis-improved JULIET PCN allergy OBS Await c/s Continue cefepime/ vancomycin
--- NOTE | 2016-12-08 11:01 | CONS ---
DATE OF CONSULTATION: HISTORY: This is an 86-year-old male who was sent from the halfway for treatment of fever and sepsis. The patient has chronic ventilatory dependency. Reviewing the old chart indicates that he is status post placement of a biliary drain in October for which he received 10 days of Imipenem. A bile culture obtained November 01 was no growth. He is admitted now with fever and tachypnea for which he was sent to the emergency room for further evaluation where he was noted to be febrile. Again, note that he had a lengthy hospitalization in the very beginning of October where he was initially seen by Dr. Arenas for a temperature of 103.5. He had apparently been diagnosed with influenza A. The patient can offer no history. PAST MEDICAL HISTORY: Reviewing the emergency room record and prior notes indicates a past medical history of halfway residence, hypertension, hyperlipidemia, coronary artery disease, status post bare-metal stent placement, atrial fibrillation, right atrial lipoma, latent tuberculosis, Alzheimer dementia, diabetes mellitus. He was noted to be hypoxemic with 79% oxygen in the emergency room. MEDICATIONS: Metoprolol, amlodipine, aspirin, metformin. ALLERGIES: PENICILLIN, unknown. FAMILY HISTORY: Unobtainable. SOCIAL HISTORY: senior living resident. No history of smoking or drug use. REVIEW OF SYSTEMS: Respiratory: Tracheostomy. Cardiac: No history of chest pain or palpitations. Gastrointestinal: PEG feeding tube. No abdominal pain, blood per rectum, hematemesis, diarrhea. Genitourinary: Incontinent of urine. PHYSICAL EXAMINATION: Vital Signs: Temperature 101.5, pulse 132, respirations 16, blood pressure 138/68, O2 oximetry 93% Neck: Tracheostomy. Heart: S1, S2. Abdomen: Soft and nontender. PEG feeding. Extremities: Without clubbing, cyanosis, or edema. LABORATORY DATA: The white count is 15.8, hemoglobin 10.8, platelets 582, INR 1.22, BUN 25, creatinine 1.4, lactic acid 3.4, alkaline phosphatase 126, AST 34. Urinalysis 1+ leukocyte esterase, 74 RBCs, 69 WBCs. Chest x-ray reviewed reported as showing left lower lobe consolidation. Postintubation no evidence of pneumothorax, bilateral infiltrates. ASSESSMENT: An 86-year-old male with a previous history of Luz's in October admitted now with respiratory failure and sepsis with pneumonia. PLAN: Empiric therapy with vancomycin and cefepime. Blood, urine, sputum cultures. Pulmonary consultation. SANDY FERRERA M.D. [id number]
[2016-12-08] MEDS: VANCOMYCIN 1,250 MG in DEXTROSE 5%-WATER - 250 ML IVPB SCH (11:08)
[2016-12-08] MEDS: ALBUTEROL SO4 2.5/IPRATROPIUM 0.5 INH SOL 3 ML VIAL.NEB. NEB SCH ×2 (11:24→17:50)
[2016-12-08] MEDS: ASPIRIN 81 MG CHEWABLE TABLETS PO SCH (12:06)
--- NOTE | 2016-12-08 12:11 | PN ---
Progress Note, Physician History of Present Illness: No events On Trache collar - Current Medication List Current Medications: Active Medications Acetaminophen (Tylenol Suppository -) 650 mg [place] Q6H PRN PRN Reason: FEVER OR PAIN Albuterol/Ipratropium (Duoneb -) 1 amp NEB QIDR [facility] Last Admin: 12/08/16 11:24 Dose: 1 amp Aspirin (Asa -) 81 mg PO DAILY [facility] Last Admin: 12/08/16 12:06 Dose: 81 mg Atorvastatin Calcium (Lipitor -) 40 mg PO HS [facility] Heparin Sodium (Porcine) (Heparin -) 5,000 unit SQ TID [facility] Dextrose/Sodium Chloride (D5-Ns -) 1,000 mls @ 83 mls/hr IV ASDIR [facility] Last Admin: 12/07/16 13:27 Dose: 83 mls/hr Pantoprazole Sodium (Protonix 40mg Ivpb (Pre-Docked)) 100 mls @ 200 mls/hr IVPB DAILY [facility] Last Admin: 12/08/16 09:52 Dose: 200 mls/hr Vancomycin HCl 1,250 mg/ (Dextrose) 250 mls @ 125 mls/hr IVPB DAILY@1200 [facility] PRN Reason: Protocol Last Admin: 12/08/16 11:08 Dose: 125 mls/hr Cefepime HCl 2 gm/ Dextrose 100 mls @ 200 mls/hr IVPB Q8H-IV [facility] Last Admin: 12/08/16 09:14 Dose: 200 mls/hr Sodium Chloride (Normal Saline -) 1,000 ml IV Q20M PRN PRN Reason: MAP<65mm Hg OR SBP <90 Last Admin: 12/07/16 11:55 Dose: 1,000 ml - Objective Vital Signs: Vital Signs Temperature 98.3 F 12/08/16 10:00 Pulse Rate 100 H 12/08/16 12:00 Respiratory Rate 25 H 12/08/16 12:00 Blood Pressure 139/65 12/08/16 12:00 O2 Sat by Pulse Oximetry (%) 98 12/08/16 11:23 Constitutional: Yes: Calm, Other (Trache collar) Eyes: Yes: WNL HENT: Yes: WNL Cardiovascular: Yes: Regular Rate and Rhythm Edema: No Labs: CBC, BMP 12/08/16 05:20 12/08/16 05:20 INR, PTT INR 1.22 (0.82-1.09) H 12/07/16 10:30 Assessment/Plan 86-year-old man with h/o respiratory failure s/p trach, peg tube, recent cholecystitis with drainage, hypertension, hypercholesterolemia, coronary artery disease status post bare metal stent placement, systolic cardiomyopathy, right atrial lipoma, latent tuberculosis, Alzheimer's dementia and diabetes mellitus who p/w hypoxia. acute hypoxic resp failure, PNA/sepsis -s/p trach, vent support per pulm -abx per ID, crit care - + hypotension, JULIET --> IVF as needed. No concern for volume overload at this time. prior h/o CAD, recent nstemi here in October - ce's negative, lateral STD on ekg. continue michael. At risk for strain, demand ischemia. -resume ASA, statin. hold bb while hypotensive. -plavix previously deferred given advanced age, tenuous clinical status/serious comorbid processes systolic cardiomyopathy - severe dec lvef, no RWMA described on echo from October. Unclear if in setting of sepsis or secondary to underlying CAD. Ischemic work up deferred due to comorbidities, poor functional status/prognosis. - monitor volume status on ivf. HF regimen (kathie, bb, aldactone, lasix as outpatient) currenly on hold for hypotension/juliet. NSVT on prior admission - tele monitoring -replete K/Mg prn (usual targets) hypoalbuminemia/poor nutrition: -per crit care
[2016-12-08] MEDS: HEPARIN NA (PORCINE) 5,000 UNITS/ML 1ML VIAL SQ SCH ×2 (13:17→22:37)
[2016-12-08] MEDS: DEXTROSE 5%-NORMAL SALINE 1,000 ML IV SCH (13:34)
[2016-12-08] MEDS ORDERED: PT OWN MED DRAWER 7, Y5N ONE (17:44)
[2016-12-08] MEDS: METOPROLOL TARTRATE 50 MG TABLET (FP) PO SCH (18:13)
--- NOTE | 2016-12-08 19:19 | EKG ---
Test Reason : Blood Pressure : / mmHG Vent. Rate : 130 BPM Atrial Rate : 130 BPM P-R Int : 156 ms QRS Dur : 114 ms QT Int : 324 ms P-R-T Axes : 080 -77 085 degrees QTc Int : 476 ms SINUS TACHYCARDIA LEFT AXIS DEVIATION INCOMPLETE RIGHT BUNDLE BRANCH BLOCK ABNORMAL ECG WHEN COMPARED WITH ECG OF 15-OCT-2016 11:53, PREMATURE VENTRICULAR COMPLEXES ARE NO LONGER PRESENT INCOMPLETE RIGHT BUNDLE BRANCH BLOCK IS NOW PRESENT CRITERIA FOR ANTEROSEPTAL INFARCT ARE NO LONGER PRESENT Confirmed by REBEKAH GONSALEZ MD ([id number]) on 12/08/2016 7:19:04 PM Referred By: Confirmed By:REBEKAH GONSALEZ MD
[2016-12-08] MEDS: ATORVASTATIN CA 40 MG TABLET (FP) PO SCH (22:36)
[2016-12-09] MEDS: ALBUTEROL SO4 2.5/IPRATROPIUM 0.5 INH SOL 3 ML VIAL.NEB. NEB SCH ×5 (00:14→23:35)
[2016-12-09] MEDS: CEFEPIME 2 GM in DEXTROSE 5%-WATER - 100 ML IVPB SCH ×3 (02:24→17:28)
[2016-12-09 06:01] LABS: MCH 25.9 pg (25.7-33.7); MCHC 31.8 g/dl (32.0-35.9); MEAN CELL VOLUME 81.5 fl (80-96); MEAN PLT VOLUME 7.8 fl (7.5-11.1); PLATELET COUNT 443 K/MM3 (134-434); RDW 15.5 % (11.9-15.9); WHITE BLOOD COUNT 10.4 K/mm3 (4.0-10.0)
[2016-12-09] MEDS: HEPARIN NA (PORCINE) 5,000 UNITS/ML 1ML VIAL SQ SCH ×3 (06:32→21:50)
[2016-12-09] MEDS: INSULIN SLIDING SCALE (NOVOLOG) 1 VIAL SQ SCH ×4 (06:32→21:55)
[2016-12-09 06:36] LABS: ALBUMIN 1.9 g/dl (3.4-5.0); BILIRUBIN,DIRECT 0.2 mg/dL (0.0-0.2); CALCIUM 8.6 mg/dL (8.5-10.1); MAGNESIUM 1.4 mg/dL (1.8-2.4); PHOSPHOROUS 2.7 mg/dL (2.5-4.9)
[2016-12-09 06:41] LABS: BILIRUBIN,TOTAL 0.3 mg/dL (0.2-1.0); TOT PROT 6.7 g/dl (6.4-8.2)
[2016-12-09] MEDS ORDERED: PT OWN MED DRAWER 7, Y5N ONE (08:49)
[2016-12-09] MEDS: METOPROLOL TARTRATE 50 MG TABLET (FP) PO SCH (09:25)
[2016-12-09] MEDS: ASPIRIN 81 MG CHEWABLE TABLETS PO SCH (09:25)
[2016-12-09] MEDS: PANTOPRAZOLE SODIUM 100 ML IVPB SCH (09:26)
[2016-12-09] MEDS ORDERED: LISINOPRIL 5 MG TABLET (FP) PO ONE (09:52)
[2016-12-09] MEDS ORDERED: MAGNESIUM SULF 50% (8.12 MEQ/2 ML-1 GM VIAL) IVPB ONE (09:53)
--- NOTE | 2016-12-09 09:53 | PN ---
Progress Note, Physician History of Present Illness: Restarted on Metoprolol yesterday Better HR control No other CV events - Current Medication List Current Medications: Active Medications Acetaminophen (Tylenol Suppository -) 650 mg [place] Q6H PRN PRN Reason: FEVER OR PAIN Albuterol/Ipratropium (Duoneb -) 1 amp NEB QIDR [facility] Last Admin: 12/09/16 06:01 Dose: 1 amp Aspirin (Asa -) 81 mg PO DAILY [facility] Last Admin: 12/09/16 09:25 Dose: 81 mg Atorvastatin Calcium (Lipitor -) 40 mg PO HS [facility] Last Admin: 12/08/16 22:36 Dose: 40 mg Heparin Sodium (Porcine) (Heparin -) 5,000 unit SQ TID [facility] Last Admin: 12/09/16 06:32 Dose: 5,000 unit Pantoprazole Sodium (Protonix 40mg Ivpb (Pre-Docked)) 100 mls @ 200 mls/hr IVPB DAILY [facility] Last Admin: 12/09/16 09:26 Dose: 200 mls/hr Vancomycin HCl 1,250 mg/ (Dextrose) 250 mls @ 125 mls/hr IVPB DAILY@1200 [facility] PRN Reason: Protocol Last Admin: 12/08/16 11:08 Dose: 125 mls/hr Cefepime HCl 2 gm/ Dextrose 100 mls @ 200 mls/hr IVPB Q8H-IV [facility] Last Admin: 12/09/16 09:23 Dose: 200 mls/hr Insulin Aspart (Novolog Vial Sliding Scale -) 1 vial SQ ACHS [facility] PRN Reason: Protocol Last Admin: 12/09/16 06:32 Dose: 1 unit Metoprolol Tartrate (Lopressor -) 50 mg PO DAILY [facility] Last Admin: 12/09/16 09:25 Dose: 50 mg Sodium Chloride (Normal Saline -) 1,000 ml IV Q20M PRN PRN Reason: MAP<65mm Hg OR SBP <90 Last Admin: 12/07/16 11:55 Dose: 1,000 ml - Objective Vital Signs: Vital Signs Temperature 98 F 12/09/16 06:00 Pulse Rate 98 H 12/09/16 08:00 Respiratory Rate 19 12/09/16 08:00 Blood Pressure 135/57 12/09/16 08:00 O2 Sat by Pulse Oximetry (%) 98 06/03/17 11:23 Constitutional: Yes: No Distress, Calm, Other (Trach collar) Eyes: Yes: WNL HENT: Yes: WNL Neck: Yes: WNL Cardiovascular: Yes: Regular Rate and Rhythm, Tachycardia Respiratory: Yes: WNL Gastrointestinal: Yes: Normal Bowel Sounds Edema: No Labs: CBC, BMP 12/09/16 05:15 12/09/16 05:15 INR, PTT INR 1.22 (0.82-1.09) H 12/07/16 10:30 Assessment/Plan 86-year-old man with h/o respiratory failure s/p trach, peg tube, recent cholecystitis with drainage, hypertension, hypercholesterolemia, coronary artery disease status post bare metal stent placement, systolic cardiomyopathy, right atrial lipoma, latent tuberculosis, Alzheimer's dementia and diabetes mellitus who p/w hypoxia. acute hypoxic resp failure, PNA/sepsis -s/p trach, vent support per pulm -abx per ID, crit care - + hypotension, JULIET --> IVF as needed. No concern for volume overload at this time. prior h/o CAD, recent nstemi here in October - ce's negative, lateral STD on ekg. continue michael. At risk for strain, demand ischemia. -resume ASA, statin. hold bb while hypotensive. -plavix previously deferred given advanced age, tenuous clinical status/serious comorbid processes systolic cardiomyopathy - severe dec lvef, no RWMA described on echo from October. Unclear if in setting of sepsis or secondary to underlying CAD. Ischemic work up deferred due to comorbidities, poor functional status/prognosis. - monitor volume status on ivf - stable. HF regimen (kathie, aldactone, lasix as outpatient) currenly on hold with hypotension/juliet - -6/4 restarted on beta regina -Can add back Lisinopril 2.5mg daily today as renal function improved
--- NOTE | 2016-12-09 09:54 | PN ---
Progress Note, Physician History of Present Illness: Renal f/u Pt in no distress He denies any pain Tolerating feeds and is off the IVF Renal US - No [place] and bilat cysts - Current Medication List Current Medications: Active Medications Acetaminophen (Tylenol Suppository -) 650 mg [place] Q6H PRN PRN Reason: FEVER OR PAIN Albuterol/Ipratropium (Duoneb -) 1 amp NEB QIDR [facility] Last Admin: 12/09/16 06:01 Dose: 1 amp Aspirin (Asa -) 81 mg PO DAILY [facility] Last Admin: 12/09/16 09:25 Dose: 81 mg Atorvastatin Calcium (Lipitor -) 40 mg PO HS [facility] Last Admin: 12/08/16 22:36 Dose: 40 mg Heparin Sodium (Porcine) (Heparin -) 5,000 unit SQ TID [facility] Last Admin: 12/09/16 06:32 Dose: 5,000 unit Pantoprazole Sodium (Protonix 40mg Ivpb (Pre-Docked)) 100 mls @ 200 mls/hr IVPB DAILY [facility] Last Admin: 12/09/16 09:26 Dose: 200 mls/hr Vancomycin HCl 1,250 mg/ (Dextrose) 250 mls @ 125 mls/hr IVPB DAILY@1200 [facility] PRN Reason: Protocol Last Admin: 12/08/16 11:08 Dose: 125 mls/hr Cefepime HCl 2 gm/ Dextrose 100 mls @ 200 mls/hr IVPB Q8H-IV [facility] Last Admin: 12/09/16 09:23 Dose: 200 mls/hr Insulin Aspart (Novolog Vial Sliding Scale -) 1 vial SQ ACHS [facility] PRN Reason: Protocol Last Admin: 12/09/16 06:32 Dose: 1 unit Metoprolol Tartrate (Lopressor -) 50 mg PO DAILY [facility] Last Admin: 12/09/16 09:25 Dose: 50 mg Sodium Chloride (Normal Saline -) 1,000 ml IV Q20M PRN PRN Reason: MAP<65mm Hg OR SBP <90 Last Admin: 12/07/16 11:55 Dose: 1,000 ml - Objective Vital Signs: Vital Signs Temperature 98 F 12/09/16 06:00 Pulse Rate 98 H 12/09/16 08:00 Respiratory Rate 19 12/09/16 08:00 Blood Pressure 135/57 12/09/16 08:00 O2 Sat by Pulse Oximetry (%) 98 06/03/17 11:23 Constitutional: Yes: No Distress Cardiovascular: Yes: S1, S2 Respiratory: Yes: CTA Bilaterally Gastrointestinal: Yes: Soft, Other (Has PEG and Cholecystostomy tube). No: Tenderness, Rebound Edema: No Labs: CBC, BMP 12/09/16 05:15 12/09/16 05:15 INR, PTT INR 1.22 (0.82-1.09) H 12/07/16 10:30 Assessment/Plan Impression 1. S/P JULIET 2. Sepsis 3. Normcytic anemia 4. Hx cholecystitis 5. 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 Resp insuff with Trach and LLL infiltrate and effusion Plan - Since azotemia has normalized will only follow as needed Dr Saleem
--- NOTE | 2016-12-09 09:55 | PN ---
Progress Note, Physician History of Present Illness: on trach collar - Current Medication List Current Medications: Active Medications Acetaminophen (Tylenol Suppository -) 650 mg [place] Q6H PRN PRN Reason: FEVER OR PAIN Albuterol/Ipratropium (Duoneb -) 1 amp NEB QIDR [facility] Last Admin: 12/09/16 06:01 Dose: 1 amp Aspirin (Asa -) 81 mg PO DAILY [facility] Last Admin: 12/09/16 09:25 Dose: 81 mg Atorvastatin Calcium (Lipitor -) 40 mg PO HS [facility] Last Admin: 12/08/16 22:36 Dose: 40 mg Heparin Sodium (Porcine) (Heparin -) 5,000 unit SQ TID [facility] Last Admin: 12/09/16 06:32 Dose: 5,000 unit Pantoprazole Sodium (Protonix 40mg Ivpb (Pre-Docked)) 100 mls @ 200 mls/hr IVPB DAILY [facility] Last Admin: 12/09/16 09:26 Dose: 200 mls/hr Vancomycin HCl 1,250 mg/ (Dextrose) 250 mls @ 125 mls/hr IVPB DAILY@1200 KARLOS PRN Reason: Protocol Last Admin: 12/08/16 11:08 Dose: 125 mls/hr Cefepime HCl 2 gm/ Dextrose 100 mls @ 200 mls/hr IVPB Q8H-IV [facility] Last Admin: 12/09/16 09:23 Dose: 200 mls/hr Insulin Aspart (Novolog Vial Sliding Scale -) 1 vial SQ ACHS [facility] PRN Reason: Protocol Last Admin: 12/09/16 06:32 Dose: 1 unit Lisinopril (Prinivil) 2.5 mg PO ONCE ONE Stop: 12/09/16 09:53 Metoprolol Tartrate (Lopressor -) 50 mg PO DAILY [facility] Last Admin: 12/09/16 09:25 Dose: 50 mg Sodium Chloride (Normal Saline -) 1,000 ml IV Q20M PRN PRN Reason: MAP<65mm Hg OR SBP <90 Last Admin: 12/07/16 11:55 Dose: 1,000 ml - Objective Vital Signs: Vital Signs Temperature 98 F 12/09/16 06:00 Pulse Rate 98 H 12/09/16 08:00 Respiratory Rate 19 12/09/16 08:00 Blood Pressure 135/57 12/09/16 08:00 O2 Sat by Pulse Oximetry (%) 98 12/08/16 11:23 Cardiovascular: Yes: S1, S2 Respiratory: Yes: Diminished, On Venti-Mask (via trach) Gastrointestinal: Yes: Normal Bowel Sounds, Soft Edema: No Labs: CBC, BMP 12/09/16 05:15 12/09/16 05:15 INR, PTT INR 1.22 (0.82-1.09) H 12/07/16 10:30 Problem List - Problems (1) JULIET (acute kidney injury) Assessment/Plan: Laboratory Tests 12/07/16 12/08/16 10:30 05:20 Creatinine 1.4 H D 1.1 D MONITOR Code(s): N17.9 - ACUTE KIDNEY FAILURE, UNSPECIFIED (2) Acute respiratory failure with hypoxia Assessment/Plan: DUE TO PNEUMONIA MONITOR SAT NEBS ABX Code(s): J96.01 - ACUTE RESPIRATORY FAILURE WITH HYPOXIA (3) Cholecystitis Assessment/Plan: T-TUBE IN PLACE Code(s): K81.9 - CHOLECYSTITIS, UNSPECIFIED (4) Sepsis Assessment/Plan: ABX Vital Signs Period Temp Pulse Resp BP Sys/Machado Pulse Ox Last 24 Hr 97 F-100.8 F 85-133 16-46 81-137/53-68 66-100 Laboratory Tests 12/07/16 12/07/16 10:30 11:57 Lactic Acid 3.4 H* 1.4 Code(s): A41.9 - SEPSIS, UNSPECIFIED ORGANISM Qualifiers: (5) Pneumonia Assessment/Plan: ABX F/U CXR Code(s): J18.9 - PNEUMONIA, UNSPECIFIED ORGANISM (6) Electrolyte abnormality Assessment/Plan: MAG 2 GM Code(s): E87.8 - OTH DISORDERS OF ELECTROLYTE AND FLUID BALANCE, NEC
[2016-12-09] MEDS: VANCOMYCIN 1,250 MG in DEXTROSE 5%-WATER - 250 ML IVPB SCH (11:25)
--- NOTE | 2016-12-09 11:54 | PN ---
Progress Note, Physician History of Present Illness: Lethargic; responds to verbal stimulus Afebrile WBC improved + resp secretions Breathing non-labored - Current Medication List Current Medications: Active Medications Acetaminophen (Tylenol Suppository -) 650 mg UT Q6H PRN PRN Reason: FEVER OR PAIN Albuterol/Ipratropium (Duoneb -) 1 amp NEB QIDR [facility] Last Admin: 12/09/16 11:36 Dose: 1 amp Aspirin (Asa -) 81 mg PO DAILY [facility] Last Admin: 12/09/16 09:25 Dose: 81 mg Atorvastatin Calcium (Lipitor -) 40 mg PO HS [facility] Last Admin: 12/08/16 22:36 Dose: 40 mg Heparin Sodium (Porcine) (Heparin -) 5,000 unit SQ TID [facility] Last Admin: 12/09/16 06:32 Dose: 5,000 unit Pantoprazole Sodium (Protonix 40mg Ivpb (Pre-Docked)) 100 mls @ 200 mls/hr IVPB DAILY [facility] Last Admin: 12/09/16 09:26 Dose: 200 mls/hr Vancomycin HCl 1,250 mg/ (Dextrose) 250 mls @ 125 mls/hr IVPB DAILY@1200 [facility] PRN Reason: Protocol Last Admin: 12/09/16 11:25 Dose: 125 mls/hr Cefepime HCl 2 gm/ Dextrose 100 mls @ 200 mls/hr IVPB Q8H-IV [facility] Last Admin: 12/09/16 09:23 Dose: 200 mls/hr Insulin Aspart (Novolog Vial Sliding Scale -) 1 vial SQ ACHS [facility] PRN Reason: Protocol Last Admin: 12/09/16 11:24 Dose: 1 unit Metoprolol Tartrate (Lopressor -) 50 mg PO DAILY [facility] Last Admin: 12/09/16 09:25 Dose: 50 mg Sodium Chloride (Normal Saline -) 1,000 ml IV Q20M PRN PRN Reason: MAP<65mm Hg OR SBP <90 Last Admin: 12/07/16 11:55 Dose: 1,000 ml - Objective Vital Signs: Vital Signs Temperature 98.2 F 12/09/16 10:00 Pulse Rate 86 12/09/16 10:36 Respiratory Rate 18 12/09/16 10:00 Blood Pressure 134/67 12/09/16 10:00 O2 Sat by Pulse Oximetry (%) 98 12/09/16 10:36 Constitutional: Yes: No Distress, Cachectic Eyes: Yes: Conjunctiva Clear Cardiovascular: Yes: Regular Rate and Rhythm, S1, S2 Respiratory: Yes: Diminished Gastrointestinal: Yes: Normal Bowel Sounds, Soft, Other (+PEG). No: Tenderness Labs: CBC, BMP 12/09/16 05:15 12/09/16 05:15 INR, PTT INR 1.22 (0.82-1.09) H 12/07/16 10:30 Assessment/Plan Resp failure Pneumonia Fever/ leukocytosis-improved JULIET PCN allergy OBS Await c/s Continue cefepime/ vancomycin
--- NOTE | 2016-12-09 13:45 | CONSULT ---
Consult - text type - Consultation Consultation Note: PULM / CCM -Pt Seen & examined in the ICU -Patient awake and calm on TCM -replacement trach remains on order -ABX started for sepsis -Non Lactose Fermenting GNB now growing out of 6/3 Sputum Active Medications Acetaminophen (Tylenol Suppository -) 650 mg MS Q6H PRN PRN Reason: FEVER OR PAIN Albuterol/Ipratropium (Duoneb -) 1 amp NEB QIDR [facility] Last Admin: 12/09/16 11:36 Dose: 1 amp Aspirin (Asa -) 81 mg PO DAILY [facility] Last Admin: 12/09/16 09:25 Dose: 81 mg Atorvastatin Calcium (Lipitor -) 40 mg PO HS [facility] Last Admin: 12/08/16 22:36 Dose: 40 mg Heparin Sodium (Porcine) (Heparin -) 5,000 unit SQ TID [facility] Last Admin: 12/09/16 13:12 Dose: 5,000 unit Pantoprazole Sodium (Protonix 40mg Ivpb (Pre-Docked)) 100 mls @ 200 mls/hr IVPB DAILY [facility] Last Admin: 12/09/16 09:26 Dose: 200 mls/hr Vancomycin HCl 1,250 mg/ (Dextrose) 250 mls @ 125 mls/hr IVPB DAILY@1200 [facility] PRN Reason: Protocol Last Admin: 12/09/16 11:25 Dose: 125 mls/hr Cefepime HCl 2 gm/ Dextrose 100 mls @ 200 mls/hr IVPB Q8H-IV [facility] Last Admin: 12/09/16 09:23 Dose: 200 mls/hr Insulin Aspart (Novolog Vial Sliding Scale -) 1 vial SQ ACHS [facility] PRN Reason: Protocol Last Admin: 12/09/16 11:24 Dose: 1 unit Metoprolol Tartrate (Lopressor -) 50 mg PO DAILY [facility] Last Admin: 12/09/16 09:25 Dose: 50 mg Sodium Chloride (Normal Saline -) 1,000 ml IV Q20M PRN PRN Reason: MAP<65mm Hg OR SBP <90 Last Admin: 12/07/16 11:55 Dose: 1,000 ml Vital Signs Period Temp Pulse Resp BP Sys/Machado Pulse Ox Last 24 Hr 98 F-98.7 F 86-115 18-31 114-169/57-94 98-98 Intake & Output 06/07/2412/07/16 12/08/16 12/09/16 23:59 23:59 23:59 23:59 Intake Total 2181 1920 580 Output Total 200 2100 400 Balance 1980 -180 180 Weight 93.9 kg 75.387 kg EXAM: GEN: C & A on TC, no distress HEENT: R eye ptosis, L eye reactive, trach site C/D/I, MMM PULM: few scat rhonchi, improved w/ cough CV: nml S1 S2, irr, irr ABD: + BS, S/S N/T N/D X4Q, perc vaibhav drain site c/d/i draining bilious secretions EXT: + Pulses, WWPX4, no edema NEYRO: following commands able to move R side only CBC, BMP 12/09/16 05:15 12/09/16 05:15 Microbiology 12/08/16 09:00 Sputum - Endotracheal Suction W/O Vent Gram Stain - Final 12/08/16 09:00 Sputum - Endotracheal Suction W/O Vent Sputum Culture - Preliminary Non Lactose Fermenting Gnb Yeast Like Organism 12/07/16 09:57 Blood - Peripheral Venous Blood Culture - Preliminary NO GROWTH OBTAINED AFTER 48 HOURS, INCUBATION TO CONTINUE FOR 3 DAYS. 12/07/16 09:57 Blood - Peripheral Venous Blood Culture - Preliminary NO GROWTH OBTAINED AFTER 48 HOURS, INCUBATION TO CONTINUE FOR 3 DAYS. 12/07/16 11:00 Urine - Urine Clean Catch Urine Culture - Final Yeast Like Organism CXR 12/09: Trach, retro-cardiac opacity, otherwise clear (My Read) ASSESS: -Chronic & paroxysmal acute Respiratory Failure (m/l 2/2 mucus plugging c/b malfunctioning Trach Balloon) -Sepsis (likely from a biliary source given perc vaibhav drain) -R/O PNA -Lactic Acidosis -A-fib PLAN: -f/u replacement Trach -ABX per ID -IVF -cont TCM -TFs -cont PPI -DVT prophylaxis -Stable for floor transfer Matias Avendano, ACNP-BC [id number] Pulm/CCM CCT: [phone]
[2016-12-09] MEDS: ATORVASTATIN CA 40 MG TABLET (FP) PO SCH (21:50)
[2016-12-10] MEDS ORDERED: PT OWN MED DRAWER 7, Y5N ONE ×2 (01:22→10:45)
[2016-12-10] MEDS: CEFEPIME 2 GM in DEXTROSE 5%-WATER - 100 ML IVPB SCH ×2 (01:34→09:44)
[2016-12-10] MEDS: HEPARIN NA (PORCINE) 5,000 UNITS/ML 1ML VIAL SQ SCH ×3 (06:17→22:10)
[2016-12-10] MEDS: INSULIN SLIDING SCALE (NOVOLOG) 1 VIAL SQ SCH ×4 (06:18→22:23)
[2016-12-10 06:22] LABS: MCHC 32.1 g/dl (32.0-35.9); MEAN PLT VOLUME 8.2 fl (7.5-11.1); PLATELET COUNT 483 K/MM3 (134-434); WHITE BLOOD COUNT 8.7 K/mm3 (4.0-10.0)
[2016-12-10] MEDS: ALBUTEROL SO4 2.5/IPRATROPIUM 0.5 INH SOL 3 ML VIAL.NEB. NEB SCH ×3 (06:37→17:23)
[2016-12-10 06:40] LABS: CALCIUM 8.6 mg/dL (8.5-10.1); COCKROFT - GAULT 62.82; CREATININE 0.9 mg/dL (0.7-1.3); MAGNESIUM 1.8 mg/dL (1.8-2.4)
[2016-12-10] MEDS: ASPIRIN 81 MG CHEWABLE TABLETS PO SCH (09:41)
[2016-12-10] MEDS: METOPROLOL TARTRATE 50 MG TABLET (FP) PO SCH (09:41)
[2016-12-10] MEDS: PANTOPRAZOLE SODIUM 100 ML IVPB SCH (09:49)
--- NOTE | 2016-12-10 10:07 | PN ---
Progress Note, Physician - Current Medication List Current Medications: Active Medications Acetaminophen (Tylenol Suppository -) 650 mg [place] Q6H PRN PRN Reason: FEVER OR PAIN Albuterol/Ipratropium (Duoneb -) 1 amp NEB QIDR [facility] Last Admin: 12/10/16 06:37 Dose: 1 amp Aspirin (Asa -) 81 mg PO DAILY [facility] Last Admin: 12/09/16 09:25 Dose: 81 mg Atorvastatin Calcium (Lipitor -) 40 mg PO HS [facility] Last Admin: 12/09/16 21:50 Dose: 40 mg Heparin Sodium (Porcine) (Heparin -) 5,000 unit SQ TID [facility] Last Admin: 12/10/16 06:17 Dose: 5,000 unit Pantoprazole Sodium (Protonix 40mg Ivpb (Pre-Docked)) 100 mls @ 200 mls/hr IVPB DAILY [facility] Last Admin: 12/09/16 09:26 Dose: 200 mls/hr Vancomycin HCl 1,250 mg/ (Dextrose) 250 mls @ 125 mls/hr IVPB DAILY@1200 [facility] PRN Reason: Protocol Last Admin: 12/09/16 11:25 Dose: 125 mls/hr Cefepime HCl 2 gm/ Dextrose 100 mls @ 200 mls/hr IVPB Q8H-IV [facility] Last Admin: 12/10/16 01:34 Dose: 200 mls/hr Insulin Aspart (Novolog Vial Sliding Scale -) 1 vial SQ ACHS [facility] PRN Reason: Protocol Last Admin: 12/10/16 06:18 Dose: 1 unit Metoprolol Tartrate (Lopressor -) 50 mg PO DAILY [facility] Last Admin: 12/09/16 09:25 Dose: 50 mg Sodium Chloride (Normal Saline -) 1,000 ml IV Q20M PRN PRN Reason: MAP<65mm Hg OR SBP <90 Last Admin: 12/07/16 11:55 Dose: 1,000 ml - Objective Vital Signs: Vital Signs Temperature 98.3 F 12/10/16 06:00 Pulse Rate 98 H 12/10/16 08:00 Respiratory Rate 23 12/10/16 08:56 Blood Pressure 125/65 12/10/16 08:00 O2 Sat by Pulse Oximetry (%) 98 12/10/16 08:56 Labs: CBC, BMP 12/10/16 05:20 12/10/16 05:20 INR, PTT INR 1.22 (0.82-1.09) H 12/07/16 10:30 Assessment/Plan echo 10/2016: sev dilated lv, sev dec lvef, rv mod dilated/mod dec rv fcn, reina, mild mr cxr: LLL opacity/effusion Assessment/Plan 86-year-old man with h/o respiratory failure s/p trach, peg tube, recent cholecystitis with drainage, hypertension, hypercholesterolemia, coronary artery disease status post bare metal stent placement, systolic cardiomyopathy, right atrial lipoma, latent tuberculosis, Alzheimer's dementia and diabetes mellitus who p/w hypoxia. acute hypoxic resp failure, PNA/sepsis -s/p trach, vent support per pulm -abx per ID, crit care -hemodynamically stable -mucous plugging/trach malfunction intermittently--per crit care prior h/o CAD, recent nstemi here in October -trop x2 unremarkable, no clinical findings of ACS here -cont ASA, statin, BB as doing -plavix previously deferred given advanced age, tenuous clinical status/serious comorbid processes systolic cardiomyopathy - severe dec lvef, no RWMA described on echo from October. Unclear if in setting of sepsis or secondary to underlying CAD. Ischemic work up deferred due to comorbidities, poor functional status/prognosis. - rpt echo here for LVEF (? stunning) - tolerating YINA and BB--cont same NSVT on prior admission - tele monitoring - replete K/Mg prn (usual targets) hypoalbuminemia/poor nutrition: -per crit care
--- NOTE | 2016-12-10 11:54 | PN ---
Progress Note (short form) - Note Progress Note: ID Cefepime and Vancomycin Selected Entries 12/10/16 06:00 Temperature 98.3 F Pulse Rate 97 H Respiratory 23 Rate Blood Pressure 132/70 Microbiology 12/08/16 09:00 Sputum - Endotracheal Suction W/O Vent Gram Stain - Final 12/07/16 11:00 Urine - Urine Clean Catch Urine Culture - Final Yeast Like Organism 12/08/16 09:00 Sputum - Endotracheal Suction W/O Vent Sputum Culture - Preliminary Pseudomonas Aeruginosa Yeast Like Organism Laboratory Tests 12/10/16 12/10/16 05:20 05:20 WBC 8.7 Hgb 9.2 L Hct 28.7 L Plt Count 483 H BUN 18 Creatinine 0.9 Assessment Respiratory failure Pseudomonas chely 4 ceftazidime Colinazation vs systemic infection yeast Plan Continue Ceftazidime Add diflucan Stop Vanco Problem List - Problems (1) Sepsis Code(s): A41.9 - SEPSIS, UNSPECIFIED ORGANISM Qualifiers: (2) Acute respiratory failure with hypoxia Code(s): J96.01 - ACUTE RESPIRATORY FAILURE WITH HYPOXIA
[2016-12-10] MEDS ORDERED: FLUCONAZOLE 400 MG/D5W 200 ML IVPB SCH (12:15)
--- NOTE | 2016-12-10 14:46 | PN ---
Teaching Attending Note Name of Resident: Rashida Acuna ATTENDING PHYSICIAN STATEMENT I saw and evaluated the patient. I reviewed the resident's note and discussed the case with the resident. I agree with the resident's findings and plan as documented. SUBJECTIVE: Patient seen and examined in the ICU. Currently on Trach collar. Reported intermittent issues with Trach balloon. Being treated for Pseudomonas / yeast. Intake & Output 12/07/16 12/08/16 12/09/16 12/10/16 23:59 23:59 23:59 23:59 Intake Total 2181 1920 1970 455 Output Total 200 2100 1800 800 Balance 1980 - 170 -345 Weight 207 lb 0.225 oz 166 lb 3.2 oz 163 lb 8 oz Last Vital Signs Temp Pulse Resp BP Pulse Ox 98.2 F 87 19 104/62 99 12/10/16 10:00 12/10/16 14:00 12/10/16 14:00 12/10/16 14:00 12/10/16 10:11 Active Medications Acetaminophen (Tylenol Suppository -) 650 mg DC Q6H PRN PRN Reason: FEVER OR PAIN Albuterol/Ipratropium (Duoneb -) 1 amp NEB QIDR [facility] Last Admin: 12/10/16 11:58 Dose: 1 amp Aspirin (Asa -) 81 mg PO DAILY [facility] Last Admin: 12/10/16 09:41 Dose: 81 mg Atorvastatin Calcium (Lipitor -) 40 mg PO HS [facility] Last Admin: 12/09/16 21:50 Dose: 40 mg Heparin Sodium (Porcine) (Heparin -) 5,000 unit SQ TID [facility] Last Admin: 12/10/16 06:17 Dose: 5,000 unit Pantoprazole Sodium (Protonix 40mg Ivpb (Pre-Docked)) 100 mls @ 200 mls/hr IVPB DAILY [facility] Last Admin: 12/10/16 09:49 Dose: 200 mls/hr Ceftazidime 2 gm/ Dextrose 100 mls @ 200 mls/hr IVPB Q8H-IV [facility] PRN Reason: Protocol Fluconazole (Diflucan 400 Mg/D5w Premixed Ivpb -) 200 mls @ 200 mls/hr IVPB DAILY [facility] Insulin Aspart (Novolog Vial Sliding Scale -) 1 vial SQ ACHS [facility] PRN Reason: Protocol Last Admin: 12/10/16 13:15 Dose: 2 unit Metoprolol Tartrate (Lopressor -) 50 mg PO DAILY [facility] Last Admin: 12/10/16 09:41 Dose: 50 mg Sodium Chloride (Normal Saline -) 1,000 ml IV Q20M PRN PRN Reason: MAP<65mm Hg OR SBP <90 Last Admin: 12/07/16 11:55 Dose: 1,000 ml GENERAL: Lethargic HEAD: No signs of trauma EYES: (-) Icterus, oropharynx clear without exudates. Moist mucosa NECK: Trach in place LUNGS: Bibasilar coarse rhonchi. No wheezes, and no crackles HEART: Regular rate and rhythm, normal S1 and S2, no murmurs, rubs or gallops ABDOMEN: Feeding tube in place. Drain to RUQ with bilious drainage. Soft, nontender, normoactive bowel sounds. No guarding, no rebound. No masses EXTREMITIES: Normal range of motion, no edema. No clubbing or cyanosis. No cords, erythema, or tenderness NEUROLOGICAL: Moving right upper extremity. Some spontaneous eye opening. SKIN: Warm, Dry, normal turgor, no rashes or lesions noted. HEMATOLOGIC/LYMPHATIC: No anemia, easy bleeding, or history of blood clots. ALLERGIC/IMMUNOLOGIC: Laboratory Results - last 24 hr 12/09/16 12/09/16 12/09/16 11:24 16:21 21:53 WBC RBC Hgb Hct MCV MCHC RDW Plt Count MPV Sodium Potassium Chloride Carbon Dioxide Anion Gap BUN Creatinine POC Glucometer 190.96195 222.58268 184.71941 Random Glucose Calcium Phosphorus Magnesium 12/10/16 12/10/16 12/10/16 05:20 05:20 06:05 WBC 8.7 RBC 3.54 L Hgb 9.2 L Hct 28.7 L MCV 81.0 MCHC 32.1 RDW 16.0 H Plt Count 483 H MPV 8.2 Sodium 135 L Potassium 3.8 Chloride 102 Carbon Dioxide 27 Anion Gap 6 L BUN 18 Creatinine 0.9 POC Glucometer [phone] Random Glucose 152 H D Calcium 8.6 Phosphorus 2.0 L D Magnesium 1.8 D IMP: Acute on chronic Respiratory Failure due to malfunctioning Trach Balloon ( suspect larger component of Malpositioning in a the Tracheal space) Sepsis : likely from a biliary source PNA Lactic Acidosis PLAN: ABX/Diflucan per ID Trach collar as tolerated Replacement Trach has been ordered through the OR VTE prophylaxis Vent floor Dr Pruett Critical care time spent in reviewing chart, evaluating patient and formulating plan 35 min
--- NOTE | 2016-12-10 15:42 | PN ---
Progress Note, Physician History of Present Illness: Pt seen and examined at bedside. He remains in the ICU. - Current Medication List Current Medications: Active Medications Acetaminophen (Tylenol Suppository -) 650 mg NM Q6H PRN PRN Reason: FEVER OR PAIN Albuterol/Ipratropium (Duoneb -) 1 amp NEB QIDR [facility] Last Admin: 12/10/16 11:58 Dose: 1 amp Aspirin (Asa -) 81 mg PO DAILY [facility] Last Admin: 12/10/16 09:41 Dose: 81 mg Atorvastatin Calcium (Lipitor -) 40 mg PO HS [facility] Last Admin: 12/09/16 21:50 Dose: 40 mg Heparin Sodium (Porcine) (Heparin -) 5,000 unit SQ TID [facility] Last Admin: 12/10/16 06:17 Dose: 5,000 unit Pantoprazole Sodium (Protonix 40mg Ivpb (Pre-Docked)) 100 mls @ 200 mls/hr IVPB DAILY [facility] Last Admin: 12/10/16 09:49 Dose: 200 mls/hr Ceftazidime 2 gm/ Dextrose 100 mls @ 200 mls/hr IVPB Q8H-IV [facility] PRN Reason: Protocol Fluconazole (Diflucan 400 Mg/D5w Premixed Ivpb -) 200 mls @ 200 mls/hr IVPB DAILY [facility] Insulin Aspart (Novolog Vial Sliding Scale -) 1 vial SQ ACHS [facility] PRN Reason: Protocol Last Admin: 12/10/16 13:15 Dose: 2 unit Metoprolol Tartrate (Lopressor -) 50 mg PO DAILY [facility] Last Admin: 12/10/16 09:41 Dose: 50 mg Sodium Chloride (Normal Saline -) 1,000 ml IV Q20M PRN PRN Reason: MAP<65mm Hg OR SBP <90 Last Admin: 12/07/16 11:55 Dose: 1,000 ml - Objective Vital Signs: Vital Signs Temperature 98.2 F 12/10/16 10:00 Pulse Rate 87 12/10/16 14:00 Respiratory Rate 19 12/10/16 14:00 Blood Pressure 104/62 12/10/16 14:00 O2 Sat by Pulse Oximetry (%) 99 12/10/16 10:11 Constitutional: Yes: Calm Neck: Yes: Other (trache) Cardiovascular: Yes: S1, S2 Respiratory: Yes: Other (bilateral air entry) Genitourinary: Yes: Palacio Present Musculoskeletal: Yes: Muscle Weakness Edema: No Neurological: Yes: Pre-Existing Deficit Labs: CBC, BMP 12/10/16 05:20 12/10/16 05:20 INR, PTT INR 1.22 (0.82-1.09) H 12/07/16 10:30 Problem List - Problems (1) Sepsis Code(s): A41.9 - SEPSIS, UNSPECIFIED ORGANISM Qualifiers: (2) Acute respiratory failure with hypoxia Code(s): J96.01 - ACUTE RESPIRATORY FAILURE WITH HYPOXIA (3) Alzheimer disease Code(s): G30.9 - ALZHEIMER'S DISEASE, UNSPECIFIED Qualifiers: Alzheimer's disease onset: early-onset Dementia behavioral disturbance : without behavioral disturbance Qualified Code(s): G30.0 - Alzheimer's disease with early onset; F02.81 - Dementia in other diseases classified elsewhere with behavioral disturbance (4) Lactic acid blood increased Code(s): R79.89 - OTHER SPECIFIED ABNORMAL FINDINGS OF BLOOD CHEMISTRY (5) JULIET (acute kidney injury) Code(s): N17.9 - ACUTE KIDNEY FAILURE, UNSPECIFIED Assessment/Plan Current Medications Generic Name Dose Route Start Last Admin Trade Name Freq PRN Reason Stop Dose Admin Acetaminophen 650 mg 12/07/16 12:51 Tylenol Suppository - NM Q6H PRN FEVER OR PAIN Albuterol/Ipratropium 1 amp 12/08/16 12:00 12/10/16 11:58 Duoneb - NEB 1 amp QIDR [facility] Administration Aspirin 81 mg 12/08/16 12:00 12/10/16 09:41 Asa - PO 81 mg DAILY [facility] Administration Atorvastatin Calcium 40 mg 12/08/16 22:00 12/09/16 21:50 Lipitor - PO 40 mg HS [facility] Administration Heparin Sodium (Porcine) 5,000 unit 12/08/16 14:00 12/10/16 06:17 Heparin - SQ 5,000 unit TID [facility] Administration Pantoprazole Sodium 100 mls @ 200 mls/hr 12/07/16 13:00 12/10/16 09:49 Protonix 40mg Ivpb (Pre-Docked) IVPB 200 mls/hr DAILY [facility] Administration Ceftazidime 2 gm/ Dextrose 100 mls @ 200 mls/hr 12/10/16 18:00 IVPB Q8H-IV [facility] Protocol Fluconazole 200 mls @ 200 mls/hr 12/10/16 12:15 Diflucan 400 Mg/D5w Premixed Ivpb - IVPB DAILY [facility] Insulin Aspart 1 vial 12/09/16 07:00 12/10/16 13:15 Novolog Vial Sliding Scale - SQ 2 unit ACHS [facility] Administration Protocol Metoprolol Tartrate 50 mg 12/08/16 17:30 12/10/16 09:41 Lopressor - PO 50 mg DAILY [facility] Administration Sodium Chloride 1,000 ml 12/07/16 09:57 12/07/16 11:55 Normal Saline - IV 1,000 ml Q20M PRN Administration MAP<65mm Hg OR SBP <90 Impression 1. JULIET 2. sepsis 3. resp failure 4. hx cholecytitis 5. lactic acidosis Plan - cont with tube feeds - renal function is stable - can give bolus if he gets hypotensive - abx per ID - renal ultrasound is negative for hydro and shows bilateral renal cysts - tache care - JULIET likely from sepsis and pre-renal disease - will follow Dr Alvarez
--- NOTE | 2016-12-10 16:55 | PN ---
Physical Exam: SUBJECTIVE: Patient seen and examined. The pt is nonverbal. No overnight events. OBJECTIVE: Vital Signs Period Temp Pulse Resp BP Sys/Machado Pulse Ox Last 24 Hr 97.8 F-98.4 F 78-103 18-30 91-160/57-82 98-99 GENERAL: The patient is nonverbal, on mechanical ventilation HEAD: Normal with no signs of trauma. EYES: extraocular movements intact, sclera anicteric, conjunctiva clear. ENT: oropharynx clear without exudates, moist mucous membranes. NECK: Trachea midline, full range of motion, supple, trach and collar applied. LUNGS: Breath sounds equal, coarse breath sounds bilaterally, no crackles, no accessory muscle use. HEART: Regular rate and rhythm, S1, S2 without murmur, rub or gallop. ABDOMEN: Soft, nontender, nondistended, normoactive bowel sounds, no guarding, no rebound, no hepatosplenomegaly, no masses, drain in RUQ draining dark fluid, peg tube, no skin erythema. EXTREMITIES: warm, no edema. NEUROLOGICAL: No facial asymmetry. Normal speech, gait not observed. PSYCH: Normal mood, normal affect. SKIN: Warm, dry, normal turgor, no rashes. Laboratory Results - last 24 hr 12/09/16 12/09/16 12/09/16 11:24 16:21 21:53 WBC RBC Hgb Hct MCV MCHC RDW Plt Count MPV Sodium Potassium Chloride Carbon Dioxide Anion Gap BUN Creatinine POC Glucometer [phone] [phone] Random Glucose Calcium Phosphorus Magnesium 12/10/16 12/10/16 12/10/16 05:20 05:20 06:05 WBC 8.7 RBC 3.54 L Hgb 9.2 L Hct 28.7 L MCV 81.0 MCHC 32.1 RDW 16.0 H Plt Count 483 H MPV 8.2 Sodium 135 L Potassium 3.8 Chloride 102 Carbon Dioxide 27 Anion Gap 6 L BUN 18 Creatinine 0.9 POC Glucometer [phone] Random Glucose 152 H D Calcium 8.6 Phosphorus 2.0 L D Magnesium 1.8 D Active Medications Generic Name Dose Route Start Last Admin Trade Name Freq PRN Reason Stop Dose Admin Acetaminophen 650 mg 12/07/16 12:51 Tylenol Suppository - [place] Q6H PRN FEVER OR PAIN Albuterol/Ipratropium 1 amp 12/08/16 12:00 12/10/16 11:58 Duoneb - NEB 1 amp QIDR [facility] Administration Aspirin 81 mg 12/08/16 12:00 12/10/16 09:41 Asa - PO 81 mg DAILY [facility] Administration Atorvastatin Calcium 40 mg 12/08/16 22:00 12/09/16 21:50 Lipitor - PO 40 mg HS K[facility]OS Administration Heparin Sodium (Porcine) 5,000 unit 12/08/16 14:00 12/10/16 16:00 Heparin - SQ 5,000 unit TID [facility] Administration Pantoprazole Sodium 100 mls @ 200 mls/hr 12/07/16 13:00 12/10/16 09:49 Protonix 40mg Ivpb (Pre-Docked) IVPB 200 mls/hr DAILY [facility] Administration Ceftazidime 2 gm/ Dextrose 100 mls @ 200 mls/hr 12/10/16 18:00 IVPB Q8H-IV [facility] Protocol Fluconazole 200 mls @ 200 mls/hr 12/10/16 12:15 12/10/16 15:57 Diflucan 400 Mg/D5w Premixed Ivpb - IVPB 200 mls/hr DAILY [facility] Administration Insulin Aspart 1 vial 12/09/16 07:00 12/10/16 13:15 Novolog Vial Sliding Scale - SQ 2 unit ACHS KARLOS Administration Protocol Metoprolol Tartrate 50 mg 12/08/16 17:30 12/10/16 09:41 Lopressor - PO 50 mg DAILY [facility] Administration Sodium Chloride 1,000 ml 12/07/16 09:57 12/07/16 11:55 Normal Saline - IV 1,000 ml Q20M PRN Administration MAP<65mm Hg OR SBP <90 Microbiology 12/07/16 09:57 Blood - Peripheral Venous Blood Culture - Preliminary NO GROWTH OBTAINED AFTER 72 HOURS, INCUBATION TO CONTINUE FOR 2 DAYS. 12/07/16 09:57 Blood - Peripheral Venous Blood Culture - Preliminary NO GROWTH OBTAINED AFTER 72 HOURS, INCUBATION TO CONTINUE FOR 2 DAYS. 12/08/16 09:00 Sputum - Endotracheal Suction W/O Vent Gram Stain - Final 12/08/16 09:00 Sputum - Endotracheal Suction W/O Vent Sputum Culture - Preliminary Pseudomonas Aeruginosa Yeast Like Organism 12/07/16 11:00 Urine - Urine Clean Catch Urine Culture - Final Yeast Like Organism ASSESSMENT/PLAN: Patient is an 86 year old male with significant medical hx of HTN, HLD, CAD s/p bare metal stent placement, A.Fib, right atrial lipoma, latent TB, Alzheimers disease, and DM who is presenting to the ED via EMS from [facility] for respiratory distress. Patient was found desaturating to 70s by care home staff. He was admitted for respiratory failure. Hypoxic Respiratory failure: possibly due to tracheostomy tube malfunction/possible PNA CXR indicates possible infiltrates on left side continue Oxygen Supplementation, cont. mech ventilation ordered new trach tube to be replaced, will change it tomorrow continue Cefepime and Vancomycin ID consulted, will f/u recommendation sputum positive for Pseudomonas and yeast cont Diflucan Sepsis; possibly due to PNA/UTI/biliary source cholecystectomy tube still in place, draining brown fluid CXR possible infiltrate tachycardia, hypoxia and leukocytosis continue antibiotics, blood cultures and urine cultures pending LA not elevated ID consulted A.Fib: continue home medications HTN: -cont Lopressor HDL: -cont home meds Alzheimers: cont home meds DVT PPX: SCds F/E/N: Glucerna 1.5 @ 50mls/hr x 24hrs with H20 flushes/no changes/NS Dispo: Transfer to med surg. We will continue to follow the patient. Thank you for this consultative opportunity. 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 - New Patient This patient is new to me today: No - Critical Care Critical Care patient: Yes Total Critical Care Time (in minutes): 50 Critical Care Statement: The care of this patient involved high complexity decision making to prevent further life threatening deterioration of the patient 's condition and/or to evalute & treat vital organ system(s) failure or risk of failure.
[2016-12-10] MEDS: CEFTAZIDIME PENTAHYDRATE 2 GM in DEXTROSE 5%-WATER - 100 ML IVPB SCH (17:48)
--- NOTE | 2016-12-10 20:24 | PN ---
Progress Note (short form) - Note Progress Note: History of Present Illness: No other CV events Current Medications Acetaminophen (Tylenol Suppository -) 650 mg [place] Q6H PRN PRN Reason: FEVER OR PAIN Albuterol/Ipratropium (Duoneb -) 1 amp NEB QIDR [facility] Last Admin: 12/10/16 17:23 Dose: 1 amp Aspirin (Asa -) 81 mg PO DAILY [facility] Last Admin: 12/10/16 09:41 Dose: 81 mg Atorvastatin Calcium (Lipitor -) 40 mg PO HS [facility] Last Admin: 12/09/16 21:50 Dose: 40 mg Heparin Sodium (Porcine) (Heparin -) 5,000 unit SQ TID [facility] Last Admin: 12/10/16 16:00 Dose: 5,000 unit Pantoprazole Sodium (Protonix 40mg Ivpb (Pre-Docked)) 100 mls @ 200 mls/hr IVPB DAILY [facility] Last Admin: 12/10/16 09:49 Dose: 200 mls/hr Ceftazidime 2 gm/ Dextrose 100 mls @ 200 mls/hr IVPB Q8H-IV [facility] PRN Reason: Protocol Last Admin: 12/10/16 17:48 Dose: 200 mls/hr Fluconazole (Diflucan 400 Mg/Ns Premixed Ivpb -) 200 mls @ 200 mls/hr IVPB DAILY [facility] Insulin Aspart (Novolog Vial Sliding Scale -) 1 vial SQ ACHS [facility] PRN Reason: Protocol Last Admin: 12/10/16 17:47 Dose: 2 unit Metoprolol Tartrate (Lopressor -) 50 mg PO DAILY [facility] Last Admin: 12/10/16 09:41 Dose: 50 mg Sodium Chloride (Normal Saline -) 1,000 ml IV Q20M PRN PRN Reason: MAP<65mm Hg OR SBP <90 Last Admin: 12/07/16 11:55 Dose: 1,000 ml Vital Signs - 24 hr 12/09/16 12/10/16 12/10/16 22:00 00:00 02:00 Temperature 97.8 F 98.4 F Pulse Rate 101 H 99 H 103 H Respiratory 23 30 H 25 H Rate Blood Pressure 137/61 120/58 148/82 O2 Sat by Pulse Oximetry (%) 12/10/16 12/10/16 12/10/16 04:00 06:00 08:00 Temperature 98.3 F Pulse Rate 98 H 97 H 98 H Respiratory 25 H 23 22 Rate Blood Pressure 129/64 132/70 125/65 O2 Sat by Pulse Oximetry (%) 12/10/16 12/10/16 12/10/16 08:56 10:00 10:11 Temperature 98.2 F Pulse Rate 79 95 H Respiratory 23 20 Rate Blood Pressure 91/57 O2 Sat by Pulse 98 99 Oximetry (%) 12/10/16 12/10/16 12/10/16 12:00 14:00 16:00 Temperature Pulse Rate 80 87 78 Respiratory 18 19 20 Rate Blood Pressure 96/60 104/62 123/65 O2 Sat by Pulse Oximetry (%) Intake & Output 12/08/16 12/09/16 12/10/16 12/11/16 07:59 07:59 07:59 07:59 Intake Total 2762 1919 1845 930 Output Total 600 2100 2200 400 Balance 2271 -192 -961 530 Weight 207 lb 0.225 oz 166 lb 3.2 oz 163 lb 8 oz nad, calm lethargic, not opening eyes to stimuli jvd flat, neck supple trach on vent ctab, nl effort rrr nl s1, s2 no mrg + bs soft nt nd + peg ext without e/c/c diminished dp/pt no carotid bruit CBC, BMP 12/10/16 05:20 12/10/16 05:20 Laboratory Tests 12/10/16 05:20 Magnesium 1.8 D ekg: sinus tach, lad, rbbb. anterior q waves, lateral STD tele: SR/stach. pac, pvc echo 10/2016: sev dilated lv, sev dec lvef, rv mod dilated/mod dec rv fcn, reina, mild mr cxr: LLL opacity/effusion Assessment/Plan 86-year-old man with h/o respiratory failure s/p trach, peg tube, recent cholecystitis with drainage, hypertension, hypercholesterolemia, coronary artery disease status post bare metal stent placement, systolic cardiomyopathy, right atrial lipoma, latent tuberculosis, Alzheimer's dementia and diabetes mellitus who p/w hypoxia. acute hypoxic resp failure, PNA/sepsis -s/p trach, vent support per pulm -abx per ID, crit care - + hypotension, JULIET --> s/p IVF resucitation. No concern for residual volume overload at this time. prior h/o CAD, recent nstemi here in October - ce's negative, lateral STD on ekg. continue michael. At risk for strain, demand ischemia. -resumed ASA, statin. metoprolol now resumed -plavix previously deferred given advanced age, tenuous clinical status/serious comorbid processes systolic cardiomyopathy - severe dec lvef, (no RWMA) described on echo from October. Unclear if in setting of sepsis or secondary to underlying CAD. Ischemic work up deferred due to comorbidities, poor functional status/prognosis. - monitor volume status on ivf - stable. HF regimen (kathie, aldactone, lasix as outpatient) currenly on hold with hypotension/juliet - -12/09 restarted on beta regina - Repeat echo shows normalization of EF. In light of ectopy would prioritize uptitration of metoprolol over ACEI. Still with intermittent soft pressures. Change 50 lopressor to 25 TID.
--- NOTE | 2016-12-10 21:30 | PN ---
Progress Note, Physician Chief Complaint: PATIENT IN ICU TUBE FEEDS RESTARTED STABLE ON 02 VIA TRACH - Current Medication List Current Medications: Active Medications Acetaminophen (Tylenol Suppository -) 650 mg [place] Q6H PRN PRN Reason: FEVER OR PAIN Albuterol/Ipratropium (Duoneb -) 1 amp NEB QIDR [facility] Last Admin: 12/10/16 17:23 Dose: 1 amp Aspirin (Asa -) 81 mg PO DAILY [facility] Last Admin: 12/10/16 09:41 Dose: 81 mg Atorvastatin Calcium (Lipitor -) 40 mg PO HS [facility] Last Admin: 12/09/16 21:50 Dose: 40 mg Heparin Sodium (Porcine) (Heparin -) 5,000 unit SQ TID [facility] Last Admin: 12/10/16 16:00 Dose: 5,000 unit Pantoprazole Sodium (Protonix 40mg Ivpb (Pre-Docked)) 100 mls @ 200 mls/hr IVPB DAILY [facility] Last Admin: 12/10/16 09:49 Dose: 200 mls/hr Ceftazidime 2 gm/ Dextrose 100 mls @ 200 mls/hr IVPB Q8H-IV [facility] PRN Reason: Protocol Last Admin: 12/10/16 17:48 Dose: 200 mls/hr Fluconazole (Diflucan 400 Mg/Ns Premixed Ivpb -) 200 mls @ 200 mls/hr IVPB DAILY [facility] Insulin Aspart (Novolog Vial Sliding Scale -) 1 vial SQ ACHS [facility] PRN Reason: Protocol Last Admin: 12/10/16 17:47 Dose: 2 unit Metoprolol Tartrate (Lopressor -) 50 mg PO DAILY [facility] Last Admin: 12/10/16 09:41 Dose: 50 mg Sodium Chloride (Normal Saline -) 1,000 ml IV Q20M PRN PRN Reason: MAP<65mm Hg OR SBP <90 Last Admin: 12/07/16 11:55 Dose: 1,000 ml - Objective Vital Signs: Vital Signs Temperature 98.2 F 12/10/16 10:00 Pulse Rate 78 12/10/16 16:00 Respiratory Rate 20 12/10/16 16:00 Blood Pressure 123/65 12/10/16 16:00 O2 Sat by Pulse Oximetry (%) 99 12/10/16 10:11 Constitutional: Yes: Mild Distress Eyes: Yes: WNL HENT: Yes: WNL Neck: Yes: WNL Cardiovascular: Yes: Pulse Irregular Respiratory: Yes: Mechanically Ventilated (VIA TRACHEOSTOMY) Gastrointestinal: Yes: WNL Genitourinary: Yes: Other Musculoskeletal: Yes: Muscle Weakness Extremities: Yes: Other Edema: No Peripheral Pulses WNL: Yes Integumentary: Yes: WNL Wound/Incision: Yes: Dressing Dry and Intact Neurological: Yes: Pre-Existing Deficit ...Motor Strength: LLE, RLE Psychiatric: Yes: Other Labs: CBC, BMP 12/10/16 05:20 12/10/16 05:20 INR, PTT INR 1.22 (0.82-1.09) H 12/07/16 10:30 Problem List - Problems (1) JULIET (acute kidney injury) Code(s): N17.9 - ACUTE KIDNEY FAILURE, UNSPECIFIED (2) Electrolyte abnormality Code(s): E87.8 - OTH DISORDERS OF ELECTROLYTE AND FLUID BALANCE, NEC (3) Pneumonia Code(s): J18.9 - PNEUMONIA, UNSPECIFIED ORGANISM Qualifiers: Pneumonia type: due to Pseudomonas Laterality: bilateral Lung location: lower lobe of lung Qualified Code(s): J15.1 - Pneumonia due to Pseudomonas (4) Sepsis Code(s): A41.9 - SEPSIS, UNSPECIFIED ORGANISM Qualifiers: Sepsis type: Pseudomonas Qualified Code(s): A41.52 - Sepsis due to Pseudomonas (5) Acute respiratory failure with hypoxia Code(s): J96.01 - ACUTE RESPIRATORY FAILURE WITH HYPOXIA (6) Cerebrovascular disease Code(s): I67.9 - CEREBROVASCULAR DISEASE, UNSPECIFIED (7) Trachea displaced Code(s): J39.8 - OTHER SPECIFIED DISEASES OF UPPER RESPIRATORY TRACT Assessment/Plan PSEUDOMONAS IN PNA / LUNG IV ABX CONTACT PRECAUTIONS TRACHEOSTOMY TO BE CHANGED 02 SUPPORT OLD CVA TUBE FEEDS CONTINUE RENAL FAILURE IMPROVING
[2016-12-10] MEDS: ATORVASTATIN CA 40 MG TABLET (FP) PO SCH (22:10)
[2016-12-11] MEDS: ALBUTEROL SO4 2.5/IPRATROPIUM 0.5 INH SOL 3 ML VIAL.NEB. NEB SCH ×5 (00:07→17:36)
[2016-12-11] MEDS ORDERED: PT OWN MED DRAWER 7, Y5N ONE ×4 (01:05→21:57)
[2016-12-11] MEDS: CEFTAZIDIME PENTAHYDRATE 2 GM in DEXTROSE 5%-WATER - 100 ML IVPB SCH ×3 (01:17→17:14)
[2016-12-11] MEDS: HEPARIN NA (PORCINE) 5,000 UNITS/ML 1ML VIAL SQ SCH ×3 (06:45→22:08)
[2016-12-11] MEDS: INSULIN SLIDING SCALE (NOVOLOG) 1 VIAL SQ SCH ×4 (07:15→23:00)
--- NOTE | 2016-12-11 09:35 | PN ---
Progress Note (short form) - Note Progress Note: CC: hypoxia History of Present Illness: Remains lethargic. CXR unchanged today. No other CV events Current Medications Acetaminophen (Tylenol Suppository -) 650 mg [place] Q6H PRN PRN Reason: FEVER OR PAIN Albuterol/Ipratropium (Duoneb -) 1 amp NEB QIDR [facility] Last Admin: 12/11/16 07:00 Dose: 1 amp Aspirin (Asa -) 81 mg PO DAILY [facility] Last Admin: 12/10/16 09:41 Dose: 81 mg Atorvastatin Calcium (Lipitor -) 40 mg PO HS [facility] Last Admin: 12/10/16 22:10 Dose: 40 mg Heparin Sodium (Porcine) (Heparin -) 5,000 unit SQ TID [facility] Last Admin: 12/11/16 06:45 Dose: 5,000 unit Pantoprazole Sodium (Protonix 40mg Ivpb (Pre-Docked)) 100 mls @ 200 mls/hr IVPB DAILY [facility] Last Admin: 12/10/16 09:49 Dose: 200 mls/hr Ceftazidime 2 gm/ Dextrose 100 mls @ 200 mls/hr IVPB Q8H-IV [facility] PRN Reason: Protocol Last Admin: 12/11/16 01:17 Dose: 200 mls/hr Fluconazole (Diflucan 400 Mg/Ns Premixed Ivpb -) 200 mls @ 200 mls/hr IVPB DAILY [facility] Insulin Aspart (Novolog Vial Sliding Scale -) 1 vial SQ ACHS [facility] PRN Reason: Protocol Last Admin: 12/11/16 07:15 Dose: 1 unit Metoprolol Tartrate (Lopressor -) 25 mg PO TID [facility] Sodium Chloride (Normal Saline -) 1,000 ml IV Q20M PRN PRN Reason: MAP<65mm Hg OR SBP <90 Last Admin: 12/07/16 11:55 Dose: 1,000 ml Vital Signs - 24 hr 12/10/16 12/10/16 12/10/16 10:00 10:11 12:00 Temperature 98.2 F Pulse Rate 79 95 H 80 Respiratory 20 18 Rate Blood Pressure 91/57 96/60 O2 Sat by Pulse 99 Oximetry (%) 12/10/16 12/10/16 12/10/16 14:00 16:00 20:00 Temperature Pulse Rate 87 78 79 Respiratory 19 20 26 H Rate Blood Pressure 104/62 123/65 126/69 O2 Sat by Pulse Oximetry (%) 12/10/16 12/10/16 12/11/16 21:00 22:00 00:00 Temperature 98.8 F Pulse Rate 88 86 Respiratory 20 28 H 28 H Rate Blood Pressure 131/62 138/74 O2 Sat by Pulse Oximetry (%) 12/11/16 12/11/16 12/11/16 02:00 04:00 06:00 Temperature 98.7 F Pulse Rate 85 83 88 Respiratory 22 26 H 26 H Rate Blood Pressure 129/70 131/75 149/78 O2 Sat by Pulse Oximetry (%) 12/11/16 12/11/16 08:00 08:48 Temperature Pulse Rate 89 Respiratory 26 H 22 Rate Blood Pressure 130/71 O2 Sat by Pulse Oximetry (%) Intake & Output 12/09/16 12/10/16 12/11/16 12/12/16 07:59 07:59 07:59 07:59 Intake Total 1919 1845 1900 Output Total 2100 2200 410 Balance -181 -355 1490 Weight 166 lb 3.2 oz 163 lb 8 oz 162 lb 11.218 oz nad, calm lethargic, not opening eyes to stimuli jvd flat, neck supple trach on vent ctab, nl effort rrr nl s1, s2 no mrg + bs soft nt nd + peg ext without e/c/c diminished dp/pt no carotid bruit no CBC, BMP ekg: sinus tach, lad, rbbb. anterior q waves, lateral STD tele: SR , pvc 2 episodes of nsvt echo 12/2016: nl lv/rv. 1+ mac, 1+ tr rvsp 30-40. small pericardial effusion. echo 10/2016: sev dilated lv, sev dec lvef, rv mod dilated/mod dec rv fcn, reina, mild mr cxr: LLL opacity/effusion Assessment/Plan 86-year-old man with h/o respiratory failure s/p trach, peg tube, recent cholecystitis with drainage, hypertension, hypercholesterolemia, coronary artery disease status post bare metal stent placement, systolic cardiomyopathy, right atrial lipoma, latent tuberculosis, Alzheimer's dementia and diabetes mellitus who p/w hypoxia. acute hypoxic resp failure, PNA/sepsis -s/p trach, vent support per pulm -abx per ID, crit care - + hypotension, JULIET --> s/p IVF resucitation. No concern for residual volume overload at this time. prior h/o CAD, recent nstemi here in October - ce's negative, lateral STD on ekg. continue michael. At risk for strain, demand ischemia. -resumed ASA, statin. metoprolol now resumed -plavix previously deferred given advanced age, tenuous clinical status/serious comorbid processes systolic cardiomyopathy,EF now recovered - severe dec lvef, (no RWMA) described on echo from October. Unclear if in setting of sepsis or secondary to underlying CAD. Ischemic work up deferred due to comorbidities, poor functional status/prognosis. - monitor volume status on ivf - stable. HF regimen (kathie, aldactone, lasix as outpatient) currenly on hold with hypotension/juliet - - 12/09 restarted on beta regina - Repeat echo shows normalization of EF. In light of ectopy would prioritize uptitration of metoprolol over ACEI. Still with intermittent soft pressures. Changed 50 lopressor to 25 TID. First dose today 12/11
[2016-12-11] MEDS: ASPIRIN 81 MG CHEWABLE TABLETS PO SCH (09:42)
[2016-12-11] MEDS: PANTOPRAZOLE SODIUM 100 ML IVPB SCH (09:43)
--- NOTE | 2016-12-11 11:03 | PN ---
Progress Note (short form) - Note Progress Note: NAD Vital Signs Period Temp Pulse Resp BP Sys/Machado Pulse Ox Last 24 Hr 98.6 F-98.8 F 78-100 18-28 96-149/60-78 97 cor-rrr lungs decreased bs at bases abd soft, ext no edema CBC, BMP 12/10/16 05:20 12/10/16 05:20 Microbiology 12/07/16 09:57 Blood - Peripheral Venous Blood Culture - Preliminary NO GROWTH OBTAINED AFTER 96 HOURS, INCUBATION TO CONTINUE FOR 1 DAYS. 12/07/16 09:57 Blood - Peripheral Venous Blood Culture - Preliminary NO GROWTH OBTAINED AFTER 96 HOURS, INCUBATION TO CONTINUE FOR 1 DAYS. 12/08/16 09:00 Sputum - Endotracheal Suction W/O Vent Gram Stain - Final 12/08/16 09:00 Sputum - Endotracheal Suction W/O Vent Sputum Culture - Final Pseudomonas Aeruginosa Yeast Like Organism 12/07/16 11:00 Urine - Urine Clean Catch Urine Culture - Final Yeast Like Organism Current Medications Acetaminophen (Tylenol Suppository -) 650 mg [place] Q6H PRN PRN Reason: FEVER OR PAIN Albuterol/Ipratropium (Duoneb -) 1 amp NEB QIDR [facility] Last Admin: 12/11/16 07:00 Dose: 1 amp Aspirin (Asa -) 81 mg PO DAILY [facility] Last Admin: 12/11/16 09:42 Dose: 81 mg Atorvastatin Calcium (Lipitor -) 40 mg PO HS [facility] Last Admin: 12/10/16 22:10 Dose: 40 mg Heparin Sodium (Porcine) (Heparin -) 5,000 unit SQ TID [facility] Last Admin: 12/11/16 06:45 Dose: 5,000 unit Pantoprazole Sodium (Protonix 40mg Ivpb (Pre-Docked)) 100 mls @ 200 mls/hr IVPB DAILY [facility] Last Admin: 12/11/16 09:43 Dose: 200 mls/hr Ceftazidime 2 gm/ Dextrose 100 mls @ 200 mls/hr IVPB Q8H-IV [facility] PRN Reason: Protocol Last Admin: 12/11/16 09:40 Dose: 200 mls/hr Fluconazole (Diflucan 400 Mg/Ns Premixed Ivpb -) 200 mls @ 200 mls/hr IVPB DAILY [facility] Insulin Aspart (Novolog Vial Sliding Scale -) 1 vial SQ ACHS [facility] PRN Reason: Protocol Last Admin: 12/11/16 07:15 Dose: 1 unit Metoprolol Tartrate (Lopressor -) 25 mg PO TID [facility] Sodium Chloride (Normal Saline -) 1,000 ml IV Q20M PRN PRN Reason: MAP<65mm Hg OR SBP <90 Last Admin: 12/07/16 11:55 Dose: 1,000 ml a/p resp failure pneumonia continue fortaz/diflucan
--- NOTE | 2016-12-11 12:14 | PN ---
Teaching Attending Note Name of Resident: Rashida Acuna ATTENDING PHYSICIAN STATEMENT I saw and evaluated the patient. I reviewed the resident's note and discussed the case with the resident. I agree with the resident's findings and plan as documented. SUBJECTIVE: Patient seen and examined in the ICU. Remains on Trach collar (since Saturday) . Remains on IV ABX for Pseudomonas/yeast in sputum. More awake and alert today. Following commands. Intake & Output 12/08/16 12/09/16 12/10/16 12/11/16 23:59 23:59 23:59 23:59 Intake Total 1920 1970 1535 820 Output Total 2100 1800 1200 10 Balance -180 170 335 810 Weight 166 lb 3.2 oz 163 lb 8 oz 162 lb 11.218 oz Last Vital Signs Temp Pulse Resp BP Pulse Ox 98.6 F 81 26 H 119/65 97 12/11/16 10:00 12/11/16 12:00 12/11/16 12:00 12/11/16 12:00 12/11/16 09:43 Active Medications Acetaminophen (Tylenol Suppository -) 650 mg [place] Q6H PRN PRN Reason: FEVER OR PAIN Albuterol/Ipratropium (Duoneb -) 1 amp NEB QIDR [facility] Last Admin: 12/11/16 11:39 Dose: 1 amp Aspirin (Asa -) 81 mg PO DAILY [facility] Last Admin: 12/11/16 09:42 Dose: 81 mg Atorvastatin Calcium (Lipitor -) 40 mg PO HS [facility] Last Admin: 12/10/16 22:10 Dose: 40 mg Heparin Sodium (Porcine) (Heparin -) 5,000 unit SQ TID [facility] Last Admin: 12/11/16 06:45 Dose: 5,000 unit Pantoprazole Sodium (Protonix 40mg Ivpb (Pre-Docked)) 100 mls @ 200 mls/hr IVPB DAILY [facility] Last Admin: 12/11/16 09:43 Dose: 200 mls/hr Ceftazidime 2 gm/ Dextrose 100 mls @ 200 mls/hr IVPB Q8H-IV [facility] PRN Reason: Protocol Last Admin: 12/11/16 09:40 Dose: 200 mls/hr Fluconazole (Diflucan 400 Mg/Ns Premixed Ivpb -) 200 mls @ 200 mls/hr IVPB DAILY [facility] Insulin Aspart (Novolog Vial Sliding Scale -) 1 vial SQ ACHS [facility] PRN Reason: Protocol Last Admin: 12/11/16 07:15 Dose: 1 unit Metoprolol Tartrate (Lopressor -) 25 mg PO TID [facility] Sodium Chloride (Normal Saline -) 1,000 ml IV Q20M PRN PRN Reason: MAP<65mm Hg OR SBP <90 Last Admin: 12/07/16 11:55 Dose: 1,000 ml GENERAL: Arousable, follows commands HEAD: No signs of trauma EYES: (-) Icterus, oropharynx clear without exudates. Moist mucosa NECK: Trach in place LUNGS: Bibasilar coarse rhonchi. No wheezes, and no crackles HEART: Regular rate and rhythm, normal S1 and S2, no murmurs, rubs or gallops ABDOMEN: Feeding tube in place. Drain to RUQ with bilious drainage. Soft, nontender, normoactive bowel sounds. No guarding, no rebound. No masses EXTREMITIES: Normal range of motion, no edema. No clubbing or cyanosis. No cords, erythema, or tenderness NEUROLOGICAL: Moving right upper extremity. Some spontaneous eye opening. SKIN: Warm, Dry, normal turgor, no rashes or lesions noted. HEMATOLOGIC/LYMPHATIC: No anemia, easy bleeding, or history of blood clots. ALLERGIC/IMMUNOLOGIC: IMP: Acute on chronic Respiratory Failure due to Malpositioning/malfunctioning Trach Balloon (suspect larger component of Malpositioning in a the Tracheal space) Sepsis : likely from a biliary source PNA Lactic Acidosis PLAN: ABX/Diflucan per ID Trach collar as tolerated At this time patient has been off vent support and there been no issues with hypercapnia. Will defer Trach change for now. With further rehab/nutritional support -> hopeful future decannulation VTE prophylaxis Vent floor Dr Pruett Critical care time spent in reviewing chart, evaluating patient and formulating plan 35 min
[2016-12-11] MEDS: METOPROLOL TARTRATE 25 MG TABLET (FP) PO SCH ×3 (13:00→22:08)
--- NOTE | 2016-12-11 14:25 | PN ---
Physical Exam: SUBJECTIVE: Patient seen and examined. No overnight events. He is arousable, foellows commands. OBJECTIVE: Vital Signs Period Temp Pulse Resp BP Sys/Machado Pulse Ox Last 24 Hr 98.6 F-98.8 F 78-100 20-28 118-149/60-78 97 GENERAL: The patient is awake, arousable. HEAD: Normal with no signs of trauma. EYES: extraocular movements intact, sclera anicteric, conjunctiva clear. ENT: oropharynx clear without exudates, moist mucous membranes. NECK: Trachea midline, full range of motion, supple, trach and collar applied. LUNGS: Breath sounds equal, coarse breath sounds bilaterally, no crackles, no accessory muscle use. HEART: Regular rate and rhythm, S1, S2 without murmur, rub or gallop. ABDOMEN: Soft, nontender, nondistended, normoactive bowel sounds, no guarding, no rebound, no hepatosplenomegaly, no masses, drain in RUQ draining dark fluid, peg tube, no skin erythema. EXTREMITIES: warm, no edema. NEUROLOGICAL: No facial asymmetry. Normal speech, gait not observed. PSYCH: Normal mood, normal affect. SKIN: Warm, dry, normal turgor, no rashes. Active Medications Generic Name Dose Route Start Last Admin Trade Name Freq PRN Reason Stop Dose Admin Acetaminophen 650 mg 12/07/16 12:51 Tylenol Suppository - ND Q6H PRN FEVER OR PAIN Albuterol/Ipratropium 1 amp 12/08/16 12:00 12/11/16 11:39 Duoneb - NEB 1 amp QIDR KARLOS Administration Aspirin 81 mg 12/08/16 12:00 12/11/16 09:42 Asa - PO 81 mg DAILY KARLOS Administration Atorvastatin Calcium 40 mg 12/08/16 22:00 12/10/16 22:10 Lipitor - PO 40 mg HS KARLOS Administration Heparin Sodium (Porcine) 5,000 unit 12/08/16 14:00 12/11/16 06:45 Heparin - SQ 5,000 unit TID KARLOS Administration Pantoprazole Sodium 100 mls @ 200 mls/hr 12/07/16 13:00 12/11/16 09:43 Protonix 40mg Ivpb (Pre-Docked) IVPB 200 mls/hr DAILY KARLOS Administration Ceftazidime 2 gm/ Dextrose 100 mls @ 200 mls/hr 12/10/16 18:00 12/11/16 09:40 IVPB 200 mls/hr Q8H-IV KARLOS Administration Protocol Fluconazole 200 mls @ 200 mls/hr 12/11/16 10:00 Diflucan 400 Mg/Ns Premixed Ivpb - IVPB DAILY KARLOS Insulin Aspart 1 vial 12/09/16 07:00 12/11/16 13:45 Novolog Vial Sliding Scale - SQ 2 unit ACHS KARLOS Administration Protocol Metoprolol Tartrate 25 mg 12/11/16 10:00 12/11/16 13:00 Lopressor - PO 25 mg TID KARLOS Administration Sodium Chloride 1,000 ml 12/07/16 09:57 12/07/16 11:55 Normal Saline - IV 1,000 ml Q20M PRN Administration MAP<65mm Hg OR SBP <90 ASSESSMENT/PLAN: Patient is an 86 year old male with significant medical hx of HTN, HLD, CAD s/p bare metal stent placement, A.Fib, right atrial lipoma, latent TB, Alzheimers disease, and DM who is presenting to the ED via EMS from [facility] for respiratory distress. Patient was found desaturating to 70s by [place] staff. He was admitted for respiratory failure. Hypoxic Respiratory failure: possibly due to tracheostomy tube malfunction/possible PNA CXR indicates possible infiltrates on left side continue Oxygen Supplementation no need for change of tracheostomy tube, pt is off mech. ventilation continue Cefepime and Vancomycin ID consulted, will f/u recommendation sputum positive for Pseudomonas and yeast cont Diflucan Sepsis; possibly due to PNA/UTI/biliary source cholecystectomy tube still in place, draining brown fluid CXR possible infiltrate tachycardia, hypoxia and leukocytosis continue antibiotics, blood cultures and urine cultures pending LA not elevated ID consulted A.Fib: continue home medications HTN: -cont Lopressor HDL: -cont Lipitor Alzheimers: cont home meds DVT PPX: SCds F/E/N: Glucerna 1.5 @ 50mls/hr x 24hrs with H20 flushes/no changes/NS Dispo: Transfer to med surg. We will continue to follow the patient. Thank you for this consultative opportunity. 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 - New Patient This patient is new to me today: No - Critical Care Critical Care patient: Yes Total Critical Care Time (in minutes): 40 Critical Care Statement: The care of this patient involved high complexity decision making to prevent further life threatening deterioration of the patient 's condition and/or to evalute & treat vital organ system(s) failure or risk of failure.
[2016-12-11] MEDS: FLUCONAZOLE 400 MG/NS 200 ML IVPB SCH (15:23)
[2016-12-11] MEDS ORDERED: SODIUM CHLORIDE 0.9% 1000 ML INFUS.BAG IV PRN (17:15)
[2016-12-11] MEDS ORDERED: ACETAMINOPHEN 650 MG SUPP.RECT PR PRN (17:15)
--- NOTE | 2016-12-11 19:04 | PN ---
Progress Note, Physician Chief Complaint: EVENTS AND NOTES REVIEWED PATIENT AWAKE TRACHEOSTOMY FUNCTIONING NO DISTRESS - Current Medication List Current Medications: Active Medications Acetaminophen (Tylenol Suppository -) 650 mg RI Q6H PRN PRN Reason: FEVER OR PAIN Albuterol/Ipratropium (Duoneb -) 1 amp NEB QIDR [facility] Last Admin: 12/11/16 17:36 Dose: Not Given Aspirin (Asa -) 81 mg PO DAILY [facility] Atorvastatin Calcium (Lipitor -) 40 mg PO HS [facility] Heparin Sodium (Porcine) (Heparin -) 5,000 unit SQ TID [facility] Ceftazidime 2 gm/ Dextrose 100 mls @ 200 mls/hr IVPB Q8H-IV [facility]AR[facility]OS PRN Reason: Protocol Last Admin: 12/11/16 17:14 Dose: 200 mls/hr Fluconazole (Diflucan 400 Mg/Ns Premixed Ivpb -) 200 mls @ 200 mls/hr IVPB DAILY [facility] Last Admin: 12/11/16 15:23 Dose: 200 mls/hr Pantoprazole Sodium (Protonix 40mg Ivpb (Pre-Docked)) 100 mls @ 200 mls/hr IVPB DAILY [facility] Insulin Aspart (Novolog Vial Sliding Scale -) 1 vial SQ ACHS [facility] PRN Reason: Protocol Metoprolol Tartrate (Lopressor -) 25 mg PO TID [facility] Last Admin: 12/11/16 15:23 Dose: 25 mg Sodium Chloride (Normal Saline -) 1,000 ml IV Q20M PRN PRN Reason: MAP<65mm Hg OR SBP <90 - Objective Vital Signs: Vital Signs Temperature 97.5 F L 12/11/16 14:00 Pulse Rate 84 12/11/16 18:00 Respiratory Rate 22 12/11/16 18:00 Blood Pressure 105/65 12/11/16 18:00 O2 Sat by Pulse Oximetry (%) 100 12/11/16 14:34 Constitutional: Yes: No Distress Eyes: Yes: WNL HENT: Yes: Other Cardiovascular: Yes: Other (TRACHEOSTOMY INTACT) Respiratory: Yes: Other Gastrointestinal: Yes: WNL Genitourinary: Yes: Incontinence, Other Musculoskeletal: Yes: Muscle Weakness Extremities: Yes: WNL Edema: Yes Edema: LLE: Trace, RLE: Trace Peripheral Pulses WNL: Yes Integumentary: Yes: Venous Stasis Changes Wound/Incision: Yes: Dressing Dry and Intact, Unapproximated Neurological: Yes: Pre-Existing Deficit, Weakness ...Motor Strength: LLE, RLE Psychiatric: Yes: Other Labs: CBC, BMP 12/10/16 05:20 12/10/16 05:20 INR, PTT INR 1.22 (0.82-1.09) H 12/07/16 10:30 Problem List - Problems (1) JULIET (acute kidney injury) Code(s): N17.9 - ACUTE KIDNEY FAILURE, UNSPECIFIED (2) Electrolyte abnormality Code(s): E87.8 - OTH DISORDERS OF ELECTROLYTE AND FLUID BALANCE, NEC (3) Pneumonia Code(s): J18.9 - PNEUMONIA, UNSPECIFIED ORGANISM Qualifiers: Pneumonia type: due to Pseudomonas Laterality: bilateral Lung location: lower lobe of lung Qualified Code(s): J15.1 - Pneumonia due to Pseudomonas (4) Sepsis Code(s): A41.9 - SEPSIS, UNSPECIFIED ORGANISM Qualifiers: Sepsis type: Pseudomonas Qualified Code(s): A41.52 - Sepsis due to Pseudomonas (5) Acute respiratory failure with hypoxia Code(s): J96.01 - ACUTE RESPIRATORY FAILURE WITH HYPOXIA (6) Cerebrovascular disease Code(s): I67.9 - CEREBROVASCULAR DISEASE, UNSPECIFIED (7) Trachea displaced Code(s): J39.8 - OTHER SPECIFIED DISEASES OF UPPER RESPIRATORY TRACT Assessment/Plan PSEUDOMONAS IN PNA / LUNG IV ABX CONTACT PRECAUTIONS TRACHEOSTOMY FUNCTIONING NO NEED TO CHANGE PER PULMONARY 02 SUPPORT OLD CVA TUBE FEEDS CONTINUE RENAL FAILURE IMPROVING
[2016-12-11] MEDS: ATORVASTATIN CA 40 MG TABLET (FP) PO SCH (22:08)
[2016-12-12] MEDS: ALBUTEROL SO4 2.5/IPRATROPIUM 0.5 INH SOL 3 ML VIAL.NEB. NEB SCH ×4 (00:05→17:04)
[2016-12-12] MEDS: CEFTAZIDIME PENTAHYDRATE 2 GM in DEXTROSE 5%-WATER - 100 ML IVPB SCH ×3 (01:57→18:29)
[2016-12-12] MEDS: METOPROLOL TARTRATE 25 MG TABLET (FP) PO SCH ×3 (05:58→23:33)
[2016-12-12] MEDS: HEPARIN NA (PORCINE) 5,000 UNITS/ML 1ML VIAL SQ SCH ×3 (06:49→23:33)
[2016-12-12] MEDS: INSULIN SLIDING SCALE (NOVOLOG) 1 VIAL SQ SCH ×4 (06:56→23:43)
[2016-12-12 07:43] LABS: MCH 26.7 pg (25.7-33.7); MCHC 33.2 g/dl (32.0-35.9); MEAN CELL VOLUME 80.2 fl (80-96); MEAN PLT VOLUME 7.9 fl (7.5-11.1); PLATELET COUNT 480 K/MM3 (134-434); RDW 15.8 % (11.9-15.9); WHITE BLOOD COUNT 7.8 K/mm3 (4.0-10.0)
[2016-12-12 07:59] LABS: CALCIUM 9.5 mg/dL (8.5-10.1); CREATININE 0.9 mg/dL (0.7-1.3)
--- NOTE | 2016-12-12 09:55 | PN ---
Progress Note, Physician Chief Complaint: ASLEEP COMFORTABLE - Current Medication List Current Medications: Active Medications Acetaminophen (Tylenol Suppository -) 650 mg NM Q6H PRN PRN Reason: FEVER OR PAIN Albuterol/Ipratropium (Duoneb -) 1 amp NEB QIDR [facility] Last Admin: 12/12/16 06:46 Dose: 1 amp Aspirin (Asa -) 81 mg PO DAILY [facility] Atorvastatin Calcium (Lipitor -) 40 mg PO HS [facility] Last Admin: 12/11/16 22:08 Dose: 40 mg Heparin Sodium (Porcine) (Heparin -) 5,000 unit SQ TID [facility] Last Admin: 12/12/16 06:49 Dose: 5,000 unit Ceftazidime 2 gm/ Dextrose 100 mls @ 200 mls/hr IVPB Q8H-IV [facility] PRN Reason: Protocol Last Admin: 12/12/16 01:57 Dose: 200 mls/hr Fluconazole (Diflucan 400 Mg/Ns Premixed Ivpb -) 200 mls @ 200 mls/hr IVPB DAILY [facility] Last Admin: 12/11/16 15:23 Dose: 200 mls/hr Pantoprazole Sodium (Protonix 40mg Ivpb (Pre-Docked)) 100 mls @ 200 mls/hr IVPB DAILY [facility] Insulin Aspart (Novolog Vial Sliding Scale -) 1 vial SQ ACHS [facility] PRN Reason: Protocol Last Admin: 12/12/16 06:56 Dose: 1 unit Metoprolol Tartrate (Lopressor -) 25 mg PO TID [facility] Last Admin: 12/12/16 05:58 Dose: Not Given Sodium Chloride (Normal Saline -) 1,000 ml IV Q20M PRN PRN Reason: MAP<65mm Hg OR SBP <90 - Objective Vital Signs: Vital Signs Temperature 98.0 F 12/12/16 06:00 Pulse Rate 73 12/12/16 06:00 Respiratory Rate 18 12/12/16 06:25 Blood Pressure 107/59 12/12/16 06:00 O2 Sat by Pulse Oximetry (%) 100 12/11/16 21:00 Constitutional: Yes: Mild Distress Eyes: Yes: WNL HENT: Yes: WNL Neck: Yes: WNL Cardiovascular: Yes: WNL Respiratory: Yes: Other (TRACHEOSTOMY FUNCTIONING) Gastrointestinal: Yes: WNL Genitourinary: Yes: Incontinence Musculoskeletal: Yes: Muscle Weakness Extremities: Yes: Other Edema: Yes Peripheral Pulses WNL: Yes Integumentary: Yes: WNL Wound/Incision: Yes: Dressing Dry and Intact Neurological: Yes: Pre-Existing Deficit ...Motor Strength: LLE, RLE Psychiatric: Yes: Other Labs: CBC, BMP 12/12/16 06:52 12/12/16 06:52 INR, PTT INR 1.22 (0.82-1.09) H 12/07/16 10:30 Problem List - Problems (1) JULIET (acute kidney injury) Code(s): N17.9 - ACUTE KIDNEY FAILURE, UNSPECIFIED (2) Electrolyte abnormality Code(s): E87.8 - OTH DISORDERS OF ELECTROLYTE AND FLUID BALANCE, NEC (3) Pneumonia Code(s): J18.9 - PNEUMONIA, UNSPECIFIED ORGANISM Qualifiers: Pneumonia type: due to Pseudomonas Laterality: bilateral Lung location: lower lobe of lung Qualified Code(s): J15.1 - Pneumonia due to Pseudomonas (4) Sepsis Code(s): A41.9 - SEPSIS, UNSPECIFIED ORGANISM Qualifiers: Sepsis type: Pseudomonas Qualified Code(s): A41.52 - Sepsis due to Pseudomonas (5) Acute respiratory failure with hypoxia Code(s): J96.01 - ACUTE RESPIRATORY FAILURE WITH HYPOXIA (6) Cerebrovascular disease Code(s): I67.9 - CEREBROVASCULAR DISEASE, UNSPECIFIED (7) Trachea displaced Code(s): J39.8 - OTHER SPECIFIED DISEASES OF UPPER RESPIRATORY TRACT Assessment/Plan PSEUDOMONAS IN PNA / LUNG IV ABX PER ID CONTACT PRECAUTIONS TRACHEOSTOMY FUNCTIONING NO NEED TO CHANGE PER PULMONARY 02 SUPPORT OLD CVA TUBE FEEDS CONTINUE RENAL FAILURE IMPROVING DC PLANNING
--- NOTE | 2016-12-12 10:15 | PN ---
Progress Note (short form) - Note Progress Note: NAD doing well Vital Signs Period Temp Pulse Resp BP Sys/Machado Pulse Ox Last 24 Hr 97.5 F-98.8 F 73-100 18-26 105-155/57-70 100-100 cor-rrr lungs decreased bs at bases abd soft,nt ext no edema CBC, BMP 12/12/16 06:52 12/12/16 06:52 Microbiology 12/07/16 09:57 Blood - Peripheral Venous Blood Culture - Preliminary NO GROWTH OBTAINED AFTER 96 HOURS, INCUBATION TO CONTINUE FOR 1 DAYS. 12/07/16 09:57 Blood - Peripheral Venous Blood Culture - Preliminary NO GROWTH OBTAINED AFTER 96 HOURS, INCUBATION TO CONTINUE FOR 1 DAYS. 12/08/16 09:00 Sputum - Endotracheal Suction W/O Vent Gram Stain - Final 12/08/16 09:00 Sputum - Endotracheal Suction W/O Vent Sputum Culture - Final Pseudomonas Aeruginosa Yeast Like Organism 12/07/16 11:00 Urine - Urine Clean Catch Urine Culture - Final Yeast Like Organism Active Medications Acetaminophen (Tylenol Suppository -) 650 mg NM Q6H PRN PRN Reason: FEVER OR PAIN Albuterol/Ipratropium (Duoneb -) 1 amp NEB QIDR [facility] Last Admin: 12/12/16 06:46 Dose: 1 amp Aspirin (Asa -) 81 mg PO DAILY [facility] Atorvastatin Calcium (Lipitor -) 40 mg PO HS [facility] Last Admin: 12/11/16 22:08 Dose: 40 mg Heparin Sodium (Porcine) (Heparin -) 5,000 unit SQ TID [facility] Last Admin: 12/12/16 06:49 Dose: 5,000 unit Ceftazidime 2 gm/ Dextrose 100 mls @ 200 mls/hr IVPB Q8H-IV [facility] PRN Reason: Protocol Last Admin: 12/12/16 01:57 Dose: 200 mls/hr Fluconazole (Diflucan 400 Mg/Ns Premixed Ivpb -) 200 mls @ 200 mls/hr IVPB DAILY [facility] Last Admin: 12/11/16 15:23 Dose: 200 mls/hr Pantoprazole Sodium (Protonix 40mg Ivpb (Pre-Docked)) 100 mls @ 200 mls/hr IVPB DAILY [facility] Insulin Aspart (Novolog Vial Sliding Scale -) 1 vial SQ ACHS [facility]AR[facility]OS PRN Reason: Protocol Last Admin: 12/12/16 06:56 Dose: 1 unit Metoprolol Tartrate (Lopressor -) 25 mg PO TID [facility] Last Admin: 12/12/16 05:58 Dose: Not Given Sodium Chloride (Normal Saline -) 1,000 ml IV Q20M PRN PRN Reason: MAP<65mm Hg OR SBP <90 a/p resp failure pneumonia continue fortaz/diflucan #5 would complete 7 days d/w Dr Zambrano
[2016-12-12] MEDS ORDERED: PT OWN MED DRAWER 7, Y5N ONE ×2 (10:46→18:14)
--- NOTE | 2016-12-12 10:54 | PN ---
Progress Note (short form) - Note Progress Note: PULMONARY CHART REVIEWED APPEARS CHRONICALLY ILL VSS/AFEBRILE TRACH IN PLACE RHONCHI B/L S1S2 PEG NO EDEMA LABS/MEDS/NOTES/IMAGING REVIEWED RESP FAILURE PNEUMONIA OLD CVA TRACH W O2 COLLAR AGREE WITH CURRENT RX PLAN Bernard CAMPA MD
[2016-12-12] MEDS: ASPIRIN 81 MG CHEWABLE TABLETS PO SCH (10:55)
[2016-12-12] MEDS: FLUCONAZOLE 400 MG/NS 200 ML IVPB SCH (12:23)
[2016-12-12] MEDS: PANTOPRAZOLE SODIUM 100 ML IVPB SCH (14:10)
--- NOTE | 2016-12-12 21:15 | PN ---
Progress Note (short form) - Note Progress Note: Progress Note: CC: hypoxia History of Present Illness: opening eyes today, can follow commands. non-verbal, does not make eye contact. Transferred to floor. Current Medications Acetaminophen (Tylenol Suppository -) 650 mg [place] Q6H PRN PRN Reason: FEVER OR PAIN Albuterol/Ipratropium (Duoneb -) 1 amp NEB QIDR [facility] Last Admin: 12/12/16 17:04 Dose: 1 amp Aspirin (Asa -) 81 mg PO DAILY [facility] Last Admin: 12/12/16 10:55 Dose: 81 mg Atorvastatin Calcium (Lipitor -) 40 mg PO HS [facility] Last Admin: 12/11/16 22:08 Dose: 40 mg Collagenase (Santyl -) 1 applic TP DAILY [facility] Heparin Sodium (Porcine) (Heparin -) 5,000 unit SQ TID [facility] Last Admin: 12/12/16 15:08 Dose: 5,000 unit Ceftazidime 2 gm/ Dextrose 100 mls @ 200 mls/hr IVPB Q8H-IV [facility] PRN Reason: Protocol Last Admin: 12/12/16 18:29 Dose: 200 mls/hr Fluconazole (Diflucan 400 Mg/Ns Premixed Ivpb -) 200 mls @ 200 mls/hr IVPB DAILY [facility] Last Admin: 12/12/16 12:23 Dose: 200 mls/hr Pantoprazole Sodium (Protonix 40mg Ivpb (Pre-Docked)) 100 mls @ 200 mls/hr IVPB DAILY [facility] Last Admin: 12/12/16 14:10 Dose: 200 mls/hr Insulin Aspart (Novolog Vial Sliding Scale -) 1 vial SQ ACHS [facility] PRN Reason: Protocol Last Admin: 12/12/16 18:26 Dose: 1 unit Metoprolol Tartrate (Lopressor -) 25 mg PO TID [facility] Last Admin: 12/12/16 15:08 Dose: 25 mg Sodium Chloride (Normal Saline -) 1,000 ml IV Q20M PRN PRN Reason: MAP<65mm Hg OR SBP <90 Vital Signs - 24 hr 12/11/16 12/11/16 12/12/16 21:00 22:00 00:00 Temperature 98.8 F Pulse Rate 100 H 82 Respiratory 24 26 H 18 Rate Blood Pressure 136/63 155/57 O2 Sat by Pulse 100 Oximetry (%) 12/12/16 12/12/16 12/12/16 06:00 06:25 10:53 Temperature 98.0 F Pulse Rate 73 85 Respiratory 18 18 20 Rate Blood Pressure 107/59 131/65 O2 Sat by Pulse Oximetry (%) 12/12/16 15:07 Temperature 98.5 F Pulse Rate 92 H Respiratory 20 Rate Blood Pressure 140/80 O2 Sat by Pulse Oximetry (%) Intake & Output 12/10/16 12/11/16 12/12/16 12/13/16 07:59 07:59 07:59 07:59 Intake Total 1845 1900 1740 300 Output Total 2200 410 15 Balance -355 1490 1725 300 Weight 163 lb 8 oz 162 lb 11.218 oz nad, calm lethargic, not opening eyes to stimuli jvd flat, neck supple on trach collar ctab, nl effort rrr nl s1, s2 no mrg + bs soft nt nd + peg ext without e/c/c diminished dp/pt no carotid bruit CBC, BMP 12/12/16 06:52 12/12/16 06:52 Microbiology 12/08/16 09:00 Sputum - Endotracheal Suction W/O Vent Gram Stain - Final 12/08/16 09:00 Sputum - Endotracheal Suction W/O Vent Sputum Culture - Final Pseudomonas Aeruginosa Yeast Like Organism ekg: sinus tach, lad, rbbb. anterior q waves, lateral STD last tele: SR , pvc 2 episodes of nsvt echo 12/2016: nl lv/rv. 1+ mac, 1+ tr rvsp 30-40. small pericardial effusion. echo 10/2016: sev dilated lv, sev dec lvef, rv mod dilated/mod dec rv fcn, reina, mild mr cxr: LLL opacity/effusion Assessment/Plan 86-year-old man with h/o respiratory failure s/p trach, peg tube, recent cholecystitis with drainage, hypertension, hypercholesterolemia, coronary artery disease status post bare metal stent placement, systolic cardiomyopathy, right atrial lipoma, latent tuberculosis, Alzheimer's dementia and diabetes mellitus who p/w hypoxia. acute hypoxic resp failure, PNA/sepsis. resolving -s/p trach, now off vent support -abx per ID, crit care - + hypotension, JULIET --> s/p IVF resucitation. No concern for residual volume overload at this time. prior h/o CAD, recent nstemi here in October - ce's negative, lateral STD on ekg. -resumed ASA, statin. metoprolol now resumed -additional plavix for prior nstemi previously deferred given advanced age, tenuous clinical status/serious comorbid processes - EF now normalized. systolic cardiomyopathy,EF now recovered - severe dec lvef, (no RWMA) described on echo from October. Unclear if in setting of sepsis or secondary to underlying CAD. Ischemic work up deferred due to comorbidities, poor functional status/prognosis. Now with normalization of EF, prior systolic dysfunction was likely 2/2 sepsis/illness. - monitor volume status on ivf - stable. HF regimen (kathie, aldactone, lasix as outpatient) held for hypotension/juliet - - 12/09 restarted on beta regina - Repeat echo shows normalization of EF. In light of ectopy would prioritize uptitration of metoprolol over ACEI. Still with intermittent soft pressures. Changed 50 lopressor to 25 TID. First dose 12/11 - 12/12 would uptitrate metoprolol dose. Given EF has normalized and patient with G-tube, multiple RF's for JULIET, would not resume home aldactone or lisinopril. Can consider hydral/imdur combo if needed down the road for management of bp. prior CVA - prior documented infarcts. + right ptosis, deviated gaze and possible left sided weakness with underlying dementia, encephalopathy. Deficits previously documented. - con't asa, statin. poor overall prognosis
[2016-12-12] MEDS: ATORVASTATIN CA 40 MG TABLET (FP) PO SCH (23:33)
[2016-12-12] MEDS: COLLAGENASE CLOSTRIDIUM HIST. 30 GRAMS TUBE TP SCH (23:35)
[2016-12-13] MEDS: ALBUTEROL SO4 2.5/IPRATROPIUM 0.5 INH SOL 3 ML VIAL.NEB. NEB SCH ×5 (00:23→23:22)
[2016-12-13] MEDS ORDERED: PT OWN MED DRAWER 7, Y5N ONE ×3 (03:23→16:54)
[2016-12-13] MEDS: CEFTAZIDIME PENTAHYDRATE 2 GM in DEXTROSE 5%-WATER - 100 ML IVPB SCH ×3 (03:30→17:00)
[2016-12-13] MEDS: METOPROLOL TARTRATE 25 MG TABLET (FP) PO SCH ×2 (06:34→14:50)
[2016-12-13] MEDS: HEPARIN NA (PORCINE) 5,000 UNITS/ML 1ML VIAL SQ SCH ×2 (06:34→14:50)
[2016-12-13] MEDS: INSULIN SLIDING SCALE (NOVOLOG) 1 VIAL SQ SCH ×3 (06:43→16:51)
[2016-12-13 08:29] LABS: CALCIUM 9.5 mg/dL (8.5-10.1); CREATININE 0.9 mg/dL (0.7-1.3)
--- NOTE | 2016-12-13 10:42 | PN ---
Progress Note (short form) - Note Progress Note: ID Ceftazidime Fluconazole Selected Entries 12/13/16 12/13/16 05:59 06:00 Temperature 98.7 F Pulse Rate 95 H Respiratory 20 Rate Blood Pressure 123/61 Microbiology 12/08/16 09:00 Sputum - Endotracheal Suction W/O Vent Gram Stain - Final 12/08/16 09:00 Sputum - Endotracheal Suction W/O Vent Sputum Culture - Final Pseudomonas Aeruginosa Yeast Like Organism 12/07/16 11:00 Urine - Urine Clean Catch Urine Culture - Final Yeast Like Organism Laboratory Tests 12/12/16 12/13/16 06:52 07:30 WBC 7.8 Hgb 9.6 L Hct 28.9 L Plt Count 480 H BUN 21 H Assessment Trach patient with PNA with Pseudomonas cultre positive Plan As outlined to stop antibiotic antifungal after saturday am dose Mariana ALFONSO Problem List - Problems (1) Sepsis Code(s): A41.9 - SEPSIS, UNSPECIFIED ORGANISM Qualifiers: Sepsis type: Pseudomonas Qualified Code(s): A41.52 - Sepsis due to Pseudomonas (2) Acute respiratory failure with hypoxia Code(s): J96.01 - ACUTE RESPIRATORY FAILURE WITH HYPOXIA
[2016-12-13] MEDS: FLUCONAZOLE 400 MG/NS 200 ML IVPB SCH (10:52)
[2016-12-13] MEDS: PANTOPRAZOLE SODIUM 100 ML IVPB SCH (10:52)
[2016-12-13] MEDS: ASPIRIN 81 MG CHEWABLE TABLETS PO SCH (10:53)
[2016-12-13] MEDS: COLLAGENASE CLOSTRIDIUM HIST. 30 GRAMS TUBE TP SCH (10:57)
--- NOTE | 2016-12-13 11:58 | PN ---
Progress Note (short form) - Note Progress Note: PULMONARY Pt nonverbal. No fevers recorded. On trach collar. Last Vital Signs Temp Pulse Resp BP Pulse Ox 98.7 F 82 20 123/61 92 L 12/13/16 05:59 12/13/16 10:49 12/13/16 05:59 12/13/16 05:59 12/13/16 10:49 Gen: on trach collar, breathing nonlabored Heart: RRR Lung: scattered rhonchi Abd: soft, nontender Ext: no edema CBC, BMP 12/12/16 06:52 12/13/16 07:30 Active Medications Acetaminophen (Tylenol Suppository -) 650 mg [place] Q6H PRN PRN Reason: FEVER OR PAIN Albuterol/Ipratropium (Duoneb -) 1 amp NEB QIDR [facility] Last Admin: 12/13/16 06:45 Dose: 1 amp Aspirin (Asa -) 81 mg PO DAILY [facility] Last Admin: 12/13/16 10:53 Dose: 81 mg Atorvastatin Calcium (Lipitor -) 40 mg PO HS [facility] Last Admin: 12/12/16 23:33 Dose: 40 mg Collagenase (Santyl -) 1 applic TP DAILY [facility] Last Admin: 12/13/16 10:57 Dose: 1 applic Heparin Sodium (Porcine) (Heparin -) 5,000 unit SQ TID [facility] Last Admin: 12/13/16 06:34 Dose: 5,000 unit Ceftazidime 2 gm/ Dextrose 100 mls @ 200 mls/hr IVPB Q8H-IV [facility] PRN Reason: Protocol Stop: 12/14/16 11:00 Last Admin: 12/13/16 10:52 Dose: 200 mls/hr Fluconazole (Diflucan 400 Mg/Ns Premixed Ivpb -) 200 mls @ 200 mls/hr IVPB DAILY [facility] Stop: 12/14/16 11:00 Last Admin: 12/13/16 10:52 Dose: 200 mls/hr Pantoprazole Sodium (Protonix 40mg Ivpb (Pre-Docked)) 100 mls @ 200 mls/hr IVPB DAILY [facility] Last Admin: 12/13/16 10:52 Dose: 200 mls/hr Insulin Aspart (Novolog Vial Sliding Scale -) 1 vial SQ ACHS [facility] PRN Reason: Protocol Last Admin: 12/13/16 11:24 Dose: 1 unit Metoprolol Tartrate (Lopressor -) 37.5 mg PO TID [facility] Last Admin: 12/13/16 06:34 Dose: 37.5 mg Sodium Chloride (Normal Saline -) 1,000 ml IV Q20M PRN PRN Reason: MAP<65mm Hg OR SBP <90 A/P Acute on Chronic Hypoxic Respiratory Failure improving Pneumonia Sepsis resolving LV systolic dysfunction CAD h/o CVA - continue antibiotics per ID - O2 to keep spO2 >90% - inhaled bronchodilators - trach collar as tolerated - aspiration precautions - DVT prophylaxis
--- NOTE | 2016-12-13 21:11 | PN ---
Progress Note, Physician Chief Complaint: SEEN WITH NURSE THIS MORNING NO ACUTE CHANGES - Current Medication List Current Medications: Active Medications Acetaminophen (Tylenol Suppository -) 650 mg TN Q6H PRN PRN Reason: FEVER OR PAIN Albuterol/Ipratropium (Duoneb -) 1 amp NEB QIDR [facility] Last Admin: 12/13/16 18:44 Dose: 1 amp Aspirin (Asa -) 81 mg PO DAILY [facility] Last Admin: 12/13/16 10:53 Dose: 81 mg Atorvastatin Calcium (Lipitor -) 40 mg PO HS [facility] Last Admin: 12/12/16 23:33 Dose: 40 mg Collagenase (Santyl -) 1 applic TP DAILY [facility] Last Admin: 12/13/16 10:57 Dose: 1 applic Heparin Sodium (Porcine) (Heparin -) 5,000 unit SQ TID [facility] Last Admin: 12/13/16 14:50 Dose: 5,000 unit Ceftazidime 2 gm/ Dextrose 100 mls @ 200 mls/hr IVPB Q8H-IV KARLOS PRN Reason: Protocol Stop: 12/14/16 11:00 Last Admin: 12/13/16 17:00 Dose: 200 mls/hr Fluconazole (Diflucan 400 Mg/Ns Premixed Ivpb -) 200 mls @ 200 mls/hr IVPB DAILY [facility] Stop: 12/14/16 11:00 Last Admin: 12/13/16 10:52 Dose: 200 mls/hr Pantoprazole Sodium (Protonix 40mg Ivpb (Pre-Docked)) 100 mls @ 200 mls/hr IVPB DAILY [facility] Last Admin: 12/13/16 10:52 Dose: 200 mls/hr Insulin Aspart (Novolog Vial Sliding Scale -) 1 vial SQ ACHS KARL[facility] PRN Reason: Protocol Last Admin: 12/13/16 16:51 Dose: Not Given Metoprolol Tartrate (Lopressor -) 37.5 mg PO TID [facility] Last Admin: 12/13/16 14:50 Dose: 37.5 mg Sodium Chloride (Normal Saline -) 1,000 ml IV Q20M PRN PRN Reason: MAP<65mm Hg OR SBP <90 - Objective Vital Signs: Vital Signs Temperature 98.4 F 12/13/16 17:00 Pulse Rate 107 H 12/13/16 18:43 Respiratory Rate 18 12/13/16 17:00 Blood Pressure 130/70 12/13/16 17:00 O2 Sat by Pulse Oximetry (%) 93 L 12/13/16 18:43 Constitutional: Yes: No Distress Eyes: Yes: WNL HENT: Yes: WNL Neck: Yes: WNL Cardiovascular: Yes: WNL Respiratory: Yes: CTA Bilaterally, Other (TRACH ON 02, NO ACUTE DISTRESS) Gastrointestinal: Yes: Other (GALLBLADDER DRAIN INTACT, NON-TENDER ABD) Genitourinary: Yes: Incontinence, Other Musculoskeletal: Yes: Muscle Weakness Extremities: Yes: Other Edema: No Peripheral Pulses WNL: Yes Integumentary: Yes: Rash, Venous Stasis Changes Wound/Incision: Yes: Dressing Dry and Intact Neurological: Yes: Pre-Existing Deficit, Unsteady Gait, Weakness ...Motor Strength: LLE, RLE Psychiatric: Yes: Other Labs: CBC, BMP 12/12/16 06:52 12/13/16 07:30 INR, PTT INR 1.22 (0.82-1.09) H 12/07/16 10:30 Problem List - Problems (1) JULIET (acute kidney injury) Code(s): N17.9 - ACUTE KIDNEY FAILURE, UNSPECIFIED (2) Electrolyte abnormality Code(s): E87.8 - OTH DISORDERS OF ELECTROLYTE AND FLUID BALANCE, NEC (3) Pneumonia Code(s): J18.9 - PNEUMONIA, UNSPECIFIED ORGANISM Qualifiers: Pneumonia type: due to Pseudomonas Laterality: bilateral Lung location: lower lobe of lung Qualified Code(s): J15.1 - Pneumonia due to Pseudomonas (4) Sepsis Code(s): A41.9 - SEPSIS, UNSPECIFIED ORGANISM Qualifiers: Sepsis type: Pseudomonas Qualified Code(s): A41.52 - Sepsis due to Pseudomonas (5) Acute respiratory failure with hypoxia Code(s): J96.01 - ACUTE RESPIRATORY FAILURE WITH HYPOXIA (6) Cerebrovascular disease Code(s): I67.9 - CEREBROVASCULAR DISEASE, UNSPECIFIED (7) Trachea displaced Code(s): J39.8 - OTHER SPECIFIED DISEASES OF UPPER RESPIRATORY TRACT Assessment/Plan IV ABX FINISH TOMORROW WILL DC TO [facility] TOMORROW GALL BLADDER DRAIN QUESTION OF LENGTH OF THERAPY AND PLAN OF CARE, PATIENT IS NEW TO ME THIS SERVICE IR F/U OUTPATIENT
[2016-12-14] MEDS: METOPROLOL TARTRATE 25 MG TABLET (FP) PO SCH ×3 (00:31→13:22)
[2016-12-14] MEDS: ATORVASTATIN CA 40 MG TABLET (FP) PO SCH (00:31)
[2016-12-14] MEDS: HEPARIN NA (PORCINE) 5,000 UNITS/ML 1ML VIAL SQ SCH ×3 (00:32→13:22)
[2016-12-14] MEDS: INSULIN SLIDING SCALE (NOVOLOG) 1 VIAL SQ SCH ×3 (00:49→11:39)
[2016-12-14] MEDS ORDERED: PT OWN MED DRAWER 7, Y5N ONE ×3 (02:47→09:08)
[2016-12-14] MEDS: CEFTAZIDIME PENTAHYDRATE 2 GM in DEXTROSE 5%-WATER - 100 ML IVPB SCH (05:11)
[2016-12-14] MEDS: ALBUTEROL SO4 2.5/IPRATROPIUM 0.5 INH SOL 3 ML VIAL.NEB. NEB SCH ×2 (06:58→11:58)
--- NOTE | 2016-12-14 08:00 | DS ---
Physical Examination Vital Signs: Vital Signs Temperature 98.4 F 12/13/16 17:00 Pulse Rate 66 12/13/16 22:00 Respiratory Rate 18 12/13/16 21:00 Blood Pressure 130/70 12/13/16 17:00 O2 Sat by Pulse Oximetry (%) 95 12/13/16 22:00 Constitutional: Yes: Mild Distress Eyes: Yes: WNL HENT: Yes: WNL Neck: Yes: WNL Cardiovascular: Yes: Pulse Irregular Respiratory: Yes: SOB, Other (tracheostomy) Gastrointestinal: Yes: WNL (gallbladder drain) Renal/: Yes: Incontinence Extremities: Yes: Other Edema: No Peripheral Pulses WNL: Yes Integumentary: Yes: WNL Wound/Incision: Yes: Clean/Dry ...Motor Strength: WNL, LLE, RLE Psychiatric: Yes: Other Labs: CBC, BMP 12/12/16 06:52 12/13/16 07:30 Discharge Summary Reason For Visit: RESPIRATORY FAILURE,SEPSIS Current Active Problems JULIET (acute kidney injury) (Acute) Electrolyte abnormality (Acute) Pneumonia (Acute) Sepsis (Acute) Trachea displaced (Acute) Procedures: Principal: resp support Other Procedures: iv abx/nebs Hospital Course: admitted for pna/resp distress/iv abx with nebs Condition: Fair - Instructions Referrals: Iwona Prince MD [Primary Care Provider] - Disposition: [facility] - Home Medications Comprehensive Discharge Medication List: Ambulatory Orders Amlodipine Besylate [Norvasc -] 5 mg PO BID 12/07/16 Ascorbic Acid [Vitamin C -] 500 mg PO BID 12/07/16 Aspirin [ASA -] 81 mg PO DAILY 12/07/16 Atorvastatin Ca [Lipitor] 40 mg PO HS 12/07/16 Chlorhexidine Gluconate [Peridex -] 15 ml MM BID 12/07/16 Clindamycin Phosphate 4 mg IJ TID 12/07/16 Enoxaparin [Lovenox -] 40 mg SQ DAILY 12/07/16 Famotidine [Pepcid -] 20 mg PO BID 12/07/16 Furosemide [Lasix -] 40 mg PO DAILY 12/07/16 Insulin (Levemir) [Levemir Vial] 10 units SQ BID 12/07/16 Lactobacillus Acidophilus [Acidophilus Lactobacilli] 2 each PO BID 12/07/16 Lisinopril [Zestril] 40 mg PO DAILY 12/07/16 Metoprolol Tartrate [Lopressor -] 50 mg PO DAILY 12/07/16 Multivitamin [Poly-Vitamin] 1 each PO DAILY 12/07/16 Scopolamine [Transderm-Scop] 1 each TD ASDIR 12/07/16 Spironolactone [Aldactone] 25 mg PO DAILY 12/07/16 Acetaminophen Suppository [Tylenol .Suppository -] 650 mg ND Q6H PRN #0 supp.rect 12/14/16 Albuterol 2.5/Ipratropium 0.5 [Duoneb -] 1 amp NEB QIDR amp 12/14/16 Aspirin [ASA -] 81 mg PO DAILY tab.chew 12/14/16 Atorvastatin Ca [Lipitor] 40 mg PO HS tablet 12/14/16 Collagenase Clostridium Hist. [Santyl -] 1 applic TP DAILY tube 12/14/16 Heparin - 5,000 unit SQ TID vial 12/14/16 Insulin Sliding Scale [Novolog Vial Sliding Scale -] 1 vial SQ ACHS units 12/14 Metoprolol Tartrate [Lopressor -] 37.5 mg PO TID tablet 12/14/16
[2016-12-14] MEDS: ASPIRIN 81 MG CHEWABLE TABLETS PO SCH (11:31)
[2016-12-14] MEDS: COLLAGENASE CLOSTRIDIUM HIST. 30 GRAMS TUBE TP SCH (11:31)
[2016-12-14 13:28] VITALS: BP 145/75; PULSE 77
[2016-12-14 13:54] VITALS: TEMP 98
== END 2016-12-14 14:12 | DRG 871 ==
LOC: JER 09:42 → JERBED 12:15 → JICU 14:54 → J5S 12-12 00:46
PROVIDERS: ADMIT Family Medicine; ATTEND Family Medicine
PROC: 5A1935Z Respiratory Ventilation, Less than 24 Consecutive Hours (ICD-10-PCS; principal; 2016-12-07)
PROC: 3E0H76Z Introduction of Nutritional Substance into Lower GI, Via Natural or Artificial Opening (ICD-10-PCS; 2016-12-08)
DX: A41.52 Sepsis due to Pseudomonas (principal); J18.9 Pneumonia, unspecified organism; J96.21 Acute and chronic respiratory failure with hypoxia; I42.9 Cardiomyopathy, unspecified; N17.9 Acute kidney failure, unspecified; E87.2 Acidosis; G11.9 Hereditary ataxia, unspecified; J95.03 Malfunction of tracheostomy stoma; I25.10 Atherosclerotic heart disease of native coronary artery without angina pectoris; Z95.5 Presence of coronary angioplasty implant and graft; I48.91 Unspecified atrial fibrillation; Z79.01 Long term (current) use of anticoagulants; R76.11 Nonspecific reaction to tuberculin skin test without active tuberculosis; J44.9 Chronic obstructive pulmonary disease, unspecified; Y95 Nosocomial condition; Z93.1 Gastrostomy status; G30.0 Alzheimer's disease with early onset; F02.80 Dementia in other diseases classified elsewhere, unspecified severity, without behavioral disturbance, psychotic disturbance, mood disturbance, and anxiety; Z87.891 Personal history of nicotine dependence; E88.09 Other disorders of plasma-protein metabolism, not elsewhere classified; I25.2 Old myocardial infarction; H02.401 Unspecified ptosis of right eyelid; Y83.8 Other surgical procedures as the cause of abnormal reaction of the patient, or of later complication, without mention of misadventure at the time of the procedure
CPT/HCPCS: 36415; 36600; 71010-TC; 76775-TC; 76856-TC; 80048; 80053; 80076; 81003; 81015; 82550; 82553; 82803; 83605; 83735; 83880; 84100; 84484; 85025; 85027; 85610; 85730; 86850; 86900; 86901; 87040; 87070; 87086; 87184; 87186; 87205; 93005; 93010; 93306-TC; 94640; 97161; 99285-25; G0480; J1644

== ENCOUNTER 2016-12-15 18:33 | Inpatient (IN) | payer OTHER ==
[2016-12-15] MEDS ORDERED: AZTREONAM 1 GM in DEXTROSE 5%-WATER - 50 ML IVPB ONE (18:41)
[2016-12-15] MEDS ORDERED: VANCOMYCIN 1,000 MG in DEXTROSE 5%-WATER - 250 ML IVPB ONE (18:41)
[2016-12-15] MEDS ORDERED: SODIUM CHLORIDE 0.9% 1000 ML INFUS.BAG IV ONE (18:41)
--- NOTE | 2016-12-15 19:22 | PDOC ---
History of Present Illness - General History Source: EMS, Retirement Records, Old Records Exam Limitations: Intubated, Other (Awake but nonverbal) - History of Present Illness Initial Comments: 12/15/16 19:26 The patient is a 86 year old male, with a significant past medical history of HTN, HLD, CAD s/p bare metal stent placement, AFib, right atrial lipoma, latent TB, Alzheimers disease, and DM, who presents to the ED BIBA from [facility] for respiratory distress and fever. The patient was found desaturating at 35% and in respiratory distress by [facility] staff. EMS reports his TMax was approximately 103 F. EMS reports the patient is septic, hypotensive, tachypnea, and increased work with breathing. The patient has a tracheostomy and peg tube in place. Today the patient presents with trach malfunctioning. During transport, patient resaturated to 95%. Per records, the patient recently presented to the ED with similar symptoms. During his visit on 10/15/16-11/02/16, the patient was admitted for sepsis, hypoxia, and respiratory failure. The patients history is limited due to current clinical condition. EMS states patient is nonverbal at baseline, minimally moves, and full code. Allergies: Penicillins Past Surgical History: Tracheostomy and peg tube PCP: Dr. Prince <Sadie Anaya - Last Filed: 12/15/16 19:25> <Jo Smith - Last Filed: 12/15/16 20:05> <Tracy Ward - Last Filed: 12/15/16 21:44> - General Chief Complaint: SIRS, Suspected/Possible Stated Complaint: SEPSIS Time Seen by Provider: 12/15/16 18:42 Past History <Sadie Anaya - Last Filed: 12/15/16 19:25> - Past Medical History Cardiac Disorders: Yes (atrial fibrillation, arthrosclerotic heart diasease) COPD: Yes (intracranial hemorrhage) Dementia: Yes (Alzheimers) Diabetes: Yes HTN: Yes Hypercholesterolemia: Yes - Surgical History Cardiac Surgery: Yes (stent) - Psycho/Social/Smoking Cessation Hx Anxiety: No Suicidal Ideation: No Smoking History: Unknown if ever smoked Have you smoked in the past 12 months: No If you are a former smoker, when did you quit?: 1999 Information on smoking cessation initiated: No Hx Alcohol Use: No Drug/Substance Use Hx: No Substance Use Type: None Hx Substance Use Treatment: No <Jo Smith - Last Filed: 12/15/16 20:05> <Tracy Ward - Last Filed: 12/15/16 21:44> - Past Medical History Allergies/Adverse Reactions: Allergies Allergy/AdvReac Type Severity Reaction Status Date / Time Penicillins Allergy Verified 12/15/16 18:36 Home Medications: Ambulatory Orders Amlodipine Besylate [Norvasc -] 5 mg PO BID 12/07/16 Ascorbic Acid [Vitamin C -] 500 mg PO BID 12/07/16 Aspirin [ASA -] 81 mg PO DAILY 12/07/16 Atorvastatin Ca [Lipitor] 40 mg PO HS 12/07/16 Chlorhexidine Gluconate [Peridex -] 15 ml MM BID 12/07/16 Clindamycin Phosphate 4 mg IJ TID 12/07/16 Enoxaparin [Lovenox -] 40 mg SQ DAILY 12/07/16 Famotidine [Pepcid -] 20 mg PO BID 12/07/16 Furosemide [Lasix -] 40 mg PO DAILY 12/07/16 Insulin (Levemir) [Levemir Vial] 10 units SQ BID 12/07/16 Lactobacillus Acidophilus [Acidophilus Lactobacilli] 2 each PO BID 12/07/16 Lisinopril [Zestril] 40 mg PO DAILY 12/07/16 Metoprolol Tartrate [Lopressor -] 50 mg PO DAILY 12/07/16 Multivitamin [Poly-Vitamin] 1 each PO DAILY 12/07/16 Scopolamine [Transderm-Scop] 1 each TD ASDIR 12/07/16 Spironolactone [Aldactone] 25 mg PO DAILY 12/07/16 Acetaminophen Suppository [Tylenol .Suppository -] 650 mg ID Q6H PRN #0 supp.rect 12/14/16 Albuterol 2.5/Ipratropium 0.5 [Duoneb -] 1 amp NEB QIDR amp 12/14/16 Aspirin [ASA -] 81 mg PO DAILY tab.chew 12/14/16 Atorvastatin Ca [Lipitor] 40 mg PO HS tablet 12/14/16 Collagenase Clostridium Hist. [Santyl -] 1 applic TP DAILY tube 12/14/16 Heparin - 5,000 unit SQ TID vial 12/14/16 Insulin Sliding Scale [Novolog Vial Sliding Scale -] 1 vial SQ ACHS units 12/14 Metoprolol Tartrate [Lopressor -] 37.5 mg PO TID tablet 12/14/16 Review of Systems - Review of Systems Able to Perform ROS?: Yes Comments:: 12/15/16 19:28 GENERAL/CONSTITUTIONAL: Yes: +fever, +minimal movement, +nonverbal at baseline. No chills. HEAD, EYES, EARS, NOSE AND THROAT: No change in vision. No ear pain or discharge. No sore throat. CARDIOVASCULAR: No chest pain. RESPIRATORY: Yes: +desaturation, +respiratory distress, +trach malfunctioning. No cough, wheezing, or hemoptysis. GASTROINTESTINAL: No nausea, vomiting, diarrhea or constipation. GENITOURINARY: No dysuria, frequency, or change in urination. MUSCULOSKELETAL: No joint or muscle swelling or pain. No neck or back pain. SKIN: No rash NEUROLOGIC: No headache, vertigo, loss of consciousness, or change in strength/ sensation. ENDOCRINE: No increased thirst. No abnormal weight change. HEMATOLOGIC/LYMPHATIC: No anemia, easy bleeding, or history of blood clots. ALLERGIC/IMMUNOLOGIC: No hives or skin allergy. <Sadie Anaya - Last Filed: 12/15/16 19:25> *Physical Exam - Vital Signs Last Vital Signs Temp Pulse Resp BP Pulse Ox 120 H 18 108/60 100 12/15/16 18:36 12/15/16 18:59 12/15/16 18:36 12/15/16 18:36 - Physical Exam Comments: 12/15/16 19:29 GENERAL: Awake. Eyes open. Nonverbal HEAD: No signs of trauma EYES: Sclera anicteric, conjunctiva clear ENT: Trach in place. Trach cuff is deflated. Peg in place, no erythema.Auricles normal inspection, hearing grossly normal, nares patent. Moist mucosa NECK: Normal ROM, supple, no lymphadenopathy, JVD, or masses LUNGS: Decreased breath sounds on the left lung angel. No wheezes, and no crackles HEART: Regular rate and rhythm, normal S1 and S2, no murmurs, rubs or gallops ABDOMEN: Soft, nontender, normoactive bowel sounds. No guarding, no rebound. No masses EXTREMITIES: Normal range of motion, no edema. No clubbing or cyanosis. No cords, erythema, or tenderness. DP/PT pulses 2+ and symmetric. Warm and well perfused. NEUROLOGICAL: Patient does not respond to commands. Nonverbal SKIN: Warm, Dry, normal turgor, no rashes or lesions noted. <Sadie Anaya - Last Filed: 12/15/16 19:25> - Vital Signs Last Vital Signs Temp Pulse Resp BP Pulse Ox 120 H 18 108/60 100 12/15/16 18:36 12/15/16 18:59 12/15/16 18:36 12/15/16 18:36 <Jo Smith - Last Filed: 12/15/16 20:05> - Vital Signs Last Vital Signs Temp Pulse Resp BP Pulse Ox 120 H 14 108/60 100 12/15/16 18:36 12/15/16 19:23 12/15/16 18:36 12/15/16 18:36 <Tracy Ward - Last Filed: 12/15/16 21:44> ED Treatment Course - LABORATORY CBC & Chemistry Diagram: 12/15/16 19:24 12/15/16 19:24 - RADIOLOGY Radiology Studies Ordered: Category Date Time Status CHEST X-RAY PORTABLE* [RAD] Stat Radiology 12/15/16 18:39 Ordered <Jo Smith - Last Filed: 12/15/16 20:05> - LABORATORY CBC & Chemistry Diagram: 12/15/16 19:24 12/15/16 19:24 - ADDITIONAL ORDERS Additional order review: Laboratory Results 12/15/16 12/15/16 12/15/16 19:24 19:24 19:24 INR 1.21 H PTT (Actin FS) 28.2 Sodium 138 Potassium 4.5 Chloride 104 Carbon Dioxide 24 Anion Gap 10 BUN 25 H Creatinine 1.0 Creat Clearance w eGFR > 60 Random Glucose 216 H D Lactic Acid Calcium 8.7 Total Bilirubin 0.3 AST 24 D ALT 23 Alkaline Phosphatase 114 Creatine Kinase 49 Troponin I 0.02 D Total Protein 6.8 Albumin 2.1 L Urine Color Urine Appearance Urine pH Urine Protein Urine Glucose (UA) Urine Ketones Urine Blood Urine Nitrite Urine Bilirubin Urine Urobilinogen Ur Leukocyte Esterase Urine RBC Urine WBC Hyaline Casts Urine Mucus Blood Type O POSITIVE Antibody Screen Negative 12/15/16 12/15/16 19:23 19:17 INR PTT (Actin FS) Sodium Potassium Chloride Carbon Dioxide Anion Gap BUN Creatinine Creat Clearance w eGFR Random Glucose Lactic Acid 2.0 Calcium Total Bilirubin AST ALT Alkaline Phosphatase Creatine Kinase Troponin I Total Protein Albumin Urine Color Ltyellow Urine Appearance Slcloudy Urine pH 6.0 D Urine Protein 2+ H Urine Glucose (UA) 2+ H Urine Ketones Negative Urine Blood 2+ H Urine Nitrite Negative Urine Bilirubin 2.0 Urine Urobilinogen Negative Ur Leukocyte Esterase 1+ H Urine RBC 32 Urine WBC 169 Hyaline Casts 29 Urine Mucus Few Blood Type Antibody Screen 12/15/16 19:24 RBC 3.89 L MCV 82.1 MCHC 30.7 L RDW 16.8 H MPV 8.1 Neutrophils % 91.2 H Lymphocytes % 4.3 L D Monocytes % 3.4 L Eosinophils % 0.1 Basophils % 1.0 - Medications Given in the ED: ED Medications Discontinued Medications Generic Name Dose Route Start Last Admin Trade Name Freq PRN Reason Stop Dose Admin Vancomycin HCl 1,000 mg/ 250 mls @ 250 mls/hr 12/15/16 18:41 12/15/16 19:34 Dextrose IVPB 12/15/16 19:40 250 mls/hr ONCE ONE Administration Protocol Aztreonam 1 gm/ Dextrose 50 mls @ 100 mls/hr 12/15/16 18:41 12/15/16 20:54 IVPB 12/15/16 19:10 100 mls/hr ONCE ONE Administration Protocol Sodium Chloride 1,000 ml 12/15/16 18:41 12/15/16 19:34 Normal Saline - IV 12/15/16 18:42 1,000 ml ONCE ONE Administration <Tracy Ward - Last Filed: 12/15/16 21:44> Medical Decision Making - Medical Decision Making 12/15/16 19:30 First call placed to Dr Prince at 18:38. Awaiting call back. First call placed to Dr. Scruggs at 18:44. Awaiting call back. Case discussed with ENT on-call at 19:20. <Sadie Anaya - Last Filed: 12/15/16 19:25> - Medical Decision Making 12/15/16 19:20 86 yo M with h/o recent ICU admission for sepsis in october, prolonged ICU and inbutaction then requiring trach and PEG, here recently in - 12/14 for respiratory distress. here today from rehab with sepsis, hypotension, tachypnea , increased work of breathing and fever. pt is nonverbal at baseline, minimal movement, full code per EMS. on arrival. pt eyes open, trach in place, trach cuff balloon is deflated. decreased breath sound on the left base. heart RRR no m/r/g. abd soft peg in place no erythema. ext wwp. no edema. nuero, pt does not respon to commands, nonverbal. . differential: sepsis, deflated cuff, effusion, uti, recurrent cholecysitits. plan abx iv hydration, icu admission. cxr / pt will require trach exchange. 12/15/16 20:05 pt trach balloon popped. d/w ENT states ok to replace with cuffed Portex trach , as do not have extra long traches in the hospital. d/w dr. evans, pt will be admitted to ICU. d/w pt pcp at nursing facility DR. Prince, will admit pt to ICU. <Jo Smith - Last Filed: 12/15/16 20:05> *DC/Admit/Observation/Transfer - Attestations Scribe Attestion: 12/15/16 19:29 Documentation prepared by Sadie Anaya, acting as medical record assistant for Jo Smith MD. <Sadie Anaya - Last Filed: 12/15/16 19:25> - Discharge Dispostion Admit: Yes <Jo Smith - Last Filed: 12/15/16 20:05> - Discharge Dispostion Admit: Yes <Tracy Ward - Last Filed: 12/15/16 21:44> Diagnosis at time of Disposition: Sepsis associated hypotension, Tracheostomy complication - Discharge Dispostion Condition at time of disposition: Poor - Referrals Referrals: Iwona Pricne MD [Primary Care Provider] -
[2016-12-15] MEDS ORDERED: VANCOMYCIN 1 GRAM (PRE-DOCKED) 250 ML IVPB ONE (19:33)
[2016-12-15 19:44] LABS: EOSINOPHIL 0.1 % (0-4.5); MCH 25.2 pg (25.7-33.7); MCHC 30.7 g/dl (32.0-35.9); MEAN CELL VOLUME 82.1 fl (80-96); MEAN PLT VOLUME 8.1 fl (7.5-11.1); NEUTROPHILS 91.2 % (42.8-82.8); PLATELET COUNT 484 K/MM3 (134-434); RDW 16.8 % (11.9-15.9); WHITE BLOOD COUNT 18.1 K/mm3 (4.0-10.0)
[2016-12-15 19:59] LABS: INR 1.21 (0.82-1.09); PROTHROMBIN TIME (PATIENT) 13.4 SEC (9.98-11.88)
[2016-12-15 20:02] LABS: ACTIVATED PTT 28.2 SECONDS (26.9-34.4)
[2016-12-15 20:07] LABS: URINE APPEARANCE SLCLOUDY; URINE COLOR LTYELLOW; URINE GLUCOSE (UA) 2+ (NEGATIVE); URINE KETONE NEGATIVE (NEGATIVE); URINE NITRITE NEGATIVE (NEGATIVE); URINE UROBILINOGEN NEGATIVE E.U./dl (0.2-1.0)
[2016-12-15 20:08] LABS: URINE BLOOD 2+ (NEGATIVE); URINE LEUK ESTERASE 1+ (NEGATIVE); URINE PROTEIN 2+ (NEGATIVE)
[2016-12-15 20:09] LABS: URINE HYALINE CAST 29 /lpf; URINE MUCUS FEW; URINE RBC 32 /hpf (0-3); URINE WBC 169 /hpf (3-5)
[2016-12-15 20:15] LABS: ALBUMIN 2.1 g/dl (3.4-5.0); ANION GAP 10 (8-16); BILIRUBIN,TOTAL 0.3 mg/dL (0.2-1.0); CALCIUM 8.7 mg/dL (8.5-10.1); CO2 24 mmol/L (21-32); COCKROFT - GAULT 47.62; GLUCOSE,RANDOM 216 mg/dL (74-106); SGOT/AST 24 U/L (15-37); SGPT/ALT 23 U/L (12-78); TOT PROT 6.8 g/dl (6.4-8.2)
[2016-12-15 20:18] LABS: ALK PHOS 114 U/L (45-117); TROPONIN I 0.02 ng/ml (0.00-0.05)
[2016-12-15] MEDS ORDERED: DEXTROSE 5%-0.45% SALINE 1,000 ML IV SCH (22:00)
[2016-12-15 22:47] VITALS: BMI 20.9
--- NOTE | 2016-12-15 23:01 | CONSULT ---
Consult Consult Specialty:: PULMONARY / CRITICAL CARE Referred by:: Dr Prince Reason for Consultation:: sepsis, respiratory failure - History of Present Illness Chief Complaint: fever, hypoxia History of Present Illness: In brief, an 86 y/o man chronically critically ill with CAD (BMS), HTN, AF, DM, Dementia, Latent TB, chronic respiratory failure s/p trach. He is frequently hospitalized with pulmonary infections, he was here recently with respiratory failure. He is on 50% TC at baseline. On his prior admission it was noticed that his trach cuff was non-functional. 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 He presented to the ED today with fevers and hypoxia (he allegedly had a SpO2 of 35 %). En-route to the hospital he was assisted with a BVM and connected to a vent in the ED, but he is unable to be fully ventilated because he still has a non- functioning trach cuff. He was given Vanc and Aztreonam and admitted to the ICU. In the ICU we disconnected him from mechanical ventilation and placed him on 50 % TC (his baseline), he is breathing spontaneously and appears to have an adequate minute ventilation. He SpO2 is 100%. 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: Dementia Cardio/Vascular: Yes: CAD, HTN, Hyperlipdemia Pulmonary: Yes: O2 Dependent, Previously Intubated, Other (trache) Hepatobiliary: Yes: Cholecystitis - Alcohol/Substance Use Hx Alcohol Use: No - Smoking History Smoking history: Unknown if ever smoked Have you smoked in the past 12 months: No If you are a former smoker, when did you quit?: 1999 - Social History Usual Living Arrangement: Skilled Nursing ADL: Support Services Home Medications - Allergies Allergies/Adverse Reactions: Allergies Allergy/AdvReac Type Severity Reaction Status Date / Time Penicillins Allergy Verified 12/15/16 18:36 - Home Medications Home Medications: Ambulatory Orders Amlodipine Besylate [Norvasc -] 5 mg PO BID 12/07/16 Ascorbic Acid [Vitamin C -] 500 mg PO BID 12/07/16 Aspirin [ASA -] 81 mg PO DAILY 12/07/16 Atorvastatin Ca [Lipitor] 40 mg PO HS 12/07/16 Chlorhexidine Gluconate [Peridex -] 15 ml MM BID 12/07/16 Clindamycin Phosphate 4 mg IJ TID 12/07/16 Enoxaparin [Lovenox -] 40 mg SQ DAILY 12/07/16 Famotidine [Pepcid -] 20 mg PO BID 12/07/16 Furosemide [Lasix -] 40 mg PO DAILY 12/07/16 Insulin (Levemir) [Levemir Vial] 10 units SQ BID 12/07/16 Lactobacillus Acidophilus [Acidophilus Lactobacilli] 2 each PO BID 12/07/16 Lisinopril [Zestril] 40 mg PO DAILY 12/07/16 Metoprolol Tartrate [Lopressor -] 50 mg PO DAILY 12/07/16 Multivitamin [Poly-Vitamin] 1 each PO DAILY 12/07/16 Scopolamine [Transderm-Scop] 1 each TD ASDIR 12/07/16 Spironolactone [Aldactone] 25 mg PO DAILY 12/07/16 Acetaminophen Suppository [Tylenol .Suppository -] 650 mg IA Q6H PRN #0 supp.rect 12/14/16 Albuterol 2.5/Ipratropium 0.5 [Duoneb -] 1 amp NEB QIDR amp 12/14/16 Aspirin [ASA -] 81 mg PO DAILY tab.chew 12/14/16 Atorvastatin Ca [Lipitor] 40 mg PO HS tablet 12/14/16 Collagenase Clostridium Hist. [Santyl -] 1 applic TP DAILY tube 12/14/16 Heparin - 5,000 unit SQ TID vial 12/14/16 Insulin Sliding Scale [Novolog Vial Sliding Scale -] 1 vial SQ ACHS units 12/14 Metoprolol Tartrate [Lopressor -] 37.5 mg PO TID tablet 12/14/16 Review of Systems Unable to obtain ROS, reason: unresponsive Physical Exam Vital Signs: Vital Signs Temperature Pulse Rate 91 H 12/15/16 22:28 Respiratory Rate 14 12/15/16 19:23 Blood Pressure 108/60 12/15/16 18:36 O2 Sat by Pulse Oximetry (%) 99 12/15/16 22:28 Constitutional: Yes: Cachectic Eyes: Yes: WNL HENT: Yes: WNL, Other Neck: Yes: Other (trach in palce) Cardiovascular: Yes: Pulse Irregular, S1 Respiratory: Yes: Diminished Gastrointestinal: Yes: Soft. No: Tenderness Extremities: Yes: WNL Edema: No Peripheral Pulses WNL: Yes Integumentary: Yes: WNL Neurological: Yes: Other (awake but unable to follow commands (baseline)) Imaging - Results Chest X-ray: Image Reviewed EKG: Pending Problem List - Problems (1) Tracheostomy complication Code(s): J95.00 - UNSPECIFIED TRACHEOSTOMY COMPLICATION (2) Pneumonia Code(s): J18.9 - PNEUMONIA, UNSPECIFIED ORGANISM Qualifiers: Pneumonia type: due to Pseudomonas Laterality: bilateral Lung location: lower lobe of lung Qualified Code(s): J15.1 - Pneumonia due to Pseudomonas (3) Sepsis Code(s): A41.9 - SEPSIS, UNSPECIFIED ORGANISM Qualifiers: Sepsis type: Pseudomonas Qualified Code(s): A41.52 - Sepsis due to Pseudomonas (4) UTI (urinary tract infection) Code(s): N39.0 - URINARY TRACT INFECTION, SITE NOT SPECIFIED Assessment/Plan Sepsis - pulmonary and urinary source Tracheomalacia Chronic respiratory failure CAD AF HTN Dementia -Continue TC Oxygen and check ABG to ensure adequate ventilation -ENT consult to change trach - he needs to have a functioning trach in case he needs positive pressure ventilation and should not leave the hospital without it -ABX - Vanc/Aztreonam for now - follow up cultures, if growing PSA in sputum will need expanded coverage as it is MDR -ASA -IVF -FS/insulin -Restart home medications as indicated -DVT/GI PPx Transfer to the floor in the morning if stable overnight Thank you for this interesting consult He Zhang Pulm/Critical Care [employer]
[2016-12-15 23:34] LABS: ARTERIAL BLD GAS O2 SATURATION 91.9 % (90-98.9); ARTERIAL BLOOD GAS BASE EXCESS -0.8 meq/l (-2-2); ARTERIAL BLOOD GAS HCO3 22.2 meq/L (22-26); ARTERIAL BLOOD GAS PO2 66.3 mmHg (68-100); ARTERIAL BLOOD GAS pH 7.44 (7.35-7.45)
[2016-12-15 23:36] LABS: ALLENS TEST POSITIVE; ART PUNCT SITE RIGHT RADIAL; LPM/O2% 50%; PT. ON O2? YES
[2016-12-15 23:37] LABS: TYPE OF O2 trach coller mask
[2016-12-16] MEDS ORDERED: SODIUM CHLORIDE 1,000 ML IV SCH ×2 (00:45→06:45)
[2016-12-16] MEDS: INSULIN SLIDING SCALE (NOVOLOG) 1 VIAL SQ SCH ×4 (01:00→17:02)
[2016-12-16] MEDS ORDERED: AZTREONAM 1 GM in DEXTROSE 5%-WATER - 50 ML IVPB SCH ×2 (02:00→10:00)
[2016-12-16] MEDS ORDERED: HEPARIN NA (PORCINE) 5,000 UNITS/ML 1ML VIAL SQ SCH (06:00)
[2016-12-16 06:30] LABS: BASOPHIL 0.9 % (0-2.0); EOSINOPHIL 1.1 % (0-4.5); MCH 25.9 pg (25.7-33.7); MCHC 31.6 g/dl (32.0-35.9); MEAN CELL VOLUME 82.1 fl (80-96); MEAN PLT VOLUME 8.1 fl (7.5-11.1); NEUTROPHILS 84.5 % (42.8-82.8); PLATELET COUNT 438 K/MM3 (134-434); RDW 17.2 % (11.9-15.9); WHITE BLOOD COUNT 16.1 K/mm3 (4.0-10.0)
[2016-12-16 06:53] LABS: CALCIUM 8.4 mg/dL (8.5-10.1); MAGNESIUM 1.9 mg/dL (1.8-2.4)
[2016-12-16 06:54] LABS: COCKROFT - GAULT 77.3; CREATININE 0.7 mg/dL (0.7-1.3); PHOSPHOROUS 2.7 mg/dL (2.5-4.9)
[2016-12-16 07:35] LABS: ARTERIAL BLOOD GAS HCO3 23.7 meq/L (22-26); ARTERIAL BLOOD GAS PO2 99.9 mmHg (68-100); ARTERIAL BLOOD GAS pH 7.43 (7.35-7.45)
[2016-12-16 07:36] LABS: ALLENS TEST POSITIVE
[2016-12-16 07:37] LABS: ART PUNCT SITE RIGHT RADIAL; LPM/O2% 70%; PT. ON O2? YES; TYPE OF O2 T/C
[2016-12-16] MEDS: ASPIRIN 81 MG CHEWABLE TABLETS PO SCH (09:49)
[2016-12-16] MEDS: PANTOPRAZOLE SOD 40 MG SUSPENSION PACKET NGT SCH (09:49)
[2016-12-16] MEDS ORDERED: ASPIRIN 81 MG CHEWABLE TABLETS PO SCH (10:00)
[2016-12-16] MEDS ORDERED: VANCOMYCIN 1 GRAM (PRE-DOCKED) 1,000 MG/250 ML BAG IVPB SCH ×3 (10:00→22:00)
[2016-12-16] MEDS ORDERED: PANTOPRAZOLE SOD 40 MG SUSPENSION PACKET NGT SCH (10:00)
--- NOTE | 2016-12-16 10:31 | PN ---
Progress Note (short form) - Note Progress Note: PULMONARY/CCM Pt seen and examined in the ICU. No fevers recorded, blood pressure has been stable. Last Vital Signs Temp Pulse Resp BP Pulse Ox 99.4 F 89 21 120/56 99 12/16/16 06:00 12/16/16 08:00 12/16/16 08:00 12/16/16 08:00 12/16/16 08:30 Intake & Output 12/13/16 12/14/16 12/15/16 12/16/16 23:59 23:59 23:59 23:59 Intake Total 75 525 Output Total 40 Balance 75 485 Weight 159 lb 1 oz 159 lb 1 oz Gen: breathing nonlabored Heart: RRR Lung: scattered rhonchi Abd: soft, nontender Ext: no edema CBC, BMP 12/16/16 05:20 12/16/16 05:20 Active Medications Aspirin (Asa -) 81 mg PO DAILY [facility] Last Admin: 12/16/16 09:49 Dose: 81 mg Heparin Sodium (Porcine) (Heparin -) 5,000 unit SQ TID KARLOS Sodium Chloride (Normal Saline -) 1,000 mls @ 75 mls/hr IV ASDIR [facility] Last Admin: 12/16/16 08:01 Dose: Not Given Insulin Aspart (Novolog Vial Sliding Scale -) 1 vial SQ Q6HPO [facility] PRN Reason: Protocol Pantoprazole Sodium (Protonix Packets For Oral Suspension -) 40 mg NGT DAILY [facility] Last Admin: 12/16/16 09:49 Dose: 40 mg Vancomycin HCl (Vancomycin (Pre-Docked)) 1,000 mg IVPB BID [facility] PRN Reason: Protocol A/P Acute on Chronic Hypoxic Respiratory Failure UTI r/o Pneumonia Sepsis Tracheomalacia HTN CAD DM Atrial Fibrillation Dementia - grew resistant pseudomonas last admission, will place back for now and consult ID - f/u cultures - tolerating trach collar - O2 to keep SpO2 >90% - aspiration precautions - IVF - enteral feeds - DVT prophylaxis - can monitor on floor
[2016-12-16] MEDS ORDERED: VANCOMYCIN 1,000 MG in DEXTROSE 5%-WATER - 250 ML IVPB ONE (10:41)
[2016-12-16] MEDS ORDERED: cefTAZidime PENTAHYDRATE 1 GM/50ML PRE-DOCKED (RESTRICTED TO ID) IVPB SCH (10:45)
[2016-12-16] MEDS ORDERED: CEFTAZIDIME PENTAHYDRATE IVPB ONE (11:30)
[2016-12-16] MEDS ORDERED: SODIUM CHLORIDE IVPB ONE (11:30)
[2016-12-16] MEDS ORDERED: HEPARIN NA (PORCINE) 5,000 UNITS/ML 1ML VIAL ONE (12:50)
--- NOTE | 2016-12-16 13:40 | PN ---
Progress Note (short form) - Note Progress Note: ID followup note Just discharged back to [place] on Saturday after 7 day course of antibiotics fortaz/ diflucan for pneumonia daughter at bedside was with him for four hours yesterday- he was doing well, no desats quite alert moving his right hand spontaneously reports getting a phone call around six that he was hypoxic and had a fever! no fevers since admission Vital Signs Period Temp Pulse Resp BP Sys/Machado Pulse Ox Last 24 Hr 98.2 F-99.4 F 74-120 14-32 108-133/56-76 95-100 trach to vent cor-rrr lungs decreased bs at bases abd soft, +GT +ruq biliary drain ext no edema CBC, BMP 12/16/16 05:20 12/16/16 05:20 cxray with increased LLL infiltrate cultures pending a/p chronic resp failure worsening LLL infiltrate pen allergy given vanco/azactam in ED would agree with vanco/fortaz f/u cultures d/w daughter at bedside Problem List - Problems (1) Pneumonia Code(s): J18.9 - PNEUMONIA, UNSPECIFIED ORGANISM Qualifiers: Pneumonia type: due to Pseudomonas Laterality: left Lung location: lower lobe of lung Qualified Code(s): J15.1 - Pneumonia due to Pseudomonas (2) Penicillin allergy Code(s): Z88.0 - ALLERGY STATUS TO PENICILLIN
[2016-12-16] MEDS: HEPARIN NA (PORCINE) 5,000 UNITS/ML 1ML VIAL SQ SCH ×2 (14:05→21:46)
[2016-12-16] MEDS: SCOPOLAMINE HYDROBROMIDE 1 PATCH PATCH.TD72 TD SCH (14:16)
--- NOTE | 2016-12-16 15:37 | EKG ---
Test Reason : Blood Pressure : / mmHG Vent. Rate : 116 BPM Atrial Rate : 116 BPM P-R Int : 264 ms QRS Dur : 096 ms QT Int : 402 ms P-R-T Axes : 000 -59 075 degrees QTc Int : 558 ms SINUS TACHYCARDIA WITH 1ST DEGREE A-V BLOCK WITH FUSION COMPLEXES LEFT AXIS DEVIATION ANTEROLATERAL INFARCT , AGE UNDETERMINED PROLONGED QT ABNORMAL ECG WHEN COMPARED WITH ECG OF 07-DEC-2016 10:41, SIGNIFICANT CHANGES HAVE OCCURRED NOTE ABSENCE OF RBBB AND PRESNCE OF PREMATURE VENTRICULAR COMPLEXES AND ANTEROSEPTAL INFARCT CLINICAL CORRELATION IS RECOMMENDED Confirmed by ALEXEY LEAL MD ([id number]) on 12/16/2016 3:37:24 PM Referred By: Confirmed By:ALEXEY LEAL MD
[2016-12-16] MEDS: SODIUM CHLORIDE IVPB SCH (17:01)
[2016-12-16] MEDS: CEFTAZIDIME PENTAHYDRATE IVPB SCH (17:01)
[2016-12-16] MEDS: COLLAGENASE CLOSTRIDIUM HIST. 30 GRAMS TUBE TP SCH (17:01)
--- NOTE | 2016-12-16 17:57 | PN ---
Progress Note, Physician - Current Medication List Current Medications: Active Medications Aspirin (Asa -) 81 mg PO DAILY [facility] Last Admin: 12/16/16 09:49 Dose: 81 mg Collagenase (Santyl -) 1 applic TP DAILY [facility] Last Admin: 12/16/16 17:01 Dose: 1 applic Heparin Sodium (Porcine) (Heparin -) 5,000 unit SQ TID [facility] Last Admin: 12/16/16 14:05 Dose: 5,000 unit Ceftazidime 2 gm/ Sodium (Chloride) 100 mls @ 200 mls/hr IVPB Q8H-IV [facility] Last Admin: 12/16/16 17:01 Dose: 200 mls/hr Insulin Aspart (Novolog Vial Sliding Scale -) 1 vial SQ Q6HPO [facility] PRN Reason: Protocol Last Admin: 12/16/16 17:02 Dose: 4 units Pantoprazole Sodium (Protonix Packets For Oral Suspension -) 40 mg NGT DAILY [facility] Last Admin: 12/16/16 09:49 Dose: 40 mg Scopolamine HBr (Transderm-Scop -) 1 patch TD Q3D@1000 [facility] Last Admin: 12/16/16 14:16 Dose: 1 patch Vancomycin HCl (Vancomycin (Pre-Docked)) 1,000 mg IVPB BID [facility] - Objective Vital Signs: Vital Signs Temperature 98.1 F 12/16/16 14:00 Pulse Rate 86 12/16/16 16:36 Respiratory Rate 24 12/16/16 16:03 Blood Pressure 130/67 12/16/16 16:03 O2 Sat by Pulse Oximetry (%) 95 12/16/16 16:36 Labs: CBC, BMP 12/16/16 05:20 12/16/16 05:20 INR, PTT INR 1.21 (0.82-1.09) H 12/15/16 19:24
--- NOTE | 2016-12-16 18:03 | HP ---
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 Cardiovascular: Yes: CAD, HTN, Hyperlipdemia Pulmonary: Yes: O2 Dependent, Previously Intubated, Other (trache) Hepatobiliary: Yes: Cholecystitis - Advance Directives Advance Directives: Yes: MOLST - Smoking History Smoking history: Unknown if ever smoked Have you smoked in the past 12 months: No If you are a former smoker, when did you quit?: 1999 - Alcohol/Substance Use Hx Alcohol Use: No - Social History ADL: Support Services Home Medications - Allergies Allergies/Adverse Reactions: Allergies Allergy/AdvReac Type Severity Reaction Status Date / Time Penicillins Allergy Verified 12/15/16 18:36 - Home Medications Home Medications: Ambulatory Orders Amlodipine Besylate [Norvasc -] 5 mg PO BID 12/07/16 Ascorbic Acid [Vitamin C -] 500 mg PO BID 12/07/16 Aspirin [ASA -] 81 mg PO DAILY 12/07/16 Atorvastatin Ca [Lipitor] 40 mg PO HS 12/07/16 Chlorhexidine Gluconate [Peridex -] 15 ml MM BID 12/07/16 Clindamycin Phosphate 4 mg IJ TID 12/07/16 Enoxaparin [Lovenox -] 40 mg SQ DAILY 12/07/16 Famotidine [Pepcid -] 20 mg PO BID 12/07/16 Furosemide [Lasix -] 40 mg PO DAILY 12/07/16 Insulin (Levemir) [Levemir Vial] 10 units SQ BID 12/07/16 Lactobacillus Acidophilus [Acidophilus Lactobacilli] 2 each PO BID 12/07/16 Lisinopril [Zestril] 40 mg PO DAILY 12/07/16 Metoprolol Tartrate [Lopressor -] 50 mg PO DAILY 12/07/16 Multivitamin [Poly-Vitamin] 1 each PO DAILY 12/07/16 Scopolamine [Transderm-Scop] 1 each TD ASDIR 12/07/16 Spironolactone [Aldactone] 25 mg PO DAILY 12/07/16 Acetaminophen Suppository [Tylenol .Suppository -] 650 mg MA Q6H PRN #0 supp.rect 12/14/16 Albuterol 2.5/Ipratropium 0.5 [Duoneb -] 1 amp NEB QIDR amp 12/14/16 Aspirin [ASA -] 81 mg PO DAILY tab.chew 12/14/16 Atorvastatin Ca [Lipitor] 40 mg PO HS tablet 12/14/16 Collagenase Clostridium Hist. [Santyl -] 1 applic TP DAILY tube 12/14/16 Heparin - 5,000 unit SQ TID vial 12/14/16 Insulin Sliding Scale [Novolog Vial Sliding Scale -] 1 vial SQ ACHS units 12/14 Metoprolol Tartrate [Lopressor -] 37.5 mg PO TID tablet 12/14/16 Physical Examination Vital Signs: Vital Signs Temperature 98.4 F 12/16/16 18:00 Pulse Rate 88 12/16/16 18:00 Respiratory Rate 28 H 12/16/16 18:00 Blood Pressure 125/64 12/16/16 18:00 O2 Sat by Pulse Oximetry (%) 95 12/16/16 16:36 Labs: CBC, BMP 12/16/16 05:20 12/16/16 05:20
[2016-12-16] MEDS: VANCOMYCIN 1 GRAM (PRE-DOCKED) 1,000 MG/250 ML BAG IVPB SCH (21:46)
[2016-12-17] MEDS: INSULIN SLIDING SCALE (NOVOLOG) 1 VIAL SQ SCH ×5 (00:52→23:59)
[2016-12-17] MEDS: SODIUM CHLORIDE IVPB SCH ×3 (01:01→19:16)
[2016-12-17] MEDS: CEFTAZIDIME PENTAHYDRATE IVPB SCH ×3 (01:01→19:16)
[2016-12-17] MEDS: HEPARIN NA (PORCINE) 5,000 UNITS/ML 1ML VIAL SQ SCH ×3 (06:03→21:56)
[2016-12-17 08:00] LABS: BASOPHIL 1.1 % (0-2.0); EOSINOPHIL 5.6 % (0-4.5); MCH 26.3 pg (25.7-33.7); MCHC 31.9 g/dl (32.0-35.9); MEAN CELL VOLUME 82.5 fl (80-96); NEUTROPHILS 75.5 % (42.8-82.8); PLATELET COUNT 395 K/MM3 (134-434); RDW 16.8 % (11.9-15.9); WHITE BLOOD COUNT 8.7 K/mm3 (4.0-10.0)
[2016-12-17 08:29] LABS: ALBUMIN 1.9 g/dl (3.4-5.0); ANION GAP 11 (8-16); CALCIUM 8.9 mg/dL (8.5-10.1); CO2 25 mmol/L (21-32); GLUCOSE,RANDOM 124 mg/dL (74-106); MAGNESIUM 1.8 mg/dL (1.8-2.4)
[2016-12-17 08:32] LABS: ALK PHOS 109 U/L (45-117); BILIRUBIN,TOTAL 0.4 mg/dL (0.2-1.0); COCKROFT - GAULT 82.47; CREATININE 0.7 mg/dL (0.7-1.3); PHOSPHOROUS 2.7 mg/dL (2.5-4.9); SGOT/AST 23 U/L (15-37); SGPT/ALT 19 U/L (12-78); TOT PROT 6.4 g/dl (6.4-8.2)
[2016-12-17] MEDS: PANTOPRAZOLE SOD 40 MG SUSPENSION PACKET NGT SCH (09:44)
[2016-12-17] MEDS: ASPIRIN 81 MG CHEWABLE TABLETS PO SCH (09:44)
[2016-12-17] MEDS: VANCOMYCIN 1 GRAM (PRE-DOCKED) 1,000 MG/250 ML BAG IVPB SCH ×2 (11:25→21:56)
--- NOTE | 2016-12-17 12:17 | PN ---
Progress Note, Physician History of Present Illness: PULMONARY NO DISTRESS,-TACHYPNEA,-CONGESTION, BP STABLE,NON-VERBAL - Current Medication List Current Medications: Active Medications Aspirin (Asa -) 81 mg PO DAILY [facility] Last Admin: 12/17/16 09:44 Dose: 81 mg Collagenase (Santyl -) 1 applic TP DAILY [facility] Last Admin: 12/16/16 17:01 Dose: 1 applic Heparin Sodium (Porcine) (Heparin -) 5,000 unit SQ TID [facility] Last Admin: 12/17/16 06:03 Dose: 5,000 unit Ceftazidime 2 gm/ Sodium (Chloride) 100 mls @ 200 mls/hr IVPB Q8H-IV [facility] Last Admin: 12/17/16 09:44 Dose: 200 mls/hr Insulin Aspart (Novolog Vial Sliding Scale -) 1 vial SQ Q6HPO [facility] PRN Reason: Protocol Last Admin: 12/17/16 11:31 Dose: 2 units Pantoprazole Sodium (Protonix Packets For Oral Suspension -) 40 mg NGT DAILY [facility] Last Admin: 12/17/16 09:44 Dose: 40 mg Scopolamine HBr (Transderm-Scop -) 1 patch TD Q3D@1000 [facility] Last Admin: 12/16/16 14:16 Dose: 1 patch Vancomycin HCl (Vancomycin (Pre-Docked)) 1,000 mg IVPB BID [facility] Last Admin: 12/17/16 11:25 Dose: 1,000 mg - Objective Vital Signs: Vital Signs Temperature 98.2 F 12/17/16 06:00 Pulse Rate 90 12/17/16 06:00 Respiratory Rate 22 12/17/16 06:00 Blood Pressure 148/74 12/17/16 06:00 O2 Sat by Pulse Oximetry (%) 97 12/17/16 06:00 Constitutional: Yes: Calm, Thin Eyes: Yes: WNL HENT: Yes: WNL Neck: Yes: WNL, Supple (TRACH) Cardiovascular: Yes: Pulse Irregular, S1, S2 Respiratory: Yes: Diminished Gastrointestinal: Yes: Normal Bowel Sounds, Soft Extremities: Yes: WNL Edema: No Labs: CBC, BMP 12/17/16 06:05 12/17/16 06:05 INR, PTT INR 1.21 (0.82-1.09) H 12/15/16 19:24 - ....Imaging Chest X-ray: Report Reviewed, Image Reviewed (PARTIALLY OPACIFIED LEFT LUNG,+ ATELECTASIS,+INFILTRATE) Problem List - Problems (1) Cerebrovascular small vessel disease Code(s): I67.9 - CEREBROVASCULAR DISEASE, UNSPECIFIED (2) Cholecystitis Code(s): K81.9 - CHOLECYSTITIS, UNSPECIFIED (3) Pneumonia Code(s): J18.9 - PNEUMONIA, UNSPECIFIED ORGANISM Qualifiers: Pneumonia type: due to Pseudomonas Laterality: left Lung location: lower lobe of lung Qualified Code(s): J15.1 - Pneumonia due to Pseudomonas (4) Respiratory failure Code(s): J96.90 - RESPIRATORY FAILURE, UNSP, UNSP W HYPOXIA OR HYPERCAPNIA Qualifiers: Chronicity: acute Respiratory failure complication: hypoxia Qualified Code(s): J96.01 - Acute respiratory failure with hypoxia (5) Acute and chronic respiratory failure Code(s): J96.20 - ACUTE AND CHR RESP FAILURE, UNSP W HYPOXIA OR HYPERCAPNIA (6) Afib Code(s): I48.91 - UNSPECIFIED ATRIAL FIBRILLATION (7) Acute on chronic respiratory failure with hypoxia Code(s): J96.21 - ACUTE AND CHRONIC RESPIRATORY FAILURE WITH HYPOXIA Assessment/Plan A/P Acute on Chronic Hypoxic Respiratory Failure UTI r/o Pneumonia Sepsis Tracheomalacia HTN CAD DM Atrial Fibrillation Dementia - antibiotics - tolerating trach collar - O2 to keep SpO2 >90% - aspiration precautions - IVF - enteral feeds - DVT prophylaxis - tracheal suctioning - f/u chest x-ray DR UNDERWOOD
[2016-12-17] MEDS ORDERED: ALBUTEROL SO4 2.5/IPRATROPIUM 0.5 INH SOL 3 ML VIAL.NEB. NEB PRN (12:26)
[2016-12-17] MEDS: COLLAGENASE CLOSTRIDIUM HIST. 30 GRAMS TUBE TP SCH (14:00)
[2016-12-17] MEDS: ALBUTEROL SO4 2.5/IPRATROPIUM 0.5 INH SOL 3 ML VIAL.NEB. NEB SCH ×2 (14:20→23:15)
--- NOTE | 2016-12-17 15:53 | PN ---
Progress Note, Physician History of Present Illness: Poorly responsive Afebrile WBC improved Sputum NLF - Current Medication List Current Medications: Active Medications Albuterol/Ipratropium (Duoneb -) 1 amp NEB Q4H PRN PRN Reason: SHORTNESS OF BREATH Albuterol/Ipratropium (Duoneb -) 1 amp NEB TIDR [facility] Last Admin: 12/17/16 14:20 Dose: 1 amp Aspirin (Asa -) 81 mg PO DAILY [facility] Last Admin: 12/17/16 09:44 Dose: 81 mg Collagenase (Santyl -) 1 applic TP DAILY [facility] Last Admin: 12/16/16 17:01 Dose: 1 applic Heparin Sodium (Porcine) (Heparin -) 5,000 unit SQ TID [facility] Last Admin: 12/17/16 06:03 Dose: 5,000 unit Ceftazidime 2 gm/ Sodium (Chloride) 100 mls @ 200 mls/hr IVPB Q8H-IV [facility] Last Admin: 12/17/16 09:44 Dose: 200 mls/hr Insulin Aspart (Novolog Vial Sliding Scale -) 1 vial SQ Q6HPO [facility] PRN Reason: Protocol Last Admin: 12/17/16 11:31 Dose: 2 units Pantoprazole Sodium (Protonix Packets For Oral Suspension -) 40 mg NGT DAILY [facility] Last Admin: 12/17/16 09:44 Dose: 40 mg Scopolamine HBr (Transderm-Scop -) 1 patch TD Q3D@1000 [facility] Last Admin: 12/16/16 14:16 Dose: 1 patch Vancomycin HCl (Vancomycin (Pre-Docked)) 1,000 mg IVPB BID [facility] Last Admin: 12/17/16 11:25 Dose: 1,000 mg - Objective Vital Signs: Vital Signs Temperature 97.6 F 12/17/16 10:00 Pulse Rate 84 12/17/16 10:10 Respiratory Rate 22 12/17/16 10:00 Blood Pressure 141/69 12/17/16 10:00 O2 Sat by Pulse Oximetry (%) 97 12/17/16 10:10 Constitutional: Yes: No Distress Eyes: Yes: Conjunctiva Clear Cardiovascular: Yes: Regular Rate and Rhythm, S1, S2 Respiratory: Yes: Diminished Gastrointestinal: Yes: Normal Bowel Sounds. No: Tenderness Edema: Yes Labs: CBC, BMP 12/17/16 06:05 12/17/16 06:05 INR, PTT INR 1.21 (0.82-1.09) H 12/15/16 19:24 Assessment/Plan Resp failure LLL pneumonia PCN allergy Await c/s Continue vanco/ ceftazidime
[2016-12-17] MEDS ORDERED: PT OWN MED DRAWER 7, Y5N ONE (18:33)
--- NOTE | 2016-12-17 23:16 | PN ---
Progress Note, Physician - Current Medication List Current Medications: Active Medications Albuterol/Ipratropium (Duoneb -) 1 amp NEB Q4H PRN PRN Reason: SHORTNESS OF BREATH Albuterol/Ipratropium (Duoneb -) 1 amp NEB TIDR [facility] Last Admin: 12/17/16 14:20 Dose: 1 amp Aspirin (Asa -) 81 mg PO DAILY [facility] Last Admin: 12/17/16 09:44 Dose: 81 mg Collagenase (Santyl -) 1 applic TP DAILY [facility] Last Admin: 12/17/16 14:00 Dose: 1 applic Heparin Sodium (Porcine) (Heparin -) 5,000 unit SQ TID [facility] Last Admin: 12/17/16 21:56 Dose: 5,000 unit Ceftazidime 2 gm/ Sodium (Chloride) 100 mls @ 200 mls/hr IVPB Q8H-IV [facility] Last Admin: 12/17/16 19:16 Dose: 200 mls/hr Insulin Aspart (Novolog Vial Sliding Scale -) 1 vial SQ Q6HPO [facility] PRN Reason: Protocol Last Admin: 12/17/16 17:34 Dose: 4 units Pantoprazole Sodium (Protonix Packets For Oral Suspension -) 40 mg NGT DAILY [facility] Last Admin: 12/17/16 09:44 Dose: 40 mg Scopolamine HBr (Transderm-Scop -) 1 patch TD Q3D@1000 [facility] Last Admin: 12/16/16 14:16 Dose: 1 patch Vancomycin HCl (Vancomycin (Pre-Docked)) 1,000 mg IVPB BID [facility] Last Admin: 12/17/16 21:56 Dose: 1,000 mg - Objective Vital Signs: Vital Signs Temperature 99 F 12/17/16 21:54 Pulse Rate 82 12/17/16 21:54 Respiratory Rate 20 12/17/16 21:54 Blood Pressure 143/75 12/17/16 21:54 O2 Sat by Pulse Oximetry (%) 97 12/17/16 10:10 Labs: CBC, BMP 12/17/16 06:05 12/17/16 06:05 INR, PTT INR 1.21 (0.82-1.09) H 12/15/16 19:24
[2016-12-18] MEDS: SODIUM CHLORIDE IVPB SCH ×3 (01:35→18:36)
[2016-12-18] MEDS: CEFTAZIDIME PENTAHYDRATE IVPB SCH ×3 (01:35→18:36)
[2016-12-18] MEDS: HEPARIN NA (PORCINE) 5,000 UNITS/ML 1ML VIAL SQ SCH ×3 (05:59→22:38)
[2016-12-18] MEDS: INSULIN SLIDING SCALE (NOVOLOG) 1 VIAL SQ SCH ×3 (06:00→23:00)
[2016-12-18] MEDS: ALBUTEROL SO4 2.5/IPRATROPIUM 0.5 INH SOL 3 ML VIAL.NEB. NEB SCH ×3 (06:40→21:56)
[2016-12-18] MEDS: ASPIRIN 81 MG CHEWABLE TABLETS PO SCH (11:29)
[2016-12-18] MEDS: VANCOMYCIN 1 GRAM (PRE-DOCKED) 1,000 MG/250 ML BAG IVPB SCH ×2 (11:29→22:38)
[2016-12-18] MEDS: COLLAGENASE CLOSTRIDIUM HIST. 30 GRAMS TUBE TP SCH (11:29)
[2016-12-18] MEDS: PANTOPRAZOLE SOD 40 MG SUSPENSION PACKET NGT SCH (11:29)
--- NOTE | 2016-12-18 11:32 | PN ---
Progress Note, Physician History of Present Illness: PULMONARY AWAKE,NON-VERBAL,NAD - Current Medication List Current Medications: Active Medications Albuterol/Ipratropium (Duoneb -) 1 amp NEB Q4H PRN PRN Reason: SHORTNESS OF BREATH Albuterol/Ipratropium (Duoneb -) 1 amp NEB TIDR [facility] Last Admin: 12/18/16 06:40 Dose: 1 amp Aspirin (Asa -) 81 mg PO DAILY [facility] Last Admin: 12/17/16 09:44 Dose: 81 mg Collagenase (Santyl -) 1 applic TP DAILY [facility] Last Admin: 12/17/16 14:00 Dose: 1 applic Heparin Sodium (Porcine) (Heparin -) 5,000 unit SQ TID [facility] Last Admin: 12/18/16 05:59 Dose: 5,000 unit Ceftazidime 2 gm/ Sodium (Chloride) 100 mls @ 200 mls/hr IVPB Q8H-IV [facility] Last Admin: 12/18/16 01:35 Dose: 200 mls/hr Insulin Aspart (Novolog Vial Sliding Scale -) 1 vial SQ Q6HPO [facility] PRN Reason: Protocol Last Admin: 12/18/16 06:00 Dose: 2 units Pantoprazole Sodium (Protonix Packets For Oral Suspension -) 40 mg NGT DAILY [facility] Last Admin: 12/17/16 09:44 Dose: 40 mg Scopolamine HBr (Transderm-Scop -) 1 patch TD Q3D@1000 [facility] Last Admin: 12/16/16 14:16 Dose: 1 patch Vancomycin HCl (Vancomycin (Pre-Docked)) 1,000 mg IVPB BID [facility] Last Admin: 12/17/16 21:56 Dose: 1,000 mg - Objective Vital Signs: Vital Signs Temperature 97.9 F 12/18/16 05:15 Pulse Rate 82 12/18/16 11:04 Respiratory Rate 20 12/18/16 05:15 Blood Pressure 149/87 12/18/16 05:15 O2 Sat by Pulse Oximetry (%) 95 12/18/16 11:04 Constitutional: Yes: Calm, Thin Eyes: Yes: WNL HENT: Yes: WNL Neck: Yes: Supple (TRACH) Cardiovascular: Yes: Pulse Irregular, S1, S2 Respiratory: Yes: Diminished Gastrointestinal: Yes: Normal Bowel Sounds, Soft Extremities: Yes: WNL Edema: No Labs: CBC, BMP Problem List - Problems (1) Cerebrovascular small vessel disease Code(s): I67.9 - CEREBROVASCULAR DISEASE, UNSPECIFIED (2) Cholecystitis Code(s): K81.9 - CHOLECYSTITIS, UNSPECIFIED (3) Pneumonia Code(s): J18.9 - PNEUMONIA, UNSPECIFIED ORGANISM Qualifiers: Pneumonia type: due to Pseudomonas Laterality: left Lung location: lower lobe of lung Qualified Code(s): J15.1 - Pneumonia due to Pseudomonas (4) Respiratory failure Code(s): J96.90 - RESPIRATORY FAILURE, UNSP, UNSP W HYPOXIA OR HYPERCAPNIA Qualifiers: Chronicity: acute Respiratory failure complication: hypoxia Qualified Code(s): J96.01 - Acute respiratory failure with hypoxia (5) Acute and chronic respiratory failure Code(s): J96.20 - ACUTE AND CHR RESP FAILURE, UNSP W HYPOXIA OR HYPERCAPNIA (6) Afib Code(s): I48.91 - UNSPECIFIED ATRIAL FIBRILLATION (7) Acute on chronic respiratory failure with hypoxia Code(s): J96.21 - ACUTE AND CHRONIC RESPIRATORY FAILURE WITH HYPOXIA Assessment/Plan A/P Acute on Chronic Hypoxic Respiratory Failure UTI r/o Pneumonia Sepsis Tracheomalacia HTN CAD DM Atrial Fibrillation Dementia - antibiotics - trach collar - O2 to keep SpO2 >90% - aspiration precautions - IVF - enteral feeds - DVT prophylaxis - tracheal suctioning DR UNDERWOOD
--- NOTE | 2016-12-18 16:47 | PN ---
Progress Note, Physician History of Present Illness: Lethargic Answers simple questions by nodding Afebrile WBC improved-WNL - Current Medication List Current Medications: Active Medications Albuterol/Ipratropium (Duoneb -) 1 amp NEB Q4H PRN PRN Reason: SHORTNESS OF BREATH Albuterol/Ipratropium (Duoneb -) 1 amp NEB TIDR [facility] Last Admin: 12/18/16 14:29 Dose: 1 amp Aspirin (Asa -) 81 mg PO DAILY [facility] Last Admin: 12/18/16 11:29 Dose: 81 mg Collagenase (Santyl -) 1 applic TP DAILY [facility] Last Admin: 12/18/16 11:29 Dose: 1 applic Heparin Sodium (Porcine) (Heparin -) 5,000 unit SQ TID [facility] Last Admin: 12/18/16 14:30 Dose: 5,000 unit Ceftazidime 2 gm/ Sodium (Chloride) 100 mls @ 200 mls/hr IVPB Q8H-IV [facility] Last Admin: 12/18/16 11:29 Dose: 200 mls/hr Insulin Aspart (Novolog Vial Sliding Scale -) 1 vial SQ Q6HPO [facility] PRN Reason: Protocol Last Admin: 12/18/16 14:12 Dose: 2 units Pantoprazole Sodium (Protonix Packets For Oral Suspension -) 40 mg NGT DAILY [facility] Last Admin: 12/18/16 11:29 Dose: 40 mg Scopolamine HBr (Transderm-Scop -) 1 patch TD Q3D@1000 [facility] Last Admin: 12/16/16 14:16 Dose: 1 patch Vancomycin HCl (Vancomycin (Pre-Docked)) 1,000 mg IVPB BID [facility] Last Admin: 12/18/16 11:29 Dose: 1,000 mg - Objective Vital Signs: Vital Signs Temperature 99.2 F 12/18/16 15:00 Pulse Rate 88 12/18/16 15:00 Respiratory Rate 20 12/18/16 15:00 Blood Pressure 141/63 12/18/16 15:00 O2 Sat by Pulse Oximetry (%) 95 12/18/16 11:04 Constitutional: Yes: No Distress Eyes: Yes: Conjunctiva Clear Cardiovascular: Yes: Regular Rate and Rhythm, S1, S2 Respiratory: Yes: Diminished Gastrointestinal: Yes: Normal Bowel Sounds, Soft. No: Tenderness Labs: CBC, BMP 12/17/16 06:05 12/17/16 06:05 INR, PTT INR 1.21 (0.82-1.09) H 12/15/16 19:24 Assessment/Plan Resp failure LLL pneumonia + sputum c/s NLF PCN allergy Await final c/s Continue vanco/ ceftazidime
--- NOTE | 2016-12-18 20:32 | PN ---
Progress Note, Physician History of Present Illness: No new change - Current Medication List Current Medications: Active Medications Albuterol/Ipratropium (Duoneb -) 1 amp NEB Q4H PRN PRN Reason: SHORTNESS OF BREATH Albuterol/Ipratropium (Duoneb -) 1 amp NEB TIDR [facility] Last Admin: 12/18/16 14:29 Dose: 1 amp Aspirin (Asa -) 81 mg PO DAILY [facility] Last Admin: 12/18/16 11:29 Dose: 81 mg Collagenase (Santyl -) 1 applic TP DAILY [facility] Last Admin: 12/18/16 11:29 Dose: 1 applic Heparin Sodium (Porcine) (Heparin -) 5,000 unit SQ TID [facility] Last Admin: 12/18/16 14:30 Dose: 5,000 unit Ceftazidime 2 gm/ Sodium (Chloride) 100 mls @ 200 mls/hr IVPB Q8H-IV [facility] Last Admin: 12/18/16 18:36 Dose: 200 mls/hr Insulin Aspart (Novolog Vial Sliding Scale -) 1 vial SQ Q6HPO [facility] PRN Reason: Protocol Last Admin: 12/18/16 14:12 Dose: 2 units Pantoprazole Sodium (Protonix Packets For Oral Suspension -) 40 mg NGT DAILY [facility] Last Admin: 12/18/16 11:29 Dose: 40 mg Scopolamine HBr (Transderm-Scop -) 1 patch TD Q3D@1000 [facility] Last Admin: 12/16/16 14:16 Dose: 1 patch Vancomycin HCl (Vancomycin (Pre-Docked)) 1,000 mg IVPB BID [facility] Last Admin: 12/18/16 11:29 Dose: 1,000 mg - Objective Vital Signs: Vital Signs Temperature 98.1 F 12/18/16 17:00 Pulse Rate 92 H 12/18/16 17:00 Respiratory Rate 20 12/18/16 17:00 Blood Pressure 140/74 12/18/16 17:00 O2 Sat by Pulse Oximetry (%) 95 12/18/16 11:04 Constitutional: Yes: No Distress HENT: Yes: Other ((+) trach) Cardiovascular: Yes: WNL, Regular Rate and Rhythm Respiratory: Yes: Diminished Gastrointestinal: Yes: WNL, Normal Bowel Sounds, Soft, Other ((+) PEG) Labs: CBC, BMP 12/17/16 06:05 12/17/16 06:05 INR, PTT INR 1.21 (0.82-1.09) H 12/15/16 19:24 Problem List - Problems (1) Acute and chronic respiratory failure Assessment/Plan: ?LLL pneumonia Cont IV ceftazidime/vanco Cont nebulizers Trach care Code(s): J96.20 - ACUTE AND CHR RESP FAILURE, UNSP W HYPOXIA OR HYPERCAPNIA (2) Sepsis Assessment/Plan: Cont IV ceftazidime/vanco Urine culture (+) yeast WBC now normal As per ID Code(s): A41.9 - SEPSIS, UNSPECIFIED ORGANISM Qualifiers: Sepsis type: Pseudomonas Qualified Code(s): A41.52 - Sepsis due to Pseudomonas (3) Afib Code(s): I48.91 - UNSPECIFIED ATRIAL FIBRILLATION (4) HTN (hypertension) Assessment/Plan: Pt not on any hypotensives BP is stable Cont to monitor Code(s): I10 - ESSENTIAL (PRIMARY) HYPERTENSION (5) Diabetes Assessment/Plan: Cont novolog sliding scale Code(s): E11.9 - TYPE 2 DIABETES MELLITUS WITHOUT COMPLICATIONS (6) CAD (coronary artery disease) Code(s): I25.10 - ATHSCL HEART DISEASE OF [place] CORONARY ARTERY W/O ANG PCTRS (7) Cholecystitis with cholelithiasis Code(s): K80.10 - CALCULUS OF GALLBLADDER W CHRONIC CHOLECYST W/O OBSTRUCTION Qualifiers: Cholelithiasis location: gallbladder Cholecystitis acuity: acute Biliary obstruction: without biliary obstruction Qualified Code(s): K80.00 - Calculus of gallbladder with acute cholecystitis without obstruction (8) Alzheimer disease Code(s): G30.9 - ALZHEIMER'S DISEASE, UNSPECIFIED Qualifiers: Alzheimer's disease onset: early-onset Dementia behavioral disturbance : without behavioral disturbance Qualified Code(s): G30.0 - Alzheimer's disease with early onset; F02.81 - Dementia in other diseases classified elsewhere with behavioral disturbance
[2016-12-19] MEDS: CEFTAZIDIME PENTAHYDRATE IVPB SCH ×3 (01:44→19:02)
[2016-12-19] MEDS: SODIUM CHLORIDE IVPB SCH ×3 (01:44→19:02)
[2016-12-19] MEDS: HEPARIN NA (PORCINE) 5,000 UNITS/ML 1ML VIAL SQ SCH ×3 (06:27→21:50)
[2016-12-19] MEDS: INSULIN SLIDING SCALE (NOVOLOG) 1 VIAL SQ SCH ×3 (06:27→17:35)
[2016-12-19] MEDS ORDERED: INSULIN (NOVOLOG) ASPART 100 UNITS/ML 10ML VIAL ONE ×2 (06:43→12:15)
[2016-12-19] MEDS: ALBUTEROL SO4 2.5/IPRATROPIUM 0.5 INH SOL 3 ML VIAL.NEB. NEB SCH ×3 (06:48→22:27)
[2016-12-19 08:44] LABS: BASOPHIL 1.5 % (0-2.0); MCH 26.4 pg (25.7-33.7); MCHC 32.2 g/dl (32.0-35.9); MEAN CELL VOLUME 82.1 fl (80-96); MEAN PLT VOLUME 8.4 fl (7.5-11.1); NEUTROPHILS 70.8 % (42.8-82.8); PLATELET COUNT 385 K/MM3 (134-434); RDW 17.6 % (11.9-15.9)
[2016-12-19 09:13] LABS: ALK PHOS 109 U/L (45-117); ANION GAP 9 (8-16); BILIRUBIN,TOTAL 0.3 mg/dL (0.2-1.0); CALCIUM 8.7 mg/dL (8.5-10.1); CO2 27 mmol/L (21-32); COCKROFT - GAULT 96.21; CREATININE 0.6 mg/dL (0.7-1.3); GLUCOSE,RANDOM 129 mg/dL (74-106); SGOT/AST 17 U/L (15-37); SGPT/ALT 15 U/L (12-78); TOT PROT 6.5 g/dl (6.4-8.2)
[2016-12-19] MEDS ORDERED: PT OWN MED DRAWER 7, Y5N ONE (09:32)
[2016-12-19] MEDS: PANTOPRAZOLE SOD 40 MG SUSPENSION PACKET NGT SCH (09:37)
[2016-12-19] MEDS: VANCOMYCIN 1 GRAM (PRE-DOCKED) 1,000 MG/250 ML BAG IVPB SCH ×2 (09:37→21:50)
[2016-12-19] MEDS: ASPIRIN 81 MG CHEWABLE TABLETS PO SCH (09:37)
[2016-12-19] MEDS: SCOPOLAMINE HYDROBROMIDE 1 PATCH PATCH.TD72 TD SCH (09:37)
--- NOTE | 2016-12-19 14:16 | PN ---
Progress Note, Physician History of Present Illness: pulmonary awake,non-verbal,-resp distress - Current Medication List Current Medications: Active Medications Albuterol/Ipratropium (Duoneb -) 1 amp NEB Q4H PRN PRN Reason: SHORTNESS OF BREATH Albuterol/Ipratropium (Duoneb -) 1 amp NEB TIDR [facility] Last Admin: 12/19/16 13:51 Dose: 1 amp Aspirin (Asa -) 81 mg PO DAILY [facility] Last Admin: 12/19/16 09:37 Dose: 81 mg Collagenase (Santyl -) 1 applic TP DAILY [facility] Last Admin: 12/18/16 11:29 Dose: 1 applic Heparin Sodium (Porcine) (Heparin -) 5,000 unit SQ TID [facility] Last Admin: 12/19/16 06:27 Dose: 5,000 unit Ceftazidime 2 gm/ Sodium (Chloride) 100 mls @ 200 mls/hr IVPB Q8H-IV [facility] Last Admin: 12/19/16 13:27 Dose: 200 mls/hr Insulin Aspart (Novolog Vial Sliding Scale -) 1 vial SQ Q6HPO [facility] PRN Reason: Protocol Last Admin: 12/19/16 12:31 Dose: 4 units Pantoprazole Sodium (Protonix Packets For Oral Suspension -) 40 mg NGT DAILY [facility] Last Admin: 12/19/16 09:37 Dose: 40 mg Scopolamine HBr (Transderm-Scop -) 1 patch TD Q3D@1000 [facility] Last Admin: 12/19/16 09:37 Dose: 1 patch Vancomycin HCl (Vancomycin (Pre-Docked)) 1,000 mg IVPB BID [facility] Last Admin: 12/19/16 09:37 Dose: 1,000 mg - Objective Vital Signs: Vital Signs Temperature 97.9 F 12/19/16 06:55 Pulse Rate 83 12/19/16 10:47 Respiratory Rate 20 12/19/16 06:55 Blood Pressure 145/71 12/19/16 06:55 O2 Sat by Pulse Oximetry (%) 92 L 12/19/16 10:47 Constitutional: Yes: Calm, Thin Eyes: Yes: WNL HENT: Yes: WNL Neck: Yes: WNL Cardiovascular: Yes: Pulse Irregular, S1, S2 Respiratory: Yes: Diminished, Rhonchi (few scattered rhonchi) Gastrointestinal: Yes: WNL Extremities: Yes: WNL Edema: No Labs: CBC, BMP 12/19/16 06:52 12/19/16 06:52 INR, PTT INR 1.21 (0.82-1.09) H 12/15/16 19:24 Problem List - Problems (1) Cerebrovascular small vessel disease Code(s): I67.9 - CEREBROVASCULAR DISEASE, UNSPECIFIED (2) Cholecystitis Code(s): K81.9 - CHOLECYSTITIS, UNSPECIFIED (3) Pneumonia Code(s): J18.9 - PNEUMONIA, UNSPECIFIED ORGANISM Qualifiers: Pneumonia type: due to Pseudomonas Laterality: left Lung location: lower lobe of lung Qualified Code(s): J15.1 - Pneumonia due to Pseudomonas (4) Respiratory failure Code(s): J96.90 - RESPIRATORY FAILURE, UNSP, UNSP W HYPOXIA OR HYPERCAPNIA Qualifiers: Chronicity: acute Respiratory failure complication: hypoxia Qualified Code(s): J96.01 - Acute respiratory failure with hypoxia (5) Acute and chronic respiratory failure Code(s): J96.20 - ACUTE AND CHR RESP FAILURE, UNSP W HYPOXIA OR HYPERCAPNIA (6) Afib Code(s): I48.91 - UNSPECIFIED ATRIAL FIBRILLATION (7) Acute on chronic respiratory failure with hypoxia Code(s): J96.21 - ACUTE AND CHRONIC RESPIRATORY FAILURE WITH HYPOXIA Assessment/Plan A/P Acute on Chronic Hypoxic Respiratory Failure UTI r/o Pneumonia Sepsis Tracheomalacia HTN CAD DM Atrial Fibrillation Dementia - antibiotics - trach collar - O2 to keep SpO2 >90% - aspiration precautions - IVF - enteral feeds - DVT prophylaxis - tracheal suctioning DR UNDERWOOD
[2016-12-19] MEDS: COLLAGENASE CLOSTRIDIUM HIST. 30 GRAMS TUBE TP SCH (22:00)
--- NOTE | 2016-12-19 23:36 | PN ---
Progress Note, Physician - Current Medication List Current Medications: Active Medications Albuterol/Ipratropium (Duoneb -) 1 amp NEB Q4H PRN PRN Reason: SHORTNESS OF BREATH Albuterol/Ipratropium (Duoneb -) 1 amp NEB TIDR [facility] Last Admin: 12/19/16 22:27 Dose: 1 amp Aspirin (Asa -) 81 mg PO DAILY [facility] Last Admin: 12/19/16 09:37 Dose: 81 mg Collagenase (Santyl -) 1 applic TP DAILY [facility] Last Admin: 12/18/16 11:29 Dose: 1 applic Heparin Sodium (Porcine) (Heparin -) 5,000 unit SQ TID [facility] Last Admin: 12/19/16 21:50 Dose: 5,000 unit Ceftazidime 2 gm/ Sodium (Chloride) 100 mls @ 200 mls/hr IVPB Q8H-IV [facility] [place] Last Admin: 12/19/16 19:02 Dose: 200 mls/hr Insulin Aspart (Novolog Vial Sliding Scale -) 1 vial SQ Q6HPO [facility] PRN Reason: Protocol Last Admin: 12/19/16 17:35 Dose: Not Given Pantoprazole Sodium (Protonix Packets For Oral Suspension -) 40 mg NGT DAILY [facility] [place] Last Admin: 12/19/16 09:37 Dose: 40 mg Scopolamine HBr (Transderm-Scop -) 1 patch TD Q3D@1000 [facility] Last Admin: 12/19/16 09:37 Dose: 1 patch Vancomycin HCl (Vancomycin (Pre-Docked)) 1,000 mg IVPB BID [facility] [place] Last Admin: 12/19/16 21:50 Dose: 1,000 mg - Objective Vital Signs: Vital Signs Temperature 97.8 F 12/19/16 22:58 Pulse Rate 86 12/19/16 22:58 Respiratory Rate 20 12/19/16 22:58 Blood Pressure 145/80 12/19/16 22:58 O2 Sat by Pulse Oximetry (%) 92 L 12/19/16 10:47 Labs: CBC, BMP 12/19/16 06:52 12/19/16 06:52 INR, PTT INR 1.21 (0.82-1.09) H 12/15/16 19:24 Problem List - Problems (1) Acute and chronic respiratory failure Code(s): J96.20 - ACUTE AND CHR RESP FAILURE, UNSP W HYPOXIA OR HYPERCAPNIA (2) Sepsis Code(s): A41.9 - SEPSIS, UNSPECIFIED ORGANISM Qualifiers: Sepsis type: Pseudomonas Qualified Code(s): A41.52 - Sepsis due to Pseudomonas (3) Afib Code(s): I48.91 - UNSPECIFIED ATRIAL FIBRILLATION (4) HTN (hypertension) Code(s): I10 - ESSENTIAL (PRIMARY) HYPERTENSION (5) Diabetes Code(s): E11.9 - TYPE 2 DIABETES MELLITUS WITHOUT COMPLICATIONS (6) CAD (coronary artery disease) Code(s): I25.10 - ATHSCL HEART DISEASE OF [place] CORONARY ARTERY W/O ANG PCTRS (7) Cholecystitis with cholelithiasis Code(s): K80.10 - CALCULUS OF GALLBLADDER W CHRONIC CHOLECYST W/O OBSTRUCTION Qualifiers: Cholelithiasis location: gallbladder Cholecystitis acuity: acute Biliary obstruction: without biliary obstruction Qualified Code(s): K80.00 - Calculus of gallbladder with acute cholecystitis without obstruction (8) Alzheimer disease Code(s): G30.9 - ALZHEIMER'S DISEASE, UNSPECIFIED Qualifiers: Alzheimer's disease onset: early-onset Dementia behavioral disturbance : without behavioral disturbance Qualified Code(s): G30.0 - Alzheimer's disease with early onset; F02.81 - Dementia in other diseases classified elsewhere with behavioral disturbance
[2016-12-20] MEDS ORDERED: INSULIN (NOVOLOG) ASPART 100 UNITS/ML 10ML VIAL ONE ×2 (00:28→23:21)
[2016-12-20] MEDS: INSULIN SLIDING SCALE (NOVOLOG) 1 VIAL SQ SCH ×3 (00:29→17:44)
[2016-12-20] MEDS: CEFTAZIDIME PENTAHYDRATE IVPB SCH ×3 (01:02→17:39)
[2016-12-20] MEDS: SODIUM CHLORIDE IVPB SCH ×3 (01:02→17:39)
[2016-12-20] MEDS: HEPARIN NA (PORCINE) 5,000 UNITS/ML 1ML VIAL SQ SCH ×3 (06:09→22:15)
[2016-12-20] MEDS: ALBUTEROL SO4 2.5/IPRATROPIUM 0.5 INH SOL 3 ML VIAL.NEB. NEB SCH ×3 (07:02→22:21)
--- NOTE | 2016-12-20 10:21 | PN ---
Progress Note (short form) - Note Progress Note: Awake in NAD on 50% Trach collar. No acute events overnight . Intake & Output 12/17/16 12/18/16 12/19/16 12/20/16 23:59 23:59 23:59 23:59 Intake Total 9672 316 8105 780 Output Total 270 810 610 Balance 1320 -110 590 780 Weight 169 lb 11.2 oz Last Vital Signs Temp Pulse Resp BP Pulse Ox 99.3 F 97 H 20 145/85 97 12/20/16 06:07 12/20/16 06:07 12/20/16 06:07 12/20/16 06:07 12/19/16 21:00 Active Medications Albuterol/Ipratropium (Duoneb -) 1 amp NEB Q4H PRN PRN Reason: SHORTNESS OF BREATH Albuterol/Ipratropium (Duoneb -) 1 amp NEB TIDR [facility] Last Admin: 12/20/16 07:02 Dose: 1 amp Aspirin (Asa -) 81 mg PO DAILY [facility] Last Admin: 12/19/16 09:37 Dose: 81 mg Collagenase (Santyl -) 1 applic TP DAILY [facility] Last Admin: 12/19/16 22:00 Dose: 1 applic Heparin Sodium (Porcine) (Heparin -) 5,000 unit SQ TID [facility] Last Admin: 12/20/16 06:09 Dose: 5,000 unit Ceftazidime 2 gm/ Sodium (Chloride) 100 mls @ 200 mls/hr IVPB Q8H-IV [facility] Last Admin: 12/20/16 01:02 Dose: 200 mls/hr Insulin Aspart (Novolog Vial Sliding Scale -) 1 vial SQ Q6HPO [facility] PRN Reason: Protocol Last Admin: 12/20/16 06:11 Dose: 2 units Pantoprazole Sodium (Protonix Packets For Oral Suspension -) 40 mg NGT DAILY [facility] Last Admin: 12/19/16 09:37 Dose: 40 mg Scopolamine HBr (Transderm-Scop -) 1 patch TD Q3D@1000 [facility] Last Admin: 12/19/16 09:37 Dose: 1 patch Vancomycin HCl (Vancomycin (Pre-Docked)) 1,000 mg IVPB BID [facility] Last Admin: 12/19/16 21:50 Dose: 1,000 mg Constitutional: Yes: NAD, Thin Eyes: Yes: WNL HENT: Yes: WNL Neck: Yes: Trach intact, Trach collar O2 Cardiovascular: Yes: Pulse Irregular, S1, S2 Respiratory: Yes: Diminished at the bases, Scattered Rhonchi Gastrointestinal: Yes: WNL Extremities: Yes: WNL Edema: No Labs: Laboratory Results - last 24 hr 12/19/16 12/19/16 12/19/16 11:30 17:04 21:04 POC Glucometer 188 135 159 12/20/16 12/20/16 00:24 05:41 POC Glucometer 185 144 Problem List - Problems (1) Cerebrovascular small vessel disease Code(s): I67.9 - CEREBROVASCULAR DISEASE, UNSPECIFIED (2) Cholecystitis Code(s): K81.9 - CHOLECYSTITIS, UNSPECIFIED (3) Pneumonia Code(s): J18.9 - PNEUMONIA, UNSPECIFIED ORGANISM Qualifiers: Pneumonia type: due to Pseudomonas Laterality: left Lung location: lower lobe of lung Qualified Code(s): J15.1 - Pneumonia due to Pseudomonas (4) Respiratory failure Code(s): J96.90 - RESPIRATORY FAILURE, UNSP, UNSP W HYPOXIA OR HYPERCAPNIA Qualifiers: Chronicity: acute Respiratory failure complication: hypoxia Qualified Code(s): J96.01 - Acute respiratory failure with hypoxia (5) Acute and chronic respiratory failure Code(s): J96.20 - ACUTE AND CHR RESP FAILURE, UNSP W HYPOXIA OR HYPERCAPNIA (6) Afib Code(s): I48.91 - UNSPECIFIED ATRIAL FIBRILLATION (7) Acute on chronic respiratory failure with hypoxia Code(s): J96.21 - ACUTE AND CHRONIC RESPIRATORY FAILURE WITH HYPOXIA Assessment/Plan A/P Acute on Chronic Hypoxic Respiratory Failure UTI r/o Pneumonia Sepsis Tracheomalacia HTN CAD DM Atrial Fibrillation Dementia - ABX per ID - trach collar - O2 to keep SpO2 >90% - aspiration precautions - enteral feeds - DVT prophylaxis - tracheal suctioning PRN Dr Pruett
[2016-12-20] MEDS: PANTOPRAZOLE SOD 40 MG SUSPENSION PACKET NGT SCH (10:57)
[2016-12-20] MEDS: ASPIRIN 81 MG CHEWABLE TABLETS PO SCH (10:57)
[2016-12-20] MEDS: VANCOMYCIN 1 GRAM (PRE-DOCKED) 1,000 MG/250 ML BAG IVPB SCH ×2 (10:58→22:15)
[2016-12-20] MEDS: COLLAGENASE CLOSTRIDIUM HIST. 30 GRAMS TUBE TP SCH (11:01)
--- NOTE | 2016-12-20 23:11 | PN ---
Progress Note, Physician - Current Medication List Current Medications: Active Medications Albuterol/Ipratropium (Duoneb -) 1 amp NEB Q4H PRN PRN Reason: SHORTNESS OF BREATH Albuterol/Ipratropium (Duoneb -) 1 amp NEB TIDR [facility] Last Admin: 12/20/16 22:21 Dose: 1 amp Aspirin (Asa -) 81 mg PO DAILY [facility] Last Admin: 12/20/16 10:57 Dose: 81 mg Collagenase (Santyl -) 1 applic TP DAILY [facility] Last Admin: 12/20/16 11:01 Dose: 1 applic Heparin Sodium (Porcine) (Heparin -) 5,000 unit SQ TID [facility] Last Admin: 12/20/16 22:15 Dose: 5,000 unit Ceftazidime 2 gm/ Sodium (Chloride) 100 mls @ 200 mls/hr IVPB Q8H-IV [facility] Last Admin: 12/20/16 17:39 Dose: 200 mls/hr Insulin Aspart (Novolog Vial Sliding Scale -) 1 vial SQ Q6HPO [facility] PRN Reason: Protocol Last Admin: 12/20/16 17:44 Dose: Not Given Pantoprazole Sodium (Protonix Packets For Oral Suspension -) 40 mg NGT DAILY [facility] Last Admin: 12/20/16 10:57 Dose: 40 mg Scopolamine HBr (Transderm-Scop -) 1 patch TD Q3D@1000 [facility] Last Admin: 12/19/16 09:37 Dose: 1 patch Vancomycin HCl (Vancomycin (Pre-Docked)) 1,000 mg IVPB BID [facility] Last Admin: 12/20/16 22:15 Dose: 1,000 mg - Objective Vital Signs: Vital Signs Temperature 97.9 F 12/20/16 19:00 Pulse Rate 96 H 12/20/16 19:00 Respiratory Rate 18 12/20/16 19:00 Blood Pressure 125/69 12/20/16 19:00 O2 Sat by Pulse Oximetry (%) 95 12/20/16 14:48 Labs: CBC, BMP 12/19/16 06:52 12/19/16 06:52 INR, PTT INR 1.21 (0.82-1.09) H 12/15/16 19:24 Problem List - Problems (1) Acute and chronic respiratory failure Code(s): J96.20 - ACUTE AND CHR RESP FAILURE, UNSP W HYPOXIA OR HYPERCAPNIA (2) Sepsis Code(s): A41.9 - SEPSIS, UNSPECIFIED ORGANISM Qualifiers: Sepsis type: Pseudomonas Qualified Code(s): A41.52 - Sepsis due to Pseudomonas (3) Afib Code(s): I48.91 - UNSPECIFIED ATRIAL FIBRILLATION (4) HTN (hypertension) Code(s): I10 - ESSENTIAL (PRIMARY) HYPERTENSION (5) Diabetes Code(s): E11.9 - TYPE 2 DIABETES MELLITUS WITHOUT COMPLICATIONS (6) CAD (coronary artery disease) Code(s): I25.10 - ATHSCL HEART DISEASE OF [place] CORONARY ARTERY W/O ANG PCTRS (7) Cholecystitis with cholelithiasis Code(s): K80.10 - CALCULUS OF GALLBLADDER W CHRONIC CHOLECYST W/O OBSTRUCTION Qualifiers: Cholelithiasis location: gallbladder Cholecystitis acuity: acute Biliary obstruction: without biliary obstruction Qualified Code(s): K80.00 - Calculus of gallbladder with acute cholecystitis without obstruction (8) Alzheimer disease Code(s): G30.9 - ALZHEIMER'S DISEASE, UNSPECIFIED Qualifiers: Alzheimer's disease onset: early-onset Dementia behavioral disturbance : without behavioral disturbance Qualified Code(s): G30.0 - Alzheimer's disease with early onset; F02.81 - Dementia in other diseases classified elsewhere with behavioral disturbance
[2016-12-21] MEDS: CEFTAZIDIME PENTAHYDRATE IVPB SCH ×3 (01:28→18:16)
[2016-12-21] MEDS: SODIUM CHLORIDE IVPB SCH ×3 (01:28→18:16)
[2016-12-21] MEDS: ALBUTEROL SO4 2.5/IPRATROPIUM 0.5 INH SOL 3 ML VIAL.NEB. NEB SCH ×3 (06:40→22:53)
[2016-12-21] MEDS: HEPARIN NA (PORCINE) 5,000 UNITS/ML 1ML VIAL SQ SCH ×3 (06:46→21:51)
[2016-12-21] MEDS: INSULIN SLIDING SCALE (NOVOLOG) 1 VIAL SQ SCH ×4 (06:51→18:22)
[2016-12-21] MEDS ORDERED: INSULIN (NOVOLOG) ASPART 100 UNITS/ML 10ML VIAL ONE ×2 (07:55→19:50)
[2016-12-21] MEDS ORDERED: PT OWN MED DRAWER 7, Y5N ONE ×3 (10:01→19:49)
[2016-12-21] MEDS: ASPIRIN 81 MG CHEWABLE TABLETS PO SCH (10:09)
[2016-12-21] MEDS: COLLAGENASE CLOSTRIDIUM HIST. 30 GRAMS TUBE TP SCH (10:10)
[2016-12-21] MEDS: PANTOPRAZOLE SOD 40 MG SUSPENSION PACKET NGT SCH (10:10)
[2016-12-21] MEDS: VANCOMYCIN 1 GRAM (PRE-DOCKED) 1,000 MG/250 ML BAG IVPB SCH (10:11)
--- NOTE | 2016-12-21 14:25 | PN ---
Progress Note, Physician History of Present Illness: PULMONARY NO DISTRESS,NON-VERBAL,ON TRACH COLLAR 50% O2 - Current Medication List Current Medications: Active Medications Albuterol/Ipratropium (Duoneb -) 1 amp NEB Q4H PRN PRN Reason: SHORTNESS OF BREATH Albuterol/Ipratropium (Duoneb -) 1 amp NEB TIDR [facility] Last Admin: 12/21/16 14:20 Dose: 1 amp Aspirin (Asa -) 81 mg PO DAILY [facility] Last Admin: 12/21/16 10:09 Dose: 81 mg Collagenase (Santyl -) 1 applic TP DAILY [facility] Last Admin: 12/21/16 10:10 Dose: 1 applic Heparin Sodium (Porcine) (Heparin -) 5,000 unit SQ TID [facility] Last Admin: 12/21/16 06:46 Dose: 5,000 unit Ceftazidime 2 gm/ Sodium (Chloride) 100 mls @ 200 mls/hr IVPB Q8H-IV [facility] Last Admin: 12/21/16 10:10 Dose: 200 mls/hr Insulin Aspart (Novolog Vial Sliding Scale -) 1 vial SQ Q6HPO [facility] PRN Reason: Protocol Last Admin: 12/21/16 11:44 Dose: 2 units Pantoprazole Sodium (Protonix Packets For Oral Suspension -) 40 mg NGT DAILY [facility] Last Admin: 12/21/16 10:10 Dose: 40 mg Scopolamine HBr (Transderm-Scop -) 1 patch TD Q3D@1000 [facility] Last Admin: 12/19/16 09:37 Dose: 1 patch Vancomycin HCl (Vancomycin (Pre-Docked)) 1,000 mg IVPB BID [facility] Last Admin: 12/21/16 10:11 Dose: 1,000 mg - Objective Vital Signs: Vital Signs Temperature 98 F 12/21/16 09:00 Pulse Rate 76 12/21/16 11:22 Respiratory Rate 20 12/21/16 09:00 Blood Pressure 144/82 12/21/16 09:00 O2 Sat by Pulse Oximetry (%) 98 12/21/16 11:22 Constitutional: Yes: Calm, Thin Eyes: Yes: WNL HENT: Yes: WNL Neck: Yes: Supple (TRACH) Cardiovascular: Yes: Pulse Irregular, S1, S2 Respiratory: Yes: Rhonchi (SCATTERED NEETU RHONCHI) Gastrointestinal: Yes: Normal Bowel Sounds, Soft Extremities: Yes: WNL Edema: No Labs: CBC, BMP 12/19/16 06:52 12/19/16 06:52 INR, PTT INR 1.21 (0.82-1.09) H 12/15/16 19:24 Problem List - Problems (1) Cerebrovascular small vessel disease Code(s): I67.9 - CEREBROVASCULAR DISEASE, UNSPECIFIED (2) Cholecystitis Code(s): K81.9 - CHOLECYSTITIS, UNSPECIFIED (3) Pneumonia Code(s): J18.9 - PNEUMONIA, UNSPECIFIED ORGANISM Qualifiers: Pneumonia type: due to Pseudomonas Laterality: left Lung location: lower lobe of lung Qualified Code(s): J15.1 - Pneumonia due to Pseudomonas (4) Respiratory failure Code(s): J96.90 - RESPIRATORY FAILURE, UNSP, UNSP W HYPOXIA OR HYPERCAPNIA Qualifiers: Chronicity: acute Respiratory failure complication: hypoxia Qualified Code(s): J96.01 - Acute respiratory failure with hypoxia (5) Acute and chronic respiratory failure Code(s): J96.20 - ACUTE AND CHR RESP FAILURE, UNSP W HYPOXIA OR HYPERCAPNIA (6) Afib Code(s): I48.91 - UNSPECIFIED ATRIAL FIBRILLATION (7) Acute on chronic respiratory failure with hypoxia Code(s): J96.21 - ACUTE AND CHRONIC RESPIRATORY FAILURE WITH HYPOXIA Assessment/Plan A/P Acute on Chronic Hypoxic Respiratory Failure improving UTI r/o Pneumonia Sepsis Tracheomalacia HTN CAD DM Atrial Fibrillation Dementia - antibiotics - trach collar - O2 to keep SpO2 >90% - aspiration precautions - IVF - enteral feeds - DVT prophylaxis - tracheal suctioning - chest x-ray am DR UNDERWOOD
--- NOTE | 2016-12-21 15:47 | PN ---
Progress Note (short form) - Note Progress Note: nad resting comfortably Vital Signs Period Temp Pulse Resp BP Sys/[place] Pulse Ox Last 24 Hr 97.9 F-98.9 F 76-97 18-20 125-150/69-82 95-99 cor-rrr lungs decrased bs at bases abd soft,nt ext no edema CBC, BMP 12/19/16 06:52 12/19/16 06:52 Microbiology 12/15/16 19:23 Blood - Peripheral Venous Blood Culture - Final NO GROWTH AFTER 5 DAYS INCUBATION 12/15/16 19:23 Blood - Peripheral Venous Blood Culture - Final NO GROWTH AFTER 5 DAYS INCUBATION 12/16/16 06:30 Sputum - Endotracheal Suction W/O Vent Gram Stain - Final 12/16/16 06:30 Sputum - Endotracheal Suction W/O Vent Sputum Culture - Final Pseudomonas Aeruginosa 12/15/16 19:23 Urine - Urine - Catheterized Urine Culture - Final Yeast Like Organism Current Medications Albuterol/Ipratropium (Duoneb -) 1 amp NEB Q4H PRN PRN Reason: SHORTNESS OF BREATH Albuterol/Ipratropium (Duoneb -) 1 amp NEB TIDR [facility] Last Admin: 12/21/16 14:20 Dose: 1 amp Aspirin (Asa -) 81 mg PO DAILY [facility] Last Admin: 12/21/16 10:09 Dose: 81 mg Collagenase (Santyl -) 1 applic TP DAILY [facility] Last Admin: 12/21/16 10:10 Dose: 1 applic Heparin Sodium (Porcine) (Heparin -) 5,000 unit SQ TID [facility] Last Admin: 12/21/16 15:02 Dose: 5,000 unit Ceftazidime 2 gm/ Sodium (Chloride) 100 mls @ 200 mls/hr IVPB Q8H-IV [facility] Last Admin: 12/21/16 10:10 Dose: 200 mls/hr Insulin Aspart (Novolog Vial Sliding Scale -) 1 vial SQ Q6HPO [facility] PRN Reason: Protocol Last Admin: 12/21/16 11:44 Dose: 2 units Pantoprazole Sodium (Protonix Packets For Oral Suspension -) 40 mg NGT DAILY [facility] Last Admin: 12/21/16 10:10 Dose: 40 mg Scopolamine HBr (Transderm-Scop -) 1 patch TD Q3D@1000 [facility] Last Admin: 12/19/16 09:37 Dose: 1 patch Vancomycin HCl (Vancomycin (Pre-Docked)) 1,000 mg IVPB BID [facility] Last Admin: 12/21/16 10:11 Dose: 1,000 mg a/p chronic resp failure worsening LLL infiltrate pen allergy d/c vancomycin- no mrsa continue [facility] Problem List - Problems (1) Pneumonia Code(s): J18.9 - PNEUMONIA, UNSPECIFIED ORGANISM Qualifiers: Pneumonia type: due to Pseudomonas Laterality: left Lung location: lower lobe of lung Qualified Code(s): J15.1 - Pneumonia due to Pseudomonas (2) Penicillin allergy Code(s): Z88.0 - ALLERGY STATUS TO PENICILLIN
--- NOTE | 2016-12-21 16:06 | PN ---
Progress Note (short form) - Note Progress Note: GI CONSULTATION: PLEASE SEE COMPLETE DICTATION: ORDER PLACED FOR GI CONSULT DUE TO "RECTAL BLEEDING" HOWEVER, NURSING STAFF NOT CERTAIN THIS THE PATIENT HAVING BLEEDING PATIENT UNABLE TO VERBALIZE ANY COMPLAINTS/ SDAT, HAVE PERFORMED A REVIEW OF CHART AND PHYSICAL EXAM GT APPEARS FUNCTIONING WITHOUT DIFFICULTY JACI: STOOL ABUNDANT, NOT IMPACTED, YELLOW, MALONEY AND GUAIAC NEGATIVE HGB--ANEMIC, BUT NO PRECIPITOUS DROP IN HGB TO SUGGEST ANY ACUTE BLEEDING NO CLINICAL OR BIOCHEMICAL EVIDENCE OF GI TRACT BLEEDING AT THIS TIME OBESERVE CONTINUE FEEDS PLEASE CALL NEEDED THANKS, MD CARMELLA CALL PLACED TO PMD DR RILEY
--- NOTE | 2016-12-21 23:28 | PN ---
Progress Note, Physician - Current Medication List Current Medications: Active Medications Albuterol/Ipratropium (Duoneb -) 1 amp NEB Q4H PRN PRN Reason: SHORTNESS OF BREATH Albuterol/Ipratropium (Duoneb -) 1 amp NEB TIDR [facility] Last Admin: 12/21/16 22:53 Dose: 1 amp Aspirin (Asa -) 81 mg PO DAILY [facility] Last Admin: 12/21/16 10:09 Dose: 81 mg Collagenase (Santyl -) 1 applic TP DAILY [facility] Last Admin: 12/21/16 10:10 Dose: 1 applic Heparin Sodium (Porcine) (Heparin -) 5,000 unit SQ TID [facility] Last Admin: 12/21/16 21:51 Dose: 5,000 unit Ceftazidime 2 gm/ Sodium (Chloride) 100 mls @ 200 mls/hr IVPB Q8H-IV [facility] Last Admin: 12/21/16 18:16 Dose: 200 mls/hr Insulin Aspart (Novolog Vial Sliding Scale -) 1 vial SQ Q6HPO [facility] PRN Reason: Protocol Last Admin: 12/21/16 18:22 Dose: 2 units Pantoprazole Sodium (Protonix Packets For Oral Suspension -) 40 mg NGT DAILY [facility] Last Admin: 12/21/16 10:10 Dose: 40 mg Scopolamine HBr (Transderm-Scop -) 1 patch TD Q3D@1000 [facility] Last Admin: 12/19/16 09:37 Dose: 1 patch - Objective Vital Signs: Vital Signs Temperature 98.9 F 12/21/16 18:00 Pulse Rate 102 H 12/21/16 18:00 Respiratory Rate 20 12/21/16 18:00 Blood Pressure 105/69 12/21/16 18:00 O2 Sat by Pulse Oximetry (%) 96 12/21/16 17:10 Labs: CBC, BMP 12/19/16 06:52 12/19/16 06:52 INR, PTT INR 1.21 (0.82-1.09) H 12/15/16 19:24 Problem List - Problems (1) Acute and chronic respiratory failure Code(s): J96.20 - ACUTE AND CHR RESP FAILURE, UNSP W HYPOXIA OR HYPERCAPNIA (2) Sepsis Code(s): A41.9 - SEPSIS, UNSPECIFIED ORGANISM Qualifiers: Sepsis type: Pseudomonas Qualified Code(s): A41.52 - Sepsis due to Pseudomonas (3) Afib Code(s): I48.91 - UNSPECIFIED ATRIAL FIBRILLATION (4) HTN (hypertension) Code(s): I10 - ESSENTIAL (PRIMARY) HYPERTENSION (5) Diabetes Code(s): E11.9 - TYPE 2 DIABETES MELLITUS WITHOUT COMPLICATIONS (6) CAD (coronary artery disease) Code(s): I25.10 - ATHSCL HEART DISEASE OF [place] CORONARY ARTERY W/O ANG PCTRS (7) Cholecystitis with cholelithiasis Code(s): K80.10 - CALCULUS OF GALLBLADDER W CHRONIC CHOLECYST W/O OBSTRUCTION Qualifiers: Cholelithiasis location: gallbladder Cholecystitis acuity: acute Biliary obstruction: without biliary obstruction Qualified Code(s): K80.00 - Calculus of gallbladder with acute cholecystitis without obstruction (8) Alzheimer disease Code(s): G30.9 - ALZHEIMER'S DISEASE, UNSPECIFIED Qualifiers: Alzheimer's disease onset: early-onset Dementia behavioral disturbance : without behavioral disturbance Qualified Code(s): G30.0 - Alzheimer's disease with early onset; F02.81 - Dementia in other diseases classified elsewhere with behavioral disturbance
[2016-12-22] MEDS ORDERED: INSULIN (NOVOLOG) ASPART 100 UNITS/ML 10ML VIAL ONE (00:29)
[2016-12-22] MEDS: INSULIN SLIDING SCALE (NOVOLOG) 1 VIAL SQ SCH ×5 (00:32→22:23)
[2016-12-22] MEDS: CEFTAZIDIME PENTAHYDRATE IVPB SCH ×3 (01:07→17:15)
[2016-12-22] MEDS: SODIUM CHLORIDE IVPB SCH ×3 (01:07→17:15)
[2016-12-22] MEDS: HEPARIN NA (PORCINE) 5,000 UNITS/ML 1ML VIAL SQ SCH ×3 (05:49→21:42)
[2016-12-22] MEDS: ALBUTEROL SO4 2.5/IPRATROPIUM 0.5 INH SOL 3 ML VIAL.NEB. NEB SCH ×2 (07:01→14:49)
--- NOTE | 2016-12-22 08:03 | CONS ---
DATE OF CONSULTATION: 12/21/2016 I was asked by Dr. Prince to evaluate the patient for rectal bleeding. HISTORY: The patient is an 86-year-old male who cannot elicit any medical history whatsoever. He has a past medical history of Alzheimer disease, hypertension, hyperlipidemia, atherosclerotic coronary artery disease status post a metal stent placement, atrial fibrillation, right atrial lipoma, latent TB, and diabetes. Apparently, he came in December 15 to [facility] for respiratory distress and fever. He was noted to be desaturating and in distress. He had a fever of 103. He was found to be septic, hypotensive, tachypneic, and he was admitted for treatment. The patient is noted to have a tracheostomy and a PEG tube. The patient is allergic to PENICILLIN. The patient came in on Norvasc, vitamin C, aspirin, Lipitor, Peridex, clindamycin, Lovenox, Pepcid, Lasix, Levemir insulin, Acidophilus, Zestril, and Lopressor as well as multivitamin, Aldactone, Tylenol, DuoNeb, aspirin, Lipitor. Apparently, we are called because there was question of rectal bleeding, but it has been unsettled as to whether this was the correct patient with the rectal bleeding. The nursing staff has not seen any rectal bleeding, and the patient is not able to elicit any history. The patient is anemic; however, with a hemoglobin of 9.8 and a hematocrit of 32. MEDICATIONS: Currently in the hospital the patient's medications include ceftazidime, heparin subcutaneous, DuoNeb, Norvasc, aspirin, Protonix, Collagenase. PHYSICAL EXAMINATION: General: He appears cachectic and chronically ill. He is nonverbal and noncommunicative. He does have respond to deep stimuli. Vital Signs: Stable. He is afebrile. He is not tachycardic. Abdomen: Flat, symmetric. There is a G-tube in situ, and he is getting feeds without any leakage. The G-tube is clean, dry, and intact. There is no erythema or evidence of G-tube cellulitis. The abdomen is soft. There is no tenderness to deep palpation. There are no masses, rebound, or guarding. Rectal: He has stool that is richmond and guaiac negative. LABORATORY DATA: Notable in that his hemoglobin has been stable ranging between 9.8, 8.8, 9.7. He has an MCV of 82 and 385,000 platelets. He had electrolytes on December 19 with a serum sodium 137, potassium 4.2, chloride 101, bicarbonate 27, BUN 13, creatinine 0.6, and his liver enzymes are normal. His albumin is 2. IMPRESSION: The patient is an 86-year-old gentleman from [facility] who came in on septic shock, is on antibiotics, and has multiple medical problems. There is no evidence of any overt or occult gastrointestinal bleeding. He appears to be chronically anemic. His stool on my exam is richmond and guaiac negative. His gastrostomy tube is functioning. I do not see any acute gastrointestinal crisis at the present time. In fact, the nursing staff has questioned whether this patient has had any rectal bleeding whatsoever. We will continue to be available to aid in management of this patient if needed. QIANA WEIR M.D. [id number]
[2016-12-22 08:11] LABS: BASOPHIL 0.8 % (0-2.0); EOSINOPHIL 2.6 % (0-4.5); MCH 26.6 pg (25.7-33.7); MCHC 32.3 g/dl (32.0-35.9); MEAN CELL VOLUME 82.6 fl (80-96); MEAN PLT VOLUME 8.6 fl (7.5-11.1); NEUTROPHILS 77.5 % (42.8-82.8); PLATELET COUNT 412 K/MM3 (134-434); RDW 17.8 % (11.9-15.9); WHITE BLOOD COUNT 9.8 K/mm3 (4.0-10.0)
[2016-12-22 08:44] LABS: ALBUMIN 2.2 g/dl (3.4-5.0); ALK PHOS 123 U/L (45-117); ANION GAP 12 (8-16); BILIRUBIN,TOTAL 0.4 mg/dL (0.2-1.0); CALCIUM 9.3 mg/dL (8.5-10.1); CO2 27 mmol/L (21-32); CREATININE 0.7 mg/dL (0.7-1.3); GLUCOSE,RANDOM 126 mg/dL (74-106); SGOT/AST 26 U/L (15-37); SGPT/ALT 18 U/L (12-78)
[2016-12-22] MEDS: ASPIRIN 81 MG CHEWABLE TABLETS PO SCH (10:37)
[2016-12-22] MEDS: PANTOPRAZOLE SOD 40 MG SUSPENSION PACKET NGT SCH (10:37)
[2016-12-22] MEDS: SCOPOLAMINE HYDROBROMIDE 1 PATCH PATCH.TD72 TD SCH (10:37)
[2016-12-22] MEDS: COLLAGENASE CLOSTRIDIUM HIST. 30 GRAMS TUBE TP SCH ×2 (12:33→22:22)
--- NOTE | 2016-12-22 13:27 | PN ---
Progress Note, Physician History of Present Illness: pulmonary no change,-resp distress,-congestion - Current Medication List Current Medications: Active Medications Albuterol/Ipratropium (Duoneb -) 1 amp NEB TIDR [facility] Last Admin: 12/22/16 07:01 Dose: 1 amp Aspirin (Asa -) 81 mg PO DAILY [facility] Last Admin: 12/22/16 10:37 Dose: 81 mg Collagenase (Santyl -) 1 applic TP DAILY [facility] Last Admin: 12/22/16 12:33 Dose: 1 applic Heparin Sodium (Porcine) (Heparin -) 5,000 unit SQ TID [facility] Last Admin: 12/22/16 05:49 Dose: 5,000 unit Ceftazidime 2 gm/ Sodium (Chloride) 100 mls @ 200 mls/hr IVPB Q8H-IV [facility] Last Admin: 12/22/16 10:37 Dose: 200 mls/hr Insulin Aspart (Novolog Vial Sliding Scale -) 1 vial SQ Q6HPO [facility] PRN Reason: Protocol Last Admin: 12/22/16 12:34 Dose: 4 units Pantoprazole Sodium (Protonix Packets For Oral Suspension -) 40 mg NGT DAILY [facility] Last Admin: 12/22/16 10:37 Dose: 40 mg Scopolamine HBr (Transderm-Scop -) 1 patch TD Q3D@1000 [facility] Last Admin: 12/22/16 10:37 Dose: 1 patch - Objective Vital Signs: Vital Signs Temperature 98.1 F 12/22/16 06:00 Pulse Rate 103 H 12/22/16 12:08 Respiratory Rate 20 12/22/16 10:00 Blood Pressure 136/74 12/22/16 10:00 O2 Sat by Pulse Oximetry (%) 93 L 12/22/16 12:08 Constitutional: Yes: Thin, Other (poorly responsive) Eyes: Yes: WNL HENT: Yes: WNL Neck: Yes: Supple (trach) Cardiovascular: Yes: Regular Rate and Rhythm, S1, S2 Respiratory: Yes: Diminished Gastrointestinal: Yes: Normal Bowel Sounds, Soft Extremities: Yes: WNL Edema: No Labs: CBC, BMP 12/22/16 06:40 12/22/16 06:40 INR, PTT INR 1.21 (0.82-1.09) H 12/15/16 19:24 Problem List - Problems (1) Cerebrovascular small vessel disease Code(s): I67.9 - CEREBROVASCULAR DISEASE, UNSPECIFIED (2) Cholecystitis Code(s): K81.9 - CHOLECYSTITIS, UNSPECIFIED (3) Pneumonia Code(s): J18.9 - PNEUMONIA, UNSPECIFIED ORGANISM Qualifiers: Pneumonia type: due to Pseudomonas Laterality: left Lung location: lower lobe of lung Qualified Code(s): J15.1 - Pneumonia due to Pseudomonas (4) Respiratory failure Code(s): J96.90 - RESPIRATORY FAILURE, UNSP, UNSP W HYPOXIA OR HYPERCAPNIA Qualifiers: Chronicity: acute Respiratory failure complication: hypoxia Qualified Code(s): J96.01 - Acute respiratory failure with hypoxia (5) Acute and chronic respiratory failure Code(s): J96.20 - ACUTE AND CHR RESP FAILURE, UNSP W HYPOXIA OR HYPERCAPNIA (6) Afib Code(s): I48.91 - UNSPECIFIED ATRIAL FIBRILLATION (7) Acute on chronic respiratory failure with hypoxia Code(s): J96.21 - ACUTE AND CHRONIC RESPIRATORY FAILURE WITH HYPOXIA Assessment/Plan A/P Acute on Chronic Hypoxic Respiratory Failure improving UTI r/o Pneumonia Sepsis Tracheomalacia HTN CAD DM Atrial Fibrillation Dementia - antibiotics - trach collar - O2 to keep SpO2 >90% - aspiration precautions - IVF - enteral feeds - DVT prophylaxis - tracheal suctioning - chest x-ray today DR UNDERWOOD
[2016-12-22] MEDS ORDERED: ALBUTEROL SO4 2.5/IPRATROPIUM 0.5 INH SOL 3 ML VIAL.NEB. NEB ONE (14:16)
--- NOTE | 2016-12-22 23:54 | PN ---
Progress Note, Physician - Current Medication List Current Medications: Active Medications Aspirin (Asa -) 81 mg PO DAILY [facility] Last Admin: 12/22/16 10:37 Dose: 81 mg Collagenase (Santyl -) 1 applic TP DAILY [facility] Last Admin: 12/22/16 22:22 Dose: Not Given Heparin Sodium (Porcine) (Heparin -) 5,000 unit SQ TID [facility] Last Admin: 12/22/16 21:42 Dose: 5,000 unit Ceftazidime 2 gm/ Sodium (Chloride) 100 mls @ 200 mls/hr IVPB Q8H-IV [facility] Last Admin: 12/22/16 17:15 Dose: 200 mls/hr Insulin Aspart (Novolog Vial Sliding Scale -) 1 vial SQ Q6HPO [facility] PRN Reason: Protocol Last Admin: 12/22/16 22:23 Dose: Not Given Pantoprazole Sodium (Protonix Packets For Oral Suspension -) 40 mg NGT DAILY [facility] Last Admin: 12/22/16 10:37 Dose: 40 mg Scopolamine HBr (Transderm-Scop -) 1 patch TD Q3D@1000 [facility] Last Admin: 12/22/16 10:37 Dose: 1 patch - Objective Vital Signs: Vital Signs Temperature 98.1 F 12/22/16 06:00 Pulse Rate 89 12/22/16 22:00 Respiratory Rate 20 12/22/16 10:00 Blood Pressure 132/84 12/22/16 22:00 O2 Sat by Pulse Oximetry (%) 94 L 12/22/16 21:00 Labs: CBC, BMP 12/22/16 06:40 12/22/16 06:40 INR, PTT INR 1.21 (0.82-1.09) H 12/15/16 19:24 Problem List - Problems (1) Acute and chronic respiratory failure Code(s): J96.20 - ACUTE AND CHR RESP FAILURE, UNSP W HYPOXIA OR HYPERCAPNIA (2) Sepsis Code(s): A41.9 - SEPSIS, UNSPECIFIED ORGANISM Qualifiers: Sepsis type: Pseudomonas Qualified Code(s): A41.52 - Sepsis due to Pseudomonas (3) Afib Code(s): I48.91 - UNSPECIFIED ATRIAL FIBRILLATION (4) HTN (hypertension) Code(s): I10 - ESSENTIAL (PRIMARY) HYPERTENSION (5) Diabetes Code(s): E11.9 - TYPE 2 DIABETES MELLITUS WITHOUT COMPLICATIONS (6) CAD (coronary artery disease) Code(s): I25.10 - ATHSCL HEART DISEASE OF [place] CORONARY ARTERY W/O ANG PCTRS (7) Cholecystitis with cholelithiasis Code(s): K80.10 - CALCULUS OF GALLBLADDER W CHRONIC CHOLECYST W/O OBSTRUCTION Qualifiers: Cholelithiasis location: gallbladder Cholecystitis acuity: acute Biliary obstruction: without biliary obstruction Qualified Code(s): K80.00 - Calculus of gallbladder with acute cholecystitis without obstruction (8) Alzheimer disease Code(s): G30.9 - ALZHEIMER'S DISEASE, UNSPECIFIED Qualifiers: Alzheimer's disease onset: early-onset Dementia behavioral disturbance : without behavioral disturbance Qualified Code(s): G30.0 - Alzheimer's disease with early onset; F02.81 - Dementia in other diseases classified elsewhere with behavioral disturbance
[2016-12-23] MEDS: INSULIN SLIDING SCALE (NOVOLOG) 1 VIAL SQ SCH ×5 (00:02→23:24)
[2016-12-23] MEDS ORDERED: INSULIN (NOVOLOG) ASPART 100 UNITS/ML 10ML VIAL ONE ×3 (00:02→23:20)
[2016-12-23] MEDS: CEFTAZIDIME PENTAHYDRATE IVPB SCH ×3 (01:18→17:51)
[2016-12-23] MEDS: SODIUM CHLORIDE IVPB SCH ×3 (01:18→17:51)
[2016-12-23] MEDS: HEPARIN NA (PORCINE) 5,000 UNITS/ML 1ML VIAL SQ SCH ×2 (05:54→14:47)
[2016-12-23] MEDS: ASPIRIN 81 MG CHEWABLE TABLETS PO SCH (09:10)
[2016-12-23] MEDS: COLLAGENASE CLOSTRIDIUM HIST. 30 GRAMS TUBE TP SCH (09:17)
[2016-12-23] MEDS: PANTOPRAZOLE SOD 40 MG SUSPENSION PACKET NGT SCH (09:17)
--- NOTE | 2016-12-23 13:43 | PN ---
Progress Note, Physician History of Present Illness: pulmonary poorly responsive,nad,-resp distress - Current Medication List Current Medications: Active Medications Aspirin (Asa -) 81 mg PO DAILY [facility] Last Admin: 12/23/16 09:10 Dose: 81 mg Collagenase (Santyl -) 1 applic TP DAILY [facility] Last Admin: 12/23/16 09:17 Dose: 1 applic Heparin Sodium (Porcine) (Heparin -) 5,000 unit SQ TID [facility] Last Admin: 12/23/16 05:54 Dose: 5,000 unit Ceftazidime 2 gm/ Sodium (Chloride) 100 mls @ 200 mls/hr IVPB Q8H-IV [facility] Last Admin: 12/23/16 09:17 Dose: 200 mls/hr Insulin Aspart (Novolog Vial Sliding Scale -) 1 vial SQ Q6HPO [facility] PRN Reason: Protocol Last Admin: 12/23/16 05:53 Dose: 2 units Pantoprazole Sodium (Protonix Packets For Oral Suspension -) 40 mg NGT DAILY [facility] Last Admin: 12/23/16 09:17 Dose: 40 mg Scopolamine HBr (Transderm-Scop -) 1 patch TD Q3D@1000 [facility] Last Admin: 12/22/16 10:37 Dose: 1 patch - Objective Vital Signs: Vital Signs Temperature 98.6 F 12/23/16 05:30 Pulse Rate 84 12/23/16 10:00 Respiratory Rate 22 12/23/16 10:00 Blood Pressure 136/70 12/23/16 10:00 O2 Sat by Pulse Oximetry (%) 91 L 12/23/16 09:20 Constitutional: Yes: Thin, Other (poorly responsive) Eyes: Yes: WNL HENT: Yes: WNL Neck: Yes: Supple (trach) Cardiovascular: Yes: Pulse Irregular, S1, S2 Respiratory: Yes: Rhonchi (few rhonchi) Gastrointestinal: Yes: Normal Bowel Sounds, Soft Extremities: Yes: WNL Edema: No Labs: - ....Imaging Chest X-ray: Report Reviewed, Image Reviewed Problem List - Problems (1) Cerebrovascular small vessel disease Code(s): I67.9 - CEREBROVASCULAR DISEASE, UNSPECIFIED (2) Cholecystitis Code(s): K81.9 - CHOLECYSTITIS, UNSPECIFIED (3) Pneumonia Code(s): J18.9 - PNEUMONIA, UNSPECIFIED ORGANISM Qualifiers: Pneumonia type: due to Pseudomonas Laterality: left Lung location: lower lobe of lung Qualified Code(s): J15.1 - Pneumonia due to Pseudomonas (4) Respiratory failure Code(s): J96.90 - RESPIRATORY FAILURE, UNSP, UNSP W HYPOXIA OR HYPERCAPNIA Qualifiers: Chronicity: acute Respiratory failure complication: hypoxia Qualified Code(s): J96.01 - Acute respiratory failure with hypoxia (5) Acute and chronic respiratory failure Code(s): J96.20 - ACUTE AND CHR RESP FAILURE, UNSP W HYPOXIA OR HYPERCAPNIA (6) Afib Code(s): I48.91 - UNSPECIFIED ATRIAL FIBRILLATION (7) Acute on chronic respiratory failure with hypoxia Code(s): J96.21 - ACUTE AND CHRONIC RESPIRATORY FAILURE WITH HYPOXIA Assessment/Plan A/P Acute on Chronic Hypoxic Respiratory Failure improving UTI r/o Pneumonia Sepsis Tracheomalacia HTN CAD DM Atrial Fibrillation Dementia - antibiotics - trach collar - O2 to keep SpO2 >90% - aspiration precautions - IVF - enteral feeds - DVT prophylaxis - tracheal suctioning - chest x-ray today DR UNDERWOOD
--- NOTE | 2016-12-23 23:44 | PN ---
Progress Note, Physician - Current Medication List Current Medications: Active Medications Aspirin (Asa -) 81 mg PO DAILY [facility] Last Admin: 12/23/16 09:10 Dose: 81 mg Collagenase (Santyl -) 1 applic TP DAILY [facility] Last Admin: 12/23/16 09:17 Dose: 1 applic Insulin Aspart (Novolog Vial Sliding Scale -) 1 vial SQ Q6HPO [facility] PRN Reason: Protocol Last Admin: 12/23/16 23:24 Dose: 4 units Pantoprazole Sodium (Protonix Packets For Oral Suspension -) 40 mg NGT DAILY [facility] Last Admin: 12/23/16 09:17 Dose: 40 mg Scopolamine HBr (Transderm-Scop -) 1 patch TD Q3D@1000 [facility] Last Admin: 12/22/16 10:37 Dose: 1 patch - Objective Vital Signs: Vital Signs Temperature 98.8 F 12/23/16 14:29 Pulse Rate 99 H 12/23/16 14:29 Respiratory Rate 22 12/23/16 14:29 Blood Pressure 154/62 12/23/16 14:29 O2 Sat by Pulse Oximetry (%) 94 L 12/23/16 21:00 Constitutional: Yes: No Distress Eyes: Yes: WNL Neck: Yes: Other ((+) trach) Cardiovascular: Yes: Pulse Irregular Respiratory: Yes: Diminished Gastrointestinal: Yes: WNL, Normal Bowel Sounds, Soft, Other ((+) PEG) Labs: CBC, BMP 12/22/16 06:40 12/22/16 06:40 INR, PTT INR 1.21 (0.82-1.09) H 12/15/16 19:24 Problem List - Problems (1) Acute and chronic respiratory failure Assessment/Plan: Repeat CXR showed slight improvement ?LLL pneumonia Cont IV ceftazidime Cont nebulizers Trach care Code(s): J96.20 - ACUTE AND CHR RESP FAILURE, UNSP W HYPOXIA OR HYPERCAPNIA (2) Sepsis Assessment/Plan: Cont IV ceftazidime Pt w/ poor prognosis and remains lethargic Code(s): A41.9 - SEPSIS, UNSPECIFIED ORGANISM Qualifiers: Sepsis type: Pseudomonas Qualified Code(s): A41.52 - Sepsis due to Pseudomonas (3) Afib Code(s): I48.91 - UNSPECIFIED ATRIAL FIBRILLATION (4) HTN (hypertension) Code(s): I10 - ESSENTIAL (PRIMARY) HYPERTENSION (5) Diabetes Code(s): E11.9 - TYPE 2 DIABETES MELLITUS WITHOUT COMPLICATIONS (6) CAD (coronary artery disease) Code(s): I25.10 - ATHSCL HEART DISEASE OF [place] CORONARY ARTERY W/O ANG PCTRS (7) Cholecystitis with cholelithiasis Code(s): K80.10 - CALCULUS OF GALLBLADDER W CHRONIC CHOLECYST W/O OBSTRUCTION Qualifiers: Cholelithiasis location: gallbladder Cholecystitis acuity: acute Biliary obstruction: without biliary obstruction Qualified Code(s): K80.00 - Calculus of gallbladder with acute cholecystitis without obstruction (8) Alzheimer disease Code(s): G30.9 - ALZHEIMER'S DISEASE, UNSPECIFIED Qualifiers: Alzheimer's disease onset: early-onset Dementia behavioral disturbance : without behavioral disturbance Qualified Code(s): G30.0 - Alzheimer's disease with early onset; F02.81 - Dementia in other diseases classified elsewhere with behavioral disturbance
[2016-12-24] MEDS: INSULIN SLIDING SCALE (NOVOLOG) 1 VIAL SQ SCH ×3 (05:31→17:34)
[2016-12-24] MEDS ORDERED: INSULIN (NOVOLOG) ASPART 100 UNITS/ML 10ML VIAL ONE (05:37)
[2016-12-24 07:17] LABS: EOSINOPHIL 5.5 % (0-4.5); MCH 26.8 pg (25.7-33.7); MCHC 32.4 g/dl (32.0-35.9); MEAN CELL VOLUME 82.8 fl (80-96); MEAN PLT VOLUME 8.1 fl (7.5-11.1); NEUTROPHILS 76.1 % (42.8-82.8); PLATELET COUNT 404 K/MM3 (134-434); RDW 18.1 % (11.9-15.9); WHITE BLOOD COUNT 10.6 K/mm3 (4.0-10.0)
[2016-12-24 07:34] LABS: ALBUMIN 2.1 g/dl (3.4-5.0); ANION GAP 7 (8-16); BILIRUBIN,TOTAL 0.3 mg/dL (0.2-1.0); CALCIUM 9.1 mg/dL (8.5-10.1); CO2 31 mmol/L (21-32); CREATININE 0.8 mg/dL (0.7-1.3); GLUCOSE,RANDOM 137 mg/dL (74-106); SGOT/AST 23 U/L (15-37); SGPT/ALT 21 U/L (12-78)
[2016-12-24 07:35] LABS: ALK PHOS 129 U/L (45-117)
[2016-12-24] MEDS: ASPIRIN 81 MG CHEWABLE TABLETS PO SCH (10:45)
[2016-12-24] MEDS: PANTOPRAZOLE SOD 40 MG SUSPENSION PACKET NGT SCH (10:45)
[2016-12-24] MEDS: COLLAGENASE CLOSTRIDIUM HIST. 30 GRAMS TUBE TP SCH (10:46)
--- NOTE | 2016-12-24 11:00 | PN ---
Progress Note (short form) - Note Progress Note: nad resting comfortably Vital Signs Period Temp Pulse Resp BP Sys/Machado Pulse Ox Last 24 Hr 98.2 F-98.8 F 80-99 20-22 132-154/62-78 94-98 cor-rrr lungs decreased bs at ases abd soft,nt +ruq biliary drain ext no edema CBC, BMP 12/24/16 06:20 12/24/16 06:20 Microbiology 12/15/16 19:23 Blood - Peripheral Venous Blood Culture - Final NO GROWTH AFTER 5 DAYS INCUBATION 12/15/16 19:23 Blood - Peripheral Venous Blood Culture - Final NO GROWTH AFTER 5 DAYS INCUBATION 12/16/16 06:30 Sputum - Endotracheal Suction W/O Vent Gram Stain - Final 12/16/16 06:30 Sputum - Endotracheal Suction W/O Vent Sputum Culture - Final Pseudomonas Aeruginosa 12/15/16 19:23 Urine - Urine - Catheterized Urine Culture - Final Yeast Like Organism a/p chronic resp failure worsening LLL infiltrate pen allergy repeat cxray day #9 [facility] Problem List - Problems (1) Pneumonia Code(s): J18.9 - PNEUMONIA, UNSPECIFIED ORGANISM (2) Penicillin allergy Code(s): Z88.0 - ALLERGY STATUS TO PENICILLIN
[2016-12-24] MEDS: CEFTAZIDIME PENTAHYDRATE 2 GM in DEXTROSE 5%-WATER - 100 ML IVPB SCH ×2 (13:50→17:35)
--- NOTE | 2016-12-24 15:39 | PN ---
Progress Note, Physician History of Present Illness: pulmonary no change,poorly responsive on trach collar,-resp distress - Current Medication List Current Medications: Active Medications Aspirin (Asa -) 81 mg PO DAILY [facility] Last Admin: 12/24/16 10:45 Dose: 81 mg Collagenase (Santyl -) 1 applic TP DAILY [facility] Last Admin: 12/24/16 10:46 Dose: 1 applic Ceftazidime 2 gm/ Dextrose 100 mls @ 200 mls/hr IVPB Q8H-IV [facility] PRN Reason: Protocol Last Admin: 12/24/16 13:50 Dose: 200 mls/hr Insulin Aspart (Novolog Vial Sliding Scale -) 1 vial SQ Q6HPO [facility] PRN Reason: Protocol Last Admin: 12/24/16 12:10 Dose: 2 units Pantoprazole Sodium (Protonix Packets For Oral Suspension -) 40 mg NGT DAILY [facility] Last Admin: 12/24/16 10:45 Dose: 40 mg Scopolamine HBr (Transderm-Scop -) 1 patch TD Q3D@1000 [facility] Last Admin: 12/22/16 10:37 Dose: 1 patch - Objective Vital Signs: Vital Signs Temperature 98.2 F 12/24/16 09:00 Pulse Rate 92 H 12/24/16 09:00 Respiratory Rate 20 12/24/16 09:00 Blood Pressure 140/70 12/24/16 09:00 O2 Sat by Pulse Oximetry (%) 98 12/24/16 09:00 Constitutional: Yes: Thin, Other (poorly responsive) Eyes: Yes: WNL HENT: Yes: WNL Neck: Yes: WNL Cardiovascular: Yes: Pulse Irregular, S1, S2 Respiratory: Yes: Rhonchi (few rhonchi) Gastrointestinal: Yes: Normal Bowel Sounds, Soft Extremities: Yes: WNL Edema: No Labs: CBC, BMP 12/24/16 06:20 12/24/16 06:20 INR, PTT INR 1.21 (0.82-1.09) H 12/15/16 19:24 Problem List - Problems (1) Cerebrovascular small vessel disease Code(s): I67.9 - CEREBROVASCULAR DISEASE, UNSPECIFIED (2) Cholecystitis Code(s): K81.9 - CHOLECYSTITIS, UNSPECIFIED (3) Pneumonia Code(s): J18.9 - PNEUMONIA, UNSPECIFIED ORGANISM Qualifiers: Pneumonia type: due to Pseudomonas Laterality: left Lung location: lower lobe of lung Qualified Code(s): J15.1 - Pneumonia due to Pseudomonas (4) Respiratory failure Code(s): J96.90 - RESPIRATORY FAILURE, UNSP, UNSP W HYPOXIA OR HYPERCAPNIA Qualifiers: Chronicity: acute Respiratory failure complication: hypoxia Qualified Code(s): J96.01 - Acute respiratory failure with hypoxia (5) Acute and chronic respiratory failure Code(s): J96.20 - ACUTE AND CHR RESP FAILURE, UNSP W HYPOXIA OR HYPERCAPNIA (6) Afib Code(s): I48.91 - UNSPECIFIED ATRIAL FIBRILLATION (7) Acute on chronic respiratory failure with hypoxia Code(s): J96.21 - ACUTE AND CHRONIC RESPIRATORY FAILURE WITH HYPOXIA Assessment/Plan A/P Acute on Chronic Hypoxic Respiratory Failure improving UTI r/o Pneumonia Sepsis Tracheomalacia HTN CAD DM Atrial Fibrillation Dementia - antibiotics - trach collar - O2 to keep SpO2 >90% - aspiration precautions - IVF - enteral feeds - DVT prophylaxis - tracheal suctioning DR UNDERWOOD
--- NOTE | 2016-12-25 00:03 | PN ---
Progress Note, Physician History of Present Illness: No new change - Current Medication List Current Medications: Active Medications Aspirin (Asa -) 81 mg PO DAILY [facility] Last Admin: 12/24/16 10:45 Dose: 81 mg Collagenase (Santyl -) 1 applic TP DAILY [facility] Last Admin: 12/24/16 10:46 Dose: 1 applic Ceftazidime 2 gm/ Dextrose 100 mls @ 200 mls/hr IVPB Q8H-IV [facility] PRN Reason: Protocol Last Admin: 12/24/16 17:35 Dose: 200 mls/hr Insulin Aspart (Novolog Vial Sliding Scale -) 1 vial SQ Q6HPO [facility] PRN Reason: Protocol Last Admin: 12/24/16 17:34 Dose: 6 units Pantoprazole Sodium (Protonix Packets For Oral Suspension -) 40 mg NGT DAILY [facility] Last Admin: 12/24/16 10:45 Dose: 40 mg Scopolamine HBr (Transderm-Scop -) 1 patch TD Q3D@1000 [facility] Last Admin: 12/22/16 10:37 Dose: 1 patch - Objective Vital Signs: Vital Signs Temperature 98.2 F 12/24/16 09:00 Pulse Rate 92 H 12/24/16 09:00 Respiratory Rate 20 12/24/16 09:00 Blood Pressure 140/70 12/24/16 09:00 O2 Sat by Pulse Oximetry (%) 98 12/24/16 09:00 Constitutional: Yes: No Distress Eyes: Yes: WNL HENT: Yes: WNL Neck: Yes: Other ((+) trach) Cardiovascular: Yes: WNL Respiratory: Yes: WNL, Regular, CTA Bilaterally Gastrointestinal: Yes: WNL, Normal Bowel Sounds, Soft, Other ((+) PEG) Labs: CBC, BMP 12/24/16 06:20 12/24/16 06:20 INR, PTT INR 1.21 (0.82-1.09) H 12/15/16 19:24 Problem List - Problems (1) Functional quadriplegia Code(s): R53.2 - FUNCTIONAL QUADRIPLEGIA (2) Acute and chronic respiratory failure Assessment/Plan: Repeat CXR showed slight improvement ?LLL pneumonia Cont IV ceftazidime Cont nebulizers Trach care Code(s): J96.20 - ACUTE AND CHR RESP FAILURE, UNSP W HYPOXIA OR HYPERCAPNIA (3) Sepsis Assessment/Plan: Cont IV ceftazidime Pt w/ poor prognosis and remains lethargic Code(s): A41.9 - SEPSIS, UNSPECIFIED ORGANISM Qualifiers: Sepsis type: Pseudomonas Qualified Code(s): A41.52 - Sepsis due to Pseudomonas (4) Afib Code(s): I48.91 - UNSPECIFIED ATRIAL FIBRILLATION (5) HTN (hypertension) Code(s): I10 - ESSENTIAL (PRIMARY) HYPERTENSION (6) Diabetes Code(s): E11.9 - TYPE 2 DIABETES MELLITUS WITHOUT COMPLICATIONS (7) CAD (coronary artery disease) Code(s): I25.10 - ATHSCL HEART DISEASE OF [place] CORONARY ARTERY W/O ANG PCTRS (8) Cholecystitis with cholelithiasis Code(s): K80.10 - CALCULUS OF GALLBLADDER W CHRONIC CHOLECYST W/O OBSTRUCTION Qualifiers: Cholelithiasis location: gallbladder Cholecystitis acuity: acute Biliary obstruction: without biliary obstruction Qualified Code(s): K80.00 - Calculus of gallbladder with acute cholecystitis without obstruction (9) Alzheimer disease Code(s): G30.9 - ALZHEIMER'S DISEASE, UNSPECIFIED Qualifiers: Alzheimer's disease onset: early-onset Dementia behavioral disturbance : without behavioral disturbance Qualified Code(s): G30.0 - Alzheimer's disease with early onset; F02.81 - Dementia in other diseases classified elsewhere with behavioral disturbance
[2016-12-25] MEDS ORDERED: INSULIN (NOVOLOG) ASPART 100 UNITS/ML 10ML VIAL ONE ×2 (00:41→16:30)
[2016-12-25] MEDS: INSULIN SLIDING SCALE (NOVOLOG) 1 VIAL SQ SCH ×5 (00:44→23:43)
[2016-12-25] MEDS: CEFTAZIDIME PENTAHYDRATE 2 GM in DEXTROSE 5%-WATER - 100 ML IVPB SCH ×3 (01:28→17:17)
[2016-12-25] MEDS: SCOPOLAMINE HYDROBROMIDE 1 PATCH PATCH.TD72 TD SCH (10:20)
[2016-12-25] MEDS: ASPIRIN 81 MG CHEWABLE TABLETS PO SCH (10:20)
[2016-12-25] MEDS: PANTOPRAZOLE SOD 40 MG SUSPENSION PACKET NGT SCH (10:21)
[2016-12-25] MEDS: COLLAGENASE CLOSTRIDIUM HIST. 30 GRAMS TUBE TP SCH (10:21)
--- NOTE | 2016-12-25 10:39 | PN ---
Progress Note (short form) - Note Progress Note: PULMONARY Pt nonverbal. no fevers recorded. Last Vital Signs Temp Pulse Resp BP Pulse Ox 97.7 F 87 20 158/87 96 12/25/16 06:00 12/25/16 06:00 12/25/16 06:00 12/25/16 06:00 12/25/16 03:45 Gen: breathing nonlabored Heart: RRR Lung: scattered rhonchi Abd: soft, nontender Ext: no edema CBC, BMP 12/24/16 06:20 12/24/16 06:20 Active Medications Aspirin (Asa -) 81 mg PO DAILY [facility] Last Admin: 12/25/16 10:20 Dose: 81 mg Collagenase (Santyl -) 1 applic TP DAILY [facility] Last Admin: 12/25/16 10:21 Dose: 1 applic Ceftazidime 2 gm/ Dextrose 100 mls @ 200 mls/hr IVPB Q8H-IV [facility] PRN Reason: Protocol Last Admin: 12/25/16 10:20 Dose: 200 mls/hr Insulin Aspart (Novolog Vial Sliding Scale -) 1 vial SQ Q6HPO [facility] PRN Reason: Protocol Last Admin: 12/25/16 06:29 Dose: 4 units Pantoprazole Sodium (Protonix Packets For Oral Suspension -) 40 mg NGT DAILY [facility] Last Admin: 12/25/16 10:21 Dose: 40 mg Scopolamine HBr (Transderm-Scop -) 1 patch TD Q3D@1000 [facility] Last Admin: 12/25/16 10:20 Dose: 1 patch A/P Acute on Chronic Hypoxic Respiratory Failure improving UTI Pneumonia Sepsis Tracheomalacia HTN CAD DM Atrial Fibrillation Dementia - antibiotics per ID - tolerating trach collar - O2 to keep SpO2 >90% - aspiration precautions - IVF - enteral feeds - DVT prophylaxis
--- NOTE | 2016-12-25 13:27 | PN ---
Progress Note (short form) - Note Progress Note: nad resting comfortably Vital Signs Period Temp Pulse Resp BP Sys/Machado Pulse Ox Last 24 Hr 97.7 F 74-95 18-20 120-158/70-87 94-96 cor-rrr llungs decreased bs at bases abd soft,nt ext no edema CBC, BMP 12/24/16 06:20 12/24/16 06:20 a/p chronic resp failure worsening LLL infiltrate pen allergy day #10 for[facility] d/c antibiotics in am and observe Problem List - Problems (1) Pneumonia Code(s): J18.9 - PNEUMONIA, UNSPECIFIED ORGANISM Qualifiers: Pneumonia type: due to Pseudomonas Laterality: left Lung location: lower lobe of lung Qualified Code(s): J15.1 - Pneumonia due to Pseudomonas (2) Penicillin allergy Code(s): Z88.0 - ALLERGY STATUS TO PENICILLIN
--- NOTE | 2016-12-25 23:45 | PN ---
Progress Note, Physician - Current Medication List Current Medications: Active Medications Aspirin (Asa -) 81 mg PO DAILY [facility] Last Admin: 12/25/16 10:20 Dose: 81 mg Collagenase (Santyl -) 1 applic TP DAILY [facility] Last Admin: 12/25/16 10:21 Dose: 1 applic Ceftazidime 2 gm/ Dextrose 100 mls @ 200 mls/hr IVPB Q8H-IV [facility] PRN Reason: Protocol Stop: 12/26/16 09:00 Last Admin: 12/25/16 17:17 Dose: 200 mls/hr Insulin Aspart (Novolog Vial Sliding Scale -) 1 vial SQ Q6HPO [facility] PRN Reason: Protocol Last Admin: 12/25/16 23:43 Dose: 4 units Pantoprazole Sodium (Protonix Packets For Oral Suspension -) 40 mg NGT DAILY [facility] Last Admin: 12/25/16 10:21 Dose: 40 mg Scopolamine HBr (Transderm-Scop -) 1 patch TD Q3D@1000 [facility] Last Admin: 12/25/16 10:20 Dose: 1 patch - Objective Vital Signs: Vital Signs Temperature 98.2 F 12/25/16 19:01 Pulse Rate 72 12/25/16 22:00 Respiratory Rate 18 12/25/16 22:00 Blood Pressure 138/84 12/25/16 22:00 O2 Sat by Pulse Oximetry (%) 94 L 12/25/16 10:58 Labs: CBC, BMP 12/24/16 06:20 12/24/16 06:20 INR, PTT INR 1.21 (0.82-1.09) H 12/15/16 19:24 Problem List - Problems (1) Functional quadriplegia Code(s): R53.2 - FUNCTIONAL QUADRIPLEGIA (2) Acute and chronic respiratory failure Code(s): J96.20 - ACUTE AND CHR RESP FAILURE, UNSP W HYPOXIA OR HYPERCAPNIA (3) Sepsis Code(s): A41.9 - SEPSIS, UNSPECIFIED ORGANISM Qualifiers: Sepsis type: Pseudomonas Qualified Code(s): A41.52 - Sepsis due to Pseudomonas (4) Afib Code(s): I48.91 - UNSPECIFIED ATRIAL FIBRILLATION (5) HTN (hypertension) Code(s): I10 - ESSENTIAL (PRIMARY) HYPERTENSION (6) Diabetes Code(s): E11.9 - TYPE 2 DIABETES MELLITUS WITHOUT COMPLICATIONS (7) CAD (coronary artery disease) Code(s): I25.10 - ATHSCL HEART DISEASE OF [place] CORONARY ARTERY W/O ANG PCTRS (8) Cholecystitis with cholelithiasis Code(s): K80.10 - CALCULUS OF GALLBLADDER W CHRONIC CHOLECYST W/O OBSTRUCTION Qualifiers: Cholelithiasis location: gallbladder Cholecystitis acuity: acute Biliary obstruction: without biliary obstruction Qualified Code(s): K80.00 - Calculus of gallbladder with acute cholecystitis without obstruction (9) Alzheimer disease Code(s): G30.9 - ALZHEIMER'S DISEASE, UNSPECIFIED Qualifiers: Alzheimer's disease onset: early-onset Dementia behavioral disturbance : without behavioral disturbance Qualified Code(s): G30.0 - Alzheimer's disease with early onset; F02.81 - Dementia in other diseases classified elsewhere with behavioral disturbance
[2016-12-26] MEDS ORDERED: PT OWN MED DRAWER 7, Y5N ONE (01:10)
[2016-12-26] MEDS: CEFTAZIDIME PENTAHYDRATE 2 GM in DEXTROSE 5%-WATER - 100 ML IVPB SCH (01:19)
[2016-12-26] MEDS: INSULIN SLIDING SCALE (NOVOLOG) 1 VIAL SQ SCH ×4 (05:42→23:16)
[2016-12-26] MEDS: COLLAGENASE CLOSTRIDIUM HIST. 30 GRAMS TUBE TP SCH (09:53)
[2016-12-26] MEDS: ASPIRIN 81 MG CHEWABLE TABLETS PO SCH (09:53)
[2016-12-26] MEDS: PANTOPRAZOLE SOD 40 MG SUSPENSION PACKET NGT SCH (09:53)
--- NOTE | 2016-12-26 12:06 | PN ---
Progress Note (short form) - Note Progress Note: PULMONARY CHART REVIEWED VSS/AFEBRILE RESPONDS TO DEEP TACTILE STIMULI DIMINISHED B/L BREATH SOUNDS S1S2 BS+ NO EDEMA LABS/MEDS/NOTES/IMAGING REVIEWED Acute on Chronic Hypoxic Respiratory Failure improving UTI Pneumonia Sepsis Tracheomalacia HTN CAD DM Atrial Fibrillation Dementia - antibiotics per ID - tolerating trach collar - O2 to keep SpO2 >90% - aspiration precautions - IVF - enteral feeds - DVT prophylaxis Bernard CAMPA MD
--- NOTE | 2016-12-26 15:20 | PN ---
Progress Note (short form) - Note Progress Note: nad resting comfortably antibiotics d/paramjit Vital Signs Period Temp Pulse Resp BP Sys/[place] Pulse Ox Last 24 Hr 98.2 F-98.3 F 72-98 18-20 136-153/74-84 98 cor-rrr lungs decreased bs at bases abd soft,nt +GT, _biliary drain ext no edema CBC, BMP 12/24/16 06:20 12/24/16 06:20 a/p chronic resp failure s/p 10 days of antibiotics for HAP should have f/u cxray in 2 weeks should have chest PT at [facility] off antibiotics afebrile please call back if needed Problem List - Problems (1) Pneumonia Code(s): J18.9 - PNEUMONIA, UNSPECIFIED ORGANISM Qualifiers: Pneumonia type: due to Pseudomonas Laterality: left Lung location: lower lobe of lung Qualified Code(s): J15.1 - Pneumonia due to Pseudomonas (2) Penicillin allergy Code(s): Z88.0 - ALLERGY STATUS TO PENICILLIN
--- NOTE | 2016-12-26 22:45 | PN ---
Progress Note, Physician - Current Medication List Current Medications: Active Medications Aspirin (Asa -) 81 mg PO DAILY [facility] Last Admin: 12/26/16 09:53 Dose: 81 mg Collagenase (Santyl -) 1 applic TP DAILY [facility] Last Admin: 12/26/16 09:53 Dose: 1 applic Insulin Aspart (Novolog Vial Sliding Scale -) 1 vial SQ Q6HPO [facility] PRN Reason: Protocol Last Admin: 12/26/16 17:15 Dose: 4 units Pantoprazole Sodium (Protonix Packets For Oral Suspension -) 40 mg NGT DAILY [facility] Last Admin: 12/26/16 09:53 Dose: 40 mg Scopolamine HBr (Transderm-Scop -) 1 patch TD Q3D@1000 [facility] Last Admin: 12/25/16 10:20 Dose: 1 patch - Objective Vital Signs: Vital Signs Temperature 97.4 F L 12/26/16 19:05 Pulse Rate 82 12/26/16 22:00 Respiratory Rate 18 12/26/16 22:00 Blood Pressure 132/68 12/26/16 22:00 O2 Sat by Pulse Oximetry (%) 96 12/26/16 21:00 Neck: Yes: Other ((+) trach) Cardiovascular: Yes: WNL, Regular Rate and Rhythm Respiratory: Yes: WNL, Regular, CTA Bilaterally Gastrointestinal: Yes: WNL, Normal Bowel Sounds, Soft Labs: CBC, BMP 12/24/16 06:20 12/24/16 06:20 INR, PTT INR 1.21 (0.82-1.09) H 12/15/16 19:24 Problem List - Problems (1) Sepsis Assessment/Plan: Pt is now off antibxs DC planning to SNF in am Code(s): A41.9 - SEPSIS, UNSPECIFIED ORGANISM Qualifiers: Sepsis type: Pseudomonas Qualified Code(s): A41.52 - Sepsis due to Pseudomonas (2) Acute and chronic respiratory failure Code(s): J96.20 - ACUTE AND CHR RESP FAILURE, UNSP W HYPOXIA OR HYPERCAPNIA (3) Functional quadriplegia Code(s): R53.2 - FUNCTIONAL QUADRIPLEGIA (4) Afib Code(s): I48.91 - UNSPECIFIED ATRIAL FIBRILLATION (5) HTN (hypertension) Code(s): I10 - ESSENTIAL (PRIMARY) HYPERTENSION (6) Diabetes Code(s): E11.9 - TYPE 2 DIABETES MELLITUS WITHOUT COMPLICATIONS (7) CAD (coronary artery disease) Code(s): I25.10 - ATHSCL HEART DISEASE OF [place] CORONARY ARTERY W/O ANG PCTRS (8) Cholecystitis with cholelithiasis Code(s): K80.10 - CALCULUS OF GALLBLADDER W CHRONIC CHOLECYST W/O OBSTRUCTION Qualifiers: Cholelithiasis location: gallbladder Cholecystitis acuity: acute Biliary obstruction: without biliary obstruction Qualified Code(s): K80.00 - Calculus of gallbladder with acute cholecystitis without obstruction (9) Alzheimer disease Code(s): G30.9 - ALZHEIMER'S DISEASE, UNSPECIFIED Qualifiers: Alzheimer's disease onset: early-onset Dementia behavioral disturbance : without behavioral disturbance Qualified Code(s): G30.0 - Alzheimer's disease with early onset; F02.81 - Dementia in other diseases classified elsewhere with behavioral disturbance
[2016-12-26] MEDS ORDERED: INSULIN (NOVOLOG) ASPART 100 UNITS/ML 10ML VIAL ONE (23:09)
[2016-12-27] MEDS: INSULIN SLIDING SCALE (NOVOLOG) 1 VIAL SQ SCH ×3 (05:21→17:22)
[2016-12-27] MEDS: PANTOPRAZOLE SOD 40 MG SUSPENSION PACKET NGT SCH (10:06)
[2016-12-27] MEDS: ASPIRIN 81 MG CHEWABLE TABLETS PO SCH (10:06)
[2016-12-27] MEDS: COLLAGENASE CLOSTRIDIUM HIST. 30 GRAMS TUBE TP SCH (10:07)
--- NOTE | 2016-12-27 10:49 | PN ---
Progress Note (short form) - Note Progress Note: PULMONARY Pt nonverbal. no fevers recorded. More alert, eye opens when stimulated. Last Vital Signs Temp Pulse Resp BP Pulse Ox 98.2 F 97 H 24 126/76 98 12/27/16 09:15 12/27/16 10:25 12/27/16 09:15 12/27/16 09:15 12/27/16 10:25 Gen: breathing nonlabored Heart: RRR Lung: decreased breath sounds at the bases Abd: soft, nontender Ext: no edema CBC, BMP 12/24/16 06:20 12/24/16 06:20 Active Medications Aspirin (Asa -) 81 mg PO DAILY [facility] Last Admin: 12/27/16 10:06 Dose: 81 mg Collagenase (Santyl -) 1 applic TP DAILY [facility] Last Admin: 12/27/16 10:07 Dose: Not Given Insulin Aspart (Novolog Vial Sliding Scale -) 1 vial SQ Q6HPO [facility] PRN Reason: Protocol Last Admin: 12/27/16 05:21 Dose: 4 units Pantoprazole Sodium (Protonix Packets For Oral Suspension -) 40 mg NGT DAILY [facility] Last Admin: 12/27/16 10:06 Dose: 40 mg Scopolamine HBr (Transderm-Scop -) 1 patch TD Q3D@1000 [facility] Last Admin: 12/25/16 10:20 Dose: 1 patch A/P Acute on Chronic Hypoxic Respiratory Failure improved UTI treated Pneumonia resolved Sepsis Tracheomalacia Atelectasis HTN CAD DM Atrial Fibrillation Dementia - completed antibiotics - tolerating trach collar - O2 to keep SpO2 >90% - aspiration precautions - IVF - enteral feeds - DVT prophylaxis - d/c planning
[2016-12-28] MEDS ORDERED: INSULIN (NOVOLOG) ASPART 100 UNITS/ML 10ML VIAL ONE (00:03)
[2016-12-28] MEDS: INSULIN SLIDING SCALE (NOVOLOG) 1 VIAL SQ SCH ×5 (00:05→23:53)
--- NOTE | 2016-12-28 00:35 | PN ---
Progress Note, Physician History of Present Illness: No new change Pt seen and examined 12/27/16 however note is being entered now - Current Medication List Current Medications: Active Medications Aspirin (Asa -) 81 mg PO DAILY [facility] Last Admin: 12/27/16 10:06 Dose: 81 mg Collagenase (Santyl -) 1 applic TP DAILY [facility] Last Admin: 12/27/16 10:07 Dose: Not Given Insulin Aspart (Novolog Vial Sliding Scale -) 1 vial SQ Q6HPO [facility] PRN Reason: Protocol Last Admin: 12/28/16 00:05 Dose: 4 units Pantoprazole Sodium (Protonix Packets For Oral Suspension -) 40 mg NGT DAILY [facility] Last Admin: 12/27/16 10:06 Dose: 40 mg Scopolamine HBr (Transderm-Scop -) 1 patch TD Q3D@1000 [facility] Last Admin: 12/25/16 10:20 Dose: 1 patch - Objective Vital Signs: Vital Signs Temperature 98.7 F 12/27/16 22:00 Pulse Rate 94 H 12/27/16 22:00 Respiratory Rate 20 12/27/16 22:00 Blood Pressure 144/72 12/27/16 22:00 O2 Sat by Pulse Oximetry (%) 96 12/27/16 21:00 Labs: CBC, BMP 12/24/16 06:20 12/24/16 06:20 INR, PTT INR 1.21 (0.82-1.09) H 12/15/16 19:24 Problem List - Problems (1) Sepsis Code(s): A41.9 - SEPSIS, UNSPECIFIED ORGANISM Qualifiers: Sepsis type: Pseudomonas Qualified Code(s): A41.52 - Sepsis due to Pseudomonas (2) Acute and chronic respiratory failure Code(s): J96.20 - ACUTE AND CHR RESP FAILURE, UNSP W HYPOXIA OR HYPERCAPNIA (3) Functional quadriplegia Code(s): R53.2 - FUNCTIONAL QUADRIPLEGIA (4) Afib Code(s): I48.91 - UNSPECIFIED ATRIAL FIBRILLATION (5) HTN (hypertension) Code(s): I10 - ESSENTIAL (PRIMARY) HYPERTENSION (6) Diabetes Code(s): E11.9 - TYPE 2 DIABETES MELLITUS WITHOUT COMPLICATIONS (7) CAD (coronary artery disease) Code(s): I25.10 - ATHSCL HEART DISEASE OF [place] CORONARY ARTERY W/O ANG PCTRS (8) Cholecystitis with cholelithiasis Code(s): K80.10 - CALCULUS OF GALLBLADDER W CHRONIC CHOLECYST W/O OBSTRUCTION Qualifiers: Cholelithiasis location: gallbladder Cholecystitis acuity: acute Biliary obstruction: without biliary obstruction Qualified Code(s): K80.00 - Calculus of gallbladder with acute cholecystitis without obstruction (9) Alzheimer disease Code(s): G30.9 - ALZHEIMER'S DISEASE, UNSPECIFIED Qualifiers: Alzheimer's disease onset: early-onset Dementia behavioral disturbance : without behavioral disturbance Qualified Code(s): G30.0 - Alzheimer's disease with early onset; F02.81 - Dementia in other diseases classified elsewhere with behavioral disturbance
[2016-12-28] MEDS: ASPIRIN 81 MG CHEWABLE TABLETS PO SCH (11:42)
[2016-12-28] MEDS: SCOPOLAMINE HYDROBROMIDE 1 PATCH PATCH.TD72 TD SCH (11:43)
[2016-12-28] MEDS: PANTOPRAZOLE SOD 40 MG SUSPENSION PACKET NGT SCH (11:44)
[2016-12-28] MEDS: COLLAGENASE CLOSTRIDIUM HIST. 30 GRAMS TUBE TP SCH (11:45)
[2016-12-29] MEDS: INSULIN SLIDING SCALE (NOVOLOG) 1 VIAL SQ SCH (06:16)
[2016-12-29 07:36] LABS: BASOPHIL 1.5 % (0-2.0); EOSINOPHIL 7.9 % (0-4.5); MCH 26.8 pg (25.7-33.7); MCHC 32.4 g/dl (32.0-35.9); MEAN CELL VOLUME 82.5 fl (80-96); MEAN PLT VOLUME 8.6 fl (7.5-11.1); NEUTROPHILS 68.8 % (42.8-82.8); PLATELET COUNT 313 K/MM3 (134-434); RDW 17.9 % (11.9-15.9); WHITE BLOOD COUNT 7.5 K/mm3 (4.0-10.0)
[2016-12-29 08:06] LABS: ALBUMIN 2.4 g/dl (3.4-5.0); ANION GAP 8 (8-16); CALCIUM 9.4 mg/dL (8.5-10.1); CO2 33 mmol/L (21-32); GLUCOSE,RANDOM 182 mg/dL (74-106)
[2016-12-29 08:09] LABS: ALK PHOS 179 U/L (45-117); BILIRUBIN,TOTAL 0.4 mg/dL (0.2-1.0); CREATININE 0.7 mg/dL (0.7-1.3); SGOT/AST 28 U/L (15-37); SGPT/ALT 57 U/L (12-78); TOT PROT 6.9 g/dl (6.4-8.2)
[2016-12-29] MEDS: ASPIRIN 81 MG CHEWABLE TABLETS PO SCH (09:49)
[2016-12-29] MEDS: PANTOPRAZOLE SOD 40 MG SUSPENSION PACKET NGT SCH (09:49)
[2016-12-29] MEDS: COLLAGENASE CLOSTRIDIUM HIST. 30 GRAMS TUBE TP SCH (09:49)
[2016-12-29 11:13] VITALS: BP 131/67; PULSE 64; TEMP 98.5
== END 2016-12-29 10:38 | DRG 871 ==
LOC: JER 18:33 → JERBED 20:05 → JICU 22:29 → J4W 12-16 22:30 → J6S 12-18 21:22
PROVIDERS: ADMIT Internal Medicine; ATTEND Internal Medicine
PROC: 3E0G76Z Introduction of Nutritional Substance into Upper GI, Via Natural or Artificial Opening (ICD-10-PCS; principal; 2016-12-15)
PROC: 5A1935Z Respiratory Ventilation, Less than 24 Consecutive Hours (ICD-10-PCS; 2016-12-15)
DX: A41.52 Sepsis due to Pseudomonas (principal); J96.21 Acute and chronic respiratory failure with hypoxia; J15.1 Pneumonia due to Pseudomonas; R53.2 Functional quadriplegia; R64 Cachexia; N39.0 Urinary tract infection, site not specified; K80.10 Calculus of gallbladder with chronic cholecystitis without obstruction; J95.09 Other tracheostomy complication; I25.10 Atherosclerotic heart disease of native coronary artery without angina pectoris; I10 Essential (primary) hypertension; R76.11 Nonspecific reaction to tuberculin skin test without active tuberculosis; J39.8 Other specified diseases of upper respiratory tract; E11.9 Type 2 diabetes mellitus without complications; Z79.4 Long term (current) use of insulin; Z88.0 Allergy status to penicillin; I48.91 Unspecified atrial fibrillation; G30.9 Alzheimer's disease, unspecified; F02.80 Dementia in other diseases classified elsewhere, unspecified severity, without behavioral disturbance, psychotic disturbance, mood disturbance, and anxiety; D64.9 Anemia, unspecified; Z93.1 Gastrostomy status; Y83.8 Other surgical procedures as the cause of abnormal reaction of the patient, or of later complication, without mention of misadventure at the time of the procedure
CPT/HCPCS: 36415; 36600; 71010-TC; 80048; 80053; 81003; 81015; 82550; 82803; 83605; 83735; 84100; 84484; 85025; 85610; 85730; 86850; 86900; 86901; 87040; 87070; 87077; 87086; 87186; 87205; 93005; 93010; 94640; 97161-GP; 99285-25; J1644